=== PATIENT | male | born 1970 | race Caucasian/White ===

== ENCOUNTER → 2024-02-09 | Outpatient (CLI) | payer BC, SELFPAY | END | disposition home or self-care (01) | PROVIDERS: PCP Family Medicine; Referring Provider Psychiatry & Neurology Sleep Medicine; Visit Provider Psychiatry & Neurology Sleep Medicine | DX: G47.31 Primary central sleep apnea (principal); G47.33 Obstructive sleep apnea (adult) (pediatric) | CPT/HCPCS: 95811 ==

== ENCOUNTER → 2024-05-08 | Outpatient (CLI) | payer BC, SELFPAY | END | disposition home or self-care (01) | LOC: SL 00:48 | PROVIDERS: PCP Family Medicine; Visit Provider Nurse Practitioner Adult Health | DX: G47.31 Primary central sleep apnea (principal); G47.33 Obstructive sleep apnea (adult) (pediatric) | CPT/HCPCS: 95811 ==

== ENCOUNTER 2024-08-11 08:12 | Outpatient (CLI) | payer BC, SELFPAY ==
--- NOTE | 2024-08-11 08:25 | MRI_ITS ---
STUDY: MRI BRAIN WITH AND WITHOUT CONTRAST (ATTENTION INTERNAL AUDITORY CANALS - I.A.C.''s) REASON FOR EXAM: Male, 54 years old. SENSONEURAL HEARING LOSS,RT EAR TECHNIQUE: Standardized multiplanar fat and water weighted pulse sequences were obtained. IV 19 cc clariscan was administered for the contrast portion of the examination. COMPARISON: None. FINDINGS: Normal bilateral temporal bones. Normal bilateral internal auditory canals. There is no demonstrated intracanalicular or cisternal vestibular schwannoma (acoustic neuroma). There is no enhancement of the bilateral VIIth or VIIIth cranial nerves. Normal bilateral cochlea, vestibules and semicircular canals. Normal size of the ventricles and extra-axial spaces for the patient''s age. Normal white matter tracts of the supratentorial brain. Normal bilateral basal ganglia. Normal thalami. Normal flow voids within the major intracranial circulation suggesting patency by spin echo criteria. Normal venous enhancement. There is no enhancing intra-axial or extra-axial abnormality. There is no extra-axial fluid accumulation. Normal sella turcica, pituitary gland, infundibular stalk, optic chiasm and hypothalamus. Normal tectal plate and pineal gland. Normal midbrain, sanna and medulla. Normal cerebellum. Normal basal cisterns. No demonstrated orbital abnormality, within the constraints of a routine brain study. Mild diffuse mucosal thickening in the right maxillary sinus and small mucous retention cyst or polyp on the left. Normal calvarium and skull base. Normal visualized soft tissue structures. Normal visualized upper cervical spine. MRI/Brain W/WO Contrast IMPRESSION: Normal unenhanced and enhanced MRI of the bilateral internal auditory canals (I.A.C''s). Mild bilateral maxillary sinusitis likely chronic Electronically Signed: Devonte Magana MD at 23:01 EST ,
== END 2024-08-11 23:59 | disposition home or self-care (01) ==
PROVIDERS: PCP Family Medicine; Referring Provider Otolaryngology; Visit Provider Otolaryngology
DX: H90.41 Sensorineural hearing loss, unilateral, right ear, with unrestricted hearing on the contralateral side (principal)
CPT/HCPCS: 70553; A9575

== ENCOUNTER 2025-01-21 22:19 | Emergency (ER) | payer BC, SELFPAY ==
[2025-01-21 22:19] VITALS: BP 161/72; PULSE 92; RESP 16; TEMP 37; O2SAT 100; BMI 25.1
[2025-01-21 22:22] VITALS: O2SAT 99
[2025-01-21 22:50] LABS: Absolute Lymphocyte Count 0.69 X10^3/uL (0.83-4.51); Absolute Neutrophil Count 2.5 X10^3/uL (2.0-7.7); Basophil# 0.03 X10^3/uL; Basophil% 0.7 % (0-1); Eosinophil# 0.24 X10^3/uL; Eosinophils% 5.9 % (0-5); Hematocrit 37.5 % (40-54); Hemoglobin 13.2 g/dL (13.0-16.5); Lymphocyte # 0.69 X10^3/ul (0.83-4.51); Lymphocyte % 16.9 % (19-41); Mean Corp Hgb Conc 35.2 g/dL (32-36); Mean Corpuscular Hgb 27.7 pg (27.0-32.0); Mean Corpuscular Volume 78.8 fL (80-94); Mean Platelet Vol. 9.7 fl (6.2-12.0); Monocyte# 0.57 X10^3/uL; NRBC Flagged by Analyzer 0 % (0-5); Neutrophil # 2.53 X10^3/uL (2.7-7.7); Platelet Count 185 K/mm3 (150-450); RBC Distribution Width SD 36.5 fl (35.1-43.9); Red Blood Count 4.76 M/mm3 (4.6-6.2); White Blood Count 4.1 K/mm3 (4.4-11.0)
--- NOTE | 2025-01-21 22:50 | RAD_ITS ---
PROCEDURE: CHEST 1 VIEW (PORTABLE) 01/21/2025 REASON FOR EXAM: CHEST PAIN TECHNIQUE: Frontal view of the chest. COMPARISON: None. FINDINGS: Hardware: None. Heart: The heart size is normal. Lungs: Ill-defined, right mid lung zone opacity. Mild bilateral pulmonary opacities, greatest within the perihilar regions. No pleural effusion or pneumothorax. Bones: The bones are unremarkable. RAD/Chest 1 View (Portable) IMPRESSION: 1. Right midlung zone opacity. Repeat chest radiograph with lateral view recom mended. 2. Mild bilateral pulmonary opacities, which may reflect pneumonitis or pneumon ia. Reading Location: [id number]
[2025-01-21 23:03] LABS: Anion Gap 14 (5-15); BUN 22 mg/dL (4-19); BUN/Creat Ratio 15.7 RATIO (10-20); Calcium,Total 12.5 mg/dL (7.6-11.0); Carbon Dioxide 23.3 mmol/L (21.0-32.0); Chloride 101 mmol/L (98-108); Creatinine, Serum 1.41 mg/dL (0.70-1.20); EST Glomerular Filtration Rate 60 (>60); Estimated Creatinine Clearance 71.25 ml/min (50-250); Glucose 127 mg/dL (70-99); Potassium 4.1 mmol/L (3.3-5.1); Sodium Level 138 mmol/L (133-145); Troponin T High Sensitivity 17 ng/L (<=22)
[2025-01-21 23:19] VITALS: BP 121/95; PULSE 95; RESP 16; O2SAT 98
[2025-01-21] MEDS: Ondansetron 4 MG/2 ML Vial IV (23:30)
[2025-01-21] MEDS: 0.9% Normal Saline (1000mL) 1,000 ML 999 ML IV (23:30)
--- NOTE | 2025-01-21 23:40 | RAD_ITS ---
PROCEDURE: CHEST 1 VIEW 01/21/2025 REASON FOR EXAM: Shortness of breath TECHNIQUE: Frontal view of the chest. COMPARISON: None FINDINGS: Bilateral perihilar infiltrates are seen extending to the lower lobes. There is no demonstrated pleural abnormality. Normal heart and pericardium. Normal mediastinum and felipe. Normal visualized pulmonary arteries. Normal visualized aortic arch and descending thoracic aorta. Normal visualized thoracic spine. Normal visualized ribs, clavicles, and shoulders. There is no demonstrated abnormality of the visualized soft tissue structures of the upper abdomen. RAD/Chest 1 View IMPRESSION: Bilateral perihilar and lower lobe infiltrates. Reading [facility]
[2025-01-21 23:53] LABS: Magnesium 1.7 mg/dL (1.5-2.2)
[2025-01-22] VITALS: BP 132/87; PULSE 88; RESP 16; O2SAT 98
[2025-01-22] MEDS: 0.9% Normal Saline (1000mL) 1,000 ML 999 ML IV (00:37)
--- NOTE | 2025-01-22 00:51 | EDS_ITS ---
HPI History of Present Illness Chief Complaint: Chest Pain Informant: patient and spouse/S.O. Narrative Narrative: Patient is a 54-year-old male with type 2 diabetes currently on Trulicity and metformin. He states he has been following with his family doctor because he has been having bouts of abdominal discomfort mainly in the right upper quadrant. He states outpatient labs have shown mild hypercalcemia and he is also had a gallbladder ultrasound recently secondary to his recurrent symptoms. He states this evening however he did have more midsternal chest discomfort and as this was different from the other symptoms he has had there was concerned this could be cardiac and he presents for evaluation. Patient also reports he has had mild cough that has been recurrent over the past few weeks to month but denies any history of lung disease such as COPD emphysema smoking or vaping. [facility] Medical History (Updated 01/25/25 @ 02:[address] Elliot Caceres, DO) COVID Diabetes GERD (gastroesophageal reflux disease) Home Medications ?Medication ?Instructions ?Recorded ?Last Taken ?Type aspirin 81 mg tablet,delayed 81 mg PO DAILY 01/21/25 U nknown History release (Adult Aspirin Regimen) dulaglutide 0.75 mg/0.5 mL 0.75 mg subcut [place] 01/21/25 Unknown History subcutaneous pen injector (Trulicity) gabapentin 300 mg capsule 300 mg PO DAILY 01/21/25 Unk nown History loratadine 10 mg tablet 10 mg PO DAILY 01/21/25 Unkn own History (Allerclear) metformin 500 mg tablet,extended 1,000 mg PO BID 01/21 Unknown History release 24 hr Allergy/AdvReac Type Severity Reaction Status Date / Time Penicillins (PCN) Allergy Rash Verified 01/21/25 22:20 Social History Smoking Status: Never smoker [facility] ED Constitutional Constitutional ED: Denies chills or fever(s) ENT ENT ED: Denies sore throat Cardiovascular Cardiovascular: Reports chest pain; Denies palpitations or racing heartbeat Respiratory/Chest Respiratory/Chest: Reports cough; Denies dyspnea Gastrointestinal Gastrointestinal: Denies abdominal pain, diarrhea, nausea or vomiting Genitourinary Genitourinary ED: Denies dysuria Musculoskeletal Musculoskeletal: Denies back pain or myalgias Integumentary Denies rash Neurologic Neurologic: Denies headache(s) Hematologic/Lymphatic Hematologic/Lymphatic: Denies easy bleeding or easy bruising EXAM Physical Exam Const Vital Signs: 01/21/25 22:19 01/21/25 22:22 01/21/25 22:35 Temperature 98.6 F Temperature Source Oral Pulse Rate 92 Respiratory Rate 16 Respiratory Effort Normal Non-Labored Blood Pressure 161/72 H Blood Pressure Mean 101 Pulse Ox 100 99 Oxygen Delivery Method Room Air Room Air 01/21/25 23:19 01/22/25 00:00 Temperature Temperature Source Pulse Rate 95 88 Respiratory Rate 16 16 Respiratory Effort Blood Pressure 121/95 H 132/87 H Blood Pressure Mean 103 102 Pulse Ox 98 98 Oxygen Delivery Method Room Air Room Air Positive well nourished and well developed General Appearance ED: well developed; Negative for pallor HEENT HEENT Narrative: Normocephalic atraumatic No tongue or lip swelling no oral lesions no airway edema or compromise No secondary findings in the posterior pharynx to suggest infection Eyes PERRL and EOMs intact bilaterally General Eye ED: Negative for scleral icterus Neck supple and no JVD Neck Narrative: No nuchal rigidity or meningeal signs Chest Wall Chest Narrative: There is mild reproducible chest wall pain along the costal joints with palpation but no bony deformity or crepitance Resp normal respiratory effort Resp Narrative: Patient has faint rhonchi in the bilateral lower lobes without nasal flaring retractions tachypnea or accessory muscle use Cardio regular rate and regular rhythm Rate: other Other Details: Heart is regular rate and rhythm Radial and carotid pulses are equal and symmetric GI normal to inspection, nondistended, normoactive bowel sounds, non-tender, non- distended and no masses GI Narrative: No voluntary guarding or rigidity or pulsatile mass Auscultation: normoactive bowel sounds Palpation: soft Back/Spine no CVA tenderness Extremity normal to inspection Extremity Narrative: Negative Homans' sign bilaterally Neuro oriented x3, CN's II-XII intact bilaterally and no sensory deficits noted Sensorium / Orientation: alert Motor Exam: strength 5/5 throughout Psych mental status grossly normal Skin no rashes or lesions noted and no wounds General Skin Exam: Negative for jaundice or pallor MDM MDM MDM Narrative Medical decision making narrative: Patient arrived to the ER hypertensive but otherwise with stable vitals. He does have moderate risk factors for cardiovascular disease and the fact he is a diabetic and male over the age of 40. Secondary to this basic labs with initial and delta troponin were obtained. Based on his report of intermittent cough there is concern the chest pain could be related to lung pathology such as pneumonia pneumothorax or pleural effusion. Therefore chest x-ray was ordered. Labs revealed an initial troponin of 17 with a delta of 16 which is within normal range and indicating no signs of active heart damage. EKG was also normal sinus rhythm without ischemia or dysrhythmia change. The patient's chest x-ray did show findings concerning for pneumonia. He does not have a fever or white count but with his recurrent cough for the past weeks to months this could be atypical walking pneumonia. He is not showing signs of sepsis or hypoxia so therefore there is no need for admission. But with potential atypical/mycoplasma pneumonia I will place him on a Zithromax as well as doxycycline to cover for typical microbes. The patient is chest pain-free on reevaluation as his troponins are normal and he does not have persistent symptoms I do not feel need for further evaluation in the ER and is otherwise safe for discharge. The patient calcium is elevated at 12.5 but this is up by approximately 1 point from upper limit of normal and he is not have acute findings of hypercalcemia. I do feel that after the 2 L of IV hydration in the ER this should improve as well. As the hypercalcemia is a known issue he can continue to follow-up with his family doctor regarding this evaluation. History & Record Review Discussion w/independent historian: Patient and Significant other Lab Data Attestation: I reviewed the patient's lab results. Labs: Laboratory Results - last 24 hr 01/21/25 22:28 WBC 4.1 L RBC 4.76 Hgb 13.2 Hct 37.5 L MCV 78.8 L MCH 27.7 MCHC 35.2 RDW Std Deviation 36.5 RDW Coeff of Samuel 13.0 Plt Count 185 MPV 9.7 Immature Gran % (Auto) 0.500 Neut % (Auto) 62.0 Lymph % (Auto) 16.9 L [place] % (Auto) 14.0 H Eos % (Auto) 5.9 H Baso % (Auto) 0.7 Absolute Neuts (auto) 2.5 Absolute Lymphs (auto) 0.69 L Nucleated RBC % 0 Sodium 138 Potassium 4.1 Chloride 101 Carbon Dioxide 23.3 Anion Gap 14 BUN 22 H Creatinine 1.41 H Estim Creat Clear Calc 71.25 Est GFR (MDRD) Non-Af 60 BUN/Creatinine Ratio 15.7 Glucose 127 H Calcium 12.5 H Magnesium 1.7 Troponin T High Sens 17 Radiography Diagnostic Testing: Clinical Impression(s) from Imaging Studies Chest X-Ray 01/21/25 22:50 IMPRESSION: 1. Right midlung zone opacity. Repeat chest radiograph with lateral view recommended. 2. Mild bilateral pulmonary opacities, which may reflect pneumonitis or pneumonia. Reading Location: [facility] Chest X-Ray 01/21/25 23:40 IMPRESSION: Bilateral perihilar and lower lobe infiltrates. Reading Location: [place] [id number] Chest x-ray as interpreted by the emergency medicine physician reveals hazy opacity in the mid to lower lobes concerning for developing pneumonia Discharge Plan Triage Chief Complaint: Chest Pain ED Provider: Elliot Caceres Dx/Rx/DC Orders Clinical Impression: Nonspecific chest pain, Type 2 diabetes mellitus, Pneumonia, Hypercalcemia Prescriptions: No Action gabapentin 300 mg capsule 300 mg PO DAILY metformin 500 mg tablet extended release 24 hr 1,000 mg PO BID Trulicity 0.75 mg/0.5 mL pen injector 0.75 mg subcut [place]OU[place] loratadine [Allerclear] 10 mg tablet 10 mg PO DAILY aspirin [Adult Aspirin Regimen] 81 mg tablet,delayed release (DR/EC) 81 mg PO DAILY Primary Care Provider: Edouard Mcgee Referrals: Edouard Mcgee MD [Primary Care Provider] - Print Language: [place] Disposition Disposition: Home, Self Care Discharge Date/Time: 01/22/25 02:28
[2025-01-22 01:00] VITALS: BP 141/93; PULSE 88; RESP 14; O2SAT 97
[2025-01-22 05:28] LABS: Troponin T High Sens 2 HR 16 ng/L (<=22)
--- NOTE | 2025-01-22 06:00 | ED.RN ---
See downtime charting.
== END 2025-01-22 02:28 | disposition home or self-care (01) ==
LOC: ED 22:39
PROVIDERS: Emergency Provider Emergency Medicine; PCP Family Medicine; Visit Provider Emergency Medicine
DX: R07.9 Chest pain, unspecified (principal); E11.9 Type 2 diabetes mellitus without complications; J18.9 Pneumonia, unspecified organism; E83.52 Hypercalcemia; K21.9 Gastro-esophageal reflux disease without esophagitis; Z79.85 Long-term (current) use of injectable non-insulin antidiabetic drugs; Z79.84 Long term (current) use of oral hypoglycemic drugs; Z79.82 Long term (current) use of aspirin
CPT/HCPCS: 71045; 80048; 83735; 84484; 85025; 93005; 96361; 96374; 99284; A4216; J2405

== ENCOUNTER 2025-02-25 20:44 | Inpatient (IN) | payer BC, SELFPAY ==
[2025-02-25 20:45] VITALS: BP 124/92; PULSE 105; RESP 18; TEMP 37.3; O2SAT 95; BMI 24.4
[2025-02-25 20:48] VITALS: BP 124/92; PULSE 105; RESP 18; TEMP 37.3; O2SAT 95
--- OUTSIDE RECORDS SUMMARY | 2025-02-25 22:05 | XMS RPT_ITS | CCD ---
Author Organization [facility] Care Team Providers Care Cork Compounder Name Role Phone Edouard Noland MD Primary Care Provider Zoie Grijalva Unavailable Jairo [facility], [place]i Unavailable Zoie Grijalva Unavailable Unavailable [facility], [place] Unavailable Edouard Noland MD Primary Care Provider Haagen IMMIGRATION PARALEGAL.MOVING PICTURE OPERATORBobbi Unavailable Suppan IMMIGRATION PARALEGAL.MOVING PICTURE OPERATOR, Adrienne A Unavailable Suppan IMMIGRATION PARALEGAL.MOVING PICTURE OPERATOR, Adrienne A Unavailable [phone] Dr. Edouard Noland MD Primary Care Provider Dr. Elliot Caceres DO Emergency Provider Camryn PROCESS IMPROVEMENT SPECIALIST, Jh Briscoe Attending Unavailable Edouard Noland Primary Care Unavailable Chandler Ni Referring UnavailChandler Kingsley Attending Unavailsam e Edouard Noland Primary Care Unavailable Elliot Caceres Attending Unavailable Edouard Noland Primary Care Unavailable Edouard Ramires Referring Unavailable Edouard Ramires Attending Unavailable Edouard Noland Primary Care Unavailable EDOUARD NOLAND Referring Unavailable EDOUARD NOLAND Primary Care Unavailable EDOUARD NOLAND Referring Unavailable EDOUARD NOLAND Primary Care Unavailable EDOUARD NOLAND Referring Unavailable EDOUARD NOLAND Primary Care Unavailable JH COWAN Attending Unavailable EDOUARD NOLAND Primary Care Unavailable EDOUARD NOLAND Primary Care Unavailable BOBBI HART Attending Unavailable EDOUARD NOLAND Primary Care Unavailable BOBBI HART Referring Unavailable EDOUARD NOLAND Primary Care Unavailable BOBBI HART Referring Unavailable EDOUARD NOLAND Primary Care Unavailable JH COWAN Attending Unavailable EDOUARD NOLAND Primary Care Unavailable EDOUARD NOLAND Primary Care Unavailable EDOUARD NOLAND Attending Unavailable EDOUARD NOLAND Primary Care Unavailable EDOUARD NOLAND Referring Unavailable EDOUARD NOLAND Primary Care Unavailable EDOUARD NOLAND Referring Unavailable EDOUARD NOLAND Primary Care Unavailable EDOUARD NOLAND Referring Unavailable EDOUARD NOLAND Primary Care Unavailable EDOUARD NOLAND Primary Care Unavailable Allergies Allergy Classification Reported Allergen(s) Allergy Type Date of Onset Reaction(s) Facility (20 sources) Amoxicillin; Translations: [AMOXICILLIN] Drug Allergy 5 [facility] Work Phone: (20 sources) Animal Dander; Translations: [ANIMAL DANDER] Drug Intolerance 2 Intolerance [facility] Work Phone: (20 sources) Ketoconazole; Translations: [KETOCONAZOLE] Drug Allergy 3 [facility] (1 source) Penicillins Allergy to substance 5 [facility] (1 source) Penicillins Drug allergy (disorder) 5 [facility] Repository Medications Current Medications Medication Drug Class(es) Dates Sig (Normalized) Sig (Original) aspirin 81 mg delayed release oral tablet (20 sources) Platelet Aggregation Inhibitor, Nonsteroidal Anti-inflammatory Drug Start: 01-21-2025 take 1 tablet by mouth once daily Aspirin (Adult Aspirin Regimen) 81 mg tablet,delayed release (DR/EC) Active 81 mg PO DAILY January 21, 2025 12:00am Comment on above: Take 81 mg by mouth once daily. Blood-Glucose Meter monitoring kit (1 source) Start: 01-02-2023 End: 01-03-2023 Blood-Glucose Meter monitoring kit Indications: Controlled type 2 diabetes mellitus without complication, without long-term current use of insulin ([facility]) Glucose Meter of Choice - Kit - Dx: Type 2 DM - Controlled E11.9 1 Each 0 01/02/2023 01/03/2023 Active Comment on above: Glucose Meter of Cho ice - Kit - Dx: Type 2 DM - Controlled E11.9 Blood-Glucose Meter,Continuous (FREESTYLE WYATT 3 READER) misc (8 sources) Start: 07-02-2025 Blood-Glucose Meter,Continuous (FREESTYLE WYATT 3 READER) [facility] [place]ications: Controlled type 2 diabetes mellitus without complication, without long-term current use of insulin (HCC) Use to check blood sugar at least four (4) times daily. 1 each 01/28/2025 Active Blood-Glucose Sensor (FREESTYLE WYATT 3 PLUS SENSOR) benjy (8 sources) Start: 01-28-2025 Blood-Glucose Sensor (FREESTYLE WYATT 3 PLUS SENSOR) benjy Indications: Controlled type 2 diabetes mellitus without complication, without long-term current use of insulin (HCC) Apply new sensor every fourteen (14) days to upper arm. 6 each 3 01/28/2025 Active Blood-Glucose Sensor (FREESTYLE WYATT 3 SENSOR) benjy (20 sources) Start: 01-16-2024 Blood-Glucose Sensor (FREESTYLE WYATT 3 SENSOR) benjy Indications: Controlled type 2 diabetes mellitus without complication, without long-term current use of insulin (HCC) Apply new sensor every fourteen (14) days to upper arm. 6 Each 4 01/16/2024 Active Start: 01-08-2023 End: 01-16-2024 Blood-Glucose Sensor (FREEST YLE WYATT 3 SENSOR) benjy Indications: Controlled type 2 diabetes mellitus without complication, without long-term current use of insulin (HCC) Apply new sensor every fourteen (14) days to upper arm. 6 Each 4 01/08/2023 01/16/2024 Discontinued Start: 01-08-2023 Blood-Glucose Sensor (FREESTYLE WYATT 3 SENSOR) benjy Indications: Controlled type 2 diabetes mellitus without complication, without long-term current use of insulin (HCC) Apply new sensor every fourteen (14) days to upper arm. 6 Each 4 01/08/2023 Active Comment on above: Apply new sensor lowell ry fourteen (14) days to upper arm. CPAP/BIPAP/OTHER (20 sources) Start: 10-09-2024 End: 02-24-2052 CPAP/BIPAP/OTHER Indications: Central sleep apnea , MIKHAIL (obstructive sleep apnea) biPAP ST 16/11 cmH2O with BUR 12 DME [facility] 1 Each 10/09/2024 02/24/2052 Active Start: 09-01-2024 End: 01-17-2052 CPAP/BIPAP/OTHER Bilevel ST 14/10 cmH2O with BUR 12 BPM [facility] 1 Each 09/01/2024 01/17/2052 Active Start: 05-27-2024 End: 09-01-2024 CPAP/BIPAP/OTHER biPAP ST 13 /9 cmH2O with BUR [address] [facility] [place] 1 Each 05/27/2024 09/01/2024 Discontinued Start: 05-27-2024 End: 10-12-2051 CPAP/BIPAP/OTHER biPAP ST 13 /9 cmH2O with BUR 12 bpm [facility] 1 Each 05/27/2024 10/12/2051 Active 0.5 ml dulaglutide 1.5 mg/ml auto-injector (19 sources) GLP-1 Receptor Agonist Start: 01-12-2025 End: 01-12-2026 inject 0.75 mg by subcutaneous injection every week dulaglutide (TRULICITY) 0.75 mg/0.5 mL pen injector Indications: Controlled type 2 diabetes mellitus without complication, without long-term current use of insulin (HCC) Inject 0.75 mg subcutaneously one time a week. 6 mL 3 01/12/2025 01/12/2026 Active flash glucose sensor (FREESTYLE WYATT 2 SENSOR) kit (20 sources) Start: 01-16-2024 flash glucose sensor (FREESTYLE WYATT 2 SENSOR) kit Indications: Controlled type 2 diabetes mellitus without complication, without long-term current use of insulin (HCC) Apply new sensor every fourteen (14) days to upper arm. 6 Each 4 01/16/2024 Active Start: 01-16-2023 End: 01-16-2024 flash glucose sensor (FREEST YLE WYATT 2 SENSOR) kit Indications: Controlled type 2 diabetes mellitus without complication, without long-term current use of insulin (HCC) Apply new sensor every fourteen (14) days to upper arm. 6 Each 4 01/16/2023 01/16/2024 Discontinued Start: 01-16-2023 flash glucose sensor (FREESTYLE WYATT 2 SENSOR) kit Indications: Controlled type 2 diabetes mellitus without complication, without long-term current use of insulin (HCC) Apply new sensor every fourteen (14) days to upper arm. 6 Each 4 01/16/2023 Active Comment on above: Apply new sensor lowell ry fourteen (14) days to upper arm. fluconazole 150 mg oral tablet (11 sources) Azole Antifungal Start: End: take 1 tablet by mouth every week fluconazole (DIFLUCAN) 150 mg tablet Take 1 tablet by mouth one time a week. 4 tablet 0 11/12/2023 12/12/2023 Active Start: 11-01-2023 End: 04-18-2024 fluconazole (DIFLUCAN) 150 m g tablet Indications: Tinea corporis I tab by mouth every 3 days until gone 3 tablet 11/01/2023 04/18/2024 Discontinued Comment on above: I tab by mouth every 3 days until gone Take 1 tablet by odessa th one time a week. gabapentin 300 mg oral capsule (20 sources) Anti-epileptic Agent Start: 01-14-2024 End: 12-02-2024 gabapentin (NEURONTIN) 300 mg capsule Indications: RLS (restless legs syndrome) Take 1 capsule after arriving home from work or 1 hour before bedtime. 90 capsule 1 09/01/2024 Active loratadine 10 mg oral tablet (20 sources) Start: 01-21-2025 take 1 tablet by mouth once daily Loratadine (Allerclear) 10 mg tablet Active 10 mg PO DAILY January 21, 2025 12:00am loratadine 10 mg cap Take by mouth. Active Comment on above: Take by mouth. 24 hr metFORMIN hydrochloride 500 mg extended release oral tablet (20 sources) Biguanide Start: 01-21-2025 take 3 tablets by mouth once daily metFORMIN ER (GLUCOPHAGE XR) 500 mg 24 hr tablet Take 3 tablets by mouth once daily. 270 tablet 01/21/2025 Active Start: 01-21-2025 Metformin 500 mg tablet extended release 24 hr Active 1000 mg PO TWICE A DAY January 21, 2025 12:00am Start: 09-22-2024 End: 01-12-2025 take 4 tablets by mouth once daily metFORMIN ER (GLUCOPHAGE XR) 500 mg 24 hr tablet Take 4 tablets by mouth once daily. 360 tablet 3 09/22/2024 01/12/2025 Discontinued Start: 08-13-2023 End: 09-20-2024 take 4 tablets by mouth once daily metFORMIN ER (GLUCOPHAGE XR) 500 mg 24 hr tablet Take 4 tablets by mouth once daily. 360 tablet 3 08/13/2023 09/20/2024 Discontinued Start: 06-25-2023 take 1 tablet by odessa th twice daily at mealtime metFORMIN (GLUCOPHAGE) 500 mg tablet Indications: Controlled type 2 diabetes mellitus without complication, without long-term current use of insulin (HCC) Take 1 tablet by mouth two times a day with meals. 180 tablet 0 06/25/2023 Active Start: 01-02-2023 End: 01-02-2024 take 1 tablet by mouth once daily at breakfast metFORMIN (GLUCOPHAGE) 500 mg tablet Indications: Controlled type 2 diabetes mellitus without complication, without long-term current use of insulin (HCC) Take 1 tablet by mouth daily with breakfast. 90 tablet 3 01/02/2023 06/25/2023 Discontinued Comment on above: Take 1 tablet by odessa th daily with breakfast. Take 1 tablet by odessa th two times a day with meals. Take 4 tablets by mo uth once daily. sildenafil 100 mg oral tablet (18 sources) Phosphodiesterase 5 Inhibitor Start: End: take 1 tablet by mouth once daily as needed sildenafil (VIAGRA) 100 mg tablet Indications: Erectile dysfunction, unspecified erectile dysfunction type Take 1 tablet by mouth once daily as needed. Take 30-60 minutes before sexual activity. 6 tablet 01/12/2025 01/12/2026 Active terbinafine hydrochloride 10 mg/ml topical cream (3 sources) Allylamine Antifungal Start: End: terbinafine HCl (LAMISIL AT) 1 % cream Indications: Tinea corporis Apply to affected area two times a day for 14 days. 30 g 1 11/12/2023 11/26/2023 Active Comment on above: Apply to affected ar ea two times a day for 14 days. triamcinolone acetonide 1 mg/ml topical cream (2 sources) Corticosteroid Start: End: triamcinolone acetonide (KENALOG) 0.1 % cream Indications: Tinea corporis Apply 1 application to affected area two times a day for 14 days. Apply to affected area. Location: multiple 15 g 1 11/01/2023 11/15/2023 Active Comment on above: Apply 1 application to affected area two times a day for 14 days. Apply to affected area. Location: multiple Completed/Discontinued Medications Medication Drug Class(es) Dates Sig (Normalized) Sig (Original) acetaminophen 325 mg / oxyCODONE hydrochloride 5 mg oral tablet (1 source) Opioid Agonist Start: 01-15-2016 End: 01-21-2025 Oxycodone-Acetamino phen 1 TABLET tablet Discontinued 1 - 2 {tbl} PO EVERY 6 HOURS NEEDED as needed for Mod/Severe (pain scale 6-10) January 15, 2016 12:00am January 21, 2025 10:30pm apple cider vinegar 600 mg oral capsule (9 sources) End: 01-21-2025 APPLE CIDER VINEGAR ORAL Take 600 mg by mouth. 01/21/2025 Discontinued Ascorbic Acid (20 sources) Vitamin C End: 07-07-2024 ascorbic acid (VITAMIN C ORAL) Take by mouth. 07/07/2024 Discontinued ascorbic acid (V ITAMIN C ORAL) Take by mouth. Active ascorbic acid (V ITAMIN C ORAL) Take by mouth. 0 Active Comment on above: Take by mouth. cholecalciferol, vitamin D3, (VITAMIN D3 ORAL) (20 sources) End: 01-21-2025 cholecalciferol, vitamin D3, (VITAMIN D3 ORAL) Take 2,000 Units by mouth. 01/21/2025 Discontinued cholecalciferol, vitamin D3, (VITAMIN D3 ORAL) Take 2,000 Units by mouth. Active cholecalciferol, vitamin D3, (VITAMIN D3 ORAL) Take by mouth. Active cholecalciferol, vitamin D3, (VITAMIN D3 ORAL) Take by mouth. 0 Active Comment on above: Take by mouth. Cinnamon Preparation (20 sources) Non-Standardized Food Allergenic Extract End: 01-21-2025 CINNAMON With berberine 01/21/2025 Discontinued CINNAMON With be rberine Active CINNAMON Active CINNAMON COMPOUNDED PRESCRIPTION (20 sources) Start: 05-27-2019 End: 09-02-2024 COMPOUNDED PRESCRIPTION Yecenia cations: MIKHAIL (obstructive sleep apnea) Nasal mask for CPAP and any other necessary supplies such as tubing #1 G47.33 MIKHAIL (obstructive sleep apnea) (primary encounter diagnosis) 1 Each 05/27/2019 09/02/2024 Discontinued Start: 05-27-2019 COMPOUNDED PRE SCRIPTION Indications: MIKHAIL (obstructive sleep apnea) Nasal mask for CPAP and any other necessary supplies such as tubing #1 G47.33 MIKHAIL (obstructive sleep apnea) (primary encounter diagnosis) 1 Each 05/27/2019 Active Start: 05-27-2019 COMPOUNDED PRE SCRIPTION Indications: MIKHAIL (obstructive sleep apnea) Nasal mask for CPAP and any other necessary supplies such as tubing #1 G47.33 MIKHAIL (obstructive sleep apnea) (primary encounter diagnosis) 1 Each 0 05/27/2019 Active Start: 02-28-2016 End: 09-02-2024 COMPOUNDED PRESCRIPTION Yecenia cations: MIKHAIL (obstructive sleep apnea) Mask (per patient preference) optional chin strap (if indicated) , filters, tubing, humidifier and lifetime supplies. Dx. MIKHAIL G47.33 1 Each 0 02/28/2016 09/02/2024 Discontinued Start: 02-28-2016 COMPOUNDED PRE SCRIPTION Indications: MIKHAIL (obstructive sleep apnea) Mask (per patient preference) optional chin strap (if indicated) , filters, tubing, humidifier and lifetime supplies. Dx. MIKHAIL G47.33 1 Each 0 02/28/2016 Active Start: 01-12-2015 End: 09-02-2024 COMPOUNDED PRESCRIPTION cpap supplies, including mask. DX: MIKHAIL 1 Units 0 01/12/2015 09/02/2024 Discontinued Start: 01-12-2015 COMPOUNDED PRE SCRIPTION cpap supplies, including mask. DX: MIKHAIL 1 Units 0 01/12/2015 Active Start: 05-03-2012 End: 09-02-2024 COMPOUNDED PRESCRIPTION Init iate CPAP @ 11 cm of water with humidification. EPR setting of 3. Mask (per patient preference) Mirage FX wide was used during study. Chin strap (if indicated) tubing, filters, humidifier and lifetime supplies. Dx. Central Sleep Apnea 327.2 1 Device 0 05/03/2012 09/02/2024 Discontinued Start: 05-03-2012 COMPOUNDED PRE SCRIPTION Initiate CPAP @ 11 cm of water with humidification. EPR setting of 3. Mask (per patient preference) Mirage FX wide was used during study. Chin strap (if indicated) tubing, filters, humidifier and lifetime supplies. Dx. Central Sleep Apnea 327.2 1 Device 0 05/03/2012 Active Comment on above: Initiate CPAP @ 11 c m of water with humidification. EPR setting of 3. Mask (per patient preference) Mirage FX wide was used during study. Chin strap (if indicated) tubing, filters, humidifier and lifetime supplies. Dx. Central Sleep Apnea 327.2 cpap supplies, inclu ding mask. DX: MIKHAIL Mask (per patient pr eference) optional chin strap (if indicated) , filters, tubing, humidifier and lifetime supplies. Dx. MIKHAIL G47.33 Nasal mask for CPAP and any other necessary supplies such as tubing #1 G47.33 MIKHAIL (obstructive sleep apnea) (primary encounter diagnosis) dihydroberberine (BERBERINE ES-5 ORAL) (17 sources) End: 2024 take 1 tablet by mouth once daily dihydroberberine (BERBERINE ES-5 ORAL) Take 1 tablet by mouth once daily. 01/21/2025 Discontinued take 1 tablet by mouth once sarah y dihydroberberine (BERBERINE ES-5 ORAL) Take 1 tablet by mouth once daily. Active fluticasone propionate 0.05 mg/actuat metered dose nasal spray (4 sources) Corticosteroid Start: 05-21-2019 End: 01-02-2023 take 2 spray(s) by mouth once daily fluticasone (FLONASE) 50 mcg/actuation nasal spray Indications: MIKHAIL (obstructive sleep apnea) Use 2 Sprays in each nostril once daily. Rinse mouth after use. 1 Bottle 11 05/21/2019 01/02/2023 Discontinued (Discontinued by Patient) Start: 01-14-2016 End: 01-21-2025 Fluticasone Propionate 1 SPR AY spray,suspension Discontinued 1 NMA NASAL DAILY January 14, 2016 12:00am January 21, 2025 10:30pm Comment on above: Use 2 Sprays in each nostril once daily. Rinse mouth after use. ketoconazole 20 mg/ml topical cream (3 sources) Azole Antifungal Start: 9 End: 3 ketoconazole (NIZORAL) 2 % cream Indications: Tinea cruris , Dermatitis Apply 1 application to affected area twice daily. 45 g 1 05/21/2019 01/02/2023 Discontinued (Allergic response) Comment on above: Apply 1 application to affected area twice daily. lutein 25 mg / zeaxanthin 5 mg oral capsule (20 sources) Start: 3 End: 5 take 1 capsule by mouth once daily lutein-zeaxanthin 25-5 mg cap Take 1 capsule by mouth once daily. 07/02/2023 01/21/2025 Discontinued Comment on above: Take 1 capsule by [facility] once daily. Magnesium (20 sources) End: MAGNESIUM ORAL Take 400 mg by mouth. 01/21/2025 Discontinued MAGNESIUM ORAL T neris 400 mg by mouth. Active MAGNESIUM ORAL T neris by mouth. Active MAGNESIUM ORAL T neris by mouth. 0 Active Comment on above: Take by mouth. MEDICATION, NON-DATABASE (20 sources) End: 07-07-2024 MEDICATION, NON-DATABASE Billberry and Lion's Eric 07/07/2024 Discontinued MEDICATION, NON- DATABASE Billberry and Lion[employer] Eric Active MEDICATION, NON- DATABASE Billberry and Lion[employer] Eric 0 Active Comment on above: Billberry and Lion[employer] Eric mometasone furoate 1 mg/ml topical cream (9 sources) Corticosteroid Start: 05-21-20 End: 06-19-20 mometasone (ELOCON) 0.1 % cream Indications: Dermatitis Apply 1 application to affected area once daily. 45 g 0 05/21/2019 06/19/2023 Discontinued Comment on above: Apply 1 application to affected area once daily. multivitamin tablet (9 sources) End: 01-22-20 take 1 tablet by mouth once daily multivitamin tablet Take 1 tablet by mouth once daily. 01/21/2025 Discontinued take 1 tablet by mouth once sarah y multivitamin tablet Take 1 tablet by mouth once daily. Active nystatin [id number] unt/ml topical cream (20 sources) Polyene Antifungal Start: 09-06-2023 End: 04-18-2024 nystatin (MYCOSTATIN) cream Indications: Chloe albicans infection Apply 1 application to affected area two times a day. 45 g 09/06/2023 04/18/2024 Discontinued Start: 01-02-2023 End: 06-19-2023 nystatin (MYCOSTATIN) cream Indications: Chloe albicans infection Apply 1 application to affected area twice daily. 45 g 0 01/02/2023 06/19/2023 Discontinued Comment on above: Apply 1 application to affected area twice daily. Apply 1 application to affected area two times a day. omeprazole 20 mg delayed release oral capsule (1 source) Proton Pump Inhibitor Start: End: take 1 capsule by mouth at bedtime Omeprazole 20 MG capsule Discontinued 20 mg PO AT BEDTIME January 14, 2016 12:00am January 21, 2025 10:31pm OTC NUTRITIONAL SUPPLEMENT (9 sources) End: 5 OTC NUTRITIONAL SUPPLEMENT Sodium bytyrate 01/21/2025 Discontinued OTC NUTRITIONAL SUPPLEMENT Sodium bytyrate Active Turmeric extract (20 sources) Start: 07-02-2023 End: 01-21-2025 take 1 capsule by mouth once daily turmeric 400 mg cap Take 1 capsule by mouth once daily. 07/02/2023 01/21/2025 Discontinued Start: 07-02-2023 take 1 capsule by mo uth once daily turmeric 400 mg cap Take 1 capsule by mouth once daily. 07/02/2023 Active Start: 07-02-2023 take 1 capsule by mo uth once daily turmeric 400 mg cap Take 1 capsule by mouth once daily. 0 07/02/2023 Active Comment on above: Take 1 capsule by mo uth once daily. vit C/E/Zn/coppr/lutein/ze axan (PRESERVISION AREDS-2 ORAL) (20 sources) End: 07-07-2024 vit C/E/Zn/coppr/lutein/zeaxan (PRESERVISION AREDS-2 ORAL) Take by mouth. 07/07/2024 Discontinued vit C/E/Zn/coppr /lutein/zeaxan (PRESERVISION AREDS-2 ORAL) Take by mouth. Active vit C/E/Zn/coppr /lutein/zeaxan (PRESERVISION AREDS-2 ORAL) Take by mouth. 0 Active Comment on above: Take by mouth. VITAMIN A ORAL (20 sources) End: 07-07-2024 VITAMIN A ORAL Take by mouth . 07/07/2024 Discontinued (Other) VITAMIN A ORAL T neris by mouth. Active VITAMIN A ORAL T neris by mouth. 0 Active Comment on above: Take by mouth. VITAMIN B COMPLEX ORAL (6 sources) End: 06-19-2023 VITAMIN B COMPLEX ORAL Take by mouth. 0 06/19/2023 Discontinued VITAMIN B COMPLE X ORAL Take by mouth. 0 Active Comment on above: Take by mouth. Zinc (20 sources) End: 01-21-2025 ZINC ORAL Take 50 mg by mout h. 01/21/2025 Discontinued ZINC ORAL Take 5 0 mg by mouth. Active ZINC ORAL Take b y mouth. Active ZINC ORAL Take b y mouth. 0 Active Comment on above: Take by mouth. Problems Active Problems Problem Classification Problem Date Documented Date Episodic/Chronic Diabetes mellitus without complication (20 sources) Type 2 diabetes mellitus without complication; Translations: [Type 2 diabetes mellitus without complications] Onset: 01-02-2023 Chronic Diabetes mellitus without complication (1 source) Hyperglycemia; Translations: [Hyperglycemia, unspecified] Episodic Disorders of lipid metabolism (4 sources) Hypertriglyceridemia; Translations: [Pure hyperglyceridemia] Onset: 07-07-2024 06-19-2023 Chronic Immunizations and screening for infectious disease (1 source) Vaccination needed; Translations: [Encounter for immunization] Episodic Malaise and fatigue (2 sources) Fatigue; Translations: [Other fatigue] Onset: 01-12-2025 01-12-2025 Episodic Mycoses (4 sources) Infection by Chloe albicans; Translations: [Candidiasis, unspecified] Episodic Nonspecific chest pain (1 source) Chest pain, unspecified; Translations: [Chest pain, unspecified] Onset: 01-27-2025 Episodic Nutritional deficiencies (20 sources) Vitamin D deficiency; Translations: [Vitamin D deficiency, unspecified] Onset: 01-02-2023 Chronic Other bone disease and musculoskeletal deformities (3 sources) Osteopenia; Translations: [Other specified disorders of bone density and structure, multiple sites] 01-12-2025 Episodic Other bone disease and musculoskeletal deformities (1 source) Disorder of skeletal system; Translations: [Disorder of bone, unspecified] 01-12-2025 Episodic Other bone disease and musculoskeletal deformities (2 sources) Other specified disorders of bone density and structure, multiple sites; Translations: [Osteopenia of multiple sites] Onset: 01-12-2025 Episodic Other bone disease and musculoskeletal deformities (1 source) Disorder of bone, unspecified; Translations: [Disorder of bone and cartilage] Onset: 01-12-2025 Episodic Other bone disease and musculoskeletal deformities (1 source) Disorder of cartilage, unspecified; Translations: [Disorder of bone and cartilage] Onset: 01-12-2025 Episodic Other connective tissue disease (1 source) Muscle weakness; Translations: [Muscle weakness (generalized)] 07-02-2023 Episodic Other connective tissue disease (1 source) Cramp; Translations: [Cramp and spasm] 01-04-2024 Episodic Other connective tissue disease (1 source) Muscle weakness of limb; Translations: [Other symptoms and signs involving the musculoskeletal system] 01-04-2024 Episodic Other diseases of kidney and ureters (2 sources) Renal impairment; Translations: [Disorder of kidney and ureter, unspecified] 02-12-2025 Episodic Other ear and sense organ disorders (1 source) Sensorineural hearing loss, unilateral, right ear, with unrestricted hearing on the contralateral side; Translations: [Sensorineural hearing loss, unilateral, right ear, with unrestricted hearing on the contralateral side] Onset: 09-01-2024 Chronic Other hereditary and degenerative nervous system conditions (4 sources) Restless legs; Translations: [Restless legs syndrome] 01-14-2024 Chronic Other hereditary and degenerative nervous system conditions (1 source) Restless legs syndrome; Translations: [RLS (restless legs syndrome)] Onset: 09-01-2024 Chronic Other liver diseases (2 sources) Alkaline phosphatase raised; Translations: [Abnormal levels of other serum enzymes] 07-29-2024 Episodic Other liver diseases (3 sources) Elevated liver enzymes level; Translations: [Abnormal levels of other serum enzymes] 01-16-2025 Episodic Other liver diseases (2 sources) Abnormal levels of other serum enzymes; Translations: [Elevated liver enzymes] Onset: 08-13-2024 Episodic Other male genital disorders (2 sources) Male erectile dysfunction, unspecified; Translations: [Impotence of organic origin] Onset: 01-12-2025 01-12-2025 Chronic Other nervous system disorders (2 sources) Paresthesia; Translations: [Paresthesia of skin] Episodic Other nervous system disorders (1 source) Paresthesia of skin; Translations: [Paresthesia] Onset: 01-12-2025 Episodic Other nutritional; endocrine; and metabolic disorders (3 sources) Hypercalcemia; Translations: [Hypercalcemia] 01-13-2025 Chronic Other nutritional; endocrine; and metabolic disorders (1 source) Hypercalcemia; Translations: [Hypercalcemia] Onset: 02-10-2025 Chronic Other nutritional; endocrine; and metabolic disorders (1 source) Weight loss; Translations: [Abnormal weight loss] Episodic Pneumonia (except that caused by tuberculosis or sexually transmitted disease) (3 sources) Bacterial pneumonia; Translations: [Unspecified bacterial pneumonia] Onset: 02-23-2025 02-02-2025 Episodic Residual codes; unclassified (20 sources) Obstructive sleep apnea syndrome; Translations: [Obstructive sleep apnea (adult) (pediatric)] Onset: 04-11-2012 07-25-2021 Chronic Residual codes; unclassified (20 sources) Central sleep apnea syndrome; Translations: [Primary central sleep apnea] Onset: 04-18-2024 01-14-2024 Chronic Residual codes; unclassified (20 sources) Uses home bilevel positive airway pressure ventilation; Translations: [Dependence on other enabling machines and devices] Onset: 09-01-2024 09-01-2024 Chronic Residual codes; unclassified (1 source) Periodic limb movement disorder; Translations: [Periodic limb movement disorder] 09-02-2024 Chronic Residual codes; unclassified (2 sources) Primary central sleep apnea; Translations: [Primary central sleep apnea] Onset: 04-18-2024 Chronic Residual codes; unclassified (1 source) Obstructive sleep apnea (adult) (pediatric); Translations: [MIKHAIL (obstructive sleep apnea)] Onset: 01-10-2024 Chronic Residual codes; unclassified (1 source) Dependence on other enabling machines and devices; Translations: [Uses bilevel positive airway pressure (BPAP) ventilation at home] Onset: 09-01-2024 Chronic Residual codes; unclassified (1 source) Periodic limb movement disorder; Translations: [PLMD (periodic limb movement disorder)] Onset: 09-01-2024 Chronic Screening and history of mental health and substance abuse codes (2 sources) Encounter for screening examination for other mental health and behavioral disorders; Translations: [Encounter for screening for depression] Onset: 01-12-2025 Episodic Past or Other Problems Problem Classification Problem Date Documented Da te Episodic/Chronic Appendicitis and other appendiceal conditions (20 sources) Acute appendicitis with localized peritonitis; Translations: [Acute appendicitis with localized peritonitis, without perforation or gangrene] Onset: 01-18-2016 Resolved: 01-02-2023 01-18-2016 Episodic Other circulatory disease (20 sources) Elevated blood-pressure reading without diagnosis of hypertension; Translations: [Elevated blood-pressure reading, without diagnosis of hypertension] Onset: 03-28-2018 03-28-2018 Episodic Other circulatory disease (1 source) Elevated blood-pressure reading, without diagnosis of hypertension; Translations: [Elevated blood pressure reading without diagnosis of hypertension] Onset: 03-28-2018 Episodic Other connective tissue disease (20 sources) Ganglion cyst; Translations: [Ganglion, unspecified site] Onset: 03-28-2018 03-28-2018 Episodic Other ear and sense organ disorders (20 sources) Tinnitus of right ear; Translations: [Tinnitus, right ear] Onset: 10-19-2010 10-19-2010 Episodic Other nutritional; endocrine; and metabolic disorders (20 sources) Obese class I; Translations: [Obesity, unspecified] Onset: 03-28-2018 Resolved: 01-12-2025 03-28-2018 Chronic Other screening for suspected conditions (not mental disorders or infectious disease) (20 sources) Patient encounter status; Translations: [Encounter for screening for lipoid disorders] Onset: 08-07-2008 Episodic Spondylosis; intervertebral disc disorders; other back problems (20 sources) Cervical radiculitis; Translations: [Radiculopathy, cervical region] Onset: 10-19-2010 10-19-2010 Episodic Results Test Name Value Interpretation Reference Range Facility 1,25-dihydroxyvitamin D3 [Ma ss/Vol]on 02-10-2025 VIT D1,25 DIHYDROXY 91.1 pg/mL High 19.9-79.3 [facility] Comment on above: Order Comment: Speci men Type: BLOOD SPECIMENOrdering Facility: [facility] Address: [address] [place] [address] Performed By: #### 1 649-3, 1988-09 ####[facility] [id number] [place] [address] [place] 25(OH)D3 [facility] 2024 25-hydroxyvitamin D3 [Mass/Vol] 26.5 ng/mL Low 31.0-80.0 [facility] Comment on above: Order Comment: Speci men Type: BLOOD SPECIMENOrdering Facility: [facility] Address: [address] [place] [address] Performed By: #### 1 6493, 1988-09 ####[facility] [id number] [place] [id number] [place] Basic metabolic 2000 panelon 02-10-2025 Anion gap [Moles/Vol] 12 mmol/L Normal 8-15 [facility] Comment on above: Order Comment: Speci men Type: BLOOD SPECIMEN [facility] Address: [address] [place] [address] Performed By: #### 5 5454-3 #### [facility] CLIA [id number] [address] [place] [address] [place] Calcium [Mass/Vol] 11.3 mg/dL High 8.5-10.2 [facility] Comment on above: Order Comment: Speci men Type: BLOOD SPECIMEN [facility] Address: [address] [place] [address] Performed By: #### 5 5454-3 #### [facility] CLIA [id number] [address] [place] [address] [place] Chloride [Moles/Vol] 102 mmol/L Normal 98-107 [facility] Comment on above: Order Comment: Speci men Type: BLOOD SPECIMEN [facility] Address: [address] [place] [address] Performed By: #### 5 5454-3 #### [facility] CLIA [id number] [address] [place] [address] [place] CO2 [Moles/Vol] 23 mmol/L Normal 22-30 [facility] Comment on above: Order Comment: Speci men Type: BLOOD SPECIMEN [facility] Address: [address] [place] [address] Performed By: #### 5 5454-3 #### [facility] CLIA [id number] [address] [place], [place] [id number] [place] Creatinine [Mass/Vol] 1.37 mg/dL High 0.73-1.22 [facility] Comment on above: Order Comment: Jhony brunner Type: BLOOD SPECIMEN [facility] Address: [address] [place] [address] Performed By: #### 5 5454-3 #### [facility] CLIA [id number] [address] [place] [address] [place] eGFRcr SerPlBld CKD-EPI 2020 62 mL/min/1.73m??? Normal >=60 [facility] Comment on above: Order Comment: Jhony brunner Type: BLOOD SPECIMEN [facility] Address: [address] [place] [address] Result Comment: Lynne mated Glomerular Filtration Rate (eGFR) is calculated using the 2020 CKD-EPI creatinine equation. This equation utilizes serum creatinine, sex, and age as parameters. The creatinine assay has traceable calibration to isotope dilution-mass spectrometry. Refer to KDIGO guidelines for clinical interpretation. In patients with unstable renal function, e.g. those with acute kidney injury, the eGFR may not accurately reflect actual GFR. Performed By: #### 5 5454-3 #### [facility] CLIA [id number] [address] [place] [address] [place] Glucose [Mass/Vol] 136 mg/dL High 74-99 [facility] Comment on above: Order Comment: Jhony brunner Type: BLOOD SPECIMEN [facility] Address: [address] [place] [address] Result Comment: The [place] Diabetes Association (ADA) provides guidance for cutoff values for fasting glucose and random glucose. The ADA defines fasting as no caloric intake for at least 8 hours. Fasting plasma glucose results between 100 to 125 mg/dL indicate increased risk for diabetes (prediabetes). Fasting plasma glucose results greater than or equal to 126 mg/dL meet the criteria for diagnosis of diabetes. In the absence of unequivocal hyperglycemia, results should be confirmed by repeat testing. In a patient with classic symptoms of hyperglycemia or hyperglycemic crisis, random plasma glucose results greater than or equal to 200 mg/dL meet the criteria for diagnosis of diabetes. Reference: Standards of Medical Care in Diabetes 2016, [place] Diabetes Association. Diabetes Care. 2016.39(Suppl 1). Performed By: #### 5 5454-3 #### [facility] CLIA [id number] [address] [place] [address] [place] Potassium [Moles/Vol] 3.9 mmol/L Normal 3.7-5.1 [facility] Comment on above: Order Comment: Speci men Type: BLOOD SPECIMEN [facility] Address: [address] [place] [address] Performed By: #### 5 5454-3 #### [facility] CLIA [id number] [address] [place] [address] [place] Sodium [Moles/Vol] 137 mmol/L Normal 136-144 [facility] Comment on above: Order Comment: Speci men Type: BLOOD SPECIMEN [facility] Address: [address] [place] [address] Performed By: #### 5 5454-3 #### [facility] CLIA [id number] [address] [place] [address] [place] Urea nitrogen [Mass/Vol] 18 mg/dL Normal 9-24 [facility] Comment on above: Order Comment: Speci men Type: BLOOD SPECIMEN [facility] Address: [address] [place] [address] Performed By: #### 5 5454-3 #### [facility] CLIA [id number] [address] [place] [address] [place] PTH RELATED PEPTIDEon 2024 PTH RELATED PEPTIDE 3.2 pmol/L High 0.0-2.3 [facility] Comment on above: Order Comment: Speci men Type: BLOOD SPECIMENOrdering Facility: [facility] Address: [address] [place] [address] Result Comment: INTE RPRETIVE INFORMATION: Parathyroid Hormone-Related Peptide This test was developed and its performance characteristics determined by [facility]. It has not been cleared or approved by the US Food and Drug Administration. This test was performed in a CLIA certified laboratory and is intended for clinical purposes. Performed By: [facility] [address] [place] [address] Metal Turner: Bg Merida MD, PhD [place] Number: [id number] Performed By: #### P [facility] ####[facility] [id number] [place] [address] BD DXA - AXIAL SKELETONon BD DXA - AXIAL SKELETON * * *Final Report* * * DATE OF EXAM: Feb 03 2025 11:33AM RHB 0804 - BD DXA - AXIAL SKELETON / PROCEDURE REASON: Osteopenia of multiple sites M85.89 * * * * Physician Interpretation * * * * EXAMINATION: DXA BONE DENSITOMETRY BD DXA - AXIAL SKELETON, BD DXA TRABECLR BONE SCORE (TBS) PATIENT DEMOGRAPHICS: Age: 54 years, Gender: Male SCANNER INFORMATION: DXA Model: Arimaz C [id number] Date Scanned: 02/03/2025 11:33 AM CLINICAL HISTORY: DIAGNOSTIC Osteopenia of multiple sites . RISK FACTORS FOR OSTEOPOROSIS AND ASSOCIATED FRACTURES REPORTED BY THIS PATIENT: Please refer to Bone Health Questionnaire in the EMR CURRENT THERAPY: Please refer to Bone Health Questionnaire in the EMR TECHNICAL LIMITATIONS: RESULTS: Lumbar spine (L1, L2, L3, L4): 1.121 g/cm2, T-score 0.3, Z-score 0.7 Left Femoral Neck: 0.949 g/cm2, T-score 0.1, Z-score 0.9 Left Total Hip: 1.047 g/cm2, T-score 0.1, Z-score 0.4 Left Forearm, Distal 1/3 of Radius: 0.767 g/cm2, T-score -0.9, Z-score -0.4 No comparison data - the patient has not had a previous bone density in the [facility] or the previous bone density was performed on a different DXA machine (new, updated model or different location) within the [facility]. VERTEBRAL FRACTURE ASSESSMENT Not performed. TRABECULAR BONE ASSESSMENT TBS score: 1.417 Bone micro-architecture: Normal (> 1.310) IMPRESSION: THE LOWEST T-SCORE IS -0.9 IN THE LEFT FOREARM 1) DIAGNOSIS (based on BMD alone): NORMAL BONE DENSITY - Caution: Medical conditions other than osteoporosis may cause low bone density, such as osteomalacia or renal osteodystrophy. Clinical correlation is necessary. 2) FRACTURE RISK (based on BMD and TBS) - LOW - Caution: Fracture risk may be increased independent of BMD in patients with corticosteroid use, age greater than 65 years, or a history of prior fragility fracture. - FRAX was not calculated: normal bone density RECOMMENDATIONS: Follow-up in 2 years or as clinically indicated. Patients that are taking corticosteroids, are transplant recipients or have hyperparathyroidism should have annual follow-up. Follow-up scans should always be done on the same machine for accurate comparison. FOR MORE INFORMATION ABOUT DIAGNOSIS AND TREATMENT: [facility] Center for Osteoporosis and Metabolic Bone Disease:? www.ccf.org/arthritis/oste o National Osteoporosis Foundation:? www.nof.org International Society of Clinical Densitometry www.iscd.org Poker Prop Player: STEPHAN Transcribe Date/Time: Feb 06 2025 6:59A Dictated by : YAMILETH ZAMAN MD This examination was interpreted and the report reviewed and electronically signed by: YAMILETH ZAMAN MD on Feb 06 2025 7:01AM EST [id number] -0.9 Normal [facility] BD DXA TRABECLR BONE SCORE ( TBS)on 02-03-2025 BD DXA TRABECLR BONE SCORE (TBS) * * *Final Report* * * DATE OF EXAM: Feb 03 2025 11:33AM RHB 0801 - BD DXA TRABECLR BONE SCORE (TBS) / PROCEDURE REASON: Osteopenia of multiple sites M85.89 * * * * Physician Interpretation * * * * EXAMINATION: DXA BONE DENSITOMETRY BD DXA - AXIAL SKELETON, BD DXA TRABECLR BONE SCORE (TBS) PATIENT DEMOGRAPHICS: Age: 54 years, Gender: Male SCANNER INFORMATION: DXA Model: Arimaz C [id number] Date Scanned: 02/03/2025 11:33 AM CLINICAL HISTORY: DIAGNOSTIC Osteopenia of multiple sites . RISK FACTORS FOR OSTEOPOROSIS AND ASSOCIATED FRACTURES REPORTED BY THIS PATIENT: Please refer to Bone Health Questionnaire in the EMR CURRENT THERAPY: Please refer to Bone Health Questionnaire in the EMR TECHNICAL LIMITATIONS: RESULTS: Lumbar spine (L1, L2, L3, L4): 1.121 g/cm2, T-score 0.3, Z-score 0.7 Left Femoral Neck: 0.949 g/cm2, T-score 0.1, Z-score 0.9 Left Total Hip: 1.047 g/cm2, T-score 0.1, Z-score 0.4 Left Forearm, Distal 1/3 of Radius: 0.767 g/cm2, T-score -0.9, Z-score -0.4 No comparison data - the patient has not had a previous bone density in the [facility] or the previous bone density was performed on a different DXA machine (new, updated model or different location) within the [facility]. VERTEBRAL FRACTURE ASSESSMENT Not performed. TRABECULAR BONE ASSESSMENT TBS score: 1.417 Bone micro-architecture: Normal (> 1.310) IMPRESSION: THE LOWEST T-SCORE IS -0.9 IN THE LEFT FOREARM 1) DIAGNOSIS (based on BMD alone): NORMAL BONE DENSITY - Caution: Medical conditions other than osteoporosis may cause low bone density, such as osteomalacia or renal osteodystrophy. Clinical correlation is necessary. 2) FRACTURE RISK (based on BMD and TBS) - LOW - Caution: Fracture risk may be increased independent of BMD in patients with corticosteroid use, age greater than 65 years, or a history of prior fragility fracture. - FRAX was not calculated: normal bone density RECOMMENDATIONS: Follow-up in 2 years or as clinically indicated. Patients that are taking corticosteroids, are transplant recipients or have hyperparathyroidism should have annual follow-up. Follow-up scans should always be done on the same machine for accurate comparison. FOR MORE INFORMATION ABOUT DIAGNOSIS AND TREATMENT: [facility] Center for Osteoporosis and Metabolic Bone Disease:? www.ccf.org/arthritis/oste o National Osteoporosis Foundation:? www.nof.org International Society of Clinical Densitometry www.iscd.org Poker Prop Player: STEPHAN Transcribe Date/Time: Feb 06 2025 6:59A Dictated by : YAMILETH ZAMAN MD This examination was interpreted and the report reviewed and electronically signed by: YAMILETH ZAMAN MD on Feb 06 2025 7:01AM EST [id number] -0.9 [facility] 02-02-2025 CNPN Telephone (FAMPWS) -- TRESA MUÑOZ ([id number]) 1970 M Date Time Provider Department 02/02/25 EDOUARD NOLAND During your visit today, we recorded the following information about you: Michelle Jackson LPN 02/02/2025 2:03 PM Signed Patient Ivonne calling asking when did PCP want to have him do repeat chest xray? Can leave her a message, she works until 8 pm today. Pending order needs diagnosis. Please advise Edouard Noland MD 02/02/2025 4:04 PM Signed Can be done in next few weeks. Michelle Jackson LPN 02/02/2025 4:44 PM Signed Phoned Ivonne and left message with notes from Dr Noland on her voicemail. Order in computer for the chest xray. Allergies As of Date: 02/02/2025 Noted Allergy Reaction AMOXIL (AMOXICILLIN) 11/16/2014 2 - Rash ANIMAL DANDER 03/06/2012 5 - Intolerance Comments: nasal congestion KETOCONAZOLE 01/02/2023 2 - Rash Comments: blisters Date Reviewed: 09/01/2024 Reviewed by: Porsha Acharya LPN - Fully Assessed Reason for Visit: Patient Question [6567] Primary Visit Diagnosis:Bacterial pneumonia [J15.9] Order(s):XR CHEST 2V FRONTAL/LAT [[id number]] Order #: [id number] FUTURE Prescriptions as of 02/02/2025 - Blood-Glucose Sensor (FREESTYLE WYATT 3 PLUS SENSOR) benjy Apply new sensor every fourteen (14) days to upper arm. - Blood-Glucose Meter,Continuous (FREESTYLE WYATT 3 READER) [facility] Use to check blood sugar at least four (4) times daily. - metFORMIN ER (GLUCOPHAGE XR) 500 mg 24 hr tablet Take 3 tablets by mouth once daily. - dulaglutide (TRULICITY) 0.75 mg/0.5 mL pen injector Inject 0.75 mg subcutaneously one time a week. - sildenafil (VIAGRA) 100 mg tablet Take 1 tablet by mouth once daily as needed. Take 30-60 minutes before sexual activity. - CPAP/BIPAP/OTHER biPAP ST 16/11 cmH2O with BUR 12 DME [facility] - gabapentin (NEURONTIN) 300 mg capsule Take 1 capsule after arriving home from work or 1 hour before bedtime. - Blood-Glucose Sensor (FREESTYLE WYATT 3 SENSOR) benjy Apply new sensor every fourteen (14) days to upper arm. - flash glucose sensor (FREESTYLE WYATT 2 SENSOR) kit Apply new sensor every fourteen (14) days to upper arm. - loratadine 10 mg cap Take by mouth. - aspirin, enteric coated (ASPIRIN, ENTERIC COATED) 81 mg EC tablet Take 81 mg by mouth once daily. - Lancets lancets Test blood sugar(s) 1 times daily. Dx: Type 2 DM - Controlled E11.9 Insulin: No - blood sugar diagnostic (BLOOD GLUCOSE TEST) test strip Test blood sugar(s) 1 times daily. Dx: Type 2 DM - Controlled E11.9 Insulin: No Problem List As Of Date 02/02/2025 Noted Resolved Special screening for malignant neoplasms, colo*08/07/2008 Class: Chronic Cervical radiculitis [M54.12] 10/19/2010 Tinnitus, right [H93.11] 10/19/2010 MIKHAIL (obstructive sleep apnea) [G47.33] 04/11/2012 Acute appendicitis with localized peritonitis [*01/18/2016 01/02/2023 Elevated blood pressure reading without diagnos*03/28/2018 Ganglion cyst [M67.40] 03/28/2018 Obesity, Class I, BMI 30-34.9 [E66.811] 03/28/2018 01/12/2025 Vitamin D deficiency [E55.9] 01/02/2023 Diabetes mellitus type 2, controlled, without c*01/02/2023 Central sleep apnea [G47.31] 04/18/2024 Uses bilevel positive airway pressure (BPAP) ve*09/01/2024 Encounter Status:Closed by MICHELLE JACKSON on 02/02/25 [facility] ([id number]) 1970 M Date Time Provider Department 01/28/25 EDOUARD NOLANDWS During your visit today, we recorded the following information about you: Edouard Noland MD 01/28/2025 4:29 PM Signed Saw he did go to ER while I was out. Needs his labs rechecked and keep his follow up. Did they set up appt to see endo because of the hypercalcemia Patti Drew RN 01/28/2025 6:26 PM Signed Called and left a detailed voicemail notifying patient's of providers message. Clinic phone number was left for patient's to call back and answer providers questions. AMIE Mishra Beth, LPN 02/02/2025 2:05 PM Signed Patient Ivonne returned call and went over notes from Dr Noland with understanding. She said no he is not set up with Endocrine as yet. She will get his labs done. He has bone density scheduled for tomorrow. She is hoping to get Endocrine appt set up soon. Edouard Noland MD 02/02/2025 4:18 PM Signed Please get set up Michelle Jackson LPN 02/02/2025 4:46 PM Signed Phoned patient Ivonne left message to return call and ask for food supervisor can assit with scheduling for the Endocrine appt, on her voicemail. Allergies As of Date: 01/28/2025 Noted Allergy Reaction AMOXIL (AMOXICILLIN) 11/16/2014 2 - Rash ANIMAL DANDER 03/06/2012 5 - Intolerance Comments: nasal congestion KETOCONAZOLE 01/02/2023 2 - Rash Comments: blisters Date Reviewed: 09/01/2024 Reviewed by: Porsha Acharya LPN - Fully Assessed Reason for Visit: Results [95] Primary Visit Diagnosis:Hypercalcemia [E83.52] Order(s):PTH RELATED PEPTIDE [SQPTHPEP] Order #: [id number] FUTURE VITAMIN D 25 HYDROXY [SQVITD] Order #: [id number] FUTURE VITAMIN D1 25-DIHYDR [EOVKM425] Order #: [id number] FUTURE BASIC METABOLIC PANEL [SQBMP] Order #: [id number] FUTURE Prescriptions as of 02/03/2025 - Blood-Glucose Sensor (FREESTYLE WYATT 3 PLUS SENSOR) benjy Apply new sensor every fourteen (14) days to upper arm. - Blood-Glucose Meter,Continuous (FREESTYLE WYATT 3 READER) [facility] Use to check blood sugar at least four (4) times daily. - metFORMIN ER (GLUCOPHAGE XR) 500 mg 24 hr tablet Take 3 tablets by mouth once daily. - dulaglutide (TRULICITY) 0.75 mg/0.5 mL pen injector Inject 0.75 mg subcutaneously one time a week. - sildenafil (VIAGRA) 100 mg tablet Take 1 tablet by mouth once daily as needed. Take 30-60 minutes before sexual activity. - CPAP/BIPAP/OTHER biPAP ST 16/11 cmH2O with BUR 12 DME [facility] - gabapentin (NEURONTIN) 300 mg capsule Take 1 capsule after arriving home from work or 1 hour before bedtime. - Blood-Glucose Sensor (FREESTYLE WYATT 3 SENSOR) benjy Apply new sensor every fourteen (14) days to upper arm. - flash glucose sensor (FREESTYLE WYATT 2 SENSOR) kit Apply new sensor every fourteen (14) days to upper arm. - loratadine 10 mg cap Take by mouth. - aspirin, enteric coated (ASPIRIN, ENTERIC COATED) 81 mg EC tablet Take 81 mg by mouth once daily. - Lancets lancets Test blood sugar(s) 1 times daily. Dx: Type 2 DM - Controlled E11.9 Insulin: No - blood sugar diagnostic (BLOOD GLUCOSE TEST) test strip Test blood sugar(s) 1 times daily. Dx: Type 2 DM - Controlled E11.9 Insulin: No Problem List As Of Date 01/28/2025 Noted Resolved Special screening for malignant neoplasms, colo*08/07/2008 Class: Chronic Cervical radiculitis [M54.12] 10/19/2010 Tinnitus, right [H93.11] 10/19/2010 MIKHAIL (obstructive sleep apnea) [G47.33] 04/11/2012 Acute appendicitis with localized peritonitis [*01/18/2016 01/02/2023 Elevated blood pressure reading without diagnos*03/28/2018 Ganglion cyst [M67.40] 03/28/2018 Obesity, Class I, BMI 30-34.9 [E66.811] 03/28/2018 01/12/2025 Vitamin D deficiency [E55.9] 01/02/2023 Diabetes mellitus type 2, controlled, without c*01/02/2023 Central sleep apnea [G47.31] 04/18/2024 Uses bilevel positive airway pressure (BPAP) ve*09/01/2024 Encounter Status:Closed by KEIRA LOOMIS on 02/03/25 Normal [facility] Emergency Department Summary on 01-22-2025 Emergency Department Summary [facility] Medical Records Department [address] [place] [address] Emergency Department Summary 01/22/25 MR#: [id number] Acct: [id number] Name: TRESA MUÑOZ Rep #: [id number] : 1970 54 From: Elliot Caceres DO PCP: Dr. Edouard Noland MD Status:DEP ER Location: ED HPI History of Present Illness Chief Complaint: Chest Pain Informant: patient and spouse/S.O. Narrative Narrative: Patient is a 54-year-old male with type 2 diabetes currently on Trulicity and metformin. He states he has been following with his family doctor because he has been having bouts of abdominal discomfort mainly in the right upper quadrant. He states outpatient labs have shown mild hypercalcemia and he is also had a gallbladder ultrasound recently secondary to his recurrent symptoms. He states this evening however he did have more midsternal chest discomfort and as this was different from the other symptoms he has had there was concerned this could be cardiac and he presents for evaluation. Patient also reports he has had mild cough that has been recurrent over the past few weeks to month but denies any history of lung disease such as COPD emphysema smoking or vaping. [facility] Medical History (Updated 01/25/25 @ 02:[address] Elliot Caceres DO) COVID Diabetes GERD (gastroesophageal reflux disease) Home Medications ???Medication ???Instructions ???Recorded ???Last Taken ???Type aspirin 81 mg tablet,delayed 81 mg PO DAILY 01/21/25 Unknown Hi story release (Adult Aspirin Regimen) dulaglutide 0.75 mg/0.5 mL 0.75 mg subcut [place]OU[place] 01/21/25 Unknown History subcutaneous pen injector (Trulicity) gabapentin 300 mg capsule 300 mg PO DAILY 01/21/25 Unknown H istory loratadine 10 mg tablet 10 mg PO DAILY 01/21/25 Unknown Hi story (Allerclear) metformin 500 mg tablet,extended 1,000 mg PO BID 01/21/25 Unknown H istory release 24 hr Allergy/AdvReac Type Severity Reaction Status Date / Time Penicillins (PCN) Allergy Rash Verified 01/21/25 22:20 Social History Smoking Status: Never smoker ROS ROS ED Constitutional Constitutional ED: Denies chills or fever(s) ENT ENT ED: Denies sore throat Cardiovascular Cardiovascular: Reports chest pain; Denies palpitations or racing heartbeat Respiratory/Chest Respiratory/Chest: Reports cough; Denies dyspnea Gastrointestinal Gastrointestinal: Denies abdominal pain, diarrhea, nausea or vomiting Genitourinary Genitourinary ED: Denies dysuria Musculoskeletal Musculoskeletal: Denies back pain or myalgias Integumentary Denies rash Neurologic Neurologic: Denies headache(s) Hematologic/Lymphatic Hematologic/Lymphatic: Denies easy bleeding or easy bruising EXAM Physical Exam Const Vital Signs: 01/21/25 22:19 01/21/25 22:22 01/21/25 22:35 Temperature 98.6 F Temperature Source Oral Pulse Rate 92 Respiratory Rate 16 Respiratory Effort Normal Non-Labored Blood Pressure 161/72 H Blood Pressure Mean 101 Pulse Ox 100 99 Oxygen Delivery Method Room Air Room Air 01/21/25 23:19 01/22/25 00:00 Temperature Temperature Source Pulse Rate 95 88 Respiratory Rate 16 16 Respiratory Effort Blood Pressure 121/95 H 132/87 H Blood Pressure Mean 103 102 Pulse Ox 98 98 Oxygen Delivery Method Room Air Room Air Positive well nourished and well developed General Appearance ED: well developed; Negative for pallor HEENT HEENT Narrative: Normocephalic atraumatic No tongue or lip swelling no oral lesions no airway edema or compromise No secondary findings in the posterior pharynx to suggest infection Eyes PERRL and EOMs intact bilaterally General Eye ED: Negative for scleral icterus Neck supple and no JVD Neck Narrative: No nuchal rigidity or meningeal signs Chest Wall Chest Narrative: There is mild reproducible chest wall pain along the costal joints with palpation but no bony deformity or crepitance Resp normal respiratory effort Resp Narrative: Patient has faint rhonchi in the bilateral lower lobes without nasal flaring retractions tachypnea or accessory muscle use Cardio regular rate and regular rhythm Rate: other Other Details: Heart is regular rate and rhythm Radial and carotid pulses are equal and symmetric GI normal to inspection, nondistended, normoactive bowel sounds, non-tender, non-distended and no masses GI Narrative: No voluntary guarding or rigidity or pulsatile mass Auscultation: normoactive bowel sounds Palpation: soft Back/Spine no CVA tenderness Extremity normal to inspection Extremity Narrative: Negative Homans' sign bilaterally Neuro oriented x3, CN's II-XII intact bilaterally and no sensory deficits noted Sensorium / Orientation: alert Motor Exam: strength 5/5 throughout (more content not included)... Normal [facility] L499.0042on 01-22-2025 Trop T High Sen 16 ng/L Normal <=22 [facility] Comment on above: Performed By: #### L 499.0042 #### [facility] [address] [facility] [place], [address] L499.0043on 01-22-2025 Trop T High Sen Normal <=22 [facility] Comment on above: Result Comment: Adithya mcdermott via OM: Ordered Performed By: #### L 499.0043 #### [facility] [address] [facility] [place], [address] Troponin T.cardiac [Mass/vol ume] in Serum or Plasma by High sensitivity methodOrdered By: Elliot Caceres on 01-22-2025 Troponin T.cardiac High sensitivity method [Mass/Vol] 16 ng/L <22 [facility] Absolute lymphocyte countOrd ered By: Elliot Caceres on 01-21-2025 Lymphocytes Auto (Unsp spec) [#/Vol] 0.69 10*3/uL Low 0.83-4.51 [facility] Absolute neutrophil countOrd ered By: Elliot Caceres on 01-21-2025 Neutrophils (Bld) [#/Vol] 2.5 10*3/uL 2.0-7.7 [facility] Anion gap in Serum or Plasma Ordered By: Elliot Caceres on 01-21-2025 Anion gap [Moles/Vol] 14 mmol/L 5- [facility] Automated lymphocyte count a s percentage of total leukocytesOrdered By: Elliot Caceres on 01-21-2025 Lymphocytes/100 WBC Auto (Unsp spec) 16.9 % Low 19-41 [facility] BUN/creatinine ratioOrdered By: Elliot Caceres on 01-21-2025 Urea nitrogen/Creatinine [Mass ratio] 15.7 mg/mg 10- [facility] Basic Metabolic Profile (BMP )on 01-21-2025 BUN/CRE 15.7 RATIO Normal - [facility] Comment on above: Performed By: #### L 500.2500, L501.4021, L100.0100 #### [facility] [address] [place], [address] Calcium [Mass/Vol] 12.5 mg/dL High 7.6-11.0 [facility] Comment on above: Performed By: #### L 500.2500, L501.4021, L100.0100 #### [facility] [address] [place], [address] Chloride [Moles/Vol] 101 mmol/L Normal 98-108 [facility] Comment on above: Performed By: #### L 500.2500, L501.4021, L100.0100 #### [facility] [address] [place], [address] CO2 [Moles/Vol] 23.3 mmol/L Normal 21.0-32.0 [facility] Comment on above: Performed By: #### L 500.2500, L501.4021, L100.0100 #### [facility] [address] [place], [address] Creatinine [Mass/Vol] 1.41 mg/dL High 0.70-1.20 [facility] Comment on above: Performed By: #### L 500.2500, L501.4021, L100.0100 #### [facility] [address] [place], [address] ECRCL 71.25 ml/min Normal 50-250 [facility] Comment on above: Performed By: #### L 500.2500, L501.4021, L100.0100 #### [facility] [address] [place], [address] GAP 14 Normal 5-15 [facility] Comment on above: Performed By: #### L 500.2500, L501.4021, L100.0100 #### [facility] [address] [place], [address] GFR/1.73 sq M.predicted among non-blacks MDRD (S/P/Bld) [Vol rate/Area] 60 mL/min/{1.73_m2} Normal >60 [facility] Comment on above: Result Comment: mL/m in/1.73m2 CKD-EPI Creatinine Equation (2020) Performed By: #### L 500.2500, L501.4021, L100.0100 #### [facility] [address] [place], [address] Glucose [Mass/Vol] 127 mg/dL High 70-99 [facility] Comment on above: Performed By: #### L 500.2500, L501.4021, L100.0100 #### [facility] [address] [place], [address] Potassium [Moles/Vol] 4.1 mmol/L Normal 3.3-5.1 [facility] Comment on above: Performed By: #### L 500.2500, L501.4021, L100.0100 #### [facility] [address] [place], [address] Sodium [Moles/Vol] 138 mmol/L Normal 133-145 [facility] Comment on above: Performed By: #### L 500.2500, L501.4021, L100.0100 #### [facility] [address] [place], [address] Urea nitrogen [Mass/Vol] 22 mg/dL High 4-19 [facility] Comment on above: Performed By: #### L 500.2500, L501.4021, L100.0100 #### [facility] [address] [place], [address] Basophil percentageOrdered B y: Elliot Caceres on 01-21-2024 Basophils/100 WBC (Bld) 0.7 % 0-1 [facility] CBC W/Diff, Automatedon 12-29 Absolute Lymph 0.69 X10 3/uL Low 0.83-4.51 [facility] Comment on above: Performed By: #### L 500.2500, L501.4021, L100.0100 #### [facility] [address] [place], [address] Absolute Neut 2.5 X10 3/uL Normal 2.0-7.7 [facility] Comment on above: Performed By: #### L 500.2500, L501.4021, L100.0100 #### [facility] [address] [place], [address] Basophils/100 WBC (Bld) 0.7 % Normal 0-1 [facility] Comment on above: Performed By: #### L 500.2500, L501.4021, L100.0100 #### [facility] [address] [place], [address] Eosinophils/100 WBC (Bld) 5.9 % High 0-5 [facility] Comment on above: Performed By: #### L 500.2500, L501.4021, L100.0100 #### [facility] [address] [place], [address] Erythrocyte distribution width (RBC) [Ratio] 13.0 % Normal 11.6-14.6 [facility] Comment on above: Performed By: #### L 500.2500, L501.4021, L100.0100 #### [facility] [address] [place], [address] Hematocrit (Bld) [Volume fraction] 37.5 % Low 40-54 [facility] Comment on above: Performed By: #### L 500.2500, L501.4021, L100.0100 #### [facility] [address] [place], [address] Hemoglobin (Bld) [Mass/Vol] 13.2 g/dL Normal 13.0-16.5 [facility] Comment on above: Performed By: #### L 500.2500, L501.4021, L100.0100 #### [facility] [address] [place], [address] IG% 0.500 Normal 0.0-0.9 [facility] Comment on above: Result Comment: IG% - Immature Granulocytes (promyelocytes, myelocytes and metamyelocytes) > 1% indicates that a LEFT SHIFT is Present. Performed By: #### L 500.2500, L501.4021, L100.0100 #### [facility] [address] [place], [address] Lymphocytes/100 WBC (Bld) 16.9 % Low 19-41 [facility] Comment on above: Performed By: #### L 500.2500, L501.4021, L100.0100 #### [facility] [address] [place], [address] MCH (RBC) [Entitic mass] 27.7 pg Normal 27.0-32.0 [facility] Comment on above: Performed By: #### L 500.2500, L501.4021, L100.0100 #### [facility] [address] [place], [address] MCHC (RBC) [Mass/Vol] 35.2 g/dL Normal 32-36 [facility] Comment on above: Performed By: #### L 500.2500, L501.4021, L100.0100 #### [facility] [address] [place], [address] MCV (RBC) [Entitic vol] 78.8 fL Low 80-94 [facility] Comment on above: Performed By: #### L 500.2500, L501.4021, L100.0100 #### [facility] [address] [place], [address] Monocytes/100 WBC (Bld) 14.0 % High 0-10 [facility] Comment on above: Performed By: #### L 500.2500, L501.4021, L100.0100 #### [facility] [address] [place], [address] Neutrophils/100 WBC (Bld) 62.0 % Normal 47-70 [facility] Comment on above: Performed By: #### L 500.2500, L501.4021, L100.0100 #### [facility] [address] [place], [address] Nucleated RBC (Bld) [#/Vol] 0 10*3/uL Normal 0-5 [facility] Comment on above: Performed By: #### L 500.2500, L501.4021, L100.0100 #### [facility] [address] [place], [address] Platelet mean volume (Bld) [Entitic vol] 9.7 fL Normal 6.2-12.0 [facility] Comment on above: Performed By: #### L 500.2500, L501.4021, L100.0100 #### [facility] [address] [place], [address] Platelets (Bld) [#/Vol] 185 10*3/uL Normal 150-450 [facility] Comment on above: Performed By: #### L 500.2500, L501.4021, L100.0100 #### [facility] [address] [place], [address] RBC (Bld) [#/Vol] 4.76 10*6/uL Normal 4.6-6.2 [facility] Comment on above: Performed By: #### L 500.2500, L501.4021, L100.0100 #### [facility] [address] [place], [address] RDW SD 36.5 fl Normal 35.1-43.9 [facility] Comment on above: Performed By: #### L 500.2500, L501.4021, L100.0100 #### [facility] [address] [place], [address] WBC (Bld) [#/Vol] 4.1 10*3/uL Low 4.4-11.0 [facility] Comment on above: Performed By: #### L 500.2500, L501.4021, L100.0100 #### [facility] [address] [place], [address] Carbon dioxide, total [Moles /volume] in Central venous bloodOrdered By: Elliot Caceres on 01-21-2025 CO2 [Moles/Vol] 23.3 mmol/L 21.0-32.0 [facility] Chest 1 Viewon 01-21-2025 Chest 1 View [facility] Imaging Services [address] [place] [address] Chest 1 View MR#: [id number] Acct: [id number] Name: TRESA MUÑOZ Rep #: [id number] : 1970 M 54 From: Rafi arechiga MD PCP: Dr. Edouard Noland MD Status: [facility] ER Study: Chest 1 View Date of Exam: 01/21/25 Exam# [id number] Ordering Dr: Elliot Caceres DO PROCEDURE: CHEST 1 VIEW 01/21/2025 REASON FOR EXAM: Shortness of breath TECHNIQUE: Frontal view of the chest. COMPARISON: None FINDINGS: Bilateral perihilar infiltrates are seen extending to the lower lobes. There is no demonstrated pleural abnormality. Normal heart and pericardium. Normal mediastinum and felipe. Normal visualized pulmonary arteries. Normal visualized aortic arch and descending thoracic aorta. Normal visualized thoracic spine. Normal visualized ribs, clavicles, and shoulders. There is no demonstrated abnormality of the visualized soft tissue structures of the upper abdomen. RAD/Chest 1 View IMPRESSION: Bilateral perihilar and lower lobe infiltrates. Reading Location: [place] [address] CC: Dr. Edouard Noland MD; Elliot Caceres DO Poker Prop Player: Signed Normal [facility] Chest 1 View (Portable)on Chest 1 View (Portable) [facility] Imaging Services [address] [place] [address] Chest 1 View (Portable) MR#: [id number] Acct: [id number] Name: TRESA MUÑOZ Rep #: [id number] : 1970 M 54 From: Lucero Dixon nd, MD PCP: Dr. Edouard Noland MD Status: [facility] Study: Chest 1 View (Portable) Date of Exam: 01/21/25 Exam# [id number] Ordering Dr: Elliot Caceres DO PROCEDURE: CHEST 1 VIEW (PORTABLE) 01/21/2025 REASON FOR EXAM: CHEST PAIN TECHNIQUE: Frontal view of the chest. COMPARISON: None. FINDINGS: Hardware: None. Heart: The heart size is normal. Lungs: Ill-defined, right mid lung zone opacity. Mild bilateral pulmonary opacities, greatest within the perihilar regions. No pleural effusion or pneumothorax. Bones: The bones are unremarkable. RAD/Chest 1 View (Portable) IMPRESSION: 1. Right midlung zone opacity. Repeat chest radiograph with lateral view recommended. 2. Mild bilateral pulmonary opacities, which may reflect pneumonitis or pneumonia. Reading Location: [id number] CC: Dr. Edouard Noland MD; Elliot Caceres DO Poker Prop Player: Signed Normal [facility] Chloride assayOrdered By: Rosa Caceres on 01-21-2025 Chloride [Moles/Vol] 101 mmol/L 98-108 [facility] Eosinophil percentageOrdered By: Elliot Caceres on 01-21-2025 Eosinophils/100 WBC (Bld) 5.9 % High 0-5 [facility] Erythrocyte distribution wid th ratioOrdered By: Elliot Caceres on 01-21-2025 Erythrocyte distribution width (RBC) [Ratio] 13.0 % 11.6-14.6 [facility] Erythrocyte distribution wid th standard deviationOrdered By: Elliot Caceres on 01-21-2025 Erythrocyte distribution width (RBC) [Ratio] 36.5 fl 35.1-43.9 [facility] Glomerular filtration rate ( GFR) estimation/1.73 sq m using serum, plasma, or whole bOrdered By: Elliot Caceres on 01-21-2025 GFR/1.73 sq M.predicted among non-blacks MDRD (S/P/Bld) [Vol rate/Area] 60 mL/min/{1.73_m2} >60 [facility] Comment on above: mL/min/1.73m2 CKD-EP I Creatinine Equation (2020) Hematocrit Auto (Bld) [Volum e fraction]Ordered By: Elliot Caceres on 01-21-2025 Hematocrit (Bld) [Volume fraction] 37.5 % Low 40-54 [facility] Hemoglobin measurementOrdere d By: Elliot Caceres on 01-21-2025 Hemoglobin (Bld) [Mass/Vol] 13.2 g/dL 13.0-16.5 [facility] Immature granulocytes/100 WB C Auto (Bld)Ordered By: Elliot Caceres on 01-21-2025 Immature granulocytes/100 WBC (Bld) 0.500 % 0.0-0.9 [facility] Comment on above: IG% - Immature Granu locytes (promyelocytes, myelocytes and metamyelocytes) > 1% indicates that a LEFT SHIFT is Present. L501.4021on 01-21-2025 Trop T High Sen 17 ng/L Normal <=22 [facility] Comment on above: Performed By: #### L 500.2500, L501.4021, L100.0100 #### [facility] [address] [place], [address] MCV (mean corpuscular volume ) determinationOrdered By: Elliot Caceres on 01-21-2025 MCV (RBC) [Entitic vol] 78.8 fL Low 80-94 [facility] Magnesiumon 01-21-2025 Magnesium [Mass/Vol] 1.7 mg/dL Normal 1.5-2.2 [facility] Comment on above: Performed By: #### L 501.5200 #### [facility] [address] [facility] [place], [place], [address] Magnesium measurement (mass/ volume)Ordered By: Elliot Caceres on 01-21-2025 Magnesium (Unsp spec) [Mass/Vol] 1.7 mg/dL 1.5-2.2 [facility] Mean corpuscular hemoglobin (MCH) determinationOrdered By: Elliot Caceres on 01-21-2025 MCH (RBC) [Entitic mass] 27.7 pg 27.0-32.0 [facility] Mean corpuscular hemoglobin concentration (MCHC) determinationOrdered By: Elliot Caceres on 01-21-2025 MCHC (RBC) [Mass/Vol] 35.2 g/dL 32-36 [facility] Mean platelet volume determi nationOrdered By: Elliot Caceres on 01-21-2025 Platelet mean volume (Bld) [Entitic vol] 9.7 fL 6.2-12.0 [facility] Monocyte percentageOrdered B y: Elliot Caceres on 01-21-2025 Monocytes/100 WBC (Bld) 14.0 % High 0-10 [facility] Neutrophil percentageOrdered By: Elliot Caceres on 01-21-2025 Neutrophils/100 WBC (Bld) 62.0 % 47-70 [facility] Nucleated red blood cell per centageOrdered By: Elliot Caceres on 01-21-2025 Nucleated RBC/100 WBC (Bld) [Ratio] 0 % 0-5 [facility] Platelet countOrdered By: Rosa Caceres on 01-21-2025 Platelets (Bld) [#/Vol] 185 10*3/uL 150-450 [facility] Potassium measurement (mass/ volume)Ordered By: Elliot Caceres on 01-21-2025 Potassium (Unsp spec) [Mass/Vol] 4.1 mmol/L 3.3-5.1 [facility] RBC Auto (Bld) [#/Vol]Ordere d By: Elliot Caceres on 01-21-2025 RBC (Bld) [#/Vol] 4.76 10*6/uL 4.6-6.2 [facility] Serum creatinine measurement (mass/volume)Ordered By: Elliot Caceres on 01-21-2025 Creatinine [Mass/Vol] 1.41 mg/dL High 0.70-1.20 [facility] Serum glucose measurement (m ass/volume)Ordered By: Elliot Caceres on 01-21-2025 Glucose [Mass/Vol] 127 mg/dL High 70-99 [facility] Serum or plasma calcium jamaal urement (mass/volume)Ordered By: Elliot Caceres on 01-21-2025 Calcium [Mass/Vol] 12.5 mg/dL High 7.6-11.0 [facility] Serum or plasma urea nitroge n measurement (mass/volume)Ordered By: Elliot Caceres on 01-21-2025 Urea nitrogen [Mass/Vol] 22 mg/dL High 4-19 [facility] Sodium levelOrdered By: Jhony Caceres on 01-21-2025 Sodium [Moles/Vol] 138 mmol/L 133-145 [facility] Troponin T.cardiac [Mass/vol ume] in Serum or Plasma by High sensitivity methodOrdered By: Elliot Caceres on 01-21-2025 Troponin T.cardiac High sensitivity method [Mass/Vol] 17 ng/L <22 [facility] White blood cell (WBC) count Ordered By: Elliot Caceres on 01-21-2025 WBC (Bld) [#/Vol] 4.1 10*3/uL Low 4.4-11.0 [facility] US ABD RIGHT UPPER QUADRANTo n 01-19-2025 US ABD RIGHT UPPER QUADRANT * * *Final Report* * * DATE OF EXAM: Jan 19 2025 10:41AM [facility] 1032 - US ABD RIGHT UPPER QUADRANT / PROCEDURE REASON: Elevated liver enzymes * * * * Physician Interpretation * * * * EXAMINATION: RIGHT UPPER QUADRANT AND SPLEEN ULTRASOUND HISTORY: Elevated liver enzymes . TECHNIQUE: Sonography of the right upper quadrant and spleen was performed. Images were obtained and stored in a permanent archive. MQ: URUQ_2 COMPARISON: None. RESULT: Pancreas: Normal sonographic appearance. Portions obscured: Tail and portions of body Liver: Echotexture: Normal, homogeneous. Echogenicity: Diffusely increased Surface contour: Smooth Lesions: none Main portal vein is patent with normal flow direction. Biliary: No intrahepatic biliary duct dilation. CBD: 0.5 cm at the hilum. Gallbladder: Normal caliber -Contents: No cholelithiasis -Wall: Normal -Other: No pericholecystic fluid. Sonographic Crawford sign was reported negative. Right Kidney: No hydronephrosis. 2.2 cm benign-appearing cyst. Ascites: None. Spleen: The craniocaudal length of the spleen is 16.3 cm , enlarged. There are no splenic lesions. Left Kidney: No hydronephrosis. - IMPRESSION: Hepatic steatosis. Splenomegaly. Poker Prop Player: STEPHAN Transcribe Date/Time: Jan 21 2025 7:21A Dictated by : BLAYNE AMBROSIO MD This examination was interpreted and the report reviewed and electronically signed by: BLAYNE AMBROSIO MD on Jan 21 2025 7:22AM EST [id number] Normal [facility] US ABD SPLEEN -NBon 01-20-20 US ABD SPLEEN -NB * * *Final Report* * * DATE OF EXAM: Jan 19 2025 10:41AM [facility] 1232 - US ABD SPLEEN -NB / PROCEDURE REASON: Elevated liver enzymes * * * * Physician Interpretation * * * * EXAMINATION: RIGHT UPPER QUADRANT AND SPLEEN ULTRASOUND HISTORY: Elevated liver enzymes . TECHNIQUE: Sonography of the right upper quadrant and spleen was performed. Images were obtained and stored in a permanent archive. MQ: URUQ_2 COMPARISON: None. RESULT: Pancreas: Normal sonographic appearance. Portions obscured: Tail and portions of body Liver: Echotexture: Normal, homogeneous. Echogenicity: Diffusely increased Surface contour: Smooth Lesions: none Main portal vein is patent with normal flow direction. Biliary: No intrahepatic biliary duct dilation. CBD: 0.5 cm at the hilum. Gallbladder: Normal caliber -Contents: No cholelithiasis -Wall: Normal -Other: No pericholecystic fluid. Sonographic Crawford sign was reported negative. Right Kidney: No hydronephrosis. 2.2 cm benign-appearing cyst. Ascites: None. Spleen: The craniocaudal length of the spleen is 16.3 cm , enlarged. There are no splenic lesions. Left Kidney: No hydronephrosis. - IMPRESSION: Hepatic steatosis. Splenomegaly. Poker Prop Player: STEPHAN Transcribe Date/Time: Jan 21 2025 7:21A Dictated by : BLAYNE AMBROSIO MD This examination was interpreted and the report reviewed and electronically signed by: BLAYNE AMBROSIO MD on Jan 21 2025 7:22AM EST [id number] Normal [facility]20[facility] -- TRESA MUÑOZ ([id number]) 1970 M Date Time Provider Department 01/16/25 EDOUARD NOLAND [facility] During your visit today, we recorded the following information about you: Edouard Noland MD 01/16/2025 9:15 AM Signed See below. He did not read the my chart. We are still waiting on his pthrp but it takes a while. His vit d is high and liver alk phos is up. Needs liver us also. Make sure has follow up with one of when back in [facility]. I am still waiting on all your labs. If you feels worse, please go to Er in [place]. Follow up with one of us when you return. Your one vit d test is high. Again, I would stop all supplements. I am hoping they are the culprit and driving your calcium and vit d too high which in turn is dehydrating you. We will contact you when we get all the labs back. Leonie Zheng LPN 01/16/2025 12:28 PM Signed Spoke with patient is feeling overall ok. Couple of rough days but doing ok now. They are currently stuck in [place] with their van broken down. Will call when they get home to schedule. Allergies As of Date: 01/16/2025 Noted Allergy Reaction AMOXIL (AMOXICILLIN) 11/16/2014 2 - Rash ANIMAL DANDER 03/06/2012 5 - Intolerance Comments: nasal congestion KETOCONAZOLE 01/02/2023 2 - Rash Comments: blisters Date Reviewed: 09/01/2024 Reviewed by: Porsha Acharya LPN - Fully Assessed Reason for Visit: Results [95] Primary Visit Diagnosis:Elevated liver enzymes [R74.8] Order(s):[facility] RIGHT UPPER QUADRANT [[id number]] Order #: [id number] FUTURE Prescriptions as of 01/16/2025 - multivitamin tablet Take 1 tablet by mouth once daily. - APPLE CIDER VINEGAR ORAL Take 600 mg by mouth. - OTC NUTRITIONAL SUPPLEMENT Sodium bytyrate - dulaglutide (TRULICITY) 0.75 mg/0.5 mL pen injector Inject 0.75 mg subcutaneously one time a week. - sildenafil (VIAGRA) 100 mg tablet Take 1 tablet by mouth once daily as needed. Take 30-60 minutes before sexual activity. - CPAP/BIPAP/OTHER biPAP ST 16/11 cmH2O with BUR 12 [facility] - gabapentin (NEURONTIN) 300 mg capsule Take 1 capsule after arriving home from work or 1 hour before bedtime. - dihydroberberine (BERBERINE ES-5 ORAL) Take 1 tablet by mouth once daily. - Blood-Glucose Sensor (FREESTYLE WYATT 3 SENSOR) benjy Apply new sensor every fourteen (14) days to upper arm. - flash glucose sensor (FREESTYLE WYATT 2 SENSOR) kit Apply new sensor every fourteen (14) days to upper arm. - lutein-zeaxanthin 25-5 mg cap Take 1 capsule by mouth once daily. - turmeric 400 mg cap Take 1 capsule by mouth once daily. - loratadine 10 mg cap Take by mouth. - aspirin, enteric coated (ASPIRIN, ENTERIC COATED) 81 mg EC tablet Take 81 mg by mouth once daily. - MAGNESIUM ORAL Take 400 mg by mouth. - cholecalciferol, vitamin D3, (VITAMIN D3 ORAL) Take 2,000 Units by mouth. - ZINC ORAL Take 50 mg by mouth. - CINNAMON With berberine - Lancets lancets Test blood sugar(s) 1 times daily. Dx: Type 2 DM - Controlled E11.9 Insulin: No - blood sugar diagnostic (BLOOD GLUCOSE TEST) test strip Test blood sugar(s) 1 times daily. Dx: Type 2 DM - Controlled E11.9 Insulin: No Problem List As Of Date 01/16/2025 Noted Resolved Special screening for malignant neoplasms, colo*08/07/2008 Class: Chronic Cervical radiculitis [M54.12] 10/19/2010 Tinnitus, right [H93.11] 10/19/2010 MIKHAIL (obstructive sleep apnea) [G47.33] 04/11/2012 Acute appendicitis with localized peritonitis [*01/18/2016 01/02/2023 Elevated blood pressure reading without diagnos*03/28/2018 Ganglion cyst [M67.40] 03/28/2018 Obesity, Class I, BMI 30-34.9 [E66.811] 03/28/2018 01/12/2025 Vitamin D deficiency [E55.9] 01/02/2023 Diabetes mellitus type 2, controlled, without c*01/02/2023 Central sleep apnea [G47.31] 04/18/2024 Uses bilevel positive airway pressure (BPAP) ve*09/01/2024 Encounter Status:Closed by LEONIE ZHENG on 01/16/25 Normal [facility] 1,25-dihydroxyvitamin D3 [Ma ss/Vol]on 01-13-2025 1,25 Dihydroxy Vitamin Total 92.8 pg/mL High 19.9 - 79.3 pg/mL [facility] Interpretation and review of laboratory results Abnormal [facility] VIT D1,25 DIHYDROXY 92.8 pg/mL High 19.9-79.3 [facility] Comment on above: Order Comment: Speci men Type: BLOOD SPECIMENOrdering Facility: [facility] Address: [address] [place] [address] [place] [address] Performed By: #### 1 649-3 ####[facility] LABCLIA [id number] [place] [address] [place] ALKALINE PHOSPHATASE ISOENZY MES (P)on 01-13-2025 ALK PHOS BONE % 30.4 % Normal 10.7-68.3 [facility] Comment on above: Order Comment: Speci men Type: BLOOD SPECIMENOrdering Facility: [facility] Address: [address] [place] [address] Performed By: #### A LKISOP ####[facility] LABIA [id number] [place] [address] [place] ALK PHOS LIVER % 58.2 % Normal 26.0-86.2 [facility] Comment on above: Order Comment: Speci men Type: BLOOD SPECIMENOrdering Facility: [facility] Address: [address] [place] [address] Performed By: #### A LKISOP ####[facility] LABIA [id number] [place] [address] [place] BONE FRACTION 42.3 U/L Normal 12.9-52.6 [facility] Comment on above: Order Comment: Speci men Type: BLOOD SPECIMENOrdering Facility: [facility] Address: [address] [place] [address] Performed By: #### A LKISOP ####[facility] LABIA [id number] [place] [address] [place] INTESTINE FRACTION 16.0 U/L Normal 0.0-16.3 [facility] Comment on above: Order Comment: Speci men Type: BLOOD SPECIMENOrdering Facility: [facility] Address: [address] [place] [address] Performed By: #### A LKISOP ####[facility] LABIA [id number] [place] [address] [place] LIVER FRACTION 80.9 U/L High 16.0-69.3 [facility] Comment on above: Order Comment: Speci men Type: BLOOD SPECIMENOrdering Facility: [facility] Address: [address] [place] [address] Performed By: #### A LKISOP ####[facility] LABCLIA [id number] [place] [address] [place] Neutrophils/100 WBC (Bld) 11.5 % Normal 0.0-24.2 [facility] Comment on above: Order Comment: Speci men Type: BLOOD SPECIMENOrdering Facility: [facility] Address: [address] [place] [address] Performed By: #### A LKISOP ####[facility] LABCLIA [id number] [place] [address] [place] ALP SerPl-cCncon 01-13-2025 ALP [Catalytic activity/Vol] 139 U/L High 38-113 [facility] Comment on above: Order Comment: Speci men Type: BLOOD SPECIMENOrdering Facility: [facility] Address: [address] [place] [address] Performed By: #### 2 4321-2, 6768-6 ####[facility] LABIA [id number] [place] [address] [place] Basic metabolic 2000 panelon 01-13-2025 Anion gap [Moles/Vol] 12 mmol/L 8 - 15 mmol/L [facility] Calcium [Mass/Vol] 11.5 mg/dL High 8.5 - 10. 2 mg/dL [facility] Chloride [Moles/Vol] 101 mmol/L 98 - 10 7 mmol/L [facility] CO2 [Moles/Vol] 25 mmol/L 22 - 30 mmol/L [facility] Creatinine [Mass/Vol] 1.55 mg/dL High 0.73 - 1.22 mg/dL [facility] GFR/1.73 sq M.predicted among non-blacks MDRD (S/P/Bld) [Vol rate/Area] 54 mL/min/{1.73_m2} Low - PINF [facility] Comment on above: Estimated Glomerular Filtration Rate (eGFR) is calculated using the 2020 CKD-EPI creatinine equation. This equation utilizes serum creatinine, sex, and age as parameters. The creatinine assay has traceable calibration to isotope dilution-mass spectrometry. Refer to KDIGO guidelines for clinical interpretation. In patients with unstable renal function, e.g. those with acute kidney injury, the eGFR may not accurately reflect actual GFR. Glucose [Mass/Vol] 178 mg/dL High 74 - 99 mg/dL [facility] Comment on above: The [place] Diabete s Association (ADA) provides guidance for cutoff values for fasting glucose and random glucose. The ADA defines fasting as no caloric intake for at least 8 hours. Fasting plasma glucose results between 100 to 125 mg/dL indicate increased risk for diabetes (prediabetes). Fasting plasma glucose results greater than or equal to 126 mg/dL meet the criteria for diagnosis of diabetes. In the absence of unequivocal hyperglycemia, results should be confirmed by repeat testing. In a patient with classic symptoms of hyperglycemia or hyperglycemic crisis, random plasma glucose results greater than or equal to 200 mg/dL meet the criteria for diagnosis of diabetes. Reference: Standards of Medical Care in Diabetes 2016, [place] Diabetes Association. Diabetes Care. 2016.39(Suppl 1). Interpretation and review of laboratory results Abnormal [facility] Potassium [Moles/Vol] 4 mmol/L 3.7 - 5.1 mmol/L [facility] Sodium [Moles/Vol] 138 mmol/L 136 - 144 mmol/L [facility] Urea nitrogen [Mass/Vol] 31 mg/dL High 9 - 24 mg/dL [facility] Anion gap [Moles/Vol] 12 mmol/L Normal 8-15 [facility] Comment on above: Order Comment: Speci men Type: BLOOD SPECIMENOrdering Facility: [facility] Address: [address] [place] [address] Performed By: #### 2 4321-2, 6768-6 ####[facility] LABCLIA [id number] [place] [address] [place] Calcium [Mass/Vol] 11.5 mg/dL High 8.5-10.2 [facility] Comment on above: Order Comment: Speci men Type: BLOOD SPECIMENOrdering Facility: [facility] Address: [address] [place], [place] [address] Performed By: #### 2 4321-2, 68-6 ####[facility] LABCLIA [id number] [place] [id number] [place] Chloride [Moles/Vol] 101 mmol/L Normal 98-107 [facility] Comment on above: Order Comment: Speci men Type: BLOOD SPECIMENOrdering Facility: [facility] Address: [address] [place] [address] Performed By: #### 2 4321-2, 68-6 ####[facility] LABCLIA [id number] [place] [address] [place] CO2 [Moles/Vol] 25 mmol/L Normal 22-30 [facility] Comment on above: Order Comment: Speci men Type: BLOOD SPECIMENOrdering Facility: [facility] Address: [address] [place] [address] Performed By: #### 2 4321-2, 68-6 ####[facility] LABCLIA [id number] [place] [address] [place] Creatinine [Mass/Vol] 1.55 mg/dL High 0.73-1.22 [facility] Comment on above: Order Comment: Speci men Type: BLOOD SPECIMENOrdering Facility: [facility] Address: [address] [place] [address] Performed By: #### 2 4321-2, 68-6 ####[facility] LABCLIA [id number] [place] [address] [place] Creatinine and Glomerular filtration rate.predicted panel (S/P/Bld) 54 mL/min/1.73m??? Low >=60 [facility] Comment on above: Order Comment: Speci men Type: BLOOD SPECIMENOrdering Facility: [facility] Address: [address] [place] [address] Result Comment: Lynne mated Glomerular Filtration Rate (eGFR) is calculated using the 2020 CKD-EPI creatinine equation. This equation utilizes serum creatinine, sex, and age as parameters. The creatinine assay has traceable calibration to isotope dilution-mass spectrometry. Refer to KDIGO guidelines for clinical interpretation. In patients with unstable renal function, e.g. those with acute kidney injury, the eGFR may not accurately reflect actual GFR. Performed By: #### 2 4321-2, 6768-6 ####[facility] LABCLIA [id number] [place] [address] [place] Glucose [Mass/Vol] 178 mg/dL High 74-99 [facility] Comment on above: Order Comment: Jhony brunner Type: BLOOD SPECIMENOrdering Facility: [facility] Address: [address] [place] [address] Result Comment: The [place] Diabetes Association (ADA) provides guidance for cutoff values for fasting glucose and random glucose. The ADA defines fasting as no caloric intake for at least 8 hours. Fasting plasma glucose results between 100 to 125 mg/dL indicate increased risk for diabetes (prediabetes). Fasting plasma glucose results greater than or equal to 126 mg/dL meet the criteria for diagnosis of diabetes. In the absence of unequivocal hyperglycemia, results should be confirmed by repeat testing. In a patient with classic symptoms of hyperglycemia or hyperglycemic crisis, random plasma glucose results greater than or equal to 200 mg/dL meet the criteria for diagnosis of diabetes. Reference: Standards of Medical Care in Diabetes 2016, [place] Diabetes Association. Diabetes Care. 2016.39(Suppl 1). Performed By: #### 2 4321-2, 6768-6 ####[facility] LABIA [id number] [place] [id number] [place] Potassium [Moles/Vol] 4.0 mmol/L Normal 3.7-5.1 [facility] Comment on above: Order Comment: Jhony brunner Type: BLOOD SPECIMENOrdering Facility: [facility] Address: [address] [place] [address] Performed By: #### 2 4321-2, 6768-6 ####[facility] LABIA [id number] [place] [address] [place] Sodium [Moles/Vol] 138 mmol/L Normal 136-144 [facility] Comment on above: Order Comment: Specpretty brunner Type: BLOOD SPECIMENOrdering Facility: [facility] Address: [address] [place] [address] Performed By: #### 2 4321-2, 6768-6 ####[facility] [id number] [place] [address] [place] Urea nitrogen [Mass/Vol] 31 mg/dL High 9-24 [facility] Comment on above: Order Comment: Randalli men Type: BLOOD SPECIMENOrdering Facility: [facility] Address: [address] [place] [address] Performed By: #### 2 4321-2, 6768-6 ####[facility] [id number] [address] OF [facility] CNPNon 01-13-2025 [facility] TRESA MU[facility]Z ([id number]) 1970 Date Time Provider Department 01/13/25 EDOUARD NOLAND [facility] During your visit today, we recorded the following information about you: Allergies As of Date: 01/13/2025 Noted Allergy Reaction AMOXIL (AMOXICILLIN) 11/16/2014 2 - Rash ANIMAL DANDER 03/06/2012 5 - Intolerance Comments: nasal congestion KETOCONAZOLE 01/02/2023 2 - Rash Comments: blisters Date Reviewed: 09/01/2024 Reviewed by: Porsha Acharya LPN - Fully Assessed Reason for Visit: Results [95] Prescriptions as of 01/16/2025 - multivitamin tablet Take 1 tablet by mouth once daily. - APPLE CIDER VINEGAR ORAL Take 600 mg by mouth. - OTC NUTRITIONAL SUPPLEMENT Sodium bytyrate - dulaglutide (TRULICITY) 0.75 mg/0.5 mL pen injector Inject 0.75 mg subcutaneously one time a week. - sildenafil (VIAGRA) 100 mg tablet Take 1 tablet by mouth once daily as needed. Take 30-60 minutes before sexual activity. - CPAP/BIPAP/OTHER biPAP ST 16/11 cmH2O with BUR 12 [facility] - gabapentin (NEURONTIN) 300 mg capsule Take 1 capsule after arriving home from work or 1 hour before bedtime. - dihydroberberine (BERBERINE ES-5 ORAL) Take 1 tablet by mouth once daily. - Blood-Glucose Sensor (FREESTYLE WYATT 3 SENSOR) benjy Apply new sensor every fourteen (14) days to upper arm. - flash glucose sensor (FREESTYLE WYATT 2 SENSOR) kit Apply new sensor every fourteen (14) days to upper arm. - lutein-zeaxanthin 25-5 mg cap Take 1 capsule by mouth once daily. - turmeric 400 mg cap Take 1 capsule by mouth once daily. - loratadine 10 mg cap Take by mouth. - aspirin, enteric coated (ASPIRIN, ENTERIC COATED) 81 mg EC tablet Take 81 mg by mouth once daily. - MAGNESIUM ORAL Take 400 mg by mouth. - cholecalciferol, vitamin D3, (VITAMIN D3 ORAL) Take 2,000 Units by mouth. - ZINC ORAL Take 50 mg by mouth. - CINNAMON With berberine - Lancets lancets Test blood sugar(s) 1 times daily. Dx: Type 2 DM - Controlled E11.9 Insulin: No - blood sugar diagnostic (BLOOD GLUCOSE TEST) test strip Test blood sugar(s) 1 times daily. Dx: Type 2 DM - Controlled E11.9 Insulin: No Problem List As Of Date 01/13/2025 Noted Resolved Special screening for malignant neoplasms, colo*08/07/2008 Class: Chronic Cervical radiculitis [M54.12] 10/19/2010 Tinnitus, right [H93.11] 10/19/2010 MIKHAIL (obstructive sleep apnea) [G47.33] 04/11/2012 Acute appendicitis with localized peritonitis [*01/18/2016 01/02/2023 Elevated blood pressure reading without diagnos*03/28/2018 Ganglion cyst [M67.40] 03/28/2018 Obesity, Class I, BMI 30-34.9 [E66.811] 03/28/2018 01/12/2025 Vitamin D deficiency [E55.9] 01/02/2023 Diabetes mellitus type 2, controlled, without c*01/02/2023 Central sleep apnea [G47.31] 04/18/2024 Uses bilevel positive airway pressure (BPAP) ve*09/01/2024 Encounter Status:Closed by EDOUARD NOLAND on 01/16/25 Normal [facility] Telephone ([facility]AMPWS) -- TRESA MUÑOZ ([id number]) 1970 M Date Time Provider Department 01/13/25 EDOUARD NOLAND [facility] During your visit today, we recorded the following information about you: Edouard Noland MD 01/13/2025 8:16 AM Signed Not all his labs are back, however, his calcium is highly elevated. His alk phos is up slightly. His kidney function is lower. Stop all supplements. They might be contributing. Push fluids. Recheck repeat labs today or tomorrow. We need to follow that calcium very closely. I need to verify it is real, not high enough I have to send him to the er but high enough I need to sort out what Is causing it If having any muscle spasms or severe muscle pain etc, call or ER Patti Drew RN 01/13/2025 9:50 AM Signed Pt's called and is notified of providers results and instructions. She voices understanding.She reports Pt already took his multi-vitamin and Glucerna this morning. Multi-vitamin had 210 mg of Ca and Glucerna had 250 mg Ca. She will have him hold those after today. Information sent to Pt's MyChart per 's request. She said taking his pills with a glass of milk would spike his sugar more than the Glucerna. She is asking if the Pt can still take his Tumeric, Berberine, Apple Cider Vinegar, and Sodium Butyrate as she gives these to him for his BS. She states the PA has not gone through for Trulicity yet. Pt will come in to get his labs done today, as they will be leaving on vacation. Please call and advise. AMIE Mishra William J, MD 01/13/2025 10:02 AM Signed I would hold on any supplements Leonora Smith LPN 01/13/2025 10:40 AM Signed Pt's is asking if they hold all supplements how are they supposed to keep his sugar down because that is what they have been using. --She is asking if the Pt can still take his Tumeric, Berberine, Apple Cider Vinegar, and Sodium Butyrate as she gives these to him for his BS-- Still waiting on PA for Trulicity. ASIF Sanz William J, MD 01/13/2025 10:53 AM Signed Can we see if there is any way we can get assistance for the trulicity. Those herbs may well be contributing to his calcium and likely are not helping his sugar. Leonie Zheng LPN 01/14/2025 9:27 AM Signed Trulicity has been approved. Mailbox is full unable to leave a message for patient. Will send SimuForm message. Allergies As of Date: 01/13/2025 Noted Allergy Reaction AMOXIL (AMOXICILLIN) 11/16/2014 2 - Rash ANIMAL DANDER 03/06/2012 5 - Intolerance Comments: nasal congestion KETOCONAZOLE 01/02/2023 2 - Rash Comments: blisters Date Reviewed: 09/01/2024 Reviewed by: Porsha Acharya LPN - Fully Assessed Reason for Visit: Results [95] Cmt: Abnormal labs. Primary Visit Diagnosis:Hypercalcemia [E83.52] Other Visit Diagnosis:Elevated alkaline phosphatase level [R74.8] Order(s):PTH RELATED PEPTIDE [SQPTHPEP] Order #: [id number] FUTURE VITAMIN D1 25-DIHYDR [TMIAS841] Order #: [id number] FUTURE CALCIUM, IONIZED [SQICA] Order #: [id number] FUTURE ALK PHOS ISOENZYM BL [SQALKISO] Order #: [id number] FUTURE BASIC METABOLIC PANEL [SQBMP] Order #: [id number] FUTURE Prescriptions as of 01/14/2025 - multivitamin tablet Take 1 tablet by mouth once daily. - APPLE CIDER VINEGAR ORAL Take 600 mg by mouth. - OTC NUTRITIONAL SUPPLEMENT Sodium bytyrate - dulaglutide (TRULICITY) 0.75 mg/0.5 mL pen injector Inject 0.75 mg subcutaneously one time a week. - sildenafil (VIAGRA) 100 mg tablet Take 1 tablet by mouth once daily as needed. Take 30-60 minutes before sexual activity. - CPAP/BIPAP/OTHER biPAP ST 16/11 cmH2O with BUR 12 [facility] - gabapentin (NEURONTIN) 300 mg capsule Take 1 capsule after arriving home from work or 1 hour before bedtime. - dihydroberberine (BERBERINE ES-5 ORAL) Take 1 tablet by mouth once daily. - Blood-Glucose Sensor (FREESTYLE WYATT 3 SENSOR) benjy Apply new sensor every fourteen (14) days to upper arm. - flash glucose sensor (FREESTYLE WYATT 2 SENSOR) kit Apply new sensor every fourteen (14) days to upper arm. - lutein-zeaxanthin 25-5 mg cap Take 1 capsule by mouth once daily. - turmeric 400 mg cap Take 1 capsule by mouth once daily. - loratadine 10 mg cap Take by mouth. - aspirin, enteric coated (ASPIRIN, ENTERIC COATED) 81 mg EC tablet Take 81 mg by mouth once daily. - MAGNESIUM ORAL Take 400 mg by mouth. - cholecalciferol, vitamin D3, (VITAMIN D3 ORAL) Take 2,000 Units by mouth. - ZINC ORAL Take 50 mg by mouth. - CINNAMON With berberine - Lancets lancets Test blood sugar(s) 1 times daily. Dx: Type 2 DM - Controlled E11.9 Insulin: No - blood sugar diagnostic (BLOOD GLUCOSE TEST) test strip Test blood sugar(s) 1 times daily. Dx: Type 2 DM - Controlled E11.9 Insulin: No Problem List As Of Date 01/13/2025 Noted Resolved Special screening for m (more content not included)... Normal [facility] Telephone ([facility]) -- RUDY SHELLEYIC ([id number]) 1970 M Date Time Provider Department 01/13/25 EDOUARD NOLAND During your visit today, we recorded the following information about you: Virginia Hurst LPN 01/13/2025 4:04 PM Signed Electronic PA rec'd and completed for dulaglutide (TRULICITY) 0.75 mg/0.5 mL pen injector Virginia Hurst LPN 01/13/2025 4:08 PM Signed rior authorization approved Payer: [employer] [phone] Note from payer: CaseId:[id number];Status:Gideon roved;Review Type:Prior Auth;Coverage Start Date:12/14/2024;Coverage End Date:01/13/2026; Approval Details Authorized from December 14, 2024 to January 13, 2026 Electronic appeal: Not supported View History Pharmacy Benefits Open Encounter TRESA MUÑOZ - [employer] ([employer]) Covered: Retail, Mail Order Unknown: Specialty, Long-Term Care BIN: [id number] : 1970 Group ID: [id number] PCN: [id number] Legal sex: M Group name: [employer] Address: [address] [place], [place] [id number] Medication Being Authorized dulaglutide (TRULICITY) 0.75 mg/0.5 mL pen injector Inject 0.75 mg subcutaneously one time a week. Dispense: 6 mL Refills: 3 Start: 01/12/2025 End: 01/12/2026 Class: Normal Diagnoses: Controlled type 2 diabetes mellitus without complication, without long-term current use of insulin (HCC) This order has been released to its destination. To be filled at: [facility] [address] [place] [id number] - [address] - [phone] Pharmacy notified. Allergies As of Date: 01/13/2025 Noted Allergy Reaction AMOXIL (AMOXICILLIN) 11/16/2014 2 - Rash ANIMAL DANDER 03/06/2012 5 - Intolerance Comments: nasal congestion KETOCONAZOLE 01/02/2023 2 - Rash Comments: blisters Date Reviewed: 09/01/2024 Reviewed by: Porsha Acharya LPN - Fully Assessed Reason for Visit: Insurance Authorization [[id number]] Prescriptions as of 01/13/2025 - multivitamin tablet Take 1 tablet by mouth once daily. - APPLE CIDER VINEGAR ORAL Take 600 mg by mouth. - OTC NUTRITIONAL SUPPLEMENT Sodium bytyrate - dulaglutide (TRULICITY) 0.75 mg/0.5 mL pen injector Inject 0.75 mg subcutaneously one time a week. - sildenafil (VIAGRA) 100 mg tablet Take 1 tablet by mouth once daily as needed. Take 30-60 minutes before sexual activity. - CPAP/BIPAP/OTHER biPAP ST 16/11 cmH2O with BUR 12 DME [facility] - gabapentin (NEURONTIN) 300 mg capsule Take 1 capsule after arriving home from work or 1 hour before bedtime. - dihydroberberine (BERBERINE ES-5 ORAL) Take 1 tablet by mouth once daily. - Blood-Glucose Sensor (FREESTYLE WYATT 3 SENSOR) bnejy Apply new sensor every fourteen (14) days to upper arm. - flash glucose sensor (FREESTYLE WYATT 2 SENSOR) kit Apply new sensor every fourteen (14) days to upper arm. - lutein-zeaxanthin 25-5 mg cap Take 1 capsule by mouth once daily. - turmeric 400 mg cap Take 1 capsule by mouth once daily. - loratadine 10 mg cap Take by mouth. - aspirin, enteric coated (ASPIRIN, ENTERIC COATED) 81 mg EC tablet Take 81 mg by mouth once daily. - MAGNESIUM ORAL Take 400 mg by mouth. - cholecalciferol, vitamin D3, (VITAMIN D3 ORAL) Take 2,000 Units by mouth. - ZINC ORAL Take 50 mg by mouth. - CINNAMON With berberine - Lancets lancets Test blood sugar(s) 1 times daily. Dx: Type 2 DM - Controlled E11.9 Insulin: No - blood sugar diagnostic (BLOOD GLUCOSE TEST) test strip Test blood sugar(s) 1 times daily. Dx: Type 2 DM - Controlled E11.9 Insulin: No Problem List As Of Date 01/13/2025 Noted Resolved Special screening for malignant neoplasms, colo*08/07/2008 Class: Chronic Cervical radiculitis [M54.12] 10/19/2010 Tinnitus, right [H93.11] 10/19/2010 MIKHAIL (obstructive sleep apnea) [G47.33] 04/11/2012 Acute appendicitis with localized peritonitis [*01/18/2016 01/02/2023 Elevated blood pressure reading without diagnos*03/28/2018 Ganglion cyst [M67.40] 03/28/2018 Obesity, Class I, BMI 30-34.9 [E66.811] 03/28/2018 01/12/2025 Vitamin D deficiency [E55.9] 01/02/2023 Diabetes mellitus type 2, controlled, without c*01/02/2023 Central sleep apnea [G47.31] 04/18/2024 Uses bilevel positive airway pressure (BPAP) ve*09/01/2024 Encounter Status:Closed by VIRGINIA HURST [facility] TRESA MUÑOZ ([id number]) 1970 M Date Time Provider Department 01/13/25 EDOUARD NOLAND [facility] During your visit today, we recorded the following information about you: Edouard Noland MD 01/13/2025 3:51 PM Signed Not all labs are back. But just called with a a critically high ionized calcium. Can cause symptoms like the numbness and tingling etc. High calcium can be an emergency. It is high enough, he likely requires iv fluids and may need further work up. Send to Er of his choice. Fax yesterdays notes, todays critical calcium and labs Inez Oviedo LPN 01/13/2025 3:59 PM Signed Spoke with patient and reviewed provider's message with him. Patient reports that he already left for [place]. Advised patient I could forward the information to one of the ER's along the way to [place] or in [place] if he could provide Name of the hospital. Patient declined and stated he was just going to watch what he ate and increase his fluid intake. Advised patient that I would let Dr Noland know. ASIF Jones William J, MD 01/13/2025 4:08 PM Signed Ok. Patient is declining treatment. Will await pending labs. Thank you Allergies As of Date: 01/13/2025 Noted Allergy Reaction AMOXIL (AMOXICILLIN) 11/16/2014 2 - Rash ANIMAL DANDER 03/06/2012 5 - Intolerance Comments: nasal congestion KETOCONAZOLE 01/02/2023 2 - Rash Comments: blisters Date Reviewed: 09/01/2024 Reviewed by: Porsha Acharya LPN - Fully Assessed Reason for Visit: Results [95] Prescriptions as of 01/13/2025 - multivitamin tablet Take 1 tablet by mouth once daily. - APPLE CIDER VINEGAR ORAL Take 600 mg by mouth. - OTC NUTRITIONAL SUPPLEMENT Sodium bytyrate - dulaglutide (TRULICITY) 0.75 mg/0.5 mL pen injector Inject 0.75 mg subcutaneously one time a week. - sildenafil (VIAGRA) 100 mg tablet Take 1 tablet by mouth once daily as needed. Take 30-60 minutes before sexual activity. - CPAP/BIPAP/OTHER biPAP ST 16/11 cmH2O with BUR 12 DME [facility] - gabapentin (NEURONTIN) 300 mg capsule Take 1 capsule after arriving home from work or 1 hour before bedtime. - dihydroberberine (BERBERINE ES-5 ORAL) Take 1 tablet by mouth once daily. - Blood-Glucose Sensor (FREESTYLE WYATT 3 SENSOR) benjy Apply new sensor every fourteen (14) days to upper arm. - flash glucose sensor (FREESTYLE WYATT 2 SENSOR) kit Apply new sensor every fourteen (14) days to upper arm. - lutein-zeaxanthin 25-5 mg cap Take 1 capsule by mouth once daily. - turmeric 400 mg cap Take 1 capsule by mouth once daily. - loratadine 10 mg cap Take by mouth. - aspirin, enteric coated (ASPIRIN, ENTERIC COATED) 81 mg EC tablet Take 81 mg by mouth once daily. - MAGNESIUM ORAL Take 400 mg by mouth. - cholecalciferol, vitamin D3, (VITAMIN D3 ORAL) Take 2,000 Units by mouth. - ZINC ORAL Take 50 mg by mouth. - CINNAMON With berberine - Lancets lancets Test blood sugar(s) 1 times daily. Dx: Type 2 DM - Controlled E11.9 Insulin: No - blood sugar diagnostic (BLOOD GLUCOSE TEST) test strip Test blood sugar(s) 1 times daily. Dx: Type 2 DM - Controlled E11.9 Insulin: No Problem List As Of Date 01/13/2025 Noted Resolved Special screening for malignant neoplasms, colo*08/07/2008 Class: Chronic Cervical radiculitis [M54.12] 10/19/2010 Tinnitus, right [H93.11] 10/19/2010 MIKHAIL (obstructive sleep apnea) [G47.33] 04/11/2012 Acute appendicitis with localized peritonitis [*01/18/2016 01/02/2023 Elevated blood pressure reading without diagnos*03/28/2018 Ganglion cyst [M67.40] 03/28/2018 Obesity, Class I, BMI 30-34.9 [E66.811] 03/28/2018 01/12/2025 Vitamin D deficiency [E55.9] 01/02/2023 Diabetes mellitus type 2, controlled, without c*01/02/2023 Central sleep apnea [G47.31] 04/18/2024 Uses bilevel positive airway pressure (BPAP) ve*09/01/2024 Encounter Status:Closed by EDOUARD NOLAND on 01/13/25 Normal [facility] Calcium.ionized [Moles/Vol]o n 01-13-2025 Calcium.ionized (Bld) [Mass/Vol] 1.54 mmol/L High 1.08 - 1.30 mmol/L [facility] Calcium.ionized adjusted to pH 7.4 (Bld) [Moles/Vol] 1.52 mmol/L High 1.08 - 1.30 mmol/L [facility] Interpretation and review of laboratory results Abnormal [facility] Calcium.ionized (Bld) [Mass/Vol] 1.54 mmol/L High 1.08-1.30 [facility] Comment on above: Order Comment: Speci men Type: BLOOD SPECIMENOrdering Facility: [facility] Address: [address] [place] [address] Performed By: #### 1 995-0 ####[facility] [id number] [place] [address] [place] Calcium.ionized adjusted to pH 7.4 (Bld) [Moles/Vol] 1.52 mmol/L High 1.08-1.30 [facility] Comment on above: Order Comment: Speci men Type: BLOOD SPECIMENOrdering Facility: [facility] Address: [address] [place] [address] Performed By: #### 1 995-0 ####[facility] [id number] [place] [address] [place] PTH RELATED PEPTIDEon 2024 PTH RELATED PEPTIDE 3.1 pmol/L High 0.0-2.3 [facility] Comment on above: Order Comment: Speci men Type: BLOOD SPECIMEN [facility]ing Facility: [facility] Address: [address] [place] [address] Result Comment: INTE RPRETIVE INFORMATION: Parathyroid Hormone-Related Peptide This test was developed and its performance characteristics determined by [facility]. It has not been cleared or approved by the [place] Food and Drug Administration. This test was performed in a CLIA certified laboratory and is intended for clinical purposes. Performed By: [facility] [address] [place] [address] [employer] Turner: Bg Merida MD, PhD [place] Number: [id number] Performed By: #### 5 5454-3 #### [facility] CLIA [id number] [address] [place] [address] [place] 25(OH)D3 SerPl-mCncon 2024 25-hydroxyvitamin D3 [Mass/Vol] 35.3 ng/mL Normal 31.0-80.0 [facility] Comment on above: Order Comment: Speci men Type: BLOOD SPECIMEN [facility] Address: [address] [place] [address] Result Comment: Clas sification of 25 OH Vitamin D status: Deficiency/Insufficiency: < or = 30 ng/ml. Sufficiency/Optimal Levels: 31-80 ng/mL Toxicity: > 100 ng/mL. Test performed by chemiluminescent immunoassay. Performed By: #### 5 5454-3 #### [facility] CLIA [id number] [address] [place] [address] [place] 25-hydroxyvitamin D3 [Mass/V ol]on 01-12-2025 Interpretation and review of laboratory results Normal [facility] The reference range interval was based on an analysis of samples from healthy adults and may not pertain to children from 0-18 years old. [facility] ALBUMIN/CREATININE RATIO, UR INEon 01-12-2025 Albumin DL <= 20 mg/L (U) [Mass/Vol] mg/dL Normal [facility] Comment on above: Order Comment: Speci men Type: URINE SPECIMENOrdering Facility: [facility] Address: [address] [place] [address] Performed By: #### U ACR ####[facility] [id number] [place] [address] [place] Albumin/Creatinine (U) [Mass ratio] <15 Normal <30 [facility] Comment on above: Order Comment: Speci men Type: URINE SPECIMENOrdering Facility: [facility] Address: [address] [place] [address] Result Comment: Adul t Male and Female Nephrotic Criteria: <30 mg/g is considered normal to mildly increased 30-300 mg/g is considered moderately increased >300 mg/g is considered severely increased KDIGO. (2013). KDIGO 2012 Clinical Practice Guideline for the Evaluation and Management of Chronic Kidney Disease. Official Journal of the International Society of Nephrology, 3(1), 1-150. Performed By: #### U ACR ####[facility] [id number] [address] [address] [place] Creatinine (U) [Mass/Vol] 80.2 mg/dL Normal 20.0-300.0 [facility] Comment on above: Order Comment: Speci men Type: URINE SPECIMENOrdering Facility: [facility] Address: [address] [place] [address] Performed By: #### U ACR ####[facility] [id number] [place] [address] [place] CBC W Auto Differential pane l (Bld)on 01-12-2025 Basophils (Bld) [#/Vol] 0.03 10*3/uL [facility] Basophils/100 WBC (Bld) 0.7 % [facility] Differential cell count method Nom (Bld) Auto [facility] Eosinophils (Bld) [#/Vol] 0.26 10*3/uL [facility] Eosinophils/100 WBC (Bld) 5.7 % [facility] Erythrocyte distribution width (RBC) [Ratio] 13.2 % 11.5 - 15.0 % [facility] Hematocrit (Bld) [Volume fraction] 40.9 % 39.0 - 51.0 % [facility] Hemoglobin (Bld) [Mass/Vol] 13.7 g/dL 13.0 - 17.0 g/dL [facility] Immature granulocytes (Bld) [#/Vol] [facility] Immature granulocytes/100 WBC (Bld) 0.2 % [facility] Interpretation and review of laboratory results Abnormal [facility] Lymphocytes (Bld) [#/Vol] 0.7 10*3/uL Low [facility] Lymphocytes/100 WBC (Bld) 15.4 % [facility] MCH (RBC) [Entitic mass] 27.2 pg 26.0 - 34.0 pg [facility] MCHC (RBC) [Mass/Vol] 33.5 g/dL 30.5 - 36.0 g/dL [facility] MCV (RBC) [Entitic vol] 81.2 fL 80.0 - 100.0 fL [facility] Monocytes (Bld) [#/Vol] 0.61 10*3/uL [facility] Monocytes/100 WBC (Bld) 13.4 % [facility] Neutrophils (Bld) [#/Vol] 2.95 10*3/uL [facility] Neutrophils/100 WBC (Bld) 64.6 % [facility] Nucleated RBC (Bld) [#/Vol] [facility] Nucleated RBC/100 WBC (Bld) [Ratio] 0 % /100 WBC [facility] Platelet mean volume (Bld) [Entitic vol] 10.6 fL 9.0 - 12.7 fL [facility] Platelets (Bld) [#/Vol] 183 10*3/uL [facility] RBC (Bld) [#/Vol] 5.04 10*6/uL 4.20 - 6.0 0 m/uL [facility] WBC (Bld) [#/Vol] 4.56 10*3/uL [facility] Basophils (Bld) [#/Vol] 0.03 10*3/uL Normal <0.11 [facility] Comment on above: Order Comment: Speci men Type: BLOOD SPECIMEN [facility] Address: [address] [place] [address] Performed By: #### 5 5454-3 #### [facility] CLIA [id number] [address] [place] [address] [place] Basophils/100 WBC (Bld) 0.7 % Normal [facility] Comment on above: Order Comment: Speci men Type: BLOOD SPECIMEN [facility] Address: [address] [place] [address] Performed By: #### 5 5454-3 #### [facility] CLIA [id number] [address] [place] [address] [place] Differential cell count method Nom (Bld) Auto Normal [facility] Comment on above: Order Comment: Speci men Type: BLOOD SPECIMEN [facility] Address: [address] [place] [address] Performed By: #### 5 5454-3 #### [facility] CLIA [id number] [address] [place] [address] [place] Eosinophils (Bld) [#/Vol] 0.26 10*3/uL Normal <0.46 [facility] Comment on above: Order Comment: Speci men Type: BLOOD SPECIMEN [facility] Address: [address] [place] [address] Performed By: #### 5 5454-3 #### [facility] CLIA [id number] [address] [place] [address] [place] Eosinophils/100 WBC (Bld) 5.7 % Normal [facility] Comment on above: Order Comment: Speci men Type: BLOOD SPECIMEN [facility] Address: [address] [place] [address] Performed By: #### 5 5454-3 #### [facility] CLIA [id number] [address] [place] [address] [place] Erythrocyte distribution width (RBC) [Ratio] 13.2 % Normal 11.5-15.0 [facility] Comment on above: Order Comment: Speci men Type: BLOOD SPECIMEN [facility] Address: [address] [place] [address] Performed By: #### 5 5454-3 #### [facility] CLIA [id number] [address] [place] [address] [place] Hematocrit (Bld) [Volume fraction] 40.9 % Normal 39.0-51.0 [facility] Comment on above: Order Comment: Speci men Type: BLOOD SPECIMEN [facility] Address: [address] [place] [address] Performed By: #### 5 5454-3 #### [facility] CLIA [id number] [address] [place] [address] [place] Hemoglobin (Bld) [Mass/Vol] 13.7 g/dL Normal 13.0-17.0 [facility] Comment on above: Order Comment: Speci men Type: BLOOD SPECIMEN [facility] Address: [address] [place] [address] Performed By: #### 5 5454-3 #### [facility] CLIA [id number] [address] [place] [address] [place] Immature granulocytes (Bld) [#/Vol] 10*3/uL Normal <0.10 [facility] Comment on above: Order Comment: Speci men Type: BLOOD SPECIMEN [facility] Address: [address] [place] [address] Performed By: #### 5 5454-3 #### [facility] CLIA [id number] [address] [place] [address] [place] Immature granulocytes/100 WBC (Bld) 0.2 % Normal [facility] Comment on above: Order Comment: Speci men Type: BLOOD SPECIMEN [facility] Address: [address] [place] [address] Performed By: #### 5 5454-3 #### [facility] CLIA [id number] [address] [place] [address] [place] Lymphocytes (Bld) [#/Vol] 0.70 10*3/uL Low 1.00-4.00 [facility] Comment on above: Order Comment: Speci men Type: BLOOD SPECIMEN [facility] Address: [address] [place] [address] Performed By: #### 5 5454-3 #### [facility] CLIA [id number] [address] [place] [address] [place] Lymphocytes/100 WBC (Bld) 15.4 % Normal [facility] Comment on above: Order Comment: Speci men Type: BLOOD SPECIMEN [facility] Address: [address] [place] [address] Performed By: #### 5 5454-3 #### [facility] CLIA [id number] [address] [place] [address] [place] MCH (RBC) [Entitic mass] 27.2 pg Normal 26.0-34.0 [facility] Comment on above: Order Comment: Speci men Type: BLOOD SPECIMEN [facility] Address: [address] [place] [address] Performed By: #### 5 5454-3 #### [facility] CLIA [id number] [address] [place] [address] [place] MCHC (RBC) [Mass/Vol] 33.5 g/dL Normal 30.5-36.0 [facility] Comment on above: Order Comment: Speci men Type: BLOOD SPECIMEN [facility] Address: [address] [place] [address] Performed By: #### 5 5454-3 #### [facility] CLIA [id number] [address] [place] [address] [place] MCV (RBC) [Entitic vol] 81.2 fL Normal 80.0-100.0 [facility] Comment on above: Order Comment: Speci men Type: BLOOD SPECIMEN [facility] Address: [address] [place] [address] Performed By: #### 5 5454-3 #### [facility] CLIA [id number] [address] [place] [address] [place] Monocytes (Bld) [#/Vol] 0.61 10*3/uL Normal <0.87 [facility] Comment on above: Order Comment: Speci men Type: BLOOD SPECIMEN [facility] Address: [address] [place] [address] Performed By: #### 5 5454-3 #### [facility] CLIA [id number] [address] [place] [address] [place] Monocytes/100 WBC (Bld) 13.4 % Normal [facility] Comment on above: Order Comment: Speci men Type: BLOOD SPECIMEN [facility] Address: [address] [place] [address] Performed By: #### 5 5454-3 #### [facility] CLIA [id number] [address] [place] [address] [place] Neutrophils (Bld) [#/Vol] 2.95 10*3/uL Normal 1.45-7.50 [facility] Comment on above: Order Comment: Speci men Type: BLOOD SPECIMEN [facility] Address: [address] [place] [address] Performed By: #### 5 5454-3 #### [facility] CLIA [id number] [address] [place] [address] [place] Neutrophils/100 WBC (Bld) 64.6 % Normal [facility] Comment on above: Order Comment: Speci men Type: BLOOD SPECIMEN [facility] Address: [address] [place] [address] Performed By: #### 5 5454-3 #### [facility] CLIA [id number] [address] [place] [address] [place] Nucleated RBC (Bld) [#/Vol] 10*3/uL Normal <0.01 [facility] Comment on above: Order Comment: Speci men Type: BLOOD SPECIMEN [facility] Address: [address] [place] [address] Performed By: #### 5 5454-3 #### [facility] CLIA [id number] [address] [place] [address] [place] Nucleated RBC/100 WBC (Bld) [Ratio] 0.0 /100 WBC Normal [facility] Comment on above: Order Comment: Speci men Type: BLOOD SPECIMEN [facility] Address: [address] [place] [address] Performed By: #### 5 5454-3 #### [facility] CLIA [id number] [address] [place] [address] [place] Platelet mean volume (Bld) [Entitic vol] 10.6 fL Normal 9.0-12.7 [facility] Comment on above: Order Comment: Speci men Type: BLOOD SPECIMEN [facility] Address: [address] [place] [address] Performed By: #### 5 5454-3 #### [facility] CLIA [id number] [address] [place] [address] [place] Platelets (Bld) [#/Vol] 183 10*3/uL Normal 150-400 [facility] Comment on above: Order Comment: Speci men Type: BLOOD SPECIMEN [facility] Address: [address] [place] [address] Performed By: #### 5 5454-3 #### [facility] CLIA [id number] [address] [place] [address] [place] RBC (Bld) [#/Vol] 5.04 10*6/uL Normal 4.20-6.00 [facility] Comment on above: Order Comment: Speci men Type: BLOOD SPECIMEN [facility] Address: [address] [place] [address] Performed By: #### 5 5454-3 #### [facility] CLIA [id number] [address] [place] [address] [place] WBC (Bld) [#/Vol] 4.56 10*3/uL Normal 3.70-11.00 [facility] Comment on above: Order Comment: Speci men Type: BLOOD SPECIMEN [facility] Address: [address] [place] [address] Performed By: #### 5 5454-3 #### [facility] CLIA [id number] [address] [place] [address] [place] CNOVon 01-12-2025 CNOV Office Visit (FAMPWS ) -- TRESA MUÑOZ ([id number]) 1970 M Date Time Provider Department 01/12/25 10:40 AM EDOUARD NOLAND During your visit today, we recorded the following information about you: Pulse Blood pressure Weight 96/minute 122/82 89.4 kg Edouard Noland MD 01/12/2025 11:22 AM Addendum BONE MINERAL DENSITY PATIENT INSTRUCTIONS Bone mineral density testing measures the amount of calcium in certain parts of your bones. This information determines how strong your bones are. The test is used to detect osteoporosis, a disease in which the bone's mineral content and density are low, increasing a person's risk of fractures. The lumbar spine (lower back) and the hip are the skeletal sites usually examined. For the test, remember that: 1. You cannot take this test if you are . 2. Eat a normal diet on the day of the test. 3. Take your medications as you normally would. 4. DO NOT take calcium supplements (such as Tums) for 24 hours before the test. 5. On the day of the test, leave valuables (jewelry or credit cards) at home. 6. The test should be performed prior to oral, rectal or IV contrast studies, or at least 7 days after any of these studies. For the test, you may be asked to wear a hospital gown. You will lie on your back, on a padded table, in a comfortable position. Generally, you can resume your usual activities immediately. _- __ - Continue taking metformin as you have been (two tablets in the morning and one in the evening). - Start weekly Trulicity (dulaglutide) 0.75 mg injection; prescription sent to your pharmacy. Monitor for any gut side effects and let me know if you cannot tolerate it or insurance won?t cover. - Check your blood sugar daily, record the results, and send a list via [facility] in two weeks so we can decide if we need to adjust your doses. - Get the following non-fasting labs drawn (you can do them today before your trip if convenient): CBC (complete blood count) CMP (kidney and liver function, electrolytes) A1c Vitamin D, vitamin B12, folate TSH (thyroid) Testosterone and PSA Parathyroid panel (calcium) Protein electrophoresis Urine microalbumin - I will order a DEXA bone density scan to evaluate your bone health; please check with your insurance and schedule it. - Contact your sleep medicine provider to discuss switching from a nasal BiPAP mask to a full-face mask for better comfort and reduced snoring. - Schedule an eye exam with [facility]. - Fill and use Viagra (sildenafil) 100 mg tablets: take one dose 30-60 minutes before activity, do not exceed 100 mg in 24 hours; insurance typically covers up to six per month. - For your foot numbness and high arches, consider using supportive insoles or getting a deep foot massage to relieve discomfort. - Think about shingles and pneumococcal vaccines; check your insurance for coverage and plan to get them when you can. - Follow up in 6-8 weeks to review your lab results, blood sugar log, and fatigue. Repeat A1c in six months. Edouard Noland MD 01/13/2025 3:49 PM Signed Tresa Muñoz is a 54-year-old male with a history of T2DM, MIKHAIL, and HTN, presenting for an initial visit and evaluation of medication intolerance, fatigue, and sexual dysfunction. HPI T2DM: - Managed with metformin, causing diarrhea at full dose. - Currently taking 2 tablets in the morning and 1 in the evening; tolerates up to 3 tablets. - Reports better control with sodium butyrate. - Daily blood glucose monitoring; recent readings in the 200s. - Last A1c on 11/03. - Sister has been on Trulicity for 2 years with good results. - Lost 7 lbs since last visit; highest weight was 213 lbs. - Diet includes chicken, avoids fries, and consumes Ensure in the morning. - Due for an eye exam; last exam was a couple of years ago at [facility]. Fatigue: - Variable fatigue, requiring a daily nap before an 8-hour job. - MIKHAIL managed with BiPAP; issues with nasal mask due to sinus swelling. - reports snoring and apneic episodes. Sexual Dysfunction: - Reports erectile dysfunction; maintains libido and sexual desire. Paresthesia: - Numbness in hands and knees, worsening throughout the day. - Constant numbness in toes; intermittent numbness in legs. - Works on concrete floors; occasional back pain. - Hands swell during exercise, particularly biking. Tinnitus: - ENT evaluation revealed inner ear involvement; no effective treatment available. - Uses white noise and hearing aids for management. 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 - No pain or unusual bone fractures reported. MEDICATIONS: Current Outpatient Medications Medi (more content not included)... Normal [facility] Comprehensive metabolic 2000 panelon 01-12-2025 Albumin [Mass/Vol] 4.6 g/dL Normal 3.9-4.9 [facility] Comment on above: Order Comment: Speci men Type: BLOOD SPECIMENOrdering Facility: [facility] Address: [address] [place] [address] Performed By: #### 2 986-8, 38114-8, 3016-3 ####[facility] [id number] [place] [address] [place] ALP [Catalytic activity/Vol] 142 U/L High 38-113 [facility] Comment on above: Order Comment: Speci men Type: BLOOD SPECIMENOrdering Facility: [facility] Address: [address] [place] [address] Performed By: #### 2 986-8, 84690-9, 3016-3 ####[facility] [id number] [place] [address] [place] ALT [Catalytic activity/Vol] 22 U/L Normal 10-54 [facility] Comment on above: Order Comment: Speci men Type: BLOOD SPECIMENOrdering Facility: [facility] Address: [address] [place] [address] Performed By: #### 2 986-8, 04248-8, 3016-3 ####[facility] [id number] [address] [address] [place] Anion gap [Moles/Vol] 13 mmol/L Normal 8-15 [facility] Comment on above: Order Comment: Speci men Type: BLOOD SPECIMENOrdering Facility: [facility] Address: [address] [place] [address] Performed By: #### 2 986-8, 82640-5, 6-3 ####[facility] [id number] [place] [id number] [place] AST [Catalytic activity/Vol] 28 U/L Normal 14-40 [facility] Comment on above: Order Comment: Speci men Type: BLOOD SPECIMENOrdering Facility: [facility] Address: [address] [place] [address] Performed By: #### 2 986-8, 01752-7, 6-3 ####[facility] [id number] [place] [address] [place] Bilirubin [Mass/Vol] 0.4 mg/dL Normal 0.2-1.3 [facility] Comment on above: Order Comment: Speci men Type: BLOOD SPECIMENOrdering Facility: [facility] Address: [address] [place], [place] [address] Performed By: #### 2 986-8, 57554-9, 6-3 ####[facility] [id number] [address] [address] [place] Calcium [Mass/Vol] 12.4 mg/dL High 8.5-10.2 [facility] Comment on above: Order Comment: Speci men Type: BLOOD SPECIMENOrdering Facility: [facility] Address: [address] [place], [place] [address] Performed By: #### 2 986-8, 60285-0, 3016-3 ####[facility] [id number] [address] [address] [place] Chloride [Moles/Vol] 102 mmol/L Normal 98-107 [facility] Comment on above: Order Comment: Speci men Type: BLOOD SPECIMENOrdering Facility: [facility] Address: [address] [place] [address] Performed By: #### 2 986-8, 31615-7, 6-3 ####[facility] [id number] [address] [address] [place] CO2 [Moles/Vol] 24 mmol/L Normal 22-30 [facility] Comment on above: Order Comment: Speci men Type: BLOOD SPECIMENOrdering Facility: [facility] Address: [address] [place] [address] Performed By: #### 2 986-8, 39432-1, 6-3 ####[facility] [id number] [address] [address] [place] Creatinine [Mass/Vol] 1.31 mg/dL High 0.73-1.22 [facility] Comment on above: Order Comment: Speci men Type: BLOOD SPECIMENOrdering Facility: [facility] Address: [address] [place], [place] [address] Performed By: #### 2 986-8, 55808-5, 6-3 ####[facility] [id number] [address] [address] [place] Creatinine and Glomerular filtration rate.predicted panel (S/P/Bld) 65 mL/min/1.73m??? Normal >=60 [facility] Comment on above: Order Comment: Speci men Type: BLOOD SPECIMENOrdering Facility: [facility] Address: [address] [place], [place] [address] Result Comment: Lynne mated Glomerular Filtration Rate (eGFR) is calculated using the 2020 CKD-EPI creatinine equation. This equation utilizes serum creatinine, sex, and age as parameters. The creatinine assay has traceable calibration to isotope dilution-mass spectrometry. Refer to KDIGO guidelines for clinical interpretation. In patients with unstable renal function, e.g. those with acute kidney injury, the eGFR may not accurately reflect actual GFR. Performed By: #### 2 986-8, 91803-7, 3015-3 ####[facility] [id number] [facility] [address] [address] [place] Glucose [Mass/Vol] 126 mg/dL High 74-99 [facility] Comment on above: Order Comment: Specpretty brunner Type: BLOOD SPECIMENOrdering Facility: [facility] Address: [address] [place] [address] Result Comment: The [place] Diabetes Association (ADA) provides guidance for cutoff values for fasting glucose and random glucose. The ADA defines fasting as no caloric intake for at least 8 hours. Fasting plasma glucose results between 100 to 125 mg/dL indicate increased risk for diabetes (prediabetes). Fasting plasma glucose results greater than or equal to 126 mg/dL meet the criteria for diagnosis of diabetes. In the absence of unequivocal hyperglycemia, results should be confirmed by repeat testing. In a patient with classic symptoms of hyperglycemia or hyperglycemic crisis, random plasma glucose results greater than or equal to 200 mg/dL meet the criteria for diagnosis of diabetes. Reference: Standards of Medical Care in Diabetes 2016, [place] Diabetes Association. Diabetes Care. 2016.39(Suppl 1). Performed By: #### 2 986-8, 07294-9, 3 ####[facility] [id number] [address] [address] [place] Potassium [Moles/Vol] 4.7 mmol/L Normal 3.7-5.1 [facility] Comment on above: Order Comment: Jhony brunner Type: BLOOD SPECIMENOrdering Facility: [facility] Address: [address] [place] [address] Performed By: #### 2 986-8, 17201-2, 3015-3 ####[facility] [id number] [place] [address] [place] Protein [Mass/Vol] 8.3 g/dL High 6.3-8.0 [facility] Comment on above: Order Comment: Speci men Type: BLOOD SPECIMENOrdering Facility: [facility] Address: [address] [place] [address] Performed By: #### 2 986-8, 07826-2, 3016-3 ####[facility] [id number] [place] [address] [place] Sodium [Moles/Vol] 139 mmol/L Normal 136-144 [facility] Comment on above: Order Comment: Speci men Type: BLOOD SPECIMENOrdering Facility: [facility] Address: [address] [place] [address] Performed By: #### 2 986-8, 41370-1, 3016-3 ####[facility] [id number] [place] [address] [place] Urea nitrogen [Mass/Vol] 25 mg/dL High 9-24 [facility] Comment on above: Order Comment: Speci men Type: BLOOD SPECIMENOrdering Facility: [facility] Address: [address] [place] [address] Performed By: #### 2 986-8, 92024-4, 3016-3 ####[facility] [id number] [place] [address] [place] [facility]-20 25 Folate [Mass/Vol] ng/mL Normal >4.[address] [facility] Comment on above: Order Comment: Speci men Type: BLOOD SPECIMEN [facility] Address: [address] [place] [address] Result Comment: A re sult of > 20 ng/mL is not necessarily indicative of a pathologic or treatable condition: it reflects a limitation of the test methodology. Assay reference range: 4.8 to 24.2 ng/mL. Suitable for detection of folate deficiency. Reference: Folate III (Folate III) [package insert V 1.0 Kyr[place]z]. [facility], [place], [place]: May 2015. Performed By: #### 5 5454-3 #### [facility] CLIA [id number] [address] [place] [address] [place] HbA1c (Bld)on 01-12-2025 Average glucose Estimated from glycated hemoglobin (Bld) [Mass/Vol] 143 mg/dL Normal [facility] Comment on above: Order Comment: Speci men Type: BLOOD SPECIMEN [facility] Address: [address] [place] [address] Result Comment: eAG: (Estimated average glucose) is a calculated value from HgbA1c and is charter representative of the average blood glucose level in the last 2-3 month period. Performed By: #### 5 5454-3 #### [facility] CLIA [id number] [address] [place] [address] [place] HbA1c (Bld) [Mass fraction] 6.6 % High 4.3-5.6 [facility] Comment on above: Order Comment: Jhony brunner Type: BLOOD SPECIMEN [facility] Address: [address] [place] [address] Result Comment: Kerrie [place] Diabetes Association guidelines indicate that patients with HgbA1c in the range 5.7-6.4% are at increased risk for development of diabetes, and intervention by lifestyle modification may be beneficial. HgbA1c greater or equal to 6.5% is considered diagnostic of diabetes. Performed By: #### 5 5454-3 #### [facility] CLIA [id number] [address] [place] [address] [place] PROTEIN ELECTROPHORESIS SERU M (P)on 01-12-2025 Albumin [Mass/Vol] 4.63 g/dL Normal 3.43-5.41 [facility] Comment on above: Order Comment: Jhony men Type: BLOOD SPECIMENOrdering Facility: [facility] Address: [address] [place] [address] Performed By: #### L [id number] ####[facility] [id number] [place] [address] [place] Alpha 1 globulin Elph [Mass/Vol] 0.31 g/dL Normal 0.18-0.43 [facility] Comment on above: Order Comment: Speci men Type: BLOOD SPECIMENOrdering Facility: [facility] Address: [address] [place] [address] Performed By: #### L [id number] ####[facility] [id number] [place] [address] [place] Alpha 2 globulin Elph [Mass/Vol] 0.45 g/dL Normal 0.42-0.98 [facility] Comment on above: Order Comment: Speci men Type: BLOOD SPECIMENOrdering Facility: [facility] Address: [address] [place] [address] Performed By: #### L [id number] ####[facility] [id number] [place] [address] [place] Beta globulin Elph [Mass/Vol] 1.09 g/dL Normal 0.61-1.17 [facility] Comment on above: Order Comment: Speci men Type: BLOOD SPECIMENOrdering Facility: [facility] Address: [address] [place] [address] Performed By: #### L [id number] ####[facility] [id number] [place] [address] [place] Gamma globulin Elph [Mass/Vol] 1.42 g/dL Normal 0.53-1.51 [facility] Comment on above: Order Comment: Speci men Type: BLOOD SPECIMENOrdering Facility: [facility] Address: [address] [place] [address] Performed By: #### L [id number] ####[facility] [id number] [id number] [address] [place] M-PROTEIN LOCATION Normal [facility] Comment on above: Order Comment: Speci men Type: BLOOD SPECIMENOrdering Facility: [facility] Address: [address] [place] [address] Result Comment: Not Applicable. Performed By: #### L [id number] ####[facility] [id number] [place] [address] [place] Protein Fractions [Interp] No definitive M protein is identified on protein electrophoresis. Normal No definitive M protein is identified on protein electrophore sis. [facility] Comment on above: Order Comment: Speci men Type: BLOOD SPECIMENOrdering Facility: [facility] Address: [address] [place] [address] Performed By: #### L [id number] ####[facility] [id number] [place] [address] [place] Protein.monoclonal Elph [Mass/Vol] 0.00 g/dL Normal <=0.00 [facility] Comment on above: Order Comment: Speci men Type: BLOOD SPECIMENOrdering Facility: [facility] Address: [address] [place] [address] Performed By: #### L [id number] ####[facility] [id number] [place] [address] [place] SPE STAFF REVIEW Reviewed by Ivy Jackson MD [facility] Comment on above: Order Comment: Speci men Type: BLOOD SPECIMENOrdering Facility: [facility] Address: [address] [place] [address] Performed By: #### L [id number] ####[facility] [id number] [place] [id number] [place] PSA/PROSTATE SPECIFIC ANTIGE N SCREENINGon 01-12-2025 Prostate specific Ag [Mass/Vol] 1.97 ng/mL Normal <2.60 [facility] Comment on above: Order Comment: Speci men Type: BLOOD SPECIMENOrdering Facility: [facility] Address: [address] [place] [address] Result Comment: Tota l PSA test methodology used is the Electrochemiluminescence Immunoassay by [facility]. Total PSA values by differing methodologies cannot be interchanged. Performed By: #### P SAS1 ####[facility] [id number] [place] [address] [place] PTH-Intact SerPl-mCncon 06- Parathyrin.intact [Mass/Vol] pg/mL Low 15-65 [facility] Comment on above: Order Comment: Speci men Type: BLOOD SPECIMENOrdering Facility: [facility] Address: [address] [place] [address] Result Comment: Resu lt rechecked. Performed By: #### 2 885-2, 2132-9, 2731-8, 2284-8 ####[facility] [id number] [place] [address] [place] Prot SerPl-mCncon 01-12-2025 Protein [Mass/Vol] 7.9 g/dL Normal 6.3-8.0 [facility] Comment on above: Order Comment: Speci men Type: BLOOD SPECIMEN [facility] Address: [address] [place] [address] Performed By: #### 5 5454-3 #### [facility] CLIA [id number] [address] [place] [address] [place] TSH SerPl-aCncon 01-12-2025 TSH Qn 3.470 m[IU]/L Normal 0.270-4.200 [facility] Comment on above: Order Comment: Speci men Type: BLOOD SPECIMENOrdering Facility: [facility] Address: [address] [place] [address] Performed By: #### 2 986-8, 90780-7, 3016-3 ####[facility] [id number] [place] [address] [place] Testost [facility]-ncon 025 Testosterone [Mass/Vol] 251 ng/dL Normal 193-824 [facility] Comment on above: Order Comment: Speci men Type: BLOOD SPECIMENOrdering Facility: [facility] Address: [facility] [place] [address] Result Comment: A te stosterone level in the 193-320 ng/dL range with associated clinical symptoms is considered low and may indicate hypogonadism (from [facility] 2010 363:123-135). Results >320 ng/dL are considered normal. Performed By: #### 2 986-8, 73840-7, 3016-3 ####[facility] [id number] [address] OF [place] VITAMIN D 25 HYDROXYon 01-12 25-hydroxyvitamin D3 [Mass/Vol] 35.3 ng/mL 31.0 - 80.0 ng/mL [facility] Comment on above: Classification of 25 [place] Vitamin D status: Deficiency/Insufficiency: < or = 30 ng/ml. Sufficiency/Optimal Levels: 31-80 ng/mL Toxicity: > 100 ng/mL. Test performed by chemiluminescent immunoassay. Vit B12 SerPl-Guidoncon 025 Cobalamin (Vitamin B12) [Mass/Vol] 564 pg/mL Normal 232-1245 [facility] Comment on above: Order Comment: Speci men Type: BLOOD SPECIMEN [facility] Address: [address] [place], [place] [address] [address] Performed By: #### 5 5454-3 #### [facility] CLIA [id number] [address] [place] [address] OF [place] CNOVon 09-01-2024 CNOV Office Visit (SLEWST ) -- TRESA MUÑOZ ([id number]) 1970 M Date Time Provider Department 09/01/24 11:00 AM [facility] COWAN During your visit today, we recorded the following information about you: Pulse Respiration Blood pressure Weight 83/minute 18/minute 122/83 93.5 kg Jh Cowan APRN.CNP 09/02/2024 4:20 PM Signed [facility] Follow up/ Established patient visit Date of last visit : 04/18/2024 The following Impression/Plan was copied and pasted from the patient's last [facility] visit on 04/18/24: IMPRESSION/PLAN: Central sleep apnea (primary encounter diagnosis) Mikhail (obstructive sleep apnea) Tresa Muñoz is a 53 year old male with 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 I reviewed with pt and his the titration study that was done on 02/09/24 at [facility] that should have been transitioned to biPAP but wasn't. It was started at CPAP 7 rather than 9 cmH2O as requested, and his AHI wasn't normalized including elevated centrals yet he wasn't transitioned to biPAP. We have requested [facility] retest him at no cost to the patient. Order for Bilevel titration starting at 8/4 cmH2O. Advance to biPAP ST if needed for central events. Will order new device from [facility], pt wants to switch to this DME Case discussed with Dr Ike Cowan APRN.RUBIN Here for follow up for CSA on biPAP ST. He started biPAP ST in May 2024, he likes the device. Thinks his nasal pillows mask might not be the right size. He does have leaks. His notes when he sleeps on his back it seems like he isn't breathing, he typically sleeps on his side. Gets leg cramps. Gabapentin helps a lot, less leg cramping in calves, now mostly in lower legs, legs are less achy when he takes it SLEEP APNEA Sleep apnea type : CSA and MIKHAIL Most Recent Apnea-Hypopnea Index (AHI): 71 Treatment : [facility] History: Uses Bilevel PAP ST for 6 hours per night, 7 nights per week. Current PAP settin/9 cm H2O with BUR 12 BPM Difficulties with Bilevel PAP ST: None Reviewed objective PAP compliance data: AHI 9.1 for the past week (reviewed on pt's gideon) 07/08/24-09/01/24 download: AHI 10.1 Mask type: nasal pillow interface Mask issues: improper mask fit, he plans to check with [facility] There is a perceived benefit by the patient: no jerking awake or gasping awake -- ---- SLEEP HYGIENE QUESTIONS: Bedtime : around 130 am (works 2nd shift) Wake up Time : 730-830 am Time it takes to fall sleep : varies Number of times patient wakes up per night : 0-1 unknown reason Estimated total sleep time ( in a 24 hour period of time) : 5.5 Naps : occas 30-60 min before work Patient Questionnaires Sleep Scores 09/01/2024 Sleep Questions Reason for visit: Sleep apnea On average, hours of sleep in 24 hours: 5.5 Accidents or near accidents due to drowsy drivin 09/01/2024 [place] Sleepiness Scale Score 9 (No clinically significant daytime sleepiness) 09/01/2024 PROMIS CAT Sleep Disturbance PROMIS Sleep Disturbance T-Score 44 (within normal limits) PROMIS Sleep Disturbance Percentile 73 01/14/2024 Insomnia Severity Index Score 12 09/01/2024 Restless Leg Syndrome Score 17 (Moderate symptoms) 09/01/2024 PHQ-9 Score 3 09/01/2024 PROMIS Global Health - (T-Scores - the mean of general population = 50. Five points is a clinically meaningful difference.) Physical T-Score 47.7 Mental T-Score 45.8 ALLERGIES Allergen Reactions Amoxil [Amoxicillin] Rash Animal Dander Intolerance nasal congestion Ketoconazole Rash blisters CURRENT MEDICATIONS: dihydroberberine (BERBERINE ES-5 ORAL) Take 1 tablet by mouth once daily. Blood-Glucose Sensor (FREESTYLE WYATT 3 SENSOR) benjy Apply new sensor every fourteen (14) days to upper arm. flash glucose sensor (FREESTYLE WYATT 2 SENSOR) kit Apply new sensor every fourteen (14) days to upper arm. metFORMIN ER (GLUCOPHAGE XR) 500 mg 24 hr tablet Take 4 tablets by mouth once daily. lutein-zeaxanthin 25-5 mg cap Take 1 capsule by mouth once daily. turmeric 400 mg cap Take 1 capsule by mouth once daily. loratadine 10 mg cap Take by mouth. aspirin, enteric coated (ASPIRIN, ENTERIC COATED) 81 mg EC tablet Take 81 mg by mouth once daily. MAGNESIUM ORAL Take by mouth. cholecalciferol, vitamin D3, (VITAMIN D3 ORAL) Take by mouth. ZINC ORAL Take by mouth. CINNAMON Lancets lancets Test blood sugar(s) 1 times daily. Dx: Type 2 DM - Controlled E11.9 Insulin: No blood sugar diagnostic (BLOOD GLUCOSE TEST) test strip Test blood sugar(s) 1 times daily. Dx: Type 2 DM - Controlled E11.9 Insulin: No COMPOUNDED PRESCRIPTION Nasal mask for CPAP and any other necessary supplies (more content not included)... Normal [facility] ALKALINE PHOSPHATASE ISOENZY MES (P)on 08-13-2024 ALK PHOS BONE % 33.9 % Normal 10.7-68.3 [facility] Comment on above: Order Comment: Speci men Type: BLOOD SPECIMENOrdering Facility: [facility] Address: [address] [place] [address] Performed By: #### A LKISOP ####[facility] [id number] [place] [address] [place] ALK PHOS LIVER % 49.1 % Normal 26.0-86.2 [facility] Comment on above: Order Comment: Speci men Type: BLOOD SPECIMENOrdering Facility: [facility] Address: [address] [place] [address] Performed By: #### A LKISOP ####[facility] [id number] [place] [address] [place] BONE FRACTION 42.0 U/L Normal 12.9-52.6 [facility] Comment on above: Order Comment: Speci men Type: BLOOD SPECIMENOrdering Facility: [facility] Address: [address] [place] [address] Performed By: #### A LKISOP ####[facility] [id number] [place] [address] [place] INTESTINE FRACTION 21.1 U/L High 0.0-16.3 [facility] Comment on above: Order Comment: Speci men Type: BLOOD SPECIMENOrdering Facility: [facility] Address: [address] [place] [address] Performed By: #### A LKISOP ####[facility] [id number] [place] [address] [place] LIVER FRACTION 60.9 U/L Normal 16.0-69.3 [facility] Comment on above: Order Comment: Speci men Type: BLOOD SPECIMENOrdering Facility: [facility] Address: [address] [place] [address] Performed By: #### A LKISOP ####[facility] [id number] [place] [address] [place] [place] Neutrophils/100 WBC (Bld) 17.0 % Normal 0.0-24.2 [facility] Comment on above: Order Comment: Speci men Type: BLOOD SPECIMENOrdering Facility: [facility] Address: [address] [place] [address] Performed By: #### A LKISOP ####[facility] [id number] [place] [address] [place] ALP SerPl-cCncon 08-13-2024 ALP [Catalytic activity/Vol] 124 U/L High 38-113 [facility] Comment on above: Order Comment: Speci men Type: BLOOD SPECIMEN [facility] Address: [address] [place] [address] Performed By: #### 5 5454-3 #### [facility] CLIA [id number] [address] [place] [address] [place] [address] [place] Brain W/WO Contraston 2024 Brain W/WO Contrast [facility] [address] [place] [address] Brain W/WO Contrast MR#: [id number] Acct: [id number] Name: TRESA MUÑOZ Rep #: [id number] : 1970 M 54 From: Devonte Magana MD PCP: Dr. Edouard Noland MD Status: REG CLI Study: Brain W/WO Contrast Date of Exam: 08/11/24 Exam# [id number] Ordering Dr: Chandler Ni MD [id number] STUDY: MRI BRAIN WITH AND WITHOUT CONTRAST (ATTENTION INTERNAL AUDITORY CANALS - I.A.C.''s) REASON FOR EXAM: Male, 54 years old. SENSONEURAL HEARING LOSS,RT EAR TECHNIQUE: Standardized multiplanar fat and water weighted pulse sequences were obtained. IV 19 cc clariscan was administered for the contrast portion of the examination. COMPARISON: None. FINDINGS: Normal bilateral temporal bones. Normal bilateral internal auditory canals. There is no demonstrated intracanalicular or cisternal vestibular schwannoma (acoustic neuroma). There is no enhancement of the bilateral VIIth or VIIIth cranial nerves. Normal bilateral cochlea, vestibules and semicircular canals. Normal size of the ventricles and extra-axial spaces for the patient''s age. Normal white matter tracts of the supratentorial brain. Normal bilateral basal ganglia. Normal thalami. Normal flow voids within the major intracranial circulation suggesting patency by spin echo criteria. Normal venous enhancement. There is no enhancing intra-axial or extra-axial abnormality. There is no extra-axial fluid accumulation. Normal sella turcica, pituitary gland, infundibular stalk, optic chiasm and hypothalamus. Normal tectal plate and pineal gland. Normal midbrain, sanna and medulla. Normal cerebellum. Normal basal cisterns. No demonstrated orbital abnormality, within the constraints of a routine brain study. Mild diffuse mucosal thickening in the right maxillary sinus and small mucous retention cyst or polyp on the left. Normal calvarium and skull base. Normal visualized soft tissue structures. Normal visualized upper cervical spine. MRI/Brain W/WO Contrast IMPRESSION: Normal unenhanced and enhanced MRI of the bilateral internal auditory canals (I.A.C''s). Mild bilateral maxillary sinusitis likely chronic Electronically Signed: Devonte Magana MD at 23:01 EST Reading Location ID and State: [facility] / [place] Tel , Service support , CC: Dr. Chandler Ni MD; Dr. 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) -- RUDY MUÑOZIC ([id number]) 1970 M Date Time Provider Department 07/29/24 BOBBI HART [facility] During your visit today, we recorded the following information about you: Bobbi Hart APRN.[facility] 07/29/2024 4:57 PM Signed Can please let patient know that I received his lab results. It still shows borderline thyroid levels (subclinical hypothyroidism). We just need to continue to keep an eye on this. His alk phos was just a little elevated. This is an enzyme that can either come from a bone source or a liver source. I would like to have him recheck this in the next few weeks to ensure stability. The order is in, he just needs to stop in at his convenience. He does not need to fast. Everything else looks normal/stable. Bobbi Hart APRN.Patti Sheppard RN 07/31/2024 9:05 AM Signed Pt called and is notified of providers results and instructions. Pt voices understanding. Patti Drew RN Allergies As of Date: 07/29/2024 Noted Allergy Reaction AMOXIL (AMOXICILLIN) 11/16/2014 2 - Rash ANIMAL DANDER 03/06/2012 5 - Intolerance Comments: nasal congestion KETOCONAZOLE 01/02/2023 2 - Rash Comments: blisters Date Reviewed: 07/07/2024 Reviewed by: Deisy Groves LPN - Fully Assessed Reason for Visit: Results [95] Primary Visit Diagnosis:Elevated alkaline phosphatase level [R74.8] Order(s):ALK PHOS ISOENZYM BL [SQALKISO] Order #: [id number] FUTURE Prescriptions as of 07/31/2024 - CPAP/BIPAP/OTHER biPAP ST 13/9 cmH2O with BUR 12 bpm DME [facility] - gabapentin (NEURONTIN) 300 mg capsule Take 1 capsule after arriving home from work or 1 hour before bedtime. - dihydroberberine (BERBERINE ES-5 ORAL) Take 1 tablet by mouth once daily. - Blood-Glucose Sensor (FREESTYLE WYATT 3 SENSOR) benjy Apply new sensor every fourteen (14) days to upper arm. - flash glucose sensor (FREESTYLE WYATT 2 SENSOR) kit Apply new sensor every fourteen (14) days to upper arm. - metFORMIN ER (GLUCOPHAGE XR) 500 mg 24 hr tablet Take 4 tablets by mouth once daily. - lutein-zeaxanthin 25-5 mg cap Take 1 capsule by mouth once daily. - turmeric 400 mg cap Take 1 capsule by mouth once daily. - loratadine 10 mg cap Take by mouth. - aspirin, enteric coated (ASPIRIN, ENTERIC COATED) 81 mg EC tablet Take 81 mg by mouth once daily. - MAGNESIUM ORAL Take by mouth. - cholecalciferol, vitamin D3, (VITAMIN D3 ORAL) Take by mouth. - ZINC ORAL Take by mouth. - CINNAMON - Lancets lancets Test blood sugar(s) 1 times daily. Dx: Type 2 DM - Controlled E11.9 Insulin: No - blood sugar diagnostic (BLOOD GLUCOSE TEST) test strip Test blood sugar(s) 1 times daily. Dx: Type 2 DM - Controlled E11.9 Insulin: No - COMPOUNDED PRESCRIPTION Nasal mask for CPAP and any other necessary supplies such as tubing #1 G47.33 MIKHAIL (obstructive sleep apnea) (primary encounter diagnosis) - COMPOUNDED PRESCRIPTION Mask (per patient preference) optional chin strap (if indicated) , filters, tubing, humidifier and lifetime supplies. Dx. MIKHAIL G47.33 - COMPOUNDED PRESCRIPTION cpap supplies, including mask. DX: MIKHAIL - COMPOUNDED PRESCRIPTION Initiate CPAP @ 11 cm of water with humidification. EPR setting of 3. Mask (per patient preference) Mirage FX wide was used during study. Chin strap (if indicated) tubing, filters, humidifier and lifetime supplies. Dx. Central Sleep Apnea 327.2 Problem List As Of Date 07/29/2024 Noted Resolved Special screening for malignant neoplasms, colo*08/07/2008 Class: Chronic Cervical radiculitis [M54.12] 10/19/2010 Tinnitus, right [H93.11] 10/19/2010 MIKHAIL (obstructive sleep apnea) [G47.33] 04/11/2012 Acute appendicitis with localized peritonitis [*01/18/2016 01/02/2023 Elevated blood pressure reading without diagnos*03/28/2018 Ganglion cyst [M67.40] 03/28/2018 Obesity, Class I, BMI 30-34.9 [E66.811] 03/28/2018 Vitamin D deficiency [E55.9] 01/02/2023 Diabetes mellitus type 2, controlled, without c*01/02/2023 Central sleep apnea [G47.31] 04/18/2024 Encounter Status:Closed by PATTI DREW on 07/31/24 Normal [facility] 25(OH)D3 [facility] 2023 25-hydroxyvitamin D3 [Mass/Vol] 36.9 ng/mL Normal 31.0-80.0 [facility] Comment on above: Order Comment: Speci men Type: BLOOD SPECIMEN [facility] Address: [address] [place] [address] Result Comment: Clas sification of 25 [place] Vitamin D status: Deficiency/Insufficiency: < or = 30 ng/ml. Sufficiency/Optimal Levels: 31-80 ng/mL Toxicity: > 100 ng/mL. Test performed by chemiluminescent immunoassay. Performed By: #### 1 989-3 #### [facility] CLIA [id number] [address] [place] [address] [place] Comprehensive metabolic 2000 panelon 07-25-2024 Albumin [Mass/Vol] 4.4 g/dL Normal 3.9-4.9 [facility] Comment on above: Order Comment: Speci men Type: BLOOD SPECIMENOrdering Facility: [facility] Address: [address] [place] [address] Performed By: #### 3 016-3, 60381-7, 67517-0, 3024-7 ####[facility] LAB[facility] [id number] [place] [address] [place] ALP [Catalytic activity/Vol] 126 U/L High 38-113 [facility] Comment on above: Order Comment: Speci men Type: BLOOD SPECIMENOrdering Facility: [facility] Address: [address] [place] [address] Performed By: #### 3 016-3, 12481-6, 53916-6, 3024-7 ####[facility] [id number] [place] [address] [place] ALT [Catalytic activity/Vol] 30 U/L Normal 10-54 [facility] Comment on above: Order Comment: Speci men Type: BLOOD SPECIMENOrdering Facility: [facility] Address: [address] [place] [address] Performed By: #### 3 016-3, 49771-7, 77842-1, 3024-7 ####[facility] [id number] [place] [address] [place] Anion gap [Moles/Vol] 13 mmol/L Normal 8-15 [facility] Comment on above: Order Comment: Speci men Type: BLOOD SPECIMENOrdering Facility: [facility] Address: [address] [place] [address] Performed By: #### 3 016-3, 94728-5, 95964-9, 7 ####[facility] [id number] [address] [address] [place] AST [Catalytic activity/Vol] 29 U/L Normal 14-40 [facility] Comment on above: Order Comment: Speci men Type: BLOOD SPECIMENOrdering Facility: [facility] Address: [address] [place] [address] Performed By: #### 3 016-3, 72087-3, 85535-7, 7 ####[facility] [id number] [place] [address] [place] Bilirubin [Mass/Vol] 0.3 mg/dL Normal 0.2-1.3 [facility] Comment on above: Order Comment: Speci men Type: BLOOD SPECIMENOrdering Facility: [facility] Address: [address] [place] [address] Performed By: #### 3 016-3, 15973-1, 46216-7, 7 ####[facility] [id number] [place] [address] [place] Calcium [Mass/Vol] 10.2 mg/dL Normal 8.5-10.2 [facility] Comment on above: Order Comment: Speci men Type: BLOOD SPECIMENOrdering Facility: [facility] Address: [address] [place], [place] [address] Performed By: #### 3 016-3, 22106-6, 03975-6, 7 ####[facility] LABCLIA [id number] [place] [id number] [place] Chloride [Moles/Vol] 103 mmol/L Normal 98-107 [facility] Comment on above: Order Comment: Speci men Type: BLOOD SPECIMENOrdering Facility: [facility] Address: [address] [place] [address] Performed By: #### 3 016-3, 59273-7, 28632-6, 3024-01 ####[facility] [id number] [place] [address] [place] CO2 [Moles/Vol] 25 mmol/L Normal 22-30 [facility] Comment on above: Order Comment: Speci men Type: BLOOD SPECIMENOrdering Facility: [facility] Address: [address] [place] [address] Performed By: #### 3 016-3, 78127-1, 33436-0, 3024-01 ####[facility] [id number] [place] [address] [place] Creatinine [Mass/Vol] 1.02 mg/dL Normal 0.73-1.22 [facility] Comment on above: Order Comment: Speci men Type: BLOOD SPECIMENOrdering Facility: [facility] Address: [address] [place] [address] Performed By: #### 3 016-3, 97220-3, 96487-0, 3024-01 ####[facility] [id number] [place] [address] [place] Creatinine and Glomerular filtration rate.predicted panel (S/P/Bld) 88 mL/min/1.73m??? Normal >=60 [facility] Comment on above: Order Comment: Speci men Type: BLOOD SPECIMENOrdering Facility: [facility] Address: [address] [place] [address] Result Comment: Lynne mated Glomerular Filtration Rate (eGFR) is calculated using the 2020 CKD-EPI creatinine equation. This equation utilizes serum creatinine, sex, and age as parameters. The creatinine assay has traceable calibration to isotope dilution-mass spectrometry. Refer to KDIGO guidelines for clinical interpretation. In patients with unstable renal function, e.g. those with acute kidney injury, the eGFR may not accurately reflect actual GFR. Performed By: #### 3 016-3, 64042-6, 65431-0, 3024-01 ####[facility]CL[facility] [id number] [place] [address] [place] Glucose [Mass/Vol] 160 mg/dL High 74-99 [facility] Comment on above: Order Comment: Speci men Type: BLOOD SPECIMENOrdering Facility: [facility] Address: [address] [place] [address] Result Comment: The [place] Diabetes Association (ADA) provides guidance for cutoff values for fasting glucose and random glucose. The ADA defines fasting as no caloric intake for at least 8 hours. Fasting plasma glucose results between 100 to 125 mg/dL indicate increased risk for diabetes (prediabetes). Fasting plasma glucose results greater than or equal to 126 mg/dL meet the criteria for diagnosis of diabetes. In the absence of unequivocal hyperglycemia, results should be confirmed by repeat testing. In a patient with classic symptoms of hyperglycemia or hyperglycemic crisis, random plasma glucose results greater than or equal to 200 mg/dL meet the criteria for diagnosis of diabetes. Reference: Standards of Medical Care in Diabetes 2016, [place] Diabetes Association. Diabetes Care. 2016.39(Suppl 1). Performed By: #### 3 016-3, 20664-4, 72203-0, 3024-7 ####[facility] [id number] [place] [address] [place] Potassium [Moles/Vol] 4.7 mmol/L Normal 3.7-5.1 [facility] Comment on above: Order Comment: Speci men Type: BLOOD SPECIMENOrdering Facility: [facility] Address: [address] [place] [address] Performed By: #### 3 016-3, 08988-9, 52985-0, 3024-7 ####[facility] [id number] [place] [address] [place] Protein [Mass/Vol] 7.6 g/dL Normal 6.3-8.0 [facility] Comment on above: Order Comment: Speci men Type: BLOOD SPECIMENOrdering Facility: [facility] Address: [address] [place] [address] Performed By: #### 3 016-3, 27778-3, 56101-9, 3024-7 ####[facility]CL[facility] [id number] [place] [id number] [place] Sodium [Moles/Vol] 141 mmol/L Normal 136-144 [facility] Comment on above: Order Comment: Speci men Type: BLOOD SPECIMENOrdering Facility: [facility] Address: [address] [place] [address] Performed By: #### 3 016-3, 52686-2, 04670-9, 3024-7 ####[facility] [id number] [place] [address] [place] Urea nitrogen [Mass/Vol] 22 mg/dL Normal 9-24 [facility] Comment on above: Order Comment: Speci men Type: BLOOD SPECIMENOrdering Facility: [facility] Address: [address] [place] [address] Performed By: #### 3 016-3, 43872-0, 60106-2, 3024-7 ####[facility] [id number] [place] [address] [place] HbA1c (Bld)on 07-25-2024 Average glucose Estimated from glycated hemoglobin (Bld) [Mass/Vol] 134 mg/dL Normal [facility] Comment on above: Order Comment: Speci men Type: BLOOD SPECIMENOrdering Facility: [facility] Address: [address] [place] [address] Result Comment: eAG: (Estimated average glucose) is a calculated value from HgbA1c and is charter representative of the average blood glucose level in the last 2-3 month period. Performed By: #### 5 5454-3 ####[facility] [id number] [place] [address] [place] HbA1c (Bld) [Mass fraction] 6.3 % High 4.3-5.6 [facility] Comment on above: Order Comment: Speci men Type: BLOOD SPECIMENOrdering Facility: [facility] Address: [address] [place] [address] Result Comment: [place] Diabetes Association guidelines indicate that patients with HgbA1c in the range 5.7-6.4% are at increased risk for development of diabetes, and intervention by lifestyle modification may be beneficial. HgbA1c greater or equal to 6.5% is considered diagnostic of diabetes. Performed By: #### 5 5454-3 ####[facility] [id number] [place] [address] [place] Lipid 1996 panelon 4 Cholesterol [Mass/Vol] 175 mg/dL Normal <200 [facility] Comment on above: Order Comment: Randalli men Type: BLOOD SPECIMENOrdering Facility: [facility] Address: [address] [place] [address] Result Comment: <200 mg/dL, Desirable 200-239 mg/dL, Borderline high >239 mg/dL, High Performed By: #### 3 016-3, 20159-8, 43819-0, 302-7 ####[facility] [id number] [address] [place] Cholesterol in HDL [Mass/Vol] 28 mg/dL Low >39 [facility] Comment on above: Order Comment: Jhony brunner Type: BLOOD SPECIMENOrdering Facility: [facility] Address: [address] [place] [address] Result Comment: 40-5 9 mg/dL, Acceptable >59 mg/dL, High: Negative risk factor for coronary heart disease <40 mg/dL, Low: Positive risk factor for coronary heart disease Performed By: #### 3 016-3, 96758-6, 96607-5, 3024-7 ####[facility] [id number] [address] [place] Cholesterol in LDL [Mass/Vol] 89 mg/dL Normal <100 [facility] Comment on above: Order Comment: Randalli men Type: BLOOD SPECIMENOrdering Facility: [facility] Address: [address] [place] [address] Result Comment: <100 mg/dL, Optimal 100-129 mg/dL, Near optimal/above optimal 130-159 mg/dL, Borderline high 160-189 mg/dL, High >189 mg/dL, Very high Secondary prevention optimal LDL Cholesterol levels are recommended to be < 70 mg/dL Performed By: #### 3 016-3, 60402-6, 78764-3, 7 ####[facility] [id number] [place] [address] [place] Cholesterol in LDL/Cholesterol in HDL [Mass ratio] 3.18 {ratio} High <2.54 [facility] Comment on above: Order Comment: Speci men Type: BLOOD SPECIMENOrdering Facility: [facility] Address: [address] [place] [address] Result Comment: Refe rence: 1. National Cholesterol Education Program ATP III Guideline At-A-Glance Quick Desk Reference: National Heart, Lung, and Blood [place]. National Institutes of Health. 2001: NIH Publication No. 01-3305. 2. An International Atherosclerosis Society position paper: global recommendations for the management of dyslipidemia: executive summary, Atherosclerosis. 2014: 232(2):410-413. Performed By: #### 3 016-3, 79627-2, 92637-6, 3024-01 ####[facility] [id number] [place] [address] [place] Cholesterol in VLDL [Mass/Vol] 58 mg/dL High <30 [facility] Comment on above: Order Comment: Speci men Type: BLOOD SPECIMENOrdering Facility: [facility] Address: [address] [place] [address] Performed By: #### 3 016-3, 37934-9, 14671-0, 3024-01 ####[facility] [id number] [address] [address] [place] Cholesterol non HDL [Mass/Vol] 147 mg/dL High <130 [facility] Comment on above: Order Comment: Speci men Type: BLOOD SPECIMENOrdering Facility: [facility] Address: [address] [place] [address] Result Comment: <130 mg/dL, Optimal 130-159 mg/dL, Near optimal/above optimal 160-189 mg/dL, Borderline high 190-219 mg/dL, High >219 mg/dL, Very high Secondary prevention optimal non HDL Cholesterol levels are recommended to be <100 mg/dL Performed By: #### 3 016-3, 13130-5, 88947-8, 3024-7 ####[facility] [id number] [place] [address] [place] Cholesterol.total/Chol esterol in HDL [Mass ratio] 6.25 {ratio} High <5.10 [facility] Comment on above: Order Comment: Speci men Type: BLOOD SPECIMENOrdering Facility: [facility] Address: [address] [place] [address] Performed By: #### 3 016-3, 39269-9, 32350-4, 302-7 ####[facility] [id number] [place] [address] [place] FASTING TIME 12 hrs Normal [facility] Comment on above: Order Comment: Speci men Type: BLOOD SPECIMENOrdering Facility: [facility] Address: [address] [place] [address] Performed By: #### 3 016-3, 59496-4, 29972-7, 3024-7 ####[facility] [id number] [place] [id number] [place] Triglyceride [Mass/Vol] 288 mg/dL High <150 [facility] Comment on above: Order Comment: Speci men Type: BLOOD SPECIMENOrdering Facility: [facility] Address: [address] [place] [address] Result Comment: <150 mg/dL, Normal 150-199 mg/dL, Borderline high 200-499 mg/dL, High >499 mg/dL, Very high Performed By: #### 3 016-3, 00598-9, 49243-6, 3024-7 ####[facility] [id number] [place] [address] [place] T4 Free SerPl-mCncon 024 Free T4 [Mass/Vol] 1.2 ng/dL Normal 0.9-1.7 [facility] Comment on above: Order Comment: Speci men Type: BLOOD SPECIMENOrdering Facility: [facility] Address: [address] [place] [address] Performed By: #### 3 016-3, 59197-0, 29677-7, 30247 ####[facility] [id number] [place] [address] [place] TSH SerPl-aCncon 07-25-2024 TSH Qn 4.570 m[IU]/L High 0.270-4.200 [facility] Comment on above: Order Comment: Speci men Type: BLOOD SPECIMENOrdering Facility: [facility] Address: [address] [place] [address] Performed By: #### 3 016-3, 03311-7, 36013-4, 3027 ####[facility] [id number] [address] [place] CNOVon 07-07-2024 CNOV Office Visit ([facility] ) -- TRESA MUÑOZ ([id number]) 1970 M Date Time Provider Department 07/07/24 8:20 AM BOBBI HART During your visit today, we recorded the following information about you: Pulse Respiration Blood pressure Weight 80/minute 16/minute 116/82 92.5 kg Bobbi Hart APRN.MOVING [employer]CTURE OPERATOR 07/08/2024 8:18 AM Signed This is a 53 year old male who presents today with: Patient presents with: 6 Month Exam HISTORY OF PRESENT ILLNESS: Tresa Muñoz is a 53 year old male. Patient presents with: 6 Month Exam DM: Reports overall feeling well. Medication side effects: Yes still with intermittent diarrhea. Home sugar checks: averages around 150. Hypoglycemic spells: No. Watching diet: Yes. Actually changed from milk to Glucerna because less spike in blood sugar. Unexpected weight loss: No. Polyuria, polydipsia: No. Vision Changes: No. Foot lesions or numbness or pain: anything from knees down. Feet are numb. Follows with clinical pharmacy. Sleep apnea Using cpap. Following with sleep medicine. PAST MEDICAL HISTORY: PAST MEDICAL HISTORY Diagnosis Date Diabetes mellitus type 2, controlled, without complications ([facility]) 01/02/2023 GERD (gastroesophageal reflux disease) Obstructive sleep apnea PAST SURGICAL HISTORY Procedure Laterality Date COLONOSCOPY 03/19/2023 repeat in 10 years EYE SURGERY HX FRACTURE SURGERY LAPAROSCOPIC APPENDECTOMY 01/14/2016 PAST SURGICAL HISTORY OF 03/30/1990 right hand -- ORIF of 4th and 5th metacarpals ALLERGIES Amoxil [Amoxicillin], Animal Dander, and Ketoconazole MEDICATIONS Current Outpatient Medications Medication Sig CPAP/BIPAP/OTHER biPAP ST 13/9 cmH2O with BUR 12 bpm DME [facility] gabapentin (NEURONTIN) 300 mg capsule Take 1 capsule after arriving home from work or 1 hour before bedtime. dihydroberberine (BERBERINE ES-5 ORAL) Take 1 tablet by mouth once daily. Blood-Glucose Sensor (FREESTYLE WYATT 3 SENSOR) benjy Apply new sensor every fourteen (14) days to upper arm. flash glucose sensor (FREESTYLE WYATT 2 SENSOR) kit Apply new sensor every fourteen (14) days to upper arm. metFORMIN ER (GLUCOPHAGE XR) 500 mg 24 hr tablet Take 4 tablets by mouth once daily. lutein-zeaxanthin 25-5 mg cap Take 1 capsule by mouth once daily. turmeric 400 mg cap Take 1 capsule by mouth once daily. VITAMIN A ORAL Take by mouth. loratadine 10 mg cap Take by mouth. MEDICATION, NON-DATABASE Billberry and Lion's Eric aspirin, enteric coated (ASPIRIN, ENTERIC COATED) 81 mg EC tablet Take 81 mg by mouth once daily. MAGNESIUM ORAL Take by mouth. cholecalciferol, vitamin D3, (VITAMIN D3 ORAL) Take by mouth. ZINC ORAL Take by mouth. vit C/E/Zn/coppr/lutein/zeaxan (PRESERVISION AREDS-2 ORAL) Take by mouth. CINNAMON ascorbic acid (VITAMIN C ORAL) Take by mouth. Lancets lancets Test blood sugar(s) 1 times daily. Dx: Type 2 DM - Controlled E11.9 Insulin: No blood sugar diagnostic (BLOOD GLUCOSE TEST) test strip Test blood sugar(s) 1 times daily. Dx: Type 2 DM - Controlled E11.9 Insulin: No COMPOUNDED PRESCRIPTION Nasal mask for CPAP and any other necessary supplies such as tubing #1 G47.33 MIKHAIL (obstructive sleep apnea) (primary encounter diagnosis) COMPOUNDED PRESCRIPTION Mask (per patient preference) optional chin strap (if indicated) , filters, tubing, humidifier and lifetime supplies. Dx. MIKHAIL G47.33 COMPOUNDED PRESCRIPTION cpap supplies, including mask. DX: MIKHAIL COMPOUNDED PRESCRIPTION Initiate CPAP @ 11 cm of water with humidification. EPR setting of 3. Mask (per patient preference) Mirage FX wide was used during study. Chin strap (if indicated) tubing, filters, humidifier and lifetime supplies. Dx. Central Sleep Apnea 327.2 No current facility-administered medications for this visit. FAMILY HISTORY Problem Relation Age of Onset Breast Cancer Mother other (smoker) Father Thyroid Sister uncertain, ? under No Known Problems Brother Hypertension Maternal Grandmother Stroke Maternal Grandmother Heart Attack Maternal Grandfather Alzheimer's Disease Paternal Grandmother Stroke Paternal Grandfather Diabetes Maternal Uncle Cancer Maternal Uncle unknown Social History Tobacco Use Smoking status: Never Smokeless tobacco: Never Vaping Use Vaping status: Never Used Substance Use Topics Alcohol use: No Drug use: No EXAM: BP 116/82 Pulse 80 Resp 16 Wt 92.5 kg (204 lb) SpO2 98% BMI 26.19 kg/m? PHYSICAL EXAM: General Appearance: Well appearing, alert, in no acute distress, well-hydrated, well nourished.. Skin: Skin color, texture, turgor normal, no suspicious rashes or lesions. Head: Normocephalic, no masses, lesions, tenderness or abnormalities. Eyes: Anicteric sclera. Pupils are equally round and reactive to light. Extraocular movements are intact. . Ears: External ears normal, canals wild (more content not included)... Normal [facility] CNPNon 05-27-2024 LAILA Telephone (JOEL) -- TRESA MUÑOZ ([id number]) 1970 M Date Time Provider Department 05/27/24 EDOUARD RAMIRES JR During your visit today, we recorded the following information about you: Deisy Groves LPN 05/27/2024 1:00 PM Signed Pt and calling for results of sleep titration done at [facility] on 05/08. Results scanned into [facility]. Please review and advise. Scan on 05/08/2024 by Provider, External, PAThonyC: Titration Study Jh Cowan APRN.CNP 05/27/2024 1:42 PM Signed Please apologize for the delay in our getting results. This study recommends biPAP ST at a pressure of 13/9 with a backup rate of 12 breaths per minute. He needs the backup rate in order to control his central apnea. Please fax the order and all related documents to [facility]. He will need a 31-90 day compliance follow up appointment. Jh Cowan APRN.Cristina Waller LPN 05/27/2024 4:33 PM Signed Called spouse advised of message below from Raphael Cowan, verbalized understanding. Advised orders were sent to [facility]. Spouse stated patient needs refill of gabapentin, called into [facility] LPN May 27, 2024 4:32 PM Jh Cowan APRN.CNP 05/27/2024 10:33 PM Signed RF sent PDMP website checked and validated. All prescriptions have been APPROPRIATELY filled. No suspicious activity was identified. 05/27/2024 by Jh Cowan APRN.CNP Allergies As of Date: 05/27/2024 Noted Allergy Reaction AMOXIL (AMOXICILLIN) 11/16/2014 2 - Rash ANIMAL DANDER 03/06/2012 5 - Intolerance Comments: nasal congestion KETOCONAZOLE 01/02/2023 2 - Rash Comments: blisters Date Reviewed: 04/18/2024 Reviewed by: Hanna Beasley LPN - Fully Assessed Reason for Visit: Results [95] Primary Visit Diagnosis:Central sleep apnea [G47.31] Other Visit Diagnoses:MIKHAIL (obstructive sleep apnea) [G47.33] RLS (restless legs syndrome) [G25.81] Order(s):PAP THERAPY ORDER [[id number]] Order #: [id number]: 1 Prescriptions as of 10/13/2024 - CPAP/BIPAP/OTHER biPAP ST 16/11 cmH2O with BUR 12 DME [facility] - metFORMIN ER (GLUCOPHAGE XR) 500 mg 24 hr tablet Take 4 tablets by mouth once daily. - gabapentin (NEURONTIN) 300 mg capsule Take 1 capsule after arriving home from work or 1 hour before bedtime. - dihydroberberine (BERBERINE ES-5 ORAL) Take 1 tablet by mouth once daily. - Blood-Glucose Sensor (FREESTYLE WYATT 3 SENSOR) benjy Apply new sensor every fourteen (14) days to upper arm. - flash glucose sensor (FREESTYLE WYATT 2 SENSOR) kit Apply new sensor every fourteen (14) days to upper arm. - lutein-zeaxanthin 25-5 mg cap Take 1 capsule by mouth once daily. - turmeric 400 mg cap Take 1 capsule by mouth once daily. - loratadine 10 mg cap Take by mouth. - aspirin, enteric coated (ASPIRIN, ENTERIC COATED) 81 mg EC tablet Take 81 mg by mouth once daily. - MAGNESIUM ORAL Take by mouth. - cholecalciferol, vitamin D3, (VITAMIN D3 ORAL) Take by mouth. - ZINC ORAL Take by mouth. - CINNAMON - Lancets lancets Test blood sugar(s) 1 times daily. Dx: Type 2 DM - Controlled E11.9 Insulin: No - blood sugar diagnostic (BLOOD GLUCOSE TEST) test strip Test blood sugar(s) 1 times daily. Dx: Type 2 DM - Controlled E11.9 Insulin: No Problem List As Of Date 05/27/2024 Noted Resolved Special screening for malignant neoplasms, colo*08/07/2008 Class: Chronic Cervical radiculitis [M54.12] 10/19/2010 Tinnitus, right [H93.11] 10/19/2010 MIKHAIL (obstructive sleep apnea) [G47.33] 04/11/2012 Acute appendicitis with localized peritonitis [*01/18/2016 01/02/2023 Elevated blood pressure reading without diagnos*03/28/2018 Ganglion cyst [M67.40] 03/28/2018 Obesity, Class I, BMI 30-34.9 [E66.811] 03/28/2018 Vitamin D deficiency [E55.9] 01/02/2023 Diabetes mellitus type 2, controlled, without c*01/02/2023 Central sleep apnea [G47.31] 04/18/2024 Prescriptions ordered this encounter Disp Refills Start End CPAP/BIPAP/OTHER 1 Ea* 0 05/27/2024 09/01/2024 Class: In Office Sig: biPAP ST 13/9 cmH2O with BUR 12 bpm DME [facility] GABAPENTIN 300 MG CAPSULE 30 c* 2 05/27/2024 09/01/2024 Sig: Take 1 capsule after arriving home from work or 1 hour before bedtime. Medications Discontinued During This Encounter Prescriptions - gabapentin (NEURONTIN) 300 mg capsule (Discontinued) Take 1 capsule after arriving home from work or 1 hour before bedtime. Encounter Status:Closed by DEISY GROVES on 10/13/24 [facility] [place] 04-25-2024 LAILA Telephone (SUKHJINDERWST) -- TRESA MUÑOZ ([id number]) 1970 M Date Time Provider Department 04/25/24 JH COWAN During your visit today, we recorded the following information about you: Patti Drew, RN 04/25/2024 3:44 PM Signed [facility] called in and reports she needs Pt las OV note from Jh Cowan PROCESS IMPROVEMENT SPECIALIST and order for titration study. She reports they will do it no charge, they just need it sent over for either the titration for Bipap or ASV. Faxed to # [phone]. Allergies As of Date: 04/25/2024 Noted Allergy Reaction AMOXIL (AMOXICILLIN) 11/16/2014 2 - Rash ANIMAL DANDER 03/06/2012 5 - Intolerance Comments: nasal congestion KETOCONAZOLE 01/02/2023 2 - Rash Comments: blisters Date Reviewed: 04/18/2024 Reviewed by: Hanna Beasley LPN - Fully Assessed Reason for Visit: Fax last OV note and Sleep Study Order [Other] Prescriptions as of 04/25/2024 - dihydroberberine (BERBERINE ES-5 ORAL) Take 1 tablet by mouth once daily. - gabapentin (NEURONTIN) 300 mg capsule Take 1 capsule after arriving home from work or 1 hour before bedtime. - Blood-Glucose Sensor (FREESTYLE WYATT 3 SENSOR) benjy Apply new sensor every fourteen (14) days to upper arm. - flash glucose sensor (FREESTYLE WYATT 2 SENSOR) kit Apply new sensor every fourteen (14) days to upper arm. - metFORMIN ER (GLUCOPHAGE XR) 500 mg 24 hr tablet Take 4 tablets by mouth once daily. - lutein-zeaxanthin 25-5 mg cap Take 1 capsule by mouth once daily. - turmeric 400 mg cap Take 1 capsule by mouth once daily. - VITAMIN A ORAL Take by mouth. - loratadine 10 mg cap Take by mouth. - MEDICATION, NON-DATABASE Billberry and Lion's Eric - aspirin, enteric coated (ASPIRIN, ENTERIC COATED) 81 mg EC tablet Take 81 mg by mouth once daily. - MAGNESIUM ORAL Take by mouth. - cholecalciferol, vitamin D3, (VITAMIN D3 ORAL) Take by mouth. - ZINC ORAL Take by mouth. - vit C/E/Zn/coppr/lutein/zeaxan (PRESERVISION AREDS-2 ORAL) Take by mouth. - CINNAMON - ascorbic acid (VITAMIN C ORAL) Take by mouth. - Lancets lancets Test blood sugar(s) 1 times daily. Dx: Type 2 DM - Controlled E11.9 Insulin: No - blood sugar diagnostic (BLOOD GLUCOSE TEST) test strip Test blood sugar(s) 1 times daily. Dx: Type 2 DM - Controlled E11.9 Insulin: No - COMPOUNDED PRESCRIPTION Nasal mask for CPAP and any other necessary supplies such as tubing #1 G47.33 MIKHAIL (obstructive sleep apnea) (primary encounter diagnosis) - COMPOUNDED PRESCRIPTION Mask (per patient preference) optional chin strap (if indicated) , filters, tubing, humidifier and lifetime supplies. Dx. MIKHAIL G47.33 - COMPOUNDED PRESCRIPTION cpap supplies, including mask. DX: MIKHAIL - COMPOUNDED PRESCRIPTION Initiate CPAP @ 11 cm of water with humidification. EPR setting of 3. Mask (per patient preference) Mirage FX wide was used during study. Chin strap (if indicated) tubing, filters, humidifier and lifetime supplies. Dx. Central Sleep Apnea 327.2 Problem List As Of Date 04/25/2024 Noted Resolved Special screening for malignant neoplasms, colo*08/07/2008 Class: Chronic Cervical radiculitis [M54.12] 10/19/2010 Tinnitus, right [H93.11] 10/19/2010 MIKHAIL (obstructive sleep apnea) [G47.33] 04/11/2012 Acute appendicitis with localized peritonitis [*01/18/2016 01/02/2023 Elevated blood pressure reading without diagnos*03/28/2018 Ganglion cyst [M67.40] 03/28/2018 Obesity, Class I, BMI 30-34.9 [E66.9] 03/28/2018 Vitamin D deficiency [E55.9] 01/02/2023 Diabetes mellitus type 2, controlled, without c*01/02/2023 Central sleep apnea [G47.31] 04/18/2024 Encounter Status:Closed by PATTI DREW on 04/25/24 [facility] CNOVon 04-18-2024 CNOV Office Visit (SLEWST ) -- TRESA MUÑOZ ([id number]) 1970 M Date Time Provider Department 04/18/24 8:00 AM JH COWAN During your visit today, we recorded the following information about you: Pulse Respiration Blood pressure Weight 86/minute 14/minute 126/86 92.5 kg Height 1.88 m Jh CowanHARRY.MOVING PICTURE OPERATOR 04/18/2024 1:39 PM Signed [facility] Follow up/ Established patient visit Date of last visit : 01/14/2024 The following Impression/Plan was copied and pasted from the patient's last [facility] visit on 01/14/24: ASSESSMENT/PLAN: 1. CSA (central sleep apnea) - ICD9: 780.57, ICD10: G47.31 (primary diagnosis) 2. MIKHAIL (obstructive sleep apnea) - ICD9: 327.23, ICD10: G47.33 Patient with history of CSA/MIKHAIL on prior sleep studies. Now reporting congestion at night, non restorative sleep and other symptoms above including those witnessed by - tossing and turning all night long if not using, and getting worse even with use. Review of PAP data download suggest not using PAP enough, but also concern for elevated AHI. At this point, feel patient needs an updated titration to determine appropriate PAP setting and furthermore, if central events are now worse, may need bilevel or bilevel with backup rate or even ASV. He is requesting titration be performed at [facility]. Order paced. Advised pt not to drive or operate heavy machinery if sleepy. Encouraged continued use of his PAP for now and explained need to clean (not using an ozone fish cleaner) and replace equipment regularly. 3. RLS (restless legs syndrome) - ICD9: 333.94, ICD10: G25.81 Possible that discomfort in legs in fact represents RLS which could contribute to sleep disruptions. He is not wanting lab work today due to cost, but will ask Dr. Noland to add Ferritin and Fe/TIBC lab to next annual labs for patient. In meantime will place on gabapentin 300mg QHS to see if any improvement in leg discomfort prior to going to bed and tossing and turning once in bed. SE and ADRs d/w pt. Pt agrees with plan. Edouard Ramires MD Here for follow up for discussion of PAP titration study which was done at [facility]. Dr Ramires ordered CPAP titration to start at 9 cmH2O with low threshold to transition to bilevel PAP. His apnea wasn't controlled yet he wasn't transitioned to biPAP. CSA and MIKHAIL diagnosed by PSG in 2011. At that time a titration study showed the CPAP 11 cmH2O effectively controlled his mixed sleep apnea. However at his appointment in 12/[address] Ramires it was determined that CPAP 11 cmH2O was no longer effective--download revealed residual AHI of 17.8. He hasn't been able to use CPAP since he doesn't tolerate the replacement [employer] device. He works second shift. 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 Coughs if he lies down supine so typically sleeps on right side. SLEEP APNEA Sleep apnea type : MIKHAIL, and CSA Most Recent Apnea-Hypopnea Index (AHI): 71 Treatment : PAP therapy DME: has [facility] now but requests switch to [facility] PAP History: Uses not currently using Current PAP settin cm H2O. Difficulties with CPAP: Yes: doesn't tolerate the replacement device from [employer] -- ---- PATIENT-ENTERED QUESTIONNAIRE SLEEP SCORES 04/18/2024 Sleep Questions Reason for visit: Sleep apnea Accidents or near accidents due to drowsy drivin 01/14/2024 04/18/2024 [place] Sleepiness Scale Score 9 (No clinically significant daytime sleepiness) 6 (No clinically significant daytime sleepiness) 01/14/2024 04/18/2024 PROMIS CAT Sleep Disturbance PROMIS Sleep Disturbance T-Score 58 (mild) 50 (within normal limits) PROMIS Sleep Disturbance Percentile 21 50 01/14/2024 Insomnia Severity Index Score 12 01/14/2024 04/18/2024 PHQ-9 Score 2 2 01/02/2023 11/01/2023 04/18/2024 PROMIS Global Health - (T-Scores - the mean of general population = 50. Five points is a clinically meaningful difference.) Physical T-Score 54.1 54.1 54.1 Mental T-Score 56 53.3 48.3 ALLERGIES Allergen Reactions Amoxil [Amoxicillin] Rash Animal Dander Intolerance nasal congestion Ketoconazole Rash blisters CURRENT MEDICATIONS: gabapentin (NEURONTIN) 300 mg capsule Take 1 capsule after arriving home from work or 1 hour before bedtime. Blood-Glucose Sensor (FREESTYLE WYATT 3 SENSOR) benjy Apply new sensor every fourteen (14) days to upper arm. flash glucose sensor (FREESTYLE WYATT 2 SENSOR) kit Apply new sensor every fourteen (14) days to upper arm. fluconazole (DIFLUCAN) 150 mg tablet I tab by mouth every 3 days until gone nystatin (MYCOSTATIN) cream Apply 1 application to affected area two times a day. metFORMIN ER (GLUCOPHAGE XR) 500 mg 24 hr tablet Take 4 tablets by mouth once daily. lutein-zeaxanthin 25 (more content not included)... Normal [facility] 04-16-2024 [facility] Telephone (JOEL) -- TRESA MUOÑZ ([id number]) 1970 M Date Time Provider Department 04/16/24 EDOUARD RAMIRES JR During your visit today, we recorded the following information about you: Luis Felipe Rosa RN 04/16/2024 9:22 AM Signed reports patient had a sleep study done in December, and has still not heard back from Dr. Ramires, about the results. [facility] and informed provider waiting on reply from [facility]. reports they were not aware patient was suppose to f/u with Raphael Cowan to review results, no one told them this. Asking what are they suppose to do now? Reports patient has not been able to use his CPAP because there's too much pressure, which is why they had to have the sleep study done. asking if doctor can refill patient's gabapentin? Has 5 pills left. Pended. Please advise and phone with reply: [phone] Edouard Ramires Jr., MD 04/16/2024 2:41 PM Signed Pt's AHI was not normalized during sleep study. The study was not run as requested. Specifically: Pt with prior study at [facility] showing CSA, but titration normalized on 11 cmH2O. Did great, but now symptomatic and AHI elevated on PAP data download. Please start on 9 cmH2O. Transition to bilevel and/or bilevel with BUR if needed for centrals. Please also mask fit pt prior to the study. Study started at 7 cmH2O. At 9 cmH2O, pt has frequent central apneas. Bilevel was never initiated. Please inform patient that may need additional testing. Please inform [facility] of pt information and concerns. Patient should still have follow up with Ema Cowan CNP. MD Camryn Moran Rebecca, APRN.MOVING PICTURE OPERATOR 04/16/2024 4:24 PM Signed Gabapentin refilled That's fine to put him in my schedule PDMP website checked and validated. All prescriptions have been APPROPRIATELY filled. No suspicious activity was identified. 04/16/2024 by Jh Cowan APRN.MOVING PICTURE OPERATOR Allergies As of Date: 04/16/2024 Noted Allergy Reaction AMOXIL (AMOXICILLIN) 11/16/2014 2 - Rash ANIMAL DANDER 03/06/2012 5 - Intolerance Comments: nasal congestion KETOCONAZOLE 01/02/2023 2 - Rash Comments: blisters Date Reviewed: 01/14/2024 Reviewed by: Edouard Ramires Jr., MD - Fully Assessed Reason for Visit: Patient Question [6645] Visit Diagnosis:RLS (restless legs syndrome) [G25.81] Order(s):gabapentin (NEURONTIN) 300 mg capsuleTake 1 capsule after arriving home from work or 1 hour before bedtime.Disp: 30 capsuleRfl: 2 Prescriptions as of 04/18/2024 - gabapentin (NEURONTIN) 300 mg capsule Take 1 capsule after arriving home from work or 1 hour before bedtime. - Blood-Glucose Sensor (FREESTYLE WYATT 3 SENSOR) benjy Apply new sensor every fourteen (14) days to upper arm. - flash glucose sensor (FREESTYLE WYATT 2 SENSOR) kit Apply new sensor every fourteen (14) days to upper arm. - fluconazole (DIFLUCAN) 150 mg tablet I tab by mouth every 3 days until gone - nystatin (MYCOSTATIN) cream Apply 1 application to affected area two times a day. - metFORMIN ER (GLUCOPHAGE XR) 500 mg 24 hr tablet Take 4 tablets by mouth once daily. - lutein-zeaxanthin 25-5 mg cap Take 1 capsule by mouth once daily. - turmeric 400 mg cap Take 1 capsule by mouth once daily. - VITAMIN A ORAL Take by mouth. - loratadine 10 mg cap Take by mouth. - MEDICATION, NON-DATABASE Billberry and Lion's Eric - aspirin, enteric coated (ASPIRIN, ENTERIC COATED) 81 mg EC tablet Take 81 mg by mouth once daily. - MAGNESIUM ORAL Take by mouth. - cholecalciferol, vitamin D3, (VITAMIN D3 ORAL) Take by mouth. - ZINC ORAL Take by mouth. - vit C/E/Zn/coppr/lutein/zeaxan (PRESERVISION AREDS-2 ORAL) Take by mouth. - CINNAMON - ascorbic acid (VITAMIN C ORAL) Take by mouth. - Lancets lancets Test blood sugar(s) 1 times daily. Dx: Type 2 DM - Controlled E11.9 Insulin: No - blood sugar diagnostic (BLOOD GLUCOSE TEST) test strip Test blood sugar(s) 1 times daily. Dx: Type 2 DM - Controlled E11.9 Insulin: No - COMPOUNDED PRESCRIPTION Nasal mask for CPAP and any other necessary supplies such as tubing #1 G47.33 MIKHAIL (obstructive sleep apnea) (primary encounter diagnosis) - COMPOUNDED PRESCRIPTION Mask (per patient preference) optional chin strap (if indicated) , filters, tubing, humidifier and lifetime supplies. Dx. MIKHAIL G47.33 - COMPOUNDED PRESCRIPTION cpap supplies, including mask. DX: MIKHAIL - COMPOUNDED PRESCRIPTION Initiate CPAP @ 11 cm of water with humidification. EPR setting of 3. Mask (per patient preference) Mirage FX wide was used during study. Chin strap (if indicated) tubing, filters, humidifier and lifetime supplies. Dx. Central Sleep Apnea 327.2 Problem List As Of Date 04/16/2024 Noted Resolved Special screening for malignant neoplasms, colo*08/07/2008 Class: Chronic Cervical radiculitis [M54.12] 10/19/2010 Tinni (more content not included)... Normal [facility] C-REACTIVE PROTEIN (CRP)on 09-03-2022 CRP [Mass/Vol] <0.9 mg/dL [facility] CK CREATINE KINASEon 023 CK [Catalytic activity/Vol] 97 U/L 51 - 298 U/L [facility] ESR Westergren method (Bld) [Velocity]on 07-02-2023 ESR (Bld) [Velocity] 2 mm/h 0 - 15 mm/hr [facility] Urinalysis complete panel (U )on 07-02-2023 Bacteria LM.HPF (Urine sed) [#/Area] Negative Negative /HPF [facility] Bilirubin Ql (U) Negative Negative [facility] Clarity (Unsp spec) Clear Clear [facility] Color (U) Yellow Yellow [facility] Epithelial cells LM.HPF (Urine sed) [#/Area] None Seen [facility] Glucose Test strip (U) [Mass/Vol] Trace Abnormal Negative [facility] Hemoglobin Ql (U) Negative Negative [facility] Hyaline casts (Urine sed) [#/Area] 0 /[LPF] 0 /LPF [facility] Ketones Ql (U) Negative Negative [facility] Leukocyte esterase Test strip Ql (U) Negative Negative [facility] Nitrite Ql (U) Negative Negative [facility] pH (U) 6.0 [pH] <8.5 [facility] Protein (U) [Mass/Vol] Negative Negative [facility] RBC LM.HPF (Urine sed) [#/Area] 0-2 /HPF 0-2 /HPF [facility] Specific gravity (U) [Rel density] 1.025 1.005 - 1.030 [facility] Urobilinogen Ql (U) 0.2 EU/dL 0.2-1.0 EU/dL [facility] WBC LM.HPF (Urine sed) [#/Area] 0-5 /HPF 0-5 /HPF [facility] Vital Signs Date Time Vital Sign Value Performing Clinician Nickolasi sung 01-22-2025 01:00-0400 Diastolic blood pressure 93 mm[Hg] Dr. Edouard Noland MD Work Phone: [facility] 01-22-2025 01:00-0400 Heart rate 88 /min Dr. Edouard Noland MD Work Phone: [facility] 01-22-2025 01:00-0400 Respiratory rate 14 /min Dr. Edouard Noladn MD Work Phone: [facility] 01-22-2025 01:00-0400 SaO2% (BldA) [Mass fraction] 97 % Dr. Edouard Noland MD Work Phone: [facility] 01-22-2025 01:00-0400 Systolic blood pressure 141 mm[Hg] Dr. Edouard Noland MD Work Phone: [facility] 01-21-2025 22:19-0400 Body height 187.[address] Edouard Noland MD Work Phone: [facility] 01-21-2025 22:19-0400 Body mass index (BMI) [Ratio] 25.1 kg/m2 Dr. Edouard Noland MD Work Phone: [facility] 01-21-2025 22:19-0400 Body temperature 98.6 [degF] Dr. Edouard Noland MD Work Phone: [facility] 01-21-2025 22:19-0400 Body weight 88.[address] Edouard Noland MD Work Phone: [facility] 01-12-2025 10:41-0400 Body mass index (BMI) [Ratio] 25.29 kg/m2 Edouard Noland MD Work Phone: [facility] 01-12-2025 10:41-0400 Body weight 89.36 kg Edouard Noland MD Work Phone: [facility] 01-12-2025 10:41-0400 Diastolic blood pressure 82 mm[Hg] Edouard Noland MD Work Phone: [facility] 01-12-2025 10:41-0400 Heart rate 96 /min Edouard Noland MD Work Phone: [facility] 01-12-2025 10:41-0400 SaO2% (BldA) [Mass fraction] 97 % Edouard Noland MD Work Phone: [facility] 01-12-2025 10:41-0400 Systolic blood pressure 122 mm[Hg] Edouard Noland MD Work Phone: [facility] 09-01-2024 11:05-0500 Body mass index (BMI) [Ratio] 26.47 kg/m2 Jh Camryn IMMIGRATION PARALEGAL.MOVING PICTURE OPERATOR Work Phone: [facility] 09-01-2024 11:05-0500 Body weight 93.53 kg Jh Camryn IMMIGRATION PARALEGAL.MOVING PICTURE OPERATOR Work Phone: [facility] 09-01-2024 11:05-0500 Diastolic blood pressure 83 mm[Hg] Jh Camryn IMMIGRATION PARALEGAL.MOVING PICTURE OPERATOR Work Phone: [facility] 09-01-2024 11:05-0500 Heart rate 83 /min Jh Camryn IMMIGRATION PARALEGAL.MOVING PICTURE OPERATOR Work Phone: [facility] 09-01-2024 11:05-0500 Respiratory rate 18 /min Jh Camryn IMMIGRATION PARALEGAL.MOVING PICTURE OPERATOR Work Phone: [facility] 09-01-2024 11:05-0500 SaO2% (BldA) [Mass fraction] 98 % Jh Camryn IMMIGRATION PARALEGAL.MOVING PICTURE OPERATOR Work Phone: [facility] 09-01-2024 11:05-0500 Systolic blood pressure 122 mm[Hg] Jh Camryn IMMIGRATION PARALEGAL.MOVING PICTURE OPERATOR Work Phone: [facility] 07-07-2024 08:27-0500 Body mass index (BMI) [Ratio] 26.19 kg/m2 Bobbi Haagen IMMIGRATION PARALEGAL.MOVING PICTURE OPERATOR Work Phone: [facility] 07-07-2024 08:27-0500 Body weight 92.53 kg Bobbi Haagen IMMIGRATION PARALEGAL.MOVING PICTURE OPERATOR Work Phone: [facility] 07-07-2024 08:27-0500 Diastolic blood pressure 82 mm[Hg] Bobbi Haagen IMMIGRATION PARALEGAL.MOVING PICTURE OPERATOR Work Phone: [facility] 07-07-2024 08:27-0500 Heart rate 80 /min Bobbi Haagen IMMIGRATION PARALEGAL.MOVING PICTURE OPERATOR Work Phone: [facility] 07-07-2024 08:27-0500 Respiratory rate 16 /min Bobbi Haagen IMMIGRATION PARALEGAL.MOVING PICTURE OPERATOR Work Phone: [facility] 07-07-2024 08:27-0500 SaO2% (BldA) [Mass fraction] 98 % Bobbi Hart IMMIGRATION PARALEGAL.MOVING PICTURE OPERATOR Work Phone: [facility] 07-07-2024 08:27-0500 Systolic blood pressure 116 mm[Hg] Bobbi Hart IMMIGRATION PARALEGAL.MOVING PICTURE OPERATOR Work Phone: [facility] 04-18-2024 08:07-0400 Body height 188 cm Jh Camryn IMMIGRATION PARALEGAL.MOVING PICTURE OPERATOR Work Phone: [facility] 04-18-2024 08:07-0400 Body mass index (BMI) [Ratio] 26.18 kg/m2 Jh Camryn IMMIGRATION PARALEGAL.MOVING PICTURE OPERATOR Work Phone: [facility] 04-18-2024 08:07-0400 Body weight 92.5 kg Jh Camryn IMMIGRATION PARALEGAL.MOVING PICTURE OPERATOR Work Phone: [facility] 04-18-2024 08:07-0400 Diastolic blood pressure 86 mm[Hg] Jh Camryn IMMIGRATION PARALEGAL.MOVING PICTURE OPERATOR Work Phone: [facility] 04-18-2024 08:07-0400 Heart rate 86 /min Jh Camryn IMMIGRATION PARALEGAL.MOVING PICTURE OPERATOR Work Phone: [facility] 04-18-2024 08:07-0400 Respiratory rate 14 /min Jh Camryn IMMIGRATION PARALEGAL.MOVING PICTURE OPERATOR Work Phone: [facility] 04-18-2024 08:07-0400 SaO2% (BldA) [Mass fraction] 96 % Jh Camryn IMMIGRATION PARALEGAL.MOVING PICTURE OPERATOR Work Phone: [facility] 04-18-2024 08:07-0400 Systolic blood pressure 126 mm[Hg] Jh Camryn IMMIGRATION PARALEGAL.MOVING PICTURE OPERATOR Work Phone: [facility] 01-14-2024 09:29-0400 Body mass index (BMI) [Ratio] 25.94 kg/m2 Edouard Ramires Jr., MD Work Phone: [facility] 01-14-2024 09:29-0400 Body weight 91.63 kg Edouard Ramires Jr., MD Work Phone: [facility] 01-14-2024 09:29-0400 Diastolic blood pressure 72 mm[Hg] Edouard Ramires Jr., MD Work Phone: [facility] 01-14-2024 09:29-0400 Heart rate 83 /min Edouard Ramires Jr., MD Work Phone: [facility] 01-14-2024 09:29-0400 Respiratory rate 16 /min Edouard Ramires Jr., MD Work Phone: [facility] 01-14-2024 09:29-0400 SaO2% (BldA) [Mass fraction] 97 % Edouard Ramires Jr., MD Work Phone: [facility] 01-14-2024 09:29-0400 Systolic blood pressure 128 mm[Hg] Edouard Ramires Jr., MD Work Phone: [facility] 01-04-2024 13:05-0400 Body mass index (BMI) [Ratio] 26.19 kg/m2 Bobbi Hart IMMIGRATION PARALEGAL.MOVING PICTURE OPERATOR Work Phone: [facility] 01-04-2024 13:05-0400 Body weight 92.53 kg Bobbi Hashonna IMMIGRATION PARALEGAL.MOVING PICTURE OPERATOR Work Phone: [facility] 01-04-2024 13:05-0400 Diastolic blood pressure 78 mm[Hg] Bobbi Haagen IMMIGRATION PARALEGAL.MOVING PICTURE OPERATOR Work Phone: [facility] 01-04-2024 13:05-0400 Heart rate 83 /min Bobbi Haagen IMMIGRATION PARALEGAL.MOVING PICTURE OPERATOR Work Phone: [facility] 01-04-2024 13:05-0400 Respiratory rate 16 /min Bobbi Haagen IMMIGRATION PARALEGAL.MOVING PICTURE OPERATOR Work Phone: [facility] 01-04-2024 13:05-0400 SaO2% (BldA) [Mass fraction] 98 % Bobbi Hart IMMIGRATION PARALEGAL.MOVING PICTURE OPERATOR Work Phone: [facility] 01-04-2024 13:05-0400 Systolic blood pressure 122 mm[Hg] Bobbi Haagen IMMIGRATION PARALEGAL.MOVING PICTURE OPERATOR Work Phone: [facility] 11-01-2023 08:59-0400 Body temperature 97 [degF] NA Jordan PA-C Work Phone: [facility] 11-01-2023 08:59-0400 Body weight 95.62 kg NA Jordan PA-C Work Phone: [facility] 11-01-2023 08:59-0400 Diastolic blood pressure 78 mm[Hg] NA Jordan PA-C Work Phone: [facility] 11-01-2023 08:59-0400 Heart rate 86 /min NA Jordan PA-C Work Phone: [facility] 11-01-2023 08:59-0400 Respiratory rate 16 /min NA Jordan PA-C Work Phone: [facility] 11-01-2023 08:59-0400 SaO2% (BldA) [Mass fraction] 97 % NA Jordan PA-C Work Phone: [facility] 11-01-2023 08:59-0400 Systolic blood pressure 114 mm[Hg] NA Jordan PA-C Work Phone: [facility] 07-02-2023 11:51-0500 Body weight 96.62 kg Bobbi Haagen IMMIGRATION PARALEGAL.MOVING PICTURE OPERATOR Work Phone: [facility] 07-02-2023 11:51-0500 Diastolic blood pressure 82 mm[Hg] Bobbi Haagen IMMIGRATION PARALEGAL.MOVING PICTURE OPERATOR Work Phone: [facility] 07-02-2023 11:51-0500 Heart rate 88 /min Bobbi Haagen IMMIGRATION PARALEGAL.MOVING PICTURE OPERATOR Work Phone: [facility] 07-02-2023 11:51-0500 Respiratory rate 16 /min Bobbi Haagen IMMIGRATION PARALEGAL.MOVING PICTURE OPERATOR Work Phone: [facility] 07-02-2023 11:51-0500 SaO2% (BldA) [Mass fraction] 97 % Bobbi Haagen IMMIGRATION PARALEGAL.MOVING PICTURE OPERATOR Work Phone: [facility] 07-02-2023 11:51-0500 Systolic blood pressure 124 mm[Hg] Bobbi Hart IMMIGRATION PARALEGAL.MOVING PICTURE OPERATOR Work Phone: [facility] 01-02-2023 13:09-0400 Diastolic blood pressure 90 mm[Hg] Edouard Noland MD Work Phone: [facility] 01-02-2023 13:09-0400 Systolic blood pressure 140 mm[Hg] Edouard Noland MD Work Phone: [facility] 01-02-2023 12:51-0400 Body height 188.2 cm Edouard Noland MD Work Phone: [facility] 01-02-2023 12:51-0400 Body weight 93.44 kg Edouard Noland MD Work Phone: [facility] 01-02-2023 12:51-0400 Heart rate 90 /min Edouard Noland MD Work Phone: [facility] 01-02-2023 12:51-0400 Respiratory rate 16 /min Edouard Noland MD Work Phone: [facility] 01-02-2023 12:51-0400 SaO2% (BldA) [Mass fraction] 97 % Edouard Noland MD Work Phone: [facility] Encounters Encounter Date Encounter Type Care Provider Facility Start: 02-25-2025 End: 02-25-2025 Telephone encounter Edouard Noland MD Work Phone: [facility] [place] Comment on above: Patient Update Start: 02-23-2025 ambulatory EDOUARD NOLAND Facility [facility] Start: 02-23-2025 End: 02-23-2025 Subsequent hospital visit by physician Maik [facility] [place] [facility] Work Phone: Radiology Comment on above: Bacterial pneumonia [J15.9] Start: 02-16-2025 End: 02-16-2025 E-mail encounter from caregiver Noble Lawson [facility] Work Phone: [facility] Start: 02-16-2025 End: 02-16-2025 Patient encounter procedure Noble Lawson [facility] Work Phone: [facility] Comment on above: Trulicity Start: 02-11-2025 End: 02-12-2025 Follow-up encounter Edouard Noland MD Work Phone: [facility] [place] Start: 02-10-2025 End: 02-10-2025 ambulatory EDOUARD NOLAND Facility:[facility] Start: 02-03-2025 ambulatory EDOUARD NOLAND Facility :[id number] Start: 02-03-2025 End: 02-03-2025 Subsequent hospital visit by physician [facility] Work Phone: [facility] Comment on above: Osteopenia of multip le sites [M85.89] Start: 02-02-2025 End: 02-02-2025 Telephone encounter Edouard Noland MD Work Phone: Family [facility] [place] Comment on above: Patient Question Start: 01-28-2025 End: 01-28-2025 ambulatory Edouard Noland MD Work Phone: Family [facility] [place] Comment on above: Kayce 3 sensor Start: 01-28-2025 End: 02-03-2025 Telephone encounter Edouard Noland MD Work Phone: [facility] [place] Comment on above: Results Start: 01-22-2025 End: 01-23-2025 Follow-up encounter Adrienne Castro APRN.MOVING PICTURE OPERATOR Work Phone: [facility] [place] Start: 01-21-2025 End: 01-22-2025 Emergency department patient visit Dr. Edouard Noland MD Work Phone: -Emergency Department Work Phone: Start: 01-21-2025 End: 01-21-2025 ambulatory EDOUARD NOLAND Facility:[facility] Start: 01-21-2025 End: 01-21-2025 Patient encounter procedure Noble Lawson [facility] Work Phone: [facility] Comment on above: Controlled type 2 di abetes mellitus without complication, without long-term current use of insulin (HCC) (Primary Dx) Start: 01-21-2025 End: 01-21-2025 Telemedicine consultation with patient Noble Lawson [facility] Work Phone: [facility] Start: 01-19-2025 ambulatory EDOUARD NOLAND Facility :[facility] Start: 01-19-2025 End: 01-19-2025 Subsequent hospital visit by physician [facility] Work Phone: Radiology Comment on above: Elevated liver enzym es [R74.8] Start: 01-16-2025 End: 01-16-2025 Telephone encounter Edouard Noland MD Work Phone: [facility] [place] Comment on above: Results Start: 01-13-2025 End: 01-16-2025 Telephone encounter Edouard Noland MD Work Phone: [facility] [place] Comment on above: Insurance Authorizat ion Results Results (Abnormal la bs. ) Start: 01-13-2025 End: 01-13-2025 ambulatory EDOUARD NOLAND Facility:[facility] Start: 01-12-2025 End: 01-12-2025 Patient encounter procedure Edouard Noland MD Work Phone: [facility] [place] Comment on above: Elevated blood press ure reading without diagnosis of hypertension (Primary Dx); Controlled type 2 diabetes mellitus without complication, without long-term current use of insulin (HCC); Paresthesia; Fatigue, unspecified type; Encounter for screening examination for other mental health and behavioral disorders; MIKHAIL (obstructive sleep apnea); Vitamin D deficiency; Erectile dysfunction, unspecified erectile dysfunction type; Osteopenia of multiple sites; Screening for depression; Screening for prostate cancer; Disorder of bone and cartilage Start: 01-12-2025 End: 01-12-2025 ambulatory Edouard Noland MD Work Phone: [facility] [place] Comment on above: Diabetic Shot Start: 10-06-2024 End: 10-06-2024 ambulatory EDOUARD NOLAND Facility:[facility] Start: 10-06-2024 End: 10-06-2024 Patient encounter procedure Noble Lawson [facility] Work Phone: [facility] Comment on above: Controlled type 2 di abetes mellitus without complication, without long-term current use of insulin (HCC) (Primary Dx) Start: 10-06-2024 End: 10-06-2024 Telemedicine consultation with patient Noble Lawson [facility] Work Phone: [facility] Start: 09-20-2024 End: 09-22-2024 Refill Edouard Noland MD Work Phone: [facility] Comment on above: Refill Request Start: 09-01-2024 End: 09-01-2024 Patient encounter procedure Jh Cowan APRN.MOVING PICTURE OPERATOR Work Phone: Neurology Comment on above: Central sleep apnea (Primary Dx); MIKHAIL (obstructive sleep apnea); Uses bilevel positive airway pressure (BPAP) ventilation at home; RLS (restless legs syndrome); PLMD (periodic limb movement disorder) Start: 09-01-2024 End: 09-01-2024 [facility] Start: 08-13-2024 End: 08-13-2024 ambulatory [facility] Facility:[facility] Start: 08-11-2024 End: 08-11-2024 ambulatory [facility] Facility:[facility] Start: 07-29-2024 End: 07-31-2024 Telephone encounter Bobbi Hart APRN.CNP Work Phone: [facility] Comment on above: Results Start: 07-25-2024 End: 07-25-2024 [facility] Facility:[facility] Start: 07-07-2024 End: 07-07-2024 Office outpatient visit 25 minutes Bobbi Hart APRN.MOVING PICTURE OPERATOR Work Phone: [facility] Comment on above: Controlled type 2 di abetes mellitus without complication, without long-term current use of insulin (HCC) (Primary Dx); Vitamin D deficiency; Hypertriglyceridemia; Borderline abnormal thyroid function test; Screening for lipid disorders Start: 07-07-2024 End: 07-07-2024 ambulatory [facility] Facility:[facility] Start: 05-27-2024 End: 10-13-2024 Telephone encounter Edouard Ramires MD Work Phone: Neurology Comment on above: Results Start: 05-08-2024 End: 05-08-2024 ambulatory Jh Cowan NP Facility:[facility] Start: 04-25-2024 End: 04-25-2024 Telephone encounter Jh Cowan APRN.MOVING PICTURE OPERATOR Work Phone: Neurology Comment on above: Fax last OV note and Sleep Study Order Start: 04-21-2024 End: 04-21-2024 ambulatory EDOUARD NOLAND Facility:[facility] Start: 04-21-2024 End: 04-21-2024 Patient encounter procedure Noble Lawson [facility] Work Phone: [facility] Comment on above: Controlled type 2 di abetes mellitus without complication, without long-term current use of insulin (HCC) (Primary Dx) Start: 04-21-2024 End: 04-21-2024 Telemedicine consultation with patient Noble Lawson [facility] Work Phone: [facility] Start: 04-18-2024 End: 04-18-2024 ambulatory JH COWAN Facility:[facility] Start: 04-18-2024 End: 04-18-2024 Patient encounter procedure Jh Cowan APRN.MOVING PICTURE OPERATOR Work Phone: Neurology Comment on above: Central sleep apnea (Primary Dx); MIKHAIL (obstructive sleep apnea) Start: 04-16-2024 End: 04-18-2024 Telephone encounter Edouard Ramires MD Work Phone: Neurology Comment on above: Patient Question Start: 04-10-2024 End: 04-11-2024 ambulatory Edouard Ramires MD Work Phone: Neurology Comment on above: Sleep Study Start: 02-19-2024 Telephone encounter Jh de la rosa APRN.MOVING PICTURE OPERATOR Work Phone: Neurology Comment on above: Patient Question/tit ration study Start: 02-09-2024 End: 02-09-2024 ambulatory Edouard Ramires Facility:[facility] Start: 01-16-2024 End: 01-16-2024 [facility] Comment on above: Controlled type 2 di abetes mellitus without complication, without long-term current use of insulin (HCC) (Primary Dx) Start: 01-16-2024 End: 01-16-2024 Telemedicine consultation with patient Noble Lawson [facility] Work Phone: [facility] Start: 01-14-2024 Telephone encounter Edouard Ramires MD Work Phone: Neurology Comment on above: Orders Start: 01-14-2024 End: 01-14-2024 Patient encounter procedure Edouard Ramires MD Work Phone: Neurology Comment on above: CSA (central sleep a pnea) (Primary Dx); MIKHAIL (obstructive sleep apnea); RLS (restless legs syndrome) Start: 01-04-2024 End: 01-04-2024 Office outpatient visit 25 minutes Bobbi Hart APRN.CNP Work Phone: [facility] [place] Comment on above: Controlled type 2 di abetes mellitus without complication, without long-term current use of insulin (HCC) (Primary Dx); Muscle cramps; Weakness of lower extremity, unspecified laterality; Vitamin D deficiency; Borderline abnormal thyroid function test; Elevated blood pressure reading without diagnosis of hypertension Start: 11-12-2023 ambulatory Luis Felipe galarza PA-C Work Phone: [facility] [place] Comment on above: Rash, spots Start: 11-01-2023 End: 11-01-2023 Patient encounter procedure Luis Felipe Jordan PA-C Work Phone: [facility] [place] Comment on above: Tinea corporis (Prim colby Dx) Start: 10-30-2023 Telephone encounter Edouard Noland MD Work Phone: [facility] [place] Comment on above: need rx for CPAP ite ms Start: 10-22-2023 End: 10-22-2023 ambulatory Noble Lawson [facility] Work Phone: [facility] Comment on above: Controlled type 2 di abetes mellitus without complication, without long-term current use of insulin (HCC) (Primary Dx) Start: 10-22-2023 End: 10-22-2023 Telemedicine consultation with patient Noble Lawson [facility] Work Phone: [facility] [place] Start: 09-10-2023 End: 09-10-2023 ambulatory Noble Lawson [facility] Work Phone: [facility] Comment on above: Controlled type 2 di abetes mellitus without complication, without long-term current use of insulin (HCC) (Primary Dx) Start: 09-10-2023 End: 09-10-2023 Telemedicine consultation with patient Noble Lawson [facility] Work Phone: [facility] [place] Start: 09-06-2023 Refill Edouard Noland MD Work Phone: Family [facility] [place] Comment on above: Refill Request Start: 07-02-2023 End: 07-02-2023 Office outpatient visit 25 minutes Bobbi Hart APRN.[facility] Work Phone: [facility] [place] Comment on above: Controlled type 2 di abetes mellitus without complication, without long-term current use of insulin (HCC) (Primary Dx); MIKHAIL (obstructive sleep apnea); Muscle weakness; Hypertriglyceridemia; Borderline abnormal thyroid function test Start: 06-19-2023 ambulatory Shane Rand [facility] Work Phone: [facility] Comment on above: Metformin Start: 06-19-2023 Telephone encounter Shane Rand [facility] Work Phone: [facility] Comment on above: Patient Question Start: 02-05-2023 End: 02-05-2023 ambulatory Shane Rand [facility] Work Phone: [facility] Comment on above: Controlled type 2 di abetes mellitus without complication, without long-term current use of insulin (HCC) (Primary Dx) Start: 02-05-2023 End: 02-05-2023 Telemedicine consultation with patient Shane Rand [facility] Work Phone: [facility] [place] Start: 01-16-2023 Telephone encounter Edouard Noland MD Work Phone: [facility] [place] Comment on above: Patient Question; Or ders Start: 01-08-2023 End: 01-08-2023 ambulatory Shane Rand [facility] Work Phone: [facility] Comment on above: Controlled type 2 di abetes mellitus without complication, without long-term current use of insulin (HCC) (Primary Dx); Medication management Start: 01-08-2023 End: 01-08-2023 Telemedicine consultation with patient Shane Rand [facility] Work Phone: [facility] [place] Start: 01-02-2023 End: 01-02-2023 Patient encounter procedure Edouard Noland MD Work Phone: [facility] [place] Comment on above: Well adult exam (Lise zackary Dx); Need for vaccination; Vitamin D deficiency; Controlled type 2 diabetes mellitus without complication, without long-term current use of insulin (HCC); Screening for colon cancer; Paresthesia; Chloe albicans infection Start: 01-02-2023 End: 01-02-2023 Patient encounter status Edouard Noland MD Work Phone: [facility] [place] Start: 12-12-2022 Telephone encounter Edouard Noland MD Work Phone: [facility] [place] Comment on above: Results Start: 12-06-2022 Telephone encounter Edouard Noland MD Work Phone: [facility] [place] Comment on above: Lab Orders Start: 11-20-2022 Telephone encounter Edouard Noland MD Work Phone: Family [facility] Procedures Date Procedure Procedure Detail Performing Clinician Start: 01-21-2025 End: 01-21-2025 Plain chest X-ray Dr. Edouard Noland MD Work Phone: Start: 01-21-[address] Edouard Noland MD Work Phone: Start: 01-12-2025 Adult depression scr eening assessment Edouard Noland MD Work Phone: Start: 03-19-2023 Colonoscopy Edouard Cho MD Work Phone: Plan of Treatment Date Care Activity Detail Author Start: 03-19-2033 Colonoscopy Colonoscopy [facility] Start: 03-19-2033 Colorectal Cancer Screening Colorectal Cancer Screening [facility] Start: 03-19-2033 Screening for malignant neoplasm of colon [facility] Start: 01-02-2033 Urine microalbumin profile [facility] Start: 12-08-2027 LIPID SCREEN LIPID SCREEN [facility] Start: 01-12-2026 Annual PCP Team Chronic Disease Visit Annual PCP Team Chronic Disease Visit [facility] Start: 01-12-2026 Anxiety Screening Anxiety Screening [facility] Start: 01-12-2026 Depression Screening Depression Screening [facility] Start: 01-12-2026 Diabetic foot examination Diabetic Foot Exam [facility] Start: 01-12-2026 Hepatitis B screening Urine Albumin:Creatinine Ratio [facility] Start: 01-12-2026 Pneumococcal Vaccine: 50+ (1 of 2 - PCV) Pneumococcal Vaccine: 50+ (1 of 2 - PCV) [facility] Comment on above: Postponed from 1991 (Declined at t his time) Start: 01-12-2026 Shingrix Vaccine (1 of 2) Shingrix Vaccine (1 of 2) [facility] Comment on above: Postponed from 2022 (Declined at t his time) Start: 12-07-2025 DIABETES SCREEN DIABETES SCREEN [facility] Start: 07-25-2025 Hepatitis B surface antibody level LDL Cholesterol [facility] Start: 07-14-2025 End: 10-13-2025 Hemoglobin A1c in Blood HEMOGLOBIN A1C Lab Routine Controlled type 2 diabetes mellitus without complication, without long-term current use of insulin (HCC) Expected: 07/14/2025, Expires: 10/13/2025 [facility] Comment on above: Expected: 07/14/2025, Expires: Start: 07-14-2025 Hemoglobin A1c measurement HbA1C [facility] Start: 07-14-2025 End: 07-14-2025 ambulatory 07/14/2025 9:30 AM EST Results Only [place] [facility] [address] [place] [address] [place] [facility] Start: 07-07-2025 Annual PCP Team Chronic Disease Visit Annual PCP Team Chronic Disease Visit [facility] Start: 07-07-2025 Anxiety Screening Anxiety Screening [facility] Comment on above: Postponed from 1990 (Declined at t his time) Start: 07-07-2025 Covid-19 Vaccine ( season) Covid-19 Vaccine ( season) [facility] Comment on above: Postponed from 03/30/2024 (Declined at t his time) Start: 07-07-2025 Hepatitis B Vaccine (1 of 3 - 19+ 3-dose series) Hepatitis B Vaccine (1 of 3 - 19+ 3-dose series) [facility] Comment on above: Postponed from 1991 (Declined at t his time) Start: 07-07-2025 Hepatitis C screening Hepatitis C Screening [facility] Comment on above: Postponed from 1990 (Declined at t his time) Start: 07-07-2025 HIV screening HIV Screening [facility] Comment on above: Postponed from 1990 (Declined at t his time) Start: 07-07-2025 Pneumococcal vaccination Pneumococcal Vaccine (1 of 2 - PCV) [facility] Comment on above: Postponed from 1978 (Declined at t his time) Start: 06-05-2025 End: 06-05-2025 Patient encounter procedure 06/05/2025 10:20 AM EST Office Visit Neurology [address] [place] [address] Edouard Ramires Jr., MD [address] [place] [address] 6 month follow up Neurology Comment on above: 6 month follow up Start: 03-30-2025 Influenza vaccination [facility] Start: 03-20-2025 End: 03-20-2025 Patient encounter procedure 03/20/2025 8:00 AM EDT Office Visit Endocrinology [address] [place] [address] Millicent Ellis MD [address] [address] Poisoning by vitamin D, undetermined intent, initial encounter [T45.2X4A] Endocrinology Comment on above: Poisoning by vitamin D, undetermined int ent, initial encounter [T45.2X4A] Start: 03-09-2025 End: 03-09-2025 Patient encounter procedure [facility] [place] Comment on above: 8 wk follow up 8 wk follow up (40mi n per [facility]) Start: 03-06-2025 End: 03-06-2025 Patient encounter procedure 03/06/2025 10:20 AM EDT Office Visit Neurology [address] [place] [address] Edouard Ramires Jr., MD [address] [facility] [place] [address] 6 month follow up Neurology Comment on above: 6 month follow up Start: 02-27-2025 End: 02-27-2025 Patient encounter procedure 02/27/2025 11:00 AM EDT Office Visit [facility] [place] [address] [facility] [place] [address] Edouard Noland MD [address] [place] [address] Hospital follow up Pneumonia [facility] Comment on above: Hospital follow up Pneumonia Start: 02-11-2025 End: 02-11-2026 Basic metabolic 2000 panel - Serum or Plasma BASIC METABOLIC PANEL Lab Routine Renal insufficiency Expected: 02/11/2025, Expires: 02/11/2026 [facility] Comment on above: Expected: 02/11/2025, Expires: 6 Start: 02-11-2025 End: 05-13-2025 CBC W Ordered Manual Differential panel - Blood PATHOLOGIST INTERPRETATION WITH CBC AND DIFF Lab Routine Renal insufficiency Hypercalcemia Expected: 02/11/2025, Expires: 05/13/2025 [facility] Comment on above: Expected: 02/11/2025, Expires: Start: 02-11-2025 End: 05-13-2025 Lactate dehydrogenase [Enzymatic activity/volume] in Serum or Plasma LACTATE DEHYDROGENASE Lab Routine Renal insufficiency Hypercalcemia Expected: 02/11/2025, Expires: 05/13/2025 [facility] Comment on above: Expected: 02/11/2025, Expires: 5 Start: 02-11-2025 End: 05-13-2025 PROTEIN ELECTROPHORESIS SERUM W/INTERP PROTEIN ELECTROPHORESIS SERUM W/INTERP Lab Routine Renal insufficiency Hypercalcemia Expected: 02/11/2025, Expires: 05/13/2025 [facility] Comment on above: Expected: 02/11/2025, Expires: Start: 02-11-2025 End: 05-13-2025 Urinalysis complete panel - Urine URINALYSIS, WITH MICROSCOPIC Lab Routine Renal insufficiency Expected: 02/11/2025, Expires: 05/13/2025 [facility] Comment on above: Expected: 02/11/2025, Expires: Start: 02-03-2025 End: 02-03-2025 Patient encounter procedure 02/03/2025 11:00 AM EDT Appointment [facility] [address] [place] [id number] Osteopenia of multiple sites [M85.89] [facility] Comment on above: Osteopenia of multiple sites [M85.89] Start: 01-28-2025 End: 04-29-2025 25-hydroxyvitamin D3 [Mass/volume] in Serum or Plasma VITAMIN D 25 HYDROXY Lab Routine Hypercalcemia Expected: 01/28/2025, Expires: 04/29/2025 [facility] Comment on above: Expected: 01/28/2025, Expires: Start: 01-28-2025 End: 04-29-2025 Basic metabolic 2000 panel - Serum or Plasma BASIC METABOLIC PANEL Lab Routine Hypercalcemia Expected: 01/28/2025, Expires: 04/29/2025 [facility] Comment on above: Expected: 01/28/2025, Expires: Start: 01-28-2025 End: 04-29-2025 Calcitriol [Mass/volume] in Serum or Plasma VITAMIN D1 25-DIHYDR Lab Routine Hypercalcemia Expected: 01/28/2025, Expires: 04/29/2025 [facility] Comment on above: Expected: 01/28/2025, Expires: Start: 01-28-2025 End: 04-29-2025 Parathyrin related protein [Moles/volume] in Serum or Plasma PTH RELATED PEPTIDE Lab Routine Hypercalcemia Expected: 01/28/2025, Expires: 04/29/2025 [facility] Work Phone: Comment on above: Expected: 01/28/2025, Expires: Start: 01-26-2025 Influenza vaccination Influenza Vaccine (#1) [place] Jessica oconnell Comment on above: Postponed from 03/30/2024 (Declined at t his time) Start: 01-23-2025 Hemoglobin A1c measurement HbA1C [facility] Start: 01-21-2025 End: 01-21-2025 [facility] Start: 01-21-2025 End: 01-21-2025 Patient encounter procedure 01/21/2025 1:00 PM EDT [facility] [address] [place], [place] [id number] [facility] [address] [place] [phone] DM f/up; CGM review [facility] Comment on above: DM f/up; CGM review Start: 01-13-2025 End: 04-14-2025 ALK PHOS ISOENZYM BL [facility] Comment on above: Expected: 01/13/2025, Expires: Start: 01-13-2025 End: 04-14-2025 Parathyrin related protein [Moles/volume] in Serum or Plasma [facility] Work Phone: Comment on above: Expected: 01/13/2025, Expires: Start: 01-12-2025 End: 04-13-2025 Cobalamin (Vitamin B12) [Mass/volume] in Serum or Plasma [facility] Comment on above: Expected: 01/12/2025, Expires: Start: 01-12-2025 End: 04-13-2025 Comprehensive metabolic 2000 panel - Serum or Plasma [facility] Work Phone: Comment on above: Expected: 01/12/2025, Expires: Start: 01-12-2025 End: 04-13-2025 Folate [Mass/volume] in Serum or Plasma [facility] Comment on above: Expected: 01/12/2025, Expires: Start: 01-12-2025 End: 04-13-2025 Hemoglobin A1c in Blood [facility] Comment on above: Expected: 01/12/2025, Expires: Start: 01-12-2025 End: 04-13-2025 Microalbumin/Creatinine [Mass Ratio] in Urine [facility] Comment on above: Expected: 01/12/2025, Expires: Start: 01-12-2025 End: 04-13-2025 Parathyrin.intact [Mass/volume] in Serum or Plasma [facility] Comment on above: Expected: 01/12/2025, Expires: Start: 01-12-2025 End: 04-13-2025 PROTEIN ELECTROPHORESIS SERUM W/INTERP [facility] Comment on above: Expected: 01/12/2025, Expires: Start: 01-12-2025 End: 04-13-2025 PSA/PROSTATE SPECIFIC ANTIGEN SCREENING [facility] Comment on above: Expected: 01/12/2025, Expires: Start: 01-12-2025 End: 04-13-2025 Testosterone [Mass/volume] in Serum or Plasma [facility] Comment on above: Expected: 01/12/2025, Expires: Start: 01-12-2025 End: 04-13-2025 Thyrotropin [Units/volume] in Serum or Plasma [facility] Comment on above: Expected: 01/12/2025, Expires: Start: 01-12-2025 End: 01-12-2025 Patient encounter procedure 01/12/2025 10:40 AM EDT Office Visit Family [facility] [place] [address] [place] [address] Edouard Noland MD [address] [place] [address] 6 mo f/u [facility] [place] Comment on above: 6 mo f/u Start: 01-08-2025 Hepatitis B screening Urine Albumin:Creatinine Ratio [facility] Start: 01-03-2025 Annual PCP Team Chronic Disease Visit Annual PCP Team Chronic Disease Visit [facility] Start: 01-03-2025 Diabetic foot examination Diabetic Foot Exam [facility] Start: 10-31-2024 Annual PCP Team Chronic Disease Visit Annual PCP Team Chronic Disease Visit [facility] Start: 10-06-2024 End: 10-06-2024 Patient encounter procedure 10/06/2024 1:00 PM EDT [facility] [address] [place] [address] Noble Lawson, [facility] [address] [place] [phone] DM f/up; CGM review [facility] Comment on above: DM f/up; CGM review Start: 07-29-2024 End: 10-28-2024 ALK PHOS ISOENZYM BL ALK PHOS ISOENZYM BL Lab Routine Elevated alkaline phosphatase level Expected: 07/29/2024, Expires: 10/28/2024 [facility] Work Phone: Comment on above: Expected: 07/29/2024, Expires: Start: 07-07-2024 End: 10-06-2024 25-hydroxyvitamin D3 [Mass/volume] in Serum or Plasma VITAMIN D 25 HYDROXY Lab Routine Vitamin D deficiency Expected: 07/07/2024, Expires: 10/06/2024 [facility] Comment on above: Expected: 07/07/2024, Expires: Start: 07-07-2024 End: 10-06-2024 Comprehensive metabolic 2000 panel - Serum or Plasma COMPREHENSIVE METABOLIC PANEL Lab Routine Hypertriglyceridemia Expected: 07/07/2024, Expires: 10/06/2024 [facility] Comment on above: Expected: 07/07/2024, Expires: Start: 07-07-2024 End: 10-06-2024 Hemoglobin A1c in Blood HEMOGLOBIN A1C Lab Routine Controlled type 2 diabetes mellitus without complication, without long-term current use of insulin (HCC) Expected: 07/07/2024, Expires: 10/06/2024 [facility] Comment on above: Expected: 07/07/2024, Expires: Start: 07-07-2024 End: 10-06-2024 Lipid 1996 panel - Serum or Plasma LIPID PANEL BASIC Lab Routine Hypertriglyceridemia Expected: 07/07/2024, Expires: 10/06/2024 [facility] Work Phone: Comment on above: Expected: 07/07/2024, Expires: Start: 07-07-2024 End: 10-06-2024 Thyrotropin [Units/volume] in Serum or Plasma THYROID STIMULATING HORMONE Lab Routine Borderline abnormal thyroid function test Expected: 07/07/2024, Expires: 10/06/2024 [facility] Comment on above: Expected: 07/07/2024, Expires: Start: 07-07-2024 End: 10-06-2024 Thyroxine (T4) free [Mass/volume] in Serum or Plasma T4 FREE/FREE THYROXINE Lab Routine Borderline abnormal thyroid function test Expected: 07/07/2024, Expires: 10/06/2024 [facility] Comment on above: Expected: 07/07/2024, Expires: Start: 07-07-2024 End: 07-07-2024 Patient encounter procedure 07/07/2024 8:20 AM EST Office Visit [facility] [place] [address] [facility] [place] [address] Bobbi Hart APRN.MOVING PICTURE OPERATOR [address] [place] [address] 6 mo f/u [facility] [place] Comment on above: 6 mo f/u Start: 07-04-2024 End: 07-04-2024 Patient encounter procedure 07/04/2024 10:00 AM EST Office Visit Family [place] [address] [place] [address] Edouard Noland MD [address] [facility] [place] [address] 6 mo f/u Family [facility] Comment on above: 6 mo f/u Start: 07-02-2024 Annual PCP Team Chronic Disease Visit Annual PCP Team Chronic Disease Visit [facility] Start: 07-02-2024 Hemoglobin A1c measurement HbA1C [facility] Start: 07-02-2024 Pneumococcal vaccination [facility] Comment on above: Postponed from 1978 (Declined at t his time) Start: 06-26-2024 Hepatitis B surface antibody level LDL Cholesterol [facility] Start: 04-21-2024 End: 04-21-2024 Patient encounter procedure 04/21/2024 11:30 AM EDT [facility] [address] [place] [address] [facility] [address] [place] [phone] DM f/up; CGM review [facility] Comment on above: DM f/up; CGM review Start: 04-16-2024 End: 04-16-2024 Patient encounter procedure 04/16/2024 1:00 PM EDT [facility] [address] [place] [address] [place] [place] [id number] [place] [phone] DM f/up; CGM review [facility] Comment on above: DM f/up; CGM review Start: 03-30-2024 Covid-19 Vaccine ( season) Covid-19 Vaccine ( season) [facility] Start: 03-30-2024 Covid-19 Vaccine ( season) Covid-19 Vaccine ( season) [facility] Start: 03-30-2024 Influenza vaccination [facility] Start: 03-21-2024 Glaucoma screening Dilated Retinal Exam [facility] Start: 03-21-2024 Hepatitis C antibody, confirmatory test Dilated Retinal Exam [facility] Start: 01-27-2024 Influenza vaccination Influenza Vaccine (#1) [place] Jessica oconnell Comment on above: Postponed from 03/30/2023 (Declined at t his time) Start: 01-16-2024 End: 01-16-2024 Patient encounter procedure 01/16/2024 1:00 PM EDT [facility] [address] [place] [address] Noble Lawson, [facility] [address] [place] [phone] DM f/up; CGM review [facility] Comment on above: DM f/up; CGM review Start: 01-14-2024 End: 01-14-2024 Patient encounter procedure 01/14/2024 9:20 AM EDT Office Visit Neurology [address] [place] [address] Edouard Ramires Jr., MD [address] [phone] MIKHAIL (obstructive sleep apnea) [G47.33 Neurology Comment on above: MIKHAIL (obstructive sleep apnea) [G47.33 Start: 01-04-2024 End: 04-04-2024 25-hydroxyvitamin D3 [Mass/volume] in Serum or Plasma VITAMIN D 25 HYDROXY Lab Routine Vitamin D deficiency Expected: 01/04/2024, Expires: 04/04/2024 [facility] Comment on above: Expected: 01/04/2024, Expires: 4 Start: 01-04-2024 End: 04-04-2024 ALBUMIN/CREAT RATIO RND UR ALBUMIN/CREAT RATIO RND UR Lab Routine Controlled type 2 diabetes mellitus without complication, without long-term current use of insulin (HCC) Expected: 01/04/2024, Expires: 04/04/2024 [facility] Work Phone: Comment on above: Expected: 01/04/2024, Expires: 4 Start: 01-04-2024 End: 04-04-2024 Basic metabolic 2000 panel - Serum or Plasma BASIC METABOLIC PANEL Lab Routine Muscle cramps Expected: 01/04/2024, Expires: 04/04/2024 [facility] Work Phone: Comment on above: Expected: 01/04/2024, Expires: 4 Start: 01-04-2024 End: 04-04-2024 Cobalamin (Vitamin B12) [Mass/volume] in Serum or Plasma VITAMIN B12 Lab Routine Muscle cramps Weakness of lower extremity, unspecified laterality Controlled type 2 diabetes mellitus without complication, without long-term current use of insulin (HCC) Expected: 01/04/2024, Expires: 04/04/2024 [facility] Comment on above: Expected: 01/04/2024, Expires: Start: 01-04-2024 Hepatitis B screening URINE ALBUMIN:CREATININE RATIO [facility] Start: 01-04-2024 End: 04-04-2024 Magnesium [Mass/volume] in Serum or Plasma MAGNESIUM Lab Routine Muscle cramps Expected: 01/04/2024, Expires: 04/04/2024 [facility] Comment on above: Expected: 01/04/2024, Expires: 4 Start: 01-04-2024 End: 04-04-2024 Thyrotropin [Units/volume] in Serum or Plasma THYROID STIMULATING HORMONE Lab Routine Borderline abnormal thyroid function test Expected: 01/04/2024, Expires: 04/04/2024 [facility] Comment on above: Expected: 01/04/2024, Expires: Start: 01-04-2024 End: 04-04-2024 Thyroxine (T4) free [Mass/volume] in Serum or Plasma T4 FREE/FREE THYROXINE Lab Routine Borderline abnormal thyroid function test Expected: 01/04/2024, Expires: 04/04/2024 [facility] Comment on above: Expected: 01/04/2024, Expires: 4 Start: 01-03-2024 3 comp foot exam completed DIABETIC FOOT EXAM [facility] Start: 01-03-2024 ANNUAL PCP TEAM CHRONIC DISEASE VISIT ANNUAL PCP TEAM CHRONIC DISEASE VISIT [facility] Start: 01-03-2024 COVID-19 VACCINE (#1) COVID-19 VACCINE (#1) [facility] Comment on above: Postponed from 01/07/1973 (Declined at t his time) Start: 01-03-2024 Diabetic foot examination Diabetic Foot Exam [facility] Start: 01-03-2024 HEPATITIS B (1 of 3 - 3-dose series) HEPATITIS B (1 of 3 - 3-dose series) [facility] Comment on above: Postponed from 1972 (Declined at t his time) Start: 01-03-2024 Hepatitis B Vaccine (1 of 3 - 19+ 3-dose series) Hepatitis B Vaccine (1 of 3 - 19+ 3-dose series) [facility] Comment on above: Postponed from 1991 (Declined at t his time) Start: 01-03-2024 Hepatitis B Vaccine (1 of 3 - 3-dose series) Hepatitis B Vaccine (1 of 3 - 3-dose series) [facility] Comment on above: Postponed from 1972 (Declined at t his time) Start: 01-03-2024 HEPATITIS C SCREENING HEPATITIS C SCREENING [facility] Comment on above: Postponed from 1990 (Declined at t his time) Start: 01-03-2024 Hepatitis C screening Hepatitis C Screening [facility] Comment on above: Postponed from 1990 (Declined at t his time) Start: 01-03-2024 HIV SCREENING HIV SCREENING [facility] Comment on above: Postponed from 1990 (Declined at t his time) Start: 01-03-2024 HIV screening HIV Screening [facility] Comment on above: Postponed from 1990 (Declined at t his time) Start: 01-03-2024 SHINGRIX VACCINE (1 of 2) SHINGRIX VACCINE (1 of 2) [facility] Comment on above: Postponed from 2022 (Declined at t his time) Start: 12-25-2023 End: 03-25-2024 Hemoglobin A1c in Blood HGB A1C Lab Routine Controlled type 2 diabetes mellitus without complication, without long-term current use of insulin (HCC) Expected: 12/25/2023, Expires: 03/25/2024 [facility] Work Phone: Comment on above: Expected: 12/25/2023, Expires: Start: 12-25-2023 Hemoglobin A1c measurement HbA1C [facility] Start: 12-25-2023 Hemoglobin A1c/Hemoglobin.total in Blood HbA1C [facility] Start: 12-08-2023 Hepatitis B surface antibody level LDL CHOLESTEROL [facility] Start: 07-30-2023 Behavioral Health Screening Behavioral Health Screening [facility] Start: 07-30-2023 Depression Assessment Depression Assessment [facility] Start: 07-02-2023 End: 10-01-2023 Nuclear Ab [Presence] in Serum by Immunoassay [facility] Work Phone: Comment on above: Expected: 07/02/2023, Expires: 4 Start: 06-19-2023 End: 09-18-2023 CBC W Auto Differential panel - Blood CBC + DIFF Lab Routine Controlled type 2 diabetes mellitus without complication, without long-term current use of insulin (HCC) Hypertriglyceridemia Expected: 06/19/2023, Expires: 09/18/2023 [facility] Work Phone: Comment on above: Expected: 06/19/2023, Expires: 4 Start: 06-19-2023 End: 09-18-2023 Comprehensive metabolic 2000 panel - Serum or Plasma COMP METABOLIC PANEL Lab Routine Controlled type 2 diabetes mellitus without complication, without long-term current use of insulin (HCC) Hypertriglyceridemia Expected: 06/19/2023, Expires: 09/18/2023 [facility] Work Phone: Comment on above: Expected: 06/19/2023, Expires: 4 Start: 06-19-2023 End: 09-18-2023 Hemoglobin A1c in Blood HGB A1C Lab Routine Controlled type 2 diabetes mellitus without complication, without long-term current use of insulin (HCC) Expected: 06/19/2023, Expires: 09/18/2023 [facility] Work Phone: Comment on above: Expected: 06/19/2023, Expires: 4 Start: 06-19-2023 End: 09-18-2023 Lipid 1996 panel - Serum or Plasma LIPID PANEL BASIC Lab Routine Hypertriglyceridemia Expected: 06/19/2023, Expires: 09/18/2023 [facility] Work Phone: Comment on above: Expected: 06/19/2023, Expires: 4 Start: 06-19-2023 End: 09-18-2023 Thyrotropin [Units/volume] in Serum or Plasma TSH BLD Lab Routine Borderline abnormal thyroid function test Expected: 06/19/2023, Expires: 09/18/2023 [facility] Work Phone: Comment on above: Expected: 06/19/2023, Expires: Start: 06-09-2023 Hemoglobin A1c/Hemoglobin.total in Blood HBA1C [facility] Start: 03-30-2023 Covid-19 Vaccine () Covid-19 Vaccine () [facility] Start: 03-30-2023 Influenza vaccination [facility] Start: 01-02-2023 End: 03-04-2023 ALBUMIN/CREAT RATIO RND UR ALBUMIN/CREAT RATIO RND UR Lab Routine Controlled type 2 diabetes mellitus without complication, without long-term current use of insulin (HCC) Expected: 01/02/2023, Expires: 03/04/2023 [facility] Work Phone: Comment on above: Expected: 01/02/2023, Expires: 3 Start: 01-02-2023 End: 03-04-2023 Cobalamin (Vitamin B12) [Mass/volume] in Serum or Plasma VITAMIN B12 BLOOD Lab Routine Paresthesia Expected: 01/02/2023, Expires: 03/04/2023 [facility] Work Phone: Comment on above: Expected: 01/02/2023, Expires: 3 Start: 01-02-2023 End: 03-04-2023 Folate [Mass/volume] in Serum or Plasma FOLATE SERUM Lab Routine Paresthesia Expected: 01/02/2023, Expires: 03/04/2023 [facility] Work Phone: Comment on above: Expected: 01/02/2023, Expires: 3 Start: 01-02-2023 End: 03-04-2023 PROTEIN ELECTROPHORESIS SERUM W/INTERP PROTEIN ELECTROPHORESIS SERUM W/INTERP Lab Routine Paresthesia Expected: 01/02/2023, Expires: 03/04/2023 [facility] Work Phone: Comment on above: Expected: 01/02/2023, Expires: 3 Start: 01-02-2023 End: 03-04-2023 Thyrotropin [Units/volume] in Serum or Plasma TSH BLD Lab Routine Paresthesia Expected: 01/02/2023, Expires: 03/04/2023 [facility] Work Phone: Comment on above: Expected: 01/02/2023, Expires: Start: 12-06-2022 End: 02-05-2023 25-hydroxyvitamin D3 [Mass/volume] in Serum or Plasma VITAMIN D 25 HYDROXY Lab Routine Hyperglycemia Weight loss Expected: 12/06/2022, Expires: 02/05/2023 [facility] Work Phone: Comment on above: Expected: 12/06/2022, Expires: 3 Start: 12-06-2022 End: 02-05-2023 CBC W Auto Differential panel - Blood CBC + DIFF Lab Routine Hyperglycemia Weight loss Expected: 12/06/2022, Expires: 02/05/2023 [facility] Work Phone: Comment on above: Expected: 12/06/2022, Expires: Start: 12-06-2022 End: 02-05-2023 Comprehensive metabolic 2000 panel - Serum or Plasma COMP METABOLIC PANEL Lab Routine Hyperglycemia Weight loss Expected: 12/06/2022, Expires: 02/05/2023 [facility] Work Phone: Comment on above: Expected: 12/06/2022, Expires: 3 Start: 12-06-2022 End: 02-05-2023 Hemoglobin A1c in Blood HGB A1C Lab Routine Hyperglycemia Weight loss Expected: 12/06/2022, Expires: 02/05/2023 [facility] Work Phone: Comment on above: Expected: 12/06/2022, Expires: 3 Start: 12-06-2022 End: 02-05-2023 Lipid 1996 panel - Serum or Plasma LIPID PANEL BASIC Lab Routine Screening for lipid disorders Expected: 12/06/2022, Expires: 02/05/2023 [facility] Work Phone: Comment on above: Expected: 12/06/2022, Expires: 3 Start: 12-06-2022 End: 02-05-2023 Thyrotropin [Units/volume] in Serum or Plasma TSH BLD Lab Routine Weight loss Expected: 12/06/2022, Expires: 02/05/2023 [facility] Work Phone: Comment on above: Expected: 12/06/2022, Expires: 3 Start: 07-30-2022 DEPRESSION ASSESSMENT DEPRESSION ASSESSMENT [facility] Start: 2022 SHINGRIX VACCINE (1 of 2) SHINGRIX VACCINE (1 of 2) [facility] Start: 07-08-2019 LIPID SCREEN LIPID SCREEN [facility] Start: 10-13-2018 Urine microalbumin profile DTAP,TDAP,TD (2 - Td or Tdap) [facility] Start: 2017 COLOGUARD (FIT-DNA) COLOGUARD (FIT-DNA) [facility] Start: 2017 Colonoscopy COLONOSCOPY [facility] Start: 2017 COLORECTAL CANCER SCREENING COLORECTAL CANCER SCREENING [facility] Start: [address] COLONOGRAPHY [facility] Start: 2017 DIABETES SCREEN DIABETES SCREEN [facility] Start: 2017 FECAL OCCULT BLOOD FECAL OCCULT BLOOD [facility] Start: 2017 Screening for malignant neoplasm of colon [facility] Start: 2017 SIGMOIDOSCOPY SIGMOIDOSCOPY [facility] Start: 1991 Hepatitis B Vaccine (1 of 3 - 19+ 3-dose series) Hepatitis B Vaccine (1 of 3 - 19+ 3-dose series) [facility] Start: 1991 Pneumococcal Vaccine: 50+ (1 of 2 - PCV) Pneumococcal Vaccine: 50+ (1 of 2 - PCV) [facility] Start: 1990 Anxiety Screening Anxiety Screening [facility] Start: 1990 Depression Screening Depression Screening [facility] Start: 1990 HEPATITIS C SCREENING HEPATITIS C SCREENING [facility] Start: 1990 Hepatitis C screening Hepatitis C Screening [facility] Start: 1990 HIV SCREENING HIV SCREENING [facility] Start: 1990 HIV screening HIV Screening [facility] Start: 1982 Hepatitis B screening URINE ALBUMIN:CREATININE RATIO [facility] Start: 1982 Hepatitis C antibody, confirmatory test DILATED RETINAL EXAM [facility] Start: 1978 PNEUMOCOCCAL (1 - PCV) PNEUMOCOCCAL (1 - PCV) [facility] Start: 1978 Pneumococcal vaccination Pneumococcal Vaccine (1 - PCV) [facility] Start: 01-07-1973 COVID-19 VACCINE (#1) COVID-19 VACCINE (#1) [facility] Start: 1972 HEPATITIS B (1 of 3 - 3-dose series) HEPATITIS B (1 of 3 - 3-dose series) [facility] End: 02-11-2026 BD DXA TRABECULAR BONE SCORE (TBS) BD DXA TRABECULAR BONE SCORE (TBS) Radiology Routine Osteopenia of multiple sites 1 Occurrences starting 01/12/2025 until 02/11/2026 [facility] Comment on above: 1 Occurrences starting 01/12/2025 until 02/11/2026 BD DXA TRABECULAR SONALI NE SCORE (TBS) BD DXA TRABECULAR BONE SCORE (TBS) Radiology Routine Osteopenia of multiple sites 02/03/2025 11:33 AM EDT [facility] End: 02-11-2026 DXA Skeletal system.axial Views for bone density DXA-AXIAL SKELETON Radiology Routine Osteopenia of multiple sites 1 Occurrences starting 01/12/2025 until 02/11/2026 [facility] Comment on above: 1 Occurrences starting 01/12/2025 until 02/11/2026 DXA Skeletal system.axial Views for bone density DXA-AXIAL SKELETON Radiology Routine Osteopenia of multiple sites 02/03/2025 11:33 AM EDT [facility] Work Phone: End: 02-12-2025 PAP TITRATION PSG (CPAP, BIPAP, ASV) PAP TITRATION PSG (CPAP, BIPAP, ASV) Procedures Routine MIKHAIL (obstructive sleep apnea) CSA (central sleep apnea) 1 Occurrences starting 01/14/2024 until 02/12/2025 [facility] Work Phone: Comment on above: 1 Occurrences starting 01/14/2024 until 02/12/2025 End: 05-18-2025 PAP TITRATION PSG (CPAP, BIPAP, ASV) PAP TITRATION PSG (CPAP, BIPAP, ASV) Procedures Routine Central sleep apnea MIKHAIL (obstructive sleep apnea) 1 Occurrences starting 04/18/2024 until 05/18/2025 [facility] Work Phone: Comment on above: 1 Occurrences starting 04/18/2024 until 05/18/2025 Patient referral [facility] Work Phone: End: 02-15-2026 US Abdomen RUQ US ABD RIGHT UPPER QUADRANT Radiology Routine Elevated liver enzymes 1 Occurrences starting 01/16/2025 until 02/15/2026 [facility] Work Phone: Comment on above: 1 Occurrences starting 01/16/2025 until 02/15/2026 US Abdomen RUQ US ABD RIGHT UPP ER QUADRANT Radiology Routine Elevated liver enzymes 01/19/2025 10:41 AM EDT [facility] End: 01-19-2025 Us abdominal real time w/image limited [facility] Work Phone: Comment on above: ONCE for 1 Occurrences starting 01/20/20 until 01/19/2025 End: 03-13-2026 US Kidney - bilateral and Urinary bladder US KIDNEY/BLADDER Radiology Routine Renal insufficiency 1 Occurrences starting 02/11/2025 until 03/13/2026 [facility] Work Phone: Comment on above: 1 Occurrences starting 02/11/2025 until 03/13/2026 End: 03-04-2026 XR Chest PA and Lateral XR CHEST 2V FRONTAL/LAT Radiology Routine Bacterial pneumonia 1 Occurrences starting 02/02/2025 until 03/04/2026 [facility] Work Phone: Comment on above: 1 Occurrences starting 02/02/2025 until 03/04/2026 XR Chest PA and Lateral XR CHEST 2V FRONTAL/LAT Radiology Routine Bacterial pneumonia 02/23/2025 10:16 AM EDT [facility] Work Phone: [facility] Immunizations Immunization Date Immunization Notes Care Provider Inez martinez 01-02-2023 tetanus toxoid, redu melissa diphtheria toxoid, and acellular pertussis vaccine, adsorbed Edouard Noland MD Work Phone: [facility] 05-21-2019 influenza, injectabl e, quadrivalent, contains preservative Edouard Noland MD Work Phone: [facility] 05-21-2019 influenza virus vaccine, unspecified formulation Edouard Noland MD Work Phone: [facility] 04-30-2017 influenza, injectabl e, quadrivalent, contains preservative Edouard Noland MD Work Phone: [facility] Work Phone: 05-27-2016 influenza, injectabl e, quadrivalent, contains preservative Edouard Noland MD Work Phone: [facility] 07-06-2014 influenza, seasonal, injectable Edouard Noland MD Work Phone: [facility] 10-13-2008 tetanus toxoid, redu melissa diphtheria toxoid, and acellular pertussis vaccine, adsorbed Edouard Noland MD Work Phone: [facility] Work Phone: Payers Date Payer Category Payer Self-pay 2022 Medicaid [id number] 2022 [employer] Blue [employer] [id number] 2022 Unknown [id number] 2022 Unknown [id number] 2014 Unknown [employer] [id number] Unknown [id number] Unknown [id number] Unknown [id number] Unknown [id number] Social History Date Type Detail Facility Start: 03-18-2012 End: 01-21-2025 Tobacco smoking status NHIS Never smoked tobacco [facility] Start: 03-18-2012 Tobacco use and exposure Smoke less tobacco non-user [facility] Start: 05-27-2019 End: 01-12-2025 Alcohol intake Current non-drinker of alcohol (finding) [facility] Start: 1970 Sex Assigned At Not on file [facility] Start: 01-02-2023 History SDOH Alcohol Frequency 1 [facility] Start: 01-02-2023 History SDOH Alcohol Std Drinks 0 [facility] Start: 01-02-2023 History SDOH Social Connections Phone 98 [facility] Start: 01-02-2023 History SDOH Social Connections Uatsdin 3 [facility] Start: 01-02-2023 History SDOH Social Connections Membership 2 [facility] Start: 01-02-2023 History SDOH Physica l Activity DPW 6 [facility] Start: 01-02-2023 History SDOH Financial 5 [facility] Start: 01-02-2023 End: 04-21-2024 History of Social function [facility] Start: 01-02-2023 End: 04-21-2024 Social connection and isolation panel [facility] In a typical week, h ow many times do you talk on the telephone with family, friends, or neighbors? Patient refused [facility] Do you belong to any clubs or organizations such as mu-ism groups, unions, fraternal or athletic groups, or school groups? No [facility] Are you now , , , , never or living with a partner? [facility] How often to you hav e a drink containing alcohol? Never [facility] Do you feel stress - tense, restless, nervous, or anxious, or unable to sleep at night because your mind is troubled all the time - these days [OSQ] Not at all [facility] (I/We) worried whemilagro er (my/our) food would run out before (I/we) got money to buy more. Never true [facility] How hard is it for y ou to pay for the very basics like food, housing, medical care, and heating Not very hard [facility] Do you feel stress - tense, restless, nervous, or anxious, or unable to sleep at night because your mind is troubled all the time - these days [OSQ] Only a little [facility] Start: 01-14-2016 Alcohol Alcohol [facility] Start: 01-14-2016 Tobacco Use Tobacco Use [facility] Start: 1970 Sex Assigned At Male W [facility] Medical Equipment Procedure Code Equipment Code Equipment Origin al Text Equipment Identifier Dates Test blood sugar(s) 1 times daily. Dx: Type 2 DM - Controlled E11.9 Insulin: No [id number], [id number] Start: 01-02-2023 Comment on above: Test blood sugar(s) 1 times daily. Dx: Type 2 DM - Controlled E11.9 Insulin: No Functional Status Date Assessment Result Facility 11-16-2014 Are you deaf, or do you have serious difficulty hearing No 11/16/2014 3:27 PM Leonie Yadav LPN No [facility] 11-16-2014 Are you blind, or do you have serious difficulty seeing, even when wearing glasses No 11/16/2014 3:27 PM Leonie Yadav LPN No [facility] 11-16-2014 Do you have serious difficulty walking or climbing stairs No 11/16/2014 3:27 PM Leonie Yadav LPN No [facility] 11-16-2014 Do you have difficul ty dressing or bathing No 11/16/2014 3:27 PM Leonie Yadav LPN No [facility] 11-16-2014 Because of a physica l, mental, or emotional condition, do you have difficulty doing errands alone such as visiting a physician's office or shopping No 11/16/2014 3:27 PM Leonie Yadav LPN No [facility] Mental Status Date Assessment Result Facility 06-25-2025 Cognitive function Voice/Name [place] [facility] Work Phone: 11-16-2014 Because of a physica l, mental, or emotional condition, do you have serious difficulty concentrating, remembering, or making decisions No 11/16/2014 3:27 PM EDT Leonie Zheng LPN No [facility] Clinical Notes 08-07-2008 to 02-25-2025 Telephone Encounter - Leonie Zheng LPN - 02/25/2025 3:26 PM EDTTelephone Encounter - Leonie Zheng LPN - 02/25/2025 3:26 PM EDTTelephone Encounter - Edouard Noland MD - 02/25/2025 3:08 PM EDT Note Date & Type Note Facility 02-25-2025 Telephone encounter Note Faxed as requested. [facility] 02-25-2025 Miscellaneous Notes Faxed as requested. Spoke with regarding xray. He has not been doing well. Worsening fatigue and cough. Has not yet followed up with me since first visit. Still has a number of labs pending for his renal insufficiency and hypercalcemia. Reviewed xray report with them. Has mass and multiple nodules. Has been losing weight. Was in . [place] do have a farm and have poultry. Discussed he either has something infectious vs inflammatory vs possible tumor. to take to [facility] ER. Spoke with er. Please fax xray from today and labs to them documented in this encounter [facility] 02-25-2025 Telephone encounter Note Spoke with regarding xray. He has not been doing well. Worsening fatigue and cough. Has not yet followed up with me since first visit. Still has a number of labs pending for his renal insufficiency and hypercalcemia. Reviewed xray report with them. Has mass and multiple nodules. Has been losing weight. Was in . They do have a farm and have poultry. Discussed he either has something infectious vs inflammatory vs possible tumor. to take to [facility] ER. Spoke with er. Please fax xray from today and labs to them [facility] 02-23-2025 History of Present illness Narrative Radiology Service Progress Note PATIENT NAME: Tresa Muñoz DATE OF SERVICE: February 23, 2025 TIME: 10:49 AM PATIENT IDENTITY VERIFICATION COMPLETED USING TWO (2) IDENTIFIERS: Name and Date of confirmed by patient verbally. FALL SCREENING: Has the patient had 2 falls in the last year or 1 fall with injury or currently using an Ambulatory Assistive Device (Walker, Cane, Wheelchair, Crutches, etc.)? No PATIENT GENDER DATA: Assigned male at PATIENT RELEVANT IMPLANT DATA REVIEWED: Not Applicable PATIENT PRESENTS WITH AN IMPLANTABLE OR ATTACHED FOUR ROLL CALENDER OPERATOR: No RADIOLOGY DEPARTMENT: General X-ray: Exam(s) Completed: Chest X-Ray PERIPHERAL IV DATA: Not applicable SIGNED BY: CHARLENE Feliz) February 23, 2025 10:49 AM documented in this encounter [facility] 02-23-2025 Note HNO ID: [id number] Author: ALISA AVELAR RT(R) Service: ? Author Type: Technologist Type: Progress Notes Filed: 02/23/2025 10:49 Note Text: Radiology Service Progress Note PATIENT NAME: Tresa Muñoz DATE OF SERVICE: February 23, 2025 TIME: 10:49 AM PATIENT IDENTITY VERIFICATION COMPLETED USING TWO (2) IDENTIFIERS: Name and Date of confirmed by patient verbally. FALL SCREENING: Has the patient had 2 falls in the last year or 1 fall with injury or currently using an Ambulatory Assistive Device (Walker, Cane, Wheelchair, Crutches, etc.)? No PATIENT GENDER DATA: Assigned male at PATIENT RELEVANT IMPLANT DATA REVIEWED: Not Applicable PATIENT PRESENTS WITH AN IMPLANTABLE OR ATTACHED FOUR ROLL CALENDER OPERATOR: No RADIOLOGY DEPARTMENT: General X-ray: Exam(s) Completed: Chest X-Ray PERIPHERAL IV DATA: Not applicable SIGNED BY: RT Trini(R) February 23, 2025 10:49 AM [facility] 02-16-2025 Telephone encounter Note Images from the original note were not included. [facility] Work Phone: 02-16-2025 Miscellaneous Notes Images from the original note were not included. documented in this encounter [facility] 02-12-2025 Telephone encounter Note Patient's was made aware of the results.and verbalizes understanding. She said he already has a follow up appointment scheduled. She will make the ultrasound appointment next week and make sure he gets his labs completed Keira Loomis Ma [facility] 02-12-2025 Miscellaneous Notes Patient's was made aware of the results.and verbalizes understanding. She said he already has a follow up appointment scheduled. She will make the ultrasound appointment next week and make sure he gets his labs completed Keira Loomis Ma Images from the original note were not included. ----- Message from Edouard Noland MD sent at 02/11/2025 2:06 PM EDT ----- See below. The one form of vit d is still high. Instead of waiting two weeks. Add a few other labs and recheck the labs this week. Follow up with one of us as well. Edouard Noland MD to [facility] Everardo Ryde 02/11/25 8:38 AM Result Note Waiting on pending but will take a while for some. Calcium is a little better but still pretty high. See endo as we discussed. Kidney function is still a little high. Continue to push fluids. Avoid nsaids and supplements. Recheck bmp, cbc in two weeks and ua. Check renal us BASIC METABOLIC PANEL Associated Results documented in this encounter [facility] 02-12-2025 Telephone encounter Note Images from the original note were not included. ----- Message from Edouard Noland MD sent at 02/11/2025 2:06 PM EDT ----- See below. The one form of vit d is still high. Instead of waiting two weeks. Add a few other labs and recheck the labs this week. Follow up with one of us as well. Edouard Noland MD to [facility] [place] 02/11/25 8:38 AM Result Note Waiting on pending but will take a while for some. Calcium is a little better but still pretty high. See endo as we discussed. Kidney function is still a little high. Continue to push fluids. Avoid nsaids and supplements. Recheck bmp, cbc in two weeks and ua. Check renal us BASIC METABOLIC PANEL Associated Results [facility] 02-03-2025 History of Present illness Narrative Radiology Service Progress Note PATIENT NAME: Tresa Muñoz DATE OF SERVICE: February 03, 2025 TIME: 11:33 AM PATIENT IDENTITY VERIFICATION COMPLETED USING TWO (2) IDENTIFIERS: Name and Date of confirmed by patient verbally. FALL SCREENING: Has the patient had 2 falls in the last year or 1 fall with injury or currently using an Ambulatory Assistive Device (Walker, Cane, Wheelchair, Crutches, etc.)? No PATIENT GENDER DATA: Assigned male at PATIENT RELEVANT IMPLANT DATA REVIEWED: Not Applicable PATIENT PRESENTS WITH AN IMPLANTABLE OR ATTACHED FOUR ROLL CALENDER OPERATOR: No RADIOLOGY DEPARTMENT: Bone Density PERIPHERAL IV DATA: Not applicable SIGNED BY: RT Patricia(Ema) February 03, 2025 11:33 AM documented in this encounter [facility] 02-03-2025 Note HNO ID: [id number] Author: PATTI MOLINA RT(R) Service: ? Author Type: Technologist Type: Progress Notes Filed: 02/03/2025 11:33 Note Text: Radiology Service Progress Note PATIENT NAME: Tresa Muñoz DATE OF SERVICE: February 03, 2025 TIME: 11:33 AM PATIENT IDENTITY VERIFICATION COMPLETED USING TWO (2) IDENTIFIERS: Name and Date of confirmed by patient verbally. FALL SCREENING: Has the patient had 2 falls in the last year or 1 fall with injury or currently using an Ambulatory Assistive Device (Walker, Cane, Wheelchair, Crutches, etc.)? No PATIENT GENDER DATA: Assigned male at PATIENT RELEVANT IMPLANT DATA REVIEWED: Not Applicable PATIENT PRESENTS WITH AN IMPLANTABLE OR ATTACHED FOUR ROLL CALENDER OPERATOR: No RADIOLOGY DEPARTMENT: Bone Density PERIPHERAL IV DATA: Not applicable SIGNED BY: RT Patricia(Ema) February 03, 2025 11:33 AM [facility] 02-02-2025 Telephone encounter Note Phoned patient Ivonne left message to return call and ask for food supervisor can assit with scheduling for the Endocrine appt, on her voicemail. [facility] 02-02-2025 Miscellaneous Notes Phoned patient Ivonne left message to return call and ask for food supervisor can assit with scheduling for the Endocrine appt, on her voicemail. Please get set up Patient Ivonne returned call and went over notes from Dr Noland with understanding. She said no he is not set up with Endocrine as yet. She will get his labs done. He has bone density scheduled for tomorrow. She is hoping to get Endocrine appt set up soon. Called and left a detailed voicemail notifying patient's of providers message. Clinic phone number was left for patient's to call back and answer providers questions. Patti Drew, AIME Saw he did go to ER while I was out. Needs his labs rechecked and keep his follow up. Did they set up appt to see endo because of the hypercalcemia documented in this encounter [facility] 02-02-2025 Telephone encounter Note Phoned Ivonne and left message with notes from Dr Noland on her voicemail. Order in computer for the chest xray. [facility] 02-02-2025 Miscellaneous Notes Phoned Ivonne and left message with notes from Dr Noland on her voicemail. Order in computer for the chest xray. Can be done in next few weeks. Patient Ivonne calling asking when did PCP want to have him do repeat chest xray? Can leave her a message, she works until 8 pm today. Pending order needs diagnosis. Please advise documented in this encounter [facility] 02-02-2025 Telephone encounter Note Please get set up [facility] 02-02-2025 Telephone encounter Note Can be done in next few weeks. [facility] 02-02-2025 Telephone encounter Note Patient Ivonne returned call and went over notes from Dr Noland with understanding. She said no he is not set up with Endocrine as yet. She will get his labs done. He has bone density scheduled for tomorrow. She is hoping to get Endocrine appt set up soon. [facility] 02-02-2025 Telephone encounter Note Patient Ivonne calling asking when did PCP want to have him do repeat chest xray? Can leave her a message, she works until 8 pm today. Pending order needs diagnosis. Please advise [facility] 01-28-2025 Telephone encounter Note Called and left a detailed voicemail notifying patient's of providers message. Clinic phone number was left for patient's to call back and answer providers questions. Patti Drew, AMIE [facility] 01-28-2025 Telephone encounter Note Saw he did go to ER while I was out. Needs his labs rechecked and keep his follow up. Did they set up appt to see endo because of the hypercalcemia [facility] 01-28-2025 Telephone encounter Note See te [facility] 01-28-2025 Miscellaneous Notes See te Patient's spouse presented at front of house manager wanting to make sure that Dr. Noland/staff were aware that the patient will need a new prescription for the Wyatt 3 Plus as the original is being discontinued. Please assist. documented in this encounter [facility] 01-28-2025 Telephone encounter Note Patient's spouse presented at front of house manager wanting to make sure that Dr. Noland/staff were aware that the patient will need a new prescription for the Wyatt 3 Plus as the original is being discontinued. Please assist. [facility] 01-23-2025 Telephone encounter Note Spoke with and advised of provider message. Keira Loomis MA January 23, 2025 10:06 AM [facility] 01-23-2025 Miscellaneous Notes Spoke with and advised of provider message. Keira Loomis MA January 23, 2025 10:06 AM First off, make certain that he is drinking 64 oz. Of water daily. The most common reason for cramps is dehydration. Could consider adding Gatorade, liquid IV or even Pedialyte for electrolytes. Increased water will help with constipation. May use fiber such as Metamucil 1 tsp in a glass of water to regulate bowels or Miralax daily. If cramps continue, speak with dr. Noland 02/27/25. May not actually need another chest Xray- will assess lung sounds and other physical findings to indicate if repeat imaging is needed. First off, make certain that he is drinking 64 oz. Of water daily. The most common reason for cramps is dehydration. Could consider adding Gatorade, liquid IV or even Pedialyte for electrolytes. Increased water will help with constipation. May use fiber such as Metamucil 1 tsp in a glass of water to regulate bowels or Miralax daily. If cramps continue, speak with dr. Noland 02/27/25. May not actually need another chest Xray- will assess lung sounds and other physical findings to indicate if repeat imaging is needed. Spoke with and reviewed results. Pt was in ER last night and had chest pain. He had pneumonia. ER follow up was scheduled. refused to schedule sooner than 1 month because the ER dr told them to schedule it that way. She asks id chest x-ray should be ordered to be done before appointment? She also has a question because patient is having issues with constipation and muscle cramping. He was taking magnesium oxide for this but recently Dr Noland told him to stop ALL supplements due to hyperparathyroidism, toxic vit d level, and elevated alk phos. She is asking what he can do or take? ----- Message from Adrienne Castro sent at 01/22/2025 5:30 PM EDT ----- Ultrasound of the abdomen shows hepatic steatosis-sluggish liver from fatty liver disease. follow a healthy diet and avoid sugar. lose weight. exercise regularly. control your blood sugar. treat high cholesterol if you have it. avoid medicines that can affect your liver. drink no or very little alcohol, and quit smoking. Ultrasound of the abdomen shows hepatic steatosis-sluggish liver from fatty liver disease. follow a healthy diet and avoid sugar. lose weight. exercise regularly. control your blood sugar. treat high cholesterol if you have it. avoid medicines that can affect your liver. drink no or very little alcohol, and quit smoking. documented in this encounter [facility] 01-23-2025 Telephone encounter Note First off, make certain that he is drinking 64 oz. Of water daily. The most common reason for cramps is dehydration. Could consider adding Gatorade, liquid IV or even Pedialyte for electrolytes. Increased water will help with constipation. May use fiber such as Metamucil 1 tsp in a glass of water to regulate bowels or Miralax daily. If cramps continue, speak with dr. Noland 02/27/25. May not actually need another chest Xray- will assess lung sounds and other physical findings to indicate if repeat imaging is needed. [facility] 01-23-2025 Progress note Formatting of t his note might be different from the original. First off, make certain that he is drinking 64 oz. Of water daily. The most common reason for cramps is dehydration. Could consider adding Gatorade, liquid IV or even Pedialyte for electrolytes. Increased water will help with constipation. May use fiber such as Metamucil 1 tsp in a glass of water to regulate bowels or Miralax daily. If cramps continue, speak with dr. Noland 02/27/25. May not actually need another chest Xray- will assess lung sounds and other physical findings to indicate if repeat imaging is needed. T [facility] Work Phone: 01-23-2025 Telephone encounter Note Spoke with and reviewed results. Pt was in ER last night and had chest pain. He had pneumonia. ER follow up was scheduled. refused to schedule sooner than 1 month because the ER dr told them to schedule it that way. She asks id chest x-ray should be ordered to be done before appointment? She also has a question because patient is having issues with constipation and muscle cramping. He was taking magnesium oxide for this but recently Dr Noland told him to stop ALL supplements due to hyperparathyroidism, toxic vit d level, and elevated alk phos. She is asking what he can do or take? [facility] 01-23-2025 Telephone encounter Note ----- Message from Adrienne Castro sent at 01/22/2025 5:30 PM EDT ----- Ultrasound of the abdomen shows hepatic steatosis-sluggish liver from fatty liver disease. follow a healthy diet and avoid sugar. lose weight. exercise regularly. control your blood sugar. treat high cholesterol if you have it. avoid medicines that can affect your liver. drink no or very little alcohol, and quit smoking. [facility] 01-22-2025 Progress note Formatting of t his note might be different from the original. Ultrasound of the abdomen shows hepatic steatosis-sluggish liver from fatty liver disease. follow a healthy diet and avoid sugar. lose weight. exercise regularly. control your blood sugar. treat high cholesterol if you have it. avoid medicines that can affect your liver. drink no or very little alcohol, and quit smoking. [facility] 01-22-2025 Radiology Diagnostic study note [facility] Imaging Services [address] [place] [address] Chest 1 View MR#: [id number] Acct: [id number] Name: TRESA MUÑOZ Rep #: [id number] : 1970 M 54 From: Frandy Gutierrez MD PCP: Dr. Edouard Noland MD Status: REG E R Study:Chest 1 View Date of Exam: Exam# [id number] Ordering Dr: Rosa Caceres DO PROCEDURE: CHEST 1 VIEW 01/21/2025 REASON FOR EXAM: Shortness of breath TECHNIQUE: Frontal view of the chest. COMPARISON: None FINDINGS: Bilateral perihilar infiltrates are seen extending to the lower lobes. There isno demonstrated pleural abnormality. Normal heart and pericardium. Normal mediastinum and felipe. Normal visualized pulmonary arteries. Normal visualized aortic arch and descending thoracic aorta. Normal visualized thoracic spine. Normal visualized ribs, clavicles, and shoulders. There is no demonstrated abnormality of the visualized soft tissue structures ofthe upper abdomen. RAD/Chest 1 View IMPRESSION: Bilateral perihilar and lower lobe infiltrates. Reading Location: [place] [address] CC: Dr. Edouard Noland MD; DO Shelly Santos Poker Prop Player: Signed [facility] 01-21-2025 Radiology Diagnostic study note [facility] Imaging Services [address] [place] [address] Chest 1 View (Portable) MR#: [id number] Acct: [id number] Name: TRESA MUÑOZ Rep #: [id number] : 1970 M 54 From: Luz Baldwin MD PCP: Dr. Edouard Noland MD Status: REG E R Study:Chest 1 View (Portable) Date of Exam: 01/21/25 Exam# [id number] Ordering Dr: Rosa Caceres DO PROCEDURE: CHEST 1 VIEW (PORTABLE) 01/21/2025 REASON FOR EXAM: CHEST PAIN TECHNIQUE: Frontal view of the chest. COMPARISON: None. FINDINGS: Hardware: None. Heart: The heart size is normal. Lungs: Ill-defined, right mid lung zone opacity. Mild bilateral pulmonary opacities, greatest within the perihilar regions. No pleural effusion or pneumothorax. Bones: The bones are unremarkable. RAD/Chest 1 View (Portable) IMPRESSION: 1. Right midlung zone opacity. Repeat chest radiograph with lateral view recommended. 2. Mild bilateral pulmonary opacities, which may reflect pneumonitis or pneumonia. Reading Location: [id number] CC: Dr. Edouard Noland MD; Elliot Caceres DO ~ Poker Prop Player: Signed [facility] 01-21-2025 History of Present illness Narrative Images from the original note were not included. Primary Care Pharmacy Visit CC (Reason for Consult): Diabetes (E11.9) Controlled type 2 diabetes mellitus without complication, without long-term current use of insulin (HCC) (primary encounter diagnosis) Goal: A1c < 7% Last Collaborating Provider Visit: 01/12/25 Tresa Muñoz is a 54 year old male presenting for follow up visit telephone call. Patient consents to pharmacy collaborative practice agreement. Interim Events: 02/05: had recently started using CGM; no med changes fall: Pt was planning to resume T2DM mngt with PCP, but was advised to continue following with pharmacy for CGM report reviews 06/25: PharmD increased metformin 07/16: no med changes, encouraged more protein with breakfast to prevent PPG spikes 08/13: many sugars over 200s with post-meal spikes; PharmD increased metformin to 2000 mg a day and switched to ER formulation. Encouraged more protein with fiber. 09/10: reported some flu-like sx and myalgias with metformin; encouraged switching to ER formulation 10/21: no med changes, f/up scheduled with PharmD for after labs 01/03: no med changes 01/15: no med change; pt offered to sign-off but pt prefers periodic check-ins with PharmD; discussed indication for statin though pt declined, agreed to think about it 04/21: no med changes; statin declined 07/07: no med changes 10/06: pt was interested in learning more about Ozempic; statin recommended again and declined 01/12: Trulicity started, labs ordered HPI: Just recently switched to Trulicity, first dose was 01/19. Yesterday he felt a little nausea. Feeling better today. Still taking metformin 1500mg daily. States he just replaced his sensor yesterday. Thinks the last sensor was misplaced and caused falsely higher readings. So far his sugars with this new sensor are looking normal. Gets tired easily towards the end of the day. Current DM Medications: Dulaglutide (Trulicity) 0.75mg weekly on Mondays Metformin ER 500mg tabs - 1500mg daily CGM Data Preventative Medications: On KATE/ARB: No On Statin: No DIET/EXERCISE/SOCIAL Hx: Avoiding chips, fries, and potatoes Trying to eat more vegetables MEDICATIONS: Pill bottles are not present. Adherence: denies missed doses. Pharmacy: [facility] [address] [place] [id number] - [address] - [phone] Rx coverage: Payor: ANTHEM / Plan: BLUE CARD PPO OOS / Product Type: PPO / Medications affordable? Yes Diabetes Supplies: Yes Organization system: ACTIVE PROBLEM LIST Special Screening for Malignant Neoplasms, Colon Cervical Radiculitis Tinnitus, Right Mikhail (Obstructive Sleep Apnea) Elevated Blood Pressure Reading Without Diagnosis of Hypertension Ganglion Cyst Vitamin D Deficiency Diabetes Mellitus Type 2, Controlled, Without Complications (Hcc) Central Sleep Apnea Uses Bilevel Positive Airway Pressure (Bpap) Ventilation At Home PAST MEDICAL HISTORY Diagnosis Date Diabetes mellitus type 2, controlled, without complications (HCC) 01/02/2023 GERD (gastroesophageal reflux disease) Obstructive sleep apnea Past medical history reviewed. ALLERGIES Allergen Reactions Amoxil [Amoxicillin] Rash Animal Dander Intolerance nasal congestion Ketoconazole Rash blisters Medication List Medication Directions Comments Action/Plan APPLE CIDER VINEGAR ORAL Take 600 mg by mouth. aspirin, enteric coated (ASPIRIN, ENTERIC COATED) 81 mg EC tablet Take 81 mg by mouth once daily. taking blood sugar diagnostic (BLOOD GLUCOSE TEST) test strip Test blood sugar(s) 1 times daily. Dx: Type 2 DM - Controlled E11.9 Insulin: No Blood-Glucose Sensor (FREESTYLE WYATT 3 SENSOR) benjy Apply new sensor every fourteen (14) days to upper arm. cholecalciferol, vitamin D3, (VITAMIN D3 ORAL) Take 2,000 Units by mouth. CINNAMON With berberine CPAP/BIPAP/OTHER biPAP ST 16/11 cmH2O with BUR 12 DME [facility] dihydroberberine (BERBERINE ES-5 ORAL) Take 1 tablet by mouth once daily. dulaglutide (TRULICITY) 0.75 mg/0.5 mL pen injector Inject 0.75 mg subcutaneously one time a week. taking flash glucose sensor (FREESTYLE WYATT 2 SENSOR) kit Apply new sensor every fourteen (14) days to upper arm. gabapentin (NEURONTIN) 300 mg capsule Take 1 capsule after arriving home from work or 1 hour before bedtime. taking Lancets lancets Test blood sugar(s) 1 times daily. Dx: Type 2 DM - Controlled E11.9 Insulin: No loratadine 10 mg cap Take by mouth. Taking daily lutein-zeaxanthin 25-5 mg cap Take 1 capsule by mouth once daily. MAGNESIUM ORAL Take 400 mg by mouth. Discontinued: 01/12/2025 10:58 AM Still taking metformin multivitamin tablet Take 1 tablet by mouth once daily. OTC NUTRITIONAL SUPPLEMENT Sodium bytyrate sildenafil (VIAGRA) 100 mg tablet Take 1 tablet by mouth once daily as needed. Take 30-60 minutes before sexual activity. turmeric 400 mg cap Take 1 capsule by mouth once daily. ZINC ORAL Take 50 mg by mouth. Exam: There were no vitals taken for this visit. Last 3 Encounter BP Readings: Date: BP: 01/12/2025 122/82 09/01/2024 122/83 07/07/2024 116/82 Wt: 89.4 kg (197 lb) BMI: 25.29 kg/(m^2) LABS: Reviewed Lab Results Component Value Date HBA1C 6.6 01/12/2025 HBA1C 6.3 07/25/2024 HBA1C 6.4 01/01/2024 CMP: Glucose 178 01/13/2025 BUN 31 01/13/2025 Creatinine 1.55 01/13/2025 Sodium 138 01/13/2025 Potassium 4.0 01/13/2025 Chloride 101 01/13/2025 CO2 25 01/13/2025 Protein, Total 8.3 01/12/2025 Albumin 4.6 01/12/2025 Calcium 11.5 01/13/2025 Alkaline Phosphatase 139 01/13/2025 Bilirubin, Total 0.4 01/12/2025 AST 28 01/12/2025 ALT 22 01/12/2025 eGFR 54 Estimated Creatinine Clearance: 64.8 mL/min (A) (based on SCr of 1.55 mg/dL (H)). Lab Results Component Value Date CHOL 175 07/25/2024 CHOL 182 07/08/2014 LDL 89 07/25/2024 LDL 100 07/08/2014 HDL 28 07/25/2024 HDL 29 07/08/2014 TG 288 07/25/2024 TG 265 07/08/2014 The 10-year ASCVD risk score (Bertram ASTORGA, et al., 2019) is: 10.8% Values used to calculate the score: Age: 54 years Sex: Male Is Non- : No Diabetic: Yes Tobacco smoker: No Systolic Blood Pressure: 122 mmHg Is BP treated: No HDL Cholesterol: 28 mg/dL Total Cholesterol: 175 mg/dL Albumin/Creat Ratio (mg/g) Date Value 01/12/2025 <15 PHARMACOTHERAPY ASSESSMENT/PLAN: 1. Controlled type 2 diabetes mellitus without complication, without long-term current use of insulin (HCC) - ICD9: 250.00, ICD10: E11.9 A1c goal < 7%; controlled (last A1c 6.6%); TIR at goal; pt still taking metformin 1500mg daily; started Trulicity 2 days ago, so far tolerating well; no lows; no med changes today; will consider titrating up Trulicity and tapering off metformin over time CONTINUE current regimen Patient to send a MyC msg to me to update on DM and med tolerability the week of 02/01 or 02/09. At that time will review CGM report and consider increasing Trulicity Health Maintenance - Diabetes Topic Date Due Dilated Retinal Exam 03/21/2024 Follow-up Patient is scheduled to see PCP team on 03/09. MyChart f/up to occur in mid-January with PharmD. Patient verbalized understanding of instructions. Noble Lawson, Elian, BCPS Primary Care Clinical Pharmacist Time spent: 23 mins documented in this encounter [facility] 01-21-2025 Note HNO ID: [id number] Author: NOBLE LAWSON RPh Service: ? Author Type: Pharmacist Type: Progress Notes Filed: 01/21/2025 13:39 Note Text: Primary Care Pharmacy Visit CC (Reason for Consult): Diabetes (E11.9) Controlled type 2 diabetes mellitus without complication, without long-term current use of insulin ([facility]) (primary encounter diagnosis) Goal: A1c < 7% Last Collaborating Provider Visit: 01/12/25 Tresa Muñoz is a 54 year old male presenting for follow up visit telephone call. Patient consents to pharmacy collaborative practice agreement. Interim Events: 02/05: had recently started using CGM; no med changes fall: Pt was planning to resume T2DM mngt with PCP, but was advised to continue following with pharmacy for CGM report reviews 06/25: PharmD increased metformin 07/16: no med changes, encouraged more protein with breakfast to prevent PPG spikes 08/13: many sugars over 200s with post-meal spikes; PharmD increased metformin to 2000 mg a day and switched to ER formulation. Encouraged more protein with fiber. 09/10: reported some flu-like sx and myalgias with metformin; encouraged switching to ER formulation 10/21: no med changes, f/up scheduled with PharmD for after labs 01/03: no med changes 01/15: no med change; pt offered to sign-off but pt prefers periodic check-ins with PharmD; discussed indication for statin though pt declined, agreed to think about it 04/21: no med changes; statin declined 07/07: no med changes 10/06: pt was interested in learning more about Ozempic; statin recommended again and declined 01/12: Trulicity started, labs ordered HPI: Just recently switched to Trulicity, first dose was 01/19. Yesterday he felt a little nausea. Feeling better today. Still taking metformin 1500mg daily. States he just replaced his sensor yesterday. Thinks the last sensor was misplaced and caused falsely higher readings. So far his sugars with this new sensor are looking normal. Gets tired easily towards the end of the day. Current DM Medications: Dulaglutide (Trulicity) 0.75mg weekly on Mondays Metformin ER 500mg tabs - 1500mg daily CGM Data Preventative Medications: On KATE/ARB: No On Statin: No DIET/EXERCISE/SOCIAL Hx: Avoiding chips, fries, and potatoes Trying to eat more vegetables MEDICATIONS: Pill bottles are not present. Adherence: denies missed doses. Pharmacy: [facility] [address] [place] [id number] - [address] - [phone] 74 Rx coverage: Payor: ANTHEM / Plan: BLUE CARD PPO OOS / Product Type: PPO / Medications affordable? Yes Diabetes Supplies: Yes Organization system: ACTIVE PROBLEM LIST Special Screening for Malignant Neoplasms, Colon Cervical Radiculitis Tinnitus, Right Mikhail (Obstructive Sleep Apnea) Elevated Blood Pressure Reading Without Diagnosis of Hypertension Ganglion Cyst Vitamin D Deficiency Diabetes Mellitus Type 2, Controlled, Without Complications (Hcc) Central Sleep Apnea Uses Bilevel Positive Airway Pressure (Bpap) Ventilation At Home PAST MEDICAL HISTORY Diagnosis Date Diabetes mellitus type 2, controlled, without complications (HCC) 01/02/2023 GERD (gastroesophageal reflux disease) Obstructive sleep apnea Past medical history reviewed. ALLERGIES Allergen Reactions Amoxil [Amoxicillin] Rash Animal Dander Intolerance nasal congestion Ketoconazole Rash blisters Medication List Medication Directions Comments Action/Plan APPLE CIDER VINEGAR ORAL Take 600 mg by mouth. aspirin, enteric coated (ASPIRIN, ENTERIC COATED) 81 mg EC tablet Take 81 mg by mouth once daily. taking blood sugar diagnostic (BLOOD GLUCOSE TEST) test strip Test blood sugar(s) 1 times daily. Dx: Type 2 DM - Controlled E11.9 Insulin: No Blood-Glucose Sensor (FREESTYLE WYATT 3 SENSOR) benjy Apply new sensor every fourteen (14) days to upper arm. cholecalciferol, vitamin D3, (VITAMIN D3 ORAL) Take 2,000 Units by mouth. CINNAMON With berberine CPAP/BIPAP/OTHER biPAP ST 16/11 cmH2O with BUR 12 DME [facility] dihydroberberine (BERBERINE ES-5 ORAL) Take 1 tablet by mouth once daily. dulaglutide (TRULICITY) 0.75 mg/0.5 mL pen injector Inject 0.75 mg subcutaneously one time a week. taking flash glucose sensor (FREESTYLE WYATT 2 SENSOR) kit Apply new sensor every fourteen (14) days to upper arm. gabapentin (NEURONTIN) 300 mg capsule Take 1 capsule after arriving home from work or 1 hour before bedtime. taking Lancets lancets Test blood sugar(s) 1 times daily. Dx: Type 2 DM - Controlled E11.9 Insulin: No loratadine 10 mg cap Take by mouth. Taking daily lutein-zeaxanthin 25-5 mg cap Take 1 capsule by mouth once daily. MAGNESIUM ORAL Take 400 mg by mouth. Discontinued: 01/12/2025 10:58 AM Still taking metformin multivitamin tablet Take 1 tablet by mouth once daily. OTC NUTRITIONAL SUPPLEMENT Sodium bytyrate sildenafil (VIAGRA) 100 mg tablet Take 1 tablet by mouth once daily as needed. T (more content not included)... [facility] 01-19-2025 History of Present illness Narrative Radiology Service Progress Note PATIENT NAME: Tresa Muñoz DATE OF SERVICE: January 19, 2025 TIME: 11:13 AM PATIENT IDENTITY VERIFICATION COMPLETED USING TWO (2) IDENTIFIERS: Name and Date of confirmed by patient verbally. FALL SCREENING: Has the patient had 2 falls in the last year or 1 fall with injury or currently using an Ambulatory Assistive Device (Walker, Cane, Wheelchair, Crutches, etc.)? No PATIENT GENDER DATA: Assigned male at PATIENT RELEVANT IMPLANT DATA REVIEWED: Not Applicable PATIENT PRESENTS WITH AN IMPLANTABLE OR ATTACHED FOUR ROLL CALENDER OPERATOR: No RADIOLOGY DEPARTMENT: Ultrasound PERIPHERAL IV DATA: Not applicable SIGNED BY: Porsha De Paz RDMS RVKody January 19, 2025 11:13 AM documented in this encounter [facility] 01-19-2025 Note HNO ID: [id number] Author: PORSHA DE PAZ RDMS Service: ? Author Type: Photography Manager Type: Progress Notes Filed: 01/19/2025 11:13 Note Text: Radiology Service Progress Note PATIENT NAME: Tresa Muñoz DATE OF SERVICE: January 19, 2025 TIME: 11:13 AM PATIENT IDENTITY VERIFICATION COMPLETED USING TWO (2) IDENTIFIERS: Name and Date of confirmed by patient verbally. FALL SCREENING: Has the patient had 2 falls in the last year or 1 fall with injury or currently using an Ambulatory Assistive Device (Walker, Cane, Wheelchair, Crutches, etc.)? No PATIENT GENDER DATA: Assigned male at PATIENT RELEVANT IMPLANT DATA REVIEWED: Not Applicable PATIENT PRESENTS WITH AN IMPLANTABLE OR ATTACHED FOUR ROLL CALENDER OPERATOR: No RADIOLOGY DEPARTMENT: Ultrasound PERIPHERAL IV DATA: Not applicable SIGNED BY: Porsha De Paz RDMS RVT January 19, 2025 11:13 AM [facility] 01-16-2025 Telephone encounter Note Spoke with patient is feeling overall ok. Couple of rough days but doing ok now. They are currently stuck in [place] with their van broken down. Will call when they get home to schedule. [facility] 01-16-2025 Miscellaneous Notes Spoke with patient is feeling overall ok. Couple of rough days but doing ok now. They are currently stuck in [place] with their van broken down. Will call when they get home to schedule. See below. He did not read the my chart. We are still waiting on his pthrp but it takes a while. His vit d is high and liver alk phos is up. Needs liver us also. Make sure has follow up with one of when back in [facility]. I am still waiting on all your labs. If you feels worse, please go to Er in [place]. Follow up with one of us when you return. Your one vit d test is high. Again, I would stop all supplements. I am hoping they are the culprit and driving your calcium and vit d too high which in turn is dehydrating you. We will contact you when we get all the labs back. documented in this encounter [facility] 01-16-2025 Telephone encounter Note See below. He did not read the my chart. We are still waiting on his pthrp but it takes a while. His vit d is high and liver alk phos is up. Needs liver us also. Make sure has follow up with one of when back in [facility]. I am still waiting on all your labs. If you feels worse, please go to Er in [place]. Follow up with one of us when you return. Your one vit d test is high. Again, I would stop all supplements. I am hoping they are the culprit and driving your calcium and vit d too high which in turn is dehydrating you. We will contact you when we get all the labs back. [facility] 01-14-2025 Telephone encounter Note Trulicity has been approved. Mailbox is full unable to leave a message for patient. Will send Mychart message. [facility] 01-14-2025 Miscellaneous Notes Trulicity has been approved. Mailbox is full unable to leave a message for patient. Will send Mychart message. Can we see if there is any way we can get assistance for the trulicity. Those herbs may well be contributing to his calcium and likely are not helping his sugar. Pt's is asking if they hold all supplements how are they supposed to keep his sugar down because that is what they have been using. --She is asking if the Pt can still take his Tumeric, Berberine, Apple Cider Vinegar, and Sodium Butyrate as she gives these to him for his BS-- [facility] Leonora Smith LPN I would hold on any supplements Pt's called and is notified of providers results and instructions. She voices understanding.She reports Pt already took his multi-vitamin and Glucerna this morning. Multi-vitamin had 210 mg of Ca and Glucerna had 250 mg Ca. She will have him hold those after today. Information sent to Pt's MyChart per 's request. She said taking his pills with a glass of milk would spike his sugar more than the Glucerna. She is asking if the Pt can still take his Tumeric, Berberine, Apple Cider Vinegar, and Sodium Butyrate as she gives these to him for his BS. She states the PA has not gone through for [facility] yet. Pt will come in to get his labs done today, as they will be leaving on vacation. Please call and advise. Patti Drew RN Not all his labs are back, however, his calcium is highly elevated. His alk phos is up slightly. His kidney function is lower. Stop all supplements. They might be contributing. Push fluids. Recheck repeat labs today or tomorrow. We need to follow that calcium very closely. I need to verify it is real, not high enough I have to send him to the er but high enough I need to sort out what Is causing it If having any muscle spasms or severe muscle pain etc, call or ER documented in this encounter [facility] 01-13-2025 Telephone encounter Note Ok. Patient is declining treatment. Will await pending labs. Thank you [facility] 01-13-2025 Miscellaneous Notes Ok. Patient is declining treatment. Will await pending labs. Thank you Spoke with patient and reviewed provider's message with him. Patient reports that he already left for [place]. Advised patient I could forward the information to one of the ER's along the way to [place] or in [place] if he could provide Name of the hospital. Patient declined and stated he was just going to watch what he ate and increase his fluid intake. Advised patient that I would let Dr Noland know. Inez Oviedo LPN Not all labs are back. But just called with a a critically high ionized calcium. Can cause symptoms like the numbness and tingling etc. High calcium can be an emergency. It is high enough, he likely requires iv fluids and may need further work up. Send to Er of his choice. Fax yesterdays notes, todays critical calcium and labs documented in this encounter [facility] 01-13-2025 Telephone encounter Note Images from the original note were not included. rior authorization approved Payer: [employer] [phone] Note from payer: CaseId:[id number];Status:Approved;Re view Type:Prior Auth;Coverage Start Date:12/14/2024;Coverage End Date:01/13/2026; Approval Details Authorized from December 14, 2024 to January 13, 2026 Electronic appeal: Not supported View History Pharmacy Benefits Open Encounter TRESA MUÑOZ ([employer]) Covered: Retail, Mail Order Unknown: Specialty, Long-Term Care BIN: [id number] : 1970 Group ID: [id number] PCN: [id number] Legal sex: M Group name: [employer] Address: [address] [place] [address] Medication Being Authorized dulaglutide (TRULICITY) 0.75 mg/0.5 mL pen injector Inject 0.75 mg subcutaneously one time a week. Dispense: 6 mL Refills: 3 Start: 01/12/2025 End: 01/12/2026 Class: Normal Diagnoses: Controlled type 2 diabetes mellitus without complication, without long-term current use of insulin (HCC) This order has been released to its destination. To be filled at: [facility] [address] [place] [phone] - [address] - [phone] Pharmacy notified. [facility] 01-13-2025 Miscellaneous Notes Images from the original note were not included. rior authorization approved Payer: [employer] [phone] Note from payer: CaseId:[id number];Status:Approved;Re view Type:Prior Auth;Coverage Start Date:12/14/2024;Coverage End Date:01/13/2026; Approval Details Authorized from December 14, 2024 to January 13, 2026 Electronic appeal: Not supported View History Pharmacy Benefits Open Encounter TERSA MUÑOZ [employer] ([employer]) Covered: Retail, Mail Order Unknown: Specialty, Long-Term Care BIN: [id number] : 1970 Group ID: [id number] PCN: [id number] Legal sex: M Group name: [employer] Address: [address] [place], [place] [id number] Medication Being Authorized dulaglutide (TRULICITY) 0.75 mg/0.5 mL pen injector Inject 0.75 mg subcutaneously one time a week. Dispense: 6 mL Refills: 3 Start: 01/12/2025 End: 01/12/2026 Class: Normal Diagnoses: Controlled type 2 diabetes mellitus without complication, without long-term current use of insulin (HCC) This order has been released to its destination. To be filled at: [facility] [address] [place] [id number] - [address] [facility] - [phone] Pharmacy notified. Electronic PA rec'd and completed for dulaglutide (TRULICITY) 0.75 mg/0.5 mL pen injector documented in this encounter [facility] 01-13-2025 Telephone encounter Note Electronic JAYLON reddy and completed for dulaglutide (TRULICITY) 0.75 mg/0.5 mL pen injector [facility] 01-13-2025 Telephone encounter Note Spoke with patient and reviewed provider's message with him. Patient reports that he already left for [place]. Advised patient I could forward the information to one of the ER's along the way to [place] or in [place] if he could provide Name of the hospital. Patient declined and stated he was just going to watch what he ate and increase his fluid intake. Advised patient that I would let Dr Noland know. Inez Oviedo LPN [facility] 01-13-2025 Telephone encounter Note Not all labs are back. But just called with a a critically high ionized calcium. Can cause symptoms like the numbness and tingling etc. High calcium can be an emergency. It is high enough, he likely requires iv fluids and may need further work up. Send to Er of his choice. Fax yesterdays notes, todays critical calcium and labs [facility] 01-13-2025 Note HNO ID: [id number] Author: EDOUARD NOLAND MD Service: ? Author Type: Physician Type: Progress Notes Filed: 01/13/2025 15:49 Note Text: Tresa Muñoz is a 54-year-old male with a history of T2DM, MIKHAIL, and HTN, presenting for an initial visit and evaluation of medication intolerance, fatigue, and sexual dysfunction. HPI T2DM: - Managed with metformin, causing diarrhea at full dose. - Currently taking 2 tablets in the morning and 1 in the evening; tolerates up to 3 tablets. - Reports better control with sodium butyrate. - Daily blood glucose monitoring; recent readings in the 200s. - Last A1c on 11/03. - Sister has been on Trulicity for 2 years with good results. - Lost 7 lbs since last visit; highest weight was 213 lbs. - Diet includes chicken, avoids fries, and consumes Ensure in the morning. - Due for an eye exam; last exam was a couple of years ago at [facility]. Fatigue: - Variable fatigue, requiring a daily nap before an 8-hour job. - MIKHAIL managed with BiPAP; issues with nasal mask due to sinus swelling. - reports snoring and apneic episodes. Sexual Dysfunction: - Reports erectile dysfunction; maintains libido and sexual desire. Paresthesia: - Numbness in hands and knees, worsening throughout the day. - Constant numbness in toes; intermittent numbness in legs. - Works on concrete floors; occasional back pain. - Hands swell during exercise, particularly biking. Tinnitus: - ENT evaluation revealed inner ear involvement; no effective treatment available. - Uses white noise and hearing aids for management. 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 - No pain or unusual bone fractures reported. MEDICATIONS: Current Outpatient Medications Medication Sig multivitamin tablet Take 1 tablet by mouth once daily. APPLE CIDER VINEGAR ORAL Take 600 mg by mouth. OTC NUTRITIONAL SUPPLEMENT Sodium bytyrate CPAP/BIPAP/OTHER biPAP ST 16/11 cmH2O with BUR 12 DME [facility] lutein-zeaxanthin 25-5 mg cap Take 1 capsule by mouth once daily. turmeric 400 mg cap Take 1 capsule by mouth once daily. loratadine 10 mg cap Take by mouth. aspirin, enteric coated (ASPIRIN, ENTERIC COATED) 81 mg EC tablet Take 81 mg by mouth once daily. MAGNESIUM ORAL Take 400 mg by mouth. cholecalciferol, vitamin D3, (VITAMIN D3 ORAL) Take 2,000 Units by mouth. ZINC ORAL Take 50 mg by mouth. CINNAMON With berberine dulaglutide (TRULICITY) 0.75 mg/0.5 mL pen injector Inject 0.75 mg subcutaneously one time a week. sildenafil (VIAGRA) 100 mg tablet Take 1 tablet by mouth once daily as needed. Take 30-60 minutes before sexual activity. gabapentin (NEURONTIN) 300 mg capsule Take 1 capsule after arriving home from work or 1 hour before bedtime. dihydroberberine (BERBERINE ES-5 ORAL) Take 1 tablet by mouth once daily. Blood-Glucose Sensor (FREESTYLE WYATT 3 SENSOR) benjy Apply new sensor every fourteen (14) days to upper arm. flash glucose sensor (FREESTYLE WYATT 2 SENSOR) kit Apply new sensor every fourteen (14) days to upper arm. Lancets lancets Test blood sugar(s) 1 times daily. Dx: Type 2 DM - Controlled E11.9 Insulin: No blood sugar diagnostic (BLOOD GLUCOSE TEST) test strip Test blood sugar(s) 1 times daily. Dx: Type 2 DM - Controlled E11.9 Insulin: No No current facility-administered medications for this visit. ALLERGIES: ALLERGIES Allergen Reactions Amoxil [Amoxicillin] Rash Animal Dander Intolerance nasal congestion Ketoconazole Rash blisters PAST MEDICAL HISTORY Diagnosis Date Diabetes mellitus type 2, controlled, without complications ([facility]) 01/02/2023 GERD (gastroesophageal reflux disease) Obstructive sleep apnea PAST SURGICAL HISTORY Procedure Laterality Date COLONOSCOPY 03/19/2023 repeat in 10 years EYE SURGERY HX FRACTURE SURGERY LAPAROSCOPIC APPENDECTOMY 01/14/2016 PAST SURGICAL HISTORY OF 03/30/1990 right hand -- ORIF of 4th and 5th metacarpals FAMILY HISTORY Problem Relation Age of Onset Breast Cancer Mother other (smoker) Father Thyroid Sister uncertain, ? under No Known Problems Brother Hypertension Maternal Grandmother Stroke Maternal Grandmother Heart Attack Maternal Grandfather Alzheimer's Disease Paternal Grandmother Stroke Paternal Grandfather Diabetes Maternal Uncle Cancer Maternal Uncle unknown Social History Tobacco Use Smoking status: Never Smokeless tobacco: Never Vaping Use Vaping status: Never Used Substance Use Topics Alcohol use: No Drug use: No Reviewed current medications, allergies, past medical history, surgical history, family history and social history today. REVIEW OF SYSTEMS Constitutional: (+) fatigue, (+) weight loss Ears/Nose/Mouth/Throat: (+) snoring, (+) sinus swelling, (+) mouth sores with delayed healing Cardiovascular: (-) chest pain, (-) palpitations, (-) syncope, (-) peripheral edema Respiratory: (+ (more content not included)... [facility] 01-13-2025 Telephone encounter Note Can we see if there is any way we can get assistance for the trulicity. Those herbs may well be contributing to his calcium and likely are not helping his sugar. [facility] 01-13-2025 Telephone encounter Note Pt's is asking if they hold all supplements how are they supposed to keep his sugar down because that is what they have been using. --She is asking if the Pt can still take his Tumeric, Berberine, Apple Cider Vinegar, and Sodium Butyrate as she gives these to him for his BS-- Still waiting on PA for Trulicity. Leonora Smith LPN [facility] 01-13-2025 Telephone encounter Note I would hold on any supplements [facility] 01-13-2025 Telephone encounter Note Pt's called and is notified of providers results and instructions. She voices understanding.She reports Pt already took his multi-vitamin and Glucerna this morning. Multi-vitamin had 210 mg of Ca and Glucerna had 250 mg Ca. She will have him hold those after today. Information sent to Pt's MyChart per 's request. She said taking his pills with a glass of milk would spike his sugar more than the Glucerna. She is asking if the Pt can still take his Tumeric, Berberine, Apple Cider Vinegar, and Sodium Butyrate as she gives these to him for his BS. She states the PA has not gone through for Trulicity yet. Pt will come in to get his labs done today, as they will be leaving on vacation. Please call and advise. Patti Drew RN [facility] 01-13-2025 Telephone encounter Note Not all his labs are back, however, his calcium is highly elevated. His alk phos is up slightly. His kidney function is lower. Stop all supplements. They might be contributing. Push fluids. Recheck repeat labs today or tomorrow. We need to follow that calcium very closely. I need to verify it is real, not high enough I have to send him to the er but high enough I need to sort out what Is causing it If having any muscle spasms or severe muscle pain etc, call or ER [facility] 01-12-2025 Instructions Edouard Noland MD - 01/12/2025 11:20 AM EDT BONE MINERAL DENSITY PATIENT INSTRUCTIONS ======= Bone mineral density testing measures the amount of calcium in certain parts of your bones. This information determines how strong your bones are. The test is used to detect osteoporosis, a disease in which the bone's mineral content and density are low, increasing a person's risk of fractures. The lumbar spine (lower back) and the hip are the skeletal sites usually examined. For the test, remember that: 1. You cannot take this test if you are . 2. Eat a normal diet on the day of the test. 3. Take your medications as you normally would. 4. DO NOT take calcium supplements (such as Tums) for 24 hours before the test. 5. On the day of the test, leave valuables (jewelry or credit cards) at home. 6. The test should be performed prior to oral, rectal or IV contrast studies, or at least 7 days after any of these studies. For the test, you may be asked to wear a hospital gown. You will lie on your back, on a padded table, in a comfortable position. Generally, you can resume your usual activities immediately. - Continue taking metformin as you have been (two tablets in the morning and one in the evening). - Start weekly Trulicity (dulaglutide) 0.75 mg injection; prescription sent to your pharmacy. Monitor for any gut side effects and let me know if you cannot tolerate it or insurance won t cover. - Check your blood sugar daily, record the results, and send a list via [facility] in two weeks so we can decide if we need to adjust your doses. - Get the following non-fasting labs drawn (you can do them today before your trip if convenient): CBC (complete blood count) CMP (kidney and liver function, electrolytes) A1c Vitamin D, vitamin B12, folate TSH (thyroid) Testosterone and PSA Parathyroid panel (calcium) Protein electrophoresis Urine microalbumin - I will order a DEXA bone density scan to evaluate your bone health; please check with your insurance and schedule it. - Contact your sleep medicine provider to discuss switching from a nasal BiPAP mask to a full-face mask for better comfort and reduced snoring. - Schedule an eye exam with [facility]. - Fill and use Viagra (sildenafil) 100 mg tablets: take one dose 30-60 minutes before activity, do not exceed 100 mg in 24 hours; insurance typically covers up to six per month. - For your foot numbness and high arches, consider using supportive insoles or getting a deep foot massage to relieve discomfort. - Think about shingles and pneumococcal vaccines; check your insurance for coverage and plan to get them when you can. - Follow up in 6-8 weeks to review your lab results, blood sugar log, and fatigue. Repeat A1c in six months. documented in this encounter [facility] 10-06-2024 History of Present illness Narrative Images from the original note were not included. Primary Care Pharmacy Visit CC (Reason for Consult): Diabetes (E11.9) Controlled type 2 diabetes mellitus without complication, without long-term current use of insulin (HCC) (primary encounter diagnosis) Goal: A1c < 7% Last Collaborating Provider Visit: 07/17/24 Tresa Muñoz is a 54 year old male presenting for follow up visit telephone call. Patient consents to pharmacy collaborative practice agreement. Interim Events: 02/05: had recently started using CGM; no med changes fall: Pt was planning to resume T2DM mngt with PCP, but was advised to continue following with pharmacy for CGM report reviews 06/25: PharmD increased metformin 07/16: no med changes, encouraged more protein with breakfast to prevent PPG spikes 08/13: many sugars over 200s with post-meal spikes; PharmD increased metformin to 2000 mg a day and switched to ER formulation. Encouraged more protein with fiber. 09/10: reported some flu-like sx and myalgias with metformin; encouraged switching to ER formulation 10/21: no med changes, f/up scheduled with PharmD for after labs 01/03: no med changes 01/15: no med change; pt offered to sign-off but pt prefers periodic check-ins with PharmD; discussed indication for statin though pt declined, agreed to think about it 04/21: no med changes; statin declined 07/07: no med changes HPI: Having occasional GI issues. Diarrhea 1-2 episodes about 1-2x/week, this happens every 1-2 weeks. He thinks it may be connect to dairy. Thinks it started about 1-2 months ago. No mucus or blood in stool. No fever. Thinks Bgs were higher last week, thought maybe he had a GI bug. Bgs are better now. If sugars drop <100, gets cold chills. Has happened a few times. Nothing below 70 mg/dL. Sister is on Ozempic. Is wanting to learn more about it. Personal goals: wants to strengthen his legs, still has issue climbing stairs after a long day of work. No super interested in weight loss. Current DM Medications: Metformin ER 500mg tabs - 2000mg daily CGM Data Preventative Medications: On KATE/ARB: No On Statin: No ROS: Patient denies CP, SOB, NUNEZ, blurred vision, dizziness or lightheadedness. Does report some occasional tightness in chest when breathes in deep, no wheezing. Thinks it is cold-related. Patient denies symptoms of hypoglycemia (sweating, anxiety, palpitations, hunger, and tremor) Patient denies symptoms of hyperglycemia (polyuria, polydipsia, polyphagia) Patient denies potential medication adverse effects DIET/EXERCISE/SOCIAL Hx: No changes MEDICATIONS: Pill bottles are not present. Adherence: denies missed doses. Pharmacy: [facility] [address] [place] [id number] - [address] - [phone] Rx coverage: Payor: ANTHEM / Plan: BLUE CARD PPO OOS / Product Type: PPO / Medications affordable? Yes Diabetes Supplies: Yes Organization system: ACTIVE PROBLEM LIST Special Screening for Malignant Neoplasms, Colon Cervical Radiculitis Tinnitus, Right Mikhail (Obstructive Sleep Apnea) Elevated Blood Pressure Reading Without Diagnosis of Hypertension Ganglion Cyst Obesity, Class I, Bmi 30-34.9 Vitamin D Deficiency Diabetes Mellitus Type 2, Controlled, Without Complications (Hcc) Central Sleep Apnea Uses Bilevel Positive Airway Pressure (Bpap) Ventilation At Home PAST MEDICAL HISTORY Diagnosis Date Diabetes mellitus type 2, controlled, without complications (HCC) 01/02/2023 GERD (gastroesophageal reflux disease) Obstructive sleep apnea Past medical history reviewed. ALLERGIES Allergen Reactions Amoxil [Amoxicillin] Rash Animal Dander Intolerance nasal congestion Ketoconazole Rash blisters Medication List Medication Directions Comments Action/Plan aspirin, enteric coated (ASPIRIN, ENTERIC COATED) 81 mg EC tablet Take 81 mg by mouth once daily. blood sugar diagnostic (BLOOD GLUCOSE TEST) test strip Test blood sugar(s) 1 times daily. Dx: Type 2 DM - Controlled E11.9 Insulin: No Blood-Glucose Sensor (FREESTYLE WYATT 3 SENSOR) benjy Apply new sensor every fourteen (14) days to upper arm. cholecalciferol, vitamin D3, (VITAMIN D3 ORAL) Take by mouth. CINNAMON None Entered CPAP/BIPAP/OTHER Bilevel ST 14/10 cmH2O with BUR 12 BPM [facility] dihydroberberine (BERBERINE ES-5 ORAL) Take 1 tablet by mouth once daily. flash glucose sensor (FREESTYLE WYATT 2 SENSOR) kit Apply new sensor every fourteen (14) days to upper arm. gabapentin (NEURONTIN) 300 mg capsule Take 1 capsule after arriving home from work or 1 hour before bedtime. Lancets lancets Test blood sugar(s) 1 times daily. Dx: Type 2 DM - Controlled E11.9 Insulin: No loratadine 10 mg cap Take by mouth. lutein-zeaxanthin 25-5 mg cap Take 1 capsule by mouth once daily. MAGNESIUM ORAL Take by mouth. metFORMIN ER (GLUCOPHAGE XR) 500 mg 24 hr tablet Take 4 tablets by mouth once daily. turmeric 400 mg cap Take 1 capsule by mouth once daily. ZINC ORAL Take by mouth. Exam: There were no vitals taken for this visit. Last 3 Encounter BP Readings: Date: BP: 09/01/2024 122/83 07/07/2024 116/82 04/18/2024 126/86 Wt: 93.5 kg (206 lb 3.2 oz) BMI: 26.47 kg/(m^2) LABS: Reviewed Lab Results Component Value Date HBA1C 6.3 07/25/2024 HBA1C 6.4 01/01/2024 HBA1C 6.9 06/26/2023 CMP: Glucose 160 07/25/2024 BUN 22 07/25/2024 Creatinine 1.02 07/25/2024 Sodium 141 07/25/2024 Potassium 4.7 07/25/2024 Chloride 103 07/25/2024 CO2 25 07/25/2024 Protein, Total 7.6 07/25/2024 Albumin 4.4 07/25/2024 Calcium 10.2 07/25/2024 Alkaline Phosphatase 124 08/13/2024 Bilirubin, Total 0.3 07/25/2024 AST 29 07/25/2024 ALT 30 07/25/2024 Estimated Creatinine Clearance: 98.5 mL/min (based on SCr of 1.02 mg/dL). Lab Results Component Value Date CHOL 175 07/25/2024 CHOL 182 07/08/2014 LDL 89 07/25/2024 LDL 100 07/08/2014 HDL 28 07/25/2024 HDL 29 07/08/2014 TG 288 07/25/2024 TG 265 07/08/2014 The 10-year ASCVD risk score (Bertram DK, et al., 2019) is: 10.8% Values used to calculate the score: Age: 54 years Sex: Male Is Non- : No Diabetic: Yes Tobacco smoker: No Systolic Blood Pressure: 122 mmHg Is BP treated: No HDL Cholesterol: 28 mg/dL Total Cholesterol: 175 mg/dL Albumin/Creat Ratio (mg/g) Date Value 01/09/2024 <9 PHARMACOTHERAPY ASSESSMENT/PLAN: 1. Controlled type 2 diabetes mellitus without complication, without long-term current use of insulin (HCC) - ICD9: 250.00, ICD10: E11.9 A1c goal < 7%; controlled (last A1c 6.3%); TIR at goal; no lows; feeling overall well; occasional GI issues but not certain it is med-related; pt interested in learning about Ozempic; doesn't have hx CAD, CKD, is not looking for weight loss; discussed pros/cons of Ozempic; discussed statin indication for primary prevention; no med changes today, pt wants to think about options; f/up after next PCP visit Continue current meds Strongly encouraged to consider statin therapy but declined at this time Patient reports occasional chest tightness when breathes in deeply. Happens usually with colder weather. Denies CP, severe NUNEZ, vision changes, palpitations. Advised to discuss with PCP team if continues or worsens. Advised to go to ED if accompanied with other alarm sx. Health Maintenance - Diabetes Topic Date Due Pneumococcal Vaccine: 50+ (1 of 2 - PCV) Never done Dilated Retinal Exam 03/21/2024 Follow-up Patient is scheduled to see PCP team on 01/12. Patient to have f/up with PharmD team on 01/21. Patient verbalized understanding of instructions. Noble Lawson PharmD, [facility] Primary Care Clinical Pharmacist Time spent: 22 mins documented in this encounter [facility] 10-06-2024 Note HNO ID: [id number] Author: NOBLE LAWSON RPh Service: ? Author Type: Pharmacist Type: Progress Notes Filed: 10/06/2024 13:35 Note Text: Primary Care Pharmacy Visit CC (Reason for Consult): Diabetes (E11.9) Controlled type 2 diabetes mellitus without complication, without long-term current use of insulin (HCC) (primary encounter diagnosis) Goal: A1c < 7% Last Collaborating Provider Visit: 07/17/24 Tresa Muñoz is a 54 year old male presenting for follow up visit telephone call. Patient consents to pharmacy collaborative practice agreement. Interim Events: 02/05: had recently started using CGM; no med changes fall: Pt was planning to resume T2DM mngt with PCP, but was advised to continue following with pharmacy for CGM report reviews 06/25: PharmD increased metformin 07/16: no med changes, encouraged more protein with breakfast to prevent PPG spikes 08/13: many sugars over 200s with post-meal spikes; PharmD increased metformin to 2000 mg a day and switched to ER formulation. Encouraged more protein with fiber. 09/10: reported some flu-like sx and myalgias with metformin; encouraged switching to ER formulation 10/21: no med changes, f/up scheduled with PharmD for after labs 01/03: no med changes 01/15: no med change; pt offered to sign-off but pt prefers periodic check-ins with PharmD; discussed indication for statin though pt declined, agreed to think about it 04/21: no med changes; statin declined 07/07: no med changes HPI: Having occasional GI issues. Diarrhea 1-2 episodes about 1-2x/week, this happens every 1-2 weeks. He thinks it may be connect to dairy. Thinks it started about 1-2 months ago. No mucus or blood in stool. No fever. Thinks Bgs were higher last week, thought maybe he had a GI bug. Bgs are better now. If sugars drop <100, gets cold chills. Has happened a few times. Nothing below 70 mg/dL. Sister is on Ozempic. Is wanting to learn more about it. Personal goals: wants to strengthen his legs, still has issue climbing stairs after a long day of work. No super interested in weight loss. Current DM Medications: Metformin ER 500mg tabs - 2000mg daily CGM Data Preventative Medications: On KATE/ARB: No On Statin: No ROS: Patient denies CP, SOB, NUNEZ, blurred vision, dizziness or lightheadedness. Does report some occasional tightness in chest when breathes in deep, no wheezing. Thinks it is cold-related. Patient denies symptoms of hypoglycemia (sweating, anxiety, palpitations, hunger, and tremor) Patient denies symptoms of hyperglycemia (polyuria, polydipsia, polyphagia) Patient denies potential medication adverse effects DIET/EXERCISE/SOCIAL Hx: No changes MEDICATIONS: Pill bottles are not present. Adherence: denies missed doses. Pharmacy: [facility] [address] [place] [phone] - [address] [facility] [phone] Rx coverage: Payor: ANTHEM / Plan: BLUE CARD PPO OOS / Product Type: PPO / Medications affordable? Yes Diabetes Supplies: Yes Organization system: ACTIVE PROBLEM LIST Special Screening for Malignant Neoplasms, Colon Cervical Radiculitis Tinnitus, Right Mikhail (Obstructive Sleep Apnea) Elevated Blood Pressure Reading Without Diagnosis of Hypertension Ganglion Cyst Obesity, Class I, Bmi 30-34.9 Vitamin D Deficiency Diabetes Mellitus Type 2, Controlled, Without Complications (Hcc) Central Sleep Apnea Uses Bilevel Positive Airway Pressure (Bpap) Ventilation At Home PAST MEDICAL HISTORY Diagnosis Date Diabetes mellitus type 2, controlled, without complications (HCC) 01/02/2023 GERD (gastroesophageal reflux disease) Obstructive sleep apnea Past medical history reviewed. ALLERGIES Allergen Reactions Amoxil [Amoxicillin] Rash Animal Dander Intolerance nasal congestion Ketoconazole Rash blisters Medication List Medication Directions Comments Action/Plan aspirin, enteric coated (ASPIRIN, ENTERIC COATED) 81 mg EC tablet Take 81 mg by mouth once daily. blood sugar diagnostic (BLOOD GLUCOSE TEST) test strip Test blood sugar(s) 1 times daily. Dx: Type 2 DM - Controlled E11.9 Insulin: No Blood-Glucose Sensor (FREESTYLE YWATT 3 SENSOR) benjy Apply new sensor every fourteen (14) days to upper arm. cholecalciferol, vitamin D3, (VITAMIN D3 ORAL) Take by mouth. CINNAMON None Entered CPAP/BIPAP/OTHER Bilevel ST 14/10 cmH2O with BUR 12 BPM DME [facility] dihydroberberine (BERBERINE ES-5 ORAL) Take 1 tablet by mouth once daily. flash glucose sensor (FREESTYLE WYATT 2 SENSOR) kit Apply new sensor every fourteen (14) days to upper arm. gabapentin (NEURONTIN) 300 mg capsule Take 1 capsule after arriving home from work or 1 hour before bedtime. Lancets lancets Test blood sugar(s) 1 times daily. Dx: Type 2 DM - Controlled E11.9 Insulin: No loratadine 10 mg cap Take by mouth. lutein-zeaxanthin 25-5 mg cap Take 1 capsule by mouth once daily. MAGNESIUM ORAL Take by mouth. metFORMIN ER (GLUCOPHAGE (more content not included)... [facility] 09-22-2024 Telephone encounter Note NOV 01/12/25 LES 07/07/24 [facility] 09-22-2024 Miscellaneous Notes 01/12/25 LES 07/07/24 documented in this encounter [facility] 09-01-2024 History of Present illness Narrative Images from the original note were not included. [facility] Follow up/ Established patient visit Date of last visit : 04/18/2024 The following Impression/Plan was copied and pasted from the patient's last [facility] visit on 04/18/24: IMPRESSION/PLAN: Central sleep apnea (primary encounter diagnosis) Mikhail (obstructive sleep apnea) Tresa Muñoz is a 53 year old male with 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 I reviewed with pt and his the titration study that was done on 02/09/24 at [facility] that should have been transitioned to biPAP but wasn't. It was started at CPAP 7 rather than 9 cmH2O as requested, and his AHI wasn't normalized including elevated centrals yet he wasn't transitioned to biPAP. We have requested [facility] retest him at no cost to the patient. Order for Bilevel titration starting at 8/4 cmH2O. Advance to biPAP ST if needed for central events. Will order new device from [facility], pt wants to switch to this DME Case discussed with Dr Ike Cowan, [employer]PERATOR Here for follow up for CSA on biPAP ST. He started biPAP ST in May 2024, he likes the device. Thinks his nasal pillows mask might not be the right size. He does have leaks. His notes when he sleeps on his back it seems like he isn't breathing, he typically sleeps on his side. Gets leg cramps. Gabapentin helps a lot, less leg cramping in calves, now mostly in lower legs, legs are less achy when he takes it SLEEP APNEA Sleep apnea type : CSA and MIKHAIL Most Recent Apnea-Hypopnea Index (AHI): 71 Treatment : [facility] P[facility] History: Uses Bilevel PAP ST for 6 hours per night, 7 nights per week. Current PAP settin/9 cm H2O with BUR 12 BPM Difficulties with Bilevel PAP ST: None Reviewed objective PAP compliance data: AHI 9.1 for the past week (reviewed on pt's gideon) 07/08/24-09/01/24 download: AHI 10.1 Mask type: nasal pillow interface Mask issues: improper mask fit, he plans to check with [facility] There is a perceived benefit by the patient: no jerking awake or gasping awake ------- SLEEP HYGIENE QUESTIONS: Bedtime : around 130 am (works 2nd shift) Wake up Time : 730-830 am Time it takes to fall sleep : varies Number of times patient wakes up per night : 0-1 unknown reason Estimated total sleep time ( in a 24 hour period of time) : 5.5 Naps : occas 30-60 min before work Patient Questionnaires Sleep Scores 09/01/2024 Sleep Questions Reason for visit: Sleep apnea On average, hours of sleep in 24 hours: 5.5 Accidents or near accidents due to drowsy drivin 09/01/2024 [place] Sleepiness Scale Score 9 (No clinically significant daytime sleepiness) 09/01/2024 PROMIS CAT Sleep Disturbance PROMIS Sleep Disturbance T-Score 44 (within normal limits) PROMIS Sleep Disturbance Percentile 73 01/14/2024 Insomnia Severity Index Score 12 09/01/2024 Restless Leg Syndrome Score 17 (Moderate symptoms) 09/01/2024 PHQ-9 Score 3 09/01/2024 PROMIS Global Health - (T-Scores - the mean of general population = 50. Five points is a clinically meaningful difference.) Physical T-Score 47.7 Mental T-Score 45.8 ALLERGIES Allergen Reactions Amoxil [Amoxicillin] Rash Animal Dander Intolerance nasal congestion Ketoconazole Rash blisters CURRENT MEDICATIONS: dihydroberberine (BERBERINE ES-5 ORAL) Take 1 tablet by mouth once daily. Blood-Glucose Sensor (FREESTYLE WYATT 3 SENSOR) benjy Apply new sensor every fourteen (14) days to upper arm. flash glucose sensor (FREESTYLE WYATT 2 SENSOR) kit Apply new sensor every fourteen (14) days to upper arm. metFORMIN ER (GLUCOPHAGE XR) 500 mg 24 hr tablet Take 4 tablets by mouth once daily. lutein-zeaxanthin 25-5 mg cap Take 1 capsule by mouth once daily. turmeric 400 mg cap Take 1 capsule by mouth once daily. loratadine 10 mg cap Take by mouth. aspirin, enteric coated (ASPIRIN, ENTERIC COATED) 81 mg EC tablet Take 81 mg by mouth once daily. MAGNESIUM ORAL Take by mouth. cholecalciferol, vitamin D3, (VITAMIN D3 ORAL) Take by mouth. ZINC ORAL Take by mouth. CINNAMON Lancets lancets Test blood sugar(s) 1 times daily. Dx: Type 2 DM - Controlled E11.9 Insulin: No blood sugar diagnostic (BLOOD GLUCOSE TEST) test strip Test blood sugar(s) 1 times daily. Dx: Type 2 DM - Controlled E11.9 Insulin: No COMPOUNDED PRESCRIPTION Nasal mask for CPAP and any other necessary supplies such as tubing #1 G47.33 MIKHAIL (obstructive sleep apnea) (primary encounter diagnosis) COMPOUNDED PRESCRIPTION Mask (per patient preference) optional chin strap (if indicated) , filters, tubing, humidifier and lifetime supplies. Dx. MIKHAIL G47.33 COMPOUNDED PRESCRIPTION cpap supplies, including mask. DX: MIKHAIL COMPOUNDED PRESCRIPTION Initiate CPAP @ 11 cm of water with humidification. EPR setting of 3. Mask (per patient preference) Mirage FX wide was used during study. Chin strap (if indicated) tubing, filters, humidifier and lifetime supplies. Dx. Central Sleep Apnea 327.2 CPAP/BIPAP/OTHER Bilevel ST 14/10 cmH2O with BUR 12 BPM [facility] gabapentin (NEURONTIN) 300 mg capsule Take 1 capsule after arriving home from work or 1 hour before bedtime. PHYSICAL EXAMINATION: Vital Signs: BP 122/83 Pulse 83 Resp 18 Wt 93.5 kg (206 lb 3.2 oz) SpO2 98% BMI 26.47 kg/m PHYSICAL EXAM: General appearance: pleasant, NAD Mental status: alert and oriented, able to provide own history Constitutional: WNL Skin: No visible rashes on exposed skin Neuro: No focal deficits observed, no tremors IMPRESSION: Central sleep apnea (primary encounter diagnosis) Mikhail (obstructive sleep apnea) Uses bilevel positive airway pressure (bpap) ventilation at home Rls (restless legs syndrome) Plmd (periodic limb movement disorder) Tresa Muñoz is a 54 year old male with CSA, MIKHAIL, biPAP ST use, PLMD which is improved on gabapentin, DM2 --Patient is compliant with PAP therapy and reports subjective benefits from treatment --We reviewed PAP compliance report; AHI is not yet normalized PLAN: - Continue Bilevel PAP ST but increase pressure from 13/9 to 14/10 cmH2O with BUR 12 BPM - I'll check a download in 2 wks to see how his residual AHI is responding to the pressure increase - Remember to clean your mask and equipment regularly, as directed. - You should be eligible for new supplies approximately every 3-6 months, depending on your insurance coverage. Contact your Durable Medical Equipment (DME) company for new supplies as needed. - Follow up in [address] Ramires - gabapentin 300 mg refilled Jh Cowan APRN.CNP PDMP website checked and validated. All prescriptions have been APPROPRIATELY filled. No suspicious activity was identified. 09/02/2024 by Jh Cowan APRN.RUBIN documented in this encounter [facility] 09-01-2024 Note HNO ID: [id number] Author: JH COWAN APRN.CNP Service: ? Author Type: Nurse Practitioner Type: Progress Notes Filed: 09/02/2024 16:20 Note Text: [facility] Follow up/ Established patient visit Date of last visit : 04/18/2024 The following Impression/Plan was copied and pasted from the patient's last [facility] visit on 04/18/24: IMPRESSION/PLAN: Central sleep apnea (primary encounter diagnosis) Mikhail (obstructive sleep apnea) Tresa Muñoz is a 53 year old male with 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 I reviewed with pt and his the titration study that was done on 02/09/24 at [facility] that should have been transitioned to biPAP but wasn't. It was started at CPAP 7 rather than 9 cmH2O as requested, and his AHI wasn't normalized including elevated centrals yet he wasn't transitioned to biPAP. We have requested [facility] retest him at no cost to the patient. Order for Bilevel titration starting at 8/4 cmH2O. Advance to biPAP ST if needed for central events. 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 He started biPAP ST in May 2024, he likes the device. Thinks his nasal pillows mask might not be the right size. He does have leaks. His notes when he sleeps on his back it seems like he isn't breathing, he typically sleeps on his side. Gets leg cramps. Gabapentin helps a lot, less leg cramping in calves, now mostly in lower legs, legs are less achy when he takes it SLEEP APNEA Sleep apnea type : CSA and MIKHAIL Most Recent Apnea-Hypopnea Index (AHI): 71 Treatment : PAP therapy DME: [facility] PAP History: Uses Bilevel PAP ST for 6 hours per night, 7 nights per week. Current PAP settin/9 cm H2O with BUR 12 BPM Difficulties with Bilevel PAP ST: None Reviewed objective PAP compliance data: AHI 9.1 for the past week (reviewed on pt's gideon) 07/08/24-09/01/24 download: AHI 10.1 Mask type: nasal pillow interface Mask issues: improper mask fit, he plans to check with [facility] There is a perceived benefit by the patient: no jerking awake or gasping awake SLEEP HYGIENE QUESTIONS: Bedtime : around 130 am (works 2nd shift) Wake up Time : 730-830 am Time it takes to fall sleep : varies Number of times patient wakes up per night : 0-1 unknown reason Estimated total sleep time ( in a 24 hour period of time) : 5.5 Naps : occas 30-60 min before work Patient Questionnaires Sleep Scores 09/01/2024 Sleep Questions Reason for visit: Sleep apnea On average, hours of sleep in 24 hours: 5.5 Accidents or near accidents due to drowsy drivin 09/01/2024 [place] Sleepiness Scale Score 9 (No clinically significant daytime sleepiness) 09/01/2024 PROMIS CAT Sleep Disturbance PROMIS Sleep Disturbance T-Score 44 (within normal limits) PROMIS Sleep Disturbance Percentile 73 01/14/2024 Insomnia Severity Index Score 12 09/01/2024 Restless Leg Syndrome Score 17 (Moderate symptoms) 09/01/2024 PHQ-9 Score 3 09/01/2024 PROMIS Global Health - (T-Scores - the mean of general population = 50. Five points is a clinically meaningful difference.) Physical T-Score 47.7 Mental T-Score 45.8 ALLERGIES Allergen Reactions Amoxil [Amoxicillin] Rash Animal Dander Intolerance nasal congestion Ketoconazole Rash blisters CURRENT MEDICATIONS: dihydroberberine (BERBERINE ES-5 ORAL) Take 1 tablet by mouth once daily. Blood-Glucose Sensor (FREESTYLE WYATT 3 SENSOR) benjy Apply new sensor every fourteen (14) days to upper arm. flash glucose sensor (FREESTYLE WYATT 2 SENSOR) kit Apply new sensor every fourteen (14) days to upper arm. metFORMIN ER (GLUCOPHAGE XR) 500 mg 24 hr tablet Take 4 tablets by mouth once daily. lutein-zeaxanthin 25-5 mg cap Take 1 capsule by mouth once daily. turmeric 400 mg cap Take 1 capsule by mouth once daily. loratadine 10 mg cap Take by mouth. aspirin, enteric coated (ASPIRIN, ENTERIC COATED) 81 mg EC tablet Take 81 mg by mouth once daily. MAGNESIUM ORAL Take by mouth. cholecalciferol, vitamin D3, (VITAMIN D3 ORAL) Take by mouth. ZINC ORAL Take by mouth. CINNAMON Lancets lancets Test blood sugar(s) 1 times daily. Dx: Type 2 DM - Controlled E11.9 Insulin: No blood sugar diagnostic (BLOOD GLUCOSE TEST) test strip Test blood sugar(s) 1 times daily. Dx: Type 2 DM - Controlled E11.9 Insulin: No COMPOUNDED PRESCRIPTION Nasal mask for CPAP and any other necessary supplies such as tubing #1 G47.33 MIKHAIL (obstructive sleep apnea) (primary encounter diagnosis) COMPOUNDED PRESCRIPTION Mask (per patient preference) optional chin strap (if indicated) , filters, tubing, humidifier and lifetime supplies. Dx. MIKHAIL G47.33 COMP (more content not included)... [facility] 07-31-2024 Telephone encounter Note Pt called and is notified of providers results and instructions. Pt voices understanding. Patti Drew RN [facility] 07-31-2024 Miscellaneous Notes Pt called and is notified of providers results and instructions. Pt voices understanding. Patti Drew RN Can please let patient know that I received his lab results. It still shows borderline thyroid levels (subclinical hypothyroidism). We just need to continue to keep an eye on this. His alk phos was just a little elevated. This is an enzyme that can either come from a bone source or a liver source. I would like to have him recheck this in the next few weeks to ensure stability. The order is in, he just needs to stop in at his convenience. He does not need to fast. Everything else looks normal/stable. Bobbi Hart APRN.RUBIN documented in this encounter [facility] 07-29-2024 Telephone encounter Note Can please let patient know that I received his lab results. It still shows borderline thyroid levels (subclinical hypothyroidism). We just need to continue to keep an eye on this. His alk phos was just a little elevated. This is an enzyme that can either come from a bone source or a liver source. I would like to have him recheck this in the next few weeks to ensure stability. The order is in, he just needs to stop in at his convenience. He does not need to fast. Everything else looks normal/stable. Bobbi Hart APRN.RUBIN [facility] 07-07-2024 Instructions Bobbi Hart APRN.CNP - 07/07/2024 9:08 AM EST Return for fasting labs. Continue the same medications. Recheck in 6 months. Sooner if needed. documented in this encounter [facility] 07-07-2024 Note HNO ID: [id number] Author: BOBBI HART APRN.CNP Service: ? Author Type: Nurse Practitioner Type: Progress Notes Filed: 07/08/2024 08:18 Note Text: This is a 53 year old male who presents today with: Patient presents with: 6 Month Exam HISTORY OF PRESENT ILLNESS: Tresa Muñoz is a 53 year old male. Patient presents with: 6 Month Exam DM: Reports overall feeling well. Medication side effects: Yes still with intermittent diarrhea. Home sugar checks: averages around 150. Hypoglycemic spells: No. Watching diet: Yes. Actually changed from milk to Glucerna because less spike in blood sugar. Unexpected weight loss: No. Polyuria, polydipsia: No. Vision Changes: No. Foot lesions or numbness or pain: anything from knees down. Feet are numb. Follows with clinical pharmacy. Sleep apnea Using cpap. Following with sleep medicine. PAST MEDICAL HISTORY: PAST MEDICAL HISTORY Diagnosis Date Diabetes mellitus type 2, controlled, without complications ([facility]) 01/02/2023 GERD (gastroesophageal reflux disease) Obstructive sleep apnea PAST SURGICAL HISTORY Procedure Laterality Date COLONOSCOPY 03/19/2023 repeat in 10 years EYE SURGERY HX FRACTURE SURGERY LAPAROSCOPIC APPENDECTOMY 01/14/2016 PAST SURGICAL HISTORY OF 03/30/1990 right hand -- ORIF of 4th and 5th metacarpals ALLERGIES Amoxil [Amoxicillin], Animal Dander, and Ketoconazole MEDICATIONS Current Outpatient Medications Medication Sig CPAP/BIPAP/OTHER biPAP ST 13/9 cmH2O with BUR 12 bpm DME [facility] gabapentin (NEURONTIN) 300 mg capsule Take 1 capsule after arriving home from work or 1 hour before bedtime. dihydroberberine (BERBERINE ES-5 ORAL) Take 1 tablet by mouth once daily. Blood-Glucose Sensor (FREESTYLE WYATT 3 SENSOR) benjy Apply new sensor every fourteen (14) days to upper arm. flash glucose sensor (FREESTYLE WYATT 2 SENSOR) kit Apply new sensor every fourteen (14) days to upper arm. metFORMIN ER (GLUCOPHAGE XR) 500 mg 24 hr tablet Take 4 tablets by mouth once daily. lutein-zeaxanthin 25-5 mg cap Take 1 capsule by mouth once daily. turmeric 400 mg cap Take 1 capsule by mouth once daily. VITAMIN A ORAL Take by mouth. loratadine 10 mg cap Take by mouth. MEDICATION, NON-DATABASE [place] [employer] aspirin, enteric coated (ASPIRIN, ENTERIC COATED) 81 mg EC tablet Take 81 mg by mouth once daily. MAGNESIUM ORAL Take by mouth. cholecalciferol, vitamin D3, (VITAMIN D3 ORAL) Take by mouth. ZINC ORAL Take by mouth. vit C/E/Zn/coppr/lutein/zeaxan (PRESERVISION AREDS-2 ORAL) Take by mouth. CINNAMON ascorbic acid (VITAMIN C ORAL) Take by mouth. Lancets lancets Test blood sugar(s) 1 times daily. Dx: Type 2 DM - Controlled E11.9 Insulin: No blood sugar diagnostic (BLOOD GLUCOSE TEST) test strip Test blood sugar(s) 1 times daily. Dx: Type 2 DM - Controlled E11.9 Insulin: No COMPOUNDED PRESCRIPTION Nasal mask for CPAP and any other necessary supplies such as tubing #1 G47.33 MIKHAIL (obstructive sleep apnea) (primary encounter diagnosis) COMPOUNDED PRESCRIPTION Mask (per patient preference) optional chin strap (if indicated) , filters, tubing, humidifier and lifetime supplies. Dx. MIKHAIL G47.33 COMPOUNDED PRESCRIPTION cpap supplies, including mask. DX: MIKHAIL COMPOUNDED PRESCRIPTION Initiate CPAP @ 11 cm of water with humidification. EPR setting of 3. Mask (per patient preference) Mirage FX wide was used during study. Chin strap (if indicated) tubing, filters, humidifier and lifetime supplies. Dx. Central Sleep Apnea 327.2 No current facility-administered medications for this visit. FAMILY HISTORY Problem Relation Age of Onset Breast Cancer Mother other (smoker) Father Thyroid Sister uncertain, ? under No Known Problems Brother Hypertension Maternal Grandmother Stroke Maternal Grandmother Heart Attack Maternal Grandfather Alzheimer's Disease Paternal Grandmother Stroke Paternal Grandfather Diabetes Maternal Uncle Cancer Maternal Uncle unknown Social History Tobacco Use Smoking status: Never Smokeless tobacco: Never Vaping Use Vaping status: Never Used Substance Use Topics Alcohol use: No Drug use: No EXAM: BP 116/82 Pulse 80 Resp 16 Wt 92.5 kg (204 lb) SpO2 98% BMI 26.19 kg/m? PHYSICAL EXAM: General Appearance: Well appearing, alert, in no acute distress, well-hydrated, well nourished.. Skin: Skin color, texture, turgor normal, no suspicious rashes or lesions. Head: Normocephalic, no masses, lesions, tenderness or abnormalities. Eyes: Anicteric sclera. Pupils are equally round and reactive to light. Extraocular movements are intact. . Ears: External ears normal, canals clear. Normal TMs bilaterally. Oropharynx: Lips, mucosa, and tongue normal, teeth and gums normal, oropharynx normal. Neck: Supple, no adenopathy; thyroid symmetric, normal size, no bruits. Lungs: Lungs clear to auscultation. No wheezing, rhonchi, rales.. (more content not included)... [facility] 07-07-2024 History of Present illness Narrative This is a 53 year old male who presents today with: Patient presents with: 6 Month Exam HISTORY OF PRESENT ILLNESS: Tresa Muñoz is a 53 year old male. Patient presents with: 6 Month Exam DM: Reports overall feeling well. Medication side effects: Yes still with intermittent diarrhea. Home sugar checks: averages around 150. Hypoglycemic spells: No. Watching diet: Yes. Actually changed from milk to Glucerna because less spike in blood sugar. Unexpected weight loss: No. Polyuria, polydipsia: No. Vision Changes: No. Foot lesions or numbness or pain: anything from knees down. Feet are numb. Follows with clinical pharmacy. Sleep apnea Using cpap. Following with sleep medicine. PAST MEDICAL HISTORY: PAST MEDICAL HISTORY Diagnosis Date Diabetes mellitus type 2, controlled, without complications ([facility]) 01/02/2023 GERD (gastroesophageal reflux disease) Obstructive sleep apnea PAST SURGICAL HISTORY Procedure Laterality Date COLONOSCOPY 03/19/2023 repeat in 10 years EYE SURGERY HX FRACTURE SURGERY LAPAROSCOPIC APPENDECTOMY 01/14/2016 PAST SURGICAL HISTORY OF 03/30/1990 right hand -- ORIF of 4th and 5th metacarpals ALLERGIES Amoxil [Amoxicillin], Animal Dander, and Ketoconazole MEDICATIONS Current Outpatient Medications Medication Sig CPAP/BIPAP/OTHER biPAP ST 13/9 cmH2O with BUR [facility] b[facility] 300 mg capsule Take 1 capsule after arriving home from work or 1 hour before bedtime. dihydroberberine (BERBERINE ES-5 ORAL) Take 1 tablet by mouth once daily. Blood-Glucose Sensor (FREESTYLE WYATT 3 SENSOR) benjy Apply new sensor every fourteen (14) days to upper arm. flash glucose sensor (FREESTYLE WYATT 2 SENSOR) kit Apply new sensor every fourteen (14) days to upper arm. metFORMIN ER (GLUCOPHAGE XR) 500 mg 24 hr tablet Take 4 tablets by mouth once daily. lutein-zeaxanthin 25-5 mg cap Take 1 capsule by mouth once daily. turmeric 400 mg cap Take 1 capsule by mouth once daily. VITAMIN A ORAL Take by mouth. loratadine 10 mg cap Take by mouth. MEDICATION, NON-DATABASE [place] and [place] aspirin, enteric coated (ASPIRIN, ENTERIC COATED) 81 mg EC tablet Take 81 mg by mouth once daily. MAGNESIUM ORAL Take by mouth. cholecalciferol, vitamin D3, (VITAMIN D3 ORAL) Take by mouth. ZINC ORAL Take by mouth. vit C/E/Zn/coppr/lutein/zeaxan (PRESERVISION AREDS-2 ORAL) Take by mouth. CINNAMON ascorbic acid (VITAMIN C ORAL) Take by mouth. Lancets lancets Test blood sugar(s) 1 times daily. Dx: Type 2 DM - Controlled E11.9 Insulin: No blood sugar diagnostic (BLOOD GLUCOSE TEST) test strip Test blood sugar(s) 1 times daily. Dx: Type 2 DM - Controlled E11.9 Insulin: No COMPOUNDED PRESCRIPTION Nasal mask for CPAP and any other necessary supplies such as tubing #1 G47.33 MIKHAIL (obstructive sleep apnea) (primary encounter diagnosis) COMPOUNDED PRESCRIPTION Mask (per patient preference) optional chin strap (if indicated) , filters, tubing, humidifier and lifetime supplies. Dx. MIKHAIL G47.33 COMPOUNDED PRESCRIPTION cpap supplies, including mask. DX: MIKHAIL COMPOUNDED PRESCRIPTION Initiate CPAP @ 11 cm of water with humidification. EPR setting of 3. Mask (per patient preference) Mirage FX wide was used during study. Chin strap (if indicated) tubing, filters, humidifier and lifetime supplies. Dx. Central Sleep Apnea 327.2 No current facility-administered medications for this visit. FAMILY HISTORY Problem Relation Age of Onset Breast Cancer Mother other (smoker) Father Thyroid Sister uncertain, ? under No Known Problems Brother Hypertension Maternal Grandmother Stroke Maternal Grandmother Heart Attack Maternal Grandfather Alzheimer's Disease Paternal Grandmother Stroke Paternal Grandfather Diabetes Maternal Uncle Cancer Maternal Uncle unknown Social History Tobacco Use Smoking status: Never Smokeless tobacco: Never Vaping Use Vaping status: Never Used Substance Use Topics Alcohol use: No Drug use: No EXAM: BP 116/82 Pulse 80 Resp 16 Wt 92.5 kg (204 lb) SpO2 98% BMI 26.19 kg/m PHYSICAL EXAM: General Appearance: Well appearing, alert, in no acute distress, well-hydrated, well nourished.. Skin: Skin color, texture, turgor normal, no suspicious rashes or lesions. Head: Normocephalic, no masses, lesions, tenderness or abnormalities. Eyes: Anicteric sclera. Pupils are equally round and reactive to light. Extraocular movements are intact. . Ears: External ears normal, canals clear. Normal TMs bilaterally. Oropharynx: Lips, mucosa, and tongue normal, teeth and gums normal, oropharynx normal. Neck: Supple, no adenopathy; thyroid symmetric, normal size, no bruits. Lungs: Lungs clear to auscultation. No wheezing, rhonchi, rales.. Heart: RRR without murmur, gallop, or rubs. No ectopy. Abdomen: Abdomen soft, non-tender. Bowel sounds normal. No masses, organomegaly. Extremities: No deformities, edema, skin discoloration, clubbing or cyanosis. Good capillary refill. . Neurologic: Gait normal. Reflexes normal and symmetric. Sensation grossly intact.. ASSESSMENT/PLAN: 1. Controlled type 2 diabetes mellitus without complication, without long-term current use of insulin (HCC) - ICD9: 250.00, ICD10: E11.9 (primary diagnosis) - Controlled Return for labs. - HEMOGLOBIN A1C 2. Vitamin D deficiency - ICD9: 268.9, ICD10: E55.9 - VITAMIN D 25 HYDROXY 3. Hypertriglyceridemia - ICD9: 272.1, ICD10: E78.1 - Control undetermined, due for labs - Continue current medications - Counseled on healthy diet and regular exercise - LIPID PANEL BASIC - COMPREHENSIVE METABOLIC PANEL 4. Borderline abnormal thyroid function test - ICD9: 794.5, ICD10: R94.6 - THYROID STIMULATING HORMONE - T4 FREE/FREE THYROXINE 5. Screening for lipid disorders - ICD9: V77.91, ICD10: Z13.220 Due for lipid screening. Discussed treatment plan and patient voices understanding. Patient's questions answered appropriately. Medications and potential side effects were discussed and patient voices understanding. Return to the office as scheduled or as needed for worsening/no improvement. Bobbi Hart APRN.RUBIN documented in this encounter [facility] 05-27-2024 Telephone encounter Note RF sent PDMP website checked and validated. All prescriptions have been APPROPRIATELY filled. No suspicious activity was identified. 05/27/2024 by Jh Cowan APRN.RUBIN [facility] 05-27-2024 Miscellaneous Notes RF sent PDMP website checked and validated. All prescriptions have been APPROPRIATELY filled. No suspicious activity was identified. 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 Advised orders were sent to [facility]. Spouse stated patient needs refill of gabapentin, called into [facility] LPN May 27, 2024 4:32 PM Please apologize for the delay in our getting results. This study recommends biPAP ST at a pressure of 13/9 with a backup rate of 12 breaths per minute. He needs the backup rate in order to control his central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 vibration, temperature intact throughout. No evidence of neglect. Gait: Narrow based and stable with normal stride and arm swing. Normal tandem. Romberg normal. Assessment and Plan: ASSESSMENT/PLAN: 1. CSA (central sleep apnea) - ICD9: 780.57, ICD10: G47.31 (primary diagnosis) 2. MIKHAIL (obstructive sleep apnea) - ICD9: 327.23, ICD10: G47.33 Patient with history of CSA/MIKHAIL on prior sleep studies. Now reporting congestion at night, non restorative sleep and other symptoms above including those witnessed by - tossing and turning all night long if not using, and getting worse even with use. Review of PAP data download suggest not using PAP enough, but also concern for elevated AHI. At this point, feel patient needs an updated titration to determine appropriate PAP setting and furthermore, if central events are now worse, may need bilevel or bilevel with backup rate or even ASV. He is requesting titration be performed at [facility]. Order paced. Advised pt not to drive or operate heavy machinery if sleepy. Encouraged continued use of his PAP for now and explained need to clean (not using an ozone fish cleaner) and replace equipment regularly. 3. RLS (restless legs syndrome) - ICD9: 333.94, ICD10: G25.81 Possible that discomfort in legs in fact represents RLS which could contribute to sleep disruptions. He is not wanting lab work today due to cost, but will ask Dr. Noland to add Ferritin and Fe/TIBC lab to next annual labs for patient. In meantime will place on gabapentin 300mg QHS to see if any improvement in leg discomfort prior to going to bed and tossing and turning once in bed. SE and ADRs d/w pt. Pt agrees with plan. Edouard Ramires MD I spent a total of 45+ minutes on the date of the service which included preparing to see the patient, [id number] patient care, completing clinical documentation, obtaining and/or reviewing separately obtained history, performing a medically appropriate examination, counseling and educating the patient/family/caregiver, ordering medications, tests, or procedures, and communicating results to the patient/family/caregiver. PDMP website checked and validated. All prescriptions have been APPROPRIATELY filled. No suspicious activity was identified. 01/14/2024 by Edouard Ramires MD Medical Decision Making: Problems: Moderate: 1+ chronic illnesses with change and New problem with uncertain prognosis Data: Unique test result(s) reviewed: 3+ Unique test(s) ordered: 1 Risk: Moderate: Drug management Medical Decision Making Level: 4 - Moderate documented in this encounter [facility] 01-04-2024 Instructions Bobbi Hart APRN.RUBIN - 01/04/2024 1:39 PM EDT Get labs. Continue same medications. Recheck in 6 months. documented in this encounter [facility] 01-04-2024 History of Present illness Narrative This is a 53 year old male who presents today with: Patient presents with: Follow Up HISTORY OF PRESENT ILLNESS: Tresa Muñoz is a 53 year old male. Patient presents with: Follow Up DM: Reports overall feeling well. Medication side effects: Yes. Home sugar checks: has CGM. Hypoglycemic spells: No. Rarely below 125. Watching diet: Yes. Watches carbs. Unexpected weight loss: No. Polyuria, polydipsia: improving. Vision Changes: No. Foot lesions or numbness or pain: that's normal for several years -- midfoot down. Admits that he has been getting some muscle cramps. Elevated blood pressure without dx of HTN. BP controlled. Monitors bp at home: not lately. Denies side effects: n/a. . Chest pain: No. Dyspnea: No. Edema: No. Palpitations: No. Syncope: No. Headache: occasional Dizziness: No. MIKHAIL Not consistent with wearing it. PAST MEDICAL HISTORY: PAST MEDICAL HISTORY Diagnosis Date Diabetes mellitus type 2, controlled, without complications ([facility]) 01/02/2023 GERD (gastroesophageal reflux disease) Obstructive sleep apnea PAST SURGICAL HISTORY Procedure Laterality Date COLONOSCOPY 03/19/2023 repeat in 10 years EYE SURGERY HX FRACTURE SURGERY LAPAROSCOPIC APPENDECTOMY 01/14/2016 PAST SURGICAL HISTORY OF 03/30/1990 right hand -- ORIF of 4th and 5th metacarpals ALLERGIES Amoxil [Amoxicillin], Animal Dander, and Ketoconazole MEDICATIONS Current Outpatient Medications Medication Sig fluconazole (DIFLUCAN) 150 mg tablet I tab by mouth every 3 days until gone nystatin (MYCOSTATIN) cream Apply 1 application to affected area two times a day. metFORMIN ER (GLUCOPHAGE XR) 500 mg 24 hr tablet Take 4 tablets by mouth once daily. lutein-zeaxanthin 25-5 mg cap Take 1 capsule by mouth once daily. turmeric 400 mg cap Take 1 capsule by mouth once daily. VITAMIN A ORAL Take by mouth. loratadine 10 mg cap Take by mouth. MEDICATION, NON-DATABASE Billberry and [employer] Eric flash glucose sensor (FREESTYLE WYATT 2 SENSOR) kit Apply new sensor every fourteen (14) days to upper arm. Blood-Glucose Sensor (FREESTYLE WYATT 3 SENSOR) benjy Apply new sensor every fourteen (14) days to upper arm. aspirin, enteric coated (ASPIRIN, ENTERIC COATED) 81 mg EC tablet Take 81 mg by mouth once daily. MAGNESIUM ORAL Take by mouth. cholecalciferol, vitamin D3, (VITAMIN D3 ORAL) Take by mouth. ZINC ORAL Take by mouth. vit C/E/Zn/coppr/lutein/zeaxan (PRESERVISION AREDS-2 ORAL) Take by mouth. CINNAMON ascorbic acid (VITAMIN C ORAL) Take by mouth. Lancets lancets Test blood sugar(s) 1 times daily. Dx: Type 2 DM - Controlled E11.9 Insulin: No blood sugar diagnostic (BLOOD GLUCOSE TEST) test strip Test blood sugar(s) 1 times daily. Dx: Type 2 DM - Controlled E11.9 Insulin: No COMPOUNDED PRESCRIPTION Nasal mask for CPAP and any other necessary supplies such as tubing #1 G47.33 MIKHAIL (obstructive sleep apnea) (primary encounter diagnosis) COMPOUNDED PRESCRIPTION Mask (per patient preference) optional chin strap (if indicated) , filters, tubing, humidifier and lifetime supplies. Dx. MIKHAIL G47.33 COMPOUNDED PRESCRIPTION cpap supplies, including mask. DX: MIKHAIL COMPOUNDED PRESCRIPTION Initiate CPAP @ 11 cm of water with humidification. EPR setting of 3. Mask (per patient preference) Mirage FX wide was used during study. Chin strap (if indicated) tubing, filters, humidifier and lifetime supplies. Dx. Central Sleep Apnea 327.2 No current facility-administered medications for this visit. FAMILY HISTORY Problem Relation Age of Onset Breast Cancer Mother other (smoker) Father Thyroid Sister uncertain, ? under No Known Problems Brother Hypertension Maternal Grandmother Stroke Maternal Grandmother Heart Attack Maternal Grandfather Alzheimer's Disease Paternal Grandmother Stroke Paternal Grandfather Diabetes Maternal Uncle Cancer Maternal Uncle unknown Social History Tobacco Use Smoking status: Never Smokeless tobacco: Never Vaping Use Vaping Use: Never used Substance Use Topics Alcohol use: No Drug use: No EXAM: BP 122/78 Pulse 83 Resp 16 Wt 92.5 kg (204 lb) SpO2 98% BMI 26.19 kg/m PHYSICAL EXAM: General Appearance: Well appearing, alert, in no acute distress, well-hydrated, well nourished.. Skin: Skin color, texture, turgor normal, no suspicious rashes or lesions. Head: Normocephalic, no masses, lesions, tenderness or abnormalities. Eyes: Anicteric sclera. P Extraocular movements are intact. . Ears: TMs normal. Minimal wax in the right ear. Neck: Supple, no adenopathy; thyroid symmetric, normal size, no bruits. Lungs: Lungs clear to auscultation. No wheezing, rhonchi, rales.. Heart: RRR without murmur, gallop, or rubs. No ectopy. Extremities: No deformities, edema, skin discoloration, clubbing or cyanosis. Good capillary refill. . Neurologic: Gait normal. Feet:Shoes and socks removed, No deformities, ulcers, calluses, normal distal pulses, and sensitive to 10 gm monofilament ASSESSMENT/PLAN: 1. Controlled type 2 diabetes mellitus without complication, without long-term current use of insulin (HCC) - ICD9: 250.00, ICD10: E11.9 (primary diagnosis) - Controlled - Continue current medications - VITAMIN B12 2. Muscle cramps - ICD9: 729.82, ICD10: R25.2 Check labs. - BASIC METABOLIC PANEL - MAGNESIUM - VITAMIN B12 3. Weakness of lower extremity, unspecified laterality - ICD9: 729.89, ICD10: R29.898 - VITAMIN B12 Start strengthening exercises. 4. Vitamin D deficiency - ICD9: 268.9, ICD10: E55.9 - VITAMIN D 25 HYDROXY 5. Borderline abnormal thyroid function test - ICD9: 794.5, ICD10: R94.6 - THYROID STIMULATING HORMONE - T4 FREE/FREE THYROXINE 6. Elevated blood pressure reading without diagnosis of hypertension - ICD9: 796.2, ICD10: R03.0 Controlled. - Goal of BP <130/80 Discussed treatment plan and patient voices understanding. Patient's questions answered appropriately. Medications and potential side effects were discussed and patient voices understanding. Return to the office as scheduled or as needed for worsening/no improvement. Bobbi Hart APRN.MOVING PICTURE OPERATOR documented in this encounter [facility] 11-12-2023 Miscellaneous Notes Continue lamisil twice a day until clears. Add diflucan 150mg once a week x 4 weeks. The following approved medication requests have been transmitted electronically. Requested Prescriptions Signed Prescriptions Disp Refills terbinafine HCl (LAMISIL AT) 1 % cream 30 g 1 Sig: Apply to affected area two times a day for 14 days. fluconazole (DIFLUCAN) 150 mg tablet 4 tablet 0 Sig: Take 1 tablet by mouth one time a week. Luis Felipe Jordan PA-C See pt message and advise. Pt seen on 11/01/23. Justine Floyd MA documented in this encounter [facility] 11-01-2023 Instructions Luis Felipe Jordan PA-C - 11/01/2023 9:29 AM EDT Use medications as instructed. If not improving 10-14 days, let me know. It is possible it might be pityriasis rosea which is not a fungal infection and requires no treatment but will spontaneously resolved over a few months documented in this encounter [facility] 11-01-2023 History of Present illness Narrative 53 year old male with c/o multiple areas with circular red spots Left axilla, right shoulder, 3 spots on right and left abdomen, 2 pots right and left groin, spot on right buttock. No itching or painful. Was given clotrimazole twice which helps slightly but not enough to clear rash Hemoglobin A1C (%) Date Value 06/26/2023 6.9 12/07/2022 7.4 ) HISTORIES FAMILY HISTORY Problem Relation Age of Onset Breast Cancer Mother other (smoker) Father Thyroid Sister uncertain, ? under No Known Problems Brother Hypertension Maternal Grandmother Stroke Maternal Grandmother Heart Attack Maternal Grandfather Alzheimer's Disease Paternal Grandmother Stroke Paternal Grandfather Diabetes Maternal Uncle Cancer Maternal Uncle unknown PAST MEDICAL HISTORY Diagnosis Date Diabetes mellitus type 2, controlled, without complications ([facility]) 01/02/2023 GERD (gastroesophageal reflux disease) Obstructive sleep apnea PAST SURGICAL HISTORY Procedure Laterality Date COLONOSCOPY 03/19/2023 repeat in 10 years EYE SURGERY HX FRACTURE SURGERY LAPAROSCOPIC APPENDECTOMY 01/14/2016 PAST SURGICAL HISTORY OF 03/30/1990 right hand -- ORIF of 4th and 5th metacarpals Social History Tobacco Use Smoking status: Never Smokeless tobacco: Never Vaping Use Vaping Use: Never used Substance Use Topics Alcohol use: No Drug use: No ACTIVE PROBLEM LIST Special Screening for Malignant Neoplasms, Colon Cervical Radiculitis Tinnitus, Right Mikhail (Obstructive Sleep Apnea) Elevated Blood Pressure Reading Without Diagnosis of Hypertension Ganglion Cyst Obesity, Class I, Bmi 30-34.9 Vitamin D Deficiency Diabetes Mellitus Type 2, Controlled, Without Complications (Hcc) Current Outpatient Medications Medication Sig Dispense Refill nystatin (MYCOSTATIN) cream Apply 1 application to affected area two times a day. 45 g 0 metFORMIN ER (GLUCOPHAGE XR) 500 mg 24 hr tablet Take 4 tablets by mouth once daily. 360 tablet 3 lutein-zeaxanthin 25-5 mg cap Take 1 capsule by mouth once daily. turmeric 400 mg cap Take 1 capsule by mouth once daily. VITAMIN A ORAL Take by mouth. loratadine 10 mg cap Take by mouth. MEDICATION, NON-DATABASE Billberry and [employer] Eric flash glucose sensor (FREESTYLE WYATT 2 SENSOR) kit Apply new sensor every fourteen (14) days to upper arm. 6 Each 4 Blood-Glucose Sensor (FREESTYLE WYATT 3 SENSOR) benjy Apply new sensor every fourteen (14) days to upper arm. 6 Each 4 aspirin, enteric coated (ASPIRIN, ENTERIC COATED) 81 mg EC tablet Take 81 mg by mouth once daily. MAGNESIUM ORAL Take by mouth. cholecalciferol, vitamin D3, (VITAMIN D3 ORAL) Take by mouth. ZINC ORAL Take by mouth. vit C/E/Zn/coppr/lutein/zeaxan (PRESERVISION AREDS-2 ORAL) Take by mouth. CINNAMON ascorbic acid (VITAMIN C ORAL) Take by mouth. Lancets lancets Test blood sugar(s) 1 times daily. Dx: Type 2 DM - Controlled E11.9 Insulin: No 100 Each 11 blood sugar diagnostic (BLOOD GLUCOSE TEST) test strip Test blood sugar(s) 1 times daily. Dx: Type 2 DM - Controlled E11.9 Insulin: No 50 Strip 11 COMPOUNDED PRESCRIPTION Nasal mask for CPAP and any other necessary supplies such as tubing #1 G47.33 MIKHAIL (obstructive sleep apnea) (primary encounter diagnosis) 1 Each 0 COMPOUNDED PRESCRIPTION Mask (per patient preference) optional chin strap (if indicated) , filters, tubing, humidifier and lifetime supplies. Dx. MIKHAIL G47.33 1 Each 0 COMPOUNDED PRESCRIPTION cpap supplies, including mask. DX: MIKHAIL 1 Units 0 COMPOUNDED PRESCRIPTION Initiate CPAP @ 11 cm of water with humidification. EPR setting of 3. Mask (per patient preference) Mirage FX wide was used during study. Chin strap (if indicated) tubing, filters, humidifier and lifetime supplies. Dx. Central Sleep Apnea 327.2 1 Device 0 No current facility-administered medications for this visit. Covid-19 Vaccine() Never done Behavioral Health Screening Never done EXAM: BP 114/78 Pulse 86 Temp 36.1 C (97 F) Resp 16 Wt 95.6 kg (210 lb 12.8 oz) SpO2 97% BMI 27.07 kg/m Pleasant well appearing adult man in no acute distress. Alert and oriented all spheres. Normal affect and cognition. Speech normal. No deficits to learning or comprehension. Skin warm, dry, pink to lips and nailbeds. Normal turgor. 0.5-1.3 cm round flat red spots as above. Respirations regular and unlabored. Extrem: no clubbing or cyanosis. Edema: none. Extremities are warm and pink with prompt capillary refill. ASSESSMENT/PLAN: 1. Tinea corporis - ICD9: 110.5, ICD10: B35.4 Differential includes Pityriasis Rosea which is not fungal, educated on this diagnosis - Treat with below creams twice a day until rash resolves and then another week in addition to fluconazole. - TERBINAFINE HCL 1 % TOPICAL CREAM - TRIAMCINOLONE ACETONIDE 0.1 % TOPICAL CREAM - FLUCONAZOLE 150 MG TABLET Luis Felipe Jordan PA-C Some of this note may have been copied and pasted for the purpose of history context and comparison and has been adjusted for changes in prior data. Luis Felipe Jordan PA-C documented in this encounter [facility] 10-30-2023 Miscellaneous Notes Faxed and informed. Stephanie Keita MA printed Patient Ivonne calling CPAP mask fell apart last night. He does not have appt with Neurology until December. Willow is asking for new rx for mask and filters to be faxed to [facility] at [phone]. Pending order. If any questions can leave message on her phone, she works [employer]. Please advise documented in this encounter [facility] 10-22-2023 History of Present illness Narrative Images from the original note were not included. Primary Care Pharmacy Visit CC (Reason for Consult): Diabetes (E11.9) Controlled type 2 diabetes mellitus without complication, without long-term current use of insulin (HCC) (primary encounter diagnosis) Goal: A1c < 7% Last Collaborating Provider Visit: 07/02/23 Tresa Muñoz is a 53 year old male presenting for follow up visit telephone call. Patient consents to pharmacy collaborative practice agreement. Interim Events: 02/05: had recently started using CGM; no med changes fall: Pt was planning to resume T2DM mngt with PCP, but was advised to continue following with pharmacy for CGM report reviews 06/25: PharmD increased metformin 07/02: no med changes 07/16: no med changes, encouraged more protein with breakfast to prevent PPG spikes 08/13: many sugars over 200s with post-meal spikes; PharmD increased metformin to 2000 mg a day and switched to ER formulation. Encouraged more protein with fiber. 09/10: reported some flu-like sx and myalgias with metformin; encouraged switching to ER formulation HPI: One phone with patient and , Ivonne. has questions about metformin. States pt has difficulty sometimes swallowing pills, wondering if it would be better to switch to 1000mg tabs. She works in a pharmacy, plans to look at metformin ER 1000mg tabs to see if size would be better for patient. Did switch to ER metformin. Feels fine with medication, not seeing much difference with blood sugars. Tolerating fine. Denies nausea, headaches. No issues with flu-like sx or myalgias. Does feel like his tendons tighten up at night, not sure if RLS. Says stretching helps a lot if he remembers to do it before bed. Current DM Medications: Metformin ER 500mg tabs - 2000mg daily CGM Data Preventative Medications: On KATE/ARB: No On Statin: No DIET/EXERCISE/SOCIAL Hx: Working on cutting carbs, trying to increase protein intake Breakfast: bowl of oatmeal (flavored packs), glass milk with pills Snacks: beef sticks Lunch: today had chili (meat, beans, tomato juice) with some crackers (#6) MEDICATIONS: Pill bottles are not present. Adherence: denies missed doses. [facility] Rx coverage: Payor: ANTHEM / Plan: BLUE CARD PPO OOS / Product Type: PPO / Medications affordable? Yes Diabetes Supplies: Yes Organization system: ACTIVE PROBLEM LIST Special Screening for Malignant Neoplasms, Colon Cervical Radiculitis Tinnitus, Right Mikhail (Obstructive Sleep Apnea) Elevated Blood Pressure Reading Without Diagnosis of Hypertension Ganglion Cyst Obesity, Class I, Bmi 30-34.9 Vitamin D Deficiency Diabetes Mellitus Type 2, Controlled, Without Complications (Hcc) PAST MEDICAL HISTORY Diagnosis Date Diabetes mellitus type 2, controlled, without complications (HCC) 01/02/2023 GERD (gastroesophageal reflux disease) Obstructive sleep apnea Past medical history reviewed. ALLERGIES Allergen Reactions Amoxil [Amoxicillin] Rash Animal Dander Intolerance nasal congestion Ketoconazole Rash blisters Medication List Medication Directions Comments Action/Plan ascorbic acid (VITAMIN C ORAL) Take by mouth. aspirin, enteric coated (ASPIRIN, ENTERIC COATED) 81 mg EC tablet Take 81 mg by mouth once daily. blood sugar diagnostic (BLOOD GLUCOSE TEST) test strip Test blood sugar(s) 1 times daily. Dx: Type 2 DM - Controlled E11.9 Insulin: No Blood-Glucose Sensor (FREESTYLE WYATT 3 SENSOR) benjy Apply new sensor every fourteen (14) days to upper arm. cholecalciferol, vitamin D3, (VITAMIN D3 ORAL) Take by mouth. CINNAMON None Entered COMPOUNDED PRESCRIPTION Nasal mask for CPAP and any other necessary supplies such as tubing #1 G47.33 MIKHAIL (obstructive sleep apnea) (primary encounter diagnosis) COMPOUNDED PRESCRIPTION Initiate CPAP @ 11 cm of water with humidification. EPR setting of 3. Mask (per patient preference) Mirage FX wide was used during study. Chin strap (if indicated) tubing, filters, humidifier and lifetime supplies. Dx. Central Sleep Apnea 327.2 COMPOUNDED PRESCRIPTION cpap supplies, including mask. DX: MIKHAIL COMPOUNDED PRESCRIPTION Mask (per patient preference) optional chin strap (if indicated) , filters, tubing, humidifier and lifetime supplies. Dx. MIKHAIL G47.33 flash glucose sensor (FREESTYLE WYATT 2 SENSOR) kit Apply new sensor every fourteen (14) days to upper arm. Lancets lancets Test blood sugar(s) 1 times daily. Dx: Type 2 DM - Controlled E11.9 Insulin: No loratadine 10 mg cap Take by mouth. lutein-zeaxanthin 25-5 mg cap Take 1 capsule by mouth once daily. MAGNESIUM ORAL Take by mouth. MEDICATION, NON-DATABASE Billberry and Lion[employer] Eric metFORMIN ER (GLUCOPHAGE XR) 500 mg 24 hr tablet Take 4 tablets by mouth once daily. nystatin (MYCOSTATIN) cream Apply 1 application to affected area two times a day. turmeric 400 mg cap Take 1 capsule by mouth once daily. vit C/E/Zn/coppr/lutein/zeaxan (PRESERVISION AREDS-2 ORAL) Take by mouth. VITAMIN A ORAL Take by mouth. ZINC ORAL Take by mouth. Exam: There were no vitals taken for this visit. Last 3 Encounter BP Readings: Date: BP: 07/02/2023 124/82 03/19/2023 133/79 02/15/2023 128/90 Wt: 96.6 kg (213 lb) BMI: 27.35 kg/(m^2) LABS: Reviewed Lab Results Component Value Date HBA1C 6.9 06/26/2023 HBA1C 7.4 12/07/2022 CMP: Glucose 191 06/26/2023 BUN 19 06/26/2023 Creatinine 0.80 06/26/2023 Sodium 141 06/26/2023 Potassium 4.4 06/26/2023 Chloride 103 06/26/2023 CO2 27 06/26/2023 Protein, Total 7.5 06/26/2023 Albumin 4.5 06/26/2023 Calcium 9.7 06/26/2023 Alkaline Phosphatase 109 06/26/2023 Bilirubin, Total 0.5 06/26/2023 AST 29 06/26/2023 ALT 34 06/26/2023 No results found for: GFR CrCl cannot be calculated (Unknown ideal weight.). Lab Results Component Value Date CHOL 177 06/26/2023 CHOL 182 07/08/2014 LDL 94 06/26/2023 LDL 100 07/08/2014 HDL 29 06/26/2023 HDL 29 07/08/2014 TG 271 06/26/2023 TG 265 07/08/2014 The 10-year ASCVD risk score (Bertram ASTORGA, et al., 2019) is: 10% Values used to calculate the score: Age: 53 years Sex: Male Is Non- : No Diabetic: Yes Tobacco smoker: No Systolic Blood Pressure: 124 mmHg Is BP treated: No HDL Cholesterol: 29 mg/dL Total Cholesterol: 177 mg/dL Albumin/Creat Ratio (mg/g) Date Value 01/03/2023 <9 PHARMACOTHERAPY ASSESSMENT/PLAN: 1. Controlled type 2 diabetes mellitus without complication, without long-term current use of insulin (HCC) - ICD9: 250.00, ICD10: E11.9 A1c goal < 7%; controlled (last A1c 6.9%); SMBGs slightly elevated though TIR at goal; tolerating metformin ER well; no med changes, will f/up after next A1c; if A1c goes >7%, will plan to add another medication (will discuss SGLT2i or GLP1) Continue current regimen Encouraged continued dietary modifications (increase protein in diet), exercise Ran out of time today - need to discuss statin indication at f/up visit - HGB A1C - ALBUMIN/CREAT RATIO RND UR Follow-up Patient is scheduled to see PCP team on 01/03. Patient to have f/up with PharmD team on 01/15. Patient verbalized understanding of instructions. Noble Lawson, Elian, [facility] Primary Care Clinical Pharmacist The majority of the pharmacy visit (> 50%) was spent counseling and/or coordinating care for the patient. interaction: telephonic time was 30 minutes. documented in this encounter [facility] 02-12-2024 History of Present illness Narrative Images from the original note were not included. Primary Care Pharmacy Visit CC (Reason for Consult): Diabetes (E11.9) Controlled type 2 diabetes mellitus without complication, without long-term current use of insulin (HCC) (primary encounter diagnosis) Goal: A1c < 7% Last Collaborating Provider Visit: 07/02/23 Tresa Muñoz is a 53 year old male presenting for follow up visit telephone call. Patient consents to pharmacy collaborative practice agreement. Interim Events: 02/05: had recently started using CGM; no med changes fall: Pt was planning to resume T2DM mngt with PCP, but was advised to continue following with pharmacy for CGM report reviews 06/25: PharmD increased metformin 07/02: no med changes 07/16: no med changes, encouraged more protein with breakfast to prevent PPG spikes 08/13: many sugars over 200s with post-meal spikes; PharmD increased metformin to 2000 mg a day and switched to ER formulation. Encouraged more protein with fiber. HPI: Patient's Shaista was on the phone call. She is concerned about increase in flu-like symptoms, myalgias in his arms and legs, and constipation since increasing the metformin dose to 2,000 mg. He has not switched from IR to ER Metformin yet (has about 2 weeks supply left of IR). She reports that his diet has improved and he has been eating less ice cream. He has been eating cereal with milk for breakfast, leading to high post-breakfast BG. Current DM Medications: Metformin 1,000 mg BID (plan to switch to ER 2,000 mg daily once IR supply runs out in ~2 weeks) ROS: Patient denies symptoms of hypoglycemia (sweating, anxiety, palpitations, hunger, and tremor) Patient denies symptoms of hyperglycemia (polyuria, polydipsia, polyphagia) Patient reports potential medication adverse effects CGM: DIET/EXERCISE/SOCIAL Hx: He is eating less ice cream Eats a bowl of grain becerril cereal with milk for breakfast (tried eating eggs; did not like it) Preventative Medications: On KATE/ARB: No On Statin: No MEDICATIONS: Pill bottles are not present. Adherence: denies missed doses. Pharmacy: [facility] Rx coverage: Payor: ANTHEM / Plan: BLUE CARD PPO OOS / Product Type: PPO / Medications affordable? Yes Diabetes Supplies: Yes Organization system: Past medical history reviewed. ACTIVE PROBLEM LIST Special Screening for Malignant Neoplasms, Colon Cervical Radiculitis Tinnitus, Right Mikhail (Obstructive Sleep Apnea) Elevated Blood Pressure Reading Without Diagnosis of Hypertension Ganglion Cyst Obesity, Class I, Bmi 30-34.9 Vitamin D Deficiency Diabetes Mellitus Type 2, Controlled, Without Complications (Hcc) PAST MEDICAL HISTORY Diagnosis Date Diabetes mellitus type 2, controlled, without complications (HCC) 01/02/2023 GERD (gastroesophageal reflux disease) Obstructive sleep apnea ALLERGIES Allergen Reactions Amoxil [Amoxicillin] Rash Animal Dander Intolerance nasal congestion Ketoconazole Rash blisters Current Outpatient Medications Medication Sig Dispense Refill nystatin (MYCOSTATIN) cream Apply 1 application to affected area two times a day. 45 g 0 metFORMIN ER (GLUCOPHAGE XR) 500 mg 24 hr tablet Take 4 tablets by mouth once daily. 360 tablet 3 lutein-zeaxanthin 25-5 mg cap Take 1 capsule by mouth once daily. turmeric 400 mg cap Take 1 capsule by mouth once daily. VITAMIN A ORAL Take by mouth. loratadine 10 mg cap Take by mouth. MEDICATION, NON-DATABASE Billberry and Lion's Eric flash glucose sensor (FREESTYLE WYATT 2 SENSOR) kit Apply new sensor every fourteen (14) days to upper arm. 6 Each 4 Blood-Glucose Sensor (FREESTYLE WYATT 3 SENSOR) benjy Apply new sensor every fourteen (14) days to upper arm. 6 Each 4 aspirin, enteric coated (ASPIRIN, ENTERIC COATED) 81 mg EC tablet Take 81 mg by mouth once daily. MAGNESIUM ORAL Take by mouth. cholecalciferol, vitamin D3, (VITAMIN D3 ORAL) Take by mouth. ZINC ORAL Take by mouth. vit C/E/Zn/coppr/lutein/zeaxan (PRESERVISION AREDS-2 ORAL) Take by mouth. CINNAMON ascorbic acid (VITAMIN C ORAL) Take by mouth. Lancets lancets Test blood sugar(s) 1 times daily. Dx: Type 2 DM - Controlled E11.9 Insulin: No 100 Each 11 blood sugar diagnostic (BLOOD GLUCOSE TEST) test strip Test blood sugar(s) 1 times daily. Dx: Type 2 DM - Controlled E11.9 Insulin: No 50 Strip 11 COMPOUNDED PRESCRIPTION Nasal mask for CPAP and any other necessary supplies such as tubing #1 G47.33 MIKHAIL (obstructive sleep apnea) (primary encounter diagnosis) 1 Each 0 COMPOUNDED PRESCRIPTION Mask (per patient preference) optional chin strap (if indicated) , filters, tubing, humidifier and lifetime supplies. Dx. MIKHAIL G47.33 1 Each 0 COMPOUNDED PRESCRIPTION cpap supplies, including mask. DX: MIKHAIL 1 Units 0 COMPOUNDED PRESCRIPTION Initiate CPAP @ 11 cm of water with humidification. EPR setting of 3. Mask (per patient preference) Mirage FX wide was used during study. Chin strap (if indicated) tubing, filters, humidifier and lifetime supplies. Dx. Central Sleep Apnea 327.2 1 Device 0 No current facility-administered medications for this visit. Exam VITALS: There were no vitals taken for this visit. Last 3 Encounter BP Readings: Date: BP: 07/02/2023 124/82 03/19/2023 133/79 02/15/2023 128/90 Wt: 96.6 kg (213 lb) BMI: 27.35 kg/(m^2) LABS Lab Results Component Value Date HBA1C 6.9 06/26/2023 HBA1C 7.4 12/07/2022 CMP: Glucose 191 06/26/2023 BUN 19 06/26/2023 Creatinine 0.80 06/26/2023 Sodium 141 06/26/2023 Potassium 4.4 06/26/2023 Albumin 4.5 06/26/2023 Calcium 9.7 06/26/2023 AST 29 06/26/2023 ALT 34 06/26/2023 Lab Results Component Value Date CHOL 177 06/26/2023 CHOL 182 07/08/2014 LDL 94 06/26/2023 LDL 100 07/08/2014 HDL 29 06/26/2023 HDL 29 07/08/2014 TG 271 06/26/2023 TG 265 07/08/2014 The 10-year ASCVD risk score (Bertram ASTORGA, et al., 2019) is: 10% Values used to calculate the score: Age: 53 years Sex: Male Is Non- : No Diabetic: Yes Tobacco smoker: No Systolic Blood Pressure: 124 mmHg Is BP treated: No HDL Cholesterol: 29 mg/dL Total Cholesterol: 177 mg/dL Albumin/Creat Ratio (mg/g) Date Value 01/03/2023 <9 Estimated Creatinine Clearance: 127 mL/min (based on SCr of 0.8 mg/dL). PHARMACOTHERAPY ASSESSMENT/PLAN: 1. Controlled type 2 diabetes mellitus without complication, without long-term current use of insulin ([facility]) - ICD9: 250.00, ICD10: E11.9 A1c goal is <7%, patient is at goal with most recent A1C of 6.9% on 06/26/2023. BG improved with time in range of 80-180 mg/dL at 79% and an average BG of 159 mg/dL. Patient to finish supply of IR metformin and switch to ER once supply of IR runs out CONTINUE Metformin 1,000 mg BID (switch to ER 2,000 mg once daily once IR supply runs out) Educated patient's on better GI tolerability of Metformin ER versus the IR formulation Educated patient's on sugar storage reserves and why BG may be high even without eating Counseled patient's on the carbohydrate content of cereal, and gave recommendations for a higher protein breakfast Follow-up: Patient is scheduled to see PCP on 01/04/2024 Patient is scheduled with PharmD on 10/22/2023 Patient verbalized understanding of instructions. . Rachel Sanchez, Student Pharmacist Patient's case discussed with the student. Agree with findings and plan as outlined by the student. Note: reported some flu-like sx with metformin dose increase though sx are subsiding. Did have diarrhea, but now having more issues with constipation since is not as thirsty. Does report myalgias throughout body, which she says has been an issue for years, though seems to have gotten worse since increasing metformin. Plan is to still switch metformin IR to ER. If sx worsen she should call nurse line. PharmD f/up in ~6 weeks but pt advised to reach out sooner if sx are bothersome. Possible ADEs may improve with ER formulation. Noble Lawson PharmD, [facility] Primary Care Clinical Pharmacist documented in this encounter [facility] 09-06-2023 Miscellaneous Notes Patient has been identified by name and date of : Yes Patient phones for refill(s): Requested Prescriptions Pending Prescriptions Disp Refills nystatin (MYCOSTATIN) cream 45 g 0 Sig: Apply 1 application to affected area two times a day. Date of last office visit in primary care: 07/02/2023 Date of next office visit in primary care: 01/04/2024 Please advise. Thank you. Natalie Cuenca. documented in this encounter [facility] 07-02-2023 Instructions Bobbi Hart APRN.RUBIN - 07/02/2023 12:33 PM EST Continue the same medications. Follow-up w/ Noble, as scheduled. Get the additional labwork at your convenience. Schedule w/ sleep medicine. Recheck in 6 months. documented in this encounter [facility] 07-02-2023 History of Present illness Narrative This is a 52 year old male who presents today with: Patient presents with: Follow Up HISTORY OF PRESENT ILLNESS: Tresa Muñoz is a 52 year old male. Patient presents with: Follow Up DM: Reports overall feeling well. Taking the metformin twice daily. Recently increased the metformin last week. Medication side effects: No. Refers cramping in the legs. Less restless legs. Home sugar checks: CGM. Usually will spike after breakfast. Hypoglycemic spells: No. Watching diet: no Unexpected weight loss: No. Polyuria, polydipsia: urinating a lot, but not really thirsty. Vision Changes: slightly getting worse -- last eye visit was over the summer. Foot lesions or numbness or pain: Yes - in toes -- sees the shop clerk every [address] Boggs). Elevated blood pressure. Stable. No CP/SOB. GERD Occasional. Can go weeks without, and the will flare. Better if he avoids tomato sauces. MIKHAIL Problems with dryness. Hasn't been wearing as much. Would like to start Pectasol by [employer]. Feels like he has muscle weakness. Trouble keeping up with others. He reports his job is physical and has a lot of lifting. He likes to bike and did get an electric bike for exercise, as he had trouble with endurance/hills. Trouble with finding time for exercise. PAST MEDICAL HISTORY: PAST MEDICAL HISTORY Diagnosis Date Diabetes mellitus type 2, controlled, without complications ([facility]) 01/02/2023 GERD (gastroesophageal reflux disease) Obstructive sleep apnea PAST SURGICAL HISTORY Procedure Laterality Date COLONOSCOPY 03/19/2023 repeat in 10 years EYE SURGERY HX FRACTURE SURGERY LAPAROSCOPIC APPENDECTOMY 01/14/2016 PAST SURGICAL HISTORY OF 03/30/1990 right hand -- ORIF of 4th and 5th metacarpals ALLERGIES Amoxil [Amoxicillin], Animal Dander, and Ketoconazole MEDICATIONS Current Outpatient Medications Medication Sig metFORMIN (GLUCOPHAGE) 500 mg tablet Take 1 tablet by mouth two times a day with meals. loratadine 10 mg cap Take by mouth. MEDICATION, NON-DATABASE Billberry and Lion's Eric flash glucose sensor (FREESTYLE WYATT 2 SENSOR) kit Apply new sensor every fourteen (14) days to upper arm. Blood-Glucose Sensor (FREESTYLE WYATT 3 SENSOR) benjy Apply new sensor every fourteen (14) days to upper arm. aspirin, enteric coated (ASPIRIN, ENTERIC COATED) 81 mg EC tablet Take 81 mg by mouth once daily. MAGNESIUM ORAL Take by mouth. cholecalciferol, vitamin D3, (VITAMIN D3 ORAL) Take by mouth. ZINC ORAL Take by mouth. CINNAMON Lancets lancets Test blood sugar(s) 1 times daily. Dx: Type 2 DM - Controlled E11.9 Insulin: No blood sugar diagnostic (BLOOD GLUCOSE TEST) test strip Test blood sugar(s) 1 times daily. Dx: Type 2 DM - Controlled E11.9 Insulin: No COMPOUNDED PRESCRIPTION Nasal mask for CPAP and any other necessary supplies such as tubing #1 G47.33 MIKHAIL (obstructive sleep apnea) (primary encounter diagnosis) COMPOUNDED PRESCRIPTION Mask (per patient preference) optional chin strap (if indicated) , filters, tubing, humidifier and lifetime supplies. Dx. MIKHAIL G47.33 COMPOUNDED PRESCRIPTION cpap supplies, including mask. DX: MIKHAIL COMPOUNDED PRESCRIPTION Initiate CPAP @ 11 cm of water with humidification. EPR setting of 3. Mask (per patient preference) Mirage FX wide was used during study. Chin strap (if indicated) tubing, filters, humidifier and lifetime supplies. Dx. Central Sleep Apnea 327.2 lutein-zeaxanthin 25-5 mg cap Take 1 capsule by mouth once daily. turmeric 400 mg cap Take 1 capsule by mouth once daily. VITAMIN A ORAL Take by mouth. vit C/E/Zn/coppr/lutein/zeaxan (PRESERVISION AREDS-2 ORAL) Take by mouth. ascorbic acid (VITAMIN C ORAL) Take by mouth. No current facility-administered medications for this visit. FAMILY HISTORY Problem Relation Age of Onset Breast Cancer Mother other (smoker) Father Thyroid Sister uncertain, ? under No Known Problems Brother Hypertension Maternal Grandmother Stroke Maternal Grandmother Heart Attack Maternal Grandfather Alzheimer's Disease Paternal Grandmother Stroke Paternal Grandfather Diabetes Maternal Uncle Cancer Maternal Uncle unknown Social History Tobacco Use Smoking status: Never Smokeless tobacco: Never Vaping Use Vaping Use: Never used Substance Use Topics Alcohol use: No Drug use: No EXAM: BP 124/82 Pulse 88 Resp 16 Wt 96.6 kg (213 lb) SpO2 97% BMI 27.35 kg/m PHYSICAL EXAM: General Appearance: Well appearing, alert, in no acute distress, well-hydrated, well nourished.. Skin: Skin color, texture, turgor normal, no suspicious rashes or lesions. Head: Normocephalic, no masses, lesions, tenderness or abnormalities. Eyes: Anicteric sclera. Pupils are equally round and reactive to light. Extraocular movements are intact. Oropharynx: Lips, mucosa, and tongue normal, teeth and gums normal, oropharynx normal. Neck: Supple, no adenopathy; thyroid symmetric, normal size, no bruits. Lungs: Lungs clear to auscultation. No wheezing, rhonchi, rales.. Heart: RRR without murmur, gallop, or rubs. No ectopy. Abdomen: Normal abdominal exam, Abdomen soft, non-tender. Bowel sounds normal. No masses, organomegaly. Extremities: No deformities, edema, skin discoloration, clubbing or cyanosis. Good capillary refill. . Neurologic: Gait normal. ASSESSMENT/PLAN: 1. Controlled type 2 diabetes mellitus without complication, without long-term current use of insulin (HCC) - ICD9: 250.00, ICD10: E11.9 (primary diagnosis) - Controlled - Improving control - Continue current medications He does have a continuous glucose monitor. He has a follow-up scheduled with the clinical pharmacist later this month. 2. MIKHAIL (obstructive sleep apnea) - ICD9: 327.23, ICD10: G47.33 - CONSULT TO SLEEP MEDICINE - ADULT 3. Muscle weakness - ICD9: 728.87, ICD10: M62.81 Will get some additional labs. - CK CREATINE KINASE - URINALYSIS, WITH MICROSCOPIC - ROMÁN BLOOD - SED RATE WESTERGREN - C-REACTIVE PROTEIN (CRP) 4. Hypertriglyceridemia - ICD9: 272.1, ICD10: E78.1 Stable. - Counseled on healthy diet and regular exercise 5. Borderline abnormal thyroid function test - ICD9: 794.5, ICD10: R94.6 Stable. Discussed treatment plan and patient voices understanding. Patient's questions answered appropriately. Medications and potential side effects were discussed and patient voices understanding. Return to the office as scheduled or as needed for worsening/no improvement. Bobbi Hart APRN.RUBIN documented in this encounter [facility] 06-25-2023 Miscellaneous Notes Images from the original note were not included. Called and spoke with patient's , Ivonne. Reports pt is still using CGM and would like to review readings together. Thought that the readings on the CGM automatically alerted the office each time they are elevated. Discussed that we manually access the readings, typically done during pharmacy phone/office visits. Was planning to follow up with just PCP team, but since he has CGM was recommended to reconnect with pharmacy team for access to readings. She was worried that would lead to a visit charge so had not scheduled further pharmacy follow up. Discussed that pharmacy phone visits are not billed, they are agreeable to resuming pharmacy follow up. The following med changes discussed today: Feels readings have been running higher. Watching diet more closely with CGM monitor They will lose medicaid as secondary insurance but will still have commercial primary plan A/P: - Readings remain above goal, Increase metformin to 500 mg BID with meals. - Reminded to complete blood work before visit with MOVING PICTURE OPERATOR - Pharm follow up in 1 month Shane Rand RPh documented in this encounter [facility] 06-20-2023 Miscellaneous Notes Pt notified. Deisy Groves Orders are in for fasting labs. Bobbi Hart APRN.RUBIN Patient's notified. States that she just wanted to make sure blood sugars were being monitored and medication updated as needed. Patient has an upcoming appointment with Bobbi on 07/02/23. Would like any upcoming labs ordered before June since losing their caresource the end of this month. Patient needs contacted once orders placed. Please review and advise He is following diabetes and consulted pharmacy. He could set up a [employer] account but usually only one person can have access and Dr. Noland is not likely to monitor in this way, he would prefer pharmacy to do this. Shane Rand is very thorough and can spend more time tracking blood sugars and communicates with us for changes. What is the reason to want to switch? Thanks, Freddy Jordan PA-C Patient's Ivonne calling with the following questions for Dr. Noland: States patient's diabetes has been managed by Pharmacy in past, however asking if Dr. Noland can manage over pt's diabetes medications in future? Also asking if Dr. Noland is able to access pt's Wyatt CGM readings? FYI: LES: 01/02/23 Everardo NOV: 07/02 Bobbi Hart Please call spouse Ivonne with PCP response. [phone] Thank you. documented in this encounter [facility] 06-19-2023 Miscellaneous Notes Opened in error. Arielle Way RN documented in this encounter [facility] 02-05-2023 History of Present illness Narrative Primary Care Pharmacy Visit CC (Reason for Consult): DM Goal: DM<7% Last Collaborating Physician Visit: 01/02/23 Tresa Muñoz is a 52 year old male presenting for follow up visit by telephone. Patient consents to pharmacy collaborative practice agreement. . At last visit with pharmacy on 01/08/23 the following changes were made: CGM was initiated HPI: Has picked up CGM and using it to check BG readings Tolerating metformin with no ADES, taking one tablet once daily DIET/EXERCISE/SOCIAL Hx: (unchanged since 01/08) Breakfast: oatmeal or cereal or banana Lunch: beans and some kind protein Dinner: varies Beverages: milk and juices Exercise: no scheduled activity GLYCEMIC CONTROL: Glucometer present at visit: no Hypoglycemia: none SMBG's:Reports BG readings in the 150-180s range ROS: As above. Patient denies CP, SOB, NUNEZ, blurred vision, dizziness or lightheadedness Patient denies nausea, vomiting, diarrhea, abdominal pain Patient denies symptoms of hypoglycemia (sweating, anxiety, palpitations, hunger, and tremor) Patient denies symptoms of hyperglycemia (polyuria, polydipsia, polyphagia) Patient denies potential medication adverse effects Past medical, family and social history reviewed and updated. MEDICATIONS: Adherence: denies missed doses ALLERGIES Allergen Reactions Amoxil [Amoxicillin] Rash Animal Dander Intolerance nasal congestion Ketoconazole Rash blisters Current Outpatient Medications Medication Sig Dispense Refill flash glucose sensor (FREESTYLE WYATT 2 SENSOR) kit Apply new sensor every fourteen (14) days to upper arm. 6 Each 4 Blood-Glucose Sensor (FREESTYLE WYATT 3 SENSOR) benjy Apply new sensor every fourteen (14) days to upper arm. 6 Each 4 aspirin, enteric coated (ASPIRIN, ENTERIC COATED) 81 mg EC tablet Take 81 mg by mouth once daily. MAGNESIUM ORAL Take by mouth. cholecalciferol, vitamin D3, (VITAMIN D3 ORAL) Take by mouth. ZINC ORAL Take by mouth. vit C/E/Zn/coppr/lutein/zeaxan (PRESERVISION AREDS-2 ORAL) Take by mouth. CINNAMON VITAMIN B COMPLEX ORAL Take by mouth. ascorbic acid (VITAMIN C ORAL) Take by mouth. Lancets lancets Test blood sugar(s) 1 times daily. Dx: Type 2 DM - Controlled E11.9 Insulin: No 100 Each 11 blood sugar diagnostic (BLOOD GLUCOSE TEST) test strip Test blood sugar(s) 1 times daily. Dx: Type 2 DM - Controlled E11.9 Insulin: No 50 Strip 11 metFORMIN (GLUCOPHAGE) 500 mg tablet Take 1 tablet by mouth daily with breakfast. 90 tablet 3 nystatin (MYCOSTATIN) cream Apply 1 application to affected area twice daily. 45 g 0 COMPOUNDED PRESCRIPTION Nasal mask for CPAP and any other necessary supplies such as tubing #1 G47.33 MIKHAIL (obstructive sleep apnea) (primary encounter diagnosis) 1 Each 0 mometasone (ELOCON) 0.1 % cream Apply 1 application to affected area once daily. (Patient not taking: Reported on 01/02/2023) 45 g 0 COMPOUNDED PRESCRIPTION Mask (per patient preference) optional chin strap (if indicated) , filters, tubing, humidifier and lifetime supplies. Dx. MIKHAIL G47.33 1 Each 0 COMPOUNDED PRESCRIPTION cpap supplies, including mask. DX: MIKHAIL 1 Units 0 COMPOUNDED PRESCRIPTION Initiate CPAP @ 11 cm of water with humidification. EPR setting of 3. Mask (per patient preference) Mirage FX wide was used during study. Chin strap (if indicated) tubing, filters, humidifier and lifetime supplies. Dx. Central Sleep Apnea 327.2 1 Device 0 No current facility-administered medications for this visit. EXAM: Last 3 Encounter BP Readings: Date: BP: 01/02/2023 140/90 05/27/2019 122/84 05/21/2019 122/86 Wt: 93.4 kg (206 lb) BMI: 26.37 kg/(m^2) LABS: reviewed Lab Results Component Value Date HBA1C 7.4 12/07/2022 Glucose 204 12/07/2022 BUN 17 12/07/2022 Creatinine 0.83 12/07/2022 Sodium 141 12/07/2022 Potassium 4.7 12/07/2022 Chloride 104 12/07/2022 CO2 26 12/07/2022 Protein, Total 7.0 01/03/2023 Albumin 4.6 12/07/2022 Calcium 10.1 12/07/2022 Alkaline Phosphatase 114 12/07/2022 Bilirubin, Total 0.6 12/07/2022 AST 27 12/07/2022 ALT 31 12/07/2022 Lab Results Component Value Date CHOL 177 12/07/2022 CHOL 182 07/08/2014 LDL 99 12/07/2022 LDL 100 07/08/2014 HDL 30 12/07/2022 HDL 29 07/08/2014 TG 241 12/07/2022 TG 265 07/08/2014 Albumin/Creat Ratio (mg/g) Date Value 01/03/2023 <9 eGFR- (no units) Date Value 07/08/2014 >60 ASSESSMENT/PLAN: 1. Controlled type 2 diabetes mellitus without complication, without long-term current use of insulin (HCC) - ICD9: 250.00, ICD10: E11.9 - Uncontrolled. A1c goal <7%. A1c not at goal at last check. SMBGs mostly at goal on current regimen. Will assess CGM report once patient has uploaded to determine if patient would benefit from further metformin dose increase. - Continue current medications - Blood glucose monitoring on a continuous glucose monitoring schedule - [employer] invite sent to patient Follow up: will follow up once patient has uploaded CGM device to Wyatt Rand PharmD, BCACP Primary Care Clinical Pharmacist The majority of the pharmacy visit (> 50%) was spent counseling and/or coordinating care for the patient. interaction: telephonic time was 20 minutes. documented in this encounter [facility] 01-16-2023 Miscellaneous Notes CGM last prescribed at pharmacy phone visit on 01/08. Switching Wyatt 3 sensors to Wyatt 2 sensors due to back order. The following approved medication requests have been transmitted electronically. Requested Prescriptions Signed Prescriptions Disp Refills flash glucose sensor (FREESTYLE WYATT 2 SENSOR) kit 6 Each 4 Sig: Apply new sensor every fourteen (14) days to upper arm. Authorizing Provider: EDOUARD NOLAND Ordering User: SHANE RAND RPh Wyatt 3 Sensor is on kelp gatherer backorder, asking if Dr. Noland can change order, [facility] has the Wyatt 2. Asking if order can be changed and sent. Tracy Ricardo LPN documented in this encounter [facility] 01-08-2023 History of Present illness Narrative Primary Care Pharmacy Visit CC (Reason for Consult): DM Goal: DM,<7% Last Collaborating Physician Visit: 01/02/23 Tresa Muñoz is a 52 year old male presenting for initial visit: This initial consult was conducted by telephone with the patient where the consult agreement was explained. The patient may decline or cancel the agreement at any time. After consideration, the patient consented to the pharmacy consult agreement and agreed to allow medications be collaboratively managed by a pharmacist.. At last visit with PCP on 01/02/23 the following changes were made: referred to pharmacy and DM program for DM management HPI: Spoke with patient and Norma Recently diagnosed with DM Started metformin one week ago BG readings down in the 180s Was taking magnesium and occuvitamin OTC along with other supplements to help form memory Also taking iron, vitamin C and zinc, vitamin D Was taking these supplements to combat symptoms of hyperglycemia when he did not know he had DM, since starting metformin, vision improved, as well as focus and memory Would like to stop several of his self started OTC meds DIET/EXERCISE/SOCIAL Hx: Breakfast: oatmeal or cereal or banana Lunch: beans and some kind protein Dinner: varies Beverages: milk and juices Exercise: no scheduled activity GLYCEMIC CONTROL: Glucometer present at visit: No Hypoglycemia: denies SMBG's:No BG log ROS: As above. Patient denies CP, SOB, NUNEZ, blurred vision, dizziness or lightheadedness Patient denies nausea, vomiting, diarrhea, abdominal pain Patient denies symptoms of hypoglycemia (sweating, anxiety, palpitations, hunger, and tremor) Patient denies symptoms of hyperglycemia (polyuria, polydipsia, polyphagia) Patient denies potential medication adverse effects Past medical, family and social history reviewed and updated. MEDICATIONS: Adherence: denies missed doses ALLERGIES Allergen Reactions Amoxil [Amoxicillin] Rash Animal Dander Intolerance nasal congestion Ketoconazole Rash blisters Current Outpatient Medications Medication Sig Dispense Refill aspirin, enteric coated (ASPIRIN, ENTERIC COATED) 81 mg EC tablet Take 81 mg by mouth once daily. MAGNESIUM ORAL Take by mouth. cholecalciferol, vitamin D3, (VITAMIN D3 ORAL) Take by mouth. ZINC ORAL Take by mouth. vit C/E/Zn/coppr/lutein/zeaxan (PRESERVISION AREDS-2 ORAL) Take by mouth. CINNAMON VITAMIN B COMPLEX ORAL Take by mouth. ascorbic acid (VITAMIN C ORAL) Take by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 Problem Noted Date Diagnosed Date Resolved Date Acute appendicitis with localized peritonitis 01/18/20 16 01/02/2023 documented as of this encounter (statuses as of 10/22/2023) [facility] History of Past illness Narrative* Problem Noted Date Diagnosed Date Resolved Date Acute appendicitis with localized peritonitis 01/18/20 16 01/02/2023 documented as of this encounter (statuses as of 10/31/2023) [facility] of Past illness Narrative* Problem Noted Date Diagnosed Date Resolved Date Acute appendicitis with localized peritonitis 01/18/20 16 01/02/2023 documented as of this encounter (statuses as of 11/02/2023) [facility] Narrative* Problem Noted Date Diagnosed Date Resolved Date Acute appendicitis with localized peritonitis 01/18/20 16 01/02/2023 documented as of this encounter (statuses as of 11/13/2023) [facility] History of Past illness Narrative* Problem Noted Date Resolved Date Routine general medical exam ination at a health care facility 08/07/2008 03/18/2012 Overview: 08/07/08 10/19/2010 documented as of this encounter (statuses as of 12/06/2022) [facility] History of Past illness Narrative* Problem Noted Date Resolved Date Routine general medical exam ination at a health care facility 08/07/2008 03/18/2012 Overview: 08/07/08 10/19/2010 documented as of this encounter (statuses as of 12/13/2022) [facility] note* Diagnosis Hyperglycemia- Primary Other abnormal glucose Weight loss Loss of weight Screening for lipid disorders [facility] Diagnosis Well adult exam- Primary Routine general medical examination at a health care facility Need for vaccination Need for prophylactic vaccination and inoculation against unspecified single disease Vitamin D deficiency Unspecified vitamin D deficiency Controlled type 2 diabetes mellitus without complication, without long-term current use of insulin ([facility]) Screening for colon cancer Special screening for malignant neoplasms, colon Paresthesia Disturbance of skin sensation Chloe albicans infection Candidiasis of unspecified site [facility] Diagnosis Controlled type 2 diabetes mellitus without complication, without long-term current use of insulin ([facility])- Primary documented in this encounter [facility] note* Diagnosis Controlled type 2 diabetes mellitus without complication, without long-term current use of insulin ([facility])- Primary Medication management Encounter for long-term (current) use of other medications [facility] Diagnosis Controlled type 2 diabetes mellitus without complication, without long-term current use of insulin (HCC)- Primary [facility] Diagnosis Controlled type 2 diabetes mellitus without complication, without long-term current use of insulin (HCC)- Primary Hypertriglyceridemia Pure hyperglyceridemia Borderline abnormal thyroid function test Nonspecific abnormal results of thyroid function study documented in this encounter [facility] note* Diagnosis Controlled type 2 diabetes mellitus without complication, without long-term current use of insulin (HCC) [facility] Diagnosis Controlled type 2 diabetes mellitus without complication, without long-term current use of insulin (HCC)- Primary MIKHAIL (obstructive sleep apnea) Obstructive sleep apnea (adult) (pediatric) Muscle weakness Muscle weakness (generalized) Hypertriglyceridemia Pure hyperglyceridemia Borderline abnormal thyroid function test Nonspecific abnormal results of thyroid function study documented in this encounter [facility] note* Diagnosis Chloe albicans infection Candidiasis of unspecified site [facility] Diagnosis Controlled type 2 diabetes mellitus without complication, without long-term current use of insulin (HCC)- Primary [facility] Diagnosis Controlled type 2 diabetes mellitus without complication, without long-term current use of insulin (HCC)- Primary documented in this encounter [facility] note* Diagnosis MIKHAIL (obstructive sleep apnea)- Primary Obstructive sleep apnea (adult) (pediatric) [facility]* Diagnosis Tinea corporis- Primary Dermatophytosis of the body [facility]* Diagnosis Tinea corporis Dermatophytosis of the body [facility] Diagnosis Controlled type 2 diabetes mellitus without complication, without long-term current use of insulin (HCC)- Primary Muscle cramps Cramp of limb Weakness of lower extremity, unspecified laterality Vitamin D deficiency Unspecified vitamin D deficiency Borderline abnormal thyroid function test Nonspecific abnormal results of thyroid function study Elevated blood pressure reading without diagnosis of hypertension documented in this encounter [facility] note* Diagnosis CSA (central sleep apnea)- Primary Unspecified sleep apnea MIKHAIL (obstructive sleep apnea) Obstructive sleep apnea (adult) (pediatric) RLS (restless legs syndrome) Restless legs syndrome (RLS) Controlled type 2 diabetes mellitus without complication, without long-term current use of insulin (HCC)- Primary [facility]* Diagnosis Controlled type 2 diabetes mellitus without complication, without long-term current use of insulin (HCC)- Primary [facility]* Diagnosis RLS (restless legs syndrome) Restless legs syndrome (RLS) Controlled type 2 diabetes mellitus without complication, without long-term current use of insulin (HCC)- Primary [facility]* Diagnosis Central sleep apnea- Primary Unspecified sleep apnea MIKHAIL (obstructive sleep apnea) Obstructive sleep apnea (adult) (pediatric) Controlled type 2 diabetes mellitus without complication, without long-term current use of insulin (HCC)- Primary [facility]* Diagnosis Controlled type 2 diabetes mellitus without complication, without long-term current use of insulin (HCC)- Primary [facility] Diagnosis Controlled type 2 diabetes mellitus without complication, without long-term current use of insulin (HCC)- Primary Vitamin D deficiency Unspecified vitamin D deficiency Hypertriglyceridemia Pure hyperglyceridemia Borderline abnormal thyroid function test Nonspecific abnormal results of thyroid function study Screening for lipid disorders [facility] Diagnosis Elevated alkaline phosphatase level- Primary Other nonspecific abnormal serum enzyme levels [facility] Diagnosis Central sleep apnea- Primary Unspecified sleep apnea MIKHAIL (obstructive sleep apnea) Obstructive sleep apnea (adult) (pediatric) Uses bilevel positive airway pressure (BPAP) ventilation at home RLS (restless legs syndrome) Restless legs syndrome (RLS) PLMD (periodic limb movement disorder) Periodic limb movement disorder [facility]* Diagnosis Controlled type 2 diabetes mellitus without complication, without long-term current use of insulin (HCC)- Primary [facility] Diagnosis Central sleep apnea- Primary Unspecified sleep apnea MIKHAIL (obstructive sleep apnea) Obstructive sleep apnea (adult) (pediatric) RLS (restless legs syndrome) Restless legs syndrome (RLS) [facility]* Diagnosis Elevated blood pressure reading without diagnosis of hypertension- Primary Controlled type 2 diabetes mellitus without complication, without long-term current use of insulin (HCC) Paresthesia Disturbance of skin sensation Fatigue, unspecified type Encounter for screening examination for other mental health and behavioral disorders MIKHAIL (obstructive sleep apnea) Obstructive sleep apnea (adult) (pediatric) Vitamin D deficiency Unspecified vitamin D deficiency Erectile dysfunction, unspecified erectile dysfunction type Osteopenia of multiple sites Screening for depression Screening for prostate cancer Special screening for malignant neoplasm of prostate Disorder of bone and cartilage Disorder of bone and cartilage, unspecified [facility]* Diagnosis Hypercalcemia- Primary Elevated alkaline phosphatase level Other nonspecific abnormal serum enzyme levels [facility] Diagnosis Elevated liver enzymes- Primary Other nonspecific abnormal serum enzyme levels [facility]* Diagnosis Elevated liver enzymes Other nonspecific abnormal serum enzyme levels Controlled type 2 diabetes mellitus without complication, without long-term current use of insulin (HCC)- Primary [facility] noteNo assessment information availableWSt. [facility] Work Phone: Evaluation note* Diagnosis Controlled type 2 diabetes mellitus without complication, without long-term current use of insulin (HCC)- Primary documented in this encounter [facility] note* Diagnosis Bacterial pneumonia- Primary Bacterial pneumonia, unspecified documented in this encounter [facility] note* Diagnosis Hypercalcemia- Primary documented in this encounter [facility] note* Diagnosis Osteopenia of multiple sites documented in this encounter [facility] note* Diagnosis Renal insufficiency- Primary Unspecified disorder of kidney and ureter Hypercalcemia documented in this encounter [facility] note* Diagnosis Bacterial pneumonia Bacterial pneumonia, unspecified [facility] ([facility])No reason for referral information availableWSt. [facility] [facility] Work Phone: Reason for visit Narrative* Diagnostic Procedure Only (Routine) - Closed Specialty Diagnoses / Procedures Referred By Contac t Referred To Contact [facility] IMAGING Diagnoses Osteopenia of multiple sites Procedures DXA-AXIAL SKELETON DXA BONE DENSITY STUDY 1/> SITES AXIAL Edouard Moses MD [address] [place] [address] Phone: tel: fax: [place] [phone] Referral ID Status Reason Start Date Expiration Date V isits Requested Visits Authorized [id number] Closed Auto-Generate d Referral 01/12/2025 02/11/2026 1 1 [facility] Reason for Referral Specialty Diagnoses / Procedures Referred By Contac t Referred To Contact Diagnoses Controlled type 2 diabetes mellitus without complication, without long-term current use of insulin (HCC) Procedures CONSULT TO DIABETES EDUCATION DSME/MNT MEDICAL NUTRITION ASSMT&IVNTJ INDIV EACH 15 W[place] MEDICAL NUTRITION ASSMT&IVNTJ INDIV EACH 15 [place] MEDICAL NUTRITION ASSMT&IVNTJ INDIV EACH 15 [place] MEDICAL NUTRITION ASSMT&IVNTJ INDIV EACH 15 [place] Edouard Noland MD [address] [place] [address] [facility] [address] [place] [address] Referral ID Status Reason Start Date Expiration Date Visits Requested Visits Authorized [id number] Authorized PCP Requested Referral 01/02/2023 01/02/2024 1 1 Specialty Diagnoses / Procedures Referred By Contac t Referred To Contact General Surgery Diagnoses Screening for colon cancer Procedures CONSULT TO GENERAL SURGERY OFFICE/OUTPATIENT [facility] 60-74 MINUTES Edouard Noland MD [address] [place] [address] Referral ID Status Reason Start Date Expiration Date Visits Requested Visits Authorized [id number] Authorized PCP Requested Referral 01/02/2023 01/02/2024 1 1 Specialty Diagnoses / Procedures Referred By Contac t Referred To Contact Diagnoses MIKHAIL (obstructive sleep apnea) Procedures CONSULT TO SLEEP MEDICINE - ADULT OFFICE/OUTPATIENT [facility] 60-74 MINUTES Bobbi Hart APRN.CNP [address] [place] [address] Referral ID Status Reason Start Date Expiration Date Visits Requested Visits Authorized [id number] Authorized PCP Requested Referral 07/02/2023 07/01/2024 1 1 Specialty Diagnoses / Procedures Referred By Contac t Referred To Contact Diagnoses Controlled type 2 diabetes mellitus without complication, without long-term current use of insulin ([facility]) Edouard Noland MD [address] [place] [address] Referral ID Status Reason Start Date Expiration Date Visits Re quested Visits Authorized [id number] Closed 1 1 Chief Complaint and Reason for Visit Chief Complaint Admit Date CHEST PAIN January 21, 2025 10:1 9pm Family History Relationship Condition Age at Onset Recorded Date/T arianne Unknown Family History?No pertinent history Unkno wn January 14, 2016 4:44pm Advance Directives Advance Directive Response Recorded Date/ Time Do you have a Healthcare Power of Humidifier Attendant? No January 21, 2025 10:35pm Advance Directives No January 13 8:04pm Summary Purpose Additional Source Comments Source Comments (unrecognize d section and content) In the event this informatio n is protected by the Federal Confidentiality of Alcohol and Drug Abuse Patient Records regulations: The Federal rules restrict any use of the information to criminally investigate or prosecute any alcohol or drug abuse patient.[facility] the event this information is protected by the Federal Confidentiality of Alcohol and Drug Abuse Patient Records regulations: The Federal rules restrict any use of the information to criminally investigate or prosecute any alcohol or drug abuse patient.[facility] the event this information is protected by the Federal Confidentiality of Alcohol and Drug Abuse Patient Records regulations: The Federal rules restrict any use of the information to criminally investigate or prosecute any alcohol or drug abuse patient.[facility] the event this information is protected by the Federal Confidentiality of Alcohol and Drug Abuse Patient Records regulations: The Federal rules restrict any use of the information to criminally investigate or prosecute any alcohol or drug abuse patient.[facility] the event this information is protected by the Federal Confidentiality of Alcohol and Drug Abuse Patient Records regulations: The Federal rules restrict any use of the information to criminally investigate or prosecute any alcohol or drug abuse patient.[facility] the event this information is protected by the Federal Confidentiality of Alcohol and Drug Abuse Patient Records regulations: The Federal rules restrict any use of the information to criminally investigate or prosecute any alcohol or drug abuse patient.[facility]In the event this information is protected by the Federal Confidentiality of Alcohol and Drug Abuse Patient Records regulations: The Federal rules restrict any use of the information to criminally investigate or prosecute any alcohol or drug abuse patient.[facility] the event this information is protected by the Federal Confidentiality of Alcohol and Drug Abuse Patient Records regulations: The Federal rules restrict any use of the information to criminally investigate or prosecute any alcohol or drug abuse patient.[facility]In the event this information is protected by the Federal Confidentiality of Alcohol and Drug Abuse Patient Records regulations: The Federal rules restrict any use of the information to criminally investigate or prosecute any alcohol or drug abuse patient.[facility] the event this information is protected by the Federal Confidentiality of Alcohol and Drug Abuse Patient Records regulations: The Federal rules restrict any use of the information to criminally investigate or prosecute any alcohol or drug abuse patient.[facility] the event this information is protected by the Federal Confidentiality of Alcohol and Drug Abuse Patient Records regulations: The Federal rules restrict any use of the information to criminally investigate or prosecute any alcohol or drug abuse patient.[facility] the event this information is protected by the Federal Confidentiality of Alcohol and Drug Abuse Patient Records regulations: The Federal rules restrict any use of the information to criminally investigate or prosecute any alcohol or drug abuse patient.[facility]In the event this information is protected by the Federal Confidentiality of Alcohol and Drug Abuse Patient Records regulations: The Federal rules restrict any use of the information to criminally investigate or prosecute any alcohol or drug abuse patient.[facility]In the event this information is protected by the Federal Confidentiality of Alcohol and Drug Abuse Patient Records regulations: The Federal rules restrict any use of the information to criminally investigate or prosecute any alcohol or drug abuse patient.[facility] the event this information is protected by the Federal Confidentiality of Alcohol and Drug Abuse Patient Records regulations: The Federal rules restrict any use of the information to criminally investigate or prosecute any alcohol or drug abuse patient.[facility] the event this information is protected by the Federal Confidentiality of Alcohol and Drug Abuse Patient Records regulations: The Federal rules restrict any use of the information to criminally investigate or prosecute any alcohol or drug abuse patient.[facility]In the event this information is protected by the Federal Confidentiality of Alcohol and Drug Abuse Patient Records regulations: The Federal rules restrict any use of the information to criminally investigate or prosecute any alcohol or drug abuse patient.[facility]In the event this information is protected by the Federal Confidentiality of Alcohol and Drug Abuse Patient Records regulations: The Federal rules restrict any use of the information to criminally investigate or prosecute any alcohol or drug abuse patient.[facility]In the event this information is protected by the Federal Confidentiality of Alcohol and Drug Abuse Patient Records regulations: The Federal rules restrict any use of the information to criminally investigate or prosecute any alcohol or drug abuse patient.[facility]In the event this information is protected by the Federal Confidentiality of Alcohol and Drug Abuse Patient Records regulations: The Federal rules restrict any use of the information to criminally investigate or prosecute any alcohol or drug abuse patient.[facility] the event this information is protected by the Federal Confidentiality of Alcohol and Drug Abuse Patient Records regulations: The Federal rules restrict any use of the information to criminally investigate or prosecute any alcohol or drug abuse patient.[facility]In the event this information is protected by the Federal Confidentiality of Alcohol and Drug Abuse Patient Records regulations: The Federal rules restrict any use of the information to criminally investigate or prosecute any alcohol or drug abuse patient.[facility]In the event this information is protected by the Federal Confidentiality of Alcohol and Drug Abuse Patient Records regulations: The Federal rules restrict any use of the information to criminally investigate or prosecute any alcohol or drug abuse patient.[facility]In the event this information is protected by the Federal Confidentiality of Alcohol and Drug Abuse Patient Records regulations: The Federal rules restrict any use of the information to criminally investigate or prosecute any alcohol or drug abuse patient.[facility]In the event this information is protected by the Federal Confidentiality of Alcohol and Drug Abuse Patient Records regulations: The Federal rules restrict any use of the information to criminally investigate or prosecute any alcohol or drug abuse patient.[facility]In the event this information is protected by the Federal Confidentiality of Alcohol and Drug Abuse Patient Records regulations: The Federal rules restrict any use of the information to criminally investigate or prosecute any alcohol or drug abuse patient.[facility] the event this information is protected by the Federal Confidentiality of Alcohol and Drug Abuse Patient Records regulations: The Federal rules restrict any use of the information to criminally investigate or prosecute any alcohol or drug abuse patient.[facility]In the event this information is protected by the Federal Confidentiality of Alcohol and Drug Abuse Patient Records regulations: The Federal rules restrict any use of the information to criminally investigate or prosecute any alcohol or drug abuse patient.[facility]In the event this information is protected by the Federal Confidentiality of Alcohol and Drug Abuse Patient Records regulations: The Federal rules restrict any use of the information to criminally investigate or prosecute any alcohol or drug abuse patient.[facility]In the event this information is protected by the Federal Confidentiality of Alcohol and Drug Abuse Patient Records regulations: The Federal rules restrict any use of the information to criminally investigate or prosecute any alcohol or drug abuse patient.[facility] the event this information is protected by the Federal Confidentiality of Alcohol and Drug Abuse Patient Records regulations: The Federal rules restrict any use of the information to criminally investigate or prosecute any alcohol or drug abuse patient.[facility]In the event this information is protected by the Federal Confidentiality of Alcohol and Drug Abuse Patient Records regulations: The Federal rules restrict any use of the information to criminally investigate or prosecute any alcohol or drug abuse patient.[facility] HospitalIn the event this information is protected by the Federal Confidentiality of Alcohol and Drug Abuse Patient Records regulations: The Federal rules restrict any use of the information to criminally investigate or prosecute any alcohol or drug abuse patient.[facility] HospitalIn the event this information is protected by the Federal Confidentiality of Alcohol and Drug Abuse Patient Records regulations: The Federal rules restrict any use of the information to criminally investigate or prosecute any alcohol or drug abuse patient.[facility] HospitalIn the event this information is protected by the Federal Confidentiality of Alcohol and Drug Abuse Patient Records regulations: The Federal rules restrict any use of the information to criminally investigate or prosecute any alcohol or drug abuse patient.[facility] HospitalIn the event this information is protected by the Federal Confidentiality of Alcohol and Drug Abuse Patient Records regulations: The Federal rules restrict any use of the information to criminally investigate or prosecute any alcohol or drug abuse patient.[facility] HospitalIn the event this information is protected by the Federal Confidentiality of Alcohol and Drug Abuse Patient Records regulations: The Federal rules restrict any use of the information to criminally investigate or prosecute any alcohol or drug abuse patient.[facility] HospitalIn the event this information is protected by the Federal Confidentiality of Alcohol and Drug Abuse Patient Records regulations: The Federal rules restrict any use of the information to criminally investigate or prosecute any alcohol or drug abuse patient.[facility] HospitalIn the event this information is protected by the Federal Confidentiality of Alcohol and Drug Abuse Patient Records regulations: The Federal rules restrict any use of the information to criminally investigate or prosecute any alcohol or drug abuse patient.[facility] HospitalIn the event this information is protected by the Federal Confidentiality of Alcohol and Drug Abuse Patient Records regulations: The Federal rules restrict any use of the information to criminally investigate or prosecute any alcohol or drug abuse patient.[facility] HospitalIn the event this information is protected by the Federal Confidentiality of Alcohol and Drug Abuse Patient Records regulations: The Federal rules restrict any use of the information to criminally investigate or prosecute any alcohol or drug abuse patient.[facility] HospitalIn the event this information is protected by the Federal Confidentiality of Alcohol and Drug Abuse Patient Records regulations: The Federal rules restrict any use of the information to criminally investigate or prosecute any alcohol or drug abuse patient.[facility] HospitalIn the event this information is protected by the Federal Confidentiality of Alcohol and Drug Abuse Patient Records regulations: The Federal rules restrict any use of the information to criminally investigate or prosecute any alcohol or drug abuse patient.[facility] HospitalIn the event this information is protected by the Federal Confidentiality of Alcohol and Drug Abuse Patient Records regulations: The Federal rules restrict any use of the information to criminally investigate or prosecute any alcohol or drug abuse patient.[facility] HospitalIn the event this information is protected by the Federal Confidentiality of Alcohol and Drug Abuse Patient Records regulations: The Federal rules restrict any use of the information to criminally investigate or prosecute any alcohol or drug abuse patient.[facility] HospitalIn the event this information is protected by the Federal Confidentiality of Alcohol and Drug Abuse Patient Records regulations: The Federal rules restrict any use of the information to criminally investigate or prosecute any alcohol or drug abuse patient.[facility] HospitalIn the event this information is protected by the Federal Confidentiality of Alcohol and Drug Abuse Patient Records regulations: The Federal rules restrict any use of the information to criminally investigate or prosecute any alcohol or drug abuse patient.[facility] HospitalIn the event this information is protected by the Federal Confidentiality of Alcohol and Drug Abuse Patient Records regulations: The Federal rules restrict any use of the information to criminally investigate or prosecute any alcohol or drug abuse patient.[facility] HospitalIn the event this information is protected by the Federal Confidentiality of Alcohol and Drug Abuse Patient Records regulations: The Federal rules restrict any use of the information to criminally investigate or prosecute any alcohol or drug abuse patient.[facility] HospitalIn the event this information is protected by the Federal Confidentiality of Alcohol and Drug Abuse Patient Records regulations: The Federal rules restrict any use of the information to criminally investigate or prosecute any alcohol or drug abuse patient.[facility] HospitalIn the event this information is protected by the Federal Confidentiality of Alcohol and Drug Abuse Patient Records regulations: The Federal rules restrict any use of the information to criminally investigate or prosecute any alcohol or drug abuse patient.[facility] Reason for Visit (unrecogniz ed section and content) Reason Comments Lab Orders Reason Comments Results Reason Comments Physical Reason Comments Patient Question Orders Reason Comments Diabetes Reason Comments Patient Question Reason Comments Follow Up Reason Onset Date Comments Refill Request 09/06/2023 Reason Comments need rx for CPAP items Reason Comments Rash Over areas of body t hat are reoccurring Reason Comments Follow Up Reason Comments Orders Reason Comments New Patient New Patient MIKHAIL, c/o bilateral leg mvmts x10 yrs, mask irritation. Specialty Diagnoses / [facility] To Contact Diagnoses MIKHAIL (obstructive sleep apnea) Procedures CONSULT TO SLEEP MEDICINE - ADULT OFFICE/OUTPATIENT NEW HIGH MDM 60-74 MINUTES Bobbi Hart, IMMIGRATION PARALEGAL.MOVING PICTURE OPERATOR [address] [place] [address] Referral ID Status Reason Start Date Expiration Date V isits Requested Visits Authorized [id number] Closed PCP Requested Referral 07/02/2023 07/01/2024 1 1 Reason Comments Diabetes Reason Comments Patient Question/titration study Reason Comments Follow Up sleep results done W [facility] Reason Comments Fax last OV note and Sleep Study Order Reason Comments 6 Month Exam Reason Onset Date Comments Refill Request 09/20/2024 Reason Comments 6 Month Exam Diabetes has wyatt s ensor Sleep Apnea Using CPAP sees slee p med Reason Comments Insurance Authorization Reason Comments Results Abnormal labs. Reason Comments Results Reason Comments Radiology US Specialty Diagnoses / [facility] To Contact [facility] Diagnoses Elevated liver enzymes Procedures US ABD RIGHT UPPER QUADRANT US ABDOMINAL REAL TIME W/IMAGE LIMITED Edouard Noland MD [address] [place] [address] Phone: tel: fax: [place] [address] Referral ID Status Reason Start Date Expiration Date V isits Requested Visits Authorized [id number] Closed Auto-Generate d Referral 01/16/2025 02/15/2026 1 1 Reason Comments Patient Update Care Teams (unrecognized sec tion and content) Cork Compounder Relationship Specialty Start Date End Date Edouard Noland MD [address] [place], [place] [id number] PCP - General Family Medicine 03/18/12 Zoie Grijalva [address] [place] [address] 05/23/19 Cork Compounder Relationship Specialty Start Date End Date Edouard Noland MD [address] [place] [address] PCP - General Family Medicine 03/18/12 Zoie Grijalva [address] [place] [address] 05/23/19 Cork Compounder Relationship Specialty Start Date End Date Edouard Noland MD [address] [place] [address] PCP - General Family Medicine 03/18/12 Zoie Grijalva [address] [place] [address] 05/23/19 Cork Compounder Relationship Specialty Start Date End Date Edouard Noland MD [address] [place] [address] PCP - General Family Medicine 03/18/12 Zoie Grijalva [address] [place] [address] 05/23/19 Shane Rand, [facility] [address] [place] [address] Pharmacy 01/16/23 Cork Compounder Relationship Specialty Start Date End Date Edouard Noland MD [address] [place] [address] PCP - General Family Medicine 03/18/12 Zoie Grijalva [address] [place] [address] 05/23/19 Cork Compounder Relationship Specialty Start Date End Date Edouard Noland MD [address] [place] [address] PCP - General Family Medicine 03/18/12 [place] [address] 05/23/19 Shane Rand, [facility] [address] [place] [address] Pharmacy 01/16/23 Cork Compounder Relationship Specialty Start Date End Date Edouard Noland MD [address] [place] [address] PCP - General Family Medicine 03/18/12 Zoie Grijalva [address] [place] [address] 05/23/19 Shane Rand, [facility] [address] [place] [address] Pharmacy 01/16/23 Cork Compounder Relationship Specialty Start Date End Date Edouard Noland MD [address] [place] [address] PCP - General Family Medicine 03/18/12 Zoie Grijalva [address] [place] [address] 05/23/19 [facility] [address] [place] [address] Pharmacy 01/16/23 Cork Compounder Relationship Specialty Start Date End Date Edouard Noland MD [address] [place] [address] PCP - General Family Medicine 03/18/12 Zoie Grijalva [address] [place] [address] 05/23/19 [facility] [address] [place] [address] Pharmacy 01/16/23 Cork Compounder Relationship Specialty Start Date End Date Edouard Noland MD [address] [place] [address] PCP - General Family Medicine 03/18/12 oZie Grijalva [address] [facility] [place] [address] 05/23/19 [facility] [address] [place] [address] Pharmacy 01/16/23 Cork Compounder Relationship Specialty Start Date End Date Edouard Noland MD [address] [place] [address] PCP - General Family Medicine 03/18/12 Zoie Grijalva [address] [facility] [place] [address] 05/23/19 [facility] [address] [place] [address] Pharmacy 01/16/23 Cork Compounder Relationship Specialty Start Date End Date Edouard Noland MD [address] [place] [address] PCP - General Family Medicine 03/18/12 Zoie Grijalva [address] [facility] [place] [address] 05/23/19 LuluNoble ford, [facility] [address] [place] [phone] Pharmacist Pharmacy 07/16/23 Cork Compounder Relationship Specialty Start Date End Date Edouard Noland MD [address] [facility] [place] [address] PCP - General Family Medicine 03/18/12 Zoie Grijalva [address] [facility] [place] [address] 05/23/19 [place] [address] [place] [address] Pharmacist Pharmacy 07/16/23 Cork Compounder Relationship Specialty Start Date End Date Edouard Noland MD [address] [place] [address] PCP - General Family Medicine 03/18/12 Zoie Grijalva [address] [place] [address] 05/23/19 [place] [address] [place] [address] Pharmacist Pharmacy 07/16/23 Cork Compounder Relationship Specialty Start Date End Date Edouard Noland MD [address] [place] [address] PCP - General Family Medicine 03/18/12 Zoie Grijalva [address] [facility] [place] [address] 05/23/19 [place] [address] [place] [address] Pharmacist Pharmacy 07/16/23 Cork Compounder Relationship Specialty Start Date End Date Edouard Noland MD [address] [place] [address] PCP - General Family Medicine 03/18/12 Zoie Grijalva [address] [facility] [place] [address] 05/23/19 [place] [address] [place] [address] Pharmacist Pharmacy 07/16/23 Cork Compounder Relationship Specialty Start Date End Date Edouard Noland MD [address] [place] [address] PCP - General Family Medicine 03/18/12 Zoie Grijalva [address] [place] [address] 05/23/19 [place] [address] [place] [address] Pharmacist Pharmacy 07/16/23 Cork Compounder Relationship Specialty Start Date End Date Edouard Noland MD [address] [place] [address] PCP - General Family Medicine 03/18/12 Zoie Grijalva [address] [place] [address] 05/23/19 [place] [address] [place] [address] Pharmacist Pharmacy 07/16/23 Cork Compounder Relationship Specialty Start Date End Date Edouard Noland MD [address] [place] [address] PCP - General Family Medicine 03/18/12 Zoie Grijalva [address] [place] [address] 05/23/19 [place] [address] [place] [address] Pharmacist Pharmacy 07/16/23 Cork Compounder Relationship Specialty Start Date End Date Edouard Noland MD [address] [place] [address] PCP - General Family Medicine 03/18/12 Zoie Grijalva [address] [place] [address] 05/23/19 Noble Lawson, [facility] [address] [place] [address] Pharmacist Pharmacy 07/16/23 Cork Compounder Relationship Specialty Start Date End Date Edouard Noland MD [address] [place] [address] PCP - General Family Medicine 03/18/12 Zoie Grijalva [address] [place] [address] 05/23/19 LuluNoble ford, [facility] [address] [place] [phone] Pharmacist Pharmacy 07/16/23 Bobbi Hart, HARRY.MOVING PICTURE OPERATOR [address] [place] [address] [facility] 07/07/24 Adrienne Castro IMMIGRATION PARALEGAL.MOVING PICTURE OPERATOR [address] [place] [address] [employer] [facility] 07/07/24 Cork Compounder Relationship Specialty Start Date End Date Edouard Noland MD [address] [place] [address] PCP - General Family Medicine 03/18/12 Zoie Grijalva [address] [place] [address] 05/23/19 Noble Lawson, [facility] [address] [place] [address] Pharmacist Pharmacy 07/16/23 Bobbi Hart, IMMIGRATION PARALEGAL.MOVING PICTURE OPERATOR [address] [place] [address] [facility] 07/07/24 Adrienne Castro APRN.MOVING PICTURE OPERATOR [address] [place] [address] [facility] Cork Compounder Relationship Specialty Start Date End Date Edouard Noland MD [address] [place] [address] PCP - General Family Medicine 03/18/12 Zoie Grijalva [address] [place] [address] 05/23/19 [facility] [address] [place] [phone] Pharmacist Pharmacy 07/16/23 Bobbi Hart APRN.MOVING PICTURE OPERATOR [address] [place] [address] [facility] 07/07/24 Adrienne Castro IMMIGRATION PARALEGAL.MOVING PICTURE OPERATOR [address] [place] [address] [facility] 07/07/24 Cork Compounder Relationship Specialty Start Date End Date Edouard Noland MD [address] [place] [address] PCP - General Family Medicine 03/18/12 Zoie Grijalva [address] [place] [address] 05/23/19 [facility] [address] [place] [phone] Pharmacist Pharmacy 07/16/23 Bobbi Hart APRN.MOVING PICTURE OPERATOR [address] [place] [address] [employer] [facility] 07/07/24 Adrienne Castro IMMIGRATION PARALEGAL.MOVING PICTURE OPERATOR [address] [place] [address] [facility] 07/07/24 Cork Compounder Relationship Specialty Start Date End Date Edouard Noland MD [address] [place] [address] PCP - General Family Medicine 03/18/12 Zoie Grijalva [address] [place] [address] 05/23/[address] [phone] Pharmacist Pharmacy 07/16/23 Bobbi Hart APRN.MOVING PICTURE OPERATOR [address] [place] [address] [facility] 07/07/24 Adrienne Castro IMMIGRATION PARALEGAL.MOVING PICTURE OPERATOR [address] [place] [address] [facility] 07/07/24 Cork Compounder Relationship Specialty Start Date End Date Edouard Noland MD [address] [place] [address] PCP - General Family Medicine 03/18/12 Zoie Grijalva [address] [place] [address] 05/23/[address] [phone] Pharmacist Pharmacy 07/16/23 Bobbi Hart APRN.MOVING PICTURE OPERATOR [address] [place], [place] [address] [employer] [facility] 07/07/24 Adrienne Castro APRN.MOVING PICTURE OPERATOR [address] [place] [address] [employer] [facility] 07/07/24 Cork Compounder Relationship Specialty Start Date End Date Edouard Noland MD [address] [place] [address] PCP - General Family Medicine 03/18/12 Zoie Grijalva [address] [place] [address] 05/23/[address] [phone] Pharmacist Pharmacy 07/16/23 Bobbi Hart APRN.MOVING PICTURE OPERATOR [address] [place] [address] [employer] [facility] 07/07/24 Adrienne Castro IMMIGRATION PARALEGAL.MOVING PICTURE OPERATOR [address] [place] [address] [facility] 07/07/24 Cork Compounder Relationship Specialty Start Date End Date Edouard Noland MD [address] [place] [address] PCP - General Family Medicine 03/18/12 Zoie Grijalva [address] [place] [address] 05/23/[address] [phone] Pharmacist Pharmacy 07/16/23 Bobbi Hart APRN.MOVING PICTURE OPERATOR [address] [place] [address] [employer] [facility] 07/07/24 Adrienne Castro APRN.MOVING PICTURE OPERATOR [address] [place] [address] [employer] [facility] 07/07/24 Cork Compounder Relationship Specialty Start Date End Date Edouard Noland MD [address] [place] [address] PCP - General Family Medicine 03/18/12 Zoie Grijalva [address] [place] [address] 05/23/[address] [phone] Pharmacist Pharmacy 07/16/23 Bobbi Hart APRN.MOVING PICTURE OPERATOR [address] [place] [address] [employer] [facility] 07/07/24 Adrienne Castro APRN.MOVING PICTURE OPERATOR [address] [place] [address] [facility] 07/07/24 Cork Compounder Relationship Specialty Start Date End Date Edouard Noland MD [address] [place] [address] PCP - General Family Medicine 03/18/12 Zoie Grijalva [address] [place] [address] 05/23/[address] [address] Pharmacist Pharmacy 07/16/23 Bobbi Hart APRN.MOVING PICTURE OPERATOR [address] [place] [address] [employer] 07/07/24 Adrienne Castro APRN.MOVING PICTURE OPERATOR [address] [place] [address] [employer] [facility] 07/07/24 Cork Compounder Relationship Specialty Start Date End Date Edouard Noland MD [address] [place] [address] PCP - General Family Medicine 03/18/12 Zoie Grijalva [address] [place] [address] 05/23/[address] [place] [address] [phone] Pharmacist Pharmacy 07/16/23 Bobbi Hart APRN.MOVING PICTURE OPERATOR [address] [place] [address] [facility] 07/07/24 Adrienne Castro APRN.MOVING PICTURE OPERATOR [address] [place] [address] [facility] 07/07/24 Cork Compounder Relationship Specialty Start Date End Date Edouard Noland MD [address] [place] [address] PCP - General Family Medicine 03/18/12 Zoie Grijalva [address] [facility] [place] [address] 05/23/19 [place] [address] [phone] Pharmacist Pharmacy 07/16/23 Bobbi Hart APRN.MOVING PICTURE OPERATOR [address] [facility] [place] [address] [facility] 07/07/24 Adrienne Castro IMMIGRATION PARALEGAL.MOVING PICTURE OPERATOR [address] [place] [address] [facility] 07/07/24 Team Status: Active Member Role Status Dates Dr. Edouard Noland MD Primary Care Provider Active Team Status: Inactive Member Role Status Dates Dr. Edouard Noland MD Primary Care Provider Active Start: January 21, 2025 End: January 22, 2025 Dr. Elliot Caceres DO Emergency Provider Active Start: January 21, 2025 End: January 22, 2025 Cork Compounder Relationship Specialty Start Date End Date Edouard Noland MD [address] [place] [address] PCP - General Family Medicine 03/18/12 Zoie Grijalva [address] [facility] [place] [address] 05/23/19 LuluNoble ford, [facility] [address] [place] [phone] Pharmacist Pharmacy 07/16/23 Bobbi Hart, IMMIGRATION PARALEGAL.MOVING PICTURE OPERATOR [address] [place] [address] [facility] 07/07/24 Adrienne Castro IMMIGRATION PARALEGAL.MOVING PICTURE OPERATOR [address] [place] [address] [facility] 07/07/24 Cork Compounder Relationship Specialty Start Date End Date Edouard Noland MD [address] [place], [place] [address] PCP - General Family Medicine 03/18/12 Zoie Grijalva [address] [place] [address] 05/23/[address] [phone] Pharmacist Pharmacy 07/16/23 Bobbi Hart APRN.MOVING PICTURE OPERATOR [address] [place] [address] [employer] [facility] 07/07/24 Adrienne Castro APRN.MOVING PICTURE OPERATOR [address] [place] [address] [employer] [facility] 07/07/24 Cork Compounder Relationship Specialty Start Date End Date Edouard Noland MD [address] [place] [address] PCP - General Family Medicine 03/18/12 Zoie Grijalva [address] [place] [address] 05/23/[address] [phone] Pharmacist Pharmacy 07/16/23 Bobbi Hart APRN.MOVING PICTURE OPERATOR [address] [place] [address] [employer] [facility] 07/07/24 Adrienne Castro APRN.MOVING PICTURE OPERATOR [address] [place] [address] [employer] [facility] 07/07/24 Cork Compounder Relationship Specialty Start Date End Date Edouard Noland MD [address] [place] [address] PCP - General Family Medicine 03/18/12 Zoie Grijalva [address] [place] [address] 05/23/[address] [place] [address] [phone] Pharmacist Pharmacy 07/16/23 Bobbi Hart APRN.MOVING PICTURE OPERATOR [address] [place] [address] [employer] [facility] 07/07/24 Adrienne Castro APRN.MOVING PICTURE OPERATOR [address] [place] [address] [facility] 07/07/24 Cork Compounder Relationship Specialty Start Date End Date Edouard Noland MD [address] [place] [address] PCP - General Family Medicine 03/18/12 Zoie Grijalva [address] [place] [address] 05/23/[address] [phone] Pharmacist Pharmacy 07/16/23 Bobbi Hart APRN.MOVING PICTURE OPERATOR [address] [place] [address] [facility] 07/07/24 Adrienne Castro APRN.MOVING PICTURE OPERATOR [address] [place] [address] [facility] 07/07/24 Goals (unrecognized section and content) Goals may be documented in a n alternate section (unrecognized sect ion and content) No Status Records FoundNo Status Records FoundNo Status Records Found INFORMATION SOURCE (unrecogn ized section and content) DATE CREATED AUTHOR 01/28/2025 [facility] DATE CREATED AUTHOR AUTHOR'S ERLINDA ATSKYE 02/07/2025 [facility] DATE CREATED AUTHOR AUTHOR'S ORGANSARAH ATION 02/23/2025 [facility] FOR RECORDS PERTAINING TO PATIENTS WHO ARE OR HAVE BEEN ENROLLED IN A CHEMICAL DEPENDENCY/SUBSTANCEABUSE PROGRAM, SOME INFORMATION MAY BE OMITTED. This clinical summary was aggregated from multiple sources. Caution should be exercised in using it in the provision of clinical care. This summary normalizes information from multiple sources, and as a consequence, information in this document may materially change the coding, format and clinical context of patient data. In addition, data may be omitted in some cases. CLINICAL DECISIONS SHOULD BE BASED ON THE PRIMARY CLINICAL RECORDS. [facility]. provides no warranty or guarantee of the accuracy or completeness of information in this document.
--- NOTE | 2025-02-25 22:16 | EKG12_ITS ---
Test Reason : Blood Pressure : */* mmHG Vent. Rate : 91 BPM Atrial Rate : 91 BPM P-R Int : 178 ms QRS Dur : 82 ms QT Int : 348 ms P-R-T Axes : 41 33 57 degrees QTcB Int : 428 ms Normal sinus rhythm Confirmed by MATEO AMIN, BRAYDEN ([id number]), whitesmith KLEVER CUNNINGHAM ([id number]) on 02/26/2025 8:42:39 AM Referred By: Confirmed By: BRAYDEN GALINDO MD
--- NOTE | 2025-02-25 22:27 | EX.ED.DYSGE1 ---
HPI History of Present Illness Chief Complaint: General Illness Informant: patient and spouse/S.O. Narrative Narrative: Patient is a 54-year-old male with history of diabetes, neuropathy and recent pneumonia presenting with generalized malaise and abnormal chest x-ray as well as high outpatient calcium level. Patient had a repeat x-ray performed by his primary care doctor (follow-up for pneumonia which he states he has not felt much better despite a course of antibiotics) which showed numerous pulmonary nodules and a right perihilar lung mass. Patient also recently had lab work that showed a calcium of 12.4 which did improved 11.3 on recheck. Patient states he was seen and evaluated for fatigue and cough about a month ago. Issue with a course of doxycycline. He states he had some GI issues with the doxycycline and felt better for about a week and his cough is a little bit but then has been feeling worse again. Patient has any chest pain. Notes he gets some mild tightness with mild shortness of breath but nothing significant. Denies any dyspnea on exertion. States he is feeling very exhausted. Denies any night sweats. Does have some intermittent nausea as well as vomiting and diarrhea but no vomiting or diarrhea today. States over the past year he is lost 100 pounds in the past month he is lost about 5 pounds. Denies any swelling of his legs. Denies any history of DVT or PE. Denies any fevers. States he just has been feeling well. Chest x-ray read reviewed on [facility] Shows perihilar dominant and numerable nodules or nodule opacities in the bilateral lungs. A 4.5 cm mass lesion in the right middle lung. PTH related peptide on 02/10 was 3.2 (high). BMP showed a creatinine of 1.37 and calcium 11.3 on the same date with glucose of 136. Remainder of labs normal. Bone density scan normal. [facility] Medical History COVID Diabetes GERD (gastroesophageal reflux disease) Home Medications ?Medication ?Instructions ?Recorded ?Last Taken ?Type aspirin 81 mg tablet,delayed 81 mg PO DAILY 01/21/25 Unknown History release (Adult Aspirin Regimen) dulaglutide 0.75 mg/0.5 mL 0.75 mg subcut [place] 01/21/25 Unknown History subcutaneous pen injector (Trulicity) gabapentin 300 mg capsule 300 mg PO DAILY 01/21/25 Unknown History loratadine 10 mg tablet 10 mg PO DAILY 01/21/25 Unknown History (Allerclear) metformin 500 mg tablet,extended 1,000 mg PO BID 01/21/25 Unknown History release 24 hr Allergy/AdvReac Type Severity Reaction Status Date / Time Penicillins (PCN) Allergy Rash Verified 02/25/25 20:45 Social History Smoking Status: Never smoker ROS ROS ED Constitutional Constitutional ED: Reports weight loss and other Details: Generalized malaise. No appetite ; Denies chills, fever(s) or sweats ENT ENT ED: Denies sore throat Cardiovascular Cardiovascular: Denies chest pain or palpitations Respiratory/Chest Respiratory/Chest: Reports cough and dyspnea; Denies dyspnea on exertion Gastrointestinal Gastrointestinal: Reports diarrhea, nausea and vomiting; Denies abdominal pain Genitourinary Genitourinary ED: Reports urinary frequency; Denies dysuria Musculoskeletal Musculoskeletal: Denies arthralgias or myalgias Integumentary Denies rash Neurologic Neurologic: Reports paresthesias and weakness; Denies headache(s) Hematologic/Lymphatic Hematologic/Lymphatic: Denies easy bleeding or easy bruising EXAM Physical Exam Const Vital Signs: 02/25/25 20:45 02/25/25 20:48 02/25/25 22:32 Temperature 99.1 F 99.1 F Temperature Source Oral Oral Pulse Rate 105 H 105 H Respiratory Rate 18 18 Respiratory Pattern Normal Blood Pressure 124/92 H 124/92 H Blood Pressure Mean 102 102 Pulse Ox 95 95 Oxygen Delivery Method Room Air Room Air 02/25/25 22:34 02/25/25 22:45 02/25/25 23:00 Temperature 98.6 F 98.3 F Temperature Source Oral Oral Pulse Rate 90 91 92 Respiratory Rate 15 14 15 Respiratory Pattern Blood Pressure 136/95 H 137/100 H 145/88 H Blood Pressure Mean 108 112 107 Pulse Ox 100 100 98 Oxygen Delivery Method Room Air Room Air Room Air 02/26/25 00:00 02/26/25 01:40 Temperature 98.8 F Temperature Source Pulse Rate 68 90 Respiratory Rate 16 16 Respiratory Pattern Blood Pressure 135/91 H 151/95 H Blood Pressure Mean 105 113 Pulse Ox 100 99 Oxygen Delivery Method Room Air Positive well nourished and well developed General Appearance ED: well developed and NAD HEENT Reports moist mucous membranes Eyes PERRL General Eye ED: Negative for scleral icterus Neck supple Chest Wall inspection of chest normal and palpation of chest normal Resp normal respiratory effort and clear to auscultation bilaterally Cardio regular rate, regular rhythm and no murmurs GI normal to inspection, nondistended, normoactive bowel sounds and non-tender Palpation: soft; Negative for tender, guarding or mass Extremity normal to inspection Extremity Narrative: 2+ radial and DP pulses General Extremety ED: Negative for edema General Extremity: Negative for edema Neuro oriented x3 Sensorium / Orientation: alert Motor Exam: general weakness Psych mental status grossly normal Skin no rashes or lesions noted and no wounds MDM MDM MDM Narrative Medical decision making narrative: Patient evaluated for abnormal outpatient chest x-ray as well as 1 month of fatigue and cough. Differential includes a paraneoplastic syndrome, pulmonary malignancy, atypical pneumonia, tuberculosis, symptomatic anemia, hypercalcemia and Electrolyte derangement. CBC shows mild leukopenia of 3.7 and a hemoglobin of 12.9 however this is stable compared to his lab work from a month ago. His CMP is largely normal except for creatinine of 1.38 (this is stable compared to a month ago) and a mildly low bicarb of 20.7. Urinalysis NAC Sustain with infection. CT of the chest abdomen pelvis obtained Which shows extensive bilateral mostly nodular airspace disease which is most consistent with infection. TB is not excluded. In addition he has mediastinal, hilar, epigastric and retroperitoneal adenopathy which is nonspecific but most likely inflammatory. He does have splenomegaly. After further discussion with the patient he denies any known exposure to someone with tuberculosis or travel outside the country since early 1999' when he was in the [place]. Patient had 1 episode of some rust colored sputum earlier this month does not been having hemoptysis. No significant fevers reported. Case discussed with hospitalist, will send off for HIV and QuantiFERON. Will start acute acquired pneumonia medications in the meantime. Is placed in TB precautions. Lab Data Attestation: I reviewed the patient's lab results. Labs: Laboratory Results - last 24 hr 02/25/25 02/25/25 02/26/25 22:35 23:40 01:35 WBC 3.7 L RBC 4.59 L Hgb 12.9 L Hct 36.5 L MCV 79.5 L MCH 28.1 MCHC 35.3 RDW Std Deviation 37.8 RDW Coeff of Samuel 13.2 Plt Count 168 MPV 9.6 Immature Gran % (Auto) 0.300 Neut % (Auto) 62.6 Lymph % (Auto) 17.1 L [place] % (Auto) 15.5 H Eos % (Auto) 3.7 Baso % (Auto) 0.8 Absolute Neuts (auto) 2.3 Absolute Lymphs (auto) 0.64 L Nucleated RBC % 0 Sodium 138 Potassium 3.9 Chloride 105 Carbon Dioxide 20.7 L Anion Gap 12 BUN 22 H Creatinine 1.38 H Estim Creat Clear Calc 72.80 Est GFR (MDRD) Non-Af 62 BUN/Creatinine Ratio 15.7 Glucose 107 H Lactic Acid < 1.0 Calcium 10.9 Magnesium 1.9 Total Bilirubin 0.43 AST 27 ALT 22 Alkaline Phosphatase 124 Total Protein 7.8 Albumin 4.3 Globulin 3.5 Albumin/Globulin Ratio 1.2 TSH 3.190 Urine Color Yellow Urine Clarity Clear Urine pH 6.0 Ur Specific [place] 1.020 Urine Protein 15 H Urine Glucose (UA) Normal Urine Ketones Negative Urine Occult Blood Negative Urine Nitrite Negative Urine Bilirubin Negative Urine Urobilinogen Normal Ur Leukocyte Esterase Negative Urine RBC 0-5 SEEN Urine WBC 0 SEEN Ur Squamous Epith Cells 0 SEEN Urine Bacteria 1+ Urine Mucus 0 SEEN HIV 1&2 Antibody Nonreactive Radiography Diagnostic Testing: Clinical Impression(s) from Imaging Studies Chest/Abdomen/Pelvis CT 02/25/25 23:19 IMPRESSION: Extensive bilateral mostly nodular airspace disease, most consistent with infection. TB is not excluded. Advise clinical correlation. No acute abdominal or pelvic findings. Mediastinal, hilar, epigastric, and retroperitoneal adenopathy, nonspecific but most likely inflammatory in etiology. Advise correlation. Reading Location: [place] [address] Rhythm Strip Rhythm Strip: Sinus Rhythm Rate: 91 Ectopy: None EKG Initial EKG: Attestation: I personally reviewed and interpreted this EKG as follows: Interpretation: Sinus Rhythm Comments: Normal sinus rhythm at a rate of 91 bpm Normal axis Normal intervals Normal ST segments Management Discussion w/another healthcare provider: Hospitalist Discharge Plan Dx/Rx/DC Orders Clinical Impression: Pneumonia, Failure of outpatient treatment, Nausea and vomiting, Decreased appetite, Malaise and fatigue, Weight loss, Diabetes mellitus Disposition Disposition: Acute Care Hospital [facility] Discharge Date/Time: 02/26/25 02:44
[2025-02-25] MEDS: 0.9% Normal Saline (1000mL) 1,000 ML 999 ML IV (22:32)
[2025-02-25 22:34] VITALS: BP 136/95; PULSE 90; RESP 15; TEMP 37; O2SAT 100
[2025-02-25 22:44] LABS: Hematocrit 36.5 % (40-54); Hemoglobin 12.9 g/dL (13.0-16.5); Immature Granulocytes Count 0.010 X10^3/uL (0.0-0.0); Mean Corp Hgb Conc 35.3 g/dL (32-36); Mean Corpuscular Volume 79.5 fL (80-94); Mean Platelet Vol. 9.6 fl (6.2-12.0); NRBC Flagged by Analyzer 0 % (0-5); Platelet Count 168 K/mm3 (150-450); RBC Distribution Width CV 13.2 % (11.6-14.6); RBC Distribution Width SD 37.8 fl (35.1-43.9); Red Blood Count 4.59 M/mm3 (4.6-6.2); White Blood Count 3.7 K/mm3 (4.4-11.0)
[2025-02-25 22:45] VITALS: BP 137/100; PULSE 91; RESP 14; O2SAT 100
[2025-02-25 22:59] LABS: AST(SGOT) 27 U/L (<=37); Alanine Aminotransfer ALT/SGPT 22 U/L (<=46); Albumin, Serum 4.3 g/dL (3.5-5.0); Alkaline Phosphatase 124 U/L (40-129); Anion Gap 12 (5-15); BUN 22 mg/dL (4-19); BUN/Creat Ratio 15.7 RATIO (10-20); Calcium,Total 10.9 mg/dL (7.6-11.0); Carbon Dioxide 20.7 mmol/L (21.0-32.0); Chloride 105 mmol/L (98-108); Estimated Creatinine Clearance 72.80 ml/min (50-250); Globulin 3.5 g/dL (2.2-4.2); Glucose 107 mg/dL (70-99); Potassium 3.9 mmol/L (3.3-5.1)
[2025-02-25 23:00] VITALS: BP 145/88; PULSE 92; RESP 15; TEMP 36.8; O2SAT 98
--- NOTE | 2025-02-25 23:19 | CT_ITS ---
PROCEDURE: CT CHEST, ABD, PEL W/CONTRAST 02/25/2025 REASON FOR EXAM: ABNORMAL CXR, WEIGHT LOSS TECHNIQUE: Chest, abdomen and pelvis CT with intravenous contrast. Coronal and Sagittal reconstruction series were provided. One or more dose reduction techniques were used (e.g., Automated exposure control, adjustment of the mA and/or kV according to patient size, use of iterative reconstruction technique. PATIENT PREPARATION: Per protocol ORAL CONTRAST TYPE: None. AMOUNT: mL CONTRAST: Isovue 370 VOLUME: 99mL Gauge IV RADIATION DOSE SUMMARY: CTDlvol: 48 mGy DLP: 1533 mGycm COMPARISON: Chest x-ray 01/22/2025 FINDINGS: Unremarkable base of neck and axilla. Normal esophagus. Normal heart size. No acute vascular pathology. Extensive calcified mediastinal and bilateral hilar lymph nodes. Thoracic spine degeneration. No acute chest wall findings. Central airways are patent. Well inflated lungs. Bilateral, fairly extensive small nodular airspace disease involving all lobes. More localized, dense consolidation in the posterior aspect of the right middle lobe, which could also represent consolidation or chronic atelectasis. Unremarkable liver, gallbladder, pancreas. Splenic enlargement, 17 cm length.. Unremarkable adrenal glands. Bilateral simple renal cysts. No hydronephrosis. Normal bladder. Slightly enlarged prostate. No retroperitoneal hematoma. There is mild para-aortic retroperitoneal adenopathy, nonspecific. No pelvic adenopathy. There is partially calcified epigastric adenopathy. No free air. Nonobstructed bowel. Status post appendectomy. Multiple diverticula. Lumbar spine degeneration. No acute abdominal wall findings. CT/CT Chest, Abd, Pel w/Contrast IMPRESSION: Extensive bilateral mostly nodular airspace disease, most consistent with infec tion. TB is not excluded. Advise clinical correlation. No acute abdominal or pelvic findings. Mediastinal, hilar, epigastric, and retroperitoneal adenopathy, nonspecific but most likely inflammatory in etiology. Advise correlation. Reading Location: [place] [address]
[2025-02-25 23:46] LABS: Mucous, Urine 0 SEEN /hpf (<or=2+); Squamous Epithelial Cells - UA 0 SEEN /hpf (0-5)
[2025-02-25 23:52] LABS: Color, Urine Yellow (Yellow); Glucose, Dipstick Normal (Normal); Ketone-Dipstick Negative (Negative); Leukocyte Esterase-Dipstick Negative /ul (Negative); Nitrite-Dipstick Negative (Negative); Occult Blood-Urine Negative /ul (Negative); Protein-Dipstick 15 mg/dl (Negative); Specific Gravity, Urine 1.020 (1.002-1.030); Urine Bilirubin Dipstick Negative (Negative)
[2025-02-26] VITALS (12 sets, daily range): BP systolic 128–151; BP diastolic 84–99; PULSE 68–98; RESP 14–18; TEMP 36.4–37.5; O2SAT 96–100; BMI 24.3
[2025-02-26 00:11] LABS: Red Blood Cells-Urine 0-5 SEEN /hpf (0-5)
--- NOTE | 2025-02-26 01:17 | HP.PCM.HOS_ITS ---
[facility] - General General Date of Admission: 02/26/25 Date of Service: 02/26/25 Chief Complaint: Fatigue and Cough. HPI Narrative TRESA AGUIRRE, is a 54 M with a past medical history of DM-2; of unknown control on metformin twice daily plus dulaglutide, diabetic neuropathy; on gabapentin, history of COVID-19, seasonal allergies; on loratadine, history of GERD; currently not on treatment, recently diagnosed hypercalcemia; followed by his PCP with level falling from 12.4 mg/dL down to 11.3 mg/dL and recently diagnosed pneumonia; treated with a course of oral doxycycline who presents to [facility] ER complaining of fatigue and cough. Mr. Aguirre reports that he had transient improvement for 1 week while on oral doxycycline but then his symptoms returned and he began feeling worse again so he decided to go back and see his PCP. His doctor then ordered follow-up x-rays which showed numerous pulmonary nodules and suspected Right perihilar lung mass so he was then apparently sent to the ER for further evaluation and treatment. The patient admits to ongoing fatigue and cough with rust colored sputum with an unintentional ~5 pound weight loss over the past month with poor appetite and nonbloody diarrhea with malaise but he denies hemoptysis, chest pain, leg swelling, history of similar previous episodes, history of TB, history of immune suppression, history of tobacco abuse, recent known sick contacts or recent significant travel. In the ER he was noted to have Leukopenia of 3.7K present on admission with a corresponding CT scan of the chest abdomen pelvis with IV contrast that revealed extensive bilateral mostly nodular airspace disease most consistent with infection with TB not excluded and clinical correlation advised with otherwise no acute abdominal or pelvic findings but with mediastinal, hilar, epigastric and retroperitoneal adenopathy that is nonspecific most likely inflammatory in etiology with clinical correlation advised. He was then admitted to the general medical floor for ongoing care for a stay that is expected to extend beyond 2 midnights. [facility] Medical History (Updated 02/26/25 @ 03:46 by Celena Portillo) Hearing loss, right BiPAP (biphasic positive airway pressure) dependence Sleep apnea COVID Diabetes GERD (gastroesophageal reflux disease) Home Medications ?Medication ?Instructions ?Recorded ?Last Taken ?Type aspirin 81 mg tablet,delayed 81 mg PO DAILY 01/21/25 U nknown History release (Adult Aspirin Regimen) dulaglutide 0.75 mg/0.5 mL 0.75 mg subcut [place] 01/21/25 Unknown History subcutaneous pen injector (Trulicity) gabapentin 300 mg capsule 300 mg PO DAILY 01/21/25 Unk nown History loratadine 10 mg tablet 10 mg PO DAILY 01/21/25 Unkn own History (Allerclear) metformin 500 mg tablet,extended 1,000 mg PO BID 01/21 Unknown History release 24 hr Allergy/AdvReac Type Severity Reaction Status Date / Time Penicillins (PCN) Allergy Rash Verified 02/25/25 20:45 Social History Smoking Status: Never smoker ROS ROS Narrative Review of Systems: Constitutional: Patient admits to unintentional weight loss with decreased appetite and malaise. He denies fevers, chills or night sweats. Eyes: Patient denies change in vision or discharge from eyes. ENT: Patient denies runny nose, sore throat or ear pain. Resp: Patient admits to shortness of breath with cough productive of rust- colored sputum as per HPI. He denies hemoptysis. CV: Patient denies chest pain, palpitations, heart racing or lower extremity edema. GI: Patient admits to nonbloody diarrhea with nausea and vomiting with bilious emesis as per HPI. He denies abdominal pain. : Patient admits to urinary frequency but he denies dysuria. MSK: Patient denies arthralgias or myalgias. Skin: Patient denies rash, abscess, wounds or jaundice. Psych: Patient denies symptoms of uncontrolled depression or anxiety. Neuro: Patient admits to paresthesias and generalized weakness but he denies headache. Allergy: Patient denies lip swelling, tongue swelling or urticaria. Hematology: Patient denies easy bleeding or easy bruisability. Endocrinology: Patient admits to polyuria but he denies polydipsia, polyphagia or heat/cold intolerance. 14 point ROS otherwise negative except for positives noted above in HPI. Vital Signs Vital Signs Vital Signs: 02/25/25 20:45 02/25/25 20:48 02/25/25 22:32 Temperature 99.1 F 99.1 F Temperature Source Oral Oral Pulse Rate 105 H 105 H Respiratory Rate 18 18 Respiratory Pattern Normal Blood Pressure 124/92 H 124/92 H Blood Pressure Mean 102 102 Pulse Ox 95 95 Oxygen Delivery Method Room Air Room Air 02/25/25 22:34 02/25/25 22:45 02/25/25 23:00 Temperature 98.6 F 98.3 F Temperature Source Oral Oral Pulse Rate 90 91 92 Respiratory Rate 15 14 15 Respiratory Pattern Blood Pressure 136/95 H 137/100 H 145/88 H Blood Pressure Mean 108 112 107 Pulse Ox 100 100 98 Oxygen Delivery Method Room Air Room Air Room Air 02/26/25 00:00 Temperature Temperature Source Pulse Rate 68 Respiratory Rate 16 Respiratory Pattern Blood Pressure 135/91 H Blood Pressure Mean 105 Pulse Ox 100 Oxygen Delivery Method Room Air Weight Weight: 190 lb 8 oz Body Mass Index (BMI) 24.4 Physical Exam Const alert, oriented x3, no apparent distress, average body habitus and healthy appearing General Appearance: cooperative HEENT normocephalic, head/scalp atraumatic, hearing grossly normal bilaterally and moist oral mucous membranes Eyes PERRL, EOMs intact bilaterally and conjunctivae normal Neck no lymphadenopathy, supple and no JVD Resp normal respiratory effort, no retractions, no use of accessory muscles and clear to auscultation bilaterally Cardio regular rate and regular rhythm GI normal to inspection, nondistended, normoactive bowel sounds, soft to palpation, non-tender and non-distended Extremity normal to inspection, full ROM and no clubbing, cyanosis or edema Skin Skin Narrative: Patient has evidence of rash, abscess, wounds or jaundice. Neuro oriented x3, CN's II-XII intact bilaterally, moves all extremities and no focal motor deficits Sensorium / Orientation: awake, alert, oriented to person, oriented to place and oriented to time Speech: speech normal Psych affect normal Results Medical Records Data Attestation: I reviewed the patient's medical records Lab / Micro Data Attestation: I reviewed the patient's lab results. 02/25/25 22:35 02/25/25 22:35 Labs: Laboratory Results - last 24 hr 02/25/25 22:35: WBC 3.7 L, RBC 4.59 L, Hgb 12.9 L, Hct 36.5 L, MCV 79.5 L, MCH 28.1, MCHC 35.3, RDW Std Deviation 37.8, RDW Coeff of Samuel 13.2, Plt Count 168, MPV 9.6, Immature Gran % (Auto) 0.300, Neut % (Auto) 62.6, Lymph % (Auto) 17.1 L , [place] % (Auto) 15.5 H, Eos % (Auto) 3.7, Baso % (Auto) 0.8, Absolute Neuts (auto) 2.3, Absolute Lymphs (auto) 0.64 L, Nucleated RBC % 0, Sodium 138, Potassium 3.9, Chloride 105, Carbon Dioxide 20.7 L, Anion Gap 12, BUN 22 H, C reatinine 1.38 H, Estim Creat Clear Calc 72.80, Est GFR (MDRD) Non-Af 62, BUN/Creatinine Ratio 15.7, Glucose 107 H, Lactic Acid < 1.0, Calcium 10.9, Total Bilirubin 0.43, AST 27, ALT 22, Alkaline Phosphatase 124, Total Protein 7.8, Albumin 4.3, Globulin 3.5, Albumin/Globulin Ratio 1.2 02/25/25 23:40: Urine Color Yellow, Urine Clarity Clear, Urine pH 6.0, Ur Specific [place] 1.020, Urine Protein 15 H, Urine Glucose (UA) Normal, Urine Ketones Negative, Urine Occult Blood Negative, Urine Nitrite Negative, Urine Bilirubin Negative, Urine Urobilinogen Normal, Ur Leukocyte Esterase Negative, Urine RBC 0-5 SEEN, Urine WBC 0 SEEN, Ur Squamous Epith Cells 0 SEEN, Urine Bacteria 1+, Urine Mucus 0 SEEN Imaging Radiology Impression Chest/Abdomen/Pelvis CT 02/25/25 23:19 IMPRESSION: Extensive bilateral mostly nodular airspace disease, most consistent with infection. TB is not excluded. Advise clinical correlation. No acute abdominal or pelvic findings. Mediastinal, hilar, epigastric, and retroperitoneal adenopathy, nonspecific but most likely inflammatory in etiology. Advise correlation. Reading Location: [facility] Assessment & Plan Assessment/Plan (1) Pneumonia: QUALIFIERS: Laterality: bilateral Lung location: unspecified part of lung Pneumonia type: due to unspecified organism Qualified Code(s): J18.9 - Pneumonia, unspecified organism (2) Failure of outpatient treatment: (3) Diarrhea: QUALIFIERS: Diarrhea type: presumed infectious Qualified Code(s): R19.7 - Diarrhea, unspecified (4) Nausea and vomiting: QUALIFIERS: Vomiting type: bilious vomiting Qualified Code(s): R 11.14 - Bilious vomiting (5) Decreased appetite: (6) Malaise and fatigue: (7) Weight loss: PLAN: Plan 1. CT scan of the chest abdomen pelvis with IV contrast that revealed extensive bilateral mostly nodular airspace disease most consistent with infection with TB not excluded and clinical correlation advised with otherwise no acute abdominal or pelvic findings but with mediastinal, hilar, epigastric and retroperitoneal adenopathy that is nonspecific most likely inflammatory in etiology with clinical correlation advised in the setting of recently diagnosed pneumonia that failed outpatient treatment with oral doxycycline - Admit to general medical floor. Continue empiric IV ceftriaxone and IV azithromycin begun in the ER and await culture and sensitivity data. Check urinary antigens to Streptococcus pneumonia and Legionella. Check sputum cultures. Give acetaminophen as needed for [id number] (level 1-5/10) pain or fever. Give oxycodone as needed for severe (level 6-10/10) pain. Give promethazine IM as needed for nausea and vomiting. Finally, we will consult both pulmonology and infectious disease to see this patient on rounds in the a.m. for further recommendations with help appreciated in advance. 2. Nonbloody Diarrhea with Nausea and Vomiting with bilious emesis with decreased appetite, malaise and unintentional ~5 pound weight loss complicating #1 - Check stool studies and placed on enteric precautions until infectious etiology definitively ruled out. Give antiemetics as needed as outlined in #1. Patient was apparently told to stop taking vitamins by his PCP with suspicion for hypervitaminosis D. 3. Recently diagnosed hypercalcemia; followed by his PCP with level falling from 12.4 mg/dL down to 11.3 mg/dL - Noted with the patient having a normal calcium level of 10.9 mg/dL present on admission. 4. DM-2; of unknown control on metformin twice daily plus dulaglutide plus diabetic neuropathy; on gabapentin - ADA diet. Hold oral hypoglycemic agent in addition to the dulaglutide. Check FSBS q. AC/HS plus SSI. Check hemoglobin A1c to objectively evaluate quality of diabetic control. 5. History of COVID-19 - Noted. 6. Seasonal allergies; on loratadine - Maintain loratadine as previous. 7. History of GERD; currently not on treatment - Start famotidine 20 mg IV twice daily. 8. DVT prophylaxis - Enoxaparin 40 mg subcu daily plus SCDs. Total time: Approximately (but not less than) 55 minutes. Charges/Coding Visit Charges Inpatient E&M: 45000 Init Hosp L2
--- OUTSIDE RECORDS SUMMARY | 2025-02-26 02:07 | XMS RPT_ITS | CCD ---
Author Organization [facility] Care Team Providers Care Parimutuel Ticket Seller Name Role Phone Edouard Noland MD Primary Care Provider Zoie Grijalva Unavailable Jairo [facility], [place] Unavailable Zoie Grijalva Unavailable Unavailable [facility], [place] Unavailable Edouard Noland MD Primary Care Provider Haagen STORE PERSON.FRUIT OR NUT FARMWORKERBobbi Unavailable Suppan STORE PERSON.FRUIT OR NUT FARMWORKER, Adrienne A Unavailable [place]an STORE PERSON.FRUIT OR NUT FARMWORKER, Adrienne A Unavailable [phone] Dr. Edouard Noland MD Primary Care Provider Dr. Elliot Caceres DO Emergency Provider Camryn DIABETES EDUCATION COORDINATOR, Jh Briscoe Attending Unavailable Edouard Noland Primary Care Unavailable Chandler iN Referring UnavailhCandler Kingsley Attending Unavailsam e Edouard Noland Primary [...] sources) Amoxicillin; Translations: [AMOXICILLIN] Drug Allergy 5 [facility] Work Phone: (20 sources) Animal Dander; Translations: [ANIMAL DANDER] Drug Intolerance 2 Intolerance [facility] Work Phone: (20 sources) Ketoconazole; Translations: [KETOCONAZOLE] Drug Allergy 3 [facility] (1 source) Penicillins Allergy to substance 5 [facility] (1 source) Penicillins Drug allergy (disorder) [address] [facility] Repository Medications Current Medications Medication Drug [...] complication, without long-term current use of insulin ([facility]) Glucose Meter of Choice - Kit - Dx: Type 2 DM - Controlled E11.9 1 Each 0 01/02/2023 01/03/2023 Active Comment on above: Glucose Meter of Cho ice - Kit - Dx: Type 2 DM - Controlled E11.9 Blood-Glucose Meter,Continuous (FREESTYLE WYATT 3 READER) misc (8 sources) Start: 07-02-2025 Blood-Glucose Meter,Continuous (FREESTYLE WYATT 3 READER) [facility] [place] Indications: Controlled type 2 diabetes mellitus without [...] ST 16/11 cmH2O with BUR 12 DME [facility] 1 Each 10/09/2024 02/24/2052 Active Start: 09-01-2024 End: 01-17-2052 CPAP/BIPAP/OTHER Bilevel ST 14/10 cmH2O with BUR 12 BPM [facility] [place] 1 Each 09/01/2024 01/17/2052 Active Start: 05-27-2024 End: 09-01-2024 CPAP/BIPAP/OTHER biPAP ST 13 /9 cmH2O with BUR 12 bpm [facility] [place] 1 Each 05/27/2024 09/01/2024 Discontinued Start: 05-27-2024 End: 10-12-2051 CPAP/BIPAP/OTHER biPAP ST 13 /9 cmH2O with BUR 12 bpm [facility] 1 Each 05/27/2024 10/12/2051 Active 0.5 [...] Comment on above: Take 1 capsule by [facility] once daily. Magnesium (20 sources) End: MAGNESIUM [...] tablet by mouth once daily. Active nystatin 387202 unt/ml topical cream (20 sources) Polyene Antifungal [...] VIT D1,25 DIHYDROXY 91.1 pg/mL High 19.9-79.3 [facility] Comment on above: Order Comment: Speci men Type: BLOOD SPECIMENOrdering Facility: [facility] Address: [address] [place] [address] Performed By: #### 1 649-3, 1988-09 ####[facility] [id number] [place] [address] [place] 25(OH)D3 [facility] 2024 25-hydroxyvitamin D3 [Mass/Vol] 26.5 ng/mL Low 31.0-80.0 [facility] Comment on above: Order Comment: Speci men Type: BLOOD SPECIMENOrdering Facility: [facility] Address: [address] [place] [address] Performed By: #### 1 6493, 1988-09 ####[facility] [id number] [place] [id number] [place] Basic metabolic 2000 panelon 02-10-2025 Anion gap [Moles/Vol] 12 mmol/L Normal 8-15 [facility] Comment on above: Order Comment: Speci men Type: BLOOD SPECIMEN Ordering Facility: [facility] Address: [address] [place] [address] Performed By: #### 5 5454-3 #### [facility] CLIA [id number] [address] [place] [address] [place] Calcium [Mass/Vol] 11.3 mg/dL High 8.5-10.2 [facility] Comment on above: Order Comment: Speci men Type: BLOOD SPECIMEN Ordering Facility: [facility] Address: [address] [place] [address] Performed By: #### 5 5454-3 #### [facility] CLIA [id number] [address] [place] [address] [place] Chloride [Moles/Vol] 102 mmol/L Normal 98-107 [facility] Comment on above: Order Comment: Speci men Type: BLOOD SPECIMEN Ordering Facility: [facility] Address: [address] [place] [address] Performed By: #### 5 5454-3 #### [facility] CLIA [id number] [address] [place] [address] [place] CO2 [Moles/Vol] 23 mmol/L Normal 22-30 [facility] Comment on above: Order Comment: Speci men Type: BLOOD SPECIMEN Ordering Facility: [facility] Address: [address] [place] [address] Performed By: #### 5 5454-3 #### [facility] CLIA [id number] [address] [place], [place] [id number] [place] Creatinine [Mass/Vol] 1.37 mg/dL High 0.73-1.22 [facility] Comment on above: Order Comment: Jhony brunner Type: BLOOD SPECIMEN Ordering Facility: [facility] Address: [address] [place] [address] Performed By: #### 5 5454-3 #### [facility] CLIA [id number] [address] [place] [address] [place] eGFRcr SerPlBld CKD-EPI 2020 62 mL/min/1.73m??? Normal >=60 [facility] Comment on above: Order Comment: Jhony brunner Type: BLOOD SPECIMEN Ordering Facility: [facility] Address: [address] [place] [address] Result Comment: Lynne mated Glomerular Filtration Rate [...] GFR. Performed By: #### 5 5454-3 #### [facility] CLIA [id number] [address] [place] [address] [place] Glucose [Mass/Vol] 136 mg/dL High 74-99 [facility] Comment on above: Order Comment: Jhony brunner Type: BLOOD SPECIMEN Ordering Facility: [facility] Address: [address] [place] [address] Result Comment: The [place] Diabetes Association (ADA) provides guidance for cutoff [...] Standards of Medical Care in Diabetes 2016, [place] Diabetes Association. Diabetes Care. 2016.39(Suppl 1). Performed By: #### 5 5454-3 #### [facility] CLIA [id number] [address] [place] [address] [place] Potassium [Moles/Vol] 3.9 mmol/L Normal 3.7-5.1 [facility] Comment on above: Order Comment: Speci men Type: BLOOD SPECIMEN Ordering Facility: [facility] Address: [address] [place] [address] Performed By: #### 5 5454-3 #### [facility] CLIA [id number] [address] [place] [address] [place] Sodium [Moles/Vol] 137 mmol/L Normal 136-144 [facility] Comment on above: Order Comment: Speci men Type: BLOOD SPECIMEN Ordering Facility: [facility] Address: [address] [place] [address] Performed By: #### 5 5454-3 #### [facility] CLIA [id number] [address] [place] [address] [place] Urea nitrogen [Mass/Vol] 18 mg/dL Normal 9-24 [facility] Comment on above: Order Comment: Speci men Type: BLOOD SPECIMEN Ordering Facility: [facility] Address: [address] [place] [address] Performed By: #### 5 5454-3 #### [facility] CLIA [id number] [address] [place] [address] [place] PTH RELATED PEPTIDEon 2024 PTH RELATED PEPTIDE 3.2 pmol/L High 0.0-2.3 [facility] Comment on above: Order Comment: Speci men Type: BLOOD SPECIMENOrdering Facility: [facility] Address: [address] [place] [address] Result Comment: INTE RPRETIVE INFORMATION: Parathyroid Hormone-Related Peptide This test was developed and its performance characteristics determined by [facility]. It has not been cleared or approved by the US Food and Drug Administration. This test was performed in a CLIA certified laboratory and is intended for clinical purposes. Performed By: [facility] [address] [place] [address] Architect Manager: Bg Merida MD, PhD [place] Number: [id number] Performed By: #### P [facility] ####[facility] LABORATORIESIA [id number] [place] [address] BD DXA - AXIAL SKELETONon BD DXA [...] years, Gender: Male SCANNER INFORMATION: DXA Model: Cost Effective Data C [id number] Date Scanned: 02/03/2025 11:33 AM CLINICAL HISTORY: [...] had a previous bone density in the [facility] or the previous bone density was performed on a different DXA machine (new, updated model or different location) within the [facility]. VERTEBRAL FRACTURE ASSESSMENT Not performed. TRABECULAR [...] FOR MORE INFORMATION ABOUT DIAGNOSIS AND TREATMENT: [facility] for Osteoporosis and Metabolic Bone Disease:? www.ccf.org/arthritis/oste o National Osteoporosis Foundation:? www.nof.org International Society of Clinical Densitometry www.iscd.org Concrete Layer: STEPHAN Transcribe Date/Time: Feb 06 2025 6:59A Dictated by : YAMILETH ZAMAN MD This examination was interpreted and the report reviewed and electronically signed by: YAMILETH ZAMAN MD on Feb 06 2025 7:01AM EST [id number] -[id number] Normal [facility] BD DXA TRABECLR BONE SCORE ( TBS)on [...] years, Gender: Male SCANNER INFORMATION: DXA Model: Cost Effective Data C [id number] Date Scanned: 02/03/2025 11:33 AM CLINICAL HISTORY: [...] had a previous bone density in the [facility] or the previous bone density was performed on a different DXA machine (new, updated model or different location) within the [facility]. VERTEBRAL FRACTURE ASSESSMENT Not performed. TRABECULAR [...] FOR MORE INFORMATION ABOUT DIAGNOSIS AND TREATMENT: [facility]osis and Metabolic Bone Disease:? www.ccf.org/arthritis/oste o National Osteoporosis Foundation:? www.nof.org International Society of Clinical Densitometry www.iscd.org Concrete Layer: STEPHAN Transcribe Date/Time: Feb 06 2025 6:59A Dictated by : YAMILETH ZAMAN MD This examination was interpreted and the report reviewed and electronically signed by: YAMILETH ZAMAN MD on Feb 06 2025 7:01AM EST [id number] -0.9 [facility] [place] 02-02-2025 CNPN Telephone (FAMPWS) -- TRESA MUÑOZ ([id number]) 1970 M Date Time Provider Department 02/02/25 [...] Fully Assessed Reason for Visit: Patient Question [1507] Primary Visit Diagnosis:Bacterial pneumonia [J15.9] Order(s):XR CHEST 2V FRONTAL/LAT [[id number]] Order #: [id number] FUTURE Prescriptions as of 02/02/2025 - Blood-Glucose Sensor (FREESTYLE WYATT 3 PLUS SENSOR) benjy Apply new sensor every fourteen (14) days to upper arm. - Blood-Glucose Meter,Continuous (FREESTYLE WYATT 3 READER) [facility] [place] Use to check blood sugar at least [...] ST 16/11 cmH2O with BUR 12 DME [facility] - gabapentin (NEURONTIN) 300 mg capsule [...] on 02/02/25 [facility] [place] [facility]20[facility] TRES[facility] MUÑ[facility]Z ([id number]) 1970 M Date Time Provider Department 01/28/25 [...] message to return call and ask for museum service scheduler can assit with scheduling for the Endocrine [...] [E83.52] Order(s):PTH RELATED PEPTIDE [SQPTHPEP] Order #: [id number] FUTURE VITAMIN D 25 HYDROXY [SQVITD] Order #: [id number] FUTURE VITAMIN D1 25-DIHYDR [KZJPB384] Order #: [id number] FUTURE BASIC METABOLIC PANEL [SQBMP] Order #: [id number] FUTURE Prescriptions as of 02/03/2025 - Blood-Glucose Sensor (FREESTYLE WYATT 3 PLUS SENSOR) benjy Apply new sensor every fourteen (14) days to upper arm. - Blood-Glucose Meter,Continuous (FREESTYLE WYATT 3 READER) [facility] [place] Use to check blood sugar at least [...] ST 16/11 cmH2O with BUR 12 DME [facility] - gabapentin (NEURONTIN) 300 mg capsule [...] Status:Closed by KEIRA LOOMIS on 02/03/25 Normal [facility] Emergency Department Summary on 01-22-2025 Emergency Department Summary [facility] Medical Records Department [address] [place] [address] Emergency Department Summary 01/22/25 MR#: [id number] Acct: [id number] Name: TRESA MUÑOZ Rep #: [id number] : 1970 54 From: Elliot Caceres DO [...] such as COPD emphysema smoking or vaping. [facility] Medical History (Updated 01/25/25 @ 02:24 by [...] 5/5 throughout (more content not included)... Normal [facility] L499.0042on 01-22-2025 Trop T High Sen 16 ng/L Normal <=[address] [facility] Comment on above: Performed By: #### L 499.0042 #### [facility] [address] [facility] [place], [address] L499.0043on 01-22-2025 Trop T High Sen Normal <=[address] [facility] Comment on above: Result Comment: Adithya mcdermott via OM: Ordered Performed By: #### L 499.0043 #### [facility] [address] [facility] [place], [address] Troponin T.cardiac [Mass/vol ume] in Serum or Plasma by High sensitivity methodOrdered By: Elliot Caceres on 01-22-2025 Troponin T.cardiac High sensitivity method [Mass/Vol] 16 ng/L <[address] [facility] Absolute lymphocyte countOrd ered By: Elliot Caceres on 01-21-2025 Lymphocytes Auto (Unsp spec) [#/Vol] 0.69 10*3/uL Low 0.83-4.[address] [facility] Absolute neutrophil countOrd ered By: Elliot Caceres on 01-21-2025 Neutrophils (Bld) [#/Vol] 2.5 10*3/uL 2.0-7.[address] [facility] Anion gap in Serum or Plasma Ordered By: Elliot Caceres on 01-21-2025 Anion gap [Moles/Vol] 14 mmol/L 5- [facility] Automated lymphocyte count a s percentage of total leukocytesOrdered By: Elliot Caceres on 01-21-2025 Lymphocytes/100 WBC Auto (Unsp spec) 16.9 % Low 19-[address] [facility] BUN/creatinine ratioOrdered By: Elliot Caceres on 01-21-2025 Urea nitrogen/Creatinine [Mass ratio] 15.7 mg/mg 10- [facility] Basic Metabolic Profile (BMP )on 01-21-2025 BUN/CRE 15.7 RATIO Normal - [facility] Comment on above: Performed By: #### L 500.2500, L501.4021, L100.0100 #### [facility] [address] [place], [address] Calcium [Mass/Vol] 12.5 mg/dL High 7.6-11.0 [facility] Comment on above: Performed By: #### L 500.2500, L501.4021, L100.0100 #### [facility] [address] [place], [address] Chloride [Moles/Vol] 101 mmol/L Normal 98-108 [facility] Comment on above: Performed By: #### L 500.2500, L501.4021, L100.0100 #### [facility] [address] [place], [address] CO2 [Moles/Vol] 23.3 mmol/L Normal 21.0-32.[address] [facility] Comment on above: Performed By: #### L 500.2500, L501.4021, L100.0100 #### [facility] [address] [place], [address] Creatinine [Mass/Vol] 1.41 mg/dL High 0.70-1.20 [facility] Comment on above: Performed By: #### L 500.2500, L501.4021, L100.0100 #### [facility] [address] [place], [address] ECRCL 71.25 ml/min Normal 50-[address] [facility] Comment on above: Performed By: #### L 500.2500, L501.4021, L100.0100 #### [facility] [address] [place], [address] GAP 14 Normal 5-[address] [facility] Comment on above: Performed By: #### L 500.2500, L501.4021, L100.0100 #### [facility] [address] [place], [address] GFR/1.73 sq M.predicted among non-blacks MDRD (S/P/Bld) [Vol rate/Area] 60 mL/min/{1.73_m2} Normal >[address] [facility] Comment on above: Result Comment: mL/m in/1.73m2 CKD-EPI Creatinine Equation (2020) Performed By: #### L 500.2500, L501.4021, L100.0100 #### [facility] [address] [place], [address] Glucose [Mass/Vol] 127 mg/dL High 70-99 [facility] Comment on above: Performed By: #### L 500.2500, L501.4021, L100.0100 #### [facility] [address] [place], [address] Potassium [Moles/Vol] 4.1 mmol/L Normal 3.3-5.1 [facility] Comment on above: Performed By: #### L 500.2500, L501.4021, L100.0100 #### [facility] [address] [place], [address] Sodium [Moles/Vol] 138 mmol/L Normal 133-145 [facility] Comment on above: Performed By: #### L 500.2500, L501.4021, L100.0100 #### [facility] [address] [place], [address] Urea nitrogen [Mass/Vol] 22 mg/dL High 4-[address] [facility] Comment on above: Performed By: #### L 500.2500, L501.4021, L100.0100 #### [facility] [address] [place], [address] Basophil percentageOrdered B y: Elliot Caceres on 01-21-2024 Basophils/100 WBC (Bld) 0.7 % 0-[address] [facility] CBC W/Diff, Automatedon 12-29 Absolute Lymph 0.69 X10 3/uL Low 0.83-4.[address] [facility] Comment on above: Performed By: #### L 500.2500, L501.4021, L100.0100 #### [facility] [address] [place], [address] Absolute Neut 2.5 X10 3/uL Normal 2.0-7.[address] [facility] Comment on above: Performed By: #### L 500.2500, L501.4021, L100.0100 #### [facility] [address] [place], [address] Basophils/100 WBC (Bld) 0.7 % Normal 0-[address] [facility] Comment on above: Performed By: #### L 500.2500, L501.4021, L100.0100 #### [facility] [address] [place], [address] Eosinophils/100 WBC (Bld) 5.9 % High 0-[address] [facility] Comment on above: Performed By: #### L 500.2500, L501.4021, L100.0100 #### [facility] [address] [place], [address] Erythrocyte distribution width (RBC) [Ratio] 13.0 % Normal 11.6-14.[address] [facility] Comment on above: Performed By: #### L 500.2500, L501.4021, L100.0100 #### [facility] [address] [place], [address] Hematocrit (Bld) [Volume fraction] 37.5 % Low 40-[address] [facility] Comment on above: Performed By: #### L 500.2500, L501.4021, L100.0100 #### [facility] [address] [place], [address] Hemoglobin (Bld) [Mass/Vol] 13.2 g/dL Normal 13.0-16.[address] [facility] Comment on above: Performed By: #### L 500.2500, L501.4021, L100.0100 #### [facility] [address] [place], [address] IG% 0.500 Normal 0.0-0.[address] [facility] Comment on above: Result Comment: IG% - Immature Granulocytes (promyelocytes, myelocytes and metamyelocytes) > 1% indicates that a LEFT SHIFT is Present. Performed By: #### L 500.2500, L501.4021, L100.0100 #### [facility] [address] [place], [address] Lymphocytes/100 WBC (Bld) 16.9 % Low 19-[address] [facility] Comment on above: Performed By: #### L 500.2500, L501.4021, L100.0100 #### [facility] [address] [place], [address] MCH (RBC) [Entitic mass] 27.7 pg Normal 27.0-32.[address] [facility] Comment on above: Performed By: #### L 500.2500, L501.4021, L100.0100 #### [facility] [address] [place], [address] MCHC (RBC) [Mass/Vol] 35.2 g/dL Normal 32-36 [facility] Comment on above: Performed By: #### L 500.2500, L501.4021, L100.0100 #### [facility] [address] [place], [address] MCV (RBC) [Entitic vol] 78.8 fL Low 80-[address] [facility] Comment on above: Performed By: #### L 500.2500, L501.4021, L100.0100 #### [facility] [address] [place], [address] Monocytes/100 WBC (Bld) 14.0 % High 0-[address] [facility] Comment on above: Performed By: #### L 500.2500, L501.4021, L100.0100 #### [facility] [address] [place], [address] Neutrophils/100 WBC (Bld) 62.0 % Normal 47-[address] [facility] Comment on above: Performed By: #### L 500.2500, L501.4021, L100.0100 #### [facility] [address] [place], [address] Nucleated RBC (Bld) [#/Vol] 0 10*3/uL Normal 0-[address] [facility] Comment on above: Performed By: #### L 500.2500, L501.4021, L100.0100 #### [facility] [address] [place], [address] Platelet mean volume (Bld) [Entitic vol] 9.7 fL Normal 6.2-12.[address] [facility] Comment on above: Performed By: #### L 500.2500, L501.4021, L100.0100 #### [facility] [address] [place], [address] Platelets (Bld) [#/Vol] 185 10*3/uL Normal 150-[address] [facility] Comment on above: Performed By: #### L 500.2500, L501.4021, L100.0100 #### [facility] [address], [address] RBC (Bld) [#/Vol] 4.76 10*6/uL Normal 4.6-6.2 [facility] Comment on above: Performed By: #### L 500.2500, L501.4021, L100.0100 #### [facility] [address] [place], [address] RDW SD 36.5 fl Normal 35.1-43.[address] [facility] Comment on above: Performed By: #### L 500.2500, L501.4021, L100.0100 #### [facility] [address] [place], [address] WBC (Bld) [#/Vol] 4.1 10*3/uL Low 4.4-11.0 [facility] Comment on above: Performed By: #### L 500.2500, L501.4021, L100.0100 #### [facility] [address], [address] Carbon dioxide, total [Moles /volume] in Central venous bloodOrdered By: Elliot Caceres on 01-21-2025 CO2 [Moles/Vol] 23.3 mmol/L 21.0-32.[address] [facility] Chest 1 Viewon 01-21-2025 Chest 1 View [facility] Imaging Services [address] [place] [address] Chest 1 View MR#: [id number] Acct: [id number] Name: TRESA MUÑOZ Rep #: [id number] : 1970 M 54 From: Rafi arechiga MD PCP: Dr. Edouard Noland MD Status: [facility] ER Study: Chest 1 View Date of Exam: 01/21/25 Exam# [id number] Ordering Dr: Elliot Caceres DO PROCEDURE: CHEST [...] perihilar and lower lobe infiltrates. Reading Location: [place] [address] CC: Dr. Edouard Noland MD; Elliot Caceres DO Concrete Layer: Signed Normal [facility] Chest 1 View (Portable)on Chest 1 View (Portable) [facility] Imaging Services [address] [place] [address] Chest 1 View (Portable) MR#: [id number] Acct: [id number] Name: TRESA MUÑOZ Rep #: [id number] : 1970 M 54 From: Lucero Dixon nd, MD PCP: Dr. Edouard Noland MD Status: [facility] Study: Chest 1 View (Portable) Date of Exam: 01/21/25 Exam# [id number] Ordering Dr: Elliot Caceres DO PROCEDURE: CHEST [...] may reflect pneumonitis or pneumonia. Reading Location: [id number] CC: Dr. Edouard Noland MD; Elliot Caceres DO Concrete Layer: Signed Normal [facility] Chloride assayOrdered By: Rosa Caceres on 01-21-2025 Chloride [Moles/Vol] 101 mmol/L 98-108 [facility] Eosinophil percentageOrdered By: Elliot Caceres on 01-21-2025 Eosinophils/100 WBC (Bld) 5.9 % High 0-[address] [facility] Erythrocyte distribution wid th ratioOrdered By: Elliot Caceres on 01-21-2025 Erythrocyte distribution width (RBC) [Ratio] 13.0 % 11.6-14.[address] [facility] Erythrocyte distribution wid th standard deviationOrdered By: Elliot Caceres on 01-21-2025 Erythrocyte distribution width (RBC) [Ratio] 36.5 fl 35.1-43.[address] [facility] Glomerular filtration rate ( GFR) estimation/1.73 sq m using serum, plasma, or whole bOrdered By: Elliot Caceres on 01-21-2025 GFR/1.73 sq M.predicted among non-blacks MDRD (S/P/Bld) [Vol rate/Area] 60 mL/min/{1.73_m2} >[address] [facility] Comment on above: mL/min/1.73m2 CKD-EP I Creatinine Equation (2020) Hematocrit Auto (Bld) [Volum e fraction]Ordered By: Elliot Caceres on 01-21-2025 Hematocrit (Bld) [Volume fraction] 37.5 % Low 40-[address] [facility] Hemoglobin measurementOrdere d By: Elliot Caceres on 01-21-2025 Hemoglobin (Bld) [Mass/Vol] 13.2 g/dL 13.0-16.[address] [facility] Immature granulocytes/100 WB C Auto (Bld)Ordered By: Elliot Caceres on 01-21-2025 Immature granulocytes/100 WBC (Bld) 0.500 % 0.0-0.[address] [facility] Comment on above: IG% - Immature Granu locytes (promyelocytes, myelocytes and metamyelocytes) > 1% indicates that a LEFT SHIFT is Present. L501.4021on 01-21-2025 Trop T High Sen 17 ng/L Normal <=[address] [facility] Comment on above: Performed By: #### L 500.2500, L501.4021, L100.0100 #### [facility] [address] [place] [place], [address] MCV (mean corpuscular volume ) determinationOrdered By: Elliot Caceres on 01-21-2025 MCV (RBC) [Entitic vol] 78.8 fL Low 80-[address] [facility] Magnesiumon 01-21-2025 Magnesium [Mass/Vol] 1.7 mg/dL Normal 1.5-2.2 [facility] Comment on above: Performed By: #### L 501.5200 #### [facility] [address] [place], [place], [address] Magnesium measurement (mass/ volume)Ordered By: Elliot Caceres on 01-21-2025 Magnesium (Unsp spec) [Mass/Vol] 1.7 mg/dL 1.5-2.[address] [facility] Mean corpuscular hemoglobin (MCH) determinationOrdered By: Elliot Caceres on 01-21-2025 MCH (RBC) [Entitic mass] 27.7 pg 27.0-32.[address] [facility] Mean corpuscular hemoglobin concentration (MCHC) determinationOrdered By: Elliot Caceres on 01-21-2025 MCHC (RBC) [Mass/Vol] 35.2 g/dL 32-36 [facility] Mean platelet volume determi nationOrdered By: Elliot Caceres on 01-21-2025 Platelet mean volume (Bld) [Entitic vol] 9.7 fL 6.2-12.[address] [facility] Monocyte percentageOrdered B y: Elliot Caceres on 01-21-2025 Monocytes/100 WBC (Bld) 14.0 % High 0-[address] [facility] Neutrophil percentageOrdered By: Elliot Caceres on 01-21-2025 Neutrophils/100 WBC (Bld) 62.0 % 47-[address] [facility] Nucleated red blood cell per centageOrdered By: Elliot Caceres on 01-21-2025 Nucleated RBC/100 WBC (Bld) [Ratio] 0 % 0-[address] [facility] Platelet countOrdered By: Rosa Caceres on 01-21-2025 Platelets (Bld) [#/Vol] 185 10*3/uL 150-[address] [facility] Potassium measurement (mass/ volume)Ordered By: Elliot Caceres on 01-21-2025 Potassium (Unsp spec) [Mass/Vol] 4.1 mmol/L 3.3-5.[address] [facility] RBC Auto (Bld) [#/Vol]Ordere d By: Elliot Caceres on 01-21-2025 RBC (Bld) [#/Vol] 4.76 10*6/uL 4.6-6.2 [facility] Serum creatinine measurement (mass/volume)Ordered By: Elliot Caceres on 01-21-2025 Creatinine [Mass/Vol] 1.41 mg/dL High 0.70-1.20 [facility] Serum glucose measurement (m ass/volume)Ordered By: Elliot Caceres on 01-21-2025 Glucose [Mass/Vol] 127 mg/dL High 70-99 [facility] Serum or plasma calcium jamaal urement (mass/volume)Ordered By: Elliot Caceres on 01-21-2025 Calcium [Mass/Vol] 12.5 mg/dL High 7.6-11.0 [facility] Serum or plasma urea nitroge n measurement (mass/volume)Ordered By: Elliot Caceres on 01-21-2025 Urea nitrogen [Mass/Vol] 22 mg/dL High 4-[address] [facility] Sodium levelOrdered By: Jhony Caceres on 01-21-2025 Sodium [Moles/Vol] 138 mmol/L 133-145 [facility] Troponin T.cardiac [Mass/vol ume] in Serum or Plasma by High sensitivity methodOrdered By: Elliot Caceres on 01-21-2025 Troponin T.cardiac High sensitivity method [Mass/Vol] 17 ng/L <[address] [facility] White blood cell (WBC) count Ordered By: Elliot Caceres on 01-21-2025 WBC (Bld) [#/Vol] 4.1 10*3/uL Low 4.4-11.0 [facility] US ABD RIGHT UPPER QUADRANTo n 01-19-2025 US ABD RIGHT UPPER QUADRANT * * *Final Report* * * DATE OF EXAM: Jan 19 2025 10:41AM [facility] 1032 - US ABD RIGHT UPPER QUADRANT [...] No hydronephrosis. - IMPRESSION: Hepatic steatosis. Splenomegaly. Concrete Layer: STEPHAN Transcribe Date/Time: Jan 21 2025 7:21A Dictated by : BLAYNE AMBROSIO MD This examination was interpreted and the report reviewed and electronically signed by: BLAYNE AMBROSIO MD on Jan 21 2025 7:22AM EST [id number] Normal [facility] US ABD SPLEEN -NBon 01-20-20 US [...] No hydronephrosis. - IMPRESSION: Hepatic steatosis. Splenomegaly. Concrete Layer: STEPHAN Transcribe Date/Time: Jan 21 2025 7:21A Dictated by : BLAYNE AMBROSIO MD This examination was interpreted and the report reviewed and electronically signed by: BLAYNE AMBROSIO MD on Jan 21 2025 7:22AM EST [id number] Normal [facility] TRESA MUÑOZ ([id number]) 1970 M Date Time Provider Department 01/16/25 EDOUARD NOLAND [facility] During your visit today, we [...] up with one of when back in [facility]. I am still waiting on all your labs. If you feels worse, please go to Er in [place]. Follow up with one of us when [...] ok now. They are currently stuck in [place] with their van broken down. Will call [...] Primary Visit Diagnosis:Elevated liver enzymes [R74.8] Order(s):US [facility] RIGHT UPPER QUADRANT [[id number]] Order #: [id number] FUTURE Prescriptions as of 01/16/2025 - multivitamin [...] biPAP ST 16/11 cmH2O with BUR 12 [facility] - gabapentin (NEURONTIN) 300 mg capsule [...] Status:Closed by LEONIE ZHENG on 01/16/25 Normal [facility] 1,25-dihydroxyvitamin D3 [Ma ss/Vol]on 01-13-2025 1,25 Dihydroxy Vitamin Total 92.8 pg/mL High 19.9 - 79.3 pg/mL [facility] Interpretation and review of laboratory results Abnormal [facility] VIT D1,25 DIHYDROXY 92.8 pg/mL High 19.9-79.3 [facility] Comment on above: Order Comment: Speci men Type: BLOOD SPECIMENOrdering Facility: [facility] Address: [address] [place] [address] [place] [address] Performed By: #### 1 649-3 ####[facility] [id number] [place] [address] [place] ALKALINE PHOSPHATASE ISOENZY MES (P)on 01-13-2025 ALK PHOS BONE % 30.4 % Normal 10.7-68.3 [facility] Comment on above: Order Comment: Speci men Type: BLOOD SPECIMENOrdering Facility: [facility] Address: [address] [place] [address] Performed By: #### A LKISOP ####[facility] LABIA [id number] [place] [address] [place] ALK PHOS LIVER % 58.2 % Normal 26.0-86.2 [facility] Comment on above: Order Comment: Speci men Type: BLOOD SPECIMENOrdering Facility: [facility] Address: [address] [place] [address] Performed By: #### A LKISOP ####[facility] LABIA [id number] [place] [address] [place] BONE FRACTION 42.3 U/L Normal 12.9-52.6 [facility] Comment on above: Order Comment: Speci men Type: BLOOD SPECIMENOrdering Facility: [facility] Address: [address] [place] [address] Performed By: #### A LKISOP ####[facility] LABIA [id number] [place] [address] [place] INTESTINE FRACTION 16.0 U/L Normal 0.0-16.3 [facility] Comment on above: Order Comment: Speci men Type: BLOOD SPECIMENOrdering Facility: [facility] Address: [address] [place] [address] Performed By: #### A LKISOP ####[facility]IA [id number] [place] [address] [place] LIVER FRACTION 80.9 U/L High 16.0-69.3 [facility] Comment on above: Order Comment: Speci men Type: BLOOD SPECIMENOrdering Facility: [facility] Address: [address] [place] [address] Performed By: #### A LKISOP ####[facility] [id number] [place] [address] [place] Neutrophils/100 WBC (Bld) 11.5 % Normal 0.0-24.2 [facility] Comment on above: Order Comment: Speci men Type: BLOOD SPECIMENOrdering Facility: [facility] Address: [address] [place] [address] Performed By: #### A LKISOP ####[facility] [id number] [place] [address] [place] ALP SerPl-cCncon 01-13-2025 ALP [Catalytic activity/Vol] 139 U/L High 38-113 [facility] Comment on above: Order Comment: Speci men Type: BLOOD SPECIMENOrdering Facility: [facility] Address: [address] [place] [address] Performed By: #### 2 4321-2, 6768-6 ####[facility] LABIA [id number] [place] [address] [place] Basic metabolic 2000 panelon 01-13-2025 Anion gap [Moles/Vol] 12 mmol/L 8 - 15 mmol/L [facility] Calcium [Mass/Vol] 11.5 mg/dL High 8.5 - 10. 2 mg/dL [facility] Chloride [Moles/Vol] 101 mmol/L 98 - 10 7 mmol/L [facility] CO2 [Moles/Vol] 25 mmol/L 22 - 30 mmol/L [facility] Creatinine [Mass/Vol] 1.55 mg/dL High 0.73 - 1.22 mg/dL [facility] GFR/1.73 sq M.predicted among non-blacks MDRD (S/P/Bld) [Vol rate/Area] 54 mL/min/{1.73_m2} Low - PINF [facility] Comment on above: Estimated Glomerular Filtration Rate [...] 178 mg/dL High 74 - 99 mg/dL [facility] Comment on above: The [place] Diabete s Association (ADA) provides guidance for [...] Standards of Medical Care in Diabetes 2016, [place] Diabetes Association. Diabetes Care. 2016.39(Suppl 1). Interpretation and review of laboratory results Abnormal [facility] Potassium [Moles/Vol] 4 mmol/L 3.7 - 5.1 mmol/L [facility] Sodium [Moles/Vol] 138 mmol/L 136 - 144 mmol/L [facility] Urea nitrogen [Mass/Vol] 31 mg/dL High 9 - 24 mg/dL [facility] Anion gap [Moles/Vol] 12 mmol/L Normal 8-15 [facility] Comment on above: Order Comment: Speci men Type: BLOOD SPECIMENOrdering Facility: [facility] Address: [address] [place] [address] Performed By: #### 2 4321-2, 6768-6 ####[facility]CL[facility] [id number] [place] [address] [place] Calcium [Mass/Vol] 11.5 mg/dL High 8.5-10.2 [facility] Comment on above: Order Comment: Speci men Type: BLOOD SPECIMENOrdering Facility: [facility] Address: [address] [place], [place] [address] Performed By: #### 2 4321-2, 68-6 ####[facility] LABCLIA [id number] [place] [address] [place] Chloride [Moles/Vol] 101 mmol/L Normal 98-107 [facility] Comment on above: Order Comment: Speci men Type: BLOOD SPECIMENOrdering Facility: [facility] Address: [address] [place] [address] Performed By: #### 2 4321-2, 68-6 ####[facility] [id number] [place] [address] [place] CO2 [Moles/Vol] 25 mmol/L Normal 22-30 [facility] Comment on above: Order Comment: Speci men Type: BLOOD SPECIMENOrdering Facility: [facility] Address: [address] [place] [address] Performed By: #### 2 4321-2, 68-6 ####[facility] [id number] [place] [address] [place] Creatinine [Mass/Vol] 1.55 mg/dL High 0.73-1.22 [facility] Comment on above: Order Comment: Speci men Type: BLOOD SPECIMENOrdering Facility: [facility] Address: [address] [place] [address] Performed By: #### 2 4321-2, 68-6 ####[facility] [id number] [place] [address] [place] Creatinine and Glomerular filtration rate.predicted panel (S/P/Bld) 54 mL/min/1.73m??? Low >=60 [facility] Comment on above: Order Comment: Speci men Type: BLOOD SPECIMENOrdering Facility: [facility] Address: [address] [place] [address] Result Comment: Lynne mated Glomerular Filtration Rate [...] GFR. Performed By: #### 2 4321-2, 6768-6 ####[facility] [id number] [place] [address] [place] Glucose [Mass/Vol] 178 mg/dL High 74-99 [facility] Comment on above: Order Comment: Jhony brunner Type: BLOOD SPECIMENOrdering Facility: [facility] Address: [address] [place] [address] Result Comment: The [place] Diabetes Association (ADA) provides guidance for cutoff [...] Standards of Medical Care in Diabetes 2016, [place] Diabetes Association. Diabetes Care. 2016.39(Suppl 1). Performed By: #### 2 4321-2, 6768-6 ####[facility] LABIA [id number] [place] [address] [place] Potassium [Moles/Vol] 4.0 mmol/L Normal 3.7-5.1 [facility] Comment on above: Order Comment: Jhony brunner Type: BLOOD SPECIMENOrdering Facility: [facility] Address: [address] [place] [address] Performed By: #### 2 4321-2, 6768-6 ####[facility] LABIA [id number] [place] [address] [place] Sodium [Moles/Vol] 138 mmol/L Normal 136-144 [facility] Comment on above: Order Comment: Specpretty brunner Type: BLOOD SPECIMENOrdering Facility: [facility] Address: [address] [place] [address] Performed By: #### 2 4321-2, 6768-6 ####[facility] [id number] [place] [address] [place] Urea nitrogen [Mass/Vol] 31 mg/dL High 9-24 [facility] Comment on above: Order Comment: Randalli men Type: BLOOD SPECIMENOrdering Facility: [facility] Address: [address] [place] [address] Performed By: #### 2 4321-2, 6768-6 ####[facility] [id number] [address] OF [facility] CNPNon 01-13-2025 [facility] TRESA MUÑOZ ([id number]) 1970 Date Time Provider Department 01/13/25 EDOUARD NOLAND [facility] During your visit today, we [...] ST 16/11 cmH2O with BUR 12 [facility] - gabapentin (NEURONTIN) 300 mg capsule [...] Status:Closed by EDOUARD NOLAND on 01/16/25 Normal [facility] Telephone (FAMPWS) -- TRESA MUÑOZ ([id number]) 1970 M Date Time Provider Department 01/13/25 EDOUARD NOLAND Zarfo During your visit today, we recorded the [...] leave a message for patient. Will send Pijon message. Allergies As of Date: 01/13/2025 Noted [...] [R74.8] Order(s):PTH RELATED PEPTIDE [SQPTHPEP] Order #: [id number] FUTURE VITAMIN D1 25-DIHYDR [RRNQT456] Order #: [id number] FUTURE CALCIUM, IONIZED [SQICA] Order #: [id number] FUTURE ALK PHOS ISOENZYM BL [SQALKISO] Order #: [id number] FUTURE BASIC METABOLIC PANEL [SQBMP] Order #: [id number] FUTURE Prescriptions as of 01/14/2025 - multivitamin [...] biPAP ST 16/11 cmH2O with BUR 12 [facility] - gabapentin (NEURONTIN) 300 mg capsule [...] for m (more content not included)... Normal [facility] Telephone (INTMWS) -- RUDY SHELLEYIC ([id number]) 1970 M Date Time Provider Department 01/13/25 EDOUARD NOLAND During your visit today, we recorded the following information about you: Virginia Hurst LPN 01/13/2025 4:04 PM Signed Electronic PA rec'd and completed for dulaglutide (TRULICITY) 0.75 mg/0.5 mL pen injector Virginia Hurst LPN 01/13/2025 4:08 PM Signed rior authorization approved Payer: [employer]ERY [phone] Note from payer: CaseId:[id number];Status:Gideon roved;Review Type:Prior Auth;Coverage Start Date:12/14/2024;Coverage End Date:01/13/2026; Approval Details Authorized from December 14, 2024 to January 13, 2026 Electronic appeal: Not supported View History Pharmacy Benefits Open Encounter TRESA MUÑOZ - [facility] ([employer]) Covered: Retail, Mail Order Unknown: Specialty, Long-Term Care BIN: [id number] : 1970 Group ID: [id number] PCN: [id number] Legal sex: M Group name: [employer] Address: [address] [place], [place] [id number] Medication Being Authorized dulaglutide (TRULICITY) 0.75 mg/0.5 mL pen injector Inject 0.75 mg subcutaneously one time a week. Dispense: 6 mL Refills: 3 Start: 01/12/2025 End: 01/12/2026 Class: Normal Diagnoses: Controlled type 2 diabetes mellitus without complication, without long-term current use of insulin (HCC) This order has been released to its destination. To be filled at: [facility] [address] [place] [id number] - [address] - [phone] Pharmacy notified. Allergies As of Date: 01/13/2025 Noted Allergy Reaction AMOXIL (AMOXICILLIN) 11/16/2014 2 - Rash ANIMAL DANDER 03/06/2012 5 - Intolerance Comments: nasal congestion KETOCONAZOLE 01/02/2023 2 - Rash Comments: blisters Date Reviewed: 09/01/2024 Reviewed by: Porsha Acharya LPN - Fully Assessed Reason for Visit: Insurance Authorization [[id number]] Prescriptions as of 01/13/2025 - multivitamin tablet [...] ST 16/11 cmH2O with BUR 12 [facility] - gabapentin (NEURONTIN) 300 mg capsule [...] Encounter Status:Closed by VIRGINIA HURST [facility] TRESA MUÑOZ ([id number]) 1970 M Date Time Provider Department 01/13/25 EDOUARD NOLAND [facility] During your visit today, we [...] Patient reports that he already left for [place]. Advised patient I could forward the information to one of the ER's along the way to [place] or [place] if he could provide Name of the [...] ST 16/11 cmH2O with BUR 12 [facility] - gabapentin (NEURONTIN) 300 mg capsule [...] Status:Closed by EDOUARD NOLAND on 01/13/25 Normal [facility] Calcium.ionized [Moles/Vol]o n 01-13-2025 Calcium.ionized (Bld) [Mass/Vol] 1.54 mmol/L High 1.08 - 1.30 mmol/L [facility] Calcium.ionized adjusted to pH 7.4 (Bld) [Moles/Vol] 1.52 mmol/L High 1.08 - 1.30 mmol/L [facility] Interpretation and review of laboratory results Abnormal [facility] Calcium.ionized (Bld) [Mass/Vol] 1.54 mmol/L High 1.08-1.30 [facility] Comment on above: Order Comment: Speci men Type: BLOOD SPECIMENOrdering Facility: [facility] Address: [address] [place] [address] Performed By: #### 1 995-0 ####[facility] [id number] [place] [address] [place] Calcium.ionized adjusted to pH 7.4 (Bld) [Moles/Vol] 1.52 mmol/L High 1.08-1.30 [facility] Comment on above: Order Comment: Speci men Type: BLOOD SPECIMENOrdering Facility: [facility] Address: [address] [place] [address] Performed By: #### 1 995-0 ####[facility] [id number] [place] [address] [place] PTH RELATED PEPTIDEon 2024 PTH RELATED PEPTIDE 3.1 pmol/L High 0.0-2.3 [facility] Comment on above: Order Comment: Speci men Type: BLOOD SPECIMEN Ordering Facility: [facility] Address: [address] [place] [address] Result Comment: INTE RPRETIVE INFORMATION: Parathyroid Hormone-Related Peptide This test was developed and its performance characteristics determined by [facility]. It has not been cleared or approved by the US Food and Drug Administration. This test was performed in a CLIA certified laboratory and is intended for clinical purposes. Performed By: [facility] [address] [place] [address] Architect Manager: Bg Merida MD, PhD [place] Number: [id number] Performed By: #### 5 5454-3 #### [facility] CLIA [id number] [address] [place] [address] [place] 25(OH)D3 SerPl-mCncon 2024 25-hydroxyvitamin D3 [Mass/Vol] 35.3 ng/mL Normal 31.0-80.0 [facility] Comment on above: Order Comment: Speci men Type: BLOOD SPECIMEN Ordering Facility: [facility] Address: [address] [place] [address] Result Comment: Clas sification of 25 [place] Vitamin D status: Deficiency/Insufficiency: < or = 30 ng/ml. Sufficiency/Optimal Levels: 31-80 ng/mL Toxicity: > 100 ng/mL. Test performed by chemiluminescent immunoassay. Performed By: #### 5 5454-3 #### [facility] CLIA [id number] [address] [place] [address] [place] 25-hydroxyvitamin D3 [Mass/V ol]on 01-12-2025 Interpretation and review of laboratory results Normal [facility] The reference range interval was based on an analysis of samples from healthy adults and may not pertain to children from 0-18 years old. [facility] ALBUMIN/CREATININE RATIO, UR INEon 01-12-2025 Albumin DL <= 20 mg/L (U) [Mass/Vol] mg/dL Normal [facility] Comment on above: Order Comment: Speci men Type: URINE SPECIMENOrdering Facility: [facility] Address: [address] [place] [address] Performed By: #### U ACR ####[facility] [id number] [place] [address] [place] Albumin/Creatinine (U) [Mass ratio] <15 Normal <30 [facility] Comment on above: Order Comment: Speci men Type: URINE SPECIMENOrdering Facility: [facility] Address: [address] [place] [address] Result Comment: Adul t Male and Female Nephrotic Criteria: <30 mg/g is considered normal to mildly increased 30-300 mg/g is considered moderately increased >300 mg/g is considered severely increased KDIGO. (2013). KDIGO 2012 Clinical Practice Guideline for the Evaluation and Management of Chronic Kidney Disease. Official Journal of the International Society of Nephrology, 3(1), 1-150. Performed By: #### U ACR ####[facility] [id number] [address] [address] [place] Creatinine (U) [Mass/Vol] 80.2 mg/dL Normal 20.0-300.0 [facility] Comment on above: Order Comment: Speci men Type: URINE SPECIMENOrdering Facility: [facility] Address: [address] [place] [address] Performed By: #### U ACR ####[facility] [id number] [place] [address] [place] CBC W Auto Differential pane l (Bld)on 01-12-2025 Basophils (Bld) [#/Vol] 0.03 10*3/uL [facility] Basophils/100 WBC (Bld) 0.7 % [facility] Differential cell count method Nom (Bld) Auto [facility] Eosinophils (Bld) [#/Vol] 0.26 10*3/uL [facility] Eosinophils/100 WBC (Bld) 5.7 % [facility] Erythrocyte distribution width (RBC) [Ratio] 13.2 % 11.5 - 15.0 % [facility] Hematocrit (Bld) [Volume fraction] 40.9 % 39.0 - 51.0 % [facility] Hemoglobin (Bld) [Mass/Vol] 13.7 g/dL 13.0 - 17.0 g/dL [facility] Immature granulocytes (Bld) [#/Vol] [facility] Immature granulocytes/100 WBC (Bld) 0.2 % [facility] Interpretation and review of laboratory results Abnormal [facility] Lymphocytes (Bld) [#/Vol] 0.7 10*3/uL Low [facility] Lymphocytes/100 WBC (Bld) 15.4 % [facility] MCH (RBC) [Entitic mass] 27.2 pg 26.0 - 34.0 pg [facility] MCHC (RBC) [Mass/Vol] 33.5 g/dL 30.5 - 36.0 g/dL [facility] MCV (RBC) [Entitic vol] 81.2 fL 80.0 - 100.0 fL [facility] Monocytes (Bld) [#/Vol] 0.61 10*3/uL [facility] Monocytes/100 WBC (Bld) 13.4 % [facility] Neutrophils (Bld) [#/Vol] 2.95 10*3/uL [facility] Neutrophils/100 WBC (Bld) 64.6 % [facility] Nucleated RBC (Bld) [#/Vol] [facility] Nucleated RBC/100 WBC (Bld) [Ratio] 0 % /100 WBC [facility] Platelet mean volume (Bld) [Entitic vol] 10.6 fL 9.0 - 12.7 fL [facility] Platelets (Bld) [#/Vol] 183 10*3/uL [facility] RBC (Bld) [#/Vol] 5.04 10*6/uL 4.20 - 6.0 0 m/uL [facility] WBC (Bld) [#/Vol] 4.56 10*3/uL [facility] Basophils (Bld) [#/Vol] 0.03 10*3/uL Normal <0.11 [facility] Comment on above: Order Comment: Speci men Type: BLOOD SPECIMEN Ordering Facility: [facility] Address: [address] [place] [address] Performed By: #### 5 5454-3 #### [facility] CLIA [id number] [address] [place] [address] [place] Basophils/100 WBC (Bld) 0.7 % Normal [facility] Comment on above: Order Comment: Speci men Type: BLOOD SPECIMEN Ordering Facility: [facility] Address: [address] [place] [address] Performed By: #### 5 5454-3 #### [facility] CLIA [id number] [address] [place] [address] [place] Differential cell count method Nom (Bld) Auto Normal [facility] Comment on above: Order Comment: Speci men Type: BLOOD SPECIMEN Ordering Facility: [facility] Address: [address] [place] [address] Performed By: #### 5 5454-3 #### [facility] CLIA [id number] [address] [place] [address] [place] Eosinophils (Bld) [#/Vol] 0.26 10*3/uL Normal <0.46 [facility] Comment on above: Order Comment: Speci men Type: BLOOD SPECIMEN Ordering Facility: [facility] Address: [address] [place] [address] Performed By: #### 5 5454-3 #### [facility] CLIA [id number] [address] [place] [address] [place] Eosinophils/100 WBC (Bld) 5.7 % Normal [facility] Comment on above: Order Comment: Speci men Type: BLOOD SPECIMEN Ordering Facility: [facility] Address: [address] [place] [address] Performed By: #### 5 5454-3 #### [facility] CLIA [id number] [address] [place] [address] [place] Erythrocyte distribution width (RBC) [Ratio] 13.2 % Normal 11.5-15.0 [facility] Comment on above: Order Comment: Speci men Type: BLOOD SPECIMEN Ordering Facility: [facility] Address: [address] [place] [address] Performed By: #### 5 5454-3 #### [facility] CLIA [id number] [address] [place] [address] [place] Hematocrit (Bld) [Volume fraction] 40.9 % Normal 39.0-51.0 [facility] Comment on above: Order Comment: Speci men Type: BLOOD SPECIMEN Ordering Facility: [facility] Address: [address] [place] [address] Performed By: #### 5 5454-3 #### [facility] CLIA [id number] [address] [place] [address] [place] Hemoglobin (Bld) [Mass/Vol] 13.7 g/dL Normal 13.0-17.0 [facility] Comment on above: Order Comment: Speci men Type: BLOOD SPECIMEN Ordering Facility: [facility] Address: [address] [place] [address] Performed By: #### 5 5454-3 #### [facility] CLIA [id number] [address] [place] [address] [place] Immature granulocytes (Bld) [#/Vol] 10*3/uL Normal <0.10 [facility] Comment on above: Order Comment: Speci men Type: BLOOD SPECIMEN Ordering Facility: [facility] Address: [address] [place] [address] Performed By: #### 5 5454-3 #### [facility] CLIA [id number] [address] [place] [address] [place] Immature granulocytes/100 WBC (Bld) 0.2 % Normal [facility] Comment on above: Order Comment: Speci men Type: BLOOD SPECIMEN Ordering Facility: [facility] Address: [address] [place] [address] Performed By: #### 5 5454-3 #### [facility] CLIA [id number] [address] [place] [address] [place] Lymphocytes (Bld) [#/Vol] 0.70 10*3/uL Low 1.00-4.00 [facility] Comment on above: Order Comment: Speci men Type: BLOOD SPECIMEN Ordering Facility: [facility] Address: [address] [place] [address] Performed By: #### 5 5454-3 #### [facility] CLIA [id number] [address] [place] [address] [place] Lymphocytes/100 WBC (Bld) 15.4 % Normal [facility] Comment on above: Order Comment: Speci men Type: BLOOD SPECIMEN Ordering Facility: [facility] Address: [address] [place] [address] Performed By: #### 5 5454-3 #### [facility] CLIA [id number] [address] [place] [address] [place] MCH (RBC) [Entitic mass] 27.2 pg Normal 26.0-34.0 [facility] Comment on above: Order Comment: Speci men Type: BLOOD SPECIMEN Ordering Facility: [facility] Address: [address] [place] [address] Performed By: #### 5 5454-3 #### [facility] CLIA [id number] [address] [place] [address] [place] MCHC (RBC) [Mass/Vol] 33.5 g/dL Normal 30.5-36.0 [facility] Comment on above: Order Comment: Speci men Type: BLOOD SPECIMEN Ordering Facility: [facility] Address: [address] [place] [address] Performed By: #### 5 5454-3 #### [facility] CLIA [id number] [address] [place] [address] [place] MCV (RBC) [Entitic vol] 81.2 fL Normal 80.0-100.0 [facility] Comment on above: Order Comment: Speci men Type: BLOOD SPECIMEN Ordering Facility: [facility] Address: [address] [place] [address] Performed By: #### 5 5454-3 #### [facility] CLIA [id number] [address] [place] [address] [place] Monocytes (Bld) [#/Vol] 0.61 10*3/uL Normal <0.87 [facility] Comment on above: Order Comment: Speci men Type: BLOOD SPECIMEN Ordering Facility: [facility] Address: [address] [place] [address] Performed By: #### 5 5454-3 #### [facility] CLIA [id number] [address] [place] [address] [place] Monocytes/100 WBC (Bld) 13.4 % Normal [facility] Comment on above: Order Comment: Speci men Type: BLOOD SPECIMEN Ordering Facility: [facility] Address: [address] [place] [address] Performed By: #### 5 5454-3 #### [facility] CLIA [id number] [address] [place] [address] [place] Neutrophils (Bld) [#/Vol] 2.95 10*3/uL Normal 1.45-7.50 [facility] Comment on above: Order Comment: Speci men Type: BLOOD SPECIMEN Ordering Facility: [facility] Address: [address] [place] [address] Performed By: #### 5 5454-3 #### [facility] CLIA [id number] [address] [place] [address] [place] Neutrophils/100 WBC (Bld) 64.6 % Normal [facility] Comment on above: Order Comment: Speci men Type: BLOOD SPECIMEN Ordering Facility: [facility] Address: [address] [place] [address] Performed By: #### 5 5454-3 #### [facility] CLIA [id number] [address] [place] [address] [place] Nucleated RBC (Bld) [#/Vol] 10*3/uL Normal <0.01 [facility] Comment on above: Order Comment: Speci men Type: BLOOD SPECIMEN Ordering Facility: [facility] Address: [address] [place] [address] Performed By: #### 5 5454-3 #### [facility] CLIA [id number] [address] [place] [address] [place] Nucleated RBC/100 WBC (Bld) [Ratio] 0.0 /100 WBC Normal [facility] Comment on above: Order Comment: Speci men Type: BLOOD SPECIMEN Ordering Facility: [facility] Address: [address] [place] [address] Performed By: #### 5 5454-3 #### [facility] CLIA [id number] [address] [place] [address] [place] Platelet mean volume (Bld) [Entitic vol] 10.6 fL Normal 9.0-12.7 [facility] Comment on above: Order Comment: Speci men Type: BLOOD SPECIMEN Ordering Facility: [facility] Address: [address] [place] [address] Performed By: #### 5 5454-3 #### [facility] CLIA [id number] [address] [place] [address] [place] Platelets (Bld) [#/Vol] 183 10*3/uL Normal 150-400 [facility] Comment on above: Order Comment: Speci men Type: BLOOD SPECIMEN Ordering Facility: [facility] Address: [address] [place] [address] Performed By: #### 5 5454-3 #### [facility] CLIA [id number] [address] [place] [address] [place] RBC (Bld) [#/Vol] 5.04 10*6/uL Normal 4.20-6.00 [facility] Comment on above: Order Comment: Speci men Type: BLOOD SPECIMEN Ordering Facility: [facility] Address: [address] [place] [address] Performed By: #### 5 5454-3 #### [facility] CLIA [id number] [address] [place] [address] [place] WBC (Bld) [#/Vol] 4.56 10*3/uL Normal 3.70-11.00 [facility] Comment on above: Order Comment: Speci men Type: BLOOD SPECIMEN Ordering Facility: [facility] Address: [address] [place] [address] Performed By: #### 5 5454-3 #### [facility] CLIA [id number] [address] [place] [address] [place] CNOVon 01-12-2025 CNOV Office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 above: Order Comment: Jhony brunner Type: BLOOD SPECIMENOrdering Facility: [facility] Address: [address] [place] [address] Result Comment: 40-5 9 mg/dL, Acceptable >59 mg/dL, High: Negative risk factor for coronary heart disease <40 mg/dL, Low: Positive risk factor for coronary heart disease Performed By: #### 3 016-3, 11554-7, 10007-3, 3024-7 ####[facility] [id number] [address] [place] Cholesterol in LDL [Mass/Vol] 89 mg/dL Normal <100 [facility] Comment on above: Order Comment: Randalli men Type: BLOOD SPECIMENOrdering Facility: [facility] Address: [address] [place] [address] Result Comment: <100 mg/dL, Optimal 100-129 mg/dL, Near optimal/above optimal 130-159 mg/dL, Borderline high 160-189 mg/dL, High >189 mg/dL, Very high Secondary prevention optimal LDL Cholesterol levels are recommended to be < 70 mg/dL Performed By: #### 3 016-3, 79971-5, 25243-1, 7 ####[facility] [id number] [place] [address] [place] Cholesterol in LDL/Cholesterol in HDL [Mass ratio] 3.18 {ratio} High <2.54 [facility] Comment on above: Order Comment: Speci men Type: BLOOD SPECIMENOrdering Facility: [facility] Address: [address] [place] [address] Result Comment: Refe rence: 1. National Cholesterol Education Program ATP III Guideline At-A-Glance Quick Desk Reference: National Heart, Lung, and Blood [place]. National Institutes of Health. 2001: NIH Publication No. 01-3305. 2. An International Atherosclerosis Society position paper: global recommendations for the management of dyslipidemia: executive summary, Atherosclerosis. 2014: 232(2):410-413. Performed By: #### 3 016-3, 32565-3, 60251-7, 3024-01 ####[facility] [id number] [place] [address] [place] Cholesterol in VLDL [Mass/Vol] 58 mg/dL High <30 [facility] Comment on above: Order Comment: Speci men Type: BLOOD SPECIMENOrdering Facility: [facility] Address: [address] [place] [address] Performed By: #### 3 016-3, 64292-2, 29337-7, 3024-01 ####[facility] [id number] [address] [address] [place] Cholesterol non HDL [Mass/Vol] 147 mg/dL High <130 [facility] Comment on above: Order Comment: Speci men Type: BLOOD SPECIMENOrdering Facility: [facility] Address: [address] [place] [address] Result Comment: <130 mg/dL, Optimal 130-159 mg/dL, Near optimal/above optimal 160-189 mg/dL, Borderline high 190-219 mg/dL, High >219 mg/dL, Very high Secondary prevention optimal non HDL Cholesterol levels are recommended to be <100 mg/dL Performed By: #### 3 016-3, 10113-6, 30547-8, 3024-7 ####[facility] [id number] [place] [address] [place] Cholesterol.total/Chol esterol in HDL [Mass ratio] 6.25 {ratio} High <5.10 [facility] Comment on above: Order Comment: Speci men Type: BLOOD SPECIMENOrdering Facility: [facility] Address: [address] [place] [address] Performed By: #### 3 016-3, 90783-6, 80588-4, 302-7 ####[facility] [id number] [place] [address] [place] FASTING TIME 12 hrs Normal [facility] Comment on above: Order Comment: Speci men Type: BLOOD SPECIMENOrdering Facility: [facility] Address: [address] [place] [address] Performed By: #### 3 016-3, 12113-4, 89238-0, 3024-7 ####[facility] [id number] [place] [id number] [place] Triglyceride [Mass/Vol] 288 mg/dL High <150 [facility] Comment on above: Order Comment: Speci men Type: BLOOD SPECIMENOrdering Facility: [facility] Address: [address] [place] [address] Result Comment: <150 mg/dL, Normal 150-199 mg/dL, Borderline high 200-499 mg/dL, High >499 mg/dL, Very high Performed By: #### 3 016-3, 87809-5, 03283-9, 3024-7 ####[facility] [id number] [place] [address] [place] T4 Free SerPl-mCncon 024 Free T4 [Mass/Vol] 1.2 ng/dL Normal 0.9-1.7 [facility] Comment on above: Order Comment: Speci men Type: BLOOD SPECIMENOrdering Facility: [facility] Address: [address] [place] [address] Performed By: #### 3 016-3, 41952-4, 51059-5, 30247 ####[facility] [id number] [place] [address] [place] TSH SerPl-aCncon 07-25-2024 TSH Qn 4.570 m[IU]/L High 0.270-4.200 [facility] Comment on above: Order Comment: Speci men Type: BLOOD SPECIMENOrdering Facility: [facility] Address: [address] [place] [address] Performed By: #### 3 016-3, 03957-7, 37846-0, 3027 ####[facility] [id number] [address] [place] CNOVon 07-07-2024 CNOV Office Visit (KIERAN ) -- TRESA MUÑOZ ([id number]) 1970 M Date Time Provider Department 07/07/24 8:20 AM BOBBI HART During your visit today, we recorded the following information about you: Pulse Respiration Blood pressure Weight 80/minute 16/minute 116/82 92.5 kg Bobbi Hart APRN.[employer]UIT [employer]UT FARMWORKER 07/08/2024 8:18 AM Signed This is a [...] Diabetes mellitus type 2, controlled, without complications ([facility]) 01/02/2023 GERD (gastroesophageal reflux disease) Obstructive sleep [...] 13/9 cmH2O with BUR 12 bpm DME [facility] gabapentin (NEURONTIN) 300 mg capsule Take [...] canals wild (more content not included)... Normal [facility] CNPNon 05-27-2024 LAILA Telephone (JOEL) -- TRESA MUÑOZ ([id number]) 1970 M Date Time Provider Department 05/27/24 EDOUARD RAMIRES JR During your visit today, we recorded the following information about you: Deisy Groves LPN 05/27/2024 1:00 PM Signed Pt and calling for results of sleep titration done at [facility] on 05/08. Results scanned into [employer]. Please review and advise. Scan on 05/08/2024 [...] the order and all related documents to [facility]. He will need a 31-90 day compliance follow up appointment. Jh Cowan APRN.Cristina Waller LPN 05/27/2024 4:33 PM Signed Called spouse advised of message below from Raphael Cowan, verbalized understanding. Advised orders were sent to [facility]. Spouse stated patient needs refill of [...] (restless legs syndrome) [G25.81] Order(s):PAP THERAPY ORDER [[id number]] Order #: [id number]: 1 Prescriptions as of 10/13/2024 - CPAP/BIPAP/OTHER biPAP ST 16/11 cmH2O with BUR 12 DME [facility] - metFORMIN ER (GLUCOPHAGE XR) 500 [...] 13/9 cmH2O with BUR 12 bpm DME [facility] GABAPENTIN 300 MG CAPSULE 30 c* [...] 04-25-2024 LAILA Telephone (SUKHJINDERWST) -- TRESA MUÑOZ ([id number]) 1970 M Date Time Provider Department 04/25/24 JH COWAN During your visit today, we recorded the following information about you: Patti Drew, RN 04/25/2024 3:44 PM Signed Sandie [facility] called in and reports she needs Pt las OV note from Jh Cowan DIABETES EDUCATION COORDINATOR and order for titration study. She reports they will do it no charge, they just need it sent over for either the titration for Bipap or ASV. Faxed to # [phone]. Allergies As of Date: 04/25/2024 Noted Allergy [...] Office Visit (SLEWST ) -- TRESA MUÑOZ ([id number]) 1970 M Date Time Provider Department 04/18/24 8:00 AM JH COWAN During your visit today, we recorded the following information about you: Pulse Respiration Blood pressure Weight 86/minute 14/minute 126/86 92.5 kg Height 1.88 m Jh CowanHARRY.FRUIT OR NUT FARMWORKER 04/18/2024 1:39 PM Signed [facility] Follow up/ Established patient [...] He is requesting titration be performed at [facility]. Order paced. Advised pt not to drive or operate heavy machinery if sleepy. Encouraged continued use of his PAP for now and explained need to clean (not using an ozone radiator cleaner) and replace equipment regularly. 3. RLS [...] PAP titration study which was done at [facility]. Dr Ramires ordered CPAP titration to start [...] accidents due to drowsy drivin 01/14/2024 04/18/2024 [place] Sleepiness Scale Score 9 (No clinically significant [...] lutein-zeaxanthin 25 (more content not included)... Normal [facility] 04-16-2024 [facility] Telephone (JOEL) -- TRESA MUÑOZ ([id number]) 1970 M Date Time Provider Department 04/16/24 EDOUARD RAMIRES JR During your visit today, we recorded the following information about you: Luis Felipe Rosa RN 04/16/2024 9:22 AM Signed reports patient had a sleep study done in December, and has still not heard back from Dr. Ramires, about the results. [facility] and informed provider waiting on reply from [facility]. reports they were not aware patient was [...] Pended. Please advise and phone with reply: [phone] Edouard Ramires Jr., MD 04/16/2024 2:41 PM Signed Pt's AHI was not normalized during sleep study. The study was not run as requested. Specifically: Pt with prior study at [facility] showing CSA, but titration normalized on 11 [...] that may need additional testing. Please inform [facility] of pt information and concerns. Patient should still have follow up with Ema Cowan CNP. MD Camryn Moran Rebecca, APRN.FRUIT OR NUT FARMWORKER 04/16/2024 4:24 PM Signed Gabapentin refilled That's fine to put him in my schedule PDMP website checked and validated. All prescriptions have been APPROPRIATELY filled. No suspicious activity was identified. 04/16/2024 by Jh Cowan APRN.FRUIT OR NUT FARMWORKER Allergies As of Date: 04/16/2024 Noted Allergy Reaction AMOXIL (AMOXICILLIN) 11/16/2014 2 - Rash ANIMAL DANDER 03/06/2012 5 - Intolerance Comments: nasal congestion KETOCONAZOLE 01/02/2023 2 - Rash Comments: blisters Date Reviewed: 01/14/2024 Reviewed by: Edouard Ramires Jr., MD - Fully Assessed Reason for Visit: Patient Question [1593] Visit Diagnosis:RLS (restless legs syndrome) [G25.81] Order(s):gabapentin [...] 10/19/2010 Tinni (more content not included)... Normal [facility] C-REACTIVE PROTEIN (CRP)on 09-03-2022 CRP [Mass/Vol] <0.9 mg/dL [facility] CK CREATINE KINASEon 023 CK [Catalytic activity/Vol] 97 U/L 51 - 298 U/L [facility] ESR Westergren method (Bld) [Velocity]on 07-02-2023 ESR (Bld) [Velocity] 2 mm/h 0 - 15 mm/hr [facility] Urinalysis complete panel (U )on 07-02-2023 Bacteria LM.HPF (Urine sed) [#/Area] Negative Negative /HPF [facility] Bilirubin Ql (U) Negative Negative [facility] Clarity (Unsp spec) Clear Clear [facility] Color (U) Yellow Yellow [facility] Epithelial cells LM.HPF (Urine sed) [#/Area] None Seen [facility] Glucose Test strip (U) [Mass/Vol] Trace Abnormal Negative [facility] Hemoglobin Ql (U) Negative Negative [facility] Hyaline casts (Urine sed) [#/Area] 0 /[LPF] 0 /LPF [facility] Ketones Ql (U) Negative Negative [facility] Leukocyte esterase Test strip Ql (U) Negative Negative [facility] Nitrite Ql (U) Negative Negative [facility] pH (U) 6.0 [pH] <8.5 [facility] Protein (U) [Mass/Vol] Negative Negative [facility] RBC LM.HPF (Urine sed) [#/Area] 0-2 /HPF 0-2 /HPF [facility] Specific gravity (U) [Rel density] 1.025 1.005 - 1.030 [facility] Urobilinogen Ql (U) 0.2 EU/dL 0.2-1.0 EU/dL [facility] WBC LM.HPF (Urine sed) [#/Area] 0-5 /HPF 0-5 /HPF [facility] Vital Signs Date Time Vital Sign Value Performing Clinician Nickolasi sung 01-22-2025 01:00-0400 Diastolic blood pressure 93 mm[Hg] Dr. Edouard Noland MD Work Phone: [facility] 01-22-2025 01:00-0400 Heart rate 88 /min Dr. Edouard Noland MD Work Phone: [facility] 01-22-2025 01:00-0400 Respiratory rate 14 /min Dr. Edouard Noland MD Work Phone: [facility] 01-22-2025 01:00-0400 SaO2% (BldA) [Mass fraction] 97 % Dr. Edouard Noland MD Work Phone: [facility] 01-22-2025 01:00-0400 Systolic blood pressure 141 mm[Hg] Dr. Edouard Noland MD Work Phone: [facility] 01-21-2025 22:19-0400 Body height 187.[address] Edouard Noland MD Work Phone: [facility] 01-21-2025 22:19-0400 Body mass index (BMI) [Ratio] 25.1 kg/m2 Dr. Edouard Noland MD Work Phone: [facility] 01-21-2025 22:19-0400 Body temperature 98.6 [degF] Dr. Edouard Noland MD Work Phone: [facility] 01-21-2025 22:19-0400 Body weight 88.[address] Edouard Noland MD Work Phone: [facility] 01-12-2025 10:41-0400 Body mass index (BMI) [Ratio] 25.29 kg/m2 Edouard Noland MD Work Phone: [facility] 01-12-2025 10:41-0400 Body weight 89.36 kg Edouard Noland MD Work Phone: [facility] 01-12-2025 10:41-0400 Diastolic blood pressure 82 mm[Hg] Edouard Noland MD Work Phone: [facility] 01-12-2025 10:41-0400 Heart rate 96 /min Edouard Noland MD Work Phone: [facility] 01-12-2025 10:41-0400 SaO2% (BldA) [Mass fraction] 97 % Edouard Noland MD Work Phone: [facility] 01-12-2025 10:41-0400 Systolic blood pressure 122 mm[Hg] Edouard Noland MD Work Phone: [facility] 09-01-2024 11:05-0500 Body mass index (BMI) [Ratio] 26.47 kg/m2 Jh Camryn STORE PERSON.FRUIT OR NUT FARMWORKER Work Phone: [facility] 09-01-2024 11:05-0500 Body weight 93.53 kg Jh Camryn STORE PERSON.FRUIT OR NUT FARMWORKER Work Phone: [facility] 09-01-2024 11:05-0500 Diastolic blood pressure 83 mm[Hg] Jh Camryn STORE PERSON.FRUIT OR NUT FARMWORKER Work Phone: [facility] 09-01-2024 11:05-0500 Heart rate 83 /min Jh Camryn STORE PERSON.FRUIT OR NUT FARMWORKER Work Phone: [facility] 09-01-2024 11:05-0500 Respiratory rate 18 /min Jh Camryn STORE PERSON.FRUIT OR NUT FARMWORKER Work Phone: [facility] 09-01-2024 11:05-0500 SaO2% (BldA) [Mass fraction] 98 % Jh Camryn STORE PERSON.FRUIT OR NUT FARMWORKER Work Phone: [facility] 09-01-2024 11:05-0500 Systolic blood pressure 122 mm[Hg] Jh Camryn STORE PERSON.FRUIT OR NUT FARMWORKER Work Phone: [facility] 07-07-2024 08:27-0500 Body mass index (BMI) [Ratio] 26.19 kg/m2 Bobbi Haagen STORE PERSON.FRUIT OR NUT FARMWORKER Work Phone: [facility] 07-07-2024 08:27-0500 Body weight 92.53 kg Bobbi Haagen STORE PERSON.FRUIT OR NUT FARMWORKER Work Phone: [facility] 07-07-2024 08:27-0500 Diastolic blood pressure 82 mm[Hg] Bobbi Haagen STORE PERSON.FRUIT OR NUT FARMWORKER Work Phone: [facility] 07-07-2024 08:27-0500 Heart rate 80 /min Bobbi Haagen STORE PERSON.FRUIT OR NUT FARMWORKER Work Phone: [facility] 07-07-2024 08:27-0500 Respiratory rate 16 /min Bobbi Haagen STORE PERSON.FRUIT OR NUT FARMWORKER Work Phone: [facility] 07-07-2024 08:27-0500 SaO2% (BldA) [Mass fraction] 98 % Bobbi Hart STORE PERSON.FRUIT OR NUT FARMWORKER Work Phone: [facility] 07-07-2024 08:27-0500 Systolic blood pressure 116 mm[Hg] Bobbi Hart STORE PERSON.FRUIT OR NUT FARMWORKER Work Phone: [facility] 04-18-2024 08:07-0400 Body height 188 cm Jh Camryn STORE PERSON.FRUIT OR NUT FARMWORKER Work Phone: [facility] 04-18-2024 08:07-0400 Body mass index (BMI) [Ratio] 26.18 kg/m2 Jh Camryn STORE PERSON.FRUIT OR NUT FARMWORKER Work Phone: [facility] 04-18-2024 08:07-0400 Body weight 92.5 kg Jh Camryn STORE PERSON.FRUIT OR NUT FARMWORKER Work Phone: [facility] 04-18-2024 08:07-0400 Diastolic blood pressure 86 mm[Hg] Jh Camryn STORE PERSON.FRUIT OR NUT FARMWORKER Work Phone: [facility] 04-18-2024 08:07-0400 Heart rate 86 /min Jh Camryn STORE PERSON.FRUIT OR NUT FARMWORKER Work Phone: [facility] 04-18-2024 08:07-0400 Respiratory rate 14 /min Jh Camryn STORE PERSON.FRUIT OR NUT FARMWORKER Work Phone: [facility] 04-18-2024 08:07-0400 SaO2% (BldA) [Mass fraction] 96 % Jh Camryn STORE PERSON.FRUIT OR NUT FARMWORKER Work Phone: [facility] 04-18-2024 08:07-0400 Systolic blood pressure 126 mm[Hg] Jh Camryn STORE PERSON.FRUIT OR NUT FARMWORKER Work Phone: [facility] 01-14-2024 09:29-0400 Body mass index (BMI) [Ratio] 25.94 kg/m2 Edouard Ramires Jr., MD Work Phone: [facility] 01-14-2024 09:29-0400 Body weight 91.63 kg Edouard Ramires Jr., MD Work Phone: [facility] 01-14-2024 09:29-0400 Diastolic blood pressure 72 mm[Hg] Edouard Ramires Jr., MD Work Phone: [facility] 01-14-2024 09:29-0400 Heart rate 83 /min Edouard Ramires Jr., MD Work Phone: [facility] 01-14-2024 09:29-0400 Respiratory rate 16 /min Edouard Ramires Jr., MD Work Phone: [facility] 01-14-2024 09:29-0400 SaO2% (BldA) [Mass fraction] 97 % Edouard Ramires Jr., MD Work Phone: [facility] 01-14-2024 09:29-0400 Systolic blood pressure 128 mm[Hg] Edouard Ramires Jr., MD Work Phone: [facility] 01-04-2024 13:05-0400 Body mass index (BMI) [Ratio] 26.19 kg/m2 Bobbi Hart STORE PERSON.FRUIT OR NUT FARMWORKER Work Phone: [facility] 01-04-2024 13:05-0400 Body weight 92.53 kg Bobbi Hashonna STORE PERSON.FRUIT OR NUT FARMWORKER Work Phone: [facility] 01-04-2024 13:05-0400 Diastolic blood pressure 78 mm[Hg] Bobbi Haagen STORE PERSON.FRUIT OR NUT FARMWORKER Work Phone: [facility] 01-04-2024 13:05-0400 Heart rate 83 /min Bobbi Haagen STORE PERSON.FRUIT OR NUT FARMWORKER Work Phone: [facility] 01-04-2024 13:05-0400 Respiratory rate 16 /min Bobbi Haagen STORE PERSON.FRUIT OR NUT FARMWORKER Work Phone: [facility] 01-04-2024 13:05-0400 SaO2% (BldA) [Mass fraction] 98 % Bobbi Hart STORE PERSON.FRUIT OR NUT FARMWORKER Work Phone: [facility] 01-04-2024 13:05-0400 Systolic blood pressure 122 mm[Hg] Bobbi Haagen STORE PERSON.FRUIT OR NUT FARMWORKER Work Phone: [facility] 11-01-2023 08:59-0400 Body temperature 97 [degF] NA Jordan PA-C Work Phone: [facility] 11-01-2023 08:59-0400 Body weight 95.62 kg NA Jordan PA-C Work Phone: [facility] 11-01-2023 08:59-0400 Diastolic blood pressure 78 mm[Hg] NA Jordan PA-C Work Phone: [facility] 11-01-2023 08:59-0400 Heart rate 86 /min NA Jordan PA-C Work Phone: [facility] 11-01-2023 08:59-0400 Respiratory rate 16 /min NA Jordan PA-C Work Phone: [facility] 11-01-2023 08:59-0400 SaO2% (BldA) [Mass fraction] 97 % NA Jordan PA-C Work Phone: [facility] 11-01-2023 08:59-0400 Systolic blood pressure 114 mm[Hg] NA Jordan PA-C Work Phone: [facility] 07-02-2023 11:51-0500 Body weight 96.62 kg Bobbi Haagen STORE PERSON.FRUIT OR NUT FARMWORKER Work Phone: [facility] 07-02-2023 11:51-0500 Diastolic blood pressure 82 mm[Hg] Bobbi Haagen STORE PERSON.FRUIT OR NUT FARMWORKER Work Phone: [facility] 07-02-2023 11:51-0500 Heart rate 88 /min Bobbi Haagen STORE PERSON.FRUIT OR NUT FARMWORKER Work Phone: [facility] 07-02-2023 11:51-0500 Respiratory rate 16 /min Bobbi Haagen STORE PERSON.FRUIT OR NUT FARMWORKER Work Phone: [facility] 07-02-2023 11:51-0500 SaO2% (BldA) [Mass fraction] 97 % Bobbi Haagen STORE PERSON.FRUIT OR NUT FARMWORKER Work Phone: [facility] 07-02-2023 11:51-0500 Systolic blood pressure 124 mm[Hg] Bobbi Hart STORE PERSON.FRUIT OR NUT FARMWORKER Work Phone: [facility] 01-02-2023 13:09-0400 Diastolic blood pressure 90 mm[Hg] Edouard Noland MD Work Phone: [facility] 01-02-2023 13:09-0400 Systolic blood pressure 140 mm[Hg] Edouard Noland MD Work Phone: [facility] 01-02-2023 12:51-0400 Body height 188.2 cm Edouard Noland MD Work Phone: [facility] 01-02-2023 12:51-0400 Body weight 93.44 kg Edouard Noland MD Work Phone: [facility] 01-02-2023 12:51-0400 Heart rate 90 /min Edouard Noland MD Work Phone: [facility] 01-02-2023 12:51-0400 Respiratory rate 16 /min Edouard Noladn MD Work Phone: [facility] 01-02-2023 12:51-0400 SaO2% (BldA) [Mass fraction] 97 % Edouard Noland MD Work Phone: [facility] Encounters Encounter Date Encounter Type Care Provider Facility Start: 02-25-2025 End: 02-25-2025 Telephone encounter Edouard Noland MD Work Phone: [facility] Comment on above: Patient Update Start: 02-23-2025 ambulatory EDOUARD NOLAND Facility :[facility] Start: 02-23-2025 End: 02-23-2025 Subsequent hospital visit by physician Maik [facility] Work Phone: Radiology Comment on above: Bacterial pneumonia [J15.9] Start: 02-16-2025 End: 02-16-2025 E-mail encounter from caregiver Noble Lawson [facility] Work Phone: [facility] Start: 02-16-2025 End: 02-16-2025 Patient encounter procedure Noble Lawson [facility] Work Phone: [facility] Comment on above: Trulicity Start: 02-11-2025 End: 02-12-2025 Follow-up encounter Edouard Noland MD Work Phone: [facility] Start: 02-10-2025 End: 02-10-2025 ambulatory EDOUARD NOLAND Facility:[facility] Start: 02-03-2025 ambulatory EDOUARD NOLAND Facility :[id number] Start: 02-03-2025 End: 02-03-2025 Subsequent hospital visit by physician [facility] Work Phone: [facility] Comment on above: Osteopenia of multip le sites [M85.89] Start: 02-02-2025 End: 02-02-2025 Telephone encounter Edouard Noland MD Work Phone: Family [facility] Comment on above: Patient Question Start: 01-28-2025 End: 01-28-2025 ambulatory Edouard Noland MD Work Phone: Family [facility] Comment on above: Kayce 3 sensor Start: 01-28-2025 End: 02-03-2025 Telephone encounter Edouard Noland MD Work Phone: [facility] Comment on above: Results Start: 01-22-2025 End: 01-23-2025 Follow-up encounter Adrienne Castro APRN.FRUIT OR NUT FARMWORKER Work Phone: [facility] Start: 01-21-2025 End: 01-22-2025 Emergency department patient visit Dr. Edouard Noland MD Work Phone: -Emergency Department Work Phone: Start: 01-21-2025 End: 01-21-2025 ambulatory EDOUARD NOLAND Facility:[facility] Start: 01-21-2025 End: 01-21-2025 Patient encounter procedure Noble Lawson [facility] Work Phone: [facility] Comment on above: Controlled type 2 di abetes mellitus without complication, without long-term current use of insulin (HCC) (Primary Dx) Start: 01-21-2025 End: 01-21-2025 Telemedicine consultation with patient Noble Lawson [facility] Work Phone: [facility] Start: 01-19-2025 ambulatory EDOUARD NOLAND Facility :[facility] Start: 01-19-2025 End: 01-19-2025 Subsequent hospital visit by physician [facility] Work Phone: Radiology Comment [...] Start: 01-13-2025 End: 01-13-2025 ambulatory EDOUARD NOLAND Facility:[facility] Start: 01-12-2025 End: 01-12-2025 Patient encounter [...] Start: 10-06-2024 End: 10-06-2024 ambulatory EDOUARD NOLAND Facility:[facility] Start: 10-06-2024 End: 10-06-2024 Patient encounter procedure Noble Lawson [facility] Work Phone: [facility] Comment on above: Controlled type 2 di abetes mellitus without complication, without long-term current use of insulin (HCC) (Primary Dx) Start: 10-06-2024 End: 10-06-2024 Telemedicine consultation with patient Noble Lawson [facility] Work Phone: [facility] Start: 09-20-2024 End: 09-22-2024 Refill Edouard Noland MD Work Phone: [facility] Comment on above: Refill Request Start: 09-01-2024 End: 09-01-2024 Patient encounter procedure Jh Cowan APRN.[employer]UIT OR [employer] FARMWORKER Work Phone: Neurology Comment on above: Central sleep apnea (Primary Dx); MIKHAIL (obstructive sleep apnea); Uses bilevel positive airway pressure (BPAP) ventilation at home; RLS (restless legs syndrome); PLMD (periodic limb movement disorder) Start: 09-01-2024 End: 09-01-2024 [facility] Start: 08-13-2024 End: 08-13-2024 ambulatory [facility] Facility:[facility] Start: 08-11-2024 End: 08-11-2024 ambulatory [facility] Facility:[facility] Start: 07-29-2024 End: 07-31-2024 Telephone encounter Bobbi Hart APRN.CNP Work Phone: [facility] Comment on above: Results Start: 07-25-2024 End: 07-25-2024 [facility] Facility:[facility] Start: 07-07-2024 End: 07-07-2024 Office outpatient visit 25 minutes Bobbi Hart APRN.FRUIT OR N[employer] FARMWORKER Work Phone: [facility] Comment on above: Controlled type 2 di abetes mellitus without complication, without long-term current use of insulin (HCC) (Primary Dx); Vitamin D deficiency; Hypertriglyceridemia; Borderline abnormal thyroid function test; Screening for lipid disorders Start: 07-07-2024 End: 07-07-2024 ambulatory [facility] Facility:[facility] Start: 05-27-2024 End: 10-13-2024 Telephone encounter Edouard Ramires MD Work Phone: Neurology Comment on above: Results Start: 05-08-2024 End: 05-08-2024 ambulatory Jh Cowan NP Facility:[facility] Start: 04-25-2024 End: 04-25-2024 Telephone encounter Jh Cowan APRN.FRUIT OR N[employer] FARMWORKER Work Phone: Neurology Comment on above: Fax last OV note and Sleep Study Order Start: 04-21-2024 End: 04-21-2024 ambulatory EDOUARD NOLAND Facility:[facility] Start: 04-21-2024 End: 04-21-2024 Patient encounter procedure Noble Lawson [facility] Work Phone: [facility] Comment on above: Controlled type 2 di abetes mellitus without complication, without long-term current use of insulin (HCC) (Primary Dx) Start: 04-21-2024 End: 04-21-2024 Telemedicine consultation with patient Noble Lawson [facility] Work Phone: [facility] Start: 04-18-2024 End: 04-18-2024 ambulatory JH COWAN Facility:[facility] Start: 04-18-2024 End: 04-18-2024 Patient encounter procedure Jh Cowan APRN.FRUIT OR N[employer] FARMWORKER Work Phone: Neurology Comment on above: Central sleep apnea (Primary Dx); MIKHAIL (obstructive sleep apnea) Start: 04-16-2024 End: 04-18-2024 Telephone encounter Edouard Ramires MD Work Phone: Neurology Comment on above: Patient Question Start: 04-10-2024 End: 04-11-2024 ambulatory Edouard Ramires MD Work Phone: Neurology Comment on above: Sleep Study Start: 02-19-2024 Telephone encounter Jh de la rosa APRN.FRUIT OR N[employer] FARMWORKER Work Phone: Neurology Comment on above: Patient Question/tit ration study Start: 02-09-2024 End: 02-09-2024 ambulatory Edouard Ramires Facility:[facility] Start: 01-16-2024 End: 01-16-2024 [facility] Comment on above: Controlled type 2 di abetes mellitus without complication, without long-term current use of insulin (HCC) (Primary Dx) Start: 01-16-2024 End: 01-16-2024 Telemedicine consultation with patient Noble Lawson [facility] Work Phone: [facility] Start: 01-14-2024 [...] 25 minutes Bobbi Hart APRN.CNP Work Phone: [facility] Comment on above: Controlled type 2 di abetes mellitus without complication, without long-term current use of insulin (HCC) (Primary Dx); Muscle cramps; Weakness of lower extremity, unspecified laterality; Vitamin D deficiency; Borderline abnormal thyroid function test; Elevated blood pressure reading without diagnosis of hypertension Start: 11-12-2023 ambulatory Luis Felipe galarza PA-C Work Phone: [facility] Comment on above: Rash, spots Start: 11-01-2023 End: 11-01-2023 Patient encounter procedure Luis Felipe Jordan PA-C Work Phone: [facility] Comment on above: Tinea corporis (Prim colby Dx) Start: 10-30-2023 Telephone encounter Edouard Noland MD Work Phone: [facility] Comment on above: need rx for CPAP ite ms Start: 10-22-2023 End: 10-22-2023 ambulatory Noble Lawson [facility] Work Phone: [facility] Comment on above: Controlled type 2 di abetes mellitus without complication, without long-term current use of insulin (HCC) (Primary Dx) Start: 10-22-2023 End: 10-22-2023 Telemedicine consultation with patient Noble Lawson [facility] Work Phone: [facility] Start: 09-10-2023 End: 09-10-2023 ambulatory Noble Lawson [facility] Work Phone: [facility] Comment on above: Controlled type 2 di abetes mellitus without complication, without long-term current use of insulin (HCC) (Primary Dx) Start: 09-10-2023 End: 09-10-2023 Telemedicine consultation with patient Noble Lawson [facility] Work Phone: [facility] Start: 09-06-2023 Refill Edouard Noland MD Work Phone: [facility] Comment on above: Refill Request Start: 07-02-2023 End: 07-02-2023 Office outpatient visit 25 minutes Bobbi Hart APRN.[facility] Work Phone: [facility] Comment on above: Controlled type 2 di abetes mellitus without complication, without long-term current use of insulin (HCC) (Primary Dx); MIKHAIL (obstructive sleep apnea); Muscle weakness; Hypertriglyceridemia; Borderline abnormal thyroid function test Start: 06-19-2023 ambulatory Shane Rand [facility] Work Phone: [facility] Comment on above: Metformin Start: 06-19-2023 Telephone encounter Shane Rand [facility] Work Phone: [facility] Comment on above: Patient Question Start: 02-05-2023 End: 02-05-2023 ambulatory Shane Rand [facility] Work Phone: [facility] Comment on above: Controlled type 2 di abetes mellitus without complication, without long-term current use of insulin (HCC) (Primary Dx) Start: 02-05-2023 End: 02-05-2023 Telemedicine consultation with patient Shane Rand [facility] Work Phone: [facility] Start: 01-16-2023 Telephone encounter Edouard Noland MD Work Phone: [facility] Comment on above: Patient Question; Or ders Start: 01-08-2023 End: 01-08-2023 ambulatory Shane Rand [facility] Work Phone: [facility] Comment on above: Controlled type 2 di abetes mellitus without complication, without long-term current use of insulin (HCC) (Primary Dx); Medication management Start: 01-08-2023 End: 01-08-2023 Telemedicine consultation with patient Shane Rand [facility] Work Phone: [facility] Start: 01-02-2023 End: 01-02-2023 Patient encounter procedure Edouard Noland MD Work Phone: [facility] Comment on above: Well adult exam (Lise [...] encounter Edouard Noland MD Work Phone: Family [facility] Procedures Date Procedure Procedure Detail Performing Clinician Start: 01-21-2025 End: 01-21-2025 Plain chest X-ray Dr. Edouard Noland MD Work Phone: Start: 01-21-[address] Edouard Noland MD Work Phone: Start: 01-12-2025 Adult depression scr eening assessment Edouard Noland MD Work Phone: Start: 03-19-2023 Colonoscopy Edouard Cho MD Work Phone: Plan of Treatment Date Care Activity Detail Author Start: 03-19-2033 Colonoscopy Colonoscopy [facility] Start: 03-19-2033 Colorectal Cancer Screening Colorectal Cancer Screening [facility] Start: 03-19-2033 Screening for malignant neoplasm of colon [facility] Start: 01-02-2033 Urine microalbumin profile [facility] Start: 12-08-2027 LIPID SCREEN LIPID SCREEN [facility] Start: 01-12-2026 Annual PCP Team Chronic Disease Visit Annual PCP Team Chronic Disease Visit [facility] Start: 01-12-2026 Anxiety Screening Anxiety Screening [facility] Start: 01-12-2026 Depression Screening Depression Screening [facility] Start: 01-12-2026 Diabetic foot examination Diabetic Foot Exam [facility] Start: 01-12-2026 Hepatitis B screening Urine Albumin:Creatinine Ratio [facility] Start: 01-12-2026 Pneumococcal Vaccine: 50+ (1 of 2 - PCV) Pneumococcal Vaccine: 50+ (1 of 2 - PCV) [facility] Comment on above: Postponed from 1991 (Declined at t his time) Start: 01-12-2026 Shingrix Vaccine (1 of 2) Shingrix Vaccine (1 of 2) [facility] Comment on above: Postponed from 2022 (Declined at t his time) Start: 12-07-2025 DIABETES SCREEN DIABETES SCREEN [facility] Start: 07-25-2025 Hepatitis B surface antibody level LDL Cholesterol [facility] Start: 07-14-2025 End: 10-13-2025 Hemoglobin A1c in Blood HEMOGLOBIN A1C Lab Routine Controlled type 2 diabetes mellitus without complication, without long-term current use of insulin (HCC) Expected: 07/14/2025, Expires: 10/13/2025 [facility] Comment on above: Expected: 07/14/2025, Expires: Start: 07-14-2025 Hemoglobin A1c measurement HbA1C [facility] Start: 07-14-2025 End: 07-14-2025 ambulatory 07/14/2025 9:30 AM EST Results Only [place] Camacho [facility] [address] [place] [address] Ashia Novawn [facility] Start: 07-07-2025 Annual PCP Team Chronic Disease Visit Annual PCP Team Chronic Disease Visit [facility] Start: 07-07-2025 Anxiety Screening Anxiety Screening [facility] Comment on above: Postponed from 1990 (Declined at t his time) Start: 07-07-2025 Covid-19 Vaccine ( season) Covid-19 Vaccine ( season) [facility] Comment on above: Postponed from 03/30/2024 (Declined at t his time) Start: 07-07-2025 Hepatitis B Vaccine (1 of 3 - 19+ 3-dose series) Hepatitis B Vaccine (1 of 3 - 19+ 3-dose series) [facility] Comment on above: Postponed from 1991 (Declined at t his time) Start: 07-07-2025 Hepatitis C screening Hepatitis C Screening [facility] Comment on above: Postponed from 1990 (Declined at t his time) Start: 07-07-2025 HIV screening HIV Screening [facility] Comment on above: Postponed from 1990 (Declined at t his time) Start: 07-07-2025 Pneumococcal vaccination Pneumococcal Vaccine (1 of 2 - PCV) [facility] Comment on above: Postponed from 1978 (Declined at t his time) Start: 06-05-2025 End: 06-05-2025 Patient encounter procedure 06/05/2025 10:20 AM EST Office Visit Neurology [address] [place] [address] Edouard Ramires Jr., MD [address] [place] [address] 6 month follow up Neurology Comment on above: 6 month follow up Start: 03-30-2025 Influenza vaccination [facility] Start: 03-20-2025 End: 03-20-2025 Patient encounter procedure 03/20/2025 8:00 AM EDT Office Visit Endocrinology [address] [address] Millicent Ellis MD [address] [place] [address] Poisoning by vitamin D, undetermined intent, initial encounter [T45.2X4A] Endocrinology Comment on above: Poisoning by vitamin D, undetermined int ent, initial encounter [T45.2X4A] Start: 03-09-2025 End: 03-09-2025 Patient encounter procedure [facility] [place] Comment on above: 8 wk follow up 8 wk follow up (40mi n per [facility]) Start: 03-06-2025 End: 03-06-2025 Patient encounter procedure 03/06/2025 10:20 AM EDT Office Visit Neurology [address] [place] [address] Edouard Ramires Jr., MD [address] [place] [address] 6 month follow up Neurology Comment on above: 6 month follow up Start: 02-27-2025 End: 02-27-2025 Patient encounter procedure 02/27/2025 11:00 AM EDT Office Visit Family Medicine [place] [address] [facility] [address] Edouard Noland MD [address] [place] [address] Hospital follow up Pneumonia [facility] Comment on above: Hospital follow up Pneumonia Start: 02-11-2025 End: 02-11-2026 Basic metabolic 2000 panel - Serum or Plasma BASIC METABOLIC PANEL Lab Routine Renal insufficiency Expected: 02/11/2025, Expires: 02/11/2026 [facility] Comment on above: Expected: 02/11/2025, Expires: 6 Start: 02-11-2025 End: 05-13-2025 CBC W Ordered Manual Differential panel - Blood PATHOLOGIST INTERPRETATION WITH CBC AND DIFF Lab Routine Renal insufficiency Hypercalcemia Expected: 02/11/2025, Expires: 05/13/2025 [facility] Comment on above: Expected: 02/11/2025, Expires: Start: 02-11-2025 End: 05-13-2025 Lactate dehydrogenase [Enzymatic activity/volume] in Serum or Plasma LACTATE DEHYDROGENASE Lab Routine Renal insufficiency Hypercalcemia Expected: 02/11/2025, Expires: 05/13/2025 [facility] Comment on above: Expected: 02/11/2025, Expires: 5 Start: 02-11-2025 End: 05-13-2025 PROTEIN ELECTROPHORESIS SERUM W/INTERP PROTEIN ELECTROPHORESIS SERUM W/INTERP Lab Routine Renal insufficiency Hypercalcemia Expected: 02/11/2025, Expires: 05/13/2025 [facility] Comment on above: Expected: 02/11/2025, Expires: Start: 02-11-2025 End: 05-13-2025 Urinalysis complete panel - Urine URINALYSIS, WITH MICROSCOPIC Lab Routine Renal insufficiency Expected: 02/11/2025, Expires: 05/13/2025 [facility] Comment on above: Expected: 02/11/2025, Expires: Start: 02-03-2025 End: 02-03-2025 Patient encounter procedure 02/03/2025 11:00 AM EDT Appointment [facility] [address] [place] [id number] Osteopenia of multiple sites [M85.89] [facility] Comment on above: Osteopenia of multiple sites [M85.89] Start: 01-28-2025 End: 04-29-2025 25-hydroxyvitamin D3 [Mass/volume] in Serum or Plasma VITAMIN D 25 HYDROXY Lab Routine Hypercalcemia Expected: 01/28/2025, Expires: 04/29/2025 [facility] Comment on above: Expected: 01/28/2025, Expires: Start: 01-28-2025 End: 04-29-2025 Basic metabolic 2000 panel - Serum or Plasma BASIC METABOLIC PANEL Lab Routine Hypercalcemia Expected: 01/28/2025, Expires: 04/29/2025 [facility] Comment on above: Expected: 01/28/2025, Expires: Start: 01-28-2025 End: 04-29-2025 Calcitriol [Mass/volume] in Serum or Plasma VITAMIN D1 25-DIHYDR Lab Routine Hypercalcemia Expected: 01/28/2025, Expires: 04/29/2025 [facility] Comment on above: Expected: 01/28/2025, Expires: Start: 01-28-2025 End: 04-29-2025 Parathyrin related protein [Moles/volume] in Serum or Plasma PTH RELATED PEPTIDE Lab Routine Hypercalcemia Expected: 01/28/2025, Expires: 04/29/2025 [facility] Work Phone: Comment on above: Expected: 01/28/2025, Expires: Start: 01-26-2025 Influenza vaccination Influenza Vaccine (#1) [place] [facility] oconnell Comment on above: Postponed from 03/30/2024 (Declined at t his time) Start: 01-23-2025 Hemoglobin A1c measurement HbA1C [facility] Start: 01-21-2025 End: 01-21-[address] [facility] Start: 01-21-2025 End: 01-21-2025 Patient encounter procedure 01/21/2025 1:00 PM EDT [facility] [address] [place], [place] [id number] [facility] [address] [place] [phone] DM f/up; CGM review [facility] Comment on above: DM f/up; CGM review Start: 01-13-2025 End: 04-14-2025 ALK PHOS ISOENZYM BL [facility] Comment on above: Expected: 01/13/2025, Expires: Start: 01-13-2025 End: 04-14-2025 Parathyrin related protein [Moles/volume] in Serum or Plasma [facility] Work Phone: Comment on above: Expected: 01/13/2025, Expires: Start: 01-12-2025 End: 04-13-2025 Cobalamin (Vitamin B12) [Mass/volume] in Serum or Plasma [facility] Comment on above: Expected: 01/12/2025, Expires: Start: 01-12-2025 End: 04-13-2025 Comprehensive metabolic 2000 panel - Serum or Plasma [facility] Work Phone: Comment on above: Expected: 01/12/2025, Expires: Start: 01-12-2025 End: 04-13-2025 Folate [Mass/volume] in Serum or Plasma [facility] Comment on above: Expected: 01/12/2025, Expires: Start: 01-12-2025 End: 04-13-2025 Hemoglobin A1c in Blood [facility] Comment on above: Expected: 01/12/2025, Expires: Start: 01-12-2025 End: 04-13-2025 Microalbumin/Creatinine [Mass Ratio] in Urine [facility] Comment on above: Expected: 01/12/2025, Expires: Start: 01-12-2025 End: 04-13-2025 Parathyrin.intact [Mass/volume] in Serum or Plasma [facility] Comment on above: Expected: 01/12/2025, Expires: Start: 01-12-2025 End: 04-13-2025 PROTEIN ELECTROPHORESIS SERUM W/INTERP [facility] Comment on above: Expected: 01/12/2025, Expires: Start: 01-12-2025 End: 04-13-2025 PSA/PROSTATE SPECIFIC ANTIGEN SCREENING [facility] Comment on above: Expected: 01/12/2025, Expires: Start: 01-12-2025 End: 04-13-2025 Testosterone [Mass/volume] in Serum or Plasma [facility] Comment on above: Expected: 01/12/2025, Expires: Start: 01-12-2025 End: 04-13-2025 Thyrotropin [Units/volume] in Serum or Plasma [facility] Comment on above: Expected: 01/12/2025, Expires: Start: 01-12-2025 End: 01-12-2025 Patient encounter procedure 01/12/2025 10:40 AM EDT Office Visit Family Medicine [place] [address] [place] [address] Edouard Noland MD [address] [place] [address] 6 mo f/u [facility] [place] Comment on above: 6 mo f/u Start: 01-08-2025 Hepatitis B screening Urine Albumin:Creatinine Ratio [facility] Start: 01-03-2025 Annual PCP Team Chronic Disease Visit Annual PCP Team Chronic Disease Visit [facility] Start: 01-03-2025 Diabetic foot examination Diabetic Foot Exam [facility] Start: 10-31-2024 Annual PCP Team Chronic Disease Visit Annual PCP Team Chronic Disease Visit [facility] Start: 10-06-2024 End: 10-06-2024 Patient encounter procedure 10/06/2024 1:00 PM EDT [facility] [address] [place] [address] Noble Lawson, [facility] [address] [place] [phone] DM f/up; CGM review [facility] Comment on above: DM f/up; CGM review Start: 07-29-2024 End: 10-28-2024 ALK PHOS ISOENZYM BL ALK PHOS ISOENZYM BL Lab Routine Elevated alkaline phosphatase level Expected: 07/29/2024, Expires: 10/28/2024 [facility] Work Phone: Comment on above: Expected: 07/29/2024, Expires: Start: 07-07-2024 End: 10-06-2024 25-hydroxyvitamin D3 [Mass/volume] in Serum or Plasma VITAMIN D 25 HYDROXY Lab Routine Vitamin D deficiency Expected: 07/07/2024, Expires: 10/06/2024 [facility] Comment on above: Expected: 07/07/2024, Expires: Start: 07-07-2024 End: 10-06-2024 Comprehensive metabolic 2000 panel - Serum or Plasma COMPREHENSIVE METABOLIC PANEL Lab Routine Hypertriglyceridemia Expected: 07/07/2024, Expires: 10/06/2024 [facility] Comment on above: Expected: 07/07/2024, Expires: Start: 07-07-2024 End: 10-06-2024 Hemoglobin A1c in Blood HEMOGLOBIN A1C Lab Routine Controlled type 2 diabetes mellitus without complication, without long-term current use of insulin (HCC) Expected: 07/07/2024, Expires: 10/06/2024 [facility] Comment on above: Expected: 07/07/2024, Expires: Start: 07-07-2024 End: 10-06-2024 Lipid 1996 panel - Serum or Plasma LIPID PANEL BASIC Lab Routine Hypertriglyceridemia Expected: 07/07/2024, Expires: 10/06/2024 [facility] Work Phone: Comment on above: Expected: 07/07/2024, Expires: Start: 07-07-2024 End: 10-06-2024 Thyrotropin [Units/volume] in Serum or Plasma THYROID STIMULATING HORMONE Lab Routine Borderline abnormal thyroid function test Expected: 07/07/2024, Expires: 10/06/2024 [facility] Comment on above: Expected: 07/07/2024, Expires: Start: 07-07-2024 End: 10-06-2024 Thyroxine (T4) free [Mass/volume] in Serum or Plasma T4 FREE/FREE THYROXINE Lab Routine Borderline abnormal thyroid function test Expected: 07/07/2024, Expires: 10/06/2024 [facility] Comment on above: Expected: 07/07/2024, Expires: Start: 07-07-2024 End: 07-07-2024 Patient encounter procedure 07/07/2024 8:20 AM EST Office Visit Family Medicine [place] [address] [facility] [address] Bobbi Hart APRN.[employer] [address] [facility] [place] [address] 6 mo f/u Family Medicine [place] Comment on above: 6 mo f/u Start: 07-04-2024 End: 07-04-2024 Patient encounter procedure 07/04/2024 10:00 AM EST Office Visit Family [place] [address] [place] [address] Edouard Noland MD [address] [facility] [address] 6 mo f/u Family [facility] Comment on above: 6 mo f/u Start: 07-02-2024 Annual PCP Team Chronic Disease Visit Annual PCP Team Chronic Disease Visit [facility] Start: 07-02-2024 Hemoglobin A1c measurement HbA1C [facility] Start: 07-02-2024 Pneumococcal vaccination [facility] Comment on above: Postponed from 1978 (Declined at t his time) Start: 06-26-2024 Hepatitis B surface antibody level LDL Cholesterol [facility] Start: 04-21-2024 End: 04-21-2024 Patient encounter procedure 04/21/2024 11:30 AM EDT [facility] [address] [place] [address] [facility] [address] [place] [phone] DM f/up; CGM review [facility] Comment on above: DM f/up; CGM review Start: 04-16-2024 End: 04-16-2024 Patient encounter procedure 04/16/2024 1:00 PM EDT [facility] [address] [place] [address] [place] [address] [place] [phone] DM f/up; CGM review [facility] Comment on above: DM f/up; CGM review Start: 03-30-2024 Covid-19 Vaccine ( season) Covid-19 Vaccine ( season) [facility] Start: 03-30-2024 Covid-19 Vaccine ( season) Covid-19 Vaccine ( season) [facility] Start: 03-30-2024 Influenza vaccination [facility] Start: 03-21-2024 Glaucoma screening Dilated Retinal Exam [facility] Start: 03-21-2024 Hepatitis C antibody, confirmatory test Dilated Retinal Exam [facility] Start: 01-27-2024 Influenza vaccination Influenza Vaccine (#1) [place] Jessica oconnell Comment on above: Postponed from 03/30/2023 (Declined at t his time) Start: 01-16-2024 End: 01-16-2024 Patient encounter procedure 01/16/2024 1:00 PM EDT [facility] [address] [place] [address] Noble Lawson, [facility] [address] [place] [address] DM f/up; CGM review [facility] Comment on above: DM f/up; CGM review Start: 01-14-2024 End: 01-14-2024 Patient encounter procedure 01/14/2024 9:20 AM EDT Office Visit Neurology [address] [place] [address] Edouard Ramires Jr., MD [address] [phone] MIKHAIL (obstructive sleep apnea) [G47.33 Neurology Comment on above: MIKHAIL (obstructive sleep apnea) [G47.33 Start: 01-04-2024 End: 04-04-2024 25-hydroxyvitamin D3 [Mass/volume] in Serum or Plasma VITAMIN D 25 HYDROXY Lab Routine Vitamin D deficiency Expected: 01/04/2024, Expires: 04/04/2024 [facility] Comment on above: Expected: 01/04/2024, Expires: 4 Start: 01-04-2024 End: 04-04-2024 ALBUMIN/CREAT RATIO RND UR ALBUMIN/CREAT RATIO RND UR Lab Routine Controlled type 2 diabetes mellitus without complication, without long-term current use of insulin (HCC) Expected: 01/04/2024, Expires: 04/04/2024 [facility] Work Phone: Comment on above: Expected: 01/04/2024, Expires: 4 Start: 01-04-2024 End: 04-04-2024 Basic metabolic 2000 panel - Serum or Plasma BASIC METABOLIC PANEL Lab Routine Muscle cramps Expected: 01/04/2024, Expires: 04/04/2024 [facility] Work Phone: Comment on above: Expected: 01/04/2024, Expires: 4 Start: 01-04-2024 End: 04-04-2024 Cobalamin (Vitamin B12) [Mass/volume] in Serum or Plasma VITAMIN B12 Lab Routine Muscle cramps Weakness of lower extremity, unspecified laterality Controlled type 2 diabetes mellitus without complication, without long-term current use of insulin (HCC) Expected: 01/04/2024, Expires: 04/04/2024 [facility] Comment on above: Expected: 01/04/2024, Expires: Start: 01-04-2024 Hepatitis B screening URINE ALBUMIN:CREATININE RATIO [facility] Start: 01-04-2024 End: 04-04-2024 Magnesium [Mass/volume] in Serum or Plasma MAGNESIUM Lab Routine Muscle cramps Expected: 01/04/2024, Expires: 04/04/2024 [facility] Comment on above: Expected: 01/04/2024, Expires: 4 Start: 01-04-2024 End: 04-04-2024 Thyrotropin [Units/volume] in Serum or Plasma THYROID STIMULATING HORMONE Lab Routine Borderline abnormal thyroid function test Expected: 01/04/2024, Expires: 04/04/2024 [facility] Comment on above: Expected: 01/04/2024, Expires: Start: 01-04-2024 End: 04-04-2024 Thyroxine (T4) free [Mass/volume] in Serum or Plasma T4 FREE/FREE THYROXINE Lab Routine Borderline abnormal thyroid function test Expected: 01/04/2024, Expires: 04/04/2024 [facility] Comment on above: Expected: 01/04/2024, Expires: 4 Start: 01-03-2024 3 comp foot exam completed DIABETIC FOOT EXAM [facility] Start: 01-03-2024 ANNUAL PCP TEAM CHRONIC DISEASE VISIT ANNUAL PCP TEAM CHRONIC DISEASE VISIT [facility] Start: 01-03-2024 COVID-19 VACCINE (#1) COVID-19 VACCINE (#1) [facility] Comment on above: Postponed from 01/07/1973 (Declined at t his time) Start: 01-03-2024 Diabetic foot examination Diabetic Foot Exam [facility] Start: 01-03-2024 HEPATITIS B (1 of 3 - 3-dose series) HEPATITIS B (1 of 3 - 3-dose series) [facility] Comment on above: Postponed from 1972 (Declined at t his time) Start: 01-03-2024 Hepatitis B Vaccine (1 of 3 - 19+ 3-dose series) Hepatitis B Vaccine (1 of 3 - 19+ 3-dose series) [facility] Comment on above: Postponed from 1991 (Declined at t his time) Start: 01-03-2024 Hepatitis B Vaccine (1 of 3 - 3-dose series) Hepatitis B Vaccine (1 of 3 - 3-dose series) [facility] Comment on above: Postponed from 1972 (Declined at t his time) Start: 01-03-2024 HEPATITIS C SCREENING HEPATITIS C SCREENING [facility] Comment on above: Postponed from 1990 (Declined at t his time) Start: 01-03-2024 Hepatitis C screening Hepatitis C Screening [facility] Comment on above: Postponed from 1990 (Declined at t his time) Start: 01-03-2024 HIV SCREENING HIV SCREENING [facility] Comment on above: Postponed from 1990 (Declined at t his time) Start: 01-03-2024 HIV screening HIV Screening [facility] Comment on above: Postponed from 1990 (Declined at t his time) Start: 01-03-2024 SHINGRIX VACCINE (1 of 2) SHINGRIX VACCINE (1 of 2) [facility] Comment on above: Postponed from 2022 (Declined at t his time) Start: 12-25-2023 End: 03-25-2024 Hemoglobin A1c in Blood HGB A1C Lab Routine Controlled type 2 diabetes mellitus without complication, without long-term current use of insulin (HCC) Expected: 12/25/2023, Expires: 03/25/2024 [facility] Work Phone: Comment on above: Expected: 12/25/2023, Expires: Start: 12-25-2023 Hemoglobin A1c measurement HbA1C [facility] Start: 12-25-2023 Hemoglobin A1c/Hemoglobin.total in Blood HbA1C [facility] Start: 12-08-2023 Hepatitis B surface antibody level LDL CHOLESTEROL [facility] Start: 07-30-2023 Behavioral Health Screening Behavioral Health Screening [facility] Start: 07-30-2023 Depression Assessment Depression Assessment [facility] Start: 07-02-2023 End: 10-01-2023 Nuclear Ab [Presence] in Serum by Immunoassay [facility] Work Phone: Comment on above: Expected: 07/02/2023, Expires: 4 Start: 06-19-2023 End: 09-18-2023 CBC W Auto Differential panel - Blood CBC + DIFF Lab Routine Controlled type 2 diabetes mellitus without complication, without long-term current use of insulin (HCC) Hypertriglyceridemia Expected: 06/19/2023, Expires: 09/18/2023 [facility] Work Phone: Comment on above: Expected: 06/19/2023, Expires: 4 Start: 06-19-2023 End: 09-18-2023 Comprehensive metabolic 2000 panel - Serum or Plasma COMP METABOLIC PANEL Lab Routine Controlled type 2 diabetes mellitus without complication, without long-term current use of insulin (HCC) Hypertriglyceridemia Expected: 06/19/2023, Expires: 09/18/2023 [facility] Work Phone: Comment on above: Expected: 06/19/2023, Expires: 4 Start: 06-19-2023 End: 09-18-2023 Hemoglobin A1c in Blood HGB A1C Lab Routine Controlled type 2 diabetes mellitus without complication, without long-term current use of insulin (HCC) Expected: 06/19/2023, Expires: 09/18/2023 [facility] Work Phone: Comment on above: Expected: 06/19/2023, Expires: 4 Start: 06-19-2023 End: 09-18-2023 Lipid 1996 panel - Serum or Plasma LIPID PANEL BASIC Lab Routine Hypertriglyceridemia Expected: 06/19/2023, Expires: 09/18/2023 [facility] Work Phone: Comment on above: Expected: 06/19/2023, Expires: 4 Start: 06-19-2023 End: 09-18-2023 Thyrotropin [Units/volume] in Serum or Plasma TSH BLD Lab Routine Borderline abnormal thyroid function test Expected: 06/19/2023, Expires: 09/18/2023 [facility] Work Phone: Comment on above: Expected: 06/19/2023, Expires: Start: 06-09-2023 Hemoglobin A1c/Hemoglobin.total in Blood HBA1C [facility] Start: 03-30-2023 Covid-19 Vaccine () Covid-19 Vaccine () [facility] Start: 03-30-2023 Influenza vaccination [facility] Start: 01-02-2023 End: 03-04-2023 ALBUMIN/CREAT RATIO RND UR ALBUMIN/CREAT RATIO RND UR Lab Routine Controlled type 2 diabetes mellitus without complication, without long-term current use of insulin (HCC) Expected: 01/02/2023, Expires: 03/04/2023 [facility] Work Phone: Comment on above: Expected: 01/02/2023, Expires: 3 Start: 01-02-2023 End: 03-04-2023 Cobalamin (Vitamin B12) [Mass/volume] in Serum or Plasma VITAMIN B12 BLOOD Lab Routine Paresthesia Expected: 01/02/2023, Expires: 03/04/2023 [facility] Work Phone: Comment on above: Expected: 01/02/2023, Expires: 3 Start: 01-02-2023 End: 03-04-2023 Folate [Mass/volume] in Serum or Plasma FOLATE SERUM Lab Routine Paresthesia Expected: 01/02/2023, Expires: 03/04/2023 [facility] Work Phone: Comment on above: Expected: 01/02/2023, Expires: 3 Start: 01-02-2023 End: 03-04-2023 PROTEIN ELECTROPHORESIS SERUM W/INTERP PROTEIN ELECTROPHORESIS SERUM W/INTERP Lab Routine Paresthesia Expected: 01/02/2023, Expires: 03/04/2023 [facility] Work Phone: Comment on above: Expected: 01/02/2023, Expires: 3 Start: 01-02-2023 End: 03-04-2023 Thyrotropin [Units/volume] in Serum or Plasma TSH BLD Lab Routine Paresthesia Expected: 01/02/2023, Expires: 03/04/2023 [facility] Work Phone: Comment on above: Expected: 01/02/2023, Expires: Start: 12-06-2022 End: 02-05-2023 25-hydroxyvitamin D3 [Mass/volume] in Serum or Plasma VITAMIN D 25 HYDROXY Lab Routine Hyperglycemia Weight loss Expected: 12/06/2022, Expires: 02/05/2023 [facility] Work Phone: Comment on above: Expected: 12/06/2022, Expires: 3 Start: 12-06-2022 End: 02-05-2023 CBC W Auto Differential panel - Blood CBC + DIFF Lab Routine Hyperglycemia Weight loss Expected: 12/06/2022, Expires: 02/05/2023 [facility] Work Phone: Comment on above: Expected: 12/06/2022, Expires: Start: 12-06-2022 End: 02-05-2023 Comprehensive metabolic 2000 panel - Serum or Plasma COMP METABOLIC PANEL Lab Routine Hyperglycemia Weight loss Expected: 12/06/2022, Expires: 02/05/2023 [facility] Work Phone: Comment on above: Expected: 12/06/2022, Expires: 3 Start: 12-06-2022 End: 02-05-2023 Hemoglobin A1c in Blood HGB A1C Lab Routine Hyperglycemia Weight loss Expected: 12/06/2022, Expires: 02/05/2023 [facility] Work Phone: Comment on above: Expected: 12/06/2022, Expires: 3 Start: 12-06-2022 End: 02-05-2023 Lipid 1996 panel - Serum or Plasma LIPID PANEL BASIC Lab Routine Screening for lipid disorders Expected: 12/06/2022, Expires: 02/05/2023 [facility] Work Phone: Comment on above: Expected: 12/06/2022, Expires: 3 Start: 12-06-2022 End: 02-05-2023 Thyrotropin [Units/volume] in Serum or Plasma TSH BLD Lab Routine Weight loss Expected: 12/06/2022, Expires: 02/05/2023 [facility] Work Phone: Comment on above: Expected: 12/06/2022, Expires: 3 Start: 07-30-2022 DEPRESSION ASSESSMENT DEPRESSION ASSESSMENT [facility] Start: 2022 SHINGRIX VACCINE (1 of 2) SHINGRIX VACCINE (1 of 2) [facility] Start: 07-08-2019 LIPID SCREEN LIPID SCREEN [facility] Start: 10-13-2018 Urine microalbumin profile DTAP,TDAP,TD (2 - Td or Tdap) [facility] Start: 2017 COLOGUARD (FIT-DNA) COLOGUARD (FIT-DNA) [facility] Start: 2017 Colonoscopy COLONOSCOPY [facility] Start: 2017 COLORECTAL CANCER SCREENING COLORECTAL CANCER SCREENING [facility] Start: [address] COLONOGRAPHY [facility] Start: 2017 DIABETES SCREEN DIABETES SCREEN [facility] Start: 2017 FECAL OCCULT BLOOD FECAL OCCULT BLOOD [facility] Start: 2017 Screening for malignant neoplasm of colon [facility] Start: 2017 SIGMOIDOSCOPY SIGMOIDOSCOPY [facility] Start: 1991 Hepatitis B Vaccine (1 of 3 - 19+ 3-dose series) Hepatitis B Vaccine (1 of 3 - 19+ 3-dose series) [facility] Start: 1991 Pneumococcal Vaccine: 50+ (1 of 2 - PCV) Pneumococcal Vaccine: 50+ (1 of 2 - PCV) [facility] Start: 1990 Anxiety Screening Anxiety Screening [facility] Start: 1990 Depression Screening Depression Screening [facility] Start: 1990 HEPATITIS C SCREENING HEPATITIS C SCREENING [facility] Start: 1990 Hepatitis C screening Hepatitis C Screening [facility] Start: 1990 HIV SCREENING HIV SCREENING [facility] Start: 1990 HIV screening HIV Screening [facility] Start: 1982 Hepatitis B screening URINE ALBUMIN:CREATININE RATIO [facility] Start: 1982 Hepatitis C antibody, confirmatory test DILATED RETINAL EXAM [facility] Start: 1978 PNEUMOCOCCAL (1 - PCV) PNEUMOCOCCAL (1 - PCV) [facility] Start: 1978 Pneumococcal vaccination Pneumococcal Vaccine (1 - PCV) [facility] Start: 01-07-1973 COVID-19 VACCINE (#1) COVID-19 VACCINE (#1) [facility] Start: 1972 HEPATITIS B (1 of 3 - 3-dose series) HEPATITIS B (1 of 3 - 3-dose series) [facility] End: 02-11-2026 BD DXA TRABECULAR BONE SCORE (TBS) BD DXA TRABECULAR BONE SCORE (TBS) Radiology Routine Osteopenia of multiple sites 1 Occurrences starting 01/12/2025 until 02/11/2026 [facility] Comment on above: 1 Occurrences starting 01/12/2025 until 02/11/2026 BD DXA TRABECULAR SONALI NE SCORE (TBS) BD DXA TRABECULAR BONE SCORE (TBS) Radiology Routine Osteopenia of multiple sites 02/03/2025 11:33 AM EDT [facility] End: 02-11-2026 DXA Skeletal system.axial Views for bone density DXA-AXIAL SKELETON Radiology Routine Osteopenia of multiple sites 1 Occurrences starting 01/12/2025 until 02/11/2026 [facility] Comment on above: 1 Occurrences starting 01/12/2025 until 02/11/2026 DXA Skeletal system.axial Views for bone density DXA-AXIAL SKELETON Radiology Routine Osteopenia of multiple sites 02/03/2025 11:33 AM EDT [facility] Work Phone: End: 02-12-2025 PAP TITRATION PSG (CPAP, BIPAP, ASV) PAP TITRATION PSG (CPAP, BIPAP, ASV) Procedures Routine MIKHAIL (obstructive sleep apnea) CSA (central sleep apnea) 1 Occurrences starting 01/14/2024 until 02/12/2025 [facility] Work Phone: Comment on above: 1 Occurrences starting 01/14/2024 until 02/12/2025 End: 05-18-2025 PAP TITRATION PSG (CPAP, BIPAP, ASV) PAP TITRATION PSG (CPAP, BIPAP, ASV) Procedures Routine Central sleep apnea MIKHAIL (obstructive sleep apnea) 1 Occurrences starting 04/18/2024 until 05/18/2025 [facility] Work Phone: Comment on above: 1 Occurrences starting 04/18/2024 until 05/18/2025 Patient referral [facility] Work Phone: End: 02-15-2026 US Abdomen RUQ US ABD RIGHT UPPER QUADRANT Radiology Routine Elevated liver enzymes 1 Occurrences starting 01/16/2025 until 02/15/2026 [facility] Work Phone: Comment on above: 1 Occurrences starting 01/16/2025 until 02/15/2026 US Abdomen RUQ US ABD RIGHT UPP ER QUADRANT Radiology Routine Elevated liver enzymes 01/19/2025 10:41 AM EDT [facility] End: 01-19-2025 Us abdominal real time w/image limited [facility] Work Phone: Comment on above: ONCE for 1 Occurrences starting 01/20/20 until 01/19/2025 End: 03-13-2026 US Kidney - bilateral and Urinary bladder US KIDNEY/BLADDER Radiology Routine Renal insufficiency 1 Occurrences starting 02/11/2025 until 03/13/2026 [facility] Work Phone: Comment on above: 1 Occurrences starting 02/11/2025 until 03/13/2026 End: 03-04-2026 XR Chest PA and Lateral XR CHEST 2V FRONTAL/LAT Radiology Routine Bacterial pneumonia 1 Occurrences starting 02/02/2025 until 03/04/2026 [facility] Work Phone: Comment on above: 1 Occurrences starting 02/02/2025 until 03/04/2026 XR Chest PA and Lateral XR CHEST 2V FRONTAL/LAT Radiology Routine Bacterial pneumonia 02/23/2025 10:16 AM EDT [facility] Work Phone: [facility] Immunizations Immunization Date Immunization Notes Care Provider Inez martinez 01-02-2023 tetanus toxoid, redu melissa diphtheria toxoid, and acellular pertussis vaccine, adsorbed Edouard Noland MD Work Phone: [facility] 05-21-2019 influenza, injectabl e, quadrivalent, contains preservative Edouard Noland MD Work Phone: [facility] 05-21-2019 influenza virus vaccine, unspecified formulation Edouard Noland MD Work Phone: [facility] 04-30-2017 influenza, injectabl e, quadrivalent, contains preservative Edouard Noland MD Work Phone: [facility] Work Phone: 05-27-2016 influenza, injectabl e, quadrivalent, contains preservative Edouard Noland MD Work Phone: [facility] 07-06-2014 influenza, seasonal, injectable Edouard Noland MD Work Phone: [facility] 10-13-2008 tetanus toxoid, redu melissa diphtheria toxoid, and acellular pertussis vaccine, adsorbed Edouard Noland MD Work Phone: [facility] Work Phone: Payers Date Payer Category Payer Self-pay 2022 Medicaid [id number] 2022 Blue [employer] Blue Shield [id number] 2022 Unknown [id number] 2022 Unknown [id number] 2014 Unknown [employer] [id number] Unknown [id number] Unknown [id number] Unknown [id number] Unknown [id number] Social History Date Type Detail Facility Start: 03-18-2012 End: 01-21-2025 Tobacco smoking status NHIS Never smoked tobacco [facility] Start: 03-18-2012 Tobacco use and exposure Smoke less tobacco non-user [facility] Start: 05-27-2019 End: 01-12-2025 Alcohol intake Current non-drinker of alcohol (finding) [facility] Start: 1970 Sex Assigned At Not on file [facility] Start: 01-02-2023 History SDOH Alcohol Frequency 1 [facility] Start: 01-02-2023 History SDOH Alcohol Std Drinks 0 [facility] Start: 01-02-2023 History SDOH Social Connections Phone 98 [facility] Start: 01-02-2023 History SDOH Social Connections Advent 3 [facility] Start: 01-02-2023 History SDOH Social Connections Membership 2 [facility] Start: 01-02-2023 History SDOH Physica l Activity DPW 6 [facility] Start: 01-02-2023 History SDOH Financial 5 [facility] Start: 01-02-2023 End: 04-21-2024 History of Social function [facility] Start: 01-02-2023 End: 04-21-2024 Social connection and isolation panel [facility] In a typical week, h ow many times do you talk on the telephone with family, friends, or neighbors? Patient refused [facility] Do you belong to any clubs or organizations such as caodaism groups, unions, fraternal or athletic groups, or school groups? No [facility] Are you now , , , , never or living with a partner? [facility] How often to you hav e a drink containing alcohol? Never [facility] Do you feel stress - tense, restless, nervous, or anxious, or unable to sleep at night because your mind is troubled all the time - these days [OSQ] Not at all [facility] (I/We) worried whemilagro er (my/our) food would run out before (I/we) got money to buy more. Never true [facility] How hard is it for y ou to pay for the very basics like food, housing, medical care, and heating Not very hard [facility] Do you feel stress - tense, restless, nervous, or anxious, or unable to sleep at night because your mind is troubled all the time - these days [OSQ] Only a little [facility] Start: 01-14-2016 Alcohol Alcohol [facility] Start: 01-14-2016 Tobacco Use Tobacco Use [facility] Start: 1970 Sex Assigned At Male W [facility] Medical Equipment Procedure Code Equipment Code Equipment Origin al Text Equipment Identifier Dates Test blood sugar(s) 1 times daily. Dx: Type 2 DM - Controlled E11.9 Insulin: No [id number], [id number] Start: 01-02-2023 Comment on above: Test blood sugar(s) 1 times daily. Dx: Type 2 DM - Controlled E11.9 Insulin: No Functional Status Date Assessment Result Facility 11-16-2014 Are you deaf, or do you have serious difficulty hearing No 11/16/2014 3:27 PM Leonie Yadav LPN No [facility] 11-16-2014 Are you blind, or do you have serious difficulty seeing, even when wearing glasses No 11/16/2014 3:27 PM Leonie Yadav LPN No [facility] 11-16-2014 Do you have serious difficulty walking or climbing stairs No 11/16/2014 3:27 PM Leonie Yadav LPN No [facility] 11-16-2014 Do you have difficul ty dressing or bathing No 11/16/2014 3:27 PM Leonie Yadav LPN No [facility] 11-16-2014 Because of a physica l, mental, or emotional condition, do you have difficulty doing errands alone such as visiting a physician's office or shopping No 11/16/2014 3:27 PM Leonie Yadav LPN No [facility] Mental Status Date Assessment Result Facility 06-25-2025 Cognitive function Voice/Name Celeste C [facility] Work Phone: 11-16-2014 Because of a physica l, mental, or emotional condition, do you have serious difficulty concentrating, remembering, or making decisions No 11/16/2014 3:27 PM EDT Leonie Zheng LPN No [facility] Clinical Notes 08-07-2008 to 02-25-2025 Telephone Encounter - Leonie Zheng LPN - 02/25/2025 3:26 PM EDTTelephone Encounter - Leonie Zheng LPN - 02/25/2025 3:26 PM EDTTelephone Encounter - Edouard Noland MD - 02/25/2025 3:08 PM EDT Note Date & Type Note Facility 02-25-2025 Telephone encounter Note Faxed as requested. [facility] 02-25-2025 Miscellaneous Notes Faxed as requested. Spoke [...] inflammatory vs possible tumor. to take to [facility] ER. Spoke with er. Please fax xray from today and labs to them documented in this encounter [facility] 02-25-2025 Telephone encounter Note Spoke with regarding [...] inflammatory vs possible tumor. to take to [facility] ER. Spoke with er. Please fax xray from today and labs to them [facility] 02-23-2025 History of Present illness Narrative Radiology [...] PATIENT PRESENTS WITH AN IMPLANTABLE OR ATTACHED OUTSIDE SALESPERSON: No RADIOLOGY DEPARTMENT: General X-ray: Exam(s) Completed: Chest X-Ray PERIPHERAL IV DATA: Not applicable SIGNED BY: CHARLENE Feliz) February 23, 2025 10:49 AM documented in this encounter [facility] 02-23-2025 Note HNO ID: [id number] Author: ALISA AVELAR RT(R) Service: ? Author [...] PATIENT PRESENTS WITH AN IMPLANTABLE OR ATTACHED OUTSIDE SALESPERSON: No RADIOLOGY DEPARTMENT: General X-ray: Exam(s) Completed: Chest X-Ray PERIPHERAL IV DATA: Not applicable SIGNED BY: RT Trini(R) February 23, 2025 10:49 AM [facility] 02-16-2025 Telephone encounter Note Images from the original note were not included. [facility] Work Phone: 02-16-2025 Miscellaneous Notes Images from the original note were not included. documented in this encounter [facility] 02-12-2025 Telephone encounter Note Patient's was made aware of the results.and verbalizes understanding. She said he already has a follow up appointment scheduled. She will make the ultrasound appointment next week and make sure he gets his labs completed Keira Loomis Ma [facility] 02-12-2025 Miscellaneous Notes Patient's was made aware [...] us as well. Edouard Noland MD to [facility] [place] 02/11/25 8:38 AM Result Note Waiting on [...] PANEL Associated Results documented in this encounter [facility] 02-12-2025 Telephone encounter Note Images from the [...] us as well. Edouard Noland MD to [facility] [place] 02/11/25 8:38 AM Result Note Waiting on pending but will take a while for some. Calcium is a little better but still pretty high. See endo as we discussed. Kidney function is still a little high. Continue to push fluids. Avoid nsaids and supplements. Recheck bmp, cbc in two weeks and ua. Check renal us BASIC METABOLIC PANEL Associated Results [facility] 02-03-2025 History of Present illness Narrative Radiology [...] PATIENT PRESENTS WITH AN IMPLANTABLE OR ATTACHED OUTSIDE SALESPERSON: No RADIOLOGY DEPARTMENT: Bone Density PERIPHERAL IV DATA: Not applicable SIGNED BY: RT Patricia(Ema) February 03, 2025 11:33 AM documented in this encounter [facility] 02-03-2025 Note HNO ID: [id number] Author: PATTI MOLINA RT(R) Service: ? Author [...] PATIENT PRESENTS WITH AN IMPLANTABLE OR ATTACHED OUTSIDE SALESPERSON: No RADIOLOGY DEPARTMENT: Bone Density PERIPHERAL IV DATA: Not applicable SIGNED BY: RT Patricia(Ema) February 03, 2025 11:33 AM [facility] 02-02-2025 Telephone encounter Note Phoned patient Ivonne left message to return call and ask for museum service scheduler can assit with scheduling for the Endocrine appt, on her voicemail. [facility] 02-02-2025 Miscellaneous Notes Phoned patient Ivonne left message to return call and ask for museum service scheduler can assit with scheduling for the Endocrine [...] and answer providers questions. Patti Drew, AMIE Saw he did go to ER while I was out. Needs his labs rechecked and keep his follow up. Did they set up appt to see endo because of the hypercalcemia documented in this encounter [facility] 02-02-2025 Telephone encounter Note Phoned Ivonne and left message with notes from Dr Noland on her voicemail. Order in computer for the chest xray. [facility] 02-02-2025 Miscellaneous Notes Phoned Ivonne and left [...] diagnosis. Please advise documented in this encounter [facility] 02-02-2025 Telephone encounter Note Please get set up [facility] 02-02-2025 Telephone encounter Note Can be done in next few weeks. [facility] 02-02-2025 Telephone encounter Note Patient Ivonne returned call and went over notes from Dr Noland with understanding. She said no he is not set up with Endocrine as yet. She will get his labs done. He has bone density scheduled for tomorrow. She is hoping to get Endocrine appt set up soon. [facility] 02-02-2025 Telephone encounter Note Patient Ivonne calling asking when did PCP want to have him do repeat chest xray? Can leave her a message, she works until 8 pm today. Pending order needs diagnosis. Please advise [facility] 01-28-2025 Telephone encounter Note Called and left a detailed voicemail notifying patient's of providers message. Clinic phone number was left for patient's to call back and answer providers questions. Patti Drew, AMIE [facility] 01-28-2025 Telephone encounter Note Saw he did go to ER while I was out. Needs his labs rechecked and keep his follow up. Did they set up appt to see endo because of the hypercalcemia [facility] 01-28-2025 Telephone encounter Note See te [facility] 01-28-2025 Miscellaneous Notes See te Patient's spouse presented at front office clerk wanting to make sure that Dr. Noland/staff were aware that the patient will need a new prescription for the Wyatt 3 Plus as the original is being discontinued. Please assist. documented in this encounter [facility] 01-28-2025 Telephone encounter Note Patient's spouse presented at front office clerk wanting to make sure that Dr. Noland/staff were aware that the patient will need a new prescription for the Wyatt 3 Plus as the original is being discontinued. Please assist. [facility] 01-23-2025 Telephone encounter Note Spoke with and advised of provider message. Keira Loomis MA January 23, 2025 10:06 AM [facility] 01-23-2025 Miscellaneous Notes Spoke with and advised [...] and quit smoking. documented in this encounter [facility] 01-23-2025 Telephone encounter Note First off, make [...] to indicate if repeat imaging is needed. [facility] 01-23-2025 Progress note Formatting of t his [...] indicate if repeat imaging is needed. T [facility] Work Phone: 01-23-2025 Telephone encounter Note Spoke [...] asking what he can do or take? [facility] 01-23-2025 Telephone encounter Note ----- Message from [...] or very little alcohol, and quit smoking. [facility] 01-22-2025 Progress note Formatting of t his [...] or very little alcohol, and quit smoking. [facility] 01-22-2025 Radiology Diagnostic study note [facility] [address] [place] [address] Chest 1 View MR#: [id number] Acct: [id number] Name: TRESA MUÑOZ Rep #: [id number] : 1970 M 54 From: Frandy Gutierrez MD PCP: Dr. Edouard Noland MD Status: REG E R Study:Chest 1 View Date of Exam: Exam# [id number] Ordering Dr: Rosa Caceres DO PROCEDURE: CHEST [...] perihilar and lower lobe infiltrates. Reading Location: [place] [address] CC: Dr. Edouard Noland MD; DO Shelly Santos Concrete Layer: Signed [facility] 01-21-2025 Radiology Diagnostic study note [facility] [address] [place] [address] Chest 1 View (Portable) MR#: [id number] Acct: [id number] Name: TRESA MUÑOZ Rep #: [id number] : 1970 M 54 From: Luz Baldwin MD PCP: Dr. Edouard Noland MD Status: REG E R Study:Chest 1 View (Portable) Date of Exam: 01/21/25 Exam# [id number] Ordering Dr: Rosa Caceres DO PROCEDURE: CHEST [...] may reflect pneumonitis or pneumonia. Reading Location: [id number] CC: Dr. Edouard Noland MD; Elliot Caceres DO ~ Concrete Layer: Signed [facility] 01-21-2025 History of Present illness Narrative [...] not present. Adherence: denies missed doses. Pharmacy: [facility] [address] [place] [id number] - [address] - [phone] 74 Rx coverage: Payor: ANTHEM / Plan: [...] ST 16/11 cmH2O with BUR 12 DME [facility] dihydroberberine (BERBERINE ES-5 ORAL) Take 1 [...] spent: 23 mins documented in this encounter [facility] 01-21-2025 Note HNO ID: [id number] Author: NOBLE LAWSON RPh Service: ? Author Type: Pharmacist Type: Progress Notes Filed: 01/21/2025 13:39 Note Text: Primary Care Pharmacy Visit CC (Reason for Consult): Diabetes (E11.9) Controlled type 2 diabetes mellitus without complication, without long-term current use of insulin ([facility]) (primary encounter diagnosis) Goal: A1c < 7% [...] not present. Adherence: denies missed doses. Pharmacy: [facility] [address] [place] [id number] - [address] - [phone] 74 Rx coverage: Payor: ANTHEM / Plan: [...] ST 16/11 cmH2O with BUR 12 DME [facility] dihydroberberine (BERBERINE ES-5 ORAL) Take 1 [...] as needed. T (more content not included)... [facility] 01-19-2025 History of Present illness Narrative [...] PATIENT PRESENTS WITH AN IMPLANTABLE OR ATTACHED OUTSIDE SALESPERSON: No RADIOLOGY DEPARTMENT: Ultrasound PERIPHERAL IV DATA: Not applicable SIGNED BY: Porsha De Paz RDMS RVKody January 19, 2025 11:13 AM documented in this encounter [facility] 01-19-2025 Note HNO ID: [id number] Author: PORSHA DE PAZ RDMS Service: ? Author Type: Websphere Commerce Architect Type: Progress Notes Filed: 01/19/2025 11:13 Note [...] PATIENT PRESENTS WITH AN IMPLANTABLE OR ATTACHED OUTSIDE SALESPERSON: No RADIOLOGY DEPARTMENT: Ultrasound PERIPHERAL IV DATA: Not applicable SIGNED BY: Porsha De Paz RDMS RVT January 19, 2025 11:13 AM [facility] 01-16-2025 Telephone encounter Note Spoke with patient is feeling overall ok. Couple of rough days but doing ok now. They are currently stuck in [place] with their van broken down. Will call when they get home to schedule. [facility] 01-16-2025 Miscellaneous Notes Spoke with patient is [...] up with one of when back in [facility]. I am still waiting on all your labs. If you feels worse, please go to Er in [place]. Follow up with one of us when you return. Your one vit d test is high. Again, I would stop all supplements. I am hoping they are the culprit and driving your calcium and vit d too high which in turn is dehydrating you. We will contact you when we get all the labs back. documented in this encounter [facility] 01-16-2025 Telephone encounter Note See below. He did not read the my chart. We are still waiting on his pthrp but it takes a while. His vit d is high and liver alk phos is up. Needs liver us also. Make sure has follow up with one of when back in [facility]. I am still waiting on all your labs. If you feels worse, please go to Er in [place]. Follow up with one of us when you return. Your one vit d test is high. Again, I would stop all supplements. I am hoping they are the culprit and driving your calcium and vit d too high which in turn is dehydrating you. We will contact you when we get all the labs back. [facility] 01-14-2025 Telephone encounter Note Trulicity has been approved. Mailbox is full unable to leave a message for patient. Will send Mychart message. [facility] 01-14-2025 Miscellaneous Notes Trulicity has been approved. [...] his BS-- [facility]. Leonora Smith LPN I would hold on [...] the PA has not gone through for [facility] yet. Pt will come in to get [...] call or ER documented in this encounter [facility] 01-13-2025 Telephone encounter Note Ok. Patient is declining treatment. Will await pending labs. Thank you [facility] 01-13-2025 Miscellaneous Notes Ok. Patient is declining treatment. Will await pending labs. Thank you Spoke with patient and reviewed provider's message with him. Patient reports that he already left for [place]. Advised patient I could forward the information to one of the ER's along the way to [place] or in [place] if he could provide Name of the [...] calcium and labs documented in this encounter [facility] 01-13-2025 Telephone encounter Note Images from the original note were not included. rior authorization approved Payer: [employer] [phone] Note from payer: CaseId:[id number];Status:Approved;Re view Type:Prior Auth;Coverage Start Date:12/14/2024;Coverage End Date:01/13/2026; Approval Details Authorized from December 14, 2024 to January 13, 2026 Electronic appeal: Not supported View History Pharmacy Benefits Open Encounter TRESA MUÑOZ ([employer]) Covered: Retail, Mail Order Unknown: Specialty, Long-Term Care BIN: [id number] : 1970 Group ID: [id number] PCN: [id number] Legal sex: M Group name: [employer] [employer] Address: [address] [place] [address] Medication Being Authorized dulaglutide (TRULICITY) 0.75 mg/0.5 mL pen injector Inject 0.75 mg subcutaneously one time a week. Dispense: 6 mL Refills: 3 Start: 01/12/2025 End: 01/12/2026 Class: Normal Diagnoses: Controlled type 2 diabetes mellitus without complication, without long-term current use of insulin (HCC) This order has been released to its destination. To be filled at: [facility] [address] [place] [id number] - [address] - [phone] 74 Pharmacy notified. [facility] 01-13-2025 Miscellaneous Notes Images from the original note were not included. rior authorization approved Payer: [employer] [phone] Note from payer: CaseId:[id number];Status:Approved;Re view Type:Prior Auth;Coverage Start Date:12/14/2024;Coverage End Date:01/13/2026; Approval Details Authorized from December 14, 2024 to January 13, 2026 Electronic appeal: Not supported View History Pharmacy Benefits Open Encounter TRESA MUÑOZ [employer] ([employer]) Covered: Retail, Mail Order Unknown: Specialty, Long-Term Care BIN: [id number] : 1970 Group ID: [id number] PCN: [id number] Legal sex: M Group name: [employer] Address: [address] [place], [place] [id number] Medication Being Authorized dulaglutide (TRULICITY) 0.75 mg/0.5 mL pen injector Inject 0.75 mg subcutaneously one time a week. Dispense: 6 mL Refills: 3 Start: 01/12/2025 End: 01/12/2026 Class: Normal Diagnoses: Controlled type 2 diabetes mellitus without complication, without long-term current use of insulin (HCC) This order has been released to its destination. To be filled at: [facility] [address] [place] [id number] - [address] [facility] - [phone] Pharmacy notified. Electronic PA rec'd and completed for dulaglutide (TRULICITY) 0.75 mg/0.5 mL pen injector documented in this encounter [facility] 01-13-2025 Telephone encounter Note Electronic JAYLON reddy and completed for dulaglutide (TRULICITY) 0.75 mg/0.5 mL pen injector [facility] 01-13-2025 Telephone encounter Note Spoke with patient and reviewed provider's message with him. Patient reports that he already left for [place]. Advised patient I could forward the information to one of the ER's along the way to [place] or in [place] if he could provide Name of the hospital. Patient declined and stated he was just going to watch what he ate and increase his fluid intake. Advised patient that I would let Dr Noland know. Inez Oviedo LPN [facility] 01-13-2025 Telephone encounter Note Not all labs are back. But just called with a a critically high ionized calcium. Can cause symptoms like the numbness and tingling etc. High calcium can be an emergency. It is high enough, he likely requires iv fluids and may need further work up. Send to Er of his choice. Fax yesterdays notes, todays critical calcium and labs [facility] 01-13-2025 Note HNO ID: [id number] Author: EDOUARD NOLAND MD Service: ? Author [...] was a couple of years ago at [facility]. Fatigue: - Variable fatigue, requiring a [...] ST 16/11 cmH2O with BUR 12 DME [facility] lutein-zeaxanthin 25-5 mg cap Take 1 [...] Diabetes mellitus type 2, controlled, without complications ([facility]) 01/02/2023 GERD (gastroesophageal reflux disease) Obstructive sleep [...] edema Respiratory: (+ (more content not included)... [facility] 01-13-2025 Telephone encounter Note Can we see if there is any way we can get assistance for the trulicity. Those herbs may well be contributing to his calcium and likely are not helping his sugar. [facility] 01-13-2025 Telephone encounter Note Pt's is asking [...] on PA for Trulicity. Leonora Smith LPN [facility] 01-13-2025 Telephone encounter Note I would hold on any supplements [facility] 01-13-2025 Telephone encounter Note Pt's called and [...] Please call and advise. Patti Drew RN [facility] 01-13-2025 Telephone encounter Note Not all his [...] severe muscle pain etc, call or ER [facility] 01-12-2025 Instructions Edouard Noland MD - 01/12/2025 [...] the results, and send a list via [employer] in two weeks so we can decide [...] snoring. - Schedule an eye exam with [facility]. - Fill and use Viagra [...] in six months. documented in this encounter [facility] 10-06-2024 History of Present illness Narrative Images [...] not present. Adherence: denies missed doses. Pharmacy: [facility] [address] [place] [id number] - [address] - [phone] Rx coverage: Payor: ANTHEM / Plan: [...] ST 14/10 cmH2O with BUR 12 BPM [facility] dihydroberberine (BERBERINE ES-5 ORAL) Take 1 [...] verbalized understanding of instructions. Noble Lawson PharmD, [facility] Primary Care Clinical Pharmacist Time spent: 22 mins documented in this encounter [facility] 10-06-2024 Note HNO ID: [id number] Author: NOBLE LAWSON RPh Service: ? Author [...] not present. Adherence: denies missed doses. Pharmacy: [facility] [address] [place] [id number] - [address] [facility] [phone] Rx coverage: Payor: ANTHEM / Plan: [...] 14/10 cmH2O with BUR 12 BPM DME [facility] dihydroberberine (BERBERINE ES-5 ORAL) Take 1 [...] metFORMIN ER (GLUCOPHAGE (more content not included)... [facility] 09-22-2024 Telephone encounter Note NOV 01/12/25 LES 07/07/24 [facility] 09-22-2024 Miscellaneous Notes 01/12/25 LES 07/07/24 documented in this encounter [facility] 09-01-2024 History of Present illness Narrative Images from the original note were not included. [facility] Follow up/ Established patient [...] study that was done on 02/09/24 at [facility] that should have been transitioned to biPAP but wasn't. It was started at CPAP 7 rather than 9 cmH2O as requested, and his AHI wasn't normalized including elevated centrals yet he wasn't transitioned to biPAP. We have requested [facility] retest him at no cost to the patient. Order for Bilevel titration starting at 8/4 cmH2O. Advance to biPAP ST if needed for central events. Will order new device from [facility], pt wants to switch to this DME Case discussed with Dr Ike Cowan, STORE PERSON.FRUIT OR NUT FARMWORKER Here for follow up for CSA on [...] Treatment : [facility] [place] [facility] History: Uses Bilevel PAP ST for [...] near accidents due to drowsy drivin 09/01/2024 [place] Sleepiness Scale Score 9 (No clinically significant [...] ST 14/10 cmH2O with BUR 12 BPM [facility] gabapentin (NEURONTIN) 300 mg capsule Take [...] Jh Cowan APRN.RUBIN documented in this encounter [facility] 09-01-2024 Note HNO ID: [id number] Author: JH COWAN APRN.CNP Service: ? Author Type: Nurse Practitioner Type: Progress Notes Filed: 09/02/2024 16:20 Note Text: [facility] Follow up/ Established patient [...] study that was done on 02/09/24 at [facility] that should have been transitioned to biPAP but wasn't. It was started at CPAP 7 rather than 9 cmH2O as requested, and his AHI wasn't normalized including elevated centrals yet he wasn't transitioned to biPAP. We have requested [facility] retest him at no cost to the patient. Order for Bilevel titration starting at 8/4 cmH2O. Advance to biPAP ST if needed for central events. Will order new device from [facility], pt wants to switch to this DME Case discussed with Dr Ike Cowan, STORE PERSON.FRUIT OR NUT FARMWORKER Here for follow up for CSA on [...] near accidents due to drowsy drivin 09/01/2024 [place] Sleepiness Scale Score 9 (No clinically significant [...] MIKHAIL G47.33 COMP (more content not included)... [facility] 07-31-2024 Telephone encounter Note Pt called and is notified of providers results and instructions. Pt voices understanding. Patti Drew RN [facility] 07-31-2024 Miscellaneous Notes Pt called and is [...] Bobbi Hart APRN.RUBIN documented in this encounter [facility] 07-29-2024 Telephone encounter Note Can please let [...] Everything else looks normal/stable. Bobbi Hart APRN.RUBIN [facility] 07-07-2024 Instructions Bobbi Hart APRN.CNP - 07/07/2024 9:08 AM EST Return for fasting labs. Continue the same medications. Recheck in 6 months. Sooner if needed. documented in this encounter [facility] 07-07-2024 Note HNO ID: [id number] Author: BOBBI HART APRN.CNP Service: ? Author [...] Diabetes mellitus type 2, controlled, without complications ([facility]) 01/02/2023 GERD (gastroesophageal reflux disease) Obstructive sleep [...] 13/9 cmH2O with BUR 12 bpm DME [facility] gabapentin (NEURONTIN) 300 mg capsule Take [...] wheezing, rhonchi, rales.. (more content not included)... [facility] 07-07-2024 History of Present illness Narrative [...] Diabetes mellitus type 2, controlled, without complications ([facility]) 01/02/2023 GERD (gastroesophageal reflux disease) Obstructive sleep [...] with BUR 12 [facility] [place] gabapentin (NEURONTIN) 300 mg capsule Take 1 [...] Bobbi Hart APRN.RUBIN documented in this encounter [facility] 05-27-2024 Telephone encounter Note RF sent PDMP website checked and validated. All prescriptions have been APPROPRIATELY filled. No suspicious activity was identified. 05/27/2024 by Jh Cowan APRN.RUBIN [facility] 05-27-2024 Miscellaneous Notes RF sent PDMP website checked and validated. All prescriptions have been APPROPRIATELY filled. No suspicious activity was identified. 05/27/2024 by Jh Cowan APRN.FRUIT OR NUT FARMWORKER Called spouse advised of message below from [...] the order and all related documents to [facility]. He will need a 31-90 day compliance follow up appointment. Jh Cowan APRN.CNP Pt and calling for results of sleep titration done at [facility] on 05/08. Results scanned into Epic. Please review and advise. Scan on 05/08/2024 by Provider, External PACady: Titration Study documented in this encounter [facility] 05-27-2024 Telephone encounter Note Called spouse advised of message below from Raphael Cowan, verbalized understanding. Advised orders were sent to [facility]. Spouse stated patient needs refill of gabapentin, called into Santa Myers LPN May 27, 2024 4:32 PM [facility] 05-27-2024 Telephone encounter Note Please apologize for the delay in our getting results. This study recommends biPAP ST at a pressure of 13/9 with a backup rate of 12 breaths per minute. He needs the backup rate in order to control his central apnea. Please fax the order and all related documents to [facility]. He will need a 31-90 day compliance follow up appointment. Jh Cowan APRN.RUBIN [facility] 05-27-2024 Telephone encounter Note Pt and calling for results of sleep titration done at [facility] on 05/08. Results scanned into Epic. Please review and advise. Scan on 05/08/2024 by Provider, ExternalDERICKC: Titration Study [facility] 09-27-2024 Telephone encounter Note Sandie [facility] called in and reports she needs Pt las OV note from Jh Cowan DIABETES EDUCATION COORDINATOR and order for titration study. She reports they will do it no charge, they just need it sent over for either the titration for Bipap or ASV. Faxed to # [phone]. [facility] 04-25-2024 Miscellaneous Notes Sandie [facility] called in and reports she needs Pt las OV note from Jh Cowan DIABETES EDUCATION COORDINATOR and order for titration study. She reports they will do it no charge, they just need it sent over for either the titration for Bipap or ASV. Faxed to # [phone]. documented in this encounter [facility] 04-21-2024 History of Present illness Narrative Images [...] complication, without long-term current use of insulin ([facility]) - ICD9: 250.00, ICD10: E11.9 A1c goal [...] though I encouraged him to discuss with FRUIT OR NUT FARMWORKER at upcoming appt in June. Perhaps pt would be willing to start statin if it could replace another medicine (ie aspirin) Advised to reach out to me before next visit if any questions/issues. Warned of backorder of [employer] 3, informed we can order the 3 Plus if needed Follow-up Patient is scheduled to see PCP team on 07/07. Patient to have f/up with PharmD team on 10/06. Patient verbalized understanding of instructions. Noble Lawson PharmD, [facility] Primary Care Clinical Pharmacist Time spent: 21 mins documented in this encounter [facility] 04-21-2024 Note HNO ID: [id number] Author: NOBLE LAWSON RPh Service: ? Author [...] not present. Adherence: denies missed doses. Pharmacy: [facility] Rx coverage: Payor: ANTHEM / [...] once daily. vit (more content not included)... [facility] 04-18-2024 History of Present illness Narrative Images from the original note were not included. [facility] Follow up/ Established patient [...] He is requesting titration be performed at [facility]. Order paced. Advised pt not to drive or operate heavy machinery if sleepy. Encouraged continued use of his PAP for now and explained need to clean (not using an ozone radiator cleaner) and replace equipment regularly. 3. RLS [...] PAP titration study which was done at [facility]. Dr Ramires ordered CPAP titration to start [...] accidents due to drowsy drivin 01/14/2024 04/18/2024 [place] Sleepiness Scale Score 9 (No clinically significant [...] study that was done on 02/09/24 at [facility] that should have been transitioned to biPAP but wasn't. It was started at CPAP 7 rather than 9 cmH2O as requested, and his AHI wasn't normalized including elevated centrals yet he wasn't transitioned to biPAP. We have requested [facility] retest him at no cost to the patient. Order for Bilevel titration starting at 8/4 cmH2O. Advance to biPAP ST if needed for central events. Will order new device from [facility], pt wants to switch to this DME Case discussed with Dr Ike Cowan APRN.FRUIT OR NUT FARMWORKER documented in this encounter [facility] 04-18-2024 Note HNO ID: [id number] Author: JH COWAN APRN.FRUIT OR NUT FARMWORKER Service: ? Author Type: Nurse Practitioner Type: Progress Notes Filed: 04/18/2024 13:39 Note Text: [facility] Follow up/ Established patient [...] He is requesting titration be performed at [facility]. Order paced. Advised pt not to drive or operate heavy machinery if sleepy. Encouraged continued use of his PAP for now and explained need to clean (not using an ozone radiator cleaner) and replace equipment regularly. 3. RLS [...] PAP titration study which was done at [facility]. Dr Ramires ordered CPAP titration to start [...] accidents due to drowsy drivin 01/14/2024 04/18/2024 [place] Sleepiness Scale Score 9 (No clinically significant [...] (ASPIRIN, ENTERIC COATED (more content not included)... [facility] 04-16-2024 Telephone encounter Note Gabapentin refilled That's fine to put him in my schedule PDMP website checked and validated. All prescriptions have been APPROPRIATELY filled. No suspicious activity was identified. 04/16/2024 by Jh Cowan APRN.FRUIT OR NUT FARMWORKER [facility] 04-16-2024 Miscellaneous Notes Gabapentin refilled That's fine to put him in my schedule PDMP website checked and validated. All prescriptions have been APPROPRIATELY filled. No suspicious activity was identified. 04/16/2024 by Jh Cowan APRN.FRUIT OR NUT FARMWORKER Pt's AHI was not normalized during sleep study. The study was not run as requested. Specifically: Pt with prior study at [facility] showing CSA, but titration normalized on 11 [...] that may need additional testing. Please inform [facility] of pt information and concerns. Patient should still have follow up with Ema Cowan CNP. Edouard Ramires MD reports patient had a sleep study done in December, and has still not heard back from Dr. Ramires, about the results. Given message in 04-10-24 MyChart encounter, and informed provider waiting on reply from [facility]. reports they were not aware patient was [...] Pended. Please advise and phone with reply: [phone] documented in this encounter [facility] 04-16-2024 Telephone encounter Note Pt's AHI was not normalized during sleep study. The study was not run as requested. Specifically: Pt with prior study at [facility] showing CSA, but titration normalized on 11 [...] that may need additional testing. Please inform [facility] of pt information and concerns. Patient should still have follow up with Ema Cowna CNP. Edouard Ramires MD [facility] 04-16-2024 Telephone encounter Note reports patient had a sleep study done in December, and has still not heard back from Dr. Ramires, about the results. Given message in 04-10-24 MyChart encounter, and informed provider waiting on reply from [facility]. reports they were not aware patient was [...] Pended. Please advise and phone with reply: [phone] [facility] 04-11-2024 Telephone encounter Note Left VM for the sleep department at [facility] to return call. Porsha Acharya LPN [facility] 04-11-2024 Miscellaneous Notes Left VM for the sleep department at [facility] to return call. Porsha Acharya LPN Pt was to follow up after sleep study with Ema Cowan CNP to review results and determine plan. Also note that study was not run as requested including starting on PAP setting of 9 cmH2O with low threshold for transition to bilevel PAP. Please inform [facility]. Edouard Ramires MD documented in this encounter [facility] 04-11-2024 Telephone encounter Note Pt was to follow up after sleep study with Ema Cowan CNP to review results and determine plan. Also note that study was not run as requested including starting on PAP setting of 9 cmH2O with low threshold for transition to bilevel PAP. Please inform [facility]. Edouard Ramires MD [facility] 02-19-2024 Telephone encounter Note Please see TE dated 01/14/24. Porsha Acharya LPN [facility] 02-19-2024 Miscellaneous Notes Please see TE dated 01/14/24. Porsha Acharya LPN phoned for results of titration study. Advised per 01-14-24 encounter, Creative Services Intern plans to discuss the results with Dr. Ramires, and patient may need another titration study. reports they really cannot afford another titration study, as this one cost them $600. Reports their daughter is in the hospital and had to have surgery yesterday, as well. and patient asking provider to change their DME to [facility]. Reports they are not happy dealing with [place]. Please advise patient and . documented in this encounter [facility] 02-19-2024 Telephone encounter Note phoned for results of titration study. Advised per 01-14-24 encounter, Creative Services Intern plans to discuss the results with Dr. Ramires, and patient may need another titration study. reports they really cannot afford another titration study, as this one cost them $600. Reports their daughter is in the hospital and had to have surgery yesterday, as well. and patient asking provider to change their DME to [facility]. Reports they are not happy dealing with [facility]. Please advise patient and . [facility] 01-16-2024 History of Present illness Narrative Images [...] necessary supplies such as tubing #1 G47.33 MKIHAIL (obstructive sleep apnea) (primary encounter diagnosis) COMPOUNDED [...] 265 07/08/2014 The 10-year ASCVD risk score (Benton DK, et al., 2019) is: 10.6% Values [...] spent: 30 mins documented in this encounter [facility] 01-14-2024 Telephone encounter Note Order for sleep study faxed to [facility] per request. Porsha Acharya LPN [facility] 01-14-2024 Miscellaneous Notes Order for sleep study faxed to [facility] per request. Porsha Acharya LPN Images from the original note were not included. Edouard Ramires Jr., MD P Wstr Neur Ike Nurse Pt would like study at [facility]. documented in this encounter [facility] 01-14-2024 Telephone encounter Note Images from the original note were not included. Edouard Ramires Jr., MD P Wstr Neur Ike Nurse Pt would like study at [facility]. [facility] 01-14-2024 Instructions Edouard Ramires Jr., MD - 01/14/2024 10:21 AM EDT Maintaining a healthy weight is stauffer to good sleep. documented in this encounter [facility] 01-14-2024 History of Present illness Narrative NEW [...] Diabetes mellitus type 2, controlled, without complications ([facility]) 01/02/2023 GERD (gastroesophageal reflux disease) Obstructive sleep [...] dysarthria; comprehension, naming, repetition intact. Short and prison memory intact. Fund of knowledge grossly normal [...] He is requesting titration be performed at [facility]. Order paced. Advised pt not to drive or operate heavy machinery if sleepy. Encouraged continued use of his PAP for now and explained need to clean (not using an ozone radiator cleaner) and replace equipment regularly. 3. RLS [...] which included preparing to see the patient, [id number] patient care, completing clinical documentation, obtaining and/or [...] 4 - Moderate documented in this encounter [facility] 01-04-2024 Instructions Bobbi Hart APRN.RUBIN - 01/04/2024 1:39 PM EDT Get labs. Continue same medications. Recheck in 6 months. documented in this encounter [facility] 01-04-2024 History of Present illness Narrative This [...] Diabetes mellitus type 2, controlled, without complications ([facility] [facility]) 01/02/2023 GERD (gastroesophageal reflux disease) Obstructive sleep [...] as needed for worsening/no improvement. Bobbi Hart APRN.FRUIT OR NUT FARMWORKER documented in this encounter [facility] 11-12-2023 Miscellaneous Notes Continue lamisil twice a [...] Justine Floyd MA documented in this encounter [facility] 11-01-2023 Instructions Luis Felipe Jordan PA-C - 11/01/2023 9:29 AM EDT Use medications as instructed. If not improving 10-14 days, let me know. It is possible it might be pityriasis rosea which is not a fungal infection and requires no treatment but will spontaneously resolved over a few months documented in this encounter [facility] 11-01-2023 History of Present illness Narrative 53 [...] Diabetes mellitus type 2, controlled, without complications ([facility]) 01/02/2023 GERD (gastroesophageal reflux disease) Obstructive sleep [...] for changes in prior data. Luis Felipe Jodran PA-C documented in this encounter [facility] 10-30-2023 Miscellaneous Notes Faxed and informed. Stephanie Keita MA printed Patient Ivonne calling CPAP mask fell apart last night. He does not have appt with Neurology until December. Willow is asking for new rx for mask and filters to be faxed to [facility] [place] at [phone]. Pending order. If any questions can leave message on her phone, she works [employer]. Please advise documented in this encounter [facility] 10-22-2023 History of Present illness Narrative Images [...] not present. Adherence: denies missed doses. [facility] Rx coverage: Payor: ANTHEM / [...] verbalized understanding of instructions. Noble Lawson, Elian, [facility] Primary Care Clinical Pharmacist The majority of the pharmacy visit (> 50%) was spent counseling and/or coordinating care for the patient. interaction: telephonic time was 30 minutes. documented in this encounter [facility] 02-12-2024 History of Present illness Narrative Images [...] complication, without long-term current use of insulin ([facility]) - ICD9: 250.00, ICD10: E11.9 A1c goal [...] improve with ER formulation. Noble Lawson PharmD, [facility] Primary Care Clinical Pharmacist documented in this encounter [facility] 09-06-2023 Miscellaneous Notes Patient has been identified [...] you. Natalie Cuenca. documented in this encounter [facility] 07-02-2023 Instructions Bobbi Hart APRN.RUBIN - 07/02/2023 12:33 PM EST Continue the same medications. Follow-up w/ Noble, as scheduled. Get the additional labwork at your convenience. Schedule w/ sleep medicine. Recheck in 6 months. documented in this encounter [facility] 07-02-2023 History of Present illness Narrative This [...] Yes - in toes -- sees the machine sizer every 3 months (Dr. Boggs). Elevated blood pressure. Stable. No CP/SOB. GERD Occasional. Can go weeks without, and the will flare. Better if he avoids tomato sauces. MIKHALI Problems with dryness. Hasn't been wearing as [...] Diabetes mellitus type 2, controlled, without complications ([facility]) 01/02/2023 GERD (gastroesophageal reflux disease) Obstructive sleep [...] days to upper arm. 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 Deisy Groves [...] consulted pharmacy. He could set up a [employer] account but usually only one person can [...] Please call spouse Ivonne with PCP response. [phone] Thank you. documented in this encounter [facility] 06-19-2023 Miscellaneous Notes Opened in error. Arielle Way RN documented in this encounter [facility] 02-05-2023 History of Present illness Narrative Primary [...] on a continuous glucose monitoring schedule - [employer] invite sent to patient Follow up: will follow up once patient has uploaded CGM device to Wyatt Rand PharmD, BCACP Primary Care Clinical Pharmacist The majority of the pharmacy visit (> 50%) was spent counseling and/or coordinating care for the patient. interaction: telephonic time was 20 minutes. documented in this encounter [facility] 01-16-2023 Miscellaneous Notes CGM last prescribed at [...] RAND RPh Wyatt 3 Sensor is on shirt closer backorder, asking if Dr. Noland can change order, [facility] has the Wyatt 2. Asking if order can be changed and sent. Tracy Ricardo LPN documented in this encounter [facility] 01-08-2023 History of Present illness Narrative Primary [...] was 50 minutes. documented in this encounter [facility] 01-02-2023 Instructions Edouard Noland MD - 01/02/2023 [...] grain hamburger bun, hot dog bun, or Citizen [place] muffin; of a small bagel or tortilla [...] whole grain crackers 1 small orange OR [place] with turkey, lettuce, tomato, 1 tablespoon reduced [...] ideas 3 cups unbuttered popcorn OR 1 splff-arw-h-half David crackers OR cup whole grain cereal [...] as noted above. These numbers can vary [id number]. Other Tips 1. Seeing a registered dietitian [...] to your appointment. documented in this encounter [facility] 01-02-2023 History of Present illness Narrative Patient [...] Abs Lymph 1.00 - 4.00 k/uL 1.08 [place]% % 11.5 Abs [place] <0.87 k/uL 0.55 [place]% % 5.2 Abs [...] - CONSULT TO INTM NURSE DIABETES - BLOCK PAVER [CONSULT TO SOCIAL WORK] - CONSULT TO [...] Edouard Noland MD documented in this encounter [facility] 12-12-2022 Miscellaneous Notes notified of results [id number] [...] it at times. Please call Shaista at [phone]. Arielle [address] RN documented in this encounter [facility] 12-06-2022 Miscellaneous Notes Phoned patient and aware [...] situation. Please advise documented in this encounter [facility] 11-21-2022 Miscellaneous Notes PT has been scheduled. Monalisa PSS That's fine. Pt has not been seen by since 2019. However pt would still like to see . Please review and advise. documented in this encounter [facility] 01-18-2016 History of Past i llness Narrative Problem Noted Date Resolved Date Acute appendicitis with localized peritonitis 01/02/2023 Routine general medical exam ination at a health care facility 08/07/2008 03/18/2012 Overview: 08/07/08 10/19/2010 documented as of this encounter (statuses as of 01/03/2023) [facility] History of Past illness Narrative* Problem Noted Date Resolved Date Acute appendicitis with localized peritonitis 01/02/2023 Routine general medical exam ination at a health care facility 08/07/2008 03/18/2012 Overview: 08/07/08 10/19/2010 documented as of this encounter (statuses as of 01/17/2023) [facility] of Past illness Narrative* Problem Noted Date Resolved Date Acute appendicitis with localized peritonitis 01/02/2023 Routine general medical exam ination at a health care facility 08/07/2008 03/18/2012 Overview: 08/07/08 10/19/2010 documented as of this encounter (statuses as of 01/17/2023) [facility] of Past [facility] Narrative* Problem Noted Date Diagnosed Date Resolved Date Acute appendicitis with localized peritonitis 01/18/20 16 01/02/2023 Routine general medical exam ination at a [facility] care facility 08/07/2008 03/18/2012 Overview: 08/07/08 10/19/2010 documented as of this encounter (statuses as of 02/12/2023) [facility] of [facility] Narrative* Problem Noted Date Diagnosed Date Resolved Date Acute appendicitis with localized peritonitis 01/18/20 16 01/02/2023 documented as of this encounter (statuses as of 06/06/2023) [facility] of [facility] illness Narrative* Problem Noted Date Diagnosed Date Resolved Date Acute appendicitis with localized peritonitis 01/18/20 16 01/02/2023 documented as of this encounter (statuses as of 06/19/2023) [facility] of [facility] illness Narrative* Problem Noted Date Diagnosed Date Resolved Date Acute appendicitis with localized peritonitis 01/18/20 16 01/02/2023 documented as of this encounter (statuses as of 06/20/2023) [facility] of [facility] illness Narrative* Problem Noted Date Diagnosed Date Resolved Date Acute appendicitis with localized peritonitis 01/18/20 16 01/02/2023 documented as of this encounter (statuses as of 06/26/2023) [facility] of [facility] Narrative* Problem Noted Date Diagnosed Date Resolved Date Acute appendicitis with localized peritonitis 01/18/20 16 01/02/2023 documented as of this encounter (statuses as of 07/03/2023) [facility] of [facility] Narrative* Problem Noted Date Diagnosed Date Resolved Date Acute appendicitis with localized peritonitis 01/18/20 16 01/02/2023 documented as of this encounter (statuses as of 09/06/2023) [facility] of [facility] Narrative* Problem Noted Date Diagnosed Date Resolved Date Acute appendicitis with localized peritonitis 01/18/20 16 01/02/2023 documented as of this encounter (statuses as of 09/11/2023) [facility] of [facility] Narrative* Problem Noted Date Diagnosed Date Resolved Date Acute appendicitis with localized peritonitis 01/18/20 16 01/02/2023 documented as of this encounter (statuses as of 10/22/2023) [facility] of [facility] Narrative* Problem Noted Date Diagnosed Date Resolved Date Acute appendicitis with localized peritonitis 01/18/20 16 01/02/2023 documented as of this encounter (statuses as of 10/31/2023) [facility] Narrative* Problem Noted Date Diagnosed Date Resolved Date Acute appendicitis with localized peritonitis 01/18/20 16 01/02/2023 documented as of this encounter (statuses as of 11/02/2023) [facility] of [facility] Narrative* Problem Noted Date Diagnosed Date Resolved Date Acute appendicitis with localized peritonitis 01/18/20 16 01/02/2023 documented as of this encounter (statuses as of 11/13/2023) [facility] of [facility] Narrative* Problem Noted Date Resolved Date Routine general medical exam ination at a health care facility 08/07/2008 03/18/2012 Overview: 08/07/08 10/19/2010 documented as of this encounter (statuses as of 12/06/2022) [facility] of [facility] illness Narrative* Problem Noted Date Resolved Date Routine general medical exam ination at a health care facility 08/07/2008 03/18/2012 Overview: 08/07/08 10/19/2010 documented as of this encounter (statuses as of 12/13/2022) [facility] note* Diagnosis Hyperglycemia- Primary Other abnormal glucose Weight loss Loss of weight Screening for lipid disorders [facility] [place] [facility] Diagnosis Well adult exam- Primary Routine general medical examination at a health care facility Need for vaccination Need for prophylactic vaccination and inoculation against unspecified single disease Vitamin D deficiency Unspecified vitamin D deficiency Controlled type 2 diabetes mellitus without complication, without long-term current use of insulin ([facility]) Screening for colon cancer Special screening for malignant neoplasms, colon Paresthesia Disturbance of skin sensation Chloe albicans infection Candidiasis of unspecified site [facility] [place] [facility]* Diagnosis Controlled type 2 diabetes mellitus without complication, without long-term current use of insulin ([facility])- Primary documented in this encounter [facility] note* Diagnosis Controlled type 2 diabetes mellitus without complication, without long-term current use of insulin ([facility])- Primary Medication management Encounter for long-term (current) use of other medications [facility] [place] [facility] Diagnosis Controlled type 2 diabetes mellitus without complication, without long-term current use of insulin (HCC)- Primary [facility] [place] [facility] Diagnosis Controlled type 2 diabetes mellitus without complication, without long-term current use of insulin (HCC)- Primary Hypertriglyceridemia Pure hyperglyceridemia Borderline abnormal thyroid function test Nonspecific abnormal results of thyroid function study documented in this encounter [facility] note* Diagnosis Controlled type 2 diabetes mellitus without complication, without long-term current use of insulin (HCC) [facility] [place] [facility]* Diagnosis Controlled type 2 diabetes mellitus without complication, without long-term current use of insulin (HCC)- Primary MIKHAIL (obstructive sleep apnea) Obstructive sleep apnea (adult) (pediatric) Muscle weakness Muscle weakness (generalized) Hypertriglyceridemia Pure hyperglyceridemia Borderline abnormal thyroid function test Nonspecific abnormal results of thyroid function study documented in this encounter [facility] note* Diagnosis Chloe albicans infection Candidiasis of unspecified site [facility] Diagnosis Controlled type 2 diabetes mellitus without complication, without long-term current use of insulin (HCC)- Primary [facility] [place] [facility] Diagnosis Controlled type 2 diabetes mellitus without complication, without long-term current use of insulin (HCC)- Primary documented in this encounter [facility] note* Diagnosis MIKHAIL (obstructive sleep apnea)- Primary Obstructive sleep apnea (adult) (pediatric) [facility] [place] [facility]* Diagnosis Tinea corporis- Primary Dermatophytosis of the body [facility] [place] [facility]* Diagnosis Tinea corporis Dermatophytosis of the body [facility] [place] [facility] Diagnosis Controlled type 2 diabetes mellitus without complication, without long-term current use of insulin (HCC)- Primary Muscle cramps Cramp of limb Weakness of lower extremity, unspecified laterality Vitamin D deficiency Unspecified vitamin D deficiency Borderline abnormal thyroid function test Nonspecific abnormal results of thyroid function study Elevated blood pressure reading without diagnosis of hypertension documented in this encounter [facility] note* Diagnosis CSA (central sleep apnea)- Primary Unspecified sleep apnea MIKHAIL (obstructive sleep apnea) Obstructive sleep apnea (adult) (pediatric) RLS (restless legs syndrome) Restless legs syndrome (RLS) Controlled type 2 diabetes mellitus without complication, without long-term current use of insulin (HCC)- Primary [facility] [place] [facility]* Diagnosis Controlled type 2 diabetes mellitus without complication, without long-term current use of insulin (HCC)- Primary [facility] [place] [facility]* Diagnosis RLS (restless legs syndrome) Restless legs syndrome (RLS) Controlled type 2 diabetes mellitus without complication, without long-term current use of insulin (HCC)- Primary [facility] [place] [facility]* Diagnosis Central sleep apnea- Primary Unspecified sleep apnea MIKHAIL (obstructive sleep apnea) Obstructive sleep apnea (adult) (pediatric) Controlled type 2 diabetes mellitus without complication, without long-term current use of insulin (HCC)- Primary [facility] [place] [facility]* Diagnosis Controlled type 2 diabetes mellitus without complication, without long-term current use of insulin (HCC)- Primary [facility] [place] [facility]* Diagnosis Controlled type 2 diabetes mellitus without complication, without long-term current use of insulin (HCC)- Primary Vitamin D deficiency Unspecified vitamin D deficiency Hypertriglyceridemia Pure hyperglyceridemia Borderline abnormal thyroid function test Nonspecific abnormal results of thyroid function study Screening for lipid disorders [facility] Diagnosis Elevated alkaline phosphatase level- Primary Other nonspecific abnormal serum enzyme levels [facility] [place] [facility]* Diagnosis Central sleep apnea- Primary Unspecified sleep apnea MIKHAIL (obstructive sleep apnea) Obstructive sleep apnea (adult) (pediatric) Uses bilevel positive airway pressure (BPAP) ventilation at home RLS (restless legs syndrome) Restless legs syndrome (RLS) PLMD (periodic limb movement disorder) Periodic limb movement disorder [facility] [place] [facility]* Diagnosis Controlled type 2 diabetes mellitus without complication, without long-term current use of insulin (HCC)- Primary [facility] [place] [facility]* Diagnosis Central sleep apnea- Primary Unspecified sleep apnea MIKHAIL (obstructive sleep apnea) Obstructive sleep apnea (adult) (pediatric) RLS (restless legs syndrome) Restless legs syndrome (RLS) [facility] [place] [facility]* Diagnosis Elevated blood pressure reading without [...] and cartilage, unspecified [facility] [place] [facility]* Diagnosis Hypercalcemia- Primary Elevated alkaline phosphatase level Other nonspecific abnormal serum enzyme levels [facility] [place] [facility]* Diagnosis Elevated liver enzymes- Primary Other nonspecific abnormal serum enzyme levels [facility] [place] [facility]* Diagnosis Elevated liver enzymes Other nonspecific abnormal serum enzyme levels Controlled type 2 diabetes mellitus without complication, without long-term current use of insulin (HCC)- Primary [facility] [place] noteNo assessment information availableWBrecksville [facility] Work Phone: Evaluation note* Diagnosis Controlled type 2 diabetes mellitus without complication, without long-term current use of insulin (HCC)- Primary documented in this encounter [facility] note* Diagnosis Bacterial pneumonia- Primary Bacterial pneumonia, unspecified documented in this encounter [facility] note* Diagnosis Hypercalcemia- Primary documented in this encounter [facility] note* Diagnosis Osteopenia of multiple sites documented in this encounter [facility] note* Diagnosis Renal insufficiency- Primary Unspecified disorder of kidney and ureter Hypercalcemia documented in this encounter [facility] note* Diagnosis Bacterial pneumonia Bacterial pneumonia, unspecified [facility] (n[facility])No reason for referral information availableWBrecksville [facility] Work Phone: Reason for visit Narrative* Diagnostic Procedure Only (Routine) - Closed Specialty Diagnoses / Procedures Referred By Contac t Referred To Contact XR IMAGING Diagnoses Osteopenia of multiple sites Procedures DXA-AXIAL SKELETON DXA BONE DENSITY STUDY 1/> SITES AXIAL Edouard Moses MD [address] [place] [address] Phone: tel: fax: [place] [phone] Referral ID Status Reason Start Date Expiration Date V isits Requested Visits Authorized [id number] Closed Auto-Generate d Referral 01/12/2025 02/11/2026 1 1 [facility] Reason for Referral Specialty Diagnoses / Procedures Referred By Contac t Referred To Contact Diagnoses Controlled type 2 diabetes mellitus without complication, without long-term current use of insulin (HCC) Procedures CONSULT TO DIABETES EDUCATION DSME/MNT MEDICAL NUTRITION ASSMT&IVNTJ INDIV EACH 15 NC MEDICAL NUTRITION ASSMT&IVNTJ INDIV EACH 15 [place] MEDICAL NUTRITION ASSMT&IVNTJ INDIV EACH 15 [place] MEDICAL NUTRITION ASSMT&IVNTJ INDIV EACH 15 [place] Edouard Noland MD [address] [place] [address] [facility] [address] [place] [address] Referral ID Status Reason Start Date Expiration Date Visits Requested Visits Authorized [id number] Authorized PCP Requested Referral 01/02/2023 01/02/2024 1 1 Specialty Diagnoses / Procedures Referred By Contac t Referred To Contact General Surgery Diagnoses Screening for colon cancer Procedures CONSULT TO GENERAL SURGERY OFFICE/OUTPATIENT [facility] 60-74 MINUTES Edouard Noland MD [address] [place] [address] Referral ID Status Reason Start Date Expiration Date Visits Requested Visits Authorized [id number] Authorized PCP Requested Referral 01/02/2023 01/02/2024 1 1 Specialty Diagnoses / Procedures Referred By Contac t Referred To Contact Diagnoses MIKHAIL (obstructive sleep apnea) Procedures CONSULT TO SLEEP MEDICINE - ADULT OFFICE/OUTPATIENT [facility] 60-74 MINUTES Bobbi Hart APRN.CNP [address] [place] [address] Referral ID Status Reason Start Date Expiration Date Visits Requested Visits Authorized [id number] Authorized PCP Requested Referral 07/02/2023 07/01/2024 1 1 Specialty Diagnoses / Procedures Referred By Contac t Referred To Contact Diagnoses Controlled type 2 diabetes mellitus without complication, without long-term current use of insulin ([facility]) Edouard Noland MD [address] [place] [address] Referral ID Status Reason Start Date Expiration Date Visits Re quested Visits Authorized [id number] Closed 1 1 Chief Complaint and Reason for Visit Chief Complaint Admit Date CHEST PAIN January 21, 2025 10:1 9pm Family History Relationship Condition Age at Onset Recorded Date/T arianne Unknown Family History?No pertinent history Unkno wn January 14, 2016 4:44pm Advance Directives Advance Directive Response Recorded Date/ Time Do you have a Healthcare Power of Cattle Manager? No January 21, 2025 10:35pm Advance Directives No January 13 8:04pm Summary Purpose Additional Source Comments Source Comments (unrecognize d section and content) In the event this informatio n is protected by the Federal Confidentiality of Alcohol and Drug Abuse Patient Records regulations: The Federal rules restrict any use of the information to criminally investigate or prosecute any alcohol or drug abuse patient.[facility] Foundation[facility] the event this information is protected by the Federal Confidentiality of Alcohol and Drug Abuse Patient Records regulations: The Federal rules restrict any use of the information to criminally investigate or prosecute any alcohol or drug abuse patient.[facility] FoundationIn the event this information is protected by the Federal Confidentiality of Alcohol and Drug Abuse Patient Records regulations: The Federal rules restrict any use of the information to criminally investigate or prosecute any alcohol or drug abuse patient.[facility] FoundationIn the event this information is protected by the Federal Confidentiality of Alcohol and Drug Abuse Patient Records regulations: The Federal rules restrict any use of the information to criminally investigate or prosecute any alcohol or drug abuse patient.[facility] FoundationIn the event this information is protected by the Federal Confidentiality of Alcohol and Drug Abuse Patient Records regulations: The Federal rules restrict any use of the information to criminally investigate or prosecute any alcohol or drug abuse patient.[facility] FoundationIn the event this information is protected by the Federal Confidentiality of Alcohol and Drug Abuse Patient Records regulations: The Federal rules restrict any use of the information to criminally investigate or prosecute any alcohol or drug abuse patient.[facility] FoundationIn the event this information is protected by the Federal Confidentiality of Alcohol and Drug Abuse Patient Records regulations: The Federal rules restrict any use of the information to criminally investigate or prosecute any alcohol or drug abuse patient.[facility] FoundationIn the event this information is protected by the Federal Confidentiality of Alcohol and Drug Abuse Patient Records regulations: The Federal rules restrict any use of the information to criminally investigate or prosecute any alcohol or drug abuse patient.[facility] FoundationIn the event this information is protected by the Federal Confidentiality of Alcohol and Drug Abuse Patient Records regulations: The Federal rules restrict any use of the information to criminally investigate or prosecute any alcohol or drug abuse patient.[facility] FoundationIn the event this information is protected by the Federal Confidentiality of Alcohol and Drug Abuse Patient Records regulations: The Federal rules restrict any use of the information to criminally investigate or prosecute any alcohol or drug abuse patient.[facility] FoundationIn the event this information is protected by the Federal Confidentiality of Alcohol and Drug Abuse Patient Records regulations: The Federal rules restrict any use of the information to criminally investigate or prosecute any alcohol or drug abuse patient.[facility] FoundationIn the event this information is protected by the Federal Confidentiality of Alcohol and Drug Abuse Patient Records regulations: The Federal rules restrict any use of the information to criminally investigate or prosecute any alcohol or drug abuse patient.[facility] FoundationIn the event this information is protected by the Federal Confidentiality of Alcohol and Drug Abuse Patient Records regulations: The Federal rules restrict any use of the information to criminally investigate or prosecute any alcohol or drug abuse patient.[facility] FoundationIn the event this information is protected by the Federal Confidentiality of Alcohol and Drug Abuse Patient Records regulations: The Federal rules restrict any use of the information to criminally investigate or prosecute any alcohol or drug abuse patient.[facility] FoundationIn the event this information is protected by the Federal Confidentiality of Alcohol and Drug Abuse Patient Records regulations: The Federal rules restrict any use of the information to criminally investigate or prosecute any alcohol or drug abuse patient.[facility] FoundationIn the event this information is protected by the Federal Confidentiality of Alcohol and Drug Abuse Patient Records regulations: The Federal rules restrict any use of the information to criminally investigate or prosecute any alcohol or drug abuse patient.[facility] FoundationIn the event this information is protected by the Federal Confidentiality of Alcohol and Drug Abuse Patient Records regulations: The Federal rules restrict any use of the information to criminally investigate or prosecute any alcohol or drug abuse patient.[facility] FoundationIn the event this information is protected by the Federal Confidentiality of Alcohol and Drug Abuse Patient Records regulations: The Federal rules restrict any use of the information to criminally investigate or prosecute any alcohol or drug abuse patient.[facility] FoundationIn the event this information is protected by the Federal Confidentiality of Alcohol and Drug Abuse Patient Records regulations: The Federal rules restrict any use of the information to criminally investigate or prosecute any alcohol or drug abuse patient.[facility] FoundationIn the event this information is protected by the Federal Confidentiality of Alcohol and Drug Abuse Patient Records regulations: The Federal rules restrict any use of the information to criminally investigate or prosecute any alcohol or drug abuse patient.[facility] FoundationIn the event this information is protected by the Federal Confidentiality of Alcohol and Drug Abuse Patient Records regulations: The Federal rules restrict any use of the information to criminally investigate or prosecute any alcohol or drug abuse patient.[facility] FoundationIn the event this information is protected by the Federal Confidentiality of Alcohol and Drug Abuse Patient Records regulations: The Federal rules restrict any use of the information to criminally investigate or prosecute any alcohol or drug abuse patient.[facility] FoundationIn the event this information is protected by the Federal Confidentiality of Alcohol and Drug Abuse Patient Records regulations: The Federal rules restrict any use of the information to criminally investigate or prosecute any alcohol or drug abuse patient.[facility] FoundationIn the event this information is protected by the Federal Confidentiality of Alcohol and Drug Abuse Patient Records regulations: The Federal rules restrict any use of the information to criminally investigate or prosecute any alcohol or drug abuse patient.[facility] FoundationIn the event this information is protected by the Federal Confidentiality of Alcohol and Drug Abuse Patient Records regulations: The Federal rules restrict any use of the information to criminally investigate or prosecute any alcohol or drug abuse patient.[facility] FoundationIn the event this information is protected by the Federal Confidentiality of Alcohol and Drug Abuse Patient Records regulations: The Federal rules restrict any use of the information to criminally investigate or prosecute any alcohol or drug abuse patient.[facility] FoundationIn the event this information is protected by the Federal Confidentiality of Alcohol and Drug Abuse Patient Records regulations: The Federal rules restrict any use of the information to criminally investigate or prosecute any alcohol or drug abuse patient.[facility] FoundationIn the event this information is protected by the Federal Confidentiality of Alcohol and Drug Abuse Patient Records regulations: The Federal rules restrict any use of the information to criminally investigate or prosecute any alcohol or drug abuse patient.[facility] FoundationIn the event this information is protected by the Federal Confidentiality of Alcohol and Drug Abuse Patient Records regulations: The Federal rules restrict any use of the information to criminally investigate or prosecute any alcohol or drug abuse patient.[facility] FoundationIn the event this information is protected by the Federal Confidentiality of Alcohol and Drug Abuse Patient Records regulations: The Federal rules restrict any use of the information to criminally investigate or prosecute any alcohol or drug abuse patient.[facility] FoundationIn the event this information is protected by the Federal Confidentiality of Alcohol and Drug Abuse Patient Records regulations: The Federal rules restrict any use of the information to criminally investigate or prosecute any alcohol or drug abuse patient.[facility] FoundationIn the event this information is protected by the Federal Confidentiality of Alcohol and Drug Abuse Patient Records regulations: The Federal rules restrict any use of the information to criminally investigate or prosecute any alcohol or drug abuse patient.[facility] FoundationIn the event this information is protected by the Federal Confidentiality of Alcohol and Drug Abuse Patient Records regulations: The Federal rules restrict any use of the information to criminally investigate or prosecute any alcohol or drug abuse patient.[facility] FoundationIn the event this information is protected by the Federal Confidentiality of Alcohol and Drug Abuse Patient Records regulations: The Federal rules restrict any use of the information to criminally investigate or prosecute any alcohol or drug abuse patient.[facility] FoundationIn the event this information is protected by the Federal Confidentiality of Alcohol and Drug Abuse Patient Records regulations: The Federal rules restrict any use of the information to criminally investigate or prosecute any alcohol or drug abuse patient.[facility] FoundationIn the event this information is protected by the Federal Confidentiality of Alcohol and Drug Abuse Patient Records regulations: The Federal rules restrict any use of the information to criminally investigate or prosecute any alcohol or drug abuse patient.[facility] FoundationIn the event this information is protected by the Federal Confidentiality of Alcohol and Drug Abuse Patient Records regulations: The Federal rules restrict any use of the information to criminally investigate or prosecute any alcohol or drug abuse patient.[facility] FoundationIn the event this information is protected by the Federal Confidentiality of Alcohol and Drug Abuse Patient Records regulations: The Federal rules restrict any use of the information to criminally investigate or prosecute any alcohol or drug abuse patient.[facility] FoundationIn the event this information is protected by the Federal Confidentiality of Alcohol and Drug Abuse Patient Records regulations: The Federal rules restrict any use of the information to criminally investigate or prosecute any alcohol or drug abuse patient.[facility] FoundationIn the event this information is protected by the Federal Confidentiality of Alcohol and Drug Abuse Patient Records regulations: The Federal rules restrict any use of the information to criminally investigate or prosecute any alcohol or drug abuse patient.[facility] FoundationIn the event this information is protected by the Federal Confidentiality of Alcohol and Drug Abuse Patient Records regulations: The Federal rules restrict any use of the information to criminally investigate or prosecute any alcohol or drug abuse patient.[facility] FoundationIn the event this information is protected by the Federal Confidentiality of Alcohol and Drug Abuse Patient Records regulations: The Federal rules restrict any use of the information to criminally investigate or prosecute any alcohol or drug abuse patient.[facility] FoundationIn the event this information is protected by the Federal Confidentiality of Alcohol and Drug Abuse Patient Records regulations: The Federal rules restrict any use of the information to criminally investigate or prosecute any alcohol or drug abuse patient.[facility] FoundationIn the event this information is protected by the Federal Confidentiality of Alcohol and Drug Abuse Patient Records regulations: The Federal rules restrict any use of the information to criminally investigate or prosecute any alcohol or drug abuse patient.[facility] FoundationIn the event this information is protected by the Federal Confidentiality of Alcohol and Drug Abuse Patient Records regulations: The Federal rules restrict any use of the information to criminally investigate or prosecute any alcohol or drug abuse patient.[facility] FoundationIn the event this information is protected by the Federal Confidentiality of Alcohol and Drug Abuse Patient Records regulations: The Federal rules restrict any use of the information to criminally investigate or prosecute any alcohol or drug abuse patient.[facility] FoundationIn the event this information is protected by the Federal Confidentiality of Alcohol and Drug Abuse Patient Records regulations: The Federal rules restrict any use of the information to criminally investigate or prosecute any alcohol or drug abuse patient.[facility] FoundationIn the event this information is protected by the Federal Confidentiality of Alcohol and Drug Abuse Patient Records regulations: The Federal rules restrict any use of the information to criminally investigate or prosecute any alcohol or drug abuse patient.[facility] FoundationIn the event this information is protected by the Federal Confidentiality of Alcohol and Drug Abuse Patient Records regulations: The Federal rules restrict any use of the information to criminally investigate or prosecute any alcohol or drug abuse patient.[facility] FoundationIn the event this information is protected by the Federal Confidentiality of Alcohol and Drug Abuse Patient Records regulations: The Federal rules restrict any use of the information to criminally investigate or prosecute any alcohol or drug abuse patient.[facility] FoundationIn the event this information is protected by the Federal Confidentiality of Alcohol and Drug Abuse Patient Records regulations: The Federal rules restrict any use of the information to criminally investigate or prosecute any alcohol or drug abuse patient.[facility] Reason for Visit (unrecogniz ed section and [...] irritation. Specialty Diagnoses / Procedures [facility] Referred To Contact Diagnoses MIKHAIL (obstructive sleep apnea) Procedures CONSULT TO SLEEP MEDICINE - ADULT OFFICE/OUTPATIENT NEW HIGH MDM 60-74 MINUTES Bobbi Hart, STORE PERSON.[employer]UIT [employer] NUT FARMWORKER [address] [place] [address] Referral ID Status Reason Start Date Expiration Date V isits Requested Visits Authorized [id number] Closed PCP Requested Referral 07/02/2023 07/01/2024 1 [...] US Specialty Diagnoses / Procedures [facility] Referred To Contact US IMAGING Diagnoses Elevated liver enzymes Procedures US ABD RIGHT UPPER QUADRANT US ABDOMINAL REAL TIME W/IMAGE LIMITED Edouard Noland MD [address] [place] [address] Phone: tel: fax: [place] [phone] Referral ID Status Reason Start Date Expiration Date V isits Requested Visits Authorized [id number] Closed Auto-Generate d Referral 01/16/2025 02/15/2026 1 1 Reason Comments Patient Update Care Teams (unrecognized sec tion and content) Parimutuel Ticket Seller Relationship Specialty Start Date End Date Edouard Noland MD [address] [place], [place] [id number] PCP - General Family Medicine 03/18/12 Zoie Grijalva [address] [place] [address] 05/23/19 Parimutuel Ticket Seller Relationship Specialty Start Date End Date Edouard Noland MD [address] [place] [address] PCP - General Family Medicine 03/18/12 Zoie Grijalva [address] [place] [address] 05/23/19 Parimutuel Ticket Seller Relationship Specialty Start Date End Date Edouard Noland MD [address] [place] [address] PCP - General Family Medicine 03/18/[address]va [address] [place] [address] 05/23/19 Parimutuel Ticket Seller Relationship Specialty Start Date End Date Edouard Noland MD [address] [place] [address] PCP - General Family Medicine 03/18/[address]va [address] [place] [address] 05/23/19 Shane Rand, [facility] [address] [place] [address] Pharmacy 01/16/23 Parimutuel Ticket Seller Relationship Specialty Start Date End Date Edouard Noland MD [address] [place] [address] PCP - General Family Medicine 03/18/12 Zoie Grijalva [address] [place] [address] 05/23/19 Parimutuel Ticket Seller Relationship Specialty Start Date End Date Edouard Noland MD [address] [place] [address] PCP - General Family Medicine 03/18/12 [place] [address] 05/23/19 Shane Rand, [facility] [address] [place] [address] Pharmacy 01/16/23 Parimutuel Ticket Seller Relationship Specialty Start Date End Date Edouard Noland MD [address] [place] [address] PCP - General Family Medicine 03/18/12 Zoie Grijalva [address] [place] [address] 05/23/19 Shane Rand, [facility] [address] [place] [address] Pharmacy 01/16/23 Parimutuel Ticket Seller Relationship Specialty Start Date End Date Edouard Noland MD [address] [place] [address] PCP - General Family Medicine 03/18/12 Zoie Grijalva [address] [place] [address] 05/23/19 [facility] [address] [place] [address] Pharmacy 01/16/23 Parimutuel Ticket Seller Relationship Specialty Start Date End Date Edouard Noland MD [address] [place] [address] PCP - General Family Medicine 03/18/12 Zoie Grijalva [address] [place] [address] 05/23/19 [facility] [address] [place] [address] Pharmacy 01/16/23 Parimutuel Ticket Seller Relationship Specialty Start Date End Date Edouard Noland MD [address] [place] [address] PCP - General Family Medicine 03/18/12 Zoie Grijalva [address] [place] [address] 05/23/19 [facility] [address] [place] [address] Pharmacy 01/16/23 Parimutuel Ticket Seller Relationship Specialty Start Date End Date Edouard Noland MD [address] [place] [address] PCP - General Family Medicine 03/18/12 Zoie Grijalva [address] [place] [address] 05/23/19 [facility] [address] [place] [address] Pharmacy 01/16/23 Parimutuel Ticket Seller Relationship Specialty Start Date End Date Edouard Noland MD [address] [place] [address] PCP - General Family Medicine 03/18/12 Zoie Grijalva [address] [place] [address] 05/23/19 LuluNoble ford, [facility] [address] [place] [phone] Pharmacist Pharmacy 07/16/23 Parimutuel Ticket Seller Relationship Specialty Start Date End Date Edouard Noland MD [address] [place] [address] PCP - General Family Medicine 03/18/12 Zoie Grijalva [address] [place] [address] 05/23/19 [place] [address] [place] [address] Pharmacist Pharmacy 07/16/23 Parimutuel Ticket Seller Relationship Specialty Start Date End Date Edouard Noland MD [address] [place] [address] PCP - General Family Medicine 03/18/12 Zoie Grijalva [address] [place] [address] 05/23/19 Noble Lawson[place] [address] [place] [address] Pharmacist Pharmacy 07/16/23 Parimutuel Ticket Seller Relationship Specialty Start Date End Date Edouard Noland MD [address] [place] [address] PCP - General Family Medicine 03/18/12 Zoie Grijalva [address] [facility] [address] 05/23/19 Noble [place] [address] [place] [address] Pharmacist Pharmacy 07/16/23 Parimutuel Ticket Seller Relationship Specialty Start Date End Date Edouard Noland MD [address] [place] [address] PCP - General Family Medicine 03/18/12 Zoie Grijalva [address] [place] [address] 05/23/19 [place] [address] [place] [address] Pharmacist Pharmacy 07/16/23 Parimutuel Ticket Seller Relationship Specialty Start Date End Date Edouard Noland MD [address] [place] [address] PCP - General Family Medicine 03/18/12 Zoei Grijalva [address] [place] [address] 05/23/19 [place] [address] [place] [address] Pharmacist Pharmacy 07/16/23 Parimutuel Ticket Seller Relationship Specialty Start Date End Date Edouard Noland MD [address] [place] [address] PCP - General Family Medicine 03/18/12 Zoie Grijalva [address] [place] [address] 05/23/19 [place] [address] [place] [address] Pharmacist Pharmacy 07/16/23 Parimutuel Ticket Seller Relationship Specialty Start Date End Date Edouard Noland MD [address] [place] [address] PCP - General Family Medicine 03/18/12 Zoie Grijalva [address] [place] [address] 05/23/19 [place] [address] [place] [address] Pharmacist Pharmacy 07/16/23 Parimutuel Ticket Seller Relationship Specialty Start Date End Date Edouard Noland MD [address] [place] [address] PCP - General Family Medicine 03/18/12 Zoie Grijalva [address] [place] [address] 05/23/19 Noble Lawson, [facility] [address] [place] [address] Pharmacist Pharmacy 07/16/23 Parimutuel Ticket Seller Relationship Specialty Start Date End Date Edouard Noland MD [address] [place] [address] PCP - General Family Medicine 03/18/12 Zoie Grijalva [address] [place] [address] 05/23/19 LuluNoble ford, [facility] [address] [place] [phone] Pharmacist Pharmacy 07/16/23 Bobbi Hart, HARRY.FRUIT OR NUT FARMWORKER [address] [place] [address] Executive Consultant Family Medicine 07/07/24 Adrienne Castro STORE PERSON.[employer]UIT [employer] NUT FARMWORKER [address] [place] [address] Executive Consultant Family [facility] 07/07/24 Parimutuel Ticket Seller Relationship Specialty Start Date End Date Edouard Noland MD [address] [place] [address] PCP - General Family Medicine 03/18/12 Zoie Grijalva [address] [place] [address] 05/23/19 Noble Lawson, [facility] [address] [place] [phone] Pharmacist Pharmacy 07/16/23 Bobbi Hart, STORE PERSON.[employer]UIT [employer] NUT FARMWORKER [address] [place] [address] Executive Consultant Family Medicine 07/07/24 Adrienne Castro APRN.[employer] NUT FARMWORKER [address] [place] [address] [facility]/24 Parimutuel Ticket Seller Relationship Specialty Start Date End Date Edouard Noland MD [address] [place] [address] PCP - General Family Medicine 03/18/12 Zoie Grijalva [address] [place] [address] 05/23/19 [facility] [address] [place] [phone] Pharmacist Pharmacy 07/16/23 Bobbi Hart APRN.FRUIT OR NUT FARMWORKER [address] [place] [address] [facility] 07/07/24 Adrienne Castro STORE PERSON.FRUIT OR NUT FARMWORKER [address] [place] [address] [facility] 07/07/24 Parimutuel Ticket Seller Relationship Specialty Start Date End Date Edouard Noland MD [address] [place] [address] PCP - General Family Medicine 03/18/12 Zoie Grijalva [address] [place] [address] 05/23/19 [facility] [address] [place] [phone] Pharmacist Pharmacy 07/16/23 Bobbi Hart APRN.FRUIT [employer] NUT FARMWORKER [address] [place] [address] Executive Consultant [facility] 07/07/24 Adrienne Castro STORE PERSON.FRUIT OR NUT FARMWORKER [address] [place] [address] [facility] 07/07/24 Parimutuel Ticket Seller Relationship Specialty Start Date End Date Edouard Noland MD [address] [place] [address] PCP - General Family Medicine 03/18/12 Zoie Grijalva [address] [place] [address] 05/23/[address] [phone] Pharmacist Pharmacy 07/16/23 Bobbi Hart APRN.FR[employer] N[employer] FARMWORKER [address] [place] [address] [facility] 07/07/24 Adrienne Castro STORE PERSON.FRUIT [employer] NUT FARMWORKER [address] [place] [address] [facility] 07/07/24 Parimutuel Ticket Seller Relationship Specialty Start Date End Date Edouard Noland MD [address] [place] [address] PCP - General Family Medicine 03/18/12 Zoie Grijalva [address] [place] [address] 05/23/[address] [phone] Pharmacist Pharmacy 07/16/23 Bobbi Hart APRN.FR[employer] N[employer] FARMWORKER [address] [place], [place] [address] Executive Consultant [facility] 07/07/24 Adrienne Castro APRN.FRUIT OR NUT FARMWORKER [address] [place] [address] Executive Consultant [facility] 07/07/24 Parimutuel Ticket Seller Relationship Specialty Start Date End Date Edouard Noland MD [address] [place] [address] PCP - General Family Medicine 03/18/12 Zoie Grijalva [address] [place] [address] 05/23/[address] [phone] Pharmacist Pharmacy 07/16/23 Bobbi Hart APRN.[employer]UIT [employer] NUT FARMWORKER [address] [place] [address] Executive Consultant [facility] 07/07/24 Adrienne Castro STORE PERSON.FRUIT OR NUT FARMWORKER [address] [place] [address] [facility]/07/24 Parimutuel Ticket Seller Relationship Specialty Start Date End Date Edouard Noland MD [address] [place] [address] PCP - General Family Medicine 03/18/12 Zoie Grijalva [address] [place] [address] 05/23/[address] [phone] Pharmacist Pharmacy 07/16/23 Bobbi Hart APRN.FRUIT OR NUT FARMWORKER [address] [place] [address] Executive Consultant [facility] 07/07/24 Adrienne Castro APRN.FRUIT OR NUT FARMWORKER [address] [place] [address] Executive Consultant [facility] 07/07/24 Parimutuel Ticket Seller Relationship Specialty Start Date End Date Edouard Noland MD [address] [place] [address] PCP - General Family Medicine 03/18/12 Zoie Grijalva [address] [place] [address] 05/23/[address] [phone] Pharmacist Pharmacy 07/16/23 Bobbi Hart APRN.FRUIT OR NUT FARMWORKER [address] [place] [address] Executive Consultant [facility] 07/07/24 Adrienne Castro APRN.FRUIT OR NUT FARMWORKER [address] [place] [address] [facility] 07/07/24 Parimutuel Ticket Seller Relationship Specialty Start Date End Date Edouard Noland MD [address] [place] [address] PCP - General Family Medicine 03/18/12 Zoie Grijalva [address] [place] [address] 05/23/[address] [phone] Pharmacist Pharmacy 07/16/23 Bobbi Hart APRN.FRUIT [employer] NUT FARMWORKER [address] [place] [address] Executive Consultant [facility] 07/07/24 Adrienne Castro APRN.FRUIT OR NUT FARMWORKER [address] [place] [address] Executive Consultant [facility] 07/07/24 Parimutuel Ticket Seller Relationship Specialty Start Date End Date Edouard Noland MD [address] [place] [address] PCP - General Family Medicine 03/18/12 Zoie Grijalva [address] [place] [address] 05/23/[address] [phone] Pharmacist Pharmacy 07/16/23 Bobbi Hart APRN.FRUIT OR NUT FARMWORKER [address] [place] [address] [facility] 07/07/24 Adrienne Castro APRN.FRUIT OR NUT FARMWORKER [address] [place] [address] [facility] 07/07/24 Parimutuel Ticket Seller Relationship Specialty Start Date End Date Edouard Noland MD [address] [place] [address] PCP - General Family Medicine 03/18/12 Zoie Grijalva [address] [facility] [address] 05/23/[address] [phone] Pharmacist Pharmacy 07/16/23 Bobbi Hart APRN.FRUIT OR NUT FARMWORKER [address] [facility] [address] [facility] 07/07/24 Adrienne Castro STORE PERSON.FRUIT OR NUT FARMWORKER [address] [place] [address] [facility] 07/07/24 Team Status: Active Member Role Status Dates Dr. Edouard Noland MD Primary Care Provider Active Team Status: Inactive Member Role Status Dates Dr. Edouard Noland MD Primary Care Provider Active Start: January 21, 2025 End: January 22, 2025 Dr. Elliot Caceres DO Emergency Provider Active Start: January 21, 2025 End: January 22, 2025 Parimutuel Ticket Seller Relationship Specialty Start Date End Date Edouard Noland MD [address] [place] [address] PCP - General Family Medicine 03/18/12 Zoie Grijalva [address] [facility] [address] 05/23/19 LuluNoble ford, [facility] [address] [place] [phone] Pharmacist Pharmacy 07/16/23 Bobbi Hart, STORE PERSON.FRUIT OR NUT FARMWORKER [address] [place] [address] [facility] 07/07/24 Adrienne Castro STORE PERSON.FRUIT OR NUT FARMWORKER [address] [place] [address] [facility] 07/07/24 Parimutuel Ticket Seller Relationship Specialty Start Date End Date Edouard Noland MD [address] [place], [place] [address] PCP - General Family Medicine 03/18/12 Zoie Grijalva [address] [place] [address] 05/23/[address] [phone] Pharmacist Pharmacy 07/16/23 Bobbi Hart APRN.FRUIT OR NUT FARMWORKER [address] [place] [address] Executive Consultant Family [facility] 07/07/24 Adrienne Castro APRN.FRUIT OR NUT FARMWORKER [address] [place] [address] Executive Consultant [facility] 07/07/24 Parimutuel Ticket Seller Relationship Specialty Start Date End Date Edouard Noland MD [address] [place] [address] PCP - General Family Medicine 03/18/12 Zoie Grijalva [address] [place] [address] 05/23/[address] [phone] Pharmacist Pharmacy 07/16/23 Bobbi Hart APRN.FRUIT OR NUT FARMWORKER [address] [place] [address] Executive Consultant Family [facility] 07/07/24 Adrienne Castro APRN.FRUIT OR NUT FARMWORKER [address] [place] [address] Executive Consultant Family [facility] 07/07/24 Parimutuel Ticket Seller Relationship Specialty Start Date End Date Edouard Noland MD [address] [place] [address] PCP - General Family Medicine 03/18/12 Zoie Grijalva [address] [place] [address] 05/23/[address] [phone] Pharmacist Pharmacy 07/16/23 Bobbi Hart APRN.FRUIT OR NUT FARMWORKER [address] [place] [address] Executive Consultant [facility] 07/07/24 Adrienne Castro APRN.FRUIT OR NUT FARMWORKER [address] [place] [address] [facility] 07/07/24 Parimutuel Ticket Seller Relationship Specialty Start Date End Date Edouard Noland MD [address] [place] [address] PCP - General Family Medicine 03/18/12 Zoie Grijalva [address] [place] [address] 05/23/[address] [phone] Pharmacist Pharmacy 07/16/23 Bobbi Hart APRN.FRUIT OR NUT FARMWORKER [address] [place] [address] [facility] 07/07/24 Adrienne Castro APRN.FRUIT OR NUT FARMWORKER [address] [place] [address] [facility] 07/07/24 Goals (unrecognized section and content) Goals may be documented in a n alternate section (unrecognized sect ion and content) No Status Records FoundNo Status Records FoundNo Status Records Found INFORMATION SOURCE (unrecogn ized section and content) DATE CREATED AUTHOR 01/28/2025 [facility] DATE CREATED AUTHOR AUTHOR'S ERLINDA ATSKYE 02/07/2025 [facility] DATE CREATED AUTHOR AUTHOR'S ORGANSARAH ATION 02/23/2025 [facility] FOR RECORDS PERTAINING TO PATIENTS WHO [...] BE BASED ON THE PRIMARY CLINICAL RECORDS. [facility] [employer] [facility] provides no warranty or guarantee of the accuracy or completeness of information in this document.
[2025-02-26] MEDS: Azithromycin 500 MG in 0.9% Normal Saline (250mL Bag) 250 ML 255 MG IV ×2 (02:08→22:48)
[2025-02-26 02:25] LABS: Magnesium 1.9 mg/dL (1.5-2.2)
[2025-02-26 02:34] LABS: HIV Nonreactive (Nonreactive)
--- OUTSIDE RECORDS SUMMARY | 2025-02-26 02:45 | XMS RPT_ITS | CCD ---
Author Organization [facility] Care Team Providers Care Engineering Supervisor Name Role Phone Edouard Noland MD Primary Care Provider Zoie Grijalva Unavailable Jairo [facility], [place] Unavailable Zoie Grijalva Unavailable Unavailable [facility] [place] Unavailable Edouard Noland MD Primary Care Provider Haagen NURSE TRANSPLANT.COST MANAGERBobbi Unavailable Suppan NURSE TRANSPLANT.COST MANAGER, Adrienne A Unavailable [phone] Suppan NURSE TRANSPLANT.COST MANAGER, Adrienne A Unavailable Dr. Edouard Noland MD Primary Care Provider Dr. Elliot Caceres DO Emergency Provider Camryn PICK UP TRUCK DRIVER, Jh Briscoe Attending Unavailable Edouard Noland Primary [...] Unavailable EDOUARD NOLAND Primary Care Unavailable EDOUARD NOALND Primary Care Unavailable EDOUARD NOLAND Attending Unavailable [...] sources) Amoxicillin; Translations: [AMOXICILLIN] Drug Allergy 5 [facility] Work Phone: (20 sources) Animal Dander; Translations: [ANIMAL DANDER] Drug Intolerance 2 Intolerance [facility] Work Phone: (20 sources) Ketoconazole; Translations: [KETOCONAZOLE] Drug Allergy 3 [facility] (1 source) Penicillins Allergy to substance 5 [facility] (1 source) Penicillins Drug allergy (disorder) 5 [facility] Repository Medications Current Medications Medication [...] complication, without long-term current use of insulin ([facility]) Glucose Meter of Choice - Kit - Dx: Type 2 DM - Controlled E11.9 1 Each 0 01/02/2023 01/03/2023 Active Comment on above: Glucose Meter of Cho ice - Kit - Dx: Type 2 DM - Controlled E11.9 Blood-Glucose Meter,Continuous (FREESTYLE WYATT 3 READER) misc (8 sources) Start: 07-02-2025 Blood-Glucose Meter,Continuous (FREESTYLE WYATT 3 READER) [facility] Indications: Controlled type 2 diabetes mellitus without [...] ST 16/11 cmH2O with BUR [address] [facility] 1 Each 10/09/2024 02/24/2052 Active Start: 09-01-2024 End: 01-17-2052 CPAP/BIPAP/OTHER Bilevel ST 14/10 cmH2O with BUR 12 BPM [facility] Each 09/01/2024 01/17/2052 Active Start: 05-27-2024 End: 09-01-2024 CPAP/BIPAP/OTHER biPAP ST 13 /9 cmH2O with BUR 12 bpm [facility] [place] 1 Each 05/27/2024 09/01/2024 Discontinued Start: 05-27-2024 End: 10-12-2051 CPAP/BIPAP/OTHER biPAP ST 13 /9 cmH2O with BUR 12 bpm [facility] 1 Each 05/27/2024 10/12/2051 Active 0.5 ml [...] Comment on above: Take 1 capsule by [facility] once daily. Magnesium (20 sources) End: [...] tablet by mouth once daily. Active nystatin 096091 unt/ml topical cream (20 sources) Polyene Antifungal [...] VIT D1,25 DIHYDROXY 91.1 pg/mL High 19.9-79.3 [facility] Comment on above: Order Comment: Speci men Type: BLOOD SPECIMENOrdering Facility: [facility] Address: [address] [place] [address] Performed By: #### 1 649-3, 1988-09 ####[facility] LABCLIA [id number] [place] [address] [place] 25(OH)D3 [facility] 2024 25-hydroxyvitamin D3 [Mass/Vol] 26.5 ng/mL Low 31.0-80.0 [facility] Comment on above: Order Comment: Speci men Type: BLOOD SPECIMENOrdering Facility: [facility] Address: [address] [place] [address] Performed By: #### 1 6493, 1988-09 ####[facility] LABCLIA [id number] [place] [id number] [place] Basic metabolic 2000 panelon 02-10-2025 Anion gap [Moles/Vol] 12 mmol/L Normal 8-15 [facility] Comment on above: Order Comment: Speci men Type: BLOOD SPECIMEN [facility]ing Facility: [facility] Address: [address] [place] [address] Performed By: #### 5 5454-3 #### [facility] CLIA [id number] [address] [place] [address] [place] Calcium [Mass/Vol] 11.3 mg/dL High 8.5-10.2 [facility] Comment on above: Order Comment: Speci men Type: BLOOD SPECIMEN [facility]ing Facility: [facility] Address: [address] [place] [address] Performed By: #### 5 5454-3 #### [facility] CLIA [id number] [address] [place] [address] [place] Chloride [Moles/Vol] 102 mmol/L Normal 98-107 [facility] Comment on above: Order Comment: Speci men Type: BLOOD SPECIMEN [facility]ing Facility: [facility] Address: [address] [place] [address] Performed By: #### 5 5454-3 #### [facility] CLIA [id number] [address] [place] [address] [place] CO2 [Moles/Vol] 23 mmol/L Normal 22-30 [facility] Comment on above: Order Comment: Speci men Type: BLOOD SPECIMEN [facility]ing Facility: [facility] Address: [address] [place] [address] Performed By: #### 5 5454-3 #### [facility] CLIA [id number] [address] [place], [place] [id number] [place] Creatinine [Mass/Vol] 1.37 mg/dL High 0.73-1.22 [facility] Comment on above: Order Comment: Jhony brunner Type: BLOOD SPECIMEN [facility]: [facility] Address: [address] [place] [address] Performed By: #### 5 5454-3 #### [facility] CLIA [id number] [address] [place] [address] [place] eGFRcr SerPlBld CKD-EPI 2020 62 mL/min/1.73m??? Normal >=60 [facility] Comment on above: Order Comment: Jhony brunner Type: BLOOD SPECIMEN [facility]: [facility] Address: [address] [place] [address] Result Comment: Lynne mated Glomerular Filtration Rate [...] GFR. Performed By: #### 5 5454-3 #### [facility] CLIA [id number] [address] [place] [address] [place] Glucose [Mass/Vol] 136 mg/dL High 74-99 [facility] Comment on above: Order Comment: Jhony brunner Type: BLOOD SPECIMEN [facility]: [facility] Address: [address] [place] [address] Result Comment: The [place] Diabetes Association (ADA) provides guidance for cutoff [...] Standards of Medical Care in Diabetes 2016, [place] Diabetes Association. Diabetes Care. 2016.39(Suppl 1). Performed By: #### 5 5454-3 #### [facility] CLIA [id number] [address] [place] [address] [place] Potassium [Moles/Vol] 3.9 mmol/L Normal 3.7-5.1 [facility] Comment on above: Order Comment: Speci men Type: BLOOD SPECIMEN [facility]ing [facility]: [facility] Address: [address] [place] [address] Performed By: #### 5 5454-3 #### [facility] CLIA [id number] [address] [place] [address] [place] Sodium [Moles/Vol] 137 mmol/L Normal 136-144 [facility] Comment on above: Order Comment: Speci men Type: BLOOD SPECIMEN [facility]ing [facility]: [facility] Address: [address] [place] [address] Performed By: #### 5 5454-3 #### [facility] CLIA [id number] [address] [place] [address] [place] Urea nitrogen [Mass/Vol] 18 mg/dL Normal 9-24 [facility] Comment on above: Order Comment: Speci men Type: BLOOD SPECIMEN [facility]ing Facility: [facility] Address: [address] [place] [address] Performed By: #### 5 5454-3 #### [facility] CLIA [id number] [address] [place] [address] [place] PTH RELATED PEPTIDEon 2024 PTH RELATED PEPTIDE 3.2 pmol/L High 0.0-2.3 [facility] Comment on above: Order Comment: Speci men Type: BLOOD SPECIMENOrdering Facility: [facility] Address: [address] [place] [address] Result Comment: INTE RPRETIVE INFORMATION: Parathyroid Hormone-Related Peptide This test was developed and its performance characteristics determined by [facility]. It has not been cleared or approved by the US Food and Drug Administration. This test was performed in a CLIA certified laboratory and is intended for clinical purposes. Performed By: [facility] [address] [place] [address] Consumer Relations Complaint Clerk: Bg Merida MD, PhD IA Number: [id number] Performed By: #### P [facility] ####[facility]ORATORIES[facility] [id number] [place] [address] BD DXA - AXIAL SKELETONon BD DXA [...] years, Gender: Male SCANNER INFORMATION: DXA Model: [employer] C [id number] Date Scanned: 02/03/2025 11:33 AM CLINICAL HISTORY: [...] had a previous bone density in the [facility] or the previous bone density was performed on a different DXA machine (new, updated model or different location) within the [facility]. VERTEBRAL FRACTURE ASSESSMENT Not performed. TRABECULAR [...] FOR MORE INFORMATION ABOUT DIAGNOSIS AND TREATMENT: [facility] for Osteoporosis and Metabolic Bone Disease:? www.ccf.org/arthritis/oste o National Osteoporosis Foundation:? www.nof.org International Society of Clinical Densitometry www.iscd.org Roof Slater: STEPHAN Transcribe Date/Time: Feb 06 2025 6:59A Dictated by : YAMILETH ZAMAN MD This examination was interpreted and the report reviewed and electronically signed by: YAMILETH ZAMAN MD on Feb 06 2025 7:01AM EST [id number] -0.9 Normal [facility] BD DXA TRABECLR BONE SCORE ( [...] years, Gender: Male SCANNER INFORMATION: DXA Model: [employer] C [id number] Date Scanned: 02/03/2025 11:33 AM CLINICAL HISTORY: [...] had a previous bone density in the [facility] or the previous bone density was performed on a different DXA machine (new, updated model or different location) within the [facility]. VERTEBRAL FRACTURE ASSESSMENT Not performed. TRABECULAR [...] FOR MORE INFORMATION ABOUT DIAGNOSIS AND TREATMENT: [facility] Osteoporosis and Metabolic Bone Disease:? www.ccf.org/arthritis/oste o National Osteoporosis Foundation:? www.nof.org International Society of Clinical Densitometry www.iscd.org Roof Slater: STEPHAN Transcribe Date/Time: Feb 06 2025 6:59A Dictated by : YAMILETH ZAMAN MD This examination was interpreted and the report reviewed and electronically signed by: YAMILETH ZAMAN MD on Feb 06 2025 7:01AM EST [id number] -0.9 [facility] [place] 02-02-2025 CNPN Telephone (FAMPWS) -- TRESA MUÑOZ ([id number]) 1970 M Date Time Provider Department 02/02/25 [...] Fully Assessed Reason for Visit: Patient Question [8887] Primary Visit Diagnosis:Bacterial pneumonia [J15.9] Order(s):XR CHEST 2V FRONTAL/LAT [2458659] Order #: [id number] FUTURE Prescriptions as of 02/02/2025 - Blood-Glucose Sensor (FREESTYLE WYATT 3 PLUS SENSOR) benjy Apply new sensor every fourteen (14) days to upper arm. - Blood-Glucose Meter,Continuous (FREESTYLE WYATT 3 READER) [facility] Use to check blood sugar at least [...] ST 16/11 cmH2O with BUR [address] [facility] - gabapentin (NEURONTIN) 300 mg capsule [...] Encounter Status:Closed by MICHELLE JACKSON on 02/02/25 [facility] [place] [facility] TR[facility]Z ([id number]) 1970 M Date Time Provider Department 01/28/25 [...] message to return call and ask for packing clerk can assit with scheduling for the Endocrine [...] [E83.52] Order(s):PTH RELATED PEPTIDE [SQPTHPEP] Order #: [id number] FUTURE VITAMIN D 25 HYDROXY [SQVITD] Order #: [id number] FUTURE VITAMIN D1 25-DIHYDR [ZYADZ277] Order #: [id number] FUTURE BASIC METABOLIC PANEL [SQBMP] Order #: [id number] FUTURE Prescriptions as of 02/03/2025 - Blood-Glucose Sensor (FREESTYLE WYATT 3 PLUS SENSOR) benjy Apply new sensor every fourteen (14) days to upper arm. - Blood-Glucose Meter,Continuous (FREESTYLE WYATT 3 READER) [facility] Use to check blood sugar at least [...] ST 16/11 cmH2O with BUR [address] [facility] - gabapentin (NEURONTIN) 300 mg capsule [...] Status:Closed by KEIRA LOOMIS on 02/03/25 Normal [facility] Emergency Department Summary on 01-22-[address] [facility] Medical Records Department [address] [place] [address] Emergency Department Summary 01/22/25 MR#: [id number] Acct: [id number] Name: TRESA MUÑOZ Rep #: [id number] : 1970 54 From: Elliot Caceres DO [...] such as COPD emphysema smoking or vaping. [facility] Medical History (Updated 01/25/25 @ 02:24 [...] 5/5 throughout (more content not included)... Normal [facility] L499.0042on 01-22-2025 Trop T High Sen 16 ng/L Normal <=22 [facility] Comment on above: Performed By: #### L 499.0042 #### [facility] Laboratory [address] [facility], [address] L499.0043on 01-22-2025 Trop T High Sen Normal <=22 [facility] Comment on above: Result Comment: Adithya mcdermott via OM: Ordered Performed By: #### L 499.0043 #### [facility] [address] [facility], [address] Troponin T.cardiac [Mass/vol ume] in Serum or Plasma by High sensitivity methodOrdered By: Elliot Caceres on 01-22-2025 Troponin T.cardiac High sensitivity method [Mass/Vol] 16 ng/L <22 [facility] Absolute lymphocyte countOrd ered By: Elliot Caceres on 01-21-2025 Lymphocytes Auto (Unsp spec) [#/Vol] 0.69 10*3/uL Low 0.83-4.51 [facility] Absolute neutrophil countOrd ered By: Elliot Caceres on 01-21-2025 Neutrophils (Bld) [#/Vol] 2.5 10*3/uL 2.0-7.7 [facility] Anion gap in Serum or Plasma Ordered By: Elliot Caceres on 01-21-2025 Anion gap [Moles/Vol] 14 mmol/L 5- [facility] Automated lymphocyte count a s percentage of total leukocytesOrdered By: Elliot Caceres on 01-21-2025 Lymphocytes/100 WBC Auto (Unsp spec) 16.9 % Low 19-41 [facility] BUN/creatinine ratioOrdered By: Elliot Caceres on 01-21-2025 Urea nitrogen/Creatinine [Mass ratio] 15.7 mg/mg 10- [facility] Basic Metabolic Profile (BMP )on 01-21-2025 BUN/CRE 15.7 RATIO Normal - [facility] Comment on above: Performed By: #### L 500.2500, L501.4021, L100.0100 #### [facility] [address] [place], [address] Calcium [Mass/Vol] 12.5 mg/dL High 7.6-11.0 [facility] Comment on above: Performed By: #### L 500.2500, L501.4021, L100.0100 #### [facility] [address] [place], [address] Chloride [Moles/Vol] 101 mmol/L Normal 98-108 [facility] Comment on above: Performed By: #### L 500.2500, L501.4021, L100.0100 #### [facility] [address] [place], [address] CO2 [Moles/Vol] 23.3 mmol/L Normal 21.0-32.0 [facility] Comment on above: Performed By: #### L 500.2500, L501.4021, L100.0100 #### [facility] [address] [place], [address] Creatinine [Mass/Vol] 1.41 mg/dL High 0.70-1.20 [facility] Comment on above: Performed By: #### L 500.2500, L501.4021, L100.0100 #### [facility] [address] [place], [address] ECRCL 71.25 ml/min Normal 50-250 [facility] Comment on above: Performed By: #### L 500.2500, L501.4021, L100.0100 #### [facility] [address] [place], [address] GAP 14 Normal 5-15 [facility] Comment on above: Performed By: #### L 500.2500, L501.4021, L100.0100 #### [facility] [address] [place], [address] GFR/1.73 sq M.predicted among non-blacks MDRD (S/P/Bld) [Vol rate/Area] 60 mL/min/{1.73_m2} Normal >60 [facility] Comment on above: Result Comment: mL/m in/1.73m2 CKD-EPI Creatinine Equation (2020) Performed By: #### L 500.2500, L501.4021, L100.0100 #### [facility] [address] [place], [address] Glucose [Mass/Vol] 127 mg/dL High 70-99 [facility] Comment on above: Performed By: #### L 500.2500, L501.4021, L100.0100 #### [facility] [address] [place], [address] Potassium [Moles/Vol] 4.1 mmol/L Normal 3.3-5.1 [facility] Comment on above: Performed By: #### L 500.2500, L501.4021, L100.0100 #### [facility] [address] [place], [address] Sodium [Moles/Vol] 138 mmol/L Normal 133-145 [facility] Comment on above: Performed By: #### L 500.2500, L501.4021, L100.0100 #### [facility] [address] [place], [address] Urea nitrogen [Mass/Vol] 22 mg/dL High 4-19 [facility] Comment on above: Performed By: #### L 500.2500, L501.4021, L100.0100 #### [facility] [address] [place], [address] Basophil percentageOrdered B y: Elliot Caceres on 01-21-2024 Basophils/100 WBC (Bld) 0.7 % 0-1 [facility] CBC W/Diff, Automatedon 12-29 Absolute Lymph 0.69 X10 3/uL Low 0.83-4.51 [facility] Comment on above: Performed By: #### L 500.2500, L501.4021, L100.0100 #### [facility] [address] [place], [address] Absolute Neut 2.5 X10 3/uL Normal 2.0-7.7 [facility] Comment on above: Performed By: #### L 500.2500, L501.4021, L100.0100 #### [facility] [address] [place], [address] Basophils/100 WBC (Bld) 0.7 % Normal 0-1 [facility] Comment on above: Performed By: #### L 500.2500, L501.4021, L100.0100 #### [facility] [address] [place], [address] Eosinophils/100 WBC (Bld) 5.9 % High 0-5 [facility] Comment on above: Performed By: #### L 500.2500, L501.4021, L100.0100 #### [facility] [address] [place], [address] Erythrocyte distribution width (RBC) [Ratio] 13.0 % Normal 11.6-14.6 [facility] Comment on above: Performed By: #### L 500.2500, L501.4021, L100.0100 #### [facility] [address] [place], [address] Hematocrit (Bld) [Volume fraction] 37.5 % Low 40-54 [facility] Comment on above: Performed By: #### L 500.2500, L501.4021, L100.0100 #### [facility] [address] [place], [address] Hemoglobin (Bld) [Mass/Vol] 13.2 g/dL Normal 13.0-16.5 [facility] Comment on above: Performed By: #### L 500.2500, L501.4021, L100.0100 #### [facility] [address] [place], [address] IG% 0.500 Normal 0.0-0.9 [facility] Comment on above: Result Comment: IG% - Immature Granulocytes (promyelocytes, myelocytes and metamyelocytes) > 1% indicates that a LEFT SHIFT is Present. Performed By: #### L 500.2500, L501.4021, L100.0100 #### [facility] [address] [place], [address] Lymphocytes/100 WBC (Bld) 16.9 % Low 19-41 [facility] Comment on above: Performed By: #### L 500.2500, L501.4021, L100.0100 #### [facility] [address] [place], [address] MCH (RBC) [Entitic mass] 27.7 pg Normal 27.0-32.0 [facility] Comment on above: Performed By: #### L 500.2500, L501.4021, L100.0100 #### [facility] [address] [place], [address] MCHC (RBC) [Mass/Vol] 35.2 g/dL Normal 32-36 [facility] Comment on above: Performed By: #### L 500.2500, L501.4021, L100.0100 #### [facility] [address] [place], [address] MCV (RBC) [Entitic vol] 78.8 fL Low 80-94 [facility] Comment on above: Performed By: #### L 500.2500, L501.4021, L100.0100 #### [facility] [address] [place], [address] Monocytes/100 WBC (Bld) 14.0 % High 0-10 [facility] Comment on above: Performed By: #### L 500.2500, L501.4021, L100.0100 #### [facility] [address] [place], [address] Neutrophils/100 WBC (Bld) 62.0 % Normal 47-70 [facility] Comment on above: Performed By: #### L 500.2500, L501.4021, L100.0100 #### [facility] [address] [place], [address] Nucleated RBC (Bld) [#/Vol] 0 10*3/uL Normal 0-5 [facility] Comment on above: Performed By: #### L 500.2500, L501.4021, L100.0100 #### [facility] [address] [place], [address] Platelet mean volume (Bld) [Entitic vol] 9.7 fL Normal 6.2-12.0 [facility] Comment on above: Performed By: #### L 500.2500, L501.4021, L100.0100 #### [facility] [address] [place], [address] Platelets (Bld) [#/Vol] 185 10*3/uL Normal 150-450 [facility] Comment on above: Performed By: #### L 500.2500, L501.4021, L100.0100 #### [facility] [address] [place], [address] RBC (Bld) [#/Vol] 4.76 10*6/uL Normal 4.6-6.2 [facility] Comment on above: Performed By: #### L 500.2500, L501.4021, L100.0100 #### [facility] [address] [place], [address] RDW SD 36.5 fl Normal 35.1-43.9 [facility] Comment on above: Performed By: #### L 500.2500, L501.4021, L100.0100 #### [facility] [address] [place], [address] WBC (Bld) [#/Vol] 4.1 10*3/uL Low 4.4-11.0 [facility] Comment on above: Performed By: #### L 500.2500, L501.4021, L100.0100 #### [facility] [address] [place], [address] Carbon dioxide, total [Moles /volume] in Central venous bloodOrdered By: Elliot Caceres on 01-21-2025 CO2 [Moles/Vol] 23.3 mmol/L 21.0-32.0 [facility] Chest 1 Viewon 01-21-2025 Chest 1 View [facility] Imaging Services [address] [place] [address] Chest 1 View MR#: [id number] Acct: [id number] Name: TRESA MUÑOZ Rep #: [id number] : 1970 M 54 From: Rafi arechiga MD PCP: Dr. Edouard Noland MD Status: [facility] Study: Chest 1 View Date of Exam: 01/21/25 Exam# [id number] Ordering Dr: Elliot Caceres DO PROCEDURE: CHEST [...] perihilar and lower lobe infiltrates. Reading Location: [place] [address] CC: Dr. Edouard Noland MD; Elliot Caceres DO Roof Slater: Signed Normal [facility] Chest 1 View (Portable)on Chest 1 View (Portable) [facility] Imaging Services [address] [place] [address] Chest 1 View (Portable) MR#: [id number] Acct: [id number] Name: TRESA MUÑOZ Rep #: [id number] : 1970 M 54 From: Lucero Dixon nd, MD PCP: Dr. Edouard Noland MD Status: [facility] Study: Chest 1 View (Portable) Date of Exam: 01/21/25 Exam# [id number] Ordering Dr: Elliot Caceres DO PROCEDURE: CHEST [...] may reflect pneumonitis or pneumonia. Reading Location: [id number] CC: Dr. Edouard Noland MD; Elliot Caceres DO Roof Slater: Signed Normal [facility] Chloride assayOrdered By: Rosa Caceres on 01-21-2025 Chloride [Moles/Vol] 101 mmol/L 98-108 [facility] Eosinophil percentageOrdered By: Elliot Caceres on 01-21-2025 Eosinophils/100 WBC (Bld) 5.9 % High 0-5 [facility] Erythrocyte distribution wid th ratioOrdered By: Elliot Caceres on 01-21-2025 Erythrocyte distribution width (RBC) [Ratio] 13.0 % 11.6-14.6 [facility] Erythrocyte distribution wid th standard deviationOrdered By: Elliot Caceres on 01-21-2025 Erythrocyte distribution width (RBC) [Ratio] 36.5 fl 35.1-43.9 [facility] Glomerular filtration rate ( GFR) estimation/1.73 sq m using serum, plasma, or whole bOrdered By: Elliot Caceres on 01-21-2025 GFR/1.73 sq M.predicted among non-blacks MDRD (S/P/Bld) [Vol rate/Area] 60 mL/min/{1.73_m2} >60 [facility] Comment on above: mL/min/1.73m2 CKD-EP I Creatinine Equation (2020) Hematocrit Auto (Bld) [Volum e fraction]Ordered By: Elliot Caceres on 01-21-2025 Hematocrit (Bld) [Volume fraction] 37.5 % Low 40-54 [facility] Hemoglobin measurementOrdere d By: Elliot Caceres on 01-21-2025 Hemoglobin (Bld) [Mass/Vol] 13.2 g/dL 13.0-16.5 [facility] Immature granulocytes/100 WB C Auto (Bld)Ordered By: Elliot Caceres on 01-21-2025 Immature granulocytes/100 WBC (Bld) 0.500 % 0.0-0.9 [facility] Comment on above: IG% - Immature Granu locytes (promyelocytes, myelocytes and metamyelocytes) > 1% indicates that a LEFT SHIFT is Present. L501.4021on 01-21-2025 Trop T High Sen 17 ng/L Normal <=22 [facility] Comment on above: Performed By: #### L 500.2500, L501.4021, L100.0100 #### [facility] [address], [address] MCV (mean corpuscular volume ) determinationOrdered By: Elliot Caceres on 01-21-2025 MCV (RBC) [Entitic vol] 78.8 fL Low 80-94 [facility] Magnesiumon 01-21-2025 Magnesium [Mass/Vol] 1.7 mg/dL Normal 1.5-2.2 [facility] Comment on above: Performed By: #### L 501.5200 #### [facility] [address] [place], [place], [id number] Magnesium measurement (mass/ volume)Ordered By: Elliot Caceres on 01-21-2025 Magnesium (Unsp spec) [Mass/Vol] 1.7 mg/dL 1.5-2.2 [facility] Mean corpuscular hemoglobin (MCH) determinationOrdered By: Elliot Caceres on 01-21-2025 MCH (RBC) [Entitic mass] 27.7 pg 27.0-32.0 [facility] Mean corpuscular hemoglobin concentration (MCHC) determinationOrdered By: Elliot Caceres on 01-21-2025 MCHC (RBC) [Mass/Vol] 35.2 g/dL 32-36 [facility] Mean platelet volume determi nationOrdered By: Elliot Caceres on 01-21-2025 Platelet mean volume (Bld) [Entitic vol] 9.7 fL 6.2-12.0 [facility] Monocyte percentageOrdered B y: Elliot Caceres on 01-21-2025 Monocytes/100 WBC (Bld) 14.0 % High 0-10 [facility] Neutrophil percentageOrdered By: Elliot Caceres on 01-21-2025 Neutrophils/100 WBC (Bld) 62.0 % 47-70 [facility] Nucleated red blood cell per centageOrdered By: Elliot Caceres on 01-21-2025 Nucleated RBC/100 WBC (Bld) [Ratio] 0 % 0-5 [facility] Platelet countOrdered By: Rosa Caceres on 01-21-2025 Platelets (Bld) [#/Vol] 185 10*3/uL 150-450 [facility] Potassium measurement (mass/ volume)Ordered By: Elliot Caceres on 01-21-2025 Potassium (Unsp spec) [Mass/Vol] 4.1 mmol/L 3.3-5.1 [facility] RBC Auto (Bld) [#/Vol]Ordere d By: Elliot Caceres on 01-21-2025 RBC (Bld) [#/Vol] 4.76 10*6/uL 4.6-6.2 [facility] Serum creatinine measurement (mass/volume)Ordered By: Elliot Caceres on 01-21-2025 Creatinine [Mass/Vol] 1.41 mg/dL High 0.70-1.20 [facility] Serum glucose measurement (m ass/volume)Ordered By: Elliot Caceres on 01-21-2025 Glucose [Mass/Vol] 127 mg/dL High 70-99 [facility] Serum or plasma calcium jamaal urement (mass/volume)Ordered By: Elliot Caceres on 01-21-2025 Calcium [Mass/Vol] 12.5 mg/dL High 7.6-11.0 [facility] Serum or plasma urea nitroge n measurement (mass/volume)Ordered By: Elliot Caceres on 01-21-2025 Urea nitrogen [Mass/Vol] 22 mg/dL High 4-19 [facility] Sodium levelOrdered By: Jhony Caceres on 01-21-2025 Sodium [Moles/Vol] 138 mmol/L 133-145 [facility] Troponin T.cardiac [Mass/vol ume] in Serum or Plasma by High sensitivity methodOrdered By: Elliot Caceres on 01-21-2025 Troponin T.cardiac High sensitivity method [Mass/Vol] 17 ng/L <22 [facility] White blood cell (WBC) count Ordered By: Elliot Caceres on 01-21-2025 WBC (Bld) [#/Vol] 4.1 10*3/uL Low 4.4-11.0 [facility] US ABD RIGHT UPPER QUADRANTo n 01-19-2025 US ABD RIGHT UPPER QUADRANT * * *Final Report* * * DATE OF EXAM: Jan 19 2025 10:41AM [facility] 1032 - US ABD RIGHT [...] No hydronephrosis. - IMPRESSION: Hepatic steatosis. Splenomegaly. 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 - IMPRESSION: Hepatic steatosis. Splenomegaly. Roof Slater: STEPHAN Transcribe Date/Time: Jan 21 2025 7:21A Dictated by : BLAYNE AMBROSIO MD This examination was interpreted and the report reviewed and electronically signed by: BLAYNE AMBROSIO MD on Jan 21 2025 7:22AM EST [id number] Normal [facility] TRESA MUÑOZ ([id number]) 1970 M Date Time Provider Department 01/16/25 EDOUARD NOLAND [facility] During your visit today, we recorded the [...] up with one of when back in [facility]. I am still waiting on all your labs. If you feels worse, please go to Er in [place]. Follow up with one of us when [...] ok now. They are currently stuck in [place] with their van broken down. Will call [...] Primary Visit Diagnosis:Elevated liver enzymes [R74.8] Order(s):[facility] RIGHT UPPER QUADRANT [[id number]] Order #: [id number] FUTURE Prescriptions as of 01/16/2025 - multivitamin [...] biPAP ST 16/11 cmH2O with BUR 12 [facility] - gabapentin (NEURONTIN) 300 mg capsule Take [...] Status:Closed by LEONIE ZHENG on 01/16/25 Normal [facility] 1,25-dihydroxyvitamin D3 [Ma ss/Vol]on 01-13-2025 1,25 Dihydroxy Vitamin Total 92.8 pg/mL High 19.9 - 79.3 pg/mL [facility] Interpretation and review of laboratory results Abnormal [facility] VIT D1,25 DIHYDROXY 92.8 pg/mL High 19.9-79.3 [facility] Comment on above: Order Comment: Speci men Type: BLOOD SPECIMENOrdering Facility: [facility] Address: [address] [place] [address] [place] [address] Performed By: #### 1 649-3 ####[facility] LABCLIA [id number] [place] [address] [place] ALKALINE PHOSPHATASE ISOENZY MES (P)on 01-13-2025 ALK PHOS BONE % 30.4 % Normal 10.7-68.3 [facility] Comment on above: Order Comment: Speci men Type: BLOOD SPECIMENOrdering Facility: [facility] Address: [address] [place] [address] Performed By: #### A LKISOP ####[facility] LABIA [id number] [place] [address] [place] ALK PHOS LIVER % 58.2 % Normal 26.0-86.2 [facility] Comment on above: Order Comment: Speci men Type: BLOOD SPECIMENOrdering Facility: [facility] Address: [address] [place] [address] Performed By: #### A LKISOP ####[facility] LABIA [id number] [place] [address] [place] BONE FRACTION 42.3 U/L Normal 12.9-52.6 [facility] Comment on above: Order Comment: Speci men Type: BLOOD SPECIMENOrdering Facility: [facility] Address: [address] [place] [address] Performed By: #### A LKISOP ####[facility] LABIA [id number] [place] [address] [place] INTESTINE FRACTION 16.0 U/L Normal 0.0-16.3 [facility] Comment on above: Order Comment: Speci men Type: BLOOD SPECIMENOrdering Facility: [facility] Address: [address] [place] [address] Performed By: #### A LKISOP ####[facility] LABIA [id number] [place] [address] [place] LIVER FRACTION 80.9 U/L High 16.0-69.3 [facility] Comment on above: Order Comment: Speci men Type: BLOOD SPECIMENOrdering Facility: [facility] Address: [address] [place] [address] Performed By: #### A LKISOP ####[facility] LABCLIA [id number] [place] [address] [place] Neutrophils/100 WBC (Bld) 11.5 % Normal 0.0-24.2 [facility] Comment on above: Order Comment: Speci men Type: BLOOD SPECIMENOrdering Facility: [facility] Address: [address] [place] [address] Performed By: #### A LKISOP ####[facility] LABCLIA [id number] [place] [address] [place] ALP SerPl-cCncon 01-13-2025 ALP [Catalytic activity/Vol] 139 U/L High 38-113 [facility] Comment on above: Order Comment: Speci men Type: BLOOD SPECIMENOrdering Facility: [facility] Address: [address] [place] [address] Performed By: #### 2 4321-2, 6768-6 ####[facility] LABIA [id number] [place] [address] [place] Basic metabolic 2000 panelon 01-13-2025 Anion gap [Moles/Vol] 12 mmol/L 8 - 15 mmol/L [facility] Calcium [Mass/Vol] 11.5 mg/dL High 8.5 - 10. 2 mg/dL [facility] Chloride [Moles/Vol] 101 mmol/L 98 - 10 7 mmol/L [facility] CO2 [Moles/Vol] 25 mmol/L 22 - 30 mmol/L [facility] Creatinine [Mass/Vol] 1.55 mg/dL High 0.73 - 1.22 mg/dL [facility] GFR/1.73 sq M.predicted among non-blacks MDRD (S/P/Bld) [Vol rate/Area] 54 mL/min/{1.73_m2} Low - PINF [facility] Comment on above: Estimated Glomerular Filtration Rate [...] 178 mg/dL High 74 - 99 mg/dL [facility] Comment on above: The [place] Diabete s Association (ADA) provides guidance for [...] Standards of Medical Care in Diabetes 2016, [place] Diabetes Association. Diabetes Care. 2016.39(Suppl 1). Interpretation and review of laboratory results Abnormal [facility] Potassium [Moles/Vol] 4 mmol/L 3.7 - 5.1 mmol/L [facility] Sodium [Moles/Vol] 138 mmol/L 136 - 144 mmol/L [facility] Urea nitrogen [Mass/Vol] 31 mg/dL High 9 - 24 mg/dL [facility] Anion gap [Moles/Vol] 12 mmol/L Normal 8-15 [facility] Comment on above: Order Comment: Speci men Type: BLOOD SPECIMENOrdering Facility: [facility] Address: [address] [place] [address] Performed By: #### 2 4321-2, 6768-6 ####[facility] LABCLIA [id number] [place] [address] [place] Calcium [Mass/Vol] 11.5 mg/dL High 8.5-10.2 [facility] Comment on above: Order Comment: Speci men Type: BLOOD SPECIMENOrdering Facility: [facility] Address: [address] [place], [place] [address] Performed By: #### 2 4321-2, 68-6 ####[facility] LABCLIA [id number] [place] [address] [place] Chloride [Moles/Vol] 101 mmol/L Normal 98-107 [facility] Comment on above: Order Comment: Speci men Type: BLOOD SPECIMENOrdering Facility: [facility] Address: [address] [place] [address] Performed By: #### 2 4321-2, 68-6 ####[facility] LABCLIA [id number] [place] [address] [place] CO2 [Moles/Vol] 25 mmol/L Normal 22-30 [facility] Comment on above: Order Comment: Speci men Type: BLOOD SPECIMENOrdering Facility: [facility] Address: [address] [place] [address] Performed By: #### 2 4321-2, 68-6 ####[facility] LABCLIA [id number] [place] [address] [place] Creatinine [Mass/Vol] 1.55 mg/dL High 0.73-1.22 [facility] Comment on above: Order Comment: Speci men Type: BLOOD SPECIMENOrdering Facility: [facility] Address: [address] [place] [address] Performed By: #### 2 4321-2, 68-6 ####[facility] LABCLIA [id number] [place] [address] [place] Creatinine and Glomerular filtration rate.predicted panel (S/P/Bld) 54 mL/min/1.73m??? Low >=60 [facility] Comment on above: Order Comment: Speci men Type: BLOOD SPECIMENOrdering Facility: [facility] Address: [address] [place] [address] Result Comment: Lynne mated Glomerular Filtration Rate [...] GFR. Performed By: #### 2 4321-2, 6768-6 ####[facility] LABCLIA [id number] [place] [address] [place] Glucose [Mass/Vol] 178 mg/dL High 74-99 [facility] Comment on above: Order Comment: Jhony brunner Type: BLOOD SPECIMENOrdering Facility: [facility] Address: [address] [place] [address] Result Comment: The [place] Diabetes Association (ADA) provides guidance for cutoff [...] Standards of Medical Care in Diabetes 2016, [place] Diabetes Association. Diabetes Care. 2016.39(Suppl 1). Performed By: #### 2 4321-2, 6768-6 ####[facility] LABIA [id number] [place] [address] [place] Potassium [Moles/Vol] 4.0 mmol/L Normal 3.7-5.1 [facility] Comment on above: Order Comment: Jhony brunner Type: BLOOD SPECIMENOrdering Facility: [facility] Address: [address] [place] [address] Performed By: #### 2 4321-2, 6768-6 ####[facility] LABIA [id number] [place] [address] [place] Sodium [Moles/Vol] 138 mmol/L Normal 136-144 [facility] Comment on above: Order Comment: Specpretty brunner Type: BLOOD SPECIMENOrdering Facility: [facility] Address: [address] [place] [address] Performed By: #### 2 4321-2, 6768-6 ####[facility] [id number] [place] [address] [place] Urea nitrogen [Mass/Vol] 31 mg/dL High 9-24 [facility] Comment on above: Order Comment: Randalli men Type: BLOOD SPECIMENOrdering Facility: [facility] Address: [address] [place] [address] Performed By: #### 2 4321-2, 6768-6 ####[facility] [id number] [address] OF [facility] CNPNon 01-13-2025 [facility] -- TRESA MUÑOZ ([id number]) 1970 Date Time Provider Department 01/13/25 EDOUARD NOLAND [facility] During your visit today, we recorded the [...] ST 16/11 cmH2O with BUR [address] [facility] - gabapentin (NEURONTIN) 300 mg capsule [...] Status:Closed by EDOUARD NOLAND on 01/16/25 Normal [facility] Telephone (FAMPWS) -- TRESA MUÑOZ ([id number]) 1970 M Date Time Provider Department 01/13/25 EDOUARD NOLAND [employer] During your visit today, we recorded the [...] leave a message for patient. Will send [employer] message. Allergies As of Date: 01/13/2025 Noted [...] [R74.8] Order(s):PTH RELATED PEPTIDE [SQPTHPEP] Order #: [id number] FUTURE VITAMIN D1 25-DIHYDR [JOAWE256] Order #: [id number] FUTURE CALCIUM, IONIZED [SQICA] Order #: [id number] FUTURE ALK PHOS ISOENZYM BL [SQALKISO] Order #: [id number] FUTURE BASIC METABOLIC PANEL [SQBMP] Order #: [id number] FUTURE Prescriptions as of 01/14/2025 - multivitamin [...] biPAP ST 16/11 cmH2O with BUR 12 [facility] - gabapentin (NEURONTIN) 300 mg capsule Take [...] for m (more content not included)... Normal [facility] Telephone (INTMWS) -- RUDY SHELLEYIC ([id number]) 1970 M Date Time Provider Department 01/13/25 EDOUARD NOLAND During your visit today, we recorded the following information about you: Virginia Hurst LPN 01/13/2025 4:04 PM Signed Electronic PA rec'd and completed for dulaglutide (TRULICITY) 0.75 mg/0.5 mL pen injector Virginia Hurst LPN 01/13/2025 4:08 PM Signed rior authorization approved Payer: [employer] [phone] Note from payer: CaseId:[id number];Status:Gideon roved;Review Type:Prior Auth;Coverage Start Date:12/14/2024;Coverage End Date:01/13/2026; Approval Details Authorized from December 14, 2024 to January 13, 2026 Electronic appeal: Not supported View History Pharmacy Benefits Open Encounter TRESA MUÑOZ - [employer] ([employer]) Covered: Retail, Mail Order Unknown: Specialty, Long-Term Care BIN: [id number] : 1970 Group ID: [id number] PCN: [id number] Legal sex: M Group name: [employer] Address: [address] [place], [place] [id number] Medication Being Authorized dulaglutide (TRULICITY) 0.75 mg/0.5 mL pen injector Inject 0.75 mg subcutaneously one time a week. Dispense: 6 mL Refills: 3 Start: 01/12/2025 End: 01/12/2026 Class: Normal Diagnoses: Controlled type 2 diabetes mellitus without complication, without long-term current use of insulin (HCC) This order has been released to its destination. To be filled at: [facility] [address] [place] [phone] - [address] - [phone] Pharmacy notified. Allergies As of Date: 01/13/2025 Noted Allergy Reaction AMOXIL (AMOXICILLIN) 11/16/2014 2 - Rash ANIMAL DANDER 03/06/2012 5 - Intolerance Comments: nasal congestion KETOCONAZOLE 01/02/2023 2 - Rash Comments: blisters Date Reviewed: 09/01/2024 Reviewed by: Porsha Acharya LPN - Fully Assessed Reason for Visit: Insurance Authorization [[id number]] Prescriptions as of 01/13/2025 - multivitamin tablet [...] ST 16/11 cmH2O with BUR [address] [facility] - gabapentin (NEURONTIN) 300 mg capsule Take 1 capsule after arriving home from work or 1 hour before bedtime. - dihydroberberine (BERBERINE ES-5 ORAL) Take 1 tablet by mouth once daily. - Blood-Glucose Sensor (FREESTYLE WYATT 3 SENSOR) benjy Apply new sensor every fourteen (14) days to upper arm. - flash glucose sensor (FREESTYLE WYTAT 2 SENSOR) kit Apply new sensor every [...] Encounter Status:Closed by VIRGINIA [facility]ST [facility] TRESA MUÑOZ ([id number]) 1970 M Date Time Provider Department 01/13/25 EDOUARD NOLAND [facility] During your visit today, we recorded the [...] Patient reports that he already left for [place]. Advised patient I could forward the information to one of the ER's along the way to [place] or in [place] if he could provide Name of the [...] ST 16/11 cmH2O with BUR [address] [facility] - gabapentin (NEURONTIN) 300 mg capsule [...] Status:Closed by EDOUARD NOLAND on 01/13/25 Normal [facility] Calcium.ionized [Moles/Vol]o n 01-13-2025 Calcium.ionized (Bld) [Mass/Vol] 1.54 mmol/L High 1.08 - 1.30 mmol/L [facility] Calcium.ionized adjusted to pH 7.4 (Bld) [Moles/Vol] 1.52 mmol/L High 1.08 - 1.30 mmol/L [facility] Interpretation and review of laboratory results Abnormal [facility] Calcium.ionized (Bld) [Mass/Vol] 1.54 mmol/L High 1.08-1.30 [facility] Comment on above: Order Comment: Speci men Type: BLOOD SPECIMENOrdering Facility: [facility] Address: [address] [place] [address] Performed By: #### 1 995-0 ####[facility] LABCLIA [id number] [place] [address] [place] Calcium.ionized adjusted to pH 7.4 (Bld) [Moles/Vol] 1.52 mmol/L High 1.08-1.30 [facility] Comment on above: Order Comment: Speci men Type: BLOOD SPECIMENOrdering Facility: [facility] Address: [address] [place] [address] Performed By: #### 1 995-0 ####[facility] LABCLIA [id number] [place] [address] [place] PTH RELATED PEPTIDEon 2024 PTH RELATED PEPTIDE 3.1 pmol/L High 0.0-2.3 [facility] Comment on above: Order Comment: Speci men Type: BLOOD SPECIMEN [facility] Facility: [facility] Address: [address] [place] [address] Result Comment: INTE RPRETIVE INFORMATION: Parathyroid Hormone-Related Peptide This test was developed and its performance characteristics determined by [facility]. It has not been cleared or approved by the US Food and Drug Administration. This test was performed in a CLIA certified laboratory and is intended for clinical purposes. Performed By: [facility] [address] [place] [address] Consumer Relations Complaint Clerk: Bg Merida MD, PhD [place] Number: [id number] Performed By: #### 5 5454-3 #### [facility] CLIA [id number] [address] [place] [address] [place] 25(OH)D3 SerPl-mCncon 2024 25-hydroxyvitamin D3 [Mass/Vol] 35.3 ng/mL Normal 31.0-80.0 [facility] Comment on above: Order Comment: Speci men Type: BLOOD SPECIMEN [facility] Facility: [facility] Address: [address] [place] [address] Result Comment: Clas sification of 25 [place] Vitamin D status: Deficiency/Insufficiency: < or = 30 ng/ml. Sufficiency/Optimal Levels: 31-80 ng/mL Toxicity: > 100 ng/mL. Test performed by chemiluminescent immunoassay. Performed By: #### 5 5454-3 #### [facility] CLIA [id number] [address] [place] [address] [place] 25-hydroxyvitamin D3 [Mass/V ol]on 01-12-2025 Interpretation and review of laboratory results Normal [facility] The reference range interval was based on an analysis of samples from healthy adults and may not pertain to children from 0-18 years old. [facility] ALBUMIN/CREATININE RATIO, UR INEon 01-12-2025 Albumin DL <= 20 mg/L (U) [Mass/Vol] mg/dL Normal [facility] Comment on above: Order Comment: Speci men Type: URINE SPECIMENOrdering Facility: [facility] Address: [address] [place] [address] Performed By: #### U ACR ####[facility] LABCLIA [id number] [place] [address] [place] Albumin/Creatinine (U) [Mass ratio] <15 Normal <30 [facility] Comment on above: Order Comment: Speci men Type: URINE SPECIMENOrdering Facility: [facility] Address: [address] [place] [address] Result Comment: Adul t Male and Female Nephrotic Criteria: <30 mg/g is considered normal to mildly increased 30-300 mg/g is considered moderately increased >300 mg/g is considered severely increased KDIGO. (2013). KDIGO 2012 Clinical Practice Guideline for the Evaluation and Management of Chronic Kidney Disease. Official Journal of the International Society of Nephrology, 3(1), 1-150. Performed By: #### U ACR ####[facility] LABCLIA [id number] [address] [address] [place] Creatinine (U) [Mass/Vol] 80.2 mg/dL Normal 20.0-300.0 [facility] Comment on above: Order Comment: Speci men Type: URINE SPECIMENOrdering Facility: [facility] Address: [address] [place] [address] Performed By: #### U ACR ####[facility] LABCLIA [id number] [place] [address] [place] CBC W Auto Differential pane l (Bld)on 01-12-2025 Basophils (Bld) [#/Vol] 0.03 10*3/uL [facility] Basophils/100 WBC (Bld) 0.7 % [facility] Differential cell count method Nom (Bld) Auto [facility] Eosinophils (Bld) [#/Vol] 0.26 10*3/uL [facility] Eosinophils/100 WBC (Bld) 5.7 % [facility] Erythrocyte distribution width (RBC) [Ratio] 13.2 % 11.5 - 15.0 % [facility] Hematocrit (Bld) [Volume fraction] 40.9 % 39.0 - 51.0 % [facility] Hemoglobin (Bld) [Mass/Vol] 13.7 g/dL 13.0 - 17.0 g/dL [facility] Immature granulocytes (Bld) [#/Vol] [facility] Immature granulocytes/100 WBC (Bld) 0.2 % [facility] Interpretation and review of laboratory results Abnormal [facility] Lymphocytes (Bld) [#/Vol] 0.7 10*3/uL Low [facility] Lymphocytes/100 WBC (Bld) 15.4 % [facility] MCH (RBC) [Entitic mass] 27.2 pg 26.0 - 34.0 pg [facility] MCHC (RBC) [Mass/Vol] 33.5 g/dL 30.5 - 36.0 g/dL [facility] MCV (RBC) [Entitic vol] 81.2 fL 80.0 - 100.0 fL [facility] Monocytes (Bld) [#/Vol] 0.61 10*3/uL [facility] Monocytes/100 WBC (Bld) 13.4 % [facility] Neutrophils (Bld) [#/Vol] 2.95 10*3/uL [facility] Neutrophils/100 WBC (Bld) 64.6 % [facility] Nucleated RBC (Bld) [#/Vol] [facility] Nucleated RBC/100 WBC (Bld) [Ratio] 0 % /100 WBC [facility] Platelet mean volume (Bld) [Entitic vol] 10.6 fL 9.0 - 12.7 fL [facility] Platelets (Bld) [#/Vol] 183 10*3/uL [facility] RBC (Bld) [#/Vol] 5.04 10*6/uL 4.20 - 6.0 0 m/uL [facility] WBC (Bld) [#/Vol] 4.56 10*3/uL [facility] Basophils (Bld) [#/Vol] 0.03 10*3/uL Normal <0.11 [facility] Comment on above: Order Comment: Speci men Type: BLOOD SPECIMEN [facility] Address: [address] [place] [address] Performed By: #### 5 5454-3 #### [facility] CLIA [id number] [address] [place] [address] [place] Basophils/100 WBC (Bld) 0.7 % Normal [facility] Comment on above: Order Comment: Speci men Type: BLOOD SPECIMEN [facility] Facility: [facility] Address: [address] [place] [address] Performed By: #### 5 5454-3 #### [facility] CLIA [id number] [address] [place] [address] [place] Differential cell count method Nom (Bld) Auto Normal [facility] Comment on above: Order Comment: Speci men Type: BLOOD SPECIMEN [facility] Address: [address] [place] [address] Performed By: #### 5 5454-3 #### [facility] CLIA [id number] [address] [place] [address] [place] Eosinophils (Bld) [#/Vol] 0.26 10*3/uL Normal <0.46 [facility] Comment on above: Order Comment: Speci men Type: BLOOD SPECIMEN [facility] Facility: [facility] Address: [address] [place] [address] Performed By: #### 5 5454-3 #### [facility] CLIA [id number] [address] [place] [address] [place] Eosinophils/100 WBC (Bld) 5.7 % Normal [facility] Comment on above: Order Comment: Speci men Type: BLOOD SPECIMEN [facility] Address: [address] [place] [address] Performed By: #### 5 5454-3 #### [facility] CLIA [id number] [address] [place] [address] [place] Erythrocyte distribution width (RBC) [Ratio] 13.2 % Normal 11.5-15.0 [facility] Comment on above: Order Comment: Speci men Type: BLOOD SPECIMEN [facility] Address: [address] [place] [address] Performed By: #### 5 5454-3 #### [facility] CLIA [id number] [address] [place] [address] [place] Hematocrit (Bld) [Volume fraction] 40.9 % Normal 39.0-51.0 [facility] Comment on above: Order Comment: Speci men Type: BLOOD SPECIMEN [facility] Address: [address] [place] [address] Performed By: #### 5 5454-3 #### [facility] CLIA [id number] [address] [place] [address] [place] Hemoglobin (Bld) [Mass/Vol] 13.7 g/dL Normal 13.0-17.0 [facility] Comment on above: Order Comment: Speci men Type: BLOOD SPECIMEN [facility] Address: [address] [place] [address] Performed By: #### 5 5454-3 #### [facility] CLIA [id number] [address] [place] [address] [place] Immature granulocytes (Bld) [#/Vol] 10*3/uL Normal <0.10 [facility] Comment on above: Order Comment: Speci men Type: BLOOD SPECIMEN [facility] Address: [address] [place] [address] Performed By: #### 5 5454-3 #### [facility] CLIA [id number] [address] [place] [address] [place] Immature granulocytes/100 WBC (Bld) 0.2 % Normal [facility] Comment on above: Order Comment: Speci men Type: BLOOD SPECIMEN [facility] Address: [address] [place] [address] Performed By: #### 5 5454-3 #### [facility] CLIA [id number] [address] [place] [address] [place] Lymphocytes (Bld) [#/Vol] 0.70 10*3/uL Low 1.00-4.00 [facility] Comment on above: Order Comment: Speci men Type: BLOOD SPECIMEN [facility] Address: [address] [place] [address] Performed By: #### 5 5454-3 #### [facility] CLIA [id number] [address] [place] [address] [place] Lymphocytes/100 WBC (Bld) 15.4 % Normal [facility] Comment on above: Order Comment: Speci men Type: BLOOD SPECIMEN [facility] Address: [address] [place] [address] Performed By: #### 5 5454-3 #### [facility] CLIA [id number] [address] [place] [address] [place] MCH (RBC) [Entitic mass] 27.2 pg Normal 26.0-34.0 [facility] Comment on above: Order Comment: Speci men Type: BLOOD SPECIMEN [facility] Address: [address] [place] [address] Performed By: #### 5 5454-3 #### [facility] CLIA [id number] [address] [place] [address] [place] MCHC (RBC) [Mass/Vol] 33.5 g/dL Normal 30.5-36.0 [facility] Comment on above: Order Comment: Speci men Type: BLOOD SPECIMEN [facility] Address: [address] [place] [address] Performed By: #### 5 5454-3 #### [facility] CLIA [id number] [address] [place] [address] [place] MCV (RBC) [Entitic vol] 81.2 fL Normal 80.0-100.0 [facility] Comment on above: Order Comment: Speci men Type: BLOOD SPECIMEN [facility] Address: [address] [place] [address] Performed By: #### 5 5454-3 #### [facility] CLIA [id number] [address] [place] [address] [place] Monocytes (Bld) [#/Vol] 0.61 10*3/uL Normal <0.87 [facility] Comment on above: Order Comment: Speci men Type: BLOOD SPECIMEN [facility] Address: [address] [place] [address] Performed By: #### 5 5454-3 #### [facility] CLIA [id number] [address] [place] [address] [place] Monocytes/100 WBC (Bld) 13.4 % Normal [facility] Comment on above: Order Comment: Speci men Type: BLOOD SPECIMEN [facility]: [facility] Address: [address] [place] [address] Performed By: #### 5 5454-3 #### [facility] CLIA [id number] [address] [place] [address] [place] Neutrophils (Bld) [#/Vol] 2.95 10*3/uL Normal 1.45-7.50 [facility] Comment on above: Order Comment: Speci men Type: BLOOD SPECIMEN [facility] Address: [address] [place] [address] Performed By: #### 5 5454-3 #### [facility] CLIA [id number] [address] [place] [address] [place] Neutrophils/100 WBC (Bld) 64.6 % Normal [facility] Comment on above: Order Comment: Speci men Type: BLOOD SPECIMEN [facility] Address: [address] [place] [address] Performed By: #### 5 5454-3 #### [facility] CLIA [id number] [address] [place] [address] [place] Nucleated RBC (Bld) [#/Vol] 10*3/uL Normal <0.01 [facility] Comment on above: Order Comment: Speci men Type: BLOOD SPECIMEN [facility]: [facility] Address: [address] [place] [address] Performed By: #### 5 5454-3 #### [facility] CLIA [id number] [address] [place] [address] [place] Nucleated RBC/100 WBC (Bld) [Ratio] 0.0 /100 WBC Normal [facility] Comment on above: Order Comment: Speci men Type: BLOOD SPECIMEN [facility] Address: [address] [place] [address] Performed By: #### 5 5454-3 #### [facility] CLIA [id number] [address] [place] [address] [place] Platelet mean volume (Bld) [Entitic vol] 10.6 fL Normal 9.0-12.7 [facility] Comment on above: Order Comment: Speci men Type: BLOOD SPECIMEN [facility] Address: [address] [place] [address] Performed By: #### 5 5454-3 #### [facility] CLIA [id number] [address] [place] [address] [place] Platelets (Bld) [#/Vol] 183 10*3/uL Normal 150-400 [facility] Comment on above: Order Comment: Speci men Type: BLOOD SPECIMEN [facility] Address: [address] [place] [address] Performed By: #### 5 5454-3 #### [facility] CLIA [id number] [address] [place] [address] [place] RBC (Bld) [#/Vol] 5.04 10*6/uL Normal 4.20-6.00 [facility] Comment on above: Order Comment: Speci men Type: BLOOD SPECIMEN [facility] Address: [address] [place] [address] Performed By: #### 5 5454-3 #### [facility] CLIA [id number] [address] [place] [address] [place] WBC (Bld) [#/Vol] 4.56 10*3/uL Normal 3.70-11.00 [facility] Comment on above: Order Comment: Speci men Type: BLOOD SPECIMEN [facility] Address: [address] [place] [address] Performed By: #### 5 5454-3 #### [facility] CLIA [id number] [address] [place] [address] [place] CNOVon 01-12-2025 CNOV Office Visit (FAMPWS ) -- TRESA MUÑOZ ([id number]) 1970 M Date Time Provider Department 01/12/25 [...] the results, and send a list via SmartCare system in two weeks so we can decide [...] snoring. - Schedule an eye exam with [facility]. - Fill and use Viagra [...] was a couple of years ago at [facility]. Fatigue: - Variable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 Cowan APRN.COST MANAGER Work Phone: Neurology Comment on above: Central sleep apnea (Primary Dx); MIKHAIL (obstructive sleep apnea) Start: 04-16-2024 End: 04-18-2024 Telephone encounter Edouard Ramires MD Work Phone: Neurology Comment on above: Patient Question Start: 04-10-2024 End: 04-11-2024 ambulatory Edouard Ramires MD Work Phone: Neurology Comment on above: Sleep Study Start: 02-19-2024 Telephone encounter Jh de la rosa APRN.COST MANAGER Work Phone: Neurology Comment on above: Patient Question/tit ration study Start: 02-09-2024 End: 02-09-2024 ambulatory Edouard Ramires Facility:[facility] Start: 01-16-2024 End: 01-16-2024 [facility] Comment on above: Controlled type 2 di abetes mellitus without complication, without long-term current use of insulin (HCC) (Primary Dx) Start: 01-16-2024 End: 01-16-2024 Telemedicine consultation with patient Noble Lawson [facility] Work Phone: [facility] Start: 01-14-2024 [...] Hart APRN.CNP Work Phone: [facility] [place] Comment on above: Controlled type 2 di abetes mellitus without complication, without long-term current use of insulin (HCC) (Primary Dx); Muscle cramps; Weakness of lower extremity, unspecified laterality; Vitamin D deficiency; Borderline abnormal thyroid function test; Elevated blood pressure reading without diagnosis of hypertension Start: 11-12-2023 ambulatory Luis Felipe galarza PA-C Work Phone: [facility] [place] Comment on above: Rash, spots Start: 11-01-2023 End: 11-01-2023 Patient encounter procedure Luis Felipe Jordan PA-C Work Phone: [facility] [place] Comment on above: Tinea corporis (Prim colby Dx) Start: 10-30-2023 Telephone encounter Edouard Noland MD Work Phone: [facility] [place] Comment on above: need rx for CPAP ite ms Start: 10-22-2023 End: 10-22-2023 ambulatory Noble Lawson [facility] Work Phone: [facility] Comment on above: Controlled type 2 di abetes mellitus without complication, without long-term current use of insulin (HCC) (Primary Dx) Start: 10-22-2023 End: 10-22-2023 Telemedicine consultation with patient Noble Lawson [facility] Work Phone: [facility] [place] Start: 09-10-2023 End: 09-10-2023 ambulatory Noble Lawson [facility] Work Phone: [facility] Comment on above: Controlled type 2 di abetes mellitus without complication, without long-term current use of insulin (HCC) (Primary Dx) Start: 09-10-2023 End: 09-10-2023 Telemedicine consultation with patient Noble Lawson [facility] Work Phone: [facility] [place] Start: 09-06-2023 Refill Edouard Noland MD Work Phone: Family [facility] [place] Comment on above: Refill Request Start: 07-02-2023 End: 07-02-2023 Office outpatient visit 25 minutes Bobbi Hart APRN.[facility] Work Phone: [facility] [place] Comment on above: Controlled type 2 di abetes mellitus without complication, without long-term current use of insulin (HCC) (Primary Dx); MIKHAIL (obstructive sleep apnea); Muscle weakness; Hypertriglyceridemia; Borderline abnormal thyroid function test Start: 06-19-2023 ambulatory Shane Rand [facility] Work Phone: [facility] Comment on above: Metformin Start: 06-19-2023 Telephone encounter Shane Rand [facility] Work Phone: [facility] Comment on above: Patient Question Start: 02-05-2023 End: 02-05-2023 ambulatory Shane Rand [facility] Work Phone: [facility] Comment on above: Controlled type 2 di abetes mellitus without complication, without long-term current use of insulin (HCC) (Primary Dx) Start: 02-05-2023 End: 02-05-2023 Telemedicine consultation with patient Shane Rand [facility] Work Phone: [facility] [place] Start: 01-16-2023 Telephone encounter Edouard Noland MD Work Phone: Internal Medicine [place] Comment on above: Patient Question; Or ders Start: 01-08-2023 End: 01-08-2023 ambulatory Shane Rand [facility] Work Phone: [facility] Comment on above: Controlled type 2 di abetes mellitus without complication, without long-term current use of insulin (HCC) (Primary Dx); Medication management Start: 01-08-2023 End: 01-08-2023 Telemedicine consultation with patient Shane Rand [facility] Work Phone: [facility] [place] Start: 01-02-2023 End: 01-02-2023 Patient encounter procedure Edouard Noland MD Work Phone: [facility] [place] Comment on above: Well adult exam (Lise [...] encounter Edouard Noland MD Work Phone: Family [facility] Procedures Date Procedure Procedure Detail Performing [...] Activity Detail Author Start: 03-19-2033 Colonoscopy Colonoscopy [facility] Start: 03-19-2033 Colorectal Cancer Screening Colorectal Cancer Screening [facility] Start: 03-19-2033 Screening for malignant neoplasm of colon [facility] Start: 01-02-2033 Urine microalbumin profile [facility] Start: 12-08-2027 LIPID SCREEN LIPID SCREEN [facility] Start: 01-12-2026 Annual PCP Team Chronic Disease Visit Annual PCP Team Chronic Disease Visit [facility] Start: 01-12-2026 Anxiety Screening Anxiety Screening [facility] Start: 01-12-2026 Depression Screening Depression Screening [facility] Start: 01-12-2026 Diabetic foot examination Diabetic Foot Exam [facility] Start: 01-12-2026 Hepatitis B screening Urine Albumin:Creatinine Ratio [facility] Start: 01-12-2026 Pneumococcal Vaccine: 50+ (1 of 2 - PCV) Pneumococcal Vaccine: 50+ (1 of 2 - PCV) [facility] Comment on above: Postponed from 1991 (Declined at t his time) Start: 01-12-2026 Shingrix Vaccine (1 of 2) Shingrix Vaccine (1 of 2) [facility] Comment on above: Postponed from 2022 (Declined at t his time) Start: 12-07-2025 DIABETES SCREEN DIABETES SCREEN [facility] Start: 07-25-2025 Hepatitis B surface antibody level LDL Cholesterol [facility] Start: 07-14-2025 End: 10-13-2025 Hemoglobin A1c in Blood HEMOGLOBIN A1C Lab Routine Controlled type 2 diabetes mellitus without complication, without long-term current use of insulin (HCC) Expected: 07/14/2025, Expires: 10/13/2025 [facility] Comment on above: Expected: 07/14/2025, Expires: Start: 07-14-2025 Hemoglobin A1c measurement HbA1C [facility] Start: 07-14-2025 End: 07-14-2025 ambulatory 07/14/2025 9:30 AM EST Results Only [place] [address] [place] [address] [place] Novawn [facility] Start: 07-07-2025 Annual PCP Team Chronic Disease Visit Annual PCP Team Chronic Disease Visit [facility] Start: 07-07-2025 Anxiety Screening Anxiety Screening [facility] Comment on above: Postponed from 1990 (Declined at t his time) Start: 07-07-2025 Covid-19 Vaccine ( season) Covid-19 Vaccine ( season) [facility] Comment on above: Postponed from 03/30/2024 (Declined at t his time) Start: 07-07-2025 Hepatitis B Vaccine (1 of 3 - 19+ 3-dose series) Hepatitis B Vaccine (1 of 3 - 19+ 3-dose series) [facility] Comment on above: Postponed from 1991 (Declined at t his time) Start: 07-07-2025 Hepatitis C screening Hepatitis C Screening [facility] Comment on above: Postponed from 1990 (Declined at t his time) Start: 07-07-2025 HIV screening HIV Screening [facility] Comment on above: Postponed from 1990 (Declined at t his time) Start: 07-07-2025 Pneumococcal vaccination Pneumococcal Vaccine (1 of 2 - PCV) [facility] Comment on above: Postponed from 1978 (Declined at t his time) Start: 06-05-2025 End: 06-05-2025 Patient encounter procedure 06/05/2025 10:20 AM EST Office Visit Neurology [address] [place] [address] Edouard Ramires Jr., MD [address] [place] [address] 6 month follow up Neurology Comment on above: 6 month follow up Start: 03-30-2025 Influenza vaccination [facility] Start: 03-20-2025 End: 03-20-2025 Patient encounter procedure 03/20/2025 8:00 AM EDT Office Visit Endocrinology [address] [place] [address] Millicent Ellis MD [address] [address] Poisoning by vitamin D, undetermined intent, initial encounter [T45.2X4A] Endocrinology Comment on above: Poisoning by vitamin D, undetermined int ent, initial encounter [T45.2X4A] Start: 03-09-2025 End: 03-09-2025 Patient encounter procedure [facility] [place] Comment on above: 8 wk follow up 8 wk follow up (40mi n per [facility]) Start: 03-06-2025 End: 03-06-2025 Patient encounter procedure 03/06/2025 10:20 AM EDT Office Visit Neurology [address] [facility] [place] [address] Edouard Ramires Jr., MD [address] [facility] [place] [address] 6 month follow up Neurology Comment on above: 6 month follow up Start: 02-27-2025 End: 02-27-2025 Patient encounter procedure 02/27/2025 11:00 AM EDT Office Visit [facility] [place] [address] [facility] [place] [facility] [place] [address] Edouard Noland MD [address] [place] [address] Hospital follow up Pneumonia [facility] Comment on above: Hospital follow up Pneumonia Start: 02-11-2025 End: 02-11-2026 Basic metabolic 2000 panel - Serum or Plasma BASIC METABOLIC PANEL Lab Routine Renal insufficiency Expected: 02/11/2025, Expires: 02/11/2026 [facility] Comment on above: Expected: 02/11/2025, Expires: 6 Start: 02-11-2025 End: 05-13-2025 CBC W Ordered Manual Differential panel - Blood PATHOLOGIST INTERPRETATION WITH CBC AND DIFF Lab Routine Renal insufficiency Hypercalcemia Expected: 02/11/2025, Expires: 05/13/2025 [facility] Comment on above: Expected: 02/11/2025, Expires: Start: 02-11-2025 End: 05-13-2025 Lactate dehydrogenase [Enzymatic activity/volume] in Serum or Plasma LACTATE DEHYDROGENASE Lab Routine Renal insufficiency Hypercalcemia Expected: 02/11/2025, Expires: 05/13/2025 [facility] Comment on above: Expected: 02/11/2025, Expires: 5 Start: 02-11-2025 End: 05-13-2025 PROTEIN ELECTROPHORESIS SERUM W/INTERP PROTEIN ELECTROPHORESIS SERUM W/INTERP Lab Routine Renal insufficiency Hypercalcemia Expected: 02/11/2025, Expires: 05/13/2025 [facility] Comment on above: Expected: 02/11/2025, Expires: Start: 02-11-2025 End: 05-13-2025 Urinalysis complete panel - Urine URINALYSIS, WITH MICROSCOPIC Lab Routine Renal insufficiency Expected: 02/11/2025, Expires: 05/13/2025 [facility] Comment on above: Expected: 02/11/2025, Expires: Start: 02-03-2025 End: 02-03-2025 Patient encounter procedure 02/03/2025 11:00 AM EDT Appointment [facility] [address] [place] [id number] Osteopenia of multiple sites [M85.89] [facility] Comment on above: Osteopenia of multiple sites [M85.89] Start: 01-28-2025 End: 04-29-2025 25-hydroxyvitamin D3 [Mass/volume] in Serum or Plasma VITAMIN D 25 HYDROXY Lab Routine Hypercalcemia Expected: 01/28/2025, Expires: 04/29/2025 [facility] Comment on above: Expected: 01/28/2025, Expires: Start: 01-28-2025 End: 04-29-2025 Basic metabolic 2000 panel - Serum or Plasma BASIC METABOLIC PANEL Lab Routine Hypercalcemia Expected: 01/28/2025, Expires: 04/29/2025 [facility] Comment on above: Expected: 01/28/2025, Expires: Start: 01-28-2025 End: 04-29-2025 Calcitriol [Mass/volume] in Serum or Plasma VITAMIN D1 25-DIHYDR Lab Routine Hypercalcemia Expected: 01/28/2025, Expires: 04/29/2025 [facility] Comment on above: Expected: 01/28/2025, Expires: Start: 01-28-2025 End: 04-29-2025 Parathyrin related protein [Moles/volume] in Serum or Plasma PTH RELATED PEPTIDE Lab Routine Hypercalcemia Expected: 01/28/2025, Expires: 04/29/2025 [facility] Work Phone: Comment on above: Expected: 01/28/2025, Expires: Start: 01-26-2025 Influenza vaccination Influenza Vaccine (#1) [place] Jessica oconnell Comment on above: Postponed from 03/30/2024 (Declined at t his time) Start: 01-23-2025 Hemoglobin A1c measurement HbA1C [facility] Start: 01-21-2025 End: 01-21-2025 [facility] Start: 01-21-2025 End: 01-21-2025 Patient encounter procedure 01/21/2025 1:00 PM EDT [facility] [address] [place], [place] [id number] [facility] [address] [place] [phone] DM f/up; CGM review [facility] Comment on above: DM f/up; CGM review Start: 01-13-2025 End: 04-14-2025 ALK PHOS ISOENZYM BL [facility] Comment on above: Expected: 01/13/2025, Expires: Start: 01-13-2025 End: 04-14-2025 Parathyrin related protein [Moles/volume] in Serum or Plasma [facility] Work Phone: Comment on above: Expected: 01/13/2025, Expires: Start: 01-12-2025 End: 04-13-2025 Cobalamin (Vitamin B12) [Mass/volume] in Serum or Plasma [facility] Comment on above: Expected: 01/12/2025, Expires: Start: 01-12-2025 End: 04-13-2025 Comprehensive metabolic 2000 panel - Serum or Plasma [facility] Work Phone: Comment on above: Expected: 01/12/2025, Expires: Start: 01-12-2025 End: 04-13-2025 Folate [Mass/volume] in Serum or Plasma [facility] Comment on above: Expected: 01/12/2025, Expires: Start: 01-12-2025 End: 04-13-2025 Hemoglobin A1c in Blood [facility] Comment on above: Expected: 01/12/2025, Expires: Start: 01-12-2025 End: 04-13-2025 Microalbumin/Creatinine [Mass Ratio] in Urine [facility] Comment on above: Expected: 01/12/2025, Expires: Start: 01-12-2025 End: 04-13-2025 Parathyrin.intact [Mass/volume] in Serum or Plasma [facility] Comment on above: Expected: 01/12/2025, Expires: Start: 01-12-2025 End: 04-13-2025 PROTEIN ELECTROPHORESIS SERUM W/INTERP [facility] Comment on above: Expected: 01/12/2025, Expires: Start: 01-12-2025 End: 04-13-2025 PSA/PROSTATE SPECIFIC ANTIGEN SCREENING [facility] Comment on above: Expected: 01/12/2025, Expires: Start: 01-12-2025 End: 04-13-2025 Testosterone [Mass/volume] in Serum or Plasma [facility] Comment on above: Expected: 01/12/2025, Expires: Start: 01-12-2025 End: 04-13-2025 Thyrotropin [Units/volume] in Serum or Plasma [facility] Comment on above: Expected: 01/12/2025, Expires: Start: 01-12-2025 End: 01-12-2025 Patient encounter procedure 01/12/2025 10:40 AM EDT Office Visit Family Medicine [place] [address] [place] [address] Edouard Noland MD [address] [place] [address] 6 mo f/u Family [facility] [place] Comment on above: 6 mo f/u Start: 01-08-2025 Hepatitis B screening Urine Albumin:Creatinine Ratio [facility] Start: 01-03-2025 Annual PCP Team Chronic Disease Visit Annual PCP Team Chronic Disease Visit [facility] Start: 01-03-2025 Diabetic foot examination Diabetic Foot Exam [facility] Start: 10-31-2024 Annual PCP Team Chronic Disease Visit Annual PCP Team Chronic Disease Visit [facility] Start: 10-06-2024 End: 10-06-2024 Patient encounter procedure 10/06/2024 1:00 PM EDT [facility] [address] [place] [address] Noble Lawson, [facility] [address] [place] [phone] DM f/up; CGM review [facility] Comment on above: DM f/up; CGM review Start: 07-29-2024 End: 10-28-2024 ALK PHOS ISOENZYM BL ALK PHOS ISOENZYM BL Lab Routine Elevated alkaline phosphatase level Expected: 07/29/2024, Expires: 10/28/2024 [facility] Work Phone: Comment on above: Expected: 07/29/2024, Expires: Start: 07-07-2024 End: 10-06-2024 25-hydroxyvitamin D3 [Mass/volume] in Serum or Plasma VITAMIN D 25 HYDROXY Lab Routine Vitamin D deficiency Expected: 07/07/2024, Expires: 10/06/2024 [facility] Comment on above: Expected: 07/07/2024, Expires: Start: 07-07-2024 End: 10-06-2024 Comprehensive metabolic 2000 panel - Serum or Plasma COMPREHENSIVE METABOLIC PANEL Lab Routine Hypertriglyceridemia Expected: 07/07/2024, Expires: 10/06/2024 [facility] Comment on above: Expected: 07/07/2024, Expires: Start: 07-07-2024 End: 10-06-2024 Hemoglobin A1c in Blood HEMOGLOBIN A1C Lab Routine Controlled type 2 diabetes mellitus without complication, without long-term current use of insulin (HCC) Expected: 07/07/2024, Expires: 10/06/2024 [facility] Comment on above: Expected: 07/07/2024, Expires: Start: 07-07-2024 End: 10-06-2024 Lipid 1996 panel - Serum or Plasma LIPID PANEL BASIC Lab Routine Hypertriglyceridemia Expected: 07/07/2024, Expires: 10/06/2024 [facility] Work Phone: Comment on above: Expected: 07/07/2024, Expires: Start: 07-07-2024 End: 10-06-2024 Thyrotropin [Units/volume] in Serum or Plasma THYROID STIMULATING HORMONE Lab Routine Borderline abnormal thyroid function test Expected: 07/07/2024, Expires: 10/06/2024 [facility] Comment on above: Expected: 07/07/2024, Expires: Start: 07-07-2024 End: 10-06-2024 Thyroxine (T4) free [Mass/volume] in Serum or Plasma T4 FREE/FREE THYROXINE Lab Routine Borderline abnormal thyroid function test Expected: 07/07/2024, Expires: 10/06/2024 [facility] Comment on above: Expected: 07/07/2024, Expires: Start: 07-07-2024 End: 07-07-2024 Patient encounter procedure 07/07/2024 8:20 AM EST Office Visit Family Medicine [place] [address] [place] [address] Bobbi Hart APRN.COST MANAGER [address] [facility] [place] [place] [address] 6 mo f/u Family Medicine [place] Comment on above: 6 mo f/u Start: 07-04-2024 End: 07-04-2024 Patient encounter procedure 07/04/2024 10:00 AM EST Office Visit Family [facility] [address] [place] [address] Edouard Noland MD [address] [place] [address] 6 mo f/u Family [facility] Comment on above: 6 mo f/u Start: 07-02-2024 Annual PCP Team Chronic Disease Visit Annual PCP Team Chronic Disease Visit [facility] Start: 07-02-2024 Hemoglobin A1c measurement HbA1C [facility] Start: 07-02-2024 Pneumococcal vaccination [facility] Comment on above: Postponed from 1978 (Declined at t his time) Start: 06-26-2024 Hepatitis B surface antibody level LDL Cholesterol [facility] Start: 04-21-2024 End: 04-21-2024 Patient encounter procedure 04/21/2024 11:30 AM EDT [facility] [address] [place] [address] [facility] [address] [place] [phone] DM f/up; CGM review [facility] Comment on above: DM f/up; CGM review Start: 04-16-2024 End: 04-16-2024 Patient encounter procedure 04/16/2024 1:00 PM EDT [facility] [address] [place] [address] [place] [id number] [place] [phone] DM f/up; CGM review [facility] Comment on above: DM f/up; CGM review Start: 03-30-2024 Covid-19 Vaccine ( season) Covid-19 Vaccine ( season) [facility] Start: 03-30-2024 Covid-19 Vaccine ( season) Covid-19 Vaccine ( season) [facility] Start: 03-30-2024 Influenza vaccination [facility] Start: 03-21-2024 Glaucoma screening Dilated Retinal Exam [facility] Start: 03-21-2024 Hepatitis C antibody, confirmatory test Dilated Retinal Exam [facility] Start: 01-27-2024 Influenza vaccination Influenza Vaccine (#1) [place] Jessica oconnell Comment on above: Postponed from 03/30/2023 (Declined at t his time) Start: 01-16-2024 End: 01-16-2024 Patient encounter procedure 01/16/2024 1:00 PM EDT [facility] [address] [facility] [place] [address] Noble Lawson, [facility] [address] [place] [address] DM f/up; CGM review [facility] Comment on above: DM f/up; CGM review Start: 01-14-2024 End: 01-14-2024 Patient encounter procedure 01/14/2024 9:20 AM EDT Office Visit Neurology [address] [facility] [place] [address] Edouard Ramires Jr., MD [address] [phone] MIKHAIL (obstructive sleep apnea) [G47.33 Neurology Comment on above: MIKHAIL (obstructive sleep apnea) [G47.33 Start: 01-04-2024 End: 04-04-2024 25-hydroxyvitamin D3 [Mass/volume] in Serum or Plasma VITAMIN D 25 HYDROXY Lab Routine Vitamin D deficiency Expected: 01/04/2024, Expires: 04/04/2024 [facility] Comment on above: Expected: 01/04/2024, Expires: 4 Start: 01-04-2024 End: 04-04-2024 ALBUMIN/CREAT RATIO RND UR ALBUMIN/CREAT RATIO RND UR Lab Routine Controlled type 2 diabetes mellitus without complication, without long-term current use of insulin (HCC) Expected: 01/04/2024, Expires: 04/04/2024 [facility] Work Phone: Comment on above: Expected: 01/04/2024, Expires: 4 Start: 01-04-2024 End: 04-04-2024 Basic metabolic 2000 panel - Serum or Plasma BASIC METABOLIC PANEL Lab Routine Muscle cramps Expected: 01/04/2024, Expires: 04/04/2024 [facility] Work Phone: Comment on above: Expected: 01/04/2024, Expires: 4 Start: 01-04-2024 End: 04-04-2024 Cobalamin (Vitamin B12) [Mass/volume] in Serum or Plasma VITAMIN B12 Lab Routine Muscle cramps Weakness of lower extremity, unspecified laterality Controlled type 2 diabetes mellitus without complication, without long-term current use of insulin (HCC) Expected: 01/04/2024, Expires: 04/04/2024 [facility] Comment on above: Expected: 01/04/2024, Expires: Start: 01-04-2024 Hepatitis B screening URINE ALBUMIN:CREATININE RATIO [facility] Start: 01-04-2024 End: 04-04-2024 Magnesium [Mass/volume] in Serum or Plasma MAGNESIUM Lab Routine Muscle cramps Expected: 01/04/2024, Expires: 04/04/2024 [facility] Comment on above: Expected: 01/04/2024, Expires: 4 Start: 01-04-2024 End: 04-04-2024 Thyrotropin [Units/volume] in Serum or Plasma THYROID STIMULATING HORMONE Lab Routine Borderline abnormal thyroid function test Expected: 01/04/2024, Expires: 04/04/2024 [facility] Comment on above: Expected: 01/04/2024, Expires: Start: 01-04-2024 End: 04-04-2024 Thyroxine (T4) free [Mass/volume] in Serum or Plasma T4 FREE/FREE THYROXINE Lab Routine Borderline abnormal thyroid function test Expected: 01/04/2024, Expires: 04/04/2024 [facility] Comment on above: Expected: 01/04/2024, Expires: 4 Start: 01-03-2024 3 comp foot exam completed DIABETIC FOOT EXAM [facility] Start: 01-03-2024 ANNUAL PCP TEAM CHRONIC DISEASE VISIT ANNUAL PCP TEAM CHRONIC DISEASE VISIT [facility] Start: 01-03-2024 COVID-19 VACCINE (#1) COVID-19 VACCINE (#1) [facility] Comment on above: Postponed from 01/07/1973 (Declined at t his time) Start: 01-03-2024 Diabetic foot examination Diabetic Foot Exam [facility] Start: 01-03-2024 HEPATITIS B (1 of 3 - 3-dose series) HEPATITIS B (1 of 3 - 3-dose series) [facility] Comment on above: Postponed from 1972 (Declined at t his time) Start: 01-03-2024 Hepatitis B Vaccine (1 of 3 - 19+ 3-dose series) Hepatitis B Vaccine (1 of 3 - 19+ 3-dose series) [facility] Comment on above: Postponed from 1989 (Declined at t his time) Start: 01-03-2024 Hepatitis B Vaccine (1 of 3 - 3-dose series) Hepatitis B Vaccine (1 of 3 - 3-dose series) [facility] Comment on above: Postponed from 1972 (Declined at t his time) Start: 01-03-2024 HEPATITIS C SCREENING HEPATITIS C SCREENING [facility] Comment on above: Postponed from 1990 (Declined at t his time) Start: 01-03-2024 Hepatitis C screening Hepatitis C Screening [facility] Comment on above: Postponed from 1990 (Declined at t his time) Start: 01-03-2024 HIV SCREENING HIV SCREENING [facility] Comment on above: Postponed from 1990 (Declined at t his time) Start: 01-03-2024 HIV screening HIV Screening [facility] Comment on above: Postponed from 1990 (Declined at t his time) Start: 01-03-2024 SHINGRIX VACCINE (1 of 2) SHINGRIX VACCINE (1 of 2) [facility] Comment on above: Postponed from 2022 (Declined at t his time) Start: 12-25-2023 End: 03-25-2024 Hemoglobin A1c in Blood HGB A1C Lab Routine Controlled type 2 diabetes mellitus without complication, without long-term current use of insulin (HCC) Expected: 12/25/2023, Expires: 03/25/2024 [facility] Work Phone: Comment on above: Expected: 12/25/2023, Expires: Start: 12-25-2023 Hemoglobin A1c measurement HbA1C [facility] Start: 12-25-2023 Hemoglobin A1c/Hemoglobin.total in Blood HbA1C [facility] Start: 12-08-2023 Hepatitis B surface antibody level LDL CHOLESTEROL [facility] Start: 07-30-2023 Behavioral Health Screening Behavioral Health Screening [facility] Start: 07-30-2023 Depression Assessment Depression Assessment [facility] Start: 07-02-2023 End: 10-01-2023 Nuclear Ab [Presence] in Serum by Immunoassay [facility] Work Phone: Comment on above: Expected: 07/02/2023, Expires: 4 Start: 06-19-2023 End: 09-18-2023 CBC W Auto Differential panel - Blood CBC + DIFF Lab Routine Controlled type 2 diabetes mellitus without complication, without long-term current use of insulin (HCC) Hypertriglyceridemia Expected: 06/19/2023, Expires: 09/18/2023 [facility] Work Phone: Comment on above: Expected: 06/19/2023, Expires: 4 Start: 06-19-2023 End: 09-18-2023 Comprehensive metabolic 2000 panel - Serum or Plasma COMP METABOLIC PANEL Lab Routine Controlled type 2 diabetes mellitus without complication, without long-term current use of insulin (HCC) Hypertriglyceridemia Expected: 06/19/2023, Expires: 09/18/2023 [facility] Work Phone: Comment on above: Expected: 06/19/2023, Expires: 4 Start: 06-19-2023 End: 09-18-2023 Hemoglobin A1c in Blood HGB A1C Lab Routine Controlled type 2 diabetes mellitus without complication, without long-term current use of insulin (HCC) Expected: 06/19/2023, Expires: 09/18/2023 [facility] Work Phone: Comment on above: Expected: 06/19/2023, Expires: 4 Start: 06-19-2023 End: 09-18-2023 Lipid 1996 panel - Serum or Plasma LIPID PANEL BASIC Lab Routine Hypertriglyceridemia Expected: 06/19/2023, Expires: 09/18/2023 [facility] Work Phone: Comment on above: Expected: 06/19/2023, Expires: 4 Start: 06-19-2023 End: 09-18-2023 Thyrotropin [Units/volume] in Serum or Plasma TSH BLD Lab Routine Borderline abnormal thyroid function test Expected: 06/19/2023, Expires: 09/18/2023 [facility] Work Phone: Comment on above: Expected: 06/19/2023, Expires: Start: 06-09-2023 Hemoglobin A1c/Hemoglobin.total in Blood HBA1C [facility] Start: 03-30-2023 Covid-19 Vaccine () Covid-19 Vaccine () [facility] Start: 03-30-2023 Influenza vaccination [facility] Start: 01-02-2023 End: 03-04-2023 ALBUMIN/CREAT RATIO RND UR ALBUMIN/CREAT RATIO RND UR Lab Routine Controlled type 2 diabetes mellitus without complication, without long-term current use of insulin (HCC) Expected: 01/02/2023, Expires: 03/04/2023 [facility] Work Phone: Comment on above: Expected: 01/02/2023, Expires: 3 Start: 01-02-2023 End: 03-04-2023 Cobalamin (Vitamin B12) [Mass/volume] in Serum or Plasma VITAMIN B12 BLOOD Lab Routine Paresthesia Expected: 01/02/2023, Expires: 03/04/2023 [facility] Work Phone: Comment on above: Expected: 01/02/2023, Expires: 3 Start: 01-02-2023 End: 03-04-2023 Folate [Mass/volume] in Serum or Plasma FOLATE SERUM Lab Routine Paresthesia Expected: 01/02/2023, Expires: 03/04/2023 [facility] Work Phone: Comment on above: Expected: 01/02/2023, Expires: 3 Start: 01-02-2023 End: 03-04-2023 PROTEIN ELECTROPHORESIS SERUM W/INTERP PROTEIN ELECTROPHORESIS SERUM W/INTERP Lab Routine Paresthesia Expected: 01/02/2023, Expires: 03/04/2023 [facility] Work Phone: Comment on above: Expected: 01/02/2023, Expires: 3 Start: 01-02-2023 End: 03-04-2023 Thyrotropin [Units/volume] in Serum or Plasma TSH BLD Lab Routine Paresthesia Expected: 01/02/2023, Expires: 03/04/2023 [facility] Work Phone: Comment on above: Expected: 01/02/2023, Expires: Start: 12-06-2022 End: 02-05-2023 25-hydroxyvitamin D3 [Mass/volume] in Serum or Plasma VITAMIN D 25 HYDROXY Lab Routine Hyperglycemia Weight loss Expected: 12/06/2022, Expires: 02/05/2023 [facility] Work Phone: Comment on above: Expected: 12/06/2022, Expires: 3 Start: 12-06-2022 End: 02-05-2023 CBC W Auto Differential panel - Blood CBC + DIFF Lab Routine Hyperglycemia Weight loss Expected: 12/06/2022, Expires: 02/05/2023 [facility] Work Phone: Comment on above: Expected: 12/06/2022, Expires: Start: 12-06-2022 End: 02-05-2023 Comprehensive metabolic 2000 panel - Serum or Plasma COMP METABOLIC PANEL Lab Routine Hyperglycemia Weight loss Expected: 12/06/2022, Expires: 02/05/2023 [facility] Work Phone: Comment on above: Expected: 12/06/2022, Expires: 3 Start: 12-06-2022 End: 02-05-2023 Hemoglobin A1c in Blood HGB A1C Lab Routine Hyperglycemia Weight loss Expected: 12/06/2022, Expires: 02/05/2023 [facility] Work Phone: Comment on above: Expected: 12/06/2022, Expires: 3 Start: 12-06-2022 End: 02-05-2023 Lipid 1996 panel - Serum or Plasma LIPID PANEL BASIC Lab Routine Screening for lipid disorders Expected: 12/06/2022, Expires: 02/05/2023 [facility] Work Phone: Comment on above: Expected: 12/06/2022, Expires: 3 Start: 12-06-2022 End: 02-05-2023 Thyrotropin [Units/volume] in Serum or Plasma TSH BLD Lab Routine Weight loss Expected: 12/06/2022, Expires: 02/05/2023 [facility] Work Phone: Comment on above: Expected: 12/06/2022, Expires: 3 Start: 07-30-2022 DEPRESSION ASSESSMENT DEPRESSION ASSESSMENT [facility] Start: 2022 SHINGRIX VACCINE (1 of 2) SHINGRIX VACCINE (1 of 2) [facility] Start: 07-08-2019 LIPID SCREEN LIPID SCREEN [facility] Start: 10-13-2018 Urine microalbumin profile DTAP,TDAP,TD (2 - Td or Tdap) [facility] Start: 2017 COLOGUARD (FIT-DNA) COLOGUARD (FIT-DNA) [facility] Start: 2017 Colonoscopy COLONOSCOPY [facility] Start: 2017 COLORECTAL CANCER SCREENING COLORECTAL CANCER SCREENING [facility] Start: [address] COLONOGRAPHY [facility] Start: 2017 DIABETES SCREEN DIABETES SCREEN [facility] Start: 2017 FECAL OCCULT BLOOD FECAL OCCULT BLOOD [facility] Start: 2017 Screening for malignant neoplasm of colon [facility] Start: 2017 SIGMOIDOSCOPY SIGMOIDOSCOPY [facility] Start: 1991 Hepatitis B Vaccine (1 of 3 - 19+ 3-dose series) Hepatitis B Vaccine (1 of 3 - 19+ 3-dose series) [facility] Start: 1991 Pneumococcal Vaccine: 50+ (1 of 2 - PCV) Pneumococcal Vaccine: 50+ (1 of 2 - PCV) [facility] Start: 1990 Anxiety Screening Anxiety Screening [facility] Start: 1990 Depression Screening Depression Screening [facility] Start: 1990 HEPATITIS C SCREENING HEPATITIS C SCREENING [facility] Start: 1990 Hepatitis C screening Hepatitis C Screening [facility] Start: 1990 HIV SCREENING HIV SCREENING [facility] Start: 1990 HIV screening HIV Screening [facility] Start: 1982 Hepatitis B screening URINE ALBUMIN:CREATININE RATIO [facility] Start: 1982 Hepatitis C antibody, confirmatory test DILATED RETINAL EXAM [facility] Start: 1978 PNEUMOCOCCAL (1 - PCV) PNEUMOCOCCAL (1 - PCV) [facility] Start: 1978 Pneumococcal vaccination Pneumococcal Vaccine (1 - PCV) [facility] Start: 01-07-1973 COVID-19 VACCINE (#1) COVID-19 VACCINE (#1) [facility] Start: 1972 HEPATITIS B (1 of 3 - 3-dose series) HEPATITIS B (1 of 3 - 3-dose series) [facility] End: 02-11-2026 BD DXA TRABECULAR BONE SCORE (TBS) BD DXA TRABECULAR BONE SCORE (TBS) Radiology Routine Osteopenia of multiple sites 1 Occurrences starting 01/12/2025 until 02/11/2026 [facility] Comment on above: 1 Occurrences starting 01/12/2025 until 02/11/2026 BD DXA TRABECULAR SONALI NE SCORE (TBS) BD DXA TRABECULAR BONE SCORE (TBS) Radiology Routine Osteopenia of multiple sites 02/03/2025 11:33 AM EDT [facility] End: 02-11-2026 DXA Skeletal system.axial Views for bone density DXA-AXIAL SKELETON Radiology Routine Osteopenia of multiple sites 1 Occurrences starting 01/12/2025 until 02/11/2026 [facility] Comment on above: 1 Occurrences starting 01/12/2025 until 02/11/2026 DXA Skeletal system.axial Views for bone density DXA-AXIAL SKELETON Radiology Routine Osteopenia of multiple sites 02/03/2025 11:33 AM EDT [facility] Work Phone: End: 02-12-2025 PAP TITRATION PSG (CPAP, BIPAP, ASV) PAP TITRATION PSG (CPAP, BIPAP, ASV) Procedures Routine MIKHAIL (obstructive sleep apnea) CSA (central sleep apnea) 1 Occurrences starting 01/14/2024 until 02/12/2025 [facility] Work Phone: Comment on above: 1 Occurrences starting 01/14/2024 until 02/12/2025 End: 05-18-2025 PAP TITRATION PSG (CPAP, BIPAP, ASV) PAP TITRATION PSG (CPAP, BIPAP, ASV) Procedures Routine Central sleep apnea MIKHAIL (obstructive sleep apnea) 1 Occurrences starting 04/18/2024 until 05/18/2025 [facility] Work Phone: Comment on above: 1 Occurrences starting 04/18/2024 until 05/18/2025 Patient referral [facility] Work Phone: End: 02-15-2026 US Abdomen RUQ US ABD RIGHT UPPER QUADRANT Radiology Routine Elevated liver enzymes 1 Occurrences starting 01/16/2025 until 02/15/2026 [facility] Work Phone: Comment on above: 1 Occurrences starting 01/16/2025 until 02/15/2026 US Abdomen RUQ US ABD RIGHT UPP ER QUADRANT Radiology Routine Elevated liver enzymes 01/19/2025 10:41 AM EDT [facility] End: 01-19-2025 Us abdominal real time w/image limited [facility] Work Phone: Comment on above: ONCE for 1 Occurrences starting 01/20/20 until 01/19/2025 End: 03-13-2026 US Kidney - bilateral and Urinary bladder US KIDNEY/BLADDER Radiology Routine Renal insufficiency 1 Occurrences starting 02/11/2025 until 03/13/2026 [facility] Work Phone: Comment on above: 1 Occurrences starting 02/11/2025 until 03/13/2026 End: 03-04-2026 XR Chest PA and Lateral XR CHEST 2V FRONTAL/LAT Radiology Routine Bacterial pneumonia 1 Occurrences starting 02/02/2025 until 03/04/2026 [facility] Work Phone: Comment on above: 1 Occurrences starting 02/02/2025 until 03/04/2026 XR Chest PA and Lateral XR CHEST 2V FRONTAL/LAT Radiology Routine Bacterial pneumonia 02/23/2025 10:16 AM EDT [facility] Work Phone: [facility] Immunizations Immunization Date Immunization Notes Care Provider Inez martinez 01-02-2023 tetanus toxoid, redu melissa diphtheria toxoid, and acellular pertussis vaccine, adsorbed Edouard Noland MD Work Phone: [facility] 05-21-2019 influenza, injectabl e, quadrivalent, contains preservative Edouard Noland MD Work Phone: [facility] 05-21-2019 influenza virus vaccine, unspecified formulation Edouard Noland MD Work Phone: [facility] 04-30-2017 influenza, injectabl e, quadrivalent, contains preservative Edouard Noland MD Work Phone: [facility] Work Phone: 05-27-2016 influenza, injectabl e, quadrivalent, contains preservative Edouard Noland MD Work Phone: [facility] 07-06-2014 influenza, seasonal, injectable Edouard Noland MD Work Phone: [facility] 10-13-2008 tetanus toxoid, redu melissa diphtheria toxoid, and acellular pertussis vaccine, adsorbed Edouard Noland MD Work Phone: [facility] Work Phone: Payers Date Payer Category Payer Self-pay 2022 Medicaid [id number] 2022 [employer] Blue [employer] [id number] 2022 Unknown [id number] 2022 Unknown [id number] 2014 Unknown [employer] [id number] Unknown [id number] Unknown [id number] Unknown [id number] Unknown [id number] Social History Date Type Detail Facility Start: 03-18-2012 End: 01-21-2025 Tobacco smoking status NHIS Never smoked tobacco [facility] Start: 03-18-2012 Tobacco use and exposure Smoke less tobacco non-user [facility] Start: 05-27-2019 End: 01-12-2025 Alcohol intake Current non-drinker of alcohol (finding) [facility] Start: 1970 Sex Assigned At Not on file C [facility] Start: 01-02-2023 History SDOH Alcohol Frequency 1 [facility] Start: 01-02-2023 History SDOH Alcohol Std Drinks 0 [facility] Start: 01-02-2023 History SDOH Social Connections Phone 98 [facility] Start: 01-02-2023 History SDOH Social Connections Judaism 3 [facility] Start: 01-02-2023 History SDOH Social Connections Membership 2 [facility] Start: 01-02-2023 History SDOH Physica l Activity DPW 6 [facility] Start: 01-02-2023 History SDOH Financial 5 [facility] Start: 01-02-2023 End: 04-21-2024 History of Social function [facility] Start: 01-02-2023 End: 04-21-2024 Social connection and isolation panel [facility] In a typical week, h ow many times do you talk on the telephone with family, friends, or neighbors? Patient refused [facility] Do you belong to any clubs or organizations such as restoration groups, unions, fraternal or athletic groups, or school groups? No [facility] Are you now , , , , never or living with a partner? [facility] How often to you hav e a drink containing alcohol? Never [facility] Do you feel stress - tense, restless, nervous, or anxious, or unable to sleep at night because your mind is troubled all the time - these days [OSQ] Not at all [facility] (I/We) worried whemilagro er (my/our) food would run out before (I/we) got money to buy more. Never true [facility] How hard is it for y ou to pay for the very basics like food, housing, medical care, and heating Not very hard [facility] Do you feel stress - tense, restless, nervous, or anxious, or unable to sleep at night because your mind is troubled all the time - these days [OSQ] Only a little [facility] Start: 01-14-2016 Alcohol Alcohol [facility] Start: 01-14-2016 Tobacco Use Tobacco Use [facility] Start: 1970 Sex Assigned At Male W [facility] Medical Equipment Procedure Code Equipment Code Equipment Origin al Text Equipment Identifier Dates Test blood sugar(s) 1 times daily. Dx: Type 2 DM - Controlled E11.9 Insulin: No [id number], [id number] Start: 01-02-2023 Comment on above: Test blood sugar(s) 1 times daily. Dx: Type 2 DM - Controlled E11.9 Insulin: No Functional Status Date Assessment Result Facility 11-16-2014 Are you deaf, or do you have serious difficulty hearing No 11/16/2014 3:27 PM Leonie Yadav LPN No [facility] 11-16-2014 Are you blind, or do you have serious difficulty seeing, even when wearing glasses No 11/16/2014 3:27 PM Leonie Yadav LPN No [facility] 11-16-2014 Do you have serious difficulty walking or climbing stairs No 11/16/2014 3:27 PM Leonie Yadav LPN No [facility] 11-16-2014 Do you have difficul ty dressing or bathing No 11/16/2014 3:27 PM Leonie Yadav LPN No [facility] 11-16-2014 Because of a physica l, mental, or emotional condition, do you have difficulty doing errands alone such as visiting a physician's office or shopping No 11/16/2014 3:27 PM Leonie Yadav LPN No [facility] Mental Status Date Assessment Result Facility 06-25-2025 Cognitive function Voice/Name Lohn C [facility] Work Phone: 11-16-2014 Because of a physica l, mental, or emotional condition, do you have serious difficulty concentrating, remembering, or making decisions No 11/16/2014 3:27 PM EDT Leonie Zheng LPN No [facility] Clinical Notes 08-07-2008 to 02-25-2025 Telephone Encounter - Leonie Zheng LPN - 02/25/2025 3:26 PM EDTTelephone Encounter - Leonie Zheng LPN - 02/25/2025 3:26 PM EDTTelephone Encounter - Edouard Noland MD - 02/25/2025 3:08 PM EDT Note Date & Type Note Facility 02-25-2025 Telephone encounter Note Faxed as requested. [facility] 02-25-2025 Miscellaneous Notes Faxed as requested. Spoke [...] inflammatory vs possible tumor. to take to [facility] ER. Spoke with er. Please fax xray from today and labs to them documented in this encounter [facility] 02-25-2025 Telephone encounter Note Spoke with regarding [...] inflammatory vs possible tumor. to take to [facility] ER. Spoke with er. Please fax xray from today and labs to them [facility] 02-23-2025 History of Present illness Narrative Radiology [...] PATIENT PRESENTS WITH AN IMPLANTABLE OR ATTACHED COOK PIE: No RADIOLOGY DEPARTMENT: General X-ray: Exam(s) Completed: Chest X-Ray PERIPHERAL IV DATA: Not applicable SIGNED BY: CHARLENE Feliz) February 23, 2025 10:49 AM documented in this encounter [facility] 02-23-2025 Note HNO ID: [id number] Author: ALISA AVELAR RT(R) Service: ? Author [...] PATIENT PRESENTS WITH AN IMPLANTABLE OR ATTACHED COOK PIE: No RADIOLOGY DEPARTMENT: General X-ray: Exam(s) Completed: Chest X-Ray PERIPHERAL IV DATA: Not applicable SIGNED BY: RT Trini(R) February 23, 2025 10:49 AM [facility] 02-16-2025 Telephone encounter Note Images from the original note were not included. [facility] Work Phone: 02-16-2025 Miscellaneous Notes Images from the original note were not included. documented in this encounter [facility] 02-12-2025 Telephone encounter Note Patient's was made aware of the results.and verbalizes understanding. She said he already has a follow up appointment scheduled. She will make the ultrasound appointment next week and make sure he gets his labs completed Keira Loomis Ma [facility] 02-12-2025 Miscellaneous Notes Patient's was made aware [...] Edouard Noland MD to [facility] [place] 02/11/25 8:38 AM Result Note Waiting on [...] PANEL Associated Results documented in this encounter [facility] 02-12-2025 Telephone encounter Note Images from the [...] well. Edouard Noland MD to [facility] [place] 02/11/25 8:38 AM Result Note Waiting on pending but will take a while for some. Calcium is a little better but still pretty high. See endo as we discussed. Kidney function is still a little high. Continue to push fluids. Avoid nsaids and supplements. Recheck bmp, cbc in two weeks and ua. Check renal us BASIC METABOLIC PANEL Associated Results [facility] 02-03-2025 History of Present illness Narrative Radiology [...] PATIENT PRESENTS WITH AN IMPLANTABLE OR ATTACHED COOK PIE: No RADIOLOGY DEPARTMENT: Bone Density PERIPHERAL IV DATA: Not applicable SIGNED BY: RT Patricia(Ema) February 03, 2025 11:33 AM documented in this encounter [facility] 02-03-2025 Note HNO ID: [id number] Author: PATTI MOLINA RT(R) Service: ? Author [...] PATIENT PRESENTS WITH AN IMPLANTABLE OR ATTACHED COOK PIE: No RADIOLOGY DEPARTMENT: Bone Density PERIPHERAL IV DATA: Not applicable SIGNED BY: RT Patricia(Ema) February 03, 2025 11:33 AM [facility] 02-02-2025 Telephone encounter Note Phoned patient Ivonne left message to return call and ask for packing clerk can assit with scheduling for the Endocrine appt, on her voicemail. [facility] 02-02-2025 Miscellaneous Notes Phoned patient Ivonne left message to return call and ask for packing clerk can assit with scheduling for the Endocrine [...] of the hypercalcemia documented in this encounter [facility] 02-02-2025 Telephone encounter Note Phoned Ivonne and left message with notes from Dr Noland on her voicemail. Order in computer for the chest xray. [facility] 02-02-2025 Miscellaneous Notes Phoned Ivonne and left [...] diagnosis. Please advise documented in this encounter [facility] 02-02-2025 Telephone encounter Note Please get set up [facility] 02-02-2025 Telephone encounter Note Can be done in next few weeks. [facility] 02-02-2025 Telephone encounter Note Patient Ivonne returned call and went over notes from Dr Noland with understanding. She said no he is not set up with Endocrine as yet. She will get his labs done. He has bone density scheduled for tomorrow. She is hoping to get Endocrine appt set up soon. [facility] 02-02-2025 Telephone encounter Note Patient Ivonne calling asking when did PCP want to have him do repeat chest xray? Can leave her a message, she works until 8 pm today. Pending order needs diagnosis. Please advise [facility] 01-28-2025 Telephone encounter Note Called and left a detailed voicemail notifying patient's of providers message. Clinic phone number was left for patient's to call back and answer providers questions. Patti Drew, AMIE [facility] 01-28-2025 Telephone encounter Note Saw he did go to ER while I was out. Needs his labs rechecked and keep his follow up. Did they set up appt to see endo because of the hypercalcemia [facility] 01-28-2025 Telephone encounter Note See te [facility] 01-28-2025 Miscellaneous Notes See te Patient's spouse presented at assistant front end manager wanting to make sure that Dr. Noland/staff were aware that the patient will need a new prescription for the Wyatt 3 Plus as the original is being discontinued. Please assist. documented in this encounter [facility] 01-28-2025 Telephone encounter Note Patient's spouse presented at assistant front end manager wanting to make sure that Dr. Noland/staff were aware that the patient will need a new prescription for the Wyatt 3 Plus as the original is being discontinued. Please assist. [facility] 01-23-2025 Telephone encounter Note Spoke with and advised of provider message. Keira Loomis MA January 23, 2025 10:06 AM [facility] 01-23-2025 Miscellaneous Notes Spoke with and advised [...] and quit smoking. documented in this encounter [facility] 01-23-2025 Telephone encounter Note First off, make [...] to indicate if repeat imaging is needed. [facility] 01-23-2025 Progress note Formatting of t his [...] indicate if repeat imaging is needed. T [facility] Work Phone: 01-23-2025 Telephone encounter Note Spoke [...] asking what he can do or take? [facility] 01-23-2025 Telephone encounter Note ----- Message from [...] or very little alcohol, and quit smoking. [facility] 01-22-2025 Progress note Formatting of t his [...] or very little alcohol, and quit smoking. [facility] 01-22-2025 Radiology Diagnostic study note [facility] Imaging Services [address] [place] [address] Chest 1 View MR#: [id number] Acct: [id number] Name: TRESA MUÑOZ Rep #: [id number] : 1970 M 54 From: Frandy Gutierrez MD PCP: Dr. Edouard Noland MD Status: REG E R Study:Chest 1 View Date of Exam: Exam# [id number] Ordering Dr: Rosa Caceres DO PROCEDURE: CHEST [...] perihilar and lower lobe infiltrates. Reading Location: [place] [address] CC: Dr. Edouard Noland MD; DO Shelly Santos Roof Slater: Signed [facility] 01-21-2025 Radiology Diagnostic study note [facility] Imaging Services [address] [place] [address] Chest 1 View (Portable) MR#: [id number] Acct: [id number] Name: TRESA MUÑOZ Rep #: [id number] : 1970 M 54 From: Luz Baldwin MD PCP: Dr. Edouard Noland MD Status: REG E R Study:Chest 1 View (Portable) Date of Exam: 01/21/25 Exam# [id number] Ordering Dr: Rosa Caceres DO PROCEDURE: CHEST [...] may reflect pneumonitis or pneumonia. Reading Location: [id number] CC: Dr. Edouard Noland MD; Elliot Caceres DO ~ Roof Slater: Signed [facility] 01-21-2025 History of Present illness [...] not present. Adherence: denies missed doses. Pharmacy: [facility] [address] [place] [phone] - [address] - [phone] 74 Rx coverage: Payor: ANTHEM / Plan: [...] ST 16/11 cmH2O with BUR [address] [facility] dihydroberberine (BERBERINE ES-5 ORAL) Take 1 [...] spent: 23 mins documented in this encounter [facility] 01-21-2025 Note HNO ID: [id number] Author: NOBLE LAWSON RPh Service: ? Author Type: Pharmacist Type: Progress Notes Filed: 01/21/2025 13:39 Note Text: Primary Care Pharmacy Visit CC (Reason for Consult): Diabetes (E11.9) Controlled type 2 diabetes mellitus without complication, without long-term current use of insulin ([facility]) (primary encounter diagnosis) Goal: A1c [...] not present. Adherence: denies missed doses. Pharmacy: [facility] [address] [place] [phone] - [address] - [phone] 74 Rx coverage: Payor: ANTHEM / Plan: [...] ST 16/11 cmH2O with BUR [address] [facility] dihydroberberine (BERBERINE ES-5 ORAL) Take 1 [...] as needed. T (more content not included)... [facility] 01-19-2025 History of Present illness Narrative Radiology [...] PATIENT PRESENTS WITH AN IMPLANTABLE OR ATTACHED COOK PIE: No RADIOLOGY DEPARTMENT: Ultrasound PERIPHERAL IV DATA: Not applicable SIGNED BY: Porsha De Paz RDMS RVKody January 19, 2025 11:13 AM documented in this encounter [facility] 01-19-2025 Note HNO ID: [id number] Author: PORSHA DE PAZ RDMS Service: ? Author Type: Agricultural Technical Officer Type: Progress Notes Filed: 01/19/2025 11:13 Note [...] PATIENT PRESENTS WITH AN IMPLANTABLE OR ATTACHED COOK PIE: No RADIOLOGY DEPARTMENT: Ultrasound PERIPHERAL IV DATA: Not applicable SIGNED BY: Porsha De Paz RDMS RVT January 19, 2025 11:13 AM [facility] 01-16-2025 Telephone encounter Note Spoke with patient is feeling overall ok. Couple of rough days but doing ok now. They are currently stuck in [place] with their van broken down. Will call when they get home to schedule. [facility] 01-16-2025 Miscellaneous Notes Spoke with patient is [...] up with one of when back in [facility]. I am still waiting on all your labs. If you feels worse, please go to Er in [place]. Follow up with one of us when you return. Your one vit d test is high. Again, I would stop all supplements. I am hoping they are the culprit and driving your calcium and vit d too high which in turn is dehydrating you. We will contact you when we get all the labs back. documented in this encounter [facility] 01-16-2025 Telephone encounter Note See below. He did not read the my chart. We are still waiting on his pthrp but it takes a while. His vit d is high and liver alk phos is up. Needs liver us also. Make sure has follow up with one of when back in [facility]. I am still waiting on all your labs. If you feels worse, please go to Er in [place]. Follow up with one of us when you return. Your one vit d test is high. Again, I would stop all supplements. I am hoping they are the culprit and driving your calcium and vit d too high which in turn is dehydrating you. We will contact you when we get all the labs back. [facility] 01-14-2025 Telephone encounter Note Trulicity has been approved. Mailbox is full unable to leave a message for patient. Will send Mychart message. [facility] 01-14-2025 Miscellaneous Notes Trulicity has been approved. [...] his BS-- Still waiting on PA for [facility]. Leonora Smith LPN I would hold [...] the PA has not gone through for [facility] yet. Pt will come in to get [...] call or ER documented in this encounter [facility] 01-13-2025 Telephone encounter Note Ok. Patient is declining treatment. Will await pending labs. Thank you [facility] 01-13-2025 Miscellaneous Notes Ok. Patient is declining treatment. Will await pending labs. Thank you Spoke with patient and reviewed provider's message with him. Patient reports that he already left for [place]. Advised patient I could forward the information to one of the ER's along the way to [place] or in [place] if he could provide Name of the [...] calcium and labs documented in this encounter [facility] 01-13-2025 Telephone encounter Note Images from the original note were not included. rior authorization approved Payer: [employer] [phone] Note from payer: CaseId:[id number];Status:Approved;Re view Type:Prior Auth;Coverage Start Date:12/14/2024;Coverage End Date:01/13/2026; Approval Details Authorized from December 14, 2024 to January 13, 2026 Electronic appeal: Not supported View History Pharmacy Benefits Open Encounter TRESA MUÑOZ ([employer]) Covered: Retail, Mail Order Unknown: Specialty, Long-Term Care BIN: [id number] : 1970 Group ID: [id number] PCN: [id number] Legal sex: M Group name: [employer] Address: [address] [place] [address] Medication Being Authorized dulaglutide (TRULICITY) 0.75 mg/0.5 mL pen injector Inject 0.75 mg subcutaneously one time a week. Dispense: 6 mL Refills: 3 Start: 01/12/2025 End: 01/12/2026 Class: Normal Diagnoses: Controlled type 2 diabetes mellitus without complication, without long-term current use of insulin (HCC) This order has been released to its destination. To be filled at: [facility] [address] [place] [phone] - [address] - [phone] 74 Pharmacy notified. [facility] 01-13-2025 Miscellaneous Notes Images from the original note were not included. rior authorization approved Payer: [employer] [phone] Note from payer: CaseId:[id number];Status:Approved;Re view Type:Prior Auth;Coverage Start Date:12/14/2024;Coverage End Date:01/13/2026; Approval Details Authorized from December 14, 2024 to January 13, 2026 Electronic appeal: Not supported View History Pharmacy Benefits Open Encounter TRESA MUÑOZ [employer] ([employer]) Covered: Retail, Mail Order Unknown: Specialty, Long-Term Care BIN: [id number] : 1970 Group ID: [id number] PCN: [id number] Legal sex: M Group name: [employer] Address: [address] [place], [place] [id number] Medication Being Authorized dulaglutide (TRULICITY) 0.75 mg/0.5 mL pen injector Inject 0.75 mg subcutaneously one time a week. Dispense: 6 mL Refills: 3 Start: 01/12/2025 End: 01/12/2026 Class: Normal Diagnoses: Controlled type 2 diabetes mellitus without complication, without long-term current use of insulin (HCC) This order has been released to its destination. To be filled at: [facility] [address] [place] [phone] - [address] [facility] - [phone] 74 Pharmacy notified. Electronic PA rec'd and completed for dulaglutide (TRULICITY) 0.75 mg/0.5 mL pen injector documented in this encounter [facility] 01-13-2025 Telephone encounter Note Electronic JAYLON reddy and completed for dulaglutide (TRULICITY) 0.75 mg/0.5 mL pen injector [facility] 01-13-2025 Telephone encounter Note Spoke with patient and reviewed provider's message with him. Patient reports that he already left for [place]. Advised patient I could forward the information to one of the ER's along the way to [place] or in [place] if he could provide Name of the hospital. Patient declined and stated he was just going to watch what he ate and increase his fluid intake. Advised patient that I would let Dr Noland know. Inez Oviedo LPN [facility] 01-13-2025 Telephone encounter Note Not all labs are back. But just called with a a critically high ionized calcium. Can cause symptoms like the numbness and tingling etc. High calcium can be an emergency. It is high enough, he likely requires iv fluids and may need further work up. Send to Er of his choice. Fax yesterdays notes, todays critical calcium and labs [facility] 01-13-2025 Note HNO ID: [id number] Author: EDOUARD NOLAND MD Service: ? Author [...] was a couple of years ago at [facility]. Fatigue: - Variable fatigue, requiring a [...] ST 16/11 cmH2O with BUR [address] [facility] lutein-zeaxanthin 25-5 mg cap Take 1 [...] Diabetes mellitus type 2, controlled, without complications ([facility]) 01/02/2023 GERD (gastroesophageal reflux disease) [...] edema Respiratory: (+ (more content not included)... [facility] 01-13-2025 Telephone encounter Note Can we see if there is any way we can get assistance for the trulicity. Those herbs may well be contributing to his calcium and likely are not helping his sugar. [facility] 01-13-2025 Telephone encounter Note Pt's is [...] on PA for Trulicity. Leonora Smith LPN [facility] 01-13-2025 Telephone encounter Note I would hold on any supplements [facility] 01-13-2025 Telephone encounter Note Pt's called [...] Please call and advise. Patti Drew RN [facility] 01-13-2025 Telephone encounter Note Not all [...] severe muscle pain etc, call or ER [facility] 01-12-2025 Instructions Edouard Noland MD - 01/12/2025 [...] the results, and send a list via SmartCare system in two weeks so we can decide [...] snoring. - Schedule an eye exam with [facility]. - Fill and use Viagra [...] in six months. documented in this encounter [facility] 10-06-2024 History of Present illness Narrative Images [...] not present. Adherence: denies missed doses. Pharmacy: [facility] [address] [place] [phone] - [address] - [phone] 74 Rx coverage: Payor: ANTHEM / Plan: [...] ST 14/10 cmH2O with BUR 12 BPM [facility] dihydroberberine (BERBERINE ES-5 ORAL) Take 1 tablet [...] verbalized understanding of instructions. Noble Lawson PharmD, [facility] Primary Care Clinical Pharmacist Time spent: 22 mins documented in this encounter [facility] 10-06-2024 Note HNO ID: [id number] Author: NOBLE LAWSON RPh Service: ? Author [...] not present. Adherence: denies missed doses. Pharmacy: [facility] [address] [place] [phone] - [address] [facility] [phone] 74 Rx coverage: Payor: ANTHEM / Plan: [...] 14/10 cmH2O with BUR [address] [facility] dihydroberberine (BERBERINE ES-5 ORAL) Take 1 [...] metFORMIN ER (GLUCOPHAGE (more content not included)... [facility] 09-22-2024 Telephone encounter Note NOV 01/12/25 LES 07/07/24 [facility] 09-22-2024 Miscellaneous Notes 01/12/25 LES 07/07/24 documented in this encounter [facility] 09-01-2024 History of Present illness Narrative Images from the original note were not included. [facility] Sleep Disorders Center Follow up/ Established patient [...] study that was done on 02/09/24 at [facility] that should have been transitioned to biPAP but wasn't. It was started at CPAP 7 rather than 9 cmH2O as requested, and his AHI wasn't normalized including elevated centrals yet he wasn't transitioned to biPAP. We have requested [facility] retest him at no cost to the patient. Order for Bilevel titration starting at 8/4 cmH2O. Advance to biPAP ST if needed for central events. Will order new device from [facility], pt wants to switch to this DME Case discussed with Dr Ike Cowan, NURSE TRANSPLANT.COST MANAGER Here for follow up for CSA on [...] (AHI): 71 Treatment : [facility] History: Uses Bilevel PAP ST for [...] near accidents due to drowsy drivin 09/01/2024 [place] Sleepiness Scale Score 9 (No clinically significant [...] ST 14/10 cmH2O with BUR 12 BPM [facility] gabapentin (NEURONTIN) 300 mg capsule Take 1 [...] Jh Cowan APRN.RUBIN documented in this encounter [facility] 09-01-2024 Note HNO ID: [id number] Author: JH COWAN APRN.CNP Service: ? Author Type: Nurse Practitioner Type: Progress Notes Filed: 09/02/2024 16:20 Note Text: [facility] Sleep Disorders Center Follow up/ Established patient [...] study that was done on 02/09/24 at [facility] that should have been transitioned to biPAP but wasn't. It was started at CPAP 7 rather than 9 cmH2O as requested, and his AHI wasn't normalized including elevated centrals yet he wasn't transitioned to biPAP. We have requested [facility] retest him at no cost to the patient. Order for Bilevel titration starting at 8/4 cmH2O. Advance to biPAP ST if needed for central events. Will order new device from [facility], pt wants to switch to this DME Case discussed with Dr Ike Cowan, NURSE TRANSPLANT.COST MANAGER Here for follow up for CSA on [...] near accidents due to drowsy drivin 09/01/2024 [place] Sleepiness Scale Score 9 (No clinically significant [...] MIKHAIL G47.33 COMP (more content not included)... [facility] 07-31-2024 Telephone encounter Note Pt called and is notified of providers results and instructions. Pt voices understanding. Patti Drew RN [facility] 07-31-2024 Miscellaneous Notes Pt called and is [...] Bobbi Hart APRN.RUBIN documented in this encounter [facility] 07-29-2024 Telephone encounter Note Can please let [...] Everything else looks normal/stable. Bobbi Hart APRN.RUBIN [facility] 07-07-2024 Instructions Bobbi Hart APRN.CNP - 07/07/2024 9:08 AM EST Return for fasting labs. Continue the same medications. Recheck in 6 months. Sooner if needed. documented in this encounter [facility] 07-07-2024 Note HNO ID: [id number] Author: BOBBI HART APRN.CNP Service: ? Author [...] Diabetes mellitus type 2, controlled, without complications ([facility]) 01/02/2023 GERD (gastroesophageal reflux disease) [...] 13/9 cmH2O with BUR [address] [facility] gabapentin (NEURONTIN) 300 mg capsule Take [...] wheezing, rhonchi, rales.. (more content not included)... [facility] 07-07-2024 History of Present illness Narrative This [...] Diabetes mellitus type 2, controlled, without complications ([facility]) 01/02/2023 GERD (gastroesophageal reflux disease) [...] 13/9 cmH2O with BUR 12 bpm [facility] gabapentin (NEURONTIN) 300 mg capsule Take 1 [...] scheduled or as needed for worsening/no improvement. Bobib Hart APRN.RUBIN documented in this encounter [facility] 05-27-2024 Telephone encounter Note RF sent PDMP website checked and validated. All prescriptions have been APPROPRIATELY filled. No suspicious activity was identified. 05/27/2024 by Jh Cowan APRN.RUBIN [facility] 05-27-2024 Miscellaneous Notes RF sent PDMP website checked and validated. All prescriptions have been APPROPRIATELY filled. No suspicious activity was identified. 05/27/2024 by Jh Cowan APRN.COST MANAGER Called spouse advised of message below from [...] the order and all related documents to [facility]. He will need a 31-90 day compliance follow up appointment. Jh Cowan APRN.CNP Pt and calling for results of sleep titration done at [facility] on 05/08. Results scanned into Epic. Please review and advise. Scan on 05/08/2024 by Provider, External PACady: Titration Study documented in this encounter [facility] 05-27-2024 Telephone encounter Note Called spouse advised of message below from Rapahel Cowan, verbalized understanding. Advised orders were sent to [facility]. Spouse stated patient needs refill of gabapentin, called into Santa Myers LPN May 27, 2024 4:32 PM [facility] 05-27-2024 Telephone encounter Note Please apologize for the delay in our getting results. This study recommends biPAP ST at a pressure of 13/9 with a backup rate of 12 breaths per minute. He needs the backup rate in order to control his central apnea. Please fax the order and all related documents to [facility]. He will need a 31-90 day compliance follow up appointment. Jh Cowan APRN.RUBIN [facility] 05-27-2024 Telephone encounter Note Pt and calling for results of sleep titration done at [facility] on 05/08. Results scanned into Epic. Please review and advise. Scan on 05/08/2024 by Provider, ExternalDERICKC: Titration Study [facility] 09-27-2024 Telephone encounter Note Sanide [facility] called in and reports she needs Pt las OV note from Jh Cowan PICK UP TRUCK DRIVER and order for titration study. She reports they will do it no charge, they just need it sent over for either the titration for Bipap or ASV. Faxed to # [phone]. [facility] 04-25-2024 Miscellaneous Notes Sandie [facility] called in and reports she needs Pt las OV note from Jh Cowan PICK UP TRUCK DRIVER and order for titration study. She reports they will do it no charge, they just need it sent over for either the titration for Bipap or ASV. Faxed to # [phone]. documented in this encounter [facility] 04-21-2024 History of Present illness Narrative Images [...] by mouth. MEDICATION, NON-DATABASE [place] [facility] metFORMIN ER (GLUCOPHAGE XR) 500 mg 24 [...] complication, without long-term current use of insulin ([facility]) - ICD9: 250.00, ICD10: E11.9 [...] though I encouraged him to discuss with COST MANAGER at upcoming appt in June. Perhaps pt would be willing to start statin if it could replace another medicine (ie aspirin) Advised to reach out to me before next visit if any questions/issues. Warned of backorder of [employer] Wyatt 3, informed we can order the 3 Plus if needed Follow-up Patient is scheduled to see PCP team on 07/07. Patient to have f/up with PharmD team on 10/06. Patient verbalized understanding of instructions. Noble Lawson PharmD, [facility] Primary Care Clinical Pharmacist Time spent: 21 mins documented in this encounter [facility] 04-21-2024 Note HNO ID: [id number] Author: NOBLE LAWSON RPh Service: ? Author [...] not present. Adherence: denies missed doses. Pharmacy: [facility] Rx coverage: Payor: ANTHEM / [...] once daily. vit (more content not included)... [facility] 04-18-2024 History of Present illness Narrative Images from the original note were not included. [facility] Sleep Disorders Center Follow up/ Established patient [...] He is requesting titration be performed at [facility]. Order paced. Advised pt not to drive or operate heavy machinery if sleepy. 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 3. RLS [...] PAP titration study which was done at [facility]. Dr Ramires ordered CPAP titration to start [...] accidents due to drowsy drivin 01/14/2024 04/18/2024 [place] Sleepiness Scale Score 9 (No clinically significant [...] study that was done on 02/09/24 at [facility] that should have been transitioned to biPAP but wasn't. It was started at CPAP 7 rather than 9 cmH2O as requested, and his AHI wasn't normalized including elevated centrals yet he wasn't transitioned to biPAP. We have requested [facility] retest him at no cost to the patient. Order for Bilevel titration starting at 8/4 cmH2O. Advance to biPAP ST if needed for central events. Will order new device from [facility], pt wants to switch to this DME Case discussed with Dr Ike Cowan APRN.COST MANAGER documented in this encounter [facility] 04-18-2024 Note HNO ID: [id number] Author: JH COWAN APRN.COST MANAGER Service: ? Author Type: Nurse Practitioner Type: Progress Notes Filed: 04/18/2024 13:39 Note Text: [facility] Sleep Disorders Center Follow up/ Established patient [...] He is requesting titration be performed at [facility]. Order paced. Advised pt not to drive or operate heavy machinery if sleepy. 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 3. RLS [...] PAP titration study which was done at [facility]. Dr Ramires ordered CPAP titration to start [...] accidents due to drowsy drivin 01/14/2024 04/18/2024 [place] Sleepiness Scale Score 9 (No clinically significant [...] (ASPIRIN, ENTERIC COATED (more content not included)... [facility] 04-16-2024 Telephone encounter Note Gabapentin refilled That's fine to put him in my schedule PDMP website checked and validated. All prescriptions have been APPROPRIATELY filled. No suspicious activity was identified. 04/16/2024 by Jh Cowan APRN.COST MANAGER [facility] 04-16-2024 Miscellaneous Notes Gabapentin refilled That's fine to put him in my schedule PDMP website checked and validated. All prescriptions have been APPROPRIATELY filled. No suspicious activity was identified. 04/16/2024 by Jh Cowan APRN.COST MANAGER Pt's AHI was not normalized during sleep study. The study was not run as requested. Specifically: Pt with prior study at [facility] showing CSA, but titration normalized on 11 [...] that may need additional testing. Please inform [facility] of pt information and concerns. Patient should still have follow up with Ema Cowan CNP. Edouard Ramires MD reports patient had a sleep study done in December, and has still not heard back from Dr. Ramires, about the results. Given message in 04-10-24 MyChart encounter, and informed provider waiting on reply from [facility]. reports they were not aware patient was [...] Pended. Please advise and phone with reply: [phone] documented in this encounter [facility] 04-16-2024 Telephone encounter Note Pt's AHI was not normalized during sleep study. The study was not run as requested. Specifically: Pt with prior study at [facility] showing CSA, but titration normalized on 11 [...] that may need additional testing. Please inform [facility] of pt information and concerns. Patient should still have follow up with Ema Cowan CNP. Edouard Ramires MD [facility] 04-16-2024 Telephone encounter Note reports patient had a sleep study done in December, and has still not heard back from Dr. Ramires, about the results. Given message in 04-10-24 MyChart encounter, and informed provider waiting on reply from [facility]. reports they were not aware patient was [...] Pended. Please advise and phone with reply: [phone] [facility] 04-11-2024 Telephone encounter Note Left VM for the sleep department at [facility] to return call. Porsha Acharya LPN [facility] 04-11-2024 Miscellaneous Notes Left VM for the sleep department at [facility] to return call. Porsha Acharya LPN Pt was to follow up after sleep study with Ema Cowan CNP to review results and determine plan. Also note that study was not run as requested including starting on PAP setting of 9 cmH2O with low threshold for transition to bilevel PAP. Please inform [facility]. Edouard Ramires MD documented in this encounter [facility] 04-11-2024 Telephone encounter Note Pt was to follow up after sleep study with Ema Cowan CNP to review results and determine plan. Also note that study was not run as requested including starting on PAP setting of 9 cmH2O with low threshold for transition to bilevel PAP. Please inform [facility]. Edouard Ramires MD [facility] 02-19-2024 Telephone encounter Note Please see TE dated 01/14/24. Porsha Acharya LPN [facility] 02-19-2024 Miscellaneous Notes Please see TE dated 01/14/24. Porsha Acharya LPN phoned for results of titration study. Advised per 01-14-24 encounter, Psychiatry Instructor plans to discuss the results with Dr. Ramires, and patient may need another titration study. reports they really cannot afford another titration study, as this one cost them $600. Reports their daughter is in the hospital and had to have surgery yesterday, as well. and patient asking provider to change their DME to [facility]. Reports they are not happy dealing with [facility]. Please advise patient and . documented in this encounter [facility] 02-19-2024 Telephone encounter Note phoned for results of titration study. Advised per 01-14-24 encounter, Psychiatry Instructor plans to discuss the results with Dr. Ramires, and patient may need another titration study. reports they really cannot afford another titration study, as this one cost them $600. Reports their daughter is in the hospital and had to have surgery yesterday, as well. and patient asking provider to change their DME to [facility]. Reports they are not happy dealing with [facility]. Please advise patient and . [facility] 01-16-2024 History of Present illness Narrative Images [...] 265 07/08/2014 The 10-year ASCVD risk score ([place] DK, et al., 2019) is: 10.6% Values [...] spent: 30 mins documented in this encounter [facility] 01-14-2024 Telephone encounter Note Order for sleep study faxed to [facility] per request. Porsha Acharya LPN [facility] 01-14-2024 Miscellaneous Notes Order for sleep study faxed to [facility] per request. Porsha Acharya LPN Images from the original note were not included. Edouard Ramires Jr., MD P Wstr Neur Ike Nurse Pt would like study at [facility]. documented in this encounter [facility] 01-14-2024 Telephone encounter Note Images from the original note were not included. Edouard Ramires Jr., MD P Wstr Neur Ike Nurse Pt would like study at [facility]. [facility] 01-14-2024 Instructions Edouard Ramires Jr., MD - 01/14/2024 10:21 AM EDT Maintaining a healthy weight is stauffer to good sleep. documented in this encounter [facility] 01-14-2024 History of Present illness Narrative NEW [...] Diabetes mellitus type 2, controlled, without complications ([facility]) 01/02/2023 GERD (gastroesophageal reflux disease) [...] He is requesting titration be performed at [facility]. Order paced. Advised pt not to drive or operate heavy machinery if sleepy. 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 3. RLS [...] which included preparing to see the patient, [id number] patient care, completing clinical documentation, obtaining and/or [...] 4 - Moderate documented in this encounter [facility] 01-04-2024 Instructions Bobbi Hart APRN.RUBIN - 01/04/2024 1:39 PM EDT Get labs. Continue same medications. Recheck in 6 months. documented in this encounter [facility] 01-04-2024 History of Present illness Narrative This [...] Diabetes mellitus type 2, controlled, without complications ([facility]) 01/02/2023 GERD (gastroesophageal reflux disease) [...] as needed for worsening/no improvement. Bobbi Hart APRN.COST MANAGER documented in this encounter [facility] 11-12-2023 Miscellaneous Notes Continue lamisil twice a [...] Justine Floyd MA documented in this encounter [facility] 11-01-2023 Instructions Luis Felipe Jordan PA-C - 11/01/2023 9:29 AM EDT Use medications as instructed. If not improving 10-14 days, let me know. It is possible it might be pityriasis rosea which is not a fungal infection and requires no treatment but will spontaneously resolved over a few months documented in this encounter [facility] 11-01-2023 History of Present illness Narrative 53 [...] Diabetes mellitus type 2, controlled, without complications ([facility]) 01/02/2023 GERD (gastroesophageal reflux disease) [...] Felipe Jordan PA-C documented in this encounter [facility] 10-30-2023 Miscellaneous Notes Faxed and informed. Stephanie Keita MA printed Patient Ivonne calling CPAP mask fell apart last night. He does not have appt with Neurology until December. Willow is asking for new rx for mask and filters to be fax[place] to [facility] at [phone]. Pending order. If any questions can leave message on her phone, she works [employer]. Please advise documented in this encounter [facility] 10-22-2023 History of Present illness Narrative Images [...] Adherence: denies missed doses. [facility] Rx coverage: Payor: ANTHEM / [...] verbalized understanding of instructions. Noble Lawson, Elian, [facility] Primary Care Clinical Pharmacist The majority of the pharmacy visit (> 50%) was spent counseling and/or coordinating care for the patient. interaction: telephonic time was 30 minutes. documented in this encounter [facility] 02-12-2024 History of Present illness Narrative Images [...] complication, without long-term current use of insulin ([facility]) - ICD9: 250.00, ICD10: E11.9 [...] improve with ER formulation. Noble Lawson PharmD, [facility] Primary Care Clinical Pharmacist documented in this encounter [facility] 09-06-2023 Miscellaneous Notes Patient has been identified [...] you. Natalie Cuenca. documented in this encounter [facility] 07-02-2023 Instructions Bobbi Hart APRN.RUBIN - 07/02/2023 12:33 PM EST Continue the same medications. Follow-up w/ Noble, as scheduled. Get the additional labwork at your convenience. Schedule w/ sleep medicine. Recheck in 6 months. documented in this encounter [facility] 07-02-2023 History of Present illness Narrative This [...] Yes - in toes -- sees the pt escort every 3 months (Dr[address] Boggs). Elevated blood [...] Diabetes mellitus type 2, controlled, without complications ([facility]) 01/02/2023 GERD (gastroesophageal reflux disease) [...] Bobbi Hart APRN.RUBIN documented in this encounter [facility] 06-25-2023 Miscellaneous Notes Images from the original [...] to complete blood work before visit with COST MANAGER - Pharm follow up in 1 month Shane Rand RPh documented in this encounter [facility] 06-20-2023 Miscellaneous Notes Pt notified. Deisy Groves [...] consulted pharmacy. He could set up a [employer] account but usually only one person can [...] Please call spouse Ivonne with PCP response. [phone] Thank you. documented in this encounter [facility] 06-19-2023 Miscellaneous Notes Opened in error. Arielle Way RN documented in this encounter [facility] 02-05-2023 History of Present illness Narrative Primary [...] on a continuous glucose monitoring schedule - [employer] invite sent to patient Follow up: will follow up once patient has uploaded CGM device to Wyatt Rand PharmD, BCACP Primary Care Clinical Pharmacist The majority of the pharmacy visit (> 50%) was spent counseling and/or coordinating care for the patient. interaction: telephonic time was 20 minutes. documented in this encounter [facility] 01-16-2023 Miscellaneous Notes CGM last prescribed at [...] RAND RPh Wyatt 3 Sensor is on moshgiach backorder, asking if Dr. Noland can change order, [facility] has the Wyatt 2. Asking if order can be changed and sent. Tracy Ricardo LPN documented in this encounter [facility] 01-08-2023 History of Present illness Narrative Primary [...] was 50 minutes. documented in this encounter [facility] 01-02-2023 Instructions Edouard Noland MD - 01/02/2023 [...] grain hamburger bun, hot dog bun, or Monegasque muffin; of a small bagel or tortilla [...] whole grain crackers 1 small orange OR [place] with turkey, lettuce, tomato, 1 tablespoon reduced [...] ideas 3 cups unbuttered popcorn OR 1 xipup-mgu-h-half David crackers OR cup whole grain cereal [...] as noted above. These numbers can vary [id number]. Other Tips 1. Seeing a registered dietitian [...] to your appointment. documented in this encounter [facility] 01-02-2023 History of Present illness Narrative Patient [...] Abs Lymph 1.00 - 4.00 k/uL 1.08 Nelson% % 11.5 Abs Nelson <0.87 k/uL 0.55 Eosin% % 5.2 Abs [...] - CONSULT TO [facility]TM NURSE DIABETES - PRINCIPAL ELECTRICAL ENGINEER [CONSULT TO SOCIAL WORK] - CONSULT TO [...] Edouard Noland MD documented in this encounter [facility] 12-12-2022 Miscellaneous Notes notified of results [id number] [...] it at times. Please call Shaista at [phone]. [address] RN documented in this encounter [facility] 12-06-2022 Miscellaneous Notes Phoned patient and aware [...] situation. Please advise documented in this encounter [facility] 11-21-2022 Miscellaneous Notes PT has been scheduled. Monalisa PSS That's fine. Pt has not been seen by since 2019. However pt would still like to see . Please review and advise. documented in this encounter [facility] 01-18-2016 History of Past i llness Narrative Problem Noted Date Resolved Date Acute appendicitis with localized peritonitis 01/02/2023 Routine general medical exam ination at a health care facility 08/07/2008 03/18/2012 Overview: 08/07/08 10/19/2010 documented as of this encounter (statuses as of 01/03/2023) [facility] History of Past illness Narrative* Problem Noted Date Resolved Date Acute appendicitis with localized peritonitis 01/02/2023 Routine general medical exam ination at a health care facility 08/07/2008 03/18/2012 Overview: 08/07/08 10/19/2010 documented as of this encounter (statuses as of 01/17/2023) [facility] History of Past illness Narrative* Problem Noted Date Resolved Date Acute appendicitis with localized peritonitis 01/02/2023 Routine general medical exam ination at a health care facility 08/07/2008 03/18/2012 Overview: 08/07/08 10/19/2010 documented as of this encounter (statuses as of 01/17/2023) [facility] History of Past illness Narrative* Problem Noted Date Diagnosed Date Resolved Date Acute appendicitis with localized peritonitis 01/18/20 16 01/02/2023 Routine general medical exam ination at a [facility] care facility 08/07/2008 03/18/2012 Overview: 08/07/08 10/19/2010 documented as of this encounter (statuses as of 02/12/2023) [facility] History of Past illness Narrative* Problem Noted Date Diagnosed Date Resolved Date Acute appendicitis with localized peritonitis 01/18/20 16 01/02/2023 documented as of this encounter (statuses as of 06/06/2023) [facility] of Past illness Narrative* Problem Noted Date Diagnosed Date Resolved Date Acute appendicitis with localized peritonitis 01/18/20 16 01/02/2023 documented as of this encounter (statuses as of 06/19/2023) [facility] of Past illness Narrative* Problem Noted Date Diagnosed Date Resolved Date Acute appendicitis with localized peritonitis 01/18/20 16 01/02/2023 documented as of this encounter (statuses as of 06/20/2023) [facility] of Past illness Narrative* Problem Noted Date Diagnosed Date Resolved Date Acute appendicitis with localized peritonitis 01/18/20 16 01/02/2023 documented as of this encounter (statuses as of 06/26/2023) [facility] of Past illness Narrative* Problem Noted Date Diagnosed Date Resolved Date Acute appendicitis with localized peritonitis 01/18/20 16 01/02/2023 documented as of this encounter (statuses as of 07/03/2023) [facility] of Past illness Narrative* Problem Noted Date Diagnosed Date Resolved Date Acute appendicitis with localized peritonitis 01/18/20 16 01/02/2023 documented as of this encounter (statuses as of 09/06/2023) [facility] of Past illness Narrative* Problem Noted Date Diagnosed Date Resolved Date Acute appendicitis with localized peritonitis 01/18/20 16 01/02/2023 documented as of this encounter (statuses as of 09/11/2023) [facility] of Past illness Narrative* Problem Noted Date Diagnosed Date Resolved Date Acute appendicitis with localized peritonitis 01/18/20 16 01/02/2023 documented as of this encounter (statuses as of 10/22/2023) [facility] of Past illness Narrative* Problem Noted Date Diagnosed Date Resolved Date Acute appendicitis with localized peritonitis 01/18/20 16 01/02/2023 documented as of this encounter (statuses as of 10/31/2023) [facility] of Past illness Narrative* Problem Noted Date Diagnosed Date Resolved Date Acute appendicitis with localized peritonitis 01/18/20 16 01/02/2023 documented as of this encounter (statuses as of 11/02/2023) [facility] of Past illness Narrative* Problem Noted Date Diagnosed Date Resolved Date Acute appendicitis with localized peritonitis 01/18/20 16 01/02/2023 documented as of this encounter (statuses as of 11/13/2023) [facility] History of Past illness Narrative* Problem Noted Date Resolved Date Routine general medical exam ination at a health care facility 08/07/2008 03/18/2012 Overview: 08/07/08 10/19/2010 documented as of this encounter (statuses as of 12/06/2022) [facility] History of Past illness Narrative* Problem Noted Date Resolved Date Routine general medical exam ination at a health care facility 08/07/2008 03/18/2012 Overview: 08/07/08 10/19/2010 documented as of this encounter (statuses as of 12/13/2022) [facility] note* Diagnosis Hyperglycemia- Primary Other abnormal glucose Weight loss Loss of weight Screening for lipid disorders [facility] Diagnosis Well adult exam- Primary Routine general medical examination at a health care facility Need for vaccination Need for prophylactic vaccination and inoculation against unspecified single disease Vitamin D deficiency Unspecified vitamin D deficiency Controlled type 2 diabetes mellitus without complication, without long-term current use of insulin ([facility]) Screening for colon cancer Special screening for malignant neoplasms, colon Paresthesia Disturbance of skin sensation Chloe albicans infection Candidiasis of unspecified site [facility]* Diagnosis Controlled type 2 diabetes mellitus without complication, without long-term current use of insulin ([facility])- Primary documented in this encounter [facility] note* Diagnosis Controlled type 2 diabetes mellitus without complication, without long-term current use of insulin ([facility])- Primary Medication management Encounter for long-term (current) use of other medications [facility] Diagnosis Controlled type 2 diabetes mellitus without complication, without long-term current use of insulin (HCC)- Primary [facility] Diagnosis Controlled type 2 diabetes mellitus without complication, without long-term current use of insulin (HCC)- Primary Hypertriglyceridemia Pure hyperglyceridemia Borderline abnormal thyroid function test Nonspecific abnormal results of thyroid function study documented in this encounter [facility] note* Diagnosis Controlled type 2 diabetes mellitus without complication, without long-term current use of insulin (HCC) [facility]* Diagnosis Controlled type 2 diabetes mellitus without complication, without long-term current use of insulin (HCC)- Primary MIKHAIL (obstructive sleep apnea) Obstructive sleep apnea (adult) (pediatric) Muscle weakness Muscle weakness (generalized) Hypertriglyceridemia Pure hyperglyceridemia Borderline abnormal thyroid function test Nonspecific abnormal results of thyroid function study documented in this encounter [facility] note* Diagnosis Chloe albicans infection Candidiasis of unspecified site [facility] Diagnosis Controlled type 2 diabetes mellitus without complication, without long-term current use of insulin (HCC)- Primary [facility] Diagnosis Controlled type 2 diabetes mellitus without complication, without long-term current use of insulin (HCC)- Primary documented in this encounter [facility] note* Diagnosis MIKHAIL (obstructive sleep apnea)- Primary Obstructive sleep apnea (adult) (pediatric) [facility]* Diagnosis Tinea corporis- Primary Dermatophytosis of the body documented [facility]* Diagnosis Tinea corporis Dermatophytosis of the body [facility] Diagnosis Controlled type 2 diabetes mellitus without complication, without long-term current use of insulin (HCC)- Primary Muscle cramps Cramp of limb Weakness of lower extremity, unspecified laterality Vitamin D deficiency Unspecified vitamin D deficiency Borderline abnormal thyroid function test Nonspecific abnormal results of thyroid function study Elevated blood pressure reading without diagnosis of hypertension documented in this encounter [facility] note* Diagnosis CSA (central sleep apnea)- Primary Unspecified sleep apnea MIKAHIL (obstructive sleep apnea) Obstructive sleep apnea (adult) (pediatric) RLS (restless legs syndrome) Restless legs syndrome (RLS) Controlled type 2 diabetes mellitus without complication, without long-term current use of insulin (HCC)- Primary [facility]* Diagnosis Controlled type 2 diabetes mellitus without complication, without long-term current use of insulin (HCC)- Primary [facility]* Diagnosis RLS (restless legs syndrome) Restless legs syndrome (RLS) Controlled type 2 diabetes mellitus without complication, without long-term current use of insulin (HCC)- Primary [facility]* Diagnosis Central sleep apnea- Primary Unspecified sleep apnea MIKHAIL (obstructive sleep apnea) Obstructive sleep apnea (adult) (pediatric) Controlled type 2 diabetes mellitus without complication, without long-term current use of insulin (HCC)- Primary [facility]* Diagnosis Controlled type 2 diabetes mellitus without complication, without long-term current use of insulin (HCC)- Primary [facility] Diagnosis Controlled type 2 diabetes mellitus without complication, without long-term current use of insulin (HCC)- Primary Vitamin D deficiency Unspecified vitamin D deficiency Hypertriglyceridemia Pure hyperglyceridemia Borderline abnormal thyroid function test Nonspecific abnormal results of thyroid function study Screening for lipid disorders [facility] Diagnosis Elevated alkaline phosphatase level- Primary Other nonspecific abnormal serum enzyme levels [facility]* Diagnosis Central sleep apnea- Primary Unspecified sleep apnea MIKHAIL (obstructive sleep apnea) Obstructive sleep apnea (adult) (pediatric) Uses bilevel positive airway pressure (BPAP) ventilation at home RLS (restless legs syndrome) Restless legs syndrome (RLS) PLMD (periodic limb movement disorder) Periodic limb movement disorder [facility]* Diagnosis Controlled type 2 diabetes mellitus without complication, without long-term current use of insulin (HCC)- Primary [facility]* Diagnosis Central sleep apnea- Primary Unspecified sleep apnea MIKHAIL (obstructive sleep apnea) Obstructive sleep apnea (adult) (pediatric) RLS (restless legs syndrome) Restless legs syndrome (RLS) documented [facility]* Diagnosis Elevated blood pressure reading [...] and cartilage, unspecified [facility]* Diagnosis Hypercalcemia- Primary Elevated alkaline phosphatase level Other nonspecific abnormal serum enzyme levels [facility]* Diagnosis Elevated liver enzymes- Primary Other nonspecific abnormal serum enzyme levels [facility] Diagnosis Elevated liver enzymes Other nonspecific abnormal serum enzyme levels Controlled type 2 diabetes mellitus without complication, without long-term current use of insulin (HCC)- Primary [facility] noteNo assessment information availableWMcCullough-[facility] Work Phone: Evaluation note* Diagnosis Controlled type 2 diabetes mellitus without complication, without long-term current use of insulin (HCC)- Primary documented in this encounter [facility] note* Diagnosis Bacterial pneumonia- Primary Bacterial pneumonia, unspecified documented in this encounter [facility] note* Diagnosis Hypercalcemia- Primary documented in this encounter [facility] note* Diagnosis Osteopenia of multiple sites documented in this encounter [facility] note* Diagnosis Renal insufficiency- Primary Unspecified disorder of kidney and ureter Hypercalcemia documented in this encounter [facility] note* Diagnosis Bacterial pneumonia Bacterial pneumonia, unspecified [facility] (narrative)No reason for referral information availableWMcCullough-[facility] Work Phone: Reason for visit Narrative* Diagnostic Procedure Only (Routine) - Closed Specialty Diagnoses / Procedures Referred By Contac t Referred To Contact XR IMAGING Diagnoses Osteopenia of multiple sites Procedures DXA-AXIAL SKELETON DXA BONE DENSITY STUDY 1/> SITES AXIAL Eoduard Moses MD [address] [place] [address] Phone: tel: fax: [place] [id number] Referral ID Status Reason Start Date Expiration Date V isits Requested Visits Authorized [id number] Closed Auto-Generate d Referral 01/12/2025 02/11/2026 1 1 [facility] Reason for Referral Specialty Diagnoses / Procedures Referred By Contac t Referred To Contact Diagnoses Controlled type 2 diabetes mellitus without complication, without long-term current use of insulin (HCC) Procedures CONSULT TO DIABETES EDUCATION DSME/MNT MEDICAL NUTRITION ASSMT&IVNTJ INDIV EACH 15 WI MEDICAL NUTRITION ASSMT&IVNTJ INDIV EACH 15 [place] MEDICAL NUTRITION ASSMT&IVNTJ INDIV EACH 15 [place] MEDICAL NUTRITION ASSMT&IVNTJ INDIV EACH 15 [place] Edouard Noland MD [address] [place] [address] [facility] [address] [place] [address] Referral ID Status Reason Start Date Expiration Date Visits Requested Visits Authorized [id number] Authorized PCP Requested Referral 01/02/2023 01/02/2024 1 1 Specialty Diagnoses / Procedures Referred By Contac t Referred To Contact General Surgery Diagnoses Screening for colon cancer Procedures CONSULT TO GENERAL SURGERY OFFICE/OUTPATIENT [facility] 60-74 MINUTES Edouard Noland MD [address] [place] [address] Referral ID Status Reason Start Date Expiration Date Visits Requested Visits Authorized [id number] Authorized PCP Requested Referral 01/02/2023 01/02/2024 1 1 Specialty Diagnoses / Procedures Referred By Contac t Referred To Contact Diagnoses MIKHAIL (obstructive sleep apnea) Procedures CONSULT TO SLEEP MEDICINE - ADULT OFFICE/OUTPATIENT [facility] 60-74 MINUTES Bobbi Hart APRN.CNP [address] [place] [address] Referral ID Status Reason Start Date Expiration Date Visits Requested Visits Authorized [id number] Authorized PCP Requested Referral 07/02/2023 07/01/2024 1 1 Specialty Diagnoses / Procedures Referred By Contac t Referred To Contact Diagnoses Controlled type 2 diabetes mellitus without complication, without long-term current use of insulin ([facility]) Edouard Noland MD [address] [place] [address] Referral ID Status Reason Start Date Expiration Date Visits Re quested Visits Authorized [id number] Closed 1 1 Chief Complaint and Reason for Visit Chief Complaint Admit Date CHEST PAIN January 21, 2025 10:1 9pm Family History Relationship Condition Age at Onset Recorded Date/T arianne Unknown Family History?No pertinent history Unkno wn January 14, 2016 4:44pm Advance Directives Advance Directive Response Recorded Date/ Time Do you have a Healthcare Power of Basket Hand Braider? No January 21, 2025 10:35pm Advance Directives No January 13 8:04pm Summary Purpose Additional Source Comments Source Comments (unrecognize d section and content) In the event this informatio n is protected by the Federal Confidentiality of Alcohol and Drug Abuse Patient Records regulations: The Federal rules restrict any use of the information to criminally investigate or prosecute any alcohol or drug abuse patient.[facility] CenterIn the event this information is protected by the Federal Confidentiality of Alcohol and Drug Abuse Patient Records regulations: The Federal rules restrict any use of the information to criminally investigate or prosecute any alcohol or drug abuse patient.[facility] CenterIn the event this information is protected by the Federal Confidentiality of Alcohol and Drug Abuse Patient Records regulations: The Federal rules restrict any use of the information to criminally investigate or prosecute any alcohol or drug abuse patient.[facility] CenterIn the event this information is protected by the Federal Confidentiality of Alcohol and Drug Abuse Patient Records regulations: The Federal rules restrict any use of the information to criminally investigate or prosecute any alcohol or drug abuse patient.[facility] CenterIn the event this information is protected by the Federal Confidentiality of Alcohol and Drug Abuse Patient Records regulations: The Federal rules restrict any use of the information to criminally investigate or prosecute any alcohol or drug abuse patient.[facility] CenterIn the event this information is protected by the Federal Confidentiality of Alcohol and Drug Abuse Patient Records regulations: The Federal rules restrict any use of the information to criminally investigate or prosecute any alcohol or drug abuse patient.[facility] CenterIn the event this information is protected by the Federal Confidentiality of Alcohol and Drug Abuse Patient Records regulations: The Federal rules restrict any use of the information to criminally investigate or prosecute any alcohol or drug abuse patient.[facility] CenterIn the event this information is protected by the Federal Confidentiality of Alcohol and Drug Abuse Patient Records regulations: The Federal rules restrict any use of the information to criminally investigate or prosecute any alcohol or drug abuse patient.[facility] CenterIn the event this information is protected by the Federal Confidentiality of Alcohol and Drug Abuse Patient Records regulations: The Federal rules restrict any use of the information to criminally investigate or prosecute any alcohol or drug abuse patient.[facility] CenterIn the event this information is protected by the Federal Confidentiality of Alcohol and Drug Abuse Patient Records regulations: The Federal rules restrict any use of the information to criminally investigate or prosecute any alcohol or drug abuse patient.[facility] CenterIn the event this information is protected by the Federal Confidentiality of Alcohol and Drug Abuse Patient Records regulations: The Federal rules restrict any use of the information to criminally investigate or prosecute any alcohol or drug abuse patient.[facility] CenterIn the event this information is protected by the Federal Confidentiality of Alcohol and Drug Abuse Patient Records regulations: The Federal rules restrict any use of the information to criminally investigate or prosecute any alcohol or drug abuse patient.[facility] CenterIn the event this information is protected by the Federal Confidentiality of Alcohol and Drug Abuse Patient Records regulations: The Federal rules restrict any use of the information to criminally investigate or prosecute any alcohol or drug abuse patient.[facility] CenterIn the event this information is protected by the Federal Confidentiality of Alcohol and Drug Abuse Patient Records regulations: The Federal rules restrict any use of the information to criminally investigate or prosecute any alcohol or drug abuse patient.[facility] CenterIn the event this information is protected by the Federal Confidentiality of Alcohol and Drug Abuse Patient Records regulations: The Federal rules restrict any use of the information to criminally investigate or prosecute any alcohol or drug abuse patient.[facility] CenterIn the event this information is protected by the Federal Confidentiality of Alcohol and Drug Abuse Patient Records regulations: The Federal rules restrict any use of the information to criminally investigate or prosecute any alcohol or drug abuse patient.[facility] CenterIn the event this information is protected by the Federal Confidentiality of Alcohol and Drug Abuse Patient Records regulations: The Federal rules restrict any use of the information to criminally investigate or prosecute any alcohol or drug abuse patient.[facility] CenterIn the event this information is protected by the Federal Confidentiality of Alcohol and Drug Abuse Patient Records regulations: The Federal rules restrict any use of the information to criminally investigate or prosecute any alcohol or drug abuse patient.[facility] CenterIn the event this information is protected by the Federal Confidentiality of Alcohol and Drug Abuse Patient Records regulations: The Federal rules restrict any use of the information to criminally investigate or prosecute any alcohol or drug abuse patient.[facility] CenterIn the event this information is protected by the Federal Confidentiality of Alcohol and Drug Abuse Patient Records regulations: The Federal rules restrict any use of the information to criminally investigate or prosecute any alcohol or drug abuse patient.[facility] CenterIn the event this information is protected by the Federal Confidentiality of Alcohol and Drug Abuse Patient Records regulations: The Federal rules restrict any use of the information to criminally investigate or prosecute any alcohol or drug abuse patient.[facility] CenterIn the event this information is protected by the Federal Confidentiality of Alcohol and Drug Abuse Patient Records regulations: The Federal rules restrict any use of the information to criminally investigate or prosecute any alcohol or drug abuse patient.[facility] CenterIn the event this information is protected by the Federal Confidentiality of Alcohol and Drug Abuse Patient Records regulations: The Federal rules restrict any use of the information to criminally investigate or prosecute any alcohol or drug abuse patient.[facility] CenterIn the event this information is protected by the Federal Confidentiality of Alcohol and Drug Abuse Patient Records regulations: The Federal rules restrict any use of the information to criminally investigate or prosecute any alcohol or drug abuse patient.[facility] CenterIn the event this information is protected by the Federal Confidentiality of Alcohol and Drug Abuse Patient Records regulations: The Federal rules restrict any use of the information to criminally investigate or prosecute any alcohol or drug abuse patient.[facility] CenterIn the event this information is protected by the Federal Confidentiality of Alcohol and Drug Abuse Patient Records regulations: The Federal rules restrict any use of the information to criminally investigate or prosecute any alcohol or drug abuse patient.[facility] CenterIn the event this information is protected by the Federal Confidentiality of Alcohol and Drug Abuse Patient Records regulations: The Federal rules restrict any use of the information to criminally investigate or prosecute any alcohol or drug abuse patient.[facility] CenterIn the event this information is protected by the Federal Confidentiality of Alcohol and Drug Abuse Patient Records regulations: The Federal rules restrict any use of the information to criminally investigate or prosecute any alcohol or drug abuse patient.[facility] CenterIn the event this information is protected by the Federal Confidentiality of Alcohol and Drug Abuse Patient Records regulations: The Federal rules restrict any use of the information to criminally investigate or prosecute any alcohol or drug abuse patient.[facility] CenterIn the event this information is protected by the Federal Confidentiality of Alcohol and Drug Abuse Patient Records regulations: The Federal rules restrict any use of the information to criminally investigate or prosecute any alcohol or drug abuse patient.[facility] CenterIn the event this information is protected by the Federal Confidentiality of Alcohol and Drug Abuse Patient Records regulations: The Federal rules restrict any use of the information to criminally investigate or prosecute any alcohol or drug abuse patient.[facility] CenterIn the event this information is protected by the Federal Confidentiality of Alcohol and Drug Abuse Patient Records regulations: The Federal rules restrict any use of the information to criminally investigate or prosecute any alcohol or drug abuse patient.[facility] CenterIn the event this information is protected by the Federal Confidentiality of Alcohol and Drug Abuse Patient Records regulations: The Federal rules restrict any use of the information to criminally investigate or prosecute any alcohol or drug abuse patient.[facility] CenterIn the event this information is protected by the Federal Confidentiality of Alcohol and Drug Abuse Patient Records regulations: The Federal rules restrict any use of the information to criminally investigate or prosecute any alcohol or drug abuse patient.[facility] CenterIn the event this information is protected by the Federal Confidentiality of Alcohol and Drug Abuse Patient Records regulations: The Federal rules restrict any use of the information to criminally investigate or prosecute any alcohol or drug abuse patient.[facility] CenterIn the event this information is protected by the Federal Confidentiality of Alcohol and Drug Abuse Patient Records regulations: The Federal rules restrict any use of the information to criminally investigate or prosecute any alcohol or drug abuse patient.[facility] CenterIn the event this information is protected by the Federal Confidentiality of Alcohol and Drug Abuse Patient Records regulations: The Federal rules restrict any use of the information to criminally investigate or prosecute any alcohol or drug abuse patient.[facility] CenterIn the event this information is protected by the Federal Confidentiality of Alcohol and Drug Abuse Patient Records regulations: The Federal rules restrict any use of the information to criminally investigate or prosecute any alcohol or drug abuse patient.[facility] CenterIn the event this information is protected by the Federal Confidentiality of Alcohol and Drug Abuse Patient Records regulations: The Federal rules restrict any use of the information to criminally investigate or prosecute any alcohol or drug abuse patient.[facility] CenterIn the event this information is protected by the Federal Confidentiality of Alcohol and Drug Abuse Patient Records regulations: The Federal rules restrict any use of the information to criminally investigate or prosecute any alcohol or drug abuse patient.[facility] CenterIn the event this information is protected by the Federal Confidentiality of Alcohol and Drug Abuse Patient Records regulations: The Federal rules restrict any use of the information to criminally investigate or prosecute any alcohol or drug abuse patient.[facility] CenterIn the event this information is protected by the Federal Confidentiality of Alcohol and Drug Abuse Patient Records regulations: The Federal rules restrict any use of the information to criminally investigate or prosecute any alcohol or drug abuse patient.[facility] CenterIn the event this information is protected by the Federal Confidentiality of Alcohol and Drug Abuse Patient Records regulations: The Federal rules restrict any use of the information to criminally investigate or prosecute any alcohol or drug abuse patient.[facility] CenterIn the event this information is protected by the Federal Confidentiality of Alcohol and Drug Abuse Patient Records regulations: The Federal rules restrict any use of the information to criminally investigate or prosecute any alcohol or drug abuse patient.[facility] CenterIn the event this information is protected by the Federal Confidentiality of Alcohol and Drug Abuse Patient Records regulations: The Federal rules restrict any use of the information to criminally investigate or prosecute any alcohol or drug abuse patient.[facility] CenterIn the event this information is protected by the Federal Confidentiality of Alcohol and Drug Abuse Patient Records regulations: The Federal rules restrict any use of the information to criminally investigate or prosecute any alcohol or drug abuse patient.[facility] CenterIn the event this information is protected by the Federal Confidentiality of Alcohol and Drug Abuse Patient Records regulations: The Federal rules restrict any use of the information to criminally investigate or prosecute any alcohol or drug abuse patient.[facility] CenterIn the event this information is protected by the Federal Confidentiality of Alcohol and Drug Abuse Patient Records regulations: The Federal rules restrict any use of the information to criminally investigate or prosecute any alcohol or drug abuse patient.[facility] CenterIn the event this information is protected by the Federal Confidentiality of Alcohol and Drug Abuse Patient Records regulations: The Federal rules restrict any use of the information to criminally investigate or prosecute any alcohol or drug abuse patient.[facility] CenterIn the event this information is protected by the Federal Confidentiality of Alcohol and Drug Abuse Patient Records regulations: The Federal rules restrict any use of the information to criminally investigate or prosecute any alcohol or drug abuse patient.[facility] CenterIn the event this information is protected by the Federal Confidentiality of Alcohol and Drug Abuse Patient Records regulations: The Federal rules restrict any use of the information to criminally investigate or prosecute any alcohol or drug abuse patient.[facility] Reason for Visit (unrecogniz ed section and [...] irritation. Specialty Diagnoses / Procedures [facility] Referred To Contact Diagnoses MIKHAIL (obstructive sleep apnea) Procedures CONSULT TO SLEEP MEDICINE - ADULT OFFICE/OUTPATIENT NEW HIGH MDM 60-74 MINUTES Bobbi Hart, NURSE TRANSPLANT.COST MANAGER [address] [place] [address] Referral ID Status Reason Start Date Expiration Date V isits Requested Visits Authorized [id number] Closed PCP Requested Referral 07/02/2023 07/01/2024 1 [...] [place] Specialty Diagnoses / Procedures [facility] Referred To Contact US IMAGING Diagnoses Elevated liver enzymes Procedures US ABD RIGHT UPPER QUADRANT US ABDOMINAL REAL TIME W/IMAGE LIMITED Edouard Noland MD [address] [place] [address] Phone: tel: fax: [place] [address] Referral ID Status Reason Start Date Expiration Date V isits Requested Visits Authorized [id number] Closed Auto-Generate d Referral 01/16/2025 02/15/2026 1 1 Reason Comments Patient Update Care Teams (unrecognized sec tion and content) Engineering Supervisor Relationship Specialty Start Date End Date Edouard Noland MD [address] [place], [place] [id number] PCP - General Family Medicine 03/18/12 Zoie Grijalva [address] [place] [address] 05/23/19 Engineering Supervisor Relationship Specialty Start Date End Date Edouard Noland MD [address] [place] [address] PCP - General Family Medicine 03/18/12 Zoie Grijalva [address] [place] [address] 05/23/19 Engineering Supervisor Relationship Specialty Start Date End Date Edouard Noland MD [address] [place] [address] PCP - General Family Medicine 03/18/12 Zoie Grijalva [address] [place] [address] 05/23/19 Engineering Supervisor Relationship Specialty Start Date End Date Edouard Noland MD [address] [place] [address] PCP - General Family Medicine 03/18/12 Zoie Grijalva [address] [place] [address] 05/23/19 Shane Rand, [facility] [address] [place] [address] Pharmacy 01/16/23 Engineering Supervisor Relationship Specialty Start Date End Date Edouard Noland MD [address] [place] [address] PCP - General Family Medicine 03/18/12 Zoie Grijalva [address] [place] [address] 05/23/19 Engineering Supervisor Relationship Specialty Start Date End Date Edouard Noland MD [address] [place] [address] PCP - General Family Medicine 03/18/12 [place] [address] 05/23/19 Shane Rand, [facility] [address] [place] [address] Pharmacy 01/16/23 Engineering Supervisor Relationship Specialty Start Date End Date Edouard Noland MD [address] [place] [address] PCP - General Family Medicine 03/18/12 Zoie Grijalva [address] [place] [address] 05/23/19 Shane Rand, [facility] [address] [place] [address] Pharmacy 01/16/23 Engineering Supervisor Relationship Specialty Start Date End Date Edouard Noland MD [address] [place] [address] PCP - General Family Medicine 03/18/12 Zoie Grijalva [address] [place] [address] 05/23/19 [facility] [address] [place] [address] Pharmacy 01/16/23 Engineering Supervisor Relationship Specialty Start Date End Date Edouard Noland MD [address] [place] [address] PCP - General Family Medicine 03/18/12 Zoie Grijalva [address] [place] [address] 05/23/19 [facility] [address] [facility] [place] [address] Pharmacy 01/16/23 Engineering Supervisor Relationship Specialty Start Date End Date Edouard Noland MD [address] [place] [address] PCP - General Family Medicine 03/18/12 Zoie Grijalva [address] [place] [address] 05/23/19 [facility] [address] [facility] [place] [address] Pharmacy 01/16/23 Engineering Supervisor Relationship Specialty Start Date End Date Edouard Noland MD [address] [place] [address] PCP - General Family Medicine 03/18/12 Zoie Grijalva [address] [place] [address] 05/23/19 [facility] [address] [place] [address] Pharmacy 01/16/23 Engineering Supervisor Relationship Specialty Start Date End Date Edouard Noland MD [address] [place] [address] PCP - General Family Medicine 03/18/12 Zoie Grijalva [address] [place] [address] 05/23/19 LuluNoble ford, [facility] [address] [place] [phone] Pharmacist Pharmacy 07/16/23 Engineering Supervisor Relationship Specialty Start Date End Date Edouard Noland MD [address] [place] [address] PCP - General Family Medicine 03/18/12 Zoie Grijalva [address] [place] [address] 05/23/19 [place] [address] [place] [address] Pharmacist Pharmacy 07/16/23 Engineering Supervisor Relationship Specialty Start Date End Date Edouard Noland MD [address] [place] [address] PCP - General Family Medicine 03/18/12 Zoie Grijalva [address] [place] [address] 05/23/19 [place] [address] [place] [address] Pharmacist Pharmacy 07/16/23 Engineering Supervisor Relationship Specialty Start Date End Date Edouard Noland MD [address] [place] [address] PCP - General Family Medicine 03/18/12 Zoie Grijalva [address] [place] [address] 05/23/19 [place] [address] [place] [address] Pharmacist Pharmacy 07/16/23 Engineering Supervisor Relationship Specialty Start Date End Date Edouard Noland MD [address] [place] [address] PCP - General Family Medicine 03/18/12 Zoie Grijalva [address] [place] [address] 05/23/19 [place] [address] [place] [address] Pharmacist Pharmacy 07/16/23 Engineering Supervisor Relationship Specialty Start Date End Date Edouard Noland MD [address] [place] [address] PCP - General Family Medicine 03/18/12 Zoie Grijalva [address] [place] [address] 05/23/19 Otto [place] [place] [address] Pharmacist Pharmacy 07/16/23 Engineering Supervisor Relationship Specialty Start Date End Date Edouard Noland MD [address] [place] [address] PCP - General Family Medicine 03/18/12 Zoie Grijalva [address] [place] [address] 05/23/19 [place] [address] [place] [address] Pharmacist Pharmacy 07/16/23 Engineering Supervisor Relationship Specialty Start Date End Date Edouard Noland MD [address] [place] [address] PCP - General Family Medicine 03/18/12 Zoie Grijalva [address] [place] [address] 05/23/19 Otto Noble[place] [address] [place] [address] Pharmacist Pharmacy 07/16/23 Engineering Supervisor Relationship Specialty Start Date End Date Edouard Noland MD [address] [place] [address] PCP - General Family Medicine 03/18/12 Zoie Grijalva [address] [place] [address] 05/23/19 Noble Lawson, [facility] [address] [place] [address] Pharmacist Pharmacy 07/16/23 Engineering Supervisor Relationship Specialty Start Date End Date Edouard Noland MD [address] [place] [address] PCP - General Family Medicine 03/18/12 Zoie Grijalva [address] [place] [address] 05/23/19 LuluNoble ford, [facility] [address] [place] [phone] Pharmacist Pharmacy 07/16/23 Bobbi Hart, HARRY.COST MANAGER [address] [place] [address] On Site Soil Evaluator Family Medicine 07/07/24 Adrienne Castro NURSE TRANSPLANT.COST MANAGER [address] [place] [address] On Site Soil Evaluator Family [facility] 07/07/24 Engineering Supervisor Relationship Specialty Start Date End Date Edouard Noland MD [address] [place] [address] PCP - General Family Medicine 03/18/12 Zoie Grijalva [address] [place] [address] 05/23/19 Noble Lawson, [facility] [address] [place] [phone] Pharmacist Pharmacy 07/16/23 Bobbi Hart, NURSE TRANSPLANT.COST MANAGER [address] [place] [address] On Site Soil Evaluator Family Medicine 07/07/24 Adrienne Castro APRN.COST MANAGER [address] [place] [address] [facility] 07/07/24 Engineering Supervisor Relationship Specialty Start Date End Date Edouard Noland MD [address] [place] [address] PCP - General Family Medicine 03/18/12 Zoie Grijalva [address] [place] [address] 05/23/19 [facility] [address] [place] [phone] Pharmacist Pharmacy 07/16/23 Bobbi Hart APRN.COST MANAGER [address] [place] [address] [facility] 07/07/24 Adrienne Castro NURSE TRANSPLANT.COST MANAGER [address] [place] [address] [facility] 07/07/24 Engineering Supervisor Relationship Specialty Start Date End Date Edouard Noland MD [address] [place] [address] PCP - General Family Medicine 03/18/12 Zoie Grijalva [address] [place] [address] 05/23/19 [facility] [address] [place] [phone] Pharmacist Pharmacy 07/16/23 Bobbi Hart APRN.COST MANAGER [address] [place] [address] On Site Soil Evaluator [facility] 07/07/24 Adrienne Castro NURSE TRANSPLANT.COST MANAGER [address] [place] [address] [facility] 07/07/24 Engineering Supervisor Relationship Specialty Start Date End Date Edouard Noland MD [address] [place] [address] PCP - General Family Medicine 03/18/12 Zoie Grijalva [address] [place] [address] 05/23/[address] [phone] Pharmacist Pharmacy 07/16/23 Bobbi Hart APRN.COST MANAGER [address] [place] [address] [facility] 07/07/24 Adrienne Castro NURSE TRANSPLANT.COST MANAGER [address] [place] [address] [facility] 07/07/24 Engineering Supervisor Relationship Specialty Start Date End Date Edouard Noland MD [address] [place] [address] PCP - General Family Medicine 03/18/12 Zoie Grijalva [address] [place] [address] 05/23/[address] [phone] Pharmacist Pharmacy 07/16/23 Bobbi Hart APRN.COST MANAGER [address] [place], [place] [address] On Site Soil Evaluator [facility] 07/07/24 Adrienne Castro APRN.COST MANAGER [address] [place] [address] On Site Soil Evaluator [facility] 07/07/24 Engineering Supervisor Relationship Specialty Start Date End Date Edouard Noland MD [address] [place] [address] PCP - General Family Medicine 03/18/12 Zoie Grijalva [address] [place] [address] 05/23/[address] [phone] Pharmacist Pharmacy 07/16/23 Bobbi Hart APRN.COST MANAGER [address] [place] [address] On Site Soil Evaluator [facility] 07/07/24 Adrienne Castro NURSE TRANSPLANT.COST MANAGER [address] [place] [address] [facility] 07/07/24 Engineering Supervisor Relationship Specialty Start Date End Date Edouard Noland MD [address] [place] [address] PCP - General Family Medicine 03/18/12 Zoie Grijalva [address] [place] [address] 05/23/[address] [phone] Pharmacist Pharmacy 07/16/23 Bobbi Hart APRN.COST MANAGER [address] [place] [address] On Site Soil Evaluator [facility] 07/07/24 Adrienne Castro APRN.COST MANAGER [address] [place] [address] On Site Soil Evaluator [facility] 07/07/24 Engineering Supervisor Relationship Specialty Start Date End Date Edouard Noland MD [address] [place] [address] PCP - General Family Medicine 03/18/12 Zoie Grijalva [address] [place] [address] 05/23/[address] [phone] Pharmacist Pharmacy 07/16/23 Bobbi Hart APRN.COST MANAGER [address] [place] [address] On Site Soil Evaluator [facility] 07/07/24 Adrienne Castro APRN.COST MANAGER [address] [place] [address] [facility] 07/07/24 Engineering Supervisor Relationship Specialty Start Date End Date Edouard Nloand MD [address] [place] [address] PCP - General Family Medicine 03/18/12 Zoie Grijalva [address] [place] [address] 05/23/[address] [phone] Pharmacist Pharmacy 07/16/23 Bobbi Hart APRN.COST MANAGER [address] [place] [address] On Site Soil Evaluator [facility] 07/07/24 Adrienne Castro APRN.COST MANAGER [address] [place] [address] On Site Soil Evaluator [facility] 07/07/24 Engineering Supervisor Relationship Specialty Start Date End Date Edouard Noland MD [address] [place] [address] PCP - General Family Medicine 03/18/12 Zoie Grijalva [address] [place] [address] 05/23/[address] [phone] Pharmacist Pharmacy 07/16/23 Bobbi Hart APRN.COST MANAGER [address] [place] [address] [facility] 07/07/24 Adrienne Castro APRN.COST MANAGER [address] [place] [address] On [facility] 07/07/24 Engineering Supervisor Relationship Specialty Start Date End Date Edouard Noland MD [address] [place] [address] PCP - General Family Medicine 03/18/12 Zoie Grijalva [address] [place] [address] 05/23/[address] [phone] Pharmacist Pharmacy 07/16/23 Bobbi Hart APRN.COST MANAGER [address] [facility] [place] [address] [facility] 07/07/24 Adrienne Castro NURSE TRANSPLANT.COST MANAGER [address] [place] [address] [facility] 07/07/24 Team Status: Active Member Role Status Dates Dr. Edouard Noland MD Primary Care Provider Active Team Status: Inactive Member Role Status Dates Dr. Edouard Noland MD Primary Care Provider Active Start: January 21, 2025 End: January 22, 2025 Dr. Elliot Caceres DO Emergency Provider Active Start: January 21, 2025 End: January 22, 2025 Engineering Supervisor Relationship Specialty Start Date End Date Edouard Noland MD [address] [place] [address] PCP - General Family Medicine 03/18/12 Zoie Grijalva [address] [place] [address] 05/23/19 LuluNoble ford, [facility] [address] [place] [phone] Pharmacist Pharmacy 07/16/23 Bobbi Hart, NURSE TRANSPLANT.COST MANAGER [address] [place] [address] [facility] 07/07/24 Adrienne Castro NURSE TRANSPLANT.COST MANAGER [address] [place] [address] [facility] 07/07/24 Engineering Supervisor Relationship Specialty Start Date End Date Edouard Noland MD [address] [place], [place] [address] PCP - General Family Medicine 03/18/12 Zoie Grijalva [address] [place] [address] 05/23/[address] [phone] Pharmacist Pharmacy 07/16/23 Bobbi Hart APRN.COST MANAGER [address] [place] [address] On Site Soil Evaluator Family [facility] 07/07/24 Adrienne Castor APRN.COST MANAGER [address] [place] [address] On Site Soil Evaluator [facility] 07/07/24 Engineering Supervisor Relationship Specialty Start Date End Date Edouard Noland MD [address] [place] [address] PCP - General Family Medicine 03/18/12 Zoie Grijalva [address] [place] [address] 05/23/[address] [phone] Pharmacist Pharmacy 07/16/23 Bobbi Hart APRN.COST MANAGER [address] [place] [address] On Site Soil Evaluator Family [facility] 07/07/24 Adrienne Castro APRN.COST MANAGER [address] [place] [address] On Site Soil Evaluator Family [facility] 07/07/24 Engineering Supervisor Relationship Specialty Start Date End Date Edouard Noland MD [address] [place] [address] PCP - General Family Medicine 03/18/12 Zoie Grijalva [address] [place] [address] 05/23/[address] [phone] Pharmacist Pharmacy 07/16/23 Bobbi Hart APRN.COST MANAGER [address] [place] [address] On Site Soil Evaluator [facility] 07/07/24 Adrienne Castro APRN.COST MANAGER [address] [place] [address] [facility] 07/07/24 Engineering Supervisor Relationship Specialty Start Date End Date Edouard Noland MD [address] [place] [address] PCP - General Family Medicine 03/18/12 Zoie Grijalva [address] [place] [address] 05/23/[address] [phone] Pharmacist Pharmacy 07/16/23 Bobbi Hart APRN.COST MANAGER [address] [place] [address] [facility] 07/07/24 Adrienne Castro APRN.COST MANAGER [address] [place] [address] On [facility] 07/07/24 Goals (unrecognized section and content) Goals may be documented in a n alternate section (unrecognized sect ion and content) No Status Records FoundNo Status Records FoundNo Status Records Found INFORMATION SOURCE (unrecogn ized section and content) DATE CREATED AUTHOR 01/28/2025 [facility] DATE CREATED AUTHOR AUTHOR'S ERLINDA ATSKYE 02/07/2025 [facility] DATE CREATED AUTHOR AUTHOR'S ORGANSARAH ATION 02/23/2025 [facility] FOR RECORDS PERTAINING TO PATIENTS WHO ARE [...] BE BASED ON THE PRIMARY CLINICAL RECORDS. [facility] [employer] [facility] provides no warranty or guarantee of the accuracy or completeness of information in this document.
[2025-02-26] MEDS: 0.9% Normal Saline (1000mL) 1,000 ML 100 ML IV (03:26)
[2025-02-26] MEDS: Famotidine 200 MG/20 ML MDV 20 MG in 0.9% Normal Saline (Pres. free 8 ML 300 MG IV ×3 (03:47→22:44)
[2025-02-26 06:36] LABS: Hematocrit 32.4 % (40-54); Hemoglobin 11.3 g/dL (13.0-16.5); Immature Granulocytes Count 0.010 X10^3/uL (0.0-0.0); Mean Corp Hgb Conc 34.9 g/dL (32-36); Mean Corpuscular Volume 80.0 fL (80-94); Mean Platelet Vol. 9.9 fl (6.2-12.0); NRBC Flagged by Analyzer 0 % (0-5); Platelet Count 161 K/mm3 (150-450); RBC Distribution Width CV 13.1 % (11.6-14.6); RBC Distribution Width SD 37.3 fl (35.1-43.9); Red Blood Count 4.05 M/mm3 (4.6-6.2); White Blood Count 3.7 K/mm3 (4.4-11.0)
[2025-02-26 07:14] LABS: AST(SGOT) 29 U/L (<=37); Alanine Aminotransfer ALT/SGPT 17 U/L (<=46); Albumin, Serum 3.8 g/dL (3.5-5.0); Alkaline Phosphatase 108 U/L (40-129); Anion Gap 10 (5-15); BUN 19 mg/dL (4-19); BUN/Creat Ratio 15.1 RATIO (10-20); Calcium,Total 9.7 mg/dL (7.6-11.0); Carbon Dioxide 18.9 mmol/L (21.0-32.0); Chloride 107 mmol/L (98-108); Estimated Creatinine Clearance 80.37 ml/min (50-250); Globulin 2.9 g/dL (2.2-4.2); Glucose 130 mg/dL (70-99); Potassium 3.7 mmol/L (3.3-5.1); Vitamin B12 628 pg/mL (180-914)
--- NOTE | 2025-02-26 08:54 | EX.PCM.CONCC ---
Assessment & Plan Assessment/Plan (1) Pneumonia: QUALIFIERS: Pneumonia type: due to unspecified organism Laterality: bilateral Lung location: unspecified part of lung Qualified Code(s): J18.9 - Pneumonia, unspecified organism PLAN: Plan RECOMMENDATIONS: 1. Continue antimicrobials per ID recommendations. 2. Given low suspicion for active TB, airborne precautions can be discontinued. 3. N.p.o. at midnight, with plans for bronchoscopy tomorrow morning. 4. Lovenox for DVT prophylaxis. IMPRESSIONS: 1. Abnormal CT chest The patient initially presented to the hospital with a dry, nonproductive cough and generalized malaise and fatigue in the setting of radiographic evidence of bilateral reticular nodular infiltrates. I have a very low index of suspicion for active TB given the findings noted on imaging. The case was discussed with infectious diseases, who was in agreement to discontinue the patient's airborne precautions. Will plan to proceed with bronchoscopy tomorrow morning to evaluate for possible atypical versus nontuberculous mycobacterial infection. BAL with cultures will be obtained and sent. In the interim, continue empiric antibiotics along with appropriate DVT prophylaxis. 2. History of diabetes mellitus/seasonal allergic rhinitis/GERD Complicates care, management, recovery and prognosis. Continue home medications as indicated. This note was generated with [employer] Home [employer] dictation software. It may contain incorrect words, spelling, and punctuation that were not noted in checking the note before signing. HPI Consult Data Date of Consult: 02/26/25 HPI Narrative HPI Narrative: The patient is a 54-year-old male, with a history as outlined below, who presented to the emergency department on February 26 with complaints of a dry, nonproductive cough and generalized malaise and fatigue. The patient reported that he recently had lab work performed by his primary care provider, which indicated the presence of hypercalcemia. In addition, he stated that he was diagnosed with pneumonia and treated with a course of doxycycline. The patient does report a mild degree of unintentional weight loss. The patient denied a history of tuberculosis or prior exposure to TB. He has never been incarcerated. He denies any recent travel out of the country. He denies the presence of hemoptysis. The patient is a lifelong non-smoker. He denies any night sweats, fevers or chills. On presentation to the emergency department, the patient was documented to be afebrile and hemodynamically stable. He was maintaining appropriate oxygen saturations on room air. Laboratory evaluation was notable for a white blood cell count of 3700 with a hemoglobin of 12.9 g/dL. Platelet count was within normal limits. Chemistry profile was notable for a creatinine of 1.38 with a calcium of 10.9. Lactate was normal. TSH was within normal limits. Urine analysis was unremarkable. HIV testing was nonreactive. CT chest/abdomen/pelvis was obtained which demonstrated bilateral reticular nodular infiltrates. The patient was subsequently admitted to the hospital and placed on antimicrobial therapy. The patient has already been evaluated by infectious diseases, as there was initial concern on admission to the hospital for possible TB. However, in light of the patient's history, this seems highly unlikely. Therefore, I did reach out and speak directly with infectious diseases, who was in agreement that the patient's airborne precautions could be discontinued. [facility] Medical History Hearing loss, right BiPAP (biphasic positive airway pressure) dependence Sleep apnea COVID Diabetes GERD (gastroesophageal reflux disease) Home Medications ?Medication ?Instructions ?Recorded ?Last Taken ?Type aspirin 81 mg tablet,delayed 81 mg PO DAILY 01/21/25 Unknown History release (Adult Aspirin Regimen) dulaglutide 0.75 mg/0.5 mL 0.75 mg subcut [place]OULTON 01/21/25 Unknown History subcutaneous pen injector (Trulicity) gabapentin 300 mg capsule 300 mg PO DAILY 01/21/25 Unknown History loratadine 10 mg tablet 10 mg PO DAILY 01/21/25 Unknown History (Allerclear) metformin 500 mg tablet,extended 1,000 mg PO BID 01/21/25 Unknown History release 24 hr Allergy/AdvReac Type Severity Reaction Status Date / Time Penicillins (PCN) Allergy Rash Verified 02/25/25 20:45 Social History Smoking Status: Never smoker ROS ROS Narrative 10 systems were reviewed with pertinent positives as noted in the HPI above. Physical Exam Const alert, oriented x3 and no apparent distress HEENT normocephalic, head/scalp atraumatic and moist oral mucous membranes Eyes PERRL, EOMs intact bilaterally and conjunctivae normal Neck supple General: trachea midline Chest inspection of chest normal Resp normal respiratory effort Auscultation: Negative for rales, rhonchi or wheezes Cardio regular rate and regular rhythm GI normal to inspection, nondistended, normoactive bowel sounds Extremity no clubbing, cyanosis or edema Skin no rashes or lesions noted Neuro CN's II-XII intact bilaterally, moves all extremities and no focal motor deficits Psych cooperative and affect normal Lab / Micro Data 02/26/25 05:47 02/26/25 05:47 Labs: Laboratory Results - last 24 hr 02/25/25 22:35: WBC 3.7 L, RBC 4.59 L, Hgb 12.9 L, Hct 36.5 L, MCV 79.5 L, MCH 28.1, MCHC 35.3, RDW Std Deviation 37.8, RDW Coeff of Samuel 13.2, Plt Count 168, MPV 9.6, Immature Gran % (Auto) 0.300, Neut % (Auto) 62.6, Lymph % (Auto) 17.1 L, Caldwell % (Auto) 15.5 H, Eos % (Auto) 3.7, Baso % (Auto) 0.8, Absolute Neuts (auto) 2.3, Absolute Lymphs (auto) 0.64 L, Nucleated RBC % 0, Sodium 138, Potassium 3.9, Chloride 105, Carbon Dioxide 20.7 L, Anion Gap 12, BUN 22 H, Creatinine 1.38 H, Estim Creat Clear Calc 72.80, Est GFR (MDRD) Non-Af 62, BUN/Creatinine Ratio 15.7, Glucose 107 H, Hemoglobin A1c 6.3 H, Lactic Acid < 1.0, Calcium 10.9, Magnesium 1.9, Total Bilirubin 0.43, AST 27, ALT 22, Alkaline Phosphatase 124, Total Protein 7.8, Albumin 4.3, Globulin 3.5, Albumin/Globulin Ratio 1.2, TSH 3.190 02/25/25 23:40: Urine Color Yellow, Urine Clarity Clear, Urine pH 6.0, Ur Specific [place] 1.020, Urine Protein 15 H, Urine Glucose (UA) Normal, Urine Ketones Negative, Urine Occult Blood Negative, Urine Nitrite Negative, Urine Bilirubin Negative, Urine Urobilinogen Normal, Ur Leukocyte Esterase Negative, Urine RBC 0-5 SEEN, Urine WBC 0 SEEN, Ur Squamous Epith Cells 0 SEEN, Urine Bacteria 1+, Urine Mucus 0 SEEN 02/26/25 01:35: HIV 1&2 Antibody Nonreactive 02/26/25 05:47: WBC 3.7 L, RBC 4.05 L, Hgb 11.3 L, Hct 32.4 L, MCV 80.0, MCH 27.9, MCHC 34.9, RDW Std Deviation 37.3, RDW Coeff of Samuel 13.1, Plt Count 161, MPV 9.9, Immature Gran % (Auto) 0.300, Neut % (Auto) 63.2, Lymph % (Auto) 18.0 L, Caldwell % (Auto) 13.7 H, Eos % (Auto) 4.3, Baso % (Auto) 0.5, Absolute Neuts (auto) 2.4, Absolute Lymphs (auto) 0.67 L, Nucleated RBC % 0, Sodium 136, Potassium 3.7, Chloride 107, Carbon Dioxide 18.9 L, Anion Gap 10, BUN 19, Creatinine 1.25 H, Estim Creat Clear Calc 80.37, Est GFR (MDRD) Non-Af 69, BUN/Creatinine Ratio 15.1, Glucose 130 H, Calcium 9.7, Phosphorus 2.1 L, Total Bilirubin 0.43, AST 29, ALT 17, Alkaline Phosphatase 108, Total Protein 6.6, Albumin 3.8, Globulin 2.9, Albumin/Globulin Ratio 1.3, Vitamin B12 628 02/26/25 06:45: POC Glucose 102 Micro: Microbiology 02/25/25 23:40 Urine, Random Legionella Antigen - Final 02/25/25 23:40 Urine, Random Streptococcus pneumoniae Antigen (M - Final Rhythm Strip Rhythm Strip: Sinus Rhythm Rate: 91 Ectopy: None Imaging Radiology Impression Chest/Abdomen/Pelvis CT 02/25/25 23:19 IMPRESSION: Extensive bilateral mostly nodular airspace disease, most consistent with infection. TB is not excluded. Advise clinical correlation. No acute abdominal or pelvic findings. Mediastinal, hilar, epigastric, and retroperitoneal adenopathy, nonspecific but most likely inflammatory in etiology. Advise correlation. Reading [facility] Charges/Coding Visit Charges Inpatient E&M: 43594 Init Hosp L2
[2025-02-26] MEDS: Lactobacillis Acidophilus 1 CAP PO ×4 (09:57→22:59)
[2025-02-26] MEDS: Aspirin E.C. 81 MG Tablet PO ×2 (09:57)
[2025-02-26] MEDS: 0.9% Saline Lock 10 ML Syringe IV ×2 (09:57→22:49)
--- NOTE | 2025-02-26 10:11 | CON.PCM.ID_ITS ---
Assessment & Plan Assessment/Plan (1) Weight loss: (2) Pneumonia: QUALIFIERS: Pneumonia type: due to unspecified organism L aterality: bilateral Lung location: unspecified part of lung Qualified Code(s): J18.9 - Pneumonia, unspecified organism PLAN: Overall low suspicion for TB. TB quantiferon pending, but this would not rule out active TB. Pulm to see. Will order fungal studies and resp chlamydia testing. Recommend bronchoscopy. On empiric ceftriaxone/azithro. Will follow HPI Consult Data Date of Consult: 02/26/25 HPI Narrative Reason for Consultation: abnormal chest CT HPI Narrative: TRESA AGUIRRE, is a 54 M with h/o DM, had 100lb weight loss unintentional over past 5 years. Reports several months some dry cough. Saw PCP, labs showed high calcium and vit D. Chest CT done, showed infiltrate, sent to ED. No night sweats, no hemoptysis. No rash or lesion. Full ROS performed and neg except as noted above. Had about 6 episodes of diarrhea three nights ago, two times two nights ago, none last night. No blood in stool. Exposure history: lives at home with family. No known TB exposure. No contact with people in senior care, recent immigrants, or homeless population. H/o foreign travel while in [place], was in [place], [place], and [place]. Son has two canaries, but pt is not involved in their care. Some goats and chickens and outdoor cats, but he does not take care of them. No h/o large soil/dust/bird or bat droppings exposure. FOR[facility]LY [facility], LATER [facility] Medical History Hearing loss, right BiPAP (biphasic positive airway pressure) dependence Sleep apnea COVID Diabetes GERD (gastroesophageal reflux disease) Home Medications ?Medication ?Instructions ?Recorded ?Last Taken ?Type aspirin 81 mg tablet,delayed 81 mg PO DAILY 01/21/25 U nknown History release (Adult Aspirin Regimen) dulaglutide 0.75 mg/0.5 mL 0.75 mg subcut [place] 01/21/25 Unknown History subcutaneous pen injector (Trulicity) gabapentin 300 mg capsule 300 mg PO DAILY 01/21/25 Unk nown History loratadine 10 mg tablet 10 mg PO DAILY 01/21/25 Unkn own History (Allerclear) metformin 500 mg tablet,extended 1,000 mg PO BID 01/21 Unknown History release 24 hr Allergy/AdvReac Type Severity Reaction Status Date / Time Penicillins (PCN) Allergy Rash Verified 02/25/25 20:45 Social History Smoking Status: Never smoker Physical Exam Const alert, oriented x3 and no apparent distress General Appearance: cooperative HEENT normocephalic and head/scalp atraumatic Eyes PERRL and EOMs intact bilaterally Neck supple and No nodes Resp normal air movement and clear to auscultation bilaterally Cardio regular rate and regular rhythm GI soft to palpation, non-tender and non-distended Extremity General Extremity: Negative for edema Skin Skin Narrative: dark nodule on R upper back Neuro CN's II-XII intact bilaterally Lab / Micro Data Attestation: I reviewed the patient's lab results. 02/26/25 05:47 02/26/25 05:47 Labs: Laboratory Results - last 24 hr 02/25/25 22:35: WBC 3.7 L, RBC 4.59 L, Hgb 12.9 L, Hct 36.5 L, MCV 79.5 L, MCH 28.1, MCHC 35.3, RDW Std Deviation 37.8, RDW Coeff of Samuel 13.2, Plt Count 168, MPV 9.6, Immature Gran % (Auto) 0.300, Neut % (Auto) 62.6, Lymph % (Auto) 17.1 L , [place] % (Auto) 15.5 H, Eos % (Auto) 3.7, Baso % (Auto) 0.8, Absolute Neuts (auto) 2.3, Absolute Lymphs (auto) 0.64 L, Nucleated RBC % 0, Sodium 138, Potassium 3.9, Chloride 105, Carbon Dioxide 20.7 L, Anion Gap 12, BUN 22 H, C reatinine 1.38 H, Estim Creat Clear Calc 72.80, Est GFR (MDRD) Non-Af 62, BUN/Creatinine Ratio 15.7, Glucose 107 H, Hemoglobin A1c 6.3 H, Lactic Acid < 1.0, Calcium 10.9, Magnesium 1.9, Total Bilirubin 0.43, AST 27, ALT 22, Alkaline Phosphatase 124, Total Protein 7.8, Albumin 4.3, Globulin 3.5, Albumin/Globulin Ratio 1.2, TSH 3.190 02/25/25 23:40: Urine Color Yellow, Urine Clarity Clear, Urine pH 6.0, Ur Specific [place] 1.020, Urine Protein 15 H, Urine Glucose (UA) Normal, Urine Ketones Negative, Urine Occult Blood Negative, Urine Nitrite Negative, Urine Bilirubin Negative, Urine Urobilinogen Normal, Ur Leukocyte Esterase Negative, Urine RBC 0-5 SEEN, Urine WBC 0 SEEN, Ur Squamous Epith Cells 0 SEEN, Urine Bacteria 1+, Urine Mucus 0 SEEN 02/26/25 01:35: HIV 1&2 Antibody Nonreactive 02/26/25 05:47: WBC 3.7 L, RBC 4.05 L, Hgb 11.3 L, Hct 32.4 L, MCV 80.0, MCH 27.9, MCHC 34.9, RDW Std Deviation 37.3, RDW Coeff of Samuel 13.1, Plt Count 161, MPV 9.9, Immature Gran % (Auto) 0.300, Neut % (Auto) 63.2, Lymph % (Auto) 18.0 L , [place] % (Auto) 13.7 H, Eos % (Auto) 4.3, Baso % (Auto) 0.5, Absolute Neuts (auto) 2.4, Absolute Lymphs (auto) 0.67 L, Nucleated RBC % 0, Sodium 136, Potassium 3.7, Chloride 107, Carbon Dioxide 18.9 L, Anion Gap 10, BUN 19, C reatinine 1.25 H, Estim Creat Clear Calc 80.37, Est GFR (MDRD) Non-Af 69, BUN/Creatinine Ratio 15.1, Glucose 130 H, Calcium 9.7, Phosphorus 2.1 L, Total Bilirubin 0.43, AST 29, ALT 17, Alkaline Phosphatase 108, Total Protein 6.6, Albumin 3.8, Globulin 2.9, Albumin/Globulin Ratio 1.3, Vitamin B12 628 02/26/25 06:45: POC Glucose 102 Micro: Microbiology 02/25/25 23:40 Urine, Random Legionella Antigen - Final 02/25/25 23:40 Urine, Random Streptococcus pneumoniae Antigen (M - Final Rhythm Strip Rhythm Strip: Sinus Rhythm Rate: 91 Ectopy: None Imaging Radiology Impression Chest/Abdomen/Pelvis CT 02/25/25 23:19 IMPRESSION: Extensive bilateral mostly nodular airspace disease, most consistent with infection. TB is not excluded. Advise clinical correlation. No acute abdominal or pelvic findings. Mediastinal, hilar, epigastric, and retroperitoneal adenopathy, nonspecific but most likely inflammatory in etiology. Advise correlation. Reading Location: [place] [address]
--- NOTE | 2025-02-26 12:20 | PN_ITS ---
Subjective Subjective Patient seen and examined. He had no active complaints. He has a dry cough which is chronic but denies any chest pain or palpitations, dizziness, nausea vomiting or any other symptoms. Review of systems otherwise negative. Objective Data Objective Data Vital Signs: Vital Signs Temp Pulse Resp BP Pulse Ox O2 Del Method 97.5 F L 95 14 145/84 H 100 Room Air 02/26/25 09:55 02/26/25 09:55 02/26/25 09:55 02/26/25 09:55 02/26/25 09:55 02/26/25 09:55 Oxygen Delivery Method Room Air Weight: 189 lb 6.033 oz Body Mass Index (BMI) 24.3 Intake & Output: Intake and Output for Last 24 Hours 02/24/25 02/25/25 02/26/25 23:59 23:59 23:59 Intake Total 1625 / 1625 Balance 1625 / 1625 Lab / Micro Data 02/26/25 05:47 02/26/25 05:47 Labs: Laboratory Results - last 24 hr 02/25/25 22:35: WBC 3.7 L, RBC 4.59 L, Hgb 12.9 L, Hct 36.5 L, MCV 79.5 L, MCH 28.1, MCHC 35.3, RDW Std Deviation 37.8, RDW Coeff of Samuel 13.2, Plt Count 168, MPV 9.6, Immature Gran % (Auto) 0.300, Neut % (Auto) 62.6, Lymph % (Auto) 17.1 L , [place] % (Auto) 15.5 H, Eos % (Auto) 3.7, Baso % (Auto) 0.8, Absolute Neuts (auto) 2.3, Absolute Lymphs (auto) 0.64 L, Nucleated RBC % 0, Sodium 138, Potassium 3.9, Chloride 105, Carbon Dioxide 20.7 L, Anion Gap 12, BUN 22 H, C reatinine 1.38 H, Estim Creat Clear Calc 72.80, Est GFR (MDRD) Non-Af 62, BUN/Creatinine Ratio 15.7, Glucose 107 H, Hemoglobin A1c 6.3 H, Lactic Acid < 1.0, Calcium 10.9, Magnesium 1.9, Total Bilirubin 0.43, AST 27, ALT 22, Alkaline Phosphatase 124, Total Protein 7.8, Albumin 4.3, Globulin 3.5, Albumin/Globulin Ratio 1.2, TSH 3.190 02/25/25 23:40: Urine Color Yellow, Urine Clarity Clear, Urine pH 6.0, Ur Specific [place] 1.020, Urine Protein 15 H, Urine Glucose (UA) Normal, Urine Ketones Negative, Urine Occult Blood Negative, Urine Nitrite Negative, Urine Bilirubin Negative, Urine Urobilinogen Normal, Ur Leukocyte Esterase Negative, Urine RBC 0-5 SEEN, Urine WBC 0 SEEN, Ur Squamous Epith Cells 0 SEEN, Urine Bacteria 1+, Urine Mucus 0 SEEN 02/26/25 01:35: HIV 1&2 Antibody Nonreactive 02/26/25 05:47: WBC 3.7 L, RBC 4.05 L, Hgb 11.3 L, Hct 32.4 L, MCV 80.0, MCH 27.9, MCHC 34.9, RDW Std Deviation 37.3, RDW Coeff of Samuel 13.1, Plt Count 161, MPV 9.9, Immature Gran % (Auto) 0.300, Neut % (Auto) 63.2, Lymph % (Auto) 18.0 L , [place] % (Auto) 13.7 H, Eos % (Auto) 4.3, Baso % (Auto) 0.5, Absolute Neuts (auto) 2.4, Absolute Lymphs (auto) 0.67 L, Nucleated RBC % 0, Sodium 136, Potassium 3.7, Chloride 107, Carbon Dioxide 18.9 L, Anion Gap 10, BUN 19, C reatinine 1.25 H, Estim Creat Clear Calc 80.37, Est GFR (MDRD) Non-Af 69, BUN/Creatinine Ratio 15.1, Glucose 130 H, Calcium 9.7, Phosphorus 2.1 L, Total Bilirubin 0.43, AST 29, ALT 17, Alkaline Phosphatase 108, Total Protein 6.6, Albumin 3.8, Globulin 2.9, Albumin/Globulin Ratio 1.3, Vitamin B12 628 02/26/25 06:45: POC Glucose 102 02/26/25 11:41: POC Glucose 129 H Micro: Microbiology 02/26/25 10:30 Stool Stool Lactoferrin - Final 02/26/25 10:30 Stool Clostridioides difficile (PCR) - Final 02/26/25 04:00 Mucosa - Nasopharyngeal Respiratory Panel (PCR) - Final 02/25/25 23:40 Urine, Random Legionella Antigen - Final 02/25/25 23:40 Urine, Random Streptococcus pneumoniae Antigen (M - Final Radiography Diagnostic Testing: Radiology Impression Chest/Abdomen/Pelvis CT 02/25/25 23:19 IMPRESSION: Extensive bilateral mostly nodular airspace disease, most consistent with infection. TB is not excluded. Advise clinical correlation. No acute abdominal or pelvic findings. Mediastinal, hilar, epigastric, and retroperitoneal adenopathy, nonspecific but most likely inflammatory in etiology. Advise correlation. Reading Location: [place] [address] Rhythm Strip Rhythm Strip: Sinus Rhythm Rate: 91 Ectopy: None Physical Exam Const alert, oriented x3 and no apparent distress General Appearance: cooperative HEENT normocephalic, head/scalp atraumatic, moist oral mucous membranes and oropharynx normal Eyes PERRL and EOMs intact bilaterally Neck no lymphadenopathy, supple and no JVD Resp normal respiratory effort, normal air movement and clear to auscultation bilaterally Resp Narrative: On room air Cardio regular rate, regular rhythm, S1 normal heart sound and no murmurs GI normal to inspection, nondistended, normoactive bowel sounds, soft to palpation, non-tender and non-distended Extremity normal capillary refill, no clubbing, cyanosis or edema and no calf tenderness General Extremity: no tenderness to palpation of joints or extremities Skin General Skin Exam: no breakdown Neuro CN's II-XII intact bilaterally Motor Exam: general weakness Psych thought process normal and cooperative Appearance: appropriate Assessment & Plan Assessment/Plan (1) Weight loss: (2) Pneumonia: QUALIFIERS: Pneumonia type: due to unspecified organism L aterality: bilateral Lung location: unspecified part of lung Qualified Code(s): J18.9 - Pneumonia, unspecified organism PLAN: Plan #Pneumonia with failed outpatient treatment * Patient currently on room air. CT of the chest abdomen and pelvis showed extensive bilateral mostly nodular airspace disease most consistent with infection TB not excluded. He also had mediastinal, hilar and epigastric as well as retroperitoneal lymph nodes. * Was recently diagnosed with pneumonia and failed outpatient treatment with oral doxycycline. Currently on IV ceftriaxone and azithromycin. * Urine for strep and Legionella negative. * Breathing treatments bronchodilators. Titrate oxygen to maintain saturation above 90%. ID on board and says low suspicion for TB. Patient does not have a history of TB. * Sputum for AFBs and QuantiFERON pending. #Acute gastroenteritis: Says he has lost about 5 pounds recently. Stool cultures pending. Patient feeling better and diarrhea is resolving. #Hypercalcemia: Was recently diagnosed with hypercalcemia on outpatient basis but this has resolved. #Type 2 diabetes mellitus: On metformin and dulaglutide. Also has neuropathy so on gabapentin. Insulin sliding scale. Dulaglutide and metformin on hold. Accu-Cheks ACHS. A1c pending. #DVT prophylaxis: Lovenox Charges/Coding Visit Charges Inpatient E&M: 94866 Subs Hosp L2
[2025-02-26 13:29] LABS: HIV Nonreactive (Nonreactive)
--- NOTE | 2025-02-26 13:40 | CASEMGMT ---
RN?CM?ASSESSMENT ? RN?CM?placed call to pt's room for initial transition planning/care coordination?assessment.?No answer. Call placed to pt's cell # listed in [facility]. , Shaista, answered, stating pt's cell does not work well, and this is her #. RN?CM?introduced self and role at [facility].? She states she can answer any questions.? Care providers, pharmacy, and demographics verified/updated at this time. ? Strata: 1 PCP: Dr Mcgee Specialists: Dr Ramires-neurologist (for MIKHAIL). Pt also has an appt to get established w/director digital @ [place] [facility] @ end of February. Preferred Pharmacy: [facility] Insurance: [employer] Prescription Benefit:?yes LNOK: , Shaista. Living Arrangements: Pt lives w/ and 9 children in split-level home w/3 steps to enter. Pt is independent and does okay with the stairs. Transportation:?Pt and both drive. DME: ?Pt has the following DME:?PAP, functioning BGM and CGM w/sufficient supplies. states they just had 2 defective sensors, but she has contacted the supervisor pig machine about this already. HHC/SNF: No hx. No needs identified. ? wishes for pt to return home @ dc and has no concerns w/him returning home. She denies having any discharge needs or concerns. aware bronchoscopy is scheduled for tomorrow morning @ 10 AM. She states pt has hx of difficulty coming off of sedation, gets confused, and rips out his lines. She states she wants to be present for the procedure and as he recovers. She plans to come in the morning for the bronchoscopy. Pt's RN, Marilyn, and charge nurse, Patti, both made aware. ? PLAN:??Home. ? Nitza BSN?RN?CM ?
[2025-02-27] VITALS (15 sets, daily range): BP systolic 96–148; BP diastolic 72–87; PULSE 78–114; RESP 14–20; TEMP 36.1–39; O2SAT 93–99; BMI 25.4
--- NOTE | 2025-02-27 | FLU_PTH ---
PATIENT: TRESA AGUIRRE LOC: [facility] U#:[id number] AGE/SX: 54/M ROOM: [facility] RE02/26/[address]: Dr. Nori Alex MD : 1970 BED: 1 DIS: 03/01/2025 SPEC #: [id number] RECD: 02/27/25 12:00 STATUS: SOUT REQ #: [id number] VICTORINO: 02/27/25 00:[address]: Nori Alex DEPT: CYTOLOGY RECD BY: Ryley Echavarria ENTERED: 03/02/25 11:20 SP TYPE: Fluid OTHR DR: MD Dr. Brandon Mcclure MD Dr. Bruce Arthur, MD Dr. Derek Brown, DO Dr. David de Lorenzo, DO Dr. David P Myers, MD Dr. Edward Matheis, MD Dr. Gautam Baskaran, MD Dr. Yordanos Habtegebriel, MD Dr. Hemant Dand, MD Dr. Jose Ochoa, MD Dr. Justin Wong, MD Dr. Kimber Foust, MD Dr. Lamia Aljundi, MD Dr. Marisa Magana, MD Dr. Pritam Ghosh, MD Dr. Pavan Irukulla, MD Dr. Robert Leininger, MD Dr. Saad Farooqi, MD Dr. Sukhdeep Dhesi, DO Dr. Sujoy Gill, MD Dr. Soleyah Groves, MD Dr. Timothy Fernstrom, DO Dr. Vikram Anand, MD Dr. William Haden, MD Dr. William Lago, MD Tissues: A - Right middle lobe of lung, NOS B - Lung, NOS Procedures: Special Stain Group II Special Stain Group I PAS Stain (control) Surgery Specimen Level IV AFB Stain (control) GMS Stain (control) Cytospin Fluid HEADER OPERATION: Bronchoscopy with washings (MAC) PRE-OP DIAGNOSIS: Abnormal CT scan TISSUE SUBMITTED: A- Right middle lobe, B- Lingula DIAGNOSIS CYTOLOGY A. Right middle lobe, washings, bronchoscopy (cytospin, cellblock): - No malignant cells identified. - Bronchial epithelium and macrophages. - No significant inflammation. - AFB, GMS, and PASD stains negative for micro-organisms. B. Lingula, washings, bronchoscopy (cytospin, cellblock): - Few atypical cells of undetermined significance. - Bronchial epithelium, squamous cells and macrophages with mixed bacteria suggestive of oral contamination. - No significant inflammation. - AFB, GMS, and PASD stains negative for micro-organisms. CYTOLOGY STUDY Slides are reviewed. All matched controls reacted appropriately. These tests were developed and their performance characteristics determined by [facility]. They may not have been cleared or approved by the U.S. Food and Drug Administration. The FDA has determined that such clearance or approval is not necessary.? The above immunohistochemical markers are reviewed by the Pathologist. CYTOLOGY GROSS A. Received is 1 ml of pale-red mucoid fluid and 2 smears labeled with the patient's name and and designated per the requisition as Right middle lobe. Submitted for cytology and cell block preparation. B. Received is 10 ml of pale-red mucoid fluid and 2 smears labeled with the patient's name and and designated per the requisition as Lingula. Submitted for cytology and cell block preparation. 03/02/2025 CPT: 13439d7,[id number]
[2025-02-27 05:30] LABS: Hematocrit 32.9 % (40-54); Hemoglobin 11.4 g/dL (13.0-16.5); Immature Granulocytes Count 0.010 X10^3/uL (0.0-0.0); Mean Corp Hgb Conc 34.7 g/dL (32-36); Mean Corpuscular Volume 79.1 fL (80-94); Mean Platelet Vol. 9.6 fl (6.2-12.0); NRBC Flagged by Analyzer 0 % (0-5); POSITIVE DIFFERENTIAL YES; Platelet Count 152 K/mm3 (150-450); RBC Distribution Width CV 13.2 % (11.6-14.6); RBC Distribution Width SD 37.3 fl (35.1-43.9); Red Blood Count 4.16 M/mm3 (4.6-6.2); White Blood Count 2.5 K/mm3 (4.4-11.0)
[2025-02-27 05:31] LABS: Differential Indicated SCAN CRITERIA MET
[2025-02-27 06:33] LABS: Differential Comment SCANNED
[2025-02-27 07:05] LABS: Anion Gap 11 (5-15); BUN 12 mg/dL (4-19); BUN/Creat Ratio 9.5 RATIO (10-20); Calcium,Total 9.7 mg/dL (7.6-11.0); Carbon Dioxide 22.0 mmol/L (21.0-32.0); Chloride 106 mmol/L (98-108); Estimated Creatinine Clearance 81.68 ml/min (50-250); Glucose 104 mg/dL (70-99); Potassium 3.8 mmol/L (3.3-5.1)
--- NOTE | 2025-02-27 07:08 | PN.CC_ITS ---
Assessment & Plan Assessment/Plan (1) Pneumonia: QUALIFIERS: Pneumonia type: due to unspecified organism L aterality: bilateral Lung location: unspecified part of lung Qualified Code(s): J18.9 - Pneumonia, unspecified organism PLAN: Plan RECOMMENDATIONS: 1. Continue antimicrobials per ID recommendations. 2. Proceed with bronchoscopy with BAL today. 3. Lovenox for DVT prophylaxis. IMPRESSIONS: 1. Abnormal CT chest The patient initially presented to the hospital with a dry, nonproductive cough and generalized malaise and fatigue in the setting of radiographic evidence of bilateral reticular nodular infiltrates. I have a very low index of suspicion for active TB given the findings noted on imaging. The case was discussed with infectious diseases, who was in agreement to discontinue the patient's airborne precautions. Plan is still to proceed with bronchoscopy today to evaluate for possible atypical versus nontuberculous mycobacterial infection. BAL with cultures will be obtained and sent. In the interim, continue empiric antibiotics along with appropriate DVT prophylaxis. 2. History of diabetes mellitus/seasonal allergic rhinitis/GERD Complicates care, management, recovery and prognosis. Continue home medications as indicated. This note was generated with [employer] dictation software. It may contain incorrect words, spelling, and punctuation that were not noted in checking the note before signing. Subjective Subjective The patient was seen and examined at the bedside this morning. Events from the last 24 hours have been reviewed. The patient currently has a low-grade fever but remains otherwise hemodynamically stable on room air. No overnight events were reported. Objective Data Objective Data The patient's most recent lab work, culture data and imaging studies have all been personally reviewed. Vital Signs: Vital Signs Temp Pulse Resp BP Pulse Ox O2 Del Method 100.1 F H 86 15 115/78 97 Room Air 02/27/25 06:09 02/27/25 06:09 02/27/25 06:09 02/27/25 06:09 02/27/25 06:09 02/27/25 06:09 Oxygen Delivery Method Room Air Weight: 197 lb 12.074 oz Body Mass Index (BMI) 25.4 Intake & Output: Intake and Output for Last 24 Hours 02/25/25 02/26/25 02/27/25 23:59 23:59 23:59 Intake Total 2635 / 2635 305 / 305 Balance 2635 / 2635 305 / 305 Lab / Micro Data Attestation: I reviewed the patient's lab results. 02/27/25 04:37 02/27/25 04:37 Labs: Laboratory Results - last 24 hr 02/26/25 05:47: Sodium 136, Potassium 3.7, Chloride 107, Carbon Dioxide 18.9 L, Anion Gap 10, BUN 19, Creatinine 1.25 H, Estim Creat Clear Calc 80.37, Est GFR (MDRD) Non-Af 69, BUN/Creatinine Ratio 15.1, Glucose 130 H, Calcium 9.7, P hosphorus 2.1 L, Total Bilirubin 0.43, AST 29, ALT 17, Alkaline Phosphatase 108, Total Protein 6.6, Albumin 3.8, Globulin 2.9, Albumin/Globulin Ratio 1.3, Vitamin B12 628 02/26/25 11:41: POC Glucose 129 H 02/26/25 11:55: HIV 1&2 Antibody Nonreactive 02/26/25 16:48: POC Glucose 91 02/26/25 22:53: POC Glucose 114 H 02/27/25 04:37: WBC 2.5 L, RBC 4.16 L, Hgb 11.4 L, Hct 32.9 L, MCV 79.1 L, MCH 27.4, MCHC 34.7, RDW Std Deviation 37.3, RDW Coeff of Samuel 13.2, Plt Count 152, MPV 9.6, Immature Gran % (Auto) 0.400, Neut % (Auto) 61.0, Lymph % (Auto) 17.9 L , [place] % (Auto) 14.2 H, Eos % (Auto) 6.1 H, Baso % (Auto) 0.4, Absolute Neuts (auto) 1.5 L, Absolute Lymphs (auto) 0.44 L, Nucleated RBC % 0, Differential Comment SCANNED, Sodium 139, Potassium 3.8, Chloride 106, Carbon Dioxide 22.0, Anion Gap 11, BUN 12, Creatinine 1.23 H, Estim Creat Clear Calc 81.68, Est GFR (MDRD) Non-Af 71, BUN/Creatinine Ratio 9.5 L, Glucose 104 H, Calcium 9.7 02/27/25 06:04: POC Glucose 117 H Micro: Microbiology 02/26/25 10:30 Stool Stool Lactoferrin - Final 02/26/25 10:30 Stool Enteric Bacteriology - Final 02/26/25 10:30 Stool Clostridioides difficile (PCR) - Final 02/26/25 04:00 Mucosa - Nasopharyngeal Respiratory Panel (PCR) - Final 02/25/25 23:40 Urine, Random Legionella Antigen - Final 02/25/25 23:40 Urine, Random Streptococcus pneumoniae Antigen (M - Final Rhythm Strip Rhythm Strip: Sinus Rhythm Rate: 91 Ectopy: None Physical Exam Const alert, oriented x3 and no apparent distress HEENT normocephalic, head/scalp atraumatic and moist oral mucous membranes Eyes PERRL, EOMs intact bilaterally and conjunctivae normal Neck supple General: trachea midline Chest inspection of chest normal Resp normal respiratory effort Auscultation: Negative for rales, rhonchi or wheezes Cardio regular rate and regular rhythm GI normal to inspection, nondistended, normoactive bowel sounds Extremity no clubbing, cyanosis or edema Skin no rashes or lesions noted Neuro CN's II-XII intact bilaterally, moves all extremities and no focal motor deficits Psych cooperative and affect normal Charges/Coding Visit Charges Inpatient E&M: 55366 Subs Hosp L2
--- NOTE | 2025-02-27 09:50 | PN_ITS ---
Subjective Subjective Patient seen and examined with his nurse by his bedside.He had no active complaints and denied any shortness of breath or cough. Review of systems is otherwise negative. He is for bronch today. He has remained hemodynamically stable. Objective Data Objective Data Vital Signs: Vital Signs Temp Pulse Resp BP Pulse Ox O2 Del Method 98.5 F 87 14 121/79 H 99 Room Air 02/27/25 08:40 02/27/25 08:40 02/27/25 08:40 02/27/25 08:40 02/27/25 08:40 02/27/25 08:40 Oxygen Delivery Method Room Air Weight: 197 lb 12.074 oz Body Mass Index (BMI) 25.4 Intake & Output: Intake and Output for Last 24 Hours 02/25/25 02/26/25 02/27/25 23:59 23:59 23:59 Intake Total 2635 / 2635 305 / 305 Balance 2635 / 2635 305 / 305 Lab / Micro Data 02/27/25 04:37 02/27/25 04:37 Labs: Laboratory Results - last 24 hr 02/26/25 11:41: POC Glucose 129 H 02/26/25 11:55: HIV 1&2 Antibody Nonreactive 02/26/25 16:48: POC Glucose 91 02/26/25 22:53: POC Glucose 114 H 02/27/25 04:37: WBC 2.5 L, RBC 4.16 L, Hgb 11.4 L, Hct 32.9 L, MCV 79.1 L, MCH 27.4, MCHC 34.7, RDW Std Deviation 37.3, RDW Coeff of Samuel 13.2, Plt Count 152, MPV 9.6, Immature Gran % (Auto) 0.400, Neut % (Auto) 61.0, Lymph % (Auto) 17.9 L , Day % (Auto) 14.2 H, Eos % (Auto) 6.1 H, Baso % (Auto) 0.4, Absolute Neuts (auto) 1.5 L, Absolute Lymphs (auto) 0.44 L, Nucleated RBC % 0, Differential Comment SCANNED, Sodium 139, Potassium 3.8, Chloride 106, Carbon Dioxide 22.0, Anion Gap 11, BUN 12, Creatinine 1.23 H, Estim Creat Clear Calc 81.68, Est GFR (MDRD) Non-Af 71, BUN/Creatinine Ratio 9.5 L, Glucose 104 H, Calcium 9.7 02/27/25 06:04: POC Glucose 117 H Micro: Microbiology 02/26/25 10:30 Stool Stool Lactoferrin - Final 02/26/25 10:30 Stool Enteric Bacteriology - Final 02/26/25 10:30 Stool Clostridioides difficile (PCR) - Final 02/26/25 04:00 Mucosa - Nasopharyngeal Respiratory Panel (PCR) - Final 02/25/25 23:40 Urine, Random Legionella Antigen - Final 02/25/25 23:40 Urine, Random Streptococcus pneumoniae Antigen (M - Final Rhythm Strip Rhythm Strip: Sinus Rhythm Rate: 91 Ectopy: None Physical Exam Const alert, oriented x3, no apparent distress and average body habitus General Appearance: cooperative HEENT normocephalic, head/scalp atraumatic, hearing grossly normal bilaterally, moist oral mucous membranes and oropharynx normal Eyes PERRL, EOMs intact bilaterally and conjunctivae normal Neck no lymphadenopathy, supple and no JVD Resp normal respiratory effort, normal air movement, no retractions, no use of accessory muscles and clear to auscultation bilaterally Resp Narrative: On room air Cardio regular rate, regular rhythm, S1 normal heart sound and no murmurs GI normal to inspection, nondistended, normoactive bowel sounds, soft to palpation, non-tender and non-distended Extremity normal to inspection, full ROM, normal capillary refill, no clubbing, cyanosis or edema and no calf tenderness General Extremity: no tenderness to palpation of joints or extremities Skin General Skin Exam: no breakdown Neuro oriented x3, CN's II-XII intact bilaterally, moves all extremities and no focal motor deficits Sensorium / Orientation: awake, alert, oriented to person, oriented to place and oriented to time Speech: speech normal Motor Exam: general weakness Psych thought process normal, cooperative and affect normal Appearance: appropriate Assessment & Plan Assessment/Plan (1) Weight loss: (2) Pneumonia: QUALIFIERS: Pneumonia type: due to unspecified organism L aterality: bilateral Lung location: unspecified part of lung Qualified Code(s): J18.9 - Pneumonia, unspecified organism PLAN: Plan #Pneumonia with failed outpatient treatment * Patient currently on room air. CT of the chest abdomen and pelvis showed extensive bilateral mostly nodular airspace disease most consistent with infection TB not excluded. He also had mediastinal, hilar and epigastric as well as retroperitoneal lymph nodes. * Was recently diagnosed with pneumonia and failed outpatient treatment with oral doxycycline. Currently on IV ceftriaxone and azithromycin. * Urine for strep and Legionella negative. * Breathing treatments bronchodilators. Titrate oxygen to maintain saturation above 90%. ID on board and says low suspicion for TB. Patient does not have a history of TB. * Sputum for AFBs and QuantiFERON pending. * low risk for TB so taken out of precautions * pulmonology on board; for bronch today. #Acute gastroenteritis: Says he has lost about 5 pounds recently. Stool cultures pending. Patient feeling better and diarrhea is resolving. #Hypercalcemia: Was recently diagnosed with hypercalcemia on outpatient basis but this has resolved. #Type 2 diabetes mellitus: On metformin and dulaglutide. Also has neuropathy so on gabapentin. Insulin sliding scale. Dulaglutide and metformin on hold. Accu-Cheks ACHS. A1c is 6.3 #DVT prophylaxis: Lovenox Charges/Coding Visit Charges Inpatient E&M: 43593 Subs Hosp L2
--- NOTE | 2025-02-27 09:57 | PCM.PRE.AN2 ---
ASA Classification* ASA Classification ASA Classification: 3 Assessment & Plan Anesthesia* Anesthesia Assessment Anesthesia Assessment: Discussed sedation and/or anesthesia options, risks, benefits, and alternatives with patient/parents/legal guardian/POA. Questions invited. The patient/parents/legal guardian/POA seems to understand and agrees to proceed with anesthesia plan. Reviewed the physical assessment, medical history, allergy history and patient home medications list prior to surgery/procedure/anesthetic and documented any changes. Performed airway and anesthesia risk assessments. Anesthesia Type Anesthesia Type: MAC History Source History Obtained from:: Patient and Chart Anesthesia Focused Assessment* Temperature: 98.5 F Pulse Rate: 87 Blood Pressure: 121/79 Respiratory Rate: 14 Pulse Ox: 99 Oxygen Delivery Method: Room Air Airway Assessment Mouth opens: >3 cm Mallampati Score: III Teeth Condition: Intact Neck Range of motion (ROM): Full ROM Labs Anesthesia Preop lab: CBC WBC 2.5 K/mm3 (4.4-11.0) L 02/27/25 04:37 02/27/25 RBC 4.16 M/mm3 (4.6-6.2) L 02/27/25 04:37 02/27/25 Hgb 11.4 g/dL (13.0-16.5) L 02/27/25 04:37 02/27/25 Hct 32.9 % (40-54) L 02/27/25 04:37 02/27/25 Plt Count 152 K/mm3 (150-450) 02/27/25 04:37 02/27/25 CHEMISTRY Potassium 3.8 mmol/L (3.3-5.1) 02/27/25 04:37 02/27/25 Sodium 139 mmol/L (133-145) 02/27/25 04:37 02/27/25 Magnesium 1.9 mg/dL (1.5-2.2) 02/25/25 22:35 02/25/25 Phosphorus 2.1 mg/dL (2.7-4.5) L 02/26/25 05:47 02/26/25 BUN 12 mg/dL (4-19) 02/27/25 04:37 02/27/25 Creatinine 1.23 mg/dL (0.70-1.20) H 02/27/25 04:37 02/27/25 Glucose 104 mg/dL (70-99) H 02/27/25 04:37 02/27/25 POC Glucose 117 mg/dL (74-106) H 02/27/25 06:04 02/27/25 TSH 3.190 uIU/mL (0.300-4.200) 02/25/25 22:35 02/25/25 COAG Pre-Assessment Diagnosis/Proposed Procedure Planned Operative Procedure(s): Flexible fiberoptic bronchoscopy with possible washings, brushings, biopsies and/or needle aspiration. Anesthesia History Anesthesia History - [employer] rep: Anesthesia History - [employer] rep Hx Hospitalization Any Problems With Anesthesia Cholinesterase deficiency You/Your Family Experience fever (hyperthermia) with Relationship Recent Exposure to Contagious No 01/14/16 16:52 Disease Does patient have nerve stimulator Patient instructed to have device shut off --Does patient have Pacemaker or ICD? When Was Last Pacemaker Check QUESTION #4 FULL TEXT: You/Your Family Experience fever (hyperthermia) with Anesthesia Last Oral Intake Last Oral intake: Last Oral Intake NPO since Meds taken in AM with sips of water? Meds patient instructed to take am of surgery Any additional information?: Yes NPO since: 00:00 Meds taken in AM with sips of water?: No PONV PONV - [employer] rep: PONV - [employer] rep Female HX of Motion Sickness HX of N/V After Surgery Non-Smoker Duration of Surgery greater than 60 minutes Number of Risk Factors PONV Score Height & Weight Height & Weight: Anesthesia: Height & Weight Height 6 ft 2 in 02/26/25 08:56 Weight: 89.7 kg 02/27/25 04:53 Body Mass Index (BMI) 25.4 02/27/25 04:53 Respiratory Assessment Respiratory Assessment - [employer] rep: Respiratory Tract Infection Hx - [employer] rep Hx Respiratory Tract Infection Any additional information?: Yes Hx Respiratory Tract Infection: Yes History of Anesthesia Respiratory Infection details: Patient has a consolidation on chest x-ray. Treated with antibiotics. Recheck in a month showed no resolution. CT confirmed. STOP Sleep Apnea STOP Sleep Apnea - [employer] rep: STOP Sleep Apnea - [employer] rep Hx Hypertension No 02/27/25 09:45 Hx Sleep Apnea Yes 02/26/25 03:38 CPAP Yes 02/26/25 03:38 BIPAP No 02/26/25 03:38 Do you snore loudly (louder than talking or can be heard Do you often feel tired/ fatigued/ sleepy during daytime? Has anyone observed you stop breathing during sleep? STOP Results Positive 02/26/25 03:38 QUESTION #5 FULL TEXT : Do you snore loudly (louder than talking or can be heard through closed doors)? 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 Specify any problems Hx of Preganancy in last 3 N/A 02/26/25 03:38 Months Nurse Filling Out Transfusion MSTEFANIC 02/26/25 03:38 & Questions: Date: 02/26/25 02/26/25 03:38 Time: 03:40 02/26/25 03:38 Patient unable to answer at this time (ie. confused, unrespo /Reproduction History /Reproductive History - [employer] rep: /Reproductive Hx- [employer] rep Hx Now Gestational Age (in weeks): EDC: Hx Hx Para Hx Section SAB Active Medications Active Medications: Current Medications Generic Name Dose Route Start Last Admin Trade Name Freq PRN Reason Stop Dose Admin Acetaminophen 650 mg 02/26/25 02:43 Acetaminophen 325 Mg Tablet PO Q6H PRN PRN Pain 1-5/10 or Fever Aspirin 81 mg 02/26/25 08:00 02/26/25 09:57 Aspirin E.C. 81 Mg Tablet PO 81 mg BREAKFAST JEFF Administration Enoxaparin Sodium 40 mg 02/26/25 10:00 02/27/25 09:55 Enoxaparin 40 Mg/0.4 Ml Syringe SC Not Given DAILY JEFF Gabapentin 300 mg 02/26/25 10:00 02/27/25 09:55 Gabapentin 300 Mg Capsule PO Not Given DAILY JEFF Glucagon 1 mg 02/26/25 02:43 Glucagon 1 Mg/Ml Syringe IM X1 PRN HYPOGLYCEMIA Protocol Famotidine 20 mg/ Sodium 10 mls @ 300 mls/hr 02/26/25 01:53 02/26/25 23:01 Chloride IV Infused Q12 JEFF Infusion Ceftriaxone Sodium 1 gm in 50 mls @ 100 mls/hr 02/26/25 22:00 02/27/25 01:45 Rocephin IV Infused 2200 JEFF Infusion Azithromycin 500 mg/ Sodium 255 mls @ 255 mls/hr 02/26/25 22:00 02/27/25 00:27 Chloride IV Infused 2200 JEFF Infusion Dextrose 250 mls @ 0 mls/hr 02/26/25 02:43 Dextrose 10%-Water IV .Q0M PRN HYPOGLYCEMIA Protocol As Directed Sodium Chloride 250 mls @ 15 mls/hr 02/26/25 02:43 IV .[id number] PRN Saline Flush Sodium Chloride 250 mls @ 15 mls/hr 02/26/25 02:43 IV .[id number] PRN Additional IVPB Infusion Insulin Human Lispro 0 unit 02/26/25 07:00 02/27/25 06:07 Insulin Lispro 100 Unit/Ml Insuln.Pen SC Not Given ACHS [facility] Protocol Loratadine 10 mg 02/26/25 10:00 02/27/25 09:54 Loratadine 10 Mg Tablet PO Not Given DAILY JEFF Melatonin 3 mg 02/26/25 02:43 Melatonin 3 Mg Tablet PO QHS PRN PRN INSOMNIA Nutritional Formula (Lactose Free) 120 ml 02/26/25 08:00 02/27/25 07:56 Ensure Clear 120 Ml Liquid PO Not Given TIDCM JEFF Oxycodone HCl 5 mg 02/26/25 02:43 Oxycodone 5 Mg Tablet PO Q6H PRN PRN Pain Score 6-10 Promethazine HCl 6.25 mg 02/26/25 02:43 Promethazine 25 Mg/Ml Syringe IM Q6H PRN PRN NAUSEA/VOMITING Sodium Chloride 10 - 40 ml 02/26/25 02:43 02/26/25 22:49 0.9% Saline Lock 10 Ml Syringe IV 10 ml UD PRN Administration SALINE FLUSH PFSH Medical History Hearing loss, right BiPAP (biphasic positive airway pressure) dependence Sleep apnea COVID Diabetes GERD (gastroesophageal reflux disease) Home Medications ?Medication ?Instructions ?Recorded ?Last Taken ?Type aspirin 81 mg tablet,delayed 81 mg PO DAILY 01/21/25 Unknown History release (Adult Aspirin Regimen) dulaglutide 0.75 mg/0.5 mL 0.75 mg subcut [place]OULTON 01/21/25 Unknown History subcutaneous pen injector (Trulicity) gabapentin 300 mg capsule 300 mg PO DAILY 01/21/25 Unknown History loratadine 10 mg tablet 10 mg PO DAILY 01/21/25 Unknown History (Allerclear) metformin 500 mg tablet,extended 1,000 mg PO BID 01/21/25 Unknown History release 24 hr Allergy/AdvReac Type Severity Reaction Status Date / Time Penicillins (PCN) Allergy Rash Verified 02/25/25 20:45 Surgical History (Updated 02/27/25 @ 10:[address] Jarvis Lauren MD) S/P appendectomy Open right hand fracture Social History Smoking Status: Never smoker Review of Systems (Anesthesia) ROS Narrative System reviewed and no additional complaints, except as documented.
[2025-02-27] MEDS: Lidocaine Jelly 2% 20 ML Syringe (URO-JET) 1 APPLIC (10:27)
[2025-02-27] MEDS: Lidocaine 2% (5ml sdv) 5 ML VIAL.MPF (10:33)
--- NOTE | 2025-02-27 10:41 | OP.BRONCH_ITS ---
Patient Name: Matt Muñoz Procedure Date: 02/27/2025 10:09 AM Date of : 1970 Age: 54 Procedure: Bronchoscopy Indications: Abnormal CT scan of chest Providers: Jericho Myers MD Medicines: See the Anesthesia note for documentation of the administered medications Complications: No immediate complications Procedure: Pre-Anesthesia Assessment: - A History and Physical has been performed. Patient meds and allergies have been reviewed. The risks and benefits of the procedure and the sedation options and risks were discussed with the patient. All questions were answered and informed consent was obtained. Patient identification and proposed procedure were verified prior to the procedure by the physician and the nurse in the procedure room. Mental Status Examination: alert and oriented. Airway Examination: normal oropharyngeal airway. Respiratory Examination: clear to auscultation. CV Examination: normal. ASA Grade Assessment: II - A patient with mild systemic disease. After reviewing the risks and benefits, the patient was deemed in satisfactory condition to undergo the procedure. The anesthesia plan was to use monitored anesthesia care (MAC). Immediately prior to administration of medications, the patient was re-assessed for adequacy to receive sedatives. The heart rate, respiratory rate, oxygen saturations, blood pressure, adequacy of pulmonary ventilation, and response to care were monitored throughout the procedure. The physical status of the patient was re-assessed after the procedure. After I obtained informed consent, the scope was passed under direct vision. Throughout the procedure, the patient's blood pressure, pulse, and oxygen saturations were monitored continuously. The bronchoscope was introduced through the mouth and advanced to the tracheobronchial tree. The procedure was accomplished without difficulty. The patient tolerated the procedure well. Findings: The oropharynx appears normal. The larynx appears normal. The vocal cords appear normal. The subglottic space is normal. The trachea is of normal caliber. The mary is sharp. The tracheobronchial tree was examined to at least the first subsegmental level. Bronchial mucosa and anatomy are normal; there are no endobronchial lesions, and no secretions. The bronchoscope was advanced until wedged at the desired location for bronchoalveolar lavage. BAL was performed in the right middle lobe of the lung and sent for cell count, bacterial culture, viral smears & culture, and fungal & AFB analysis and cytology. 60 mL of fluid were instilled. 25 mL were returned. The return was cloudy. There were no mucoid plugs in the return fluid. The bronchoscope was advanced until wedged at the desired location for bronchoalveolar lavage. BAL was performed in the lingula of the lung and sent for cell count, bacterial culture, viral smears & culture, and fungal & AFB analysis and cytology. 60 mL of fluid were instilled. 25 mL were returned. The return was cloudy. There were no mucoid plugs in the return fluid. Impression: - Abnormal CT scan of chest - The airway examination was normal. - Bronchoalveolar lavage was performed in right middle lobe. - Bronchoalveolar lavage was performed in lingula. Recommendation: - Await BAL results. Procedure Code(s): --- Professional --- 72191, Bronchoscopy, rigid or flexible, including fluoroscopic guidance, when performed; with bronchial alveolar lavage Diagnosis Code(s): --- Professional --- R93.89, Abnormal findings on diagnostic imaging of other specified body structures CPT copyright 2021 [employer] [place] [employer]. All rights reserved. The codes documented in this report are preliminary and upon abstract maker review may be revised to meet current compliance requirements. DO Jericho Beebe MD 02/27/2025 10:40:08 AM This report has been signed electronically. Number of Addenda: 0 Note Initiated On: 02/27/2025 10:09 AM
--- NOTE | 2025-02-27 10:41 | PCM.POST.ANE ---
Anesthesia: Postop Eval I Current Vital Signs Temperature: 97.6 F Pulse Rate: 81 Blood Pressure: 100/76 Respiratory Rate: 20 Pulse Ox: 96 Assessment Airway patent: Yes Spontaneous unlabored respirations: Yes nausea: No Vomiting: No Anesthesia Complication: No Fluid Hydration Crystalloid volume administer (ml): 200 Total IV fluid infused: 200 Progress Note Anesthesia document: Postop Eval 1 completed: Yes
--- NOTE | 2025-02-27 10:50 | POSTOPAN2_ITS ---
Anesthesia Postop Eval I Sum Postop Eval Completion status Anesthesia document: Postop Eval 1 completed: Yes Anesthesia Postop Eval I Summary Anesthesia Postop Eval I Summary: Anesthesia Postop Eval I: Assessment Summary Airway patent Yes 02/27/25 10:41 UTILITY OPERATOR.CSIR Spontaneous unlabored Yes 02/27/25 10:41 UTILITY OPERATOR.CSIR respirations Mental status nausea No 02/27/25 10:41 UTILITY OPERATOR.CSIR Vomiting No 02/27/25 10:41 UTILITY OPERATOR.CSIR Anesthesia Postop Eval I: Fluid Summary Crystalloid volume administer 200 02/27/25 10:41 UTILITY OPERATOR.CSIR (ml) Colloids volume administered ( ml) Blood Product volume administered (ml) Total IV fluid infused 200 02/27/25 10:41 UTILITY OPERATOR.CSIR Anesthesia Postop Eval I: Summary Notes Anesthesia Complication No 02/27/25 10:41 UTILITY OPERATOR.CSIR Anesthesia Complication Comment: Post-operative progress note Anesthesia: Postop Eval II Evaluation Mental status: Awake Pain Level: 0 nausea: No Vomiting: No
--- NOTE | 2025-02-27 10:50 | PCM.POSTANE2 ---
Anesthesia Postop Eval I Sum Postop Eval Completion status Anesthesia document: Postop Eval 1 completed: Yes Anesthesia Postop Eval I Summary Anesthesia Postop Eval I Summary: Anesthesia Postop Eval I: Assessment Summary Airway patent Yes 02/27/25 10:41 CYANIDE POT TENDER.CSIR Spontaneous unlabored Yes 02/27/25 10:41 CYANIDE POT TENDER.CSIR respirations Mental status nausea No 02/27/25 10:41 CYANIDE POT TENDER.CSIR Vomiting No 02/27/25 10:41 CYANIDE POT TENDER.CSIR Anesthesia Postop Eval I: Fluid Summary Crystalloid volume administer 200 02/27/25 10:41 CYANIDE POT TENDER.CSIR (ml) Colloids volume administered ( ml) Blood Product volume administered (ml) Total IV fluid infused 200 02/27/25 10:41 CYANIDE POT TENDER.CSIR Anesthesia Postop Eval I: Summary Notes Anesthesia Complication No 02/27/25 10:41 CYANIDE POT TENDER.CSIR Anesthesia Complication Comment: Post-operative progress note Anesthesia: Postop Eval II Evaluation Mental status: Awake Pain Level: 0 nausea: No Vomiting: No
[2025-02-27 11:15] LABS: Cytology, Body Fluid / CSF SEE PATHOLOGY REPORT
[2025-02-27 11:23] LABS: Cytology, Body Fluid / CSF SEE PATHOLOGY REPORT
[2025-02-27] MEDS: 0.9% Saline Lock 10 ML Syringe IV ×2 (11:47→19:25)
[2025-02-27] MEDS: Famotidine 200 MG/20 ML MDV 20 MG in 0.9% Normal Saline (Pres. free 8 ML 300 MG IV (11:47)
[2025-02-27] MEDS: BENZOCAINE/MENTHOL 1 LOZENGE MUCOUS MEM (13:23)
[2025-02-27] MEDS: Lactobacillis Acidophilus 1 CAP PO ×2 (13:26→16:34)
--- NOTE | 2025-02-27 15:10 | PCM.PN.ID ---
Physical Exam Narrative Feeling ok, mild cough, no fever. Had bronch this AM. Const alert and no apparent distress General Appearance: cooperative Resp normal air movement and clear to auscultation bilaterally Cardio regular rate and regular rhythm GI soft to palpation, non-tender and non-distended Skin no rashes or lesions noted ID ID: Route of nutrition/ use of supplements: [] Nutritional Intake: [] IV Site: [] Hartmann Catheter: [] Assessment & Plan Assessment/Plan (1) Weight loss: (2) Pneumonia: QUALIFIERS: Pneumonia type: due to unspecified organism Laterality: bilateral Lung location: unspecified part of lung Qualified Code(s): J18.9 - Pneumonia, unspecified organism PLAN: Overall low suspicion for TB, now out of isolation. TB quantiferon pending, but this would not rule out active TB. Pulm to see. Pending fungal studies and resp chlamydia testing. 02/27/25 had bronchoscopy. On empiric ceftriaxone/azithro. Given clinical stability, ok for discharge home while workup pending. Would give 4 more days cefdinir 300mg bid. Will follow, d/w pulm
[2025-02-27] MEDS: Ensure Clear 120 ML Liquid PO (16:34)
[2025-02-27 17:44] LABS: Color/Body Fluid COLORLESS; Source- Body Fluid BRONCHIAL LAVAGE
[2025-02-27 17:45] LABS: Appearance/Body Fluid CLEAR
[2025-02-27 17:49] LABS: Red Cell Count/Body Fluid 1529 /mm3; White Blood Count/Body Fluid 111 /mm3
[2025-02-27 17:51] LABS: Body Fluid QC Type(s) BF2
[2025-02-27 19:08] LABS: Color/Body Fluid COLORLESS; Source- Body Fluid BRONCHIAL LAVAGE
[2025-02-27 19:09] LABS: Appearance/Body Fluid CLEAR; Red Cell Count/Body Fluid 1662 /mm3; White Blood Count/Body Fluid 76 /mm3
[2025-02-27 19:10] LABS: Body Fluid QC Type(s) BF2
[2025-02-27] MEDS: 0.9% Normal Saline (1000mL) 1,000 ML 125 ML IV (19:29)
[2025-02-27 21:25] LABS: Neutrophil (Segs) 5 %
[2025-02-27] MEDS: Famotidine 200 MG/20 ML MDV 20 MG in 0.9% Normal Saline (Pres. free 8 ML 10 MG IV (21:43)
[2025-02-27] MEDS: Azithromycin 500 MG in 0.9% Normal Saline (250mL Bag) 250 ML 255 MG IV (22:39)
[2025-02-28 03:27] VITALS: BP 121/82; PULSE 83; RESP 18; TEMP 35.8; O2SAT 98
[2025-02-28 03:44] VITALS: BMI 24.9
[2025-02-28 07:47] LABS: Hematocrit 32.8 % (40-54); Hemoglobin 11.6 g/dL (13.0-16.5); Immature Granulocytes Count 0.010 X10^3/uL (0.0-0.0); Mean Corp Hgb Conc 35.4 g/dL (32-36); Mean Corpuscular Volume 79.6 fL (80-94); Mean Platelet Vol. 9.5 fl (6.2-12.0); NRBC Flagged by Analyzer 0 % (0-5); POSITIVE DIFFERENTIAL YES; Platelet Count 151 K/mm3 (150-450); RBC Distribution Width CV 13.1 % (11.6-14.6); RBC Distribution Width SD 36.8 fl (35.1-43.9); Red Blood Count 4.12 M/mm3 (4.6-6.2); White Blood Count 3.6 K/mm3 (4.4-11.0)
[2025-02-28 08:05] LABS: Anion Gap 8 (5-15); BUN 14 mg/dL (4-19); BUN/Creat Ratio 11.2 RATIO (10-20); Calcium,Total 9.8 mg/dL (7.6-11.0); Carbon Dioxide 23.5 mmol/L (21.0-32.0); Chloride 106 mmol/L (98-108); Estimated Creatinine Clearance 81.02 ml/min (50-250); Glucose 127 mg/dL (70-99); Potassium 4.1 mmol/L (3.3-5.1)
[2025-02-28 08:52] VITALS: BP 138/86; PULSE 86; RESP 18; TEMP 36.7; O2SAT 98
[2025-02-28] MEDS: Aspirin E.C. 81 MG Tablet PO (09:08)
[2025-02-28] MEDS: Lactobacillis Acidophilus 1 CAP PO ×4 (09:09→20:30)
[2025-02-28] MEDS: Famotidine 200 MG/20 ML MDV 20 MG in 0.9% Normal Saline (Pres. free 8 ML 300 MG IV ×2 (09:26→20:30)
[2025-02-28] MEDS: Ensure Clear 120 ML Liquid PO ×3 (09:30→17:49)
[2025-02-28] MEDS: 0.9% Saline Lock 10 ML Syringe IV ×2 (09:33→20:31)
[2025-02-28] MEDS: BENZOCAINE/MENTHOL 1 LOZENGE MUCOUS MEM ×3 (11:26→20:31)
--- NOTE | 2025-02-28 11:32 | PN_ITS ---
Subjective Subjective Patient seen and examined. He had no active complaints. He had bronchoscopy yesterday. Review of systems is otherwise negative. He has remained hemodynamically stable. Objective Data Objective Data Vital Signs: Vital Signs Temp Pulse Resp BP Pulse Ox O2 Del Method 98.1 F 86 18 138/86 H 98 Room Air 02/28/25 08:52 02/28/25 08:52 02/28/25 08:52 02/28/25 08:52 02/28/25 08:52 02/28/25 08:52 Oxygen Delivery Method Room Air Weight: 194 lb 3.636 oz Body Mass Index (BMI) 24.9 Intake & Output: Intake and Output for Last 24 Hours 02/26/25 02/27/25 02/28/25 23:59 23:59 23:59 Intake Total 2635 / 2635 630 / 630 1010 / 1010 Balance 2635 / 2635 630 / 630 1010 / 1010 Lab / Micro Data 02/28/25 06:46 02/28/25 06:46 Labs: Laboratory Results - last 24 hr 02/27/25 11:01: Fluid Source BRONCHIAL LAVAGE, Fluid Color COLORLESS, Fluid Appearance CLEAR, Fluid WBC 76, Fluid RBC 1662, Fluid Tot Cell Count TNP, Fluid Neutrophils 5, Fluid Lymphocytes 36, Fluid Monocytes 39, Fluid Macrophages 20, Fl Pathologist Comment May follow, Fluid Comment 2 Not Reportable 02/27/25 11:15: Fluid Source BRONCHIAL LAVAGE, Fluid Color COLORLESS, Fluid Appearance CLEAR, Fluid WBC 111, Fluid RBC 1529, Fluid Tot Cell Count TNP, Fluid Neutrophils , Fl Pathologist Comment May follow, Fluid Comment 2 Not Reportable 02/27/25 11:34: POC Glucose 127 H 02/27/25 16:36: POC Glucose 154 H 02/27/25 21:38: POC Glucose 121 H 02/28/25 06:46: WBC 3.6 L, RBC 4.12 L, Hgb 11.6 L, Hct 32.8 L, MCV 79.6 L, MCH 28.2, MCHC 35.4, RDW Std Deviation 36.8, RDW Coeff of Samuel 13.1, Plt Count 151, MPV 9.5, Immature Gran % (Auto) 0.300, Neut % (Auto) 72.3 H, Lymph % (Auto) 12.3 L, [place] % (Auto) 10.6 H, Eos % (Auto) 3.9, Baso % (Auto) 0.6, Absolute Neuts (auto) 2.6, Absolute Lymphs (auto) 0.44 L, Nucleated RBC % 0, Sodium 137, Potassium 4.1, Chloride 106, Carbon Dioxide 23.5, Anion Gap 8, BUN 14, C reatinine 1.24 H, Estim Creat Clear Calc 81.02, Est GFR (MDRD) Non-Af 70, BUN/Creatinine Ratio 11.2, Glucose 127 H, Calcium 9.8, POC Glucose 93 Micro: Microbiology 02/26/25 20:40 Sputum, Expectorated/Coughed Gram Stain - Final 02/26/25 20:40 Sputum, Expectorated/Coughed Respiratory Culture - Preliminary Appears to be normal respiratory mary grace. Further studies to follow. 02/27/25 11:01 Bronchial Lavage - Right Middle Lobe Gram Stain - Final 02/27/25 11:15 Wash - Right Middle Lobe Gram Stain - Final 02/26/25 10:30 Stool Stool Lactoferrin - Final 02/26/25 10:30 Stool Enteric Bacteriology - Final 02/26/25 10:30 Stool Clostridioides difficile (PCR) - Final 02/26/25 04:00 Mucosa - Nasopharyngeal Respiratory Panel (PCR) - Final 02/25/25 23:40 Urine, Random Legionella Antigen - Final 02/25/25 23:40 Urine, Random Streptococcus pneumoniae Antigen (M - Final Rhythm Strip Rhythm Strip: Sinus Rhythm Rate: 91 Ectopy: None Physical Exam Const alert, oriented x3, no apparent distress, average body habitus and healthy appearing General Appearance: cooperative HEENT normocephalic, head/scalp atraumatic, hearing grossly normal bilaterally, moist oral mucous membranes and oropharynx normal Eyes PERRL, EOMs intact bilaterally and conjunctivae normal Neck no lymphadenopathy, supple and no JVD Resp Resp Narrative: mildly diminished breath sounds bibasally, no wheezes or crackles. On room air. Cardio regular rate, regular rhythm, S1 normal heart sound and no murmurs GI normal to inspection, nondistended, normoactive bowel sounds, soft to palpation, non-tender and non-distended Extremity normal to inspection, full ROM, normal capillary refill, no clubbing, cyanosis or edema and no calf tenderness General Extremity: no tenderness to palpation of joints or extremities Skin General Skin Exam: no breakdown Neuro oriented x3, CN's II-XII intact bilaterally, moves all extremities and no focal motor deficits Sensorium / Orientation: awake and alert Speech: speech normal Motor Exam: general weakness Psych thought process normal, cooperative and affect normal Appearance: appropriate Assessment & Plan Assessment/Plan (1) Weight loss: (2) Pneumonia: QUALIFIERS: Pneumonia type: due to unspecified organism L aterality: bilateral Lung location: unspecified part of lung Qualified Code(s): J18.9 - Pneumonia, unspecified organism PLAN: Plan #Pneumonia with failed outpatient treatment * Patient currently on room air. CT of the chest abdomen and pelvis showed extensive bilateral mostly nodular airspace disease most consistent with infection TB not excluded. He also had mediastinal, hilar and epigastric as well as retroperitoneal lymph nodes. * Was recently diagnosed with pneumonia and failed outpatient treatment with oral doxycycline. Currently on IV ceftriaxone and azithromycin. * Urine for strep and Legionella negative. * Breathing treatments bronchodilators. Titrate oxygen to maintain saturation above 90%. ID on board and says low suspicion for TB. Patient does not have a history of TB. * Sputum for AFBs and QuantiFERON pending. * low risk for TB so taken out of precautions * pulmonology on board; had bronchoalveolar lavage in right middle lobe and in lingula. * on ceftriaxone and azithromycin. Per ID, to place on PO cefdinir x 4 more days. #Acute gastroenteritis: * Says he has lost about 5 pounds recently. Stool cultures pending. Patient feeling better and diarrhea is resolving. #Hypercalcemia: Was recently diagnosed with hypercalcemia on outpatient basis but this has resolved. #Type 2 diabetes mellitus: On metformin and dulaglutide. Also has neuropathy so on gabapentin. Insulin sliding scale. Dulaglutide and metformin on hold. Accu-Cheks ACHS. A1c is 6.3 #DVT prophylaxis: Lovenox Charges/Coding Visit Charges Inpatient E&M: 34169 Subs Hosp L2
--- NOTE | 2025-02-28 14:22 | NURSING ---
Walking jones at this time. Has walked several times in the jones today already.
[2025-02-28 14:30] VITALS: BP 133/94; PULSE 91; RESP 19; TEMP 36.7; O2SAT 99
[2025-02-28] MEDS: 0.9% Normal Saline (250mL Bag) 250 ML 15 ML IV (20:30)
[2025-02-28] MEDS: Azithromycin 500 MG in 0.9% Normal Saline (250mL Bag) 250 ML 255 MG IV (20:31)
[2025-02-28 20:50] VITALS: BP 149/94; PULSE 83; RESP 18; TEMP 36.6; O2SAT 99
[2025-03-01 03:14] VITALS: BMI 24.5
[2025-03-01 04:45] VITALS: BP 119/80; PULSE 87; RESP 18; TEMP 36.1; O2SAT 98
[2025-03-01 06:38] LABS: Hematocrit 31.2 % (40-54); Hemoglobin 11.0 g/dL (13.0-16.5); Immature Granulocytes Count 0.010 X10^3/uL (0.0-0.0); Mean Corp Hgb Conc 35.3 g/dL (32-36); Mean Corpuscular Volume 79.4 fL (80-94); Mean Platelet Vol. 10.0 fl (6.2-12.0); NRBC Flagged by Analyzer 0 % (0-5); POSITIVE DIFFERENTIAL YES; Platelet Count 157 K/mm3 (150-450); RBC Distribution Width CV 13.2 % (11.6-14.6); RBC Distribution Width SD 37.4 fl (35.1-43.9); Red Blood Count 3.93 M/mm3 (4.6-6.2); White Blood Count 2.9 K/mm3 (4.4-11.0)
[2025-03-01] MEDS: BENZOCAINE/MENTHOL 1 LOZENGE MUCOUS MEM (06:43)
[2025-03-01 06:45] LABS: Differential Indicated SCAN CRITERIA MET
[2025-03-01 07:07] LABS: Anion Gap 11 (5-15); BUN 13 mg/dL (4-19); BUN/Creat Ratio 11.4 RATIO (10-20); Calcium,Total 10.0 mg/dL (7.6-11.0); Carbon Dioxide 22.2 mmol/L (21.0-32.0); Chloride 105 mmol/L (98-108); Estimated Creatinine Clearance 87.36 ml/min (50-250); Glucose 132 mg/dL (70-99); Potassium 3.8 mmol/L (3.3-5.1)
[2025-03-01 07:30] VITALS: BP 147/85; PULSE 91; RESP 18; TEMP 36.5; O2SAT 99
[2025-03-01] MEDS: Ensure Clear 120 ML Liquid PO ×2 (10:41→10:49)
[2025-03-01] MEDS: Lactobacillis Acidophilus 1 CAP PO (10:41)
[2025-03-01] MEDS: Aspirin E.C. 81 MG Tablet PO (10:41)
[2025-03-01 12:16] VITALS: BP 147/85; PULSE 91; RESP 18; TEMP 36.5; O2SAT 99
--- NOTE | 2025-03-01 12:16 | DCINST_ITS ---
Discharge Instructions DC O2, CPAP, BIPAP needs Home O2 Discharge instructions: No Dressing / Incision Discharge Activity: Return to Normal Activity Weight Bearing Status: Weight bearing as tolerated Dressing / Incision Call your doctor if you observe: Fever of 101 or Higher, Shortness of breath, Dizziness, Swelling in the ankles and Chest pain Follow Up Care Test Results: Test results from this visit will be discussed in further detail at your follow- up appointment, if applicable. Discharge Plan Admission Admit Date/Time: 02/26/25 01:44 Primary Reason for Your Visit: pneumonia Attending Provider: Nroi Alex Primary Care Provider: Edouard Mcgee Consulting Providers: Guanakito Sevilla; Cleveland Villareal; Mateo Mills; Brandon Hinojosa; Qasim Moseley; Jericho Myers; Guanakito High; Carlos Alberto Lovell; Zachariah Lockett; Allyson Walker; Shade Sanchez; Prashant Winston; Elliot Rosario; May Florence; Rome Wood; Radha Bhardwaj; Jef Juan; Florentin Min; Everton Garcia; Vicente Wade; Olivia Colvin; Vance Wagner; Issac Quiñonez; Toro Conley; Edouard Cooper Instructions Patient Instructions: ED Pneumonia (Adult) Discharge Orders/Prescriptions Prescriptions: New cefdinir 300 mg capsule 300 mg PO BID Qty: 8 0RF Continued gabapentin 300 mg capsule 300 mg PO DAILY metformin 500 mg tablet extended release 24 hr 1,000 mg PO BID Trulicity 0.75 mg/0.5 mL pen injector 0.75 mg subcut [place]OULTON loratadine [Allerclear] 10 mg tablet 10 mg PO DAILY aspirin [Adult Aspirin Regimen] 81 mg tablet,delayed release (DR/EC) 81 mg PO DAILY Referrals / Follow Up: Jericho Myers DO [Med Staff - Active Staff] - Within 2 Weeks Edouard Mcgee MD [Primary Care Provider] - Within 1 Week Disposition Disposition (needs filled in before D/C Order can be placed): Home, Self Care
--- NOTE | 2025-03-01 12:17 | DS.PCM_ITS ---
Providers Date of Admission: 02/26/25 Date of Discharge: 03/01/25 Primary Care Physician: Dr. Edouard Mcgee MD Consultations 02/26/25 03:19 Consult: Infectious Disease Routine Consulting Provider: Cleveland Villareal Reason for Consult: PNA with possible TB. EMERGENT Consult: No Notified: Yes Date Notified: 02/26/25 Time Notified: 07:06 Method of Notification: Text Consult: Summer Law Clerk / Pulmonary Medicine Routine Consulting Provider: Intensivists/Pulmonary Med Reason for Consult: PNA with possible TB. EMERGENT Consult: No Notified: Yes Date Notified: 02/26/25 Time Notified: 07:07 Method of Notification: Text Reason For Visit: PNEUMONIA (POSSIBLY TB) WITH DIARRHEA, N/V, Diagnosis Discharge Diagnosis (1) Weight loss: Status: Acute Code(s): R63.4 - Abnormal weight loss (2) Pneumonia: Status: Acute Code(s): J18.9 - Pneumonia, unspecified organism Qualifiers: Laterality: bilateral Lung location: unspecified part of lung P neumonia type: due to unspecified organism Qualified Code(s): J18.9 - Pneumonia, unspecified organism Plan #Pneumonia with failed outpatient treatment * Patient currently on room air. CT of the chest abdomen and pelvis showed extensive bilateral mostly nodular airspace disease most consistent with infection TB not excluded. He also had mediastinal, hilar and epigastric as well as retroperitoneal lymph nodes. * Was recently diagnosed with pneumonia and failed outpatient treatment with oral doxycycline. Currently on IV ceftriaxone and azithromycin. * Urine for strep and Legionella negative. * Breathing treatments bronchodilators. Titrate oxygen to maintain saturation above 90%. ID on board and says low suspicion for TB. Patient does not have a history of TB. * Sputum for AFBs and QuantiFERON pending. * low risk for TB so taken out of precautions * pulmonology on board; had bronchoalveolar lavage in right middle lobe and in lingula. * on ceftriaxone and azithromycin. Per ID, to place on PO cefdinir x 4 more days. #Acute gastroenteritis: * Says he has lost about 5 pounds recently. Stool cultures pending. Patient feeling better and diarrhea is resolving. #Hypercalcemia: Was recently diagnosed with hypercalcemia on outpatient basis but this has resolved. #Type 2 diabetes mellitus: On metformin and dulaglutide. Also has neuropathy so on gabapentin. Insulin sliding scale. Dulaglutide and metformin on hold. Accu-Cheks ACHS. A1c is 6.3 #DVT prophylaxis: Lovenox Medications at Discharge Home Medications aspirin 81 mg tablet,delayed release (Adult Aspirin Regimen) 81 mg PO DAILY 01/21/25 dulaglutide 0.75 mg/0.5 mL subcutaneous pen injector (Trulicity) 0.75 mg subcut MOULTON 01/21/25 gabapentin 300 mg capsule 300 mg PO DAILY 01/21/25 loratadine 10 mg tablet (Allerclear) 10 mg PO DAILY 01/21/25 metformin 500 mg tablet,extended release 24 hr 1,000 mg PO BID 01/21/25 cefdinir 300 mg capsule 300 mg PO BID #8 caps 03/01/25 Hospital Course Operations None Procedures Bronchoscopy Summary of Care Provided Minutes Spent on Discharge: 45 Hospital Course: Patient is a 54 y/o male with a PMH as outlined who was admitted via the ED on 02/26/2025 with complaint of fatigue and cough. He had been treated on outpatient basis with oral doxycycline for pneumonia, but his symptoms had not improved so he was brought into the ED. His PCP had ordered a CXR which showed numerous pulmonary nodules and suspected right perihilar lung mass so he was sent in to the ED. He admitted to a 5 pound unintentional weight loss, as well as cough with rust colored sputum. He did not have any history of TB. Chest CT showed extensive bilateral mostly nodular airspace disease most consistent with infection, with TB not excluded, as well as mediastinal, hilar and epigastric as well as retroperitoneal adnenopathy. He was admitted and managed for recurrent pneumonia, with failed outpatient therapy. He was started on IV ceftriaxone and azithromycin and pulmonology and ID were consulted. Urine for strep and legionella negative. Sputum for AFBs and quantiferon testing were ordered. ID reviewed patient and felt he was low risk for TB, so airborne precautions were discontinued. He had a bronchoscopy with broncheoalveolar lavabe on 02/27/2025, with the results pending at time of discharge. His shortness of breath resolved and he felt much better. He was discharged home on 03/01/2025 with a 4 day course of cefdinir, per ID recommendation. He is to follow up with pulmonology to discuss the bronchoscopy results. Patient seen and examined prior to dishcarge. His and children were by his bedside. He had no ac tive cmplaints. Labbs and vitals reiwed. reassured and her concerns addressed. Physical Exam Const alert, oriented x3, no apparent distress, average body habitus and healthy appearing General Appearance: cooperative and comfortable Orientation / Consciousness: awake HEENT normocephalic, head/scalp atraumatic, hearing grossly normal bilaterally, moist oral mucous membranes and oropharynx normal Mouth: oral and palatal mucosa normal Eyes PERRL, EOMs intact bilaterally and conjunctivae normal Neck no lymphadenopathy, supple and no JVD Resp normal respiratory effort, normal air movement, no retractions, no use of accessory muscles and clear to auscultation bilaterally Resp Narrative: mildly diminished breath sounds bibasally, no wheezes or crackles. On room air. Cardio regular rate, regular rhythm, S1 normal heart sound and no murmurs GI normal to inspection, nondistended, normoactive bowel sounds, soft to palpation, non-tender and non-distended Extremity normal to inspection, full ROM, normal capillary refill, no clubbing, cyanosis or edema and no calf tenderness General Extremity: no tenderness to palpation of joints or extremities Skin no rashes or lesions noted General Skin Exam: no breakdown Neuro oriented x3, CN's II-XII intact bilaterally, moves all extremities and no focal motor deficits Sensorium / Orientation: awake, alert, oriented to person, oriented to place and oriented to time Speech: speech normal Motor Exam: general weakness Psych thought process normal, cooperative and affect normal Appearance: appropriate Weight / BMI Weight Weight: 191 lb 2.252 oz Body Mass Index (BMI) 24.5 ABG / Lab / Microbiology Data 03/01/25 05:48 03/01/25 05:48 Laboratory: Laboratory Results - last 24 hr 02/28/25 16:45: POC Glucose 125 H 02/28/25 20:28: POC Glucose 118 H 03/01/25 05:48: WBC 2.9 L, RBC 3.93 L, Hgb 11.0 L, Hct 31.2 L, MCV 79.4 L, MCH 28.0, MCHC 35.3, RDW Std Deviation 37.4, RDW Coeff of Samuel 13.2, Plt Count 157, MPV 10.0, Immature Gran % (Auto) 0.300, Neut % (Auto) 56.9, Lymph % (Auto) 19.7, [place] % (Auto) 14.5 H, Eos % (Auto) 7.9 H, Baso % (Auto) 0.7, Absolute Neuts (auto) 1.7 L, Absolute Lymphs (auto) 0.57 L, Nucleated RBC % 0, Sodium 138, Potassium 3.8, Chloride 105, Carbon Dioxide 22.2, Anion Gap 11, BUN 13, Creatinine 1.15, Estim Creat Clear Calc 87.36, Est GFR (MDRD) Non-Af 77, BUN/Creatinine Ratio 11.4, Glucose 132 H, Calcium 10.0 03/01/25 06:38: POC Glucose 115 H Microbiology: Microbiology 02/27/25 11:15 Wash - Right Middle Lobe Gram Stain - Final 02/27/25 11:15 Wash - Right Middle Lobe Respiratory Culture - Final Mixed normal respiratory mary grace. No Streptococcus pneumoniae, beta-hemolytic Streptococcus or Staphylococcus aureus isolated. 02/27/25 11:01 Bronchial Lavage - Right Middle Lobe Gram Stain - Final 02/27/25 11:01 Bronchial Lavage - Right Middle Lobe Respiratory Culture - Final Mixed normal respiratory mary grace. No Streptococcus pneumoniae, beta-hemolytic Streptococcus or Staphylococcus aureus isolated. 02/26/25 20:40 Sputum, Expectorated/Coughed Gram Stain - Final 02/26/25 20:40 Sputum, Expectorated/Coughed Respiratory Culture - Final Mixed normal respiratory mary grace. No Streptococcus pneumoniae, beta-hemolytic Streptococcus or Staphylococcus aureus isolated. 02/26/25 10:30 Stool Stool Lactoferrin - Final 02/26/25 10:30 Stool Enteric Bacteriology - Final 02/26/25 10:30 Stool Clostridioides difficile (PCR) - Final 02/26/25 04:00 Mucosa - Nasopharyngeal Respiratory Panel (PCR) - Final 02/25/25 23:40 Urine, Random Legionella Antigen - Final 02/25/25 23:40 Urine, Random Streptococcus pneumoniae Antigen (M - Final D/C Instructions Discharge Activity: Return to Normal Activity Weight Bearing Status: Weight bearing as tolerated Call your doctor if you observe: Fever of 101 or Higher, Shortness of breath, Dizziness, Swelling in the ankles and Chest pain DC O2, CPAP, BIPAP Needs Home O2 Discharge instructions: No Meaningful Use Info Meaningful Use Meaningful Use Diagnoses (Choose all that apply): None applicable Discharge Plan Admission Admit Date/Time: 02/26/25 01:44 Primary Reason for Your Visit: pneumonia Attending Provider: Nori Alex Primary Care Provider: Edouard Mcgee Consulting Providers: Guanakito Sevilla; Cleveland Villareal; Mateo Mills; Brandon Hinojosa; Qasim Moseley; Jericho Myers; Guanakito High; Carlos Alberto Lovell; Zachariah Lockett; Allyson Walker; Shade Sanchez; Prashant Winston; Elliot Rosario; May Florence; Rome Wood; Radha Bhardwaj; Jef Juan; Florentin Min; Everton Garcia; Vicente Wade; Olivia Colvin; Vance Wagner; Issac Quiñonez; Toro Conley; Edouard Cooper Instructions Patient Instructions: ED Pneumonia (Adult) Discharge Orders/Prescriptions Prescriptions: New cefdinir 300 mg capsule 300 mg PO BID Qty: 8 0RF Continued gabapentin 300 mg capsule 300 mg PO DAILY metformin 500 mg tablet extended release 24 hr 1,000 mg PO BID Trulicity 0.75 mg/0.5 mL pen injector 0.75 mg subcut [place] loratadine [Allerclear] 10 mg tablet 10 mg PO DAILY aspirin [Adult Aspirin Regimen] 81 mg tablet,delayed release (DR/EC) 81 mg PO DAILY Referrals / Follow Up: Jericho Myers DO [Med Staff - Active Staff] - Within 2 Weeks Edouard Mcgee MD [Primary Care Provider] - Within 1 Week Disposition Disposition (needs filled in before D/C Order can be placed): Home, Self Care Charges/Coding Visit Charges Inpatient E&M: 77995 Disch Hosp >30min
[2025-03-02 12:09] LABS: Vitamin D 1,25-Dihydroxy 87.0 pg/mL (24.8-81.5)
[2025-03-02 15:16] LABS: Pathologist Comment/Body Fluid Reviewed
[2025-03-02 15:19] LABS: Pathologist Comment/Body Fluid Reviewed
[2025-03-03 18:09] LABS: QNTFERON TB Mitogen Value > 10.00 IU/mL (.); QNTFERON TB Nil Value 0.32 IU/mL (.); QNTFERON TB1+ Ag Value 0.45 IU/mL (.); QNTFERON TB2+ Ag Value 0.50 IU/mL (.); QNTIFERON TB Positive Criteria Negative (Negative)
[2025-03-03 18:09] LABS: Aspirgillus flavus Negative (Neg:<1:1); Aspirgillus fumigatus Negative (Neg:<1:1); Aspirgillus niger Negative (Neg:<1:1)
== END 2025-03-01 14:09 | disposition home or self-care (01) | DRG 195 ==
LOC: ED 22:02 → PCU 02-26 02:30
PROVIDERS: Internal Medicine Critical Care Medicine; Internal Medicine Infectious Disease; Admitting Provider Internal Medicine; Emergency Provider Emergency Medicine; PCP Family Medicine; Visit Provider Student in an Organized Health Care Education/Training Program
PROC: 0BJ08ZZ Inspection of Tracheobronchial Tree, Via Natural or Artificial Opening Endoscopic (ICD-10-PCS; CPT 31622; principal; 2025-02-27 09:45)
DX: J18.9 Pneumonia, unspecified organism (principal); E11.40 Type 2 diabetes mellitus with diabetic neuropathy, unspecified; R63.4 Abnormal weight loss; E83.52 Hypercalcemia; G47.30 Sleep apnea, unspecified; J30.2 Other seasonal allergic rhinitis; K52.9 Noninfective gastroenteritis and colitis, unspecified; Z86.16 Personal history of COVID-19; Z79.82 Long term (current) use of aspirin; Z79.84 Long term (current) use of oral hypoglycemic drugs; Z79.85 Long-term (current) use of injectable non-insulin antidiabetic drugs; Z68.24 Body mass index [BMI] 24.0-24.9, adult
CPT/HCPCS: 36415; 71260; 74177; 80048; 80053; 81001; 82607; 82652; 82962; 83036; 83605; 83630; 83735; 84100; 84443; 85025; 86480; 86606; 86698; 86703; 87015; 87070; 87101; 87116; 87177; 87205; 87206; 87209; 87252; 87278; 87449; 87493; 87506; 87633; 87899; 88108; 88305; 88313; 89050; 93005; 94668; 99285; Q9967; A4216; J2405